=== PATIENT | male | born 1965 | race Caucasian/White ===

== ENCOUNTER 2022-12-14 10:54 | Outpatient (AMB) | payer OTHER, SELFPAY ==
--- OUTSIDE RECORDS SUMMARY | 2022-12-14 10:57 | XMS_ITS | Continuity of Care Document ---
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 Name Role Phone Casey Suarez MD Primary Care Physician Encounter [facility] Date(s): 11/25/20 - 12/25/20 [facility] [place] Adult [address] [place] [address]- Allergies, Adverse Reactions, Alerts Substance Reaction Severity Status amoxicillin heart racing Active acetaminophen-codeine ANAPHYLAXSIS Active Augmentin swelling of throat, diff breath, rash Active Bee Stings anaphylactic Active Immunizations Given and Recorded Vaccine Date Status Refusal Reason SARS-CoV-2 (COVID-19) mRNA BNT-162b2 vac 09/21/20 Recorded SARS-CoV-2 (COVID-19) mRNA BNT-162b2 vac 08/29/20 Recorded influenza virus vaccine, inactivated 04/22/20 Give n influenza virus vaccine, inactivated 1 05/26/19 Gi nini influenza virus vaccine, inactivated 03/21/18 Give n influenza virus vaccine, inactivated 03/06/17 Wong rded influenza virus vaccine, inactivated 2 03/10/16 Re corded influenza virus vaccine, inactivated 05/08/15 Wong rded pneumococcal 23-valent vaccine 3 05/06/17 Given pneumococcal 23-valent vaccine 04/21/16 Recorded pneumococcal 23-valent vaccine 04/20/16 Recorded pneumococcal 23-valent vaccine 12/18/15 Given tetanus/diphtheria/pertussis, acel(Tdap) 04/29/16 Given tetanus-diphtheria toxoids (Td) 01/03/14 Recorded Not Given Vaccine Date Status Refusal Reason Influenza Virus Vaccine (oldterm) 04/21/19 Not Giv en Parent Or Guardian Refuses 1Result Comment: Pt tolerated well. [facility] #[id number] 2Location History: [place] 3Result Comment: [05/06/2017] [facility]:[id number] Medications amiodarone 200 mg oral tablet 200 mg, 1, tablet, By Mouth, 2 times a day, # 60 tablet, Refills 0, Tot. Refills 0, Maintenance, 11/13/20 9:34:00 EDT, Route to Pharmacy Electronically, [facility], Partial fill upon patient request if the prescription is for a schedule... Start Date: 11/13/20 Status: Ordered aspirin 81 mg oral delayed release tablet 81 mg, 1, tablet, By Mouth, Daily, Future refills to come from cardiology or PCP, # 30 tablet, Refills 0, Tot. Refills 0, Maintenance, 12/13/20 9:32:00 EDT, Route to Pharmacy Electronically, [facility] #[id number], Partial fill upon patient reque... Start Date: 12/13/20 Stop Date: 01/12/21 Status: Ordered atorvastatin 80 mg oral tablet 1 tablet = 80 mg, By Mouth, Daily at bedtime, # 90 tablet, 4 Refills, Maintenance, 02/07/21 10:28:00 EDT, Tablet, [facility] #[id number], Partial fill upon patient request if the prescription isfor a schedule II opioid drug., 167.64, cm, ... Start Date: 02/07/21 Stop Date: 05/03/22 Status: Ordered atorvastatin 80 mg oral tablet 1 tablet = 80 mg, By Mouth, Daily at bedtime, for 30 days, # 30 tablet, 1 Refills, Hard Stop 02/07/21 10:28:00 EDT, 12/09/20 10:28:00 EDT, Tablet, [facility] #[id number], Partial fill upon patient request if the prescription is for a schedule II... Start Date: 12/09/20 Stop Date: 02/07/21 Status: Ordered clopidogrel 75 mg oral tablet 75 mg, 1, tablet, By Mouth, Daily, # 30 tablet, Refills 11, Tot. Refills 11, Maintenance, 12/09/20 17:12:00 EDT, Route to Pharmacy Electronically, [facility] #[id number], Partial fill upon patient request if the prescription is for a schedule II... Start Date: 12/09/20 Status: Ordered docusate sodium 100 mg oral tablet = 100 mg, By Mouth, 2 times a day, # 6 tablet, 0 Refills, Maintenance, 11/13/20 9:34:00 EDT, Tablet, [facility], Partial fill upon patient request if the prescription is for a schedule II opioid drug., 167.64, cm, 11/13/20 6:08:00 EDT, H... Start Date: 11/13/20 Stop Date: 11/16/20 Status: Ordered EpiPen 2-Sameer 0.3 mg injectable kit = 0.3 mg, Intramuscular, Once, Must go to hospital if used, # 1 box, 1 Refills, Soft Stop, 01/28/1710:33:03 Start Date: 01/28/17 Status: Ordered gabapentin 300 mg oral capsule 300 mg, 1, capsule, By Mouth, 3 times a day, # 90 capsule, Refills 6, Tot. Refills 6, Maintenance, 11/13/20 9:32:00 EDT, Route to Pharmacy Electronically, [facility], Partial fill upon patient request, 167.64, cm, 11/13/20 6:08:00 EDT, H... Start Date: 11/13/20 Stop Date: 06/11/21 Status: Ordered metoprolol 50 mg oral tablet 50 mg, 1, tablet, By Mouth, 2 times a day, Future refills to come from cardiology or PCP, # 60 capsule, Refills 0, Tot. Refills 0, Maintenance, 12/13/20 9:33:00 EDT, Route to Pharmacy Electronically,[facility] #[id number], Metoprolol tartrate ta... Start Date: 12/13/20 Stop Date: 01/12/21 Status: Ordered multivitamin Multiple Vitamins oral tablet 1 tablet, By Mouth, Daily, # 30 tablet, 0 Refills, Maintenance, 12/09/20 17:12:00 EDT, Tablet, [facility] #[id number], 1 tablet By Mouth Daily, 167.64, cm, 11/22/20 15:34:00 EDT, Height, 63.64, kg, 10/30/20 11:22:00 EDT, Dry Weight Start Date: 12/09/20 Stop Date: 06/07/21 Status: Ordered Nutritional Supplements See Instructions, # 90 each, Refills 11, Tot. Refills 11, Maintenance, High Protein Ensure Use TID DX Pancreatitis, Weight Loss ICD 10 K85.90 R63.4 3 [place] 3 Vanilla Height 5'6 Weight 130lbs, 12/20/20 7:33:00 EDT, Supply Start Date: 12/20/20 Status: Ordered omeprazole 40 mg oral enteric coated capsule 1 capsule = 40 mg, By Mouth, Daily, # 30 capsule, 10 Refills, Maintenance, 04/22/20 13:08:00 EST, EC Capsule, [facility] #[id number], 168, cm, 04/22/20 12:49:00 EST, Height, 63.5, kg, 08/07/19 9:46:00 EDT, Dry Weight Start Date: 04/22/20 Stop Date: 03/18/21 Status: Ordered pedialyte pedialyte, See Instructions, # 30 each, Refills 11, Tot. Refills 11, Maintenance, qd Dx: wt loss, 12/10/20 15:44:00 EDT, Supply Start Date: 12/10/20 Status: Ordered PEG-3350 with Electrolytes (Eqv-GoLYTELY) oral powder for reconstitution See Instructions, 1 glass every 15-30 minutes until finished, # 4,000 mL, 0 Refills, Maintenance, 08/26/20 16:28:00 EDT, [facility] #[id number], Partial fill upon patient request if the prescription is for a schedule II opioid drug., 1 glass ever... Start Date: 08/26/20 Status: Ordered ProAir HFA 90 mcg/inh inhalation aerosol with adapter 2, puffs, Inhalation, Every 6 hours, PRN, # 8.5 Gm, Refills 5, Tot. Refills 5, Maintenance, 07/04/20 8:18:00 EST, Aerosol, Route to Pharmacy Electronically, [id number], [facility] #[id number], 168, cm, 06/14/20 10:38:00... Start Date: 07/04/20 Status: Ordered tamsulosin 0.4 mg oral capsule 0.4 mg, 1, capsule, By Mouth, Daily, PER BELL HODGES, # 90 capsule, Refills 1, Tot. Refills 1, Maintenance, 10/16/20 8:15:00 EDT, Route to Pharmacy Electronically, [facility] #[id number], Partial fill upon patient request, 168, cm, 10/16/20... Start Date: 10/16/20 Status: Ordered traZODone 150 mg oral tablet 1 tablet, By Mouth, Daily at bedtime, PRN NEEDED FOR SLEEP, # 90 tablet, 1 Refills, Maintenance,10/16/20 8:15:00 EDT, [facility] #[id number], 168, cm, 10/16/20 7:49:00 EDT, Height, 60, kg, 10/16/20 7:49:00 EDT, Dry Weight Start Date: 10/16/20 Stop Date: 04/14/21 Status: Ordered Vicodin 5/500 Tablet By Mouth, Every 6 hours, 0 Refills, Maintenance, 04/20/19 14:26:28 EST, Partial fill upon patient request Start Date: 04/20/19 Status: Ordered Problem List Condition Effective Dates Status Health Status Inform ant Necrotizing pancreatitis(Confirmed) Active ETOH abuse(Confirmed) Active Atherosclerosis(Confirmed) 1 Active 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) 2 02/02/17 Active Chronic anemia(Confirmed) Active Chronic back pain(Confirmed) Active Chronic obstructive pulmonar y disease (COPD)(Confirmed) Active Brain concussion(Confirmed) Active Difficulty sleeping(Confirmed) Active Right rotator cuff tear(Confirmed) Active History of DVT (deep vein thrombosis)(Confirmed) Active Right hand pain(Confirmed) Active History of colonoscopy(Confirmed) 3 Active History of shoulder surgery( Confirmed) 4 Active Hypercholesterolemia(Confirmed) Active HTN (hypertension)(Confirmed) Active Cognitive impairment(Confirmed) Active Insomnia(Confirmed) 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 2Repeat EGD in 07/2020 for surveillance 73124; repeat 2019 4R shoulder 2017 5Dr. Jimbo (ENT surgeons) Social History Social History Type Response Smoking Status Current every day herve toney entered on: 12/17/15 Sex
--- OUTSIDE RECORDS SUMMARY | 2022-12-14 10:57 | XMS_ITS | Continuity of Care Document ---
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 Name Role Phone Casey Suarez MD Primary Care Physician Encounter [facility] [place](s): 08/13/21 - 10/23/[address] [address] Attending Physician: Evelio Santiago MD Admitting Physician: Evelio Santiago MD Allergies, Adverse Reactions, Alerts Substance Reaction Severity Status Bee Stings anaphylactic Active Augmentin swelling of throat, diff breath, rash Active amoxicillin heart racing Active acetaminophen-codeine ANAPHYLAXSIS Active Immunizations Given and Recorded Vaccine Date Status Refusal Reason SARS-CoV-2 (COVID-19) mRNA BNT-162b2 vac 05/12/21 Given SARS-CoV-2 (COVID-19) mRNA BNT-162b2 vac 09/21/20 Recorded SARS-CoV-2 (COVID-19) mRNA BNT-162b2 vac 08/29/20 Recorded influenza virus vaccine, inactivated 1 03/20/21 Gi nini influenza virus vaccine, inactivated 04/22/20 Give n influenza virus vaccine, inactivated 2 05/26/19 Gi nini influenza virus vaccine, inactivated 03/21/18 Give n influenza virus vaccine, inactivated 03/06/17 Wong rded influenza virus vaccine, inactivated 3 03/10/16 Re corded influenza virus vaccine, inactivated 05/08/15 Wong rded pneumococcal 23-valent vaccine 4 05/06/17 Given pneumococcal 23-valent vaccine 04/21/16 Recorded pneumococcal 23-valent vaccine 04/20/16 Recorded pneumococcal 23-valent vaccine 12/18/15 Given tetanus/diphtheria/pertussis, acel(Tdap) 04/29/16 Given tetanus-diphtheria toxoids (Td) 01/03/14 Recorded Not Given Vaccine Date Status Refusal Reason Influenza Virus Vaccine (oldterm) 04/21/19 Not Giv en Parent Or Guardian Refuses 1Result Comment: [facility]# [address] [id number] 2Result Comment: Pt tolerated well. [facility] #[id number] 3Location History: [facility] 4Result Comment: [05/06/2017] [facility]LY [facility]:[id number] Medications aspirin 81 mg oral delayed release tablet 1 tablet, By Mouth, Daily, # 90 tablet, 0 Refills, [facility] #[id number], 167.6, cm, :54:00 EDT, Height, 63.6, kg, 09/22/21 9:54:00 EDT, Dry Weight Start Date: 10/10/21 Status: Ordered atorvastatin 80 mg oral tablet 1 tablet = 80 mg, By Mouth, Daily at bedtime, # 90 tablet, 3 Refills, Maintenance, 08/14/21 15:28:00 EDT, Tablet, [facility] #[id number], 167.64, cm, 08/14/21 15:12:00 EDT, Height, 63.64, kg, 10/30/20 11:22:00 EDT, Dry Weight Start Date: 08/14/21 Stop Date: 08/09/22 Status: Ordered clopidogrel 75 mg oral tablet 75 mg, 1, tablet, By Mouth, Daily, # 30 tablet, Refills 11, Tot. Refills 11, Maintenance, 12/09/20 17:12:00 EDT, Route to Pharmacy Electronically, [facility] #[id number], Partial fill upon patient request if the prescription is for a schedule II... Start Date: 12/09/20 Status: Ordered EpiPen 2-Sameer 0.3 mg injectable kit = 0.3 mg, Intramuscular, Once, Must go to hospital if used, # 1 each, 1 Refills, Soft Stop, 01/09/21 14:45:00 EDT, [facility] #[id number], 167.64, cm, 01/09/21 14:27:00 EDT, Height, 63.64, kg, 10/30/20 11:22:00 EDT, Dry Weight Start Date: 01/09/21 Status: Ordered gabapentin 300 mg oral capsule 600 mg, 2, capsule, By Mouth, 3 times a day, # 540 capsule, Refills 6, Tot. Refills 6, Maintenance,01/09/21 14:43:00 EDT, Do Not Route, Partial fill upon patient request Start Date: 01/09/21 Stop Date: 08/07/21 Status: Ordered Large Blood Pressure Cuff Large Blood Pressure Cuff, See Instructions, # 1 each, Refills 0, Tot. Refills 0, Maintenance, Large BP Cuff use as directed dx hypertension ICD 10 I11.9 Length of need Lifetime Weight 130lbs height 5'6, 12/27/20 12:39:00 EDT, Supply Start Date: 12/27/20 Status: Ordered Metoprolol Succinate ER 50 mg oral tablet, extended release 1 tablet, By Mouth, Daily, # 90 tablet, 1 Refills, [facility] #[id number], 167.6, cm, :54:00 EDT, Height, 63.6, kg, 09/22/21 9:54:00 EDT, Dry Weight Start Date: 10/06/21 Status: Ordered multivitamin Multiple Vitamins oral tablet 1 tablet, By Mouth, Daily, # 90 tablet, 1 Refills, [facility] #[id number], 90, TAKE 1 TABLET BY MOUTH DAILY, 167.64, cm, 04/21/21 13:13:00 EST, Height, 63.64, kg, 10/30/20 11:22:00 EDT, Dry Weight Start Date: 07/10/21 Status: Ordered Nutritional Supplements See Instructions, # 90 each, Refills 11, Tot. Refills 11, Maintenance, High Protein Ensure Use TID DX Pancreatitis, Weight Loss ICD 10 K85.90 R63.4 3 [place] 3 Vanilla Height 5'6 Weight 130lbs, 12/20/20 7:33:00 EDT, Supply Start Date: 12/20/20 Status: Ordered omeprazole 40 mg oral enteric coated capsule 1 capsule = 40 mg, By Mouth, Daily, # 30 capsule, 2 Refills, Maintenance, 09/10/21 14:25:00 EDT, ECCapsule, [facility] #[id number], 167.64, cm, 09/01/21 8:31:00 EDT, Height, 63.64, kg, 10/30/2110:22:00 EDT, Dry Weight Start Date: 09/10/21 Stop Date: 12/09/21 Status: Ordered Paxlovid 150 mg-100 mg oral tablet See Instructions, follow package instructions, not renally impaired, # 30 tablet, 0 Refills, Maintenance, 09/23/21 15:45:00 EDT, [facility] #[id number], Partial fill upon patient request if the prescription is for a schedule II opioid drug., foll... Start Date: 09/23/21 Status: Ordered PEG-3350 with Electrolytes (Eqv-GoLYTELY) oral powder for reconstitution See Instructions, 1 glass every 15-30 minutes until finished, # 4,000 mL, 0 Refills, Maintenance, 08/26/20 16:28:00 EDT, [facility] #[id number], Partial fill upon patient request if the prescription is for a schedule II opioid drug., 1 glass ever... Start Date: 08/26/20 Status: Ordered ProAir HFA 90 mcg/inh inhalation aerosol with adapter 2, puffs, Inhalation, Every 6 hours, PRN, # 8.5 Gm, Refills 5, Tot. Refills 5, Maintenance, 07/04/20 8:18:00 EST, Aerosol, Route to Pharmacy Electronically, [id number], [facility] #[id number], 168, cm, 06/14/20 10:38:00... Start Date: 07/04/20 Status: Ordered pulse oxmeter pulse oxmeter, See Instructions, # 1 each, Refills 0, Tot. Refills 0, Maintenance, Pulse oximeter use as directed dx copd Icd 10 J44.9 Length of need Lifetime height 5'6 weight 130lbs, 12/27/20 12:44:00 EDT, Supply Start Date: 12/27/20 Status: Ordered standing scale standing scale, See Instructions, # 1 each, Refills 0, Tot. Refills 0, Maintenance, standing scale use as directed dx weight loss Icd 10 R63.4 length of use lifetime weight 130lbs ht 5'6, 12/27/20 12:47:00 EDT, Supply Start Date: 12/27/20 Status: Ordered tamsulosin 0.4 mg oral capsule 1, capsule, By Mouth, Daily, # 90 capsule, Refills 1, Route to Pharmacy Electronically, [facility] #[id number], 167.6, cm, 09/22/21 9:54:00 EDT, Height, 63.6, kg, 09/22/21 9:54:00 EDT, Dry Weight Start Date: 10/10/21 Status: Ordered teds stockings teds stockings, See Instructions, # 1 each, Refills 0, Tot. Refills 0, Maintenance, teds stockings 1 pair use as directed dx deep veing thrombosis icd 10 I 82.503 length of need lifetime 130lbs ht 5'6, 12/27/20 13:07:00 EDT, Supply Start Date: 12/27/20 Status: Ordered Teds stockings bilateral legs Teds stockings bilateral legs, See Instructions, # 2 each, Refills 0, Tot. Refills 0, Maintenance, Teds compression stockings bilateral legs use as directed Length: Above the calf 2 pairs DX: Deep vein thrombosis Icd 10 I82.503 Length of need: L... 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) 2 02/02/17 Active Chronic anemia(Confirmed) Active Chronic back pain(Confirmed) Active Chronic obstructive pulmonar y disease (COPD)(Confirmed) Active Brain concussion(Confirmed) Active Difficulty sleeping(Confirmed) Active Right rotator cuff tear(Confirmed) Active History of DVT (deep vein thrombosis)(Confirmed) Active Right hand pain(Confirmed) Active History of alcohol abuse(Confirmed) Active History of colonoscopy(Confirmed) 3 Active History of coronary artery b ypass graft(Confirmed) Active History of shoulder surgery( Confirmed) 4 Active Hypercholesterolemia(Confirmed) Active HTN (hypertension)(Confirmed) Active Cognitive impairment(Confirmed) Active Infected sebaceous cyst(Confirmed) Active Leukoplakia of oral mucosa(C onfirmed) 5 Active Nocturia(Confirmed) Active Paresthesias(Confirmed) Active Postconcussion syndrome(Confirmed) Active PTSD (post-traumatic stress disorder)(Confirmed) Active Depression, major, recurrent , in remission(Confirmed) Active Sciatica(Confirmed) Active Shoulder pain, right(Confirmed) Active Tobacco use(Confirmed) Active Tubular adenoma of colon(Confirmed) 02/02/17 Active 1Atherosclerosis by lumbar spine x-ray 2018. 2Repeat EGD in 07/2020 for surveillance 46739; repeat 2019 4R shoulder 2018 5Dr. Jimbo (ENT surgeons) Vital Signs Most recent to oldest [Reference Range]: 1 Height 167.6 cm (09/22/21 9:54 AM) Weight 63.6 kg (09/22/21 9:54 AM) Body Mass Index [18.5-24.99] 22.64 (09/22/21 9:54 AM) Dry Weight 63.6 kg (09/22/21 9:54 AM) Weight Obtained Via Patient/family state d (09/22/21 9:54 AM) Dry Weight Obtained Via Patient/family s tated (09/22/21 9:54 AM) Social History Social History Type Response Smoking Status Current every day herve toney entered on: 12/17/15 Sex
--- OUTSIDE RECORDS SUMMARY | 2022-12-14 10:57 | XMS_ITS | Continuity of Care Document ---
Author Name Unknown Organization [facility] [place] Address [address] [place] [address]- Care Team Providers Care Customer Care Voice Consultant Name Role Phone Casey Suarez MD Primary Care Physician [phone] Encounter [facility] Date(s): 02/12/20 - 03/13/20 [facility] [address] [place] [address] Allergies, Adverse Reactions, Alerts Substance Reaction Severity Status amoxicillin unknown Active acetaminophen-codeine ANAPHYLAXSIS Active Augmentin swelling of throat, diff breath, rash Active Bee Stings Bee Active Immunizations Given and Recorded Vaccine Date Status Refusal Reason influenza virus vaccine, inactivated 1 05/26/19 Gi nini influenza virus vaccine, inactivated 03/21/18 Give n influenza virus vaccine, inactivated 03/06/17 Wong rded influenza virus vaccine, inactivated 2 03/10/16 Re corded pneumococcal 23-valent vaccine 3 05/06/17 Given pneumococcal 23-valent vaccine 04/21/16 Recorded pneumococcal 23-valent vaccine 12/18/15 Given tetanus/diphtheria/pertussis, acel(Tdap) 04/29/16 Given Not Given Vaccine Date Status Refusal Reason Influenza Virus Vaccine (oldterm) 04/21/19 Not Giv en Parent Or Guardian Refuses 1Result Comment: Pt tolerated well. [facility] #[id number] 2Location History: [place] 3Result Comment: [05/06/2017] [facility]:[id number] Medications albuterol 0.083% inhalation solution 3 mL = 2.5 mg, Inhalation, Every 6 hours, # 120 each, 2 Refills, Maintenance, 07/18/18 13:46:17 EST, Solution Start Date: 07/18/18 Status: Ordered aspirin 81 mg oral tablet 1 tablet = 81 mg, By Mouth, Daily, 0 Refills, Maintenance, 07/24/19 9:23:00 EST Start Date: 07/24/19 Status: Ordered Creon 36,000 units oral delayed release capsule 1 capsule, By Mouth, 3 times a day, with each meal, # 90 capsule, 3 Refills, Maintenance, 08/07/19 11:39:00 EDT, [facility] #[id number], 1 capsule By Mouth 3 times a day,Instr:with each meal, 168, cm, 08/07/19 9:46:00 EDT, Height, 63.5, kg, 08/06... Start Date: 08/07/19 Status: Ordered Crestor 40 mg oral tablet 1 tablet = 40 mg, By Mouth, Daily, # 90 tablet, 3 Refills, Maintenance, 12/28/19 11:53:00 EDT, Tablet, [facility] #[id number], 168, cm, 10/13/19 10:19:00 EDT, Height, 63.5, kg, 08/07/19 9:46:00 EDT, Dry Weight Start Date: 12/28/19 Stop Date: 12/22/20 Status: Ordered ENSURE/VANILLA ENSURE/VANILLA, See Instructions, # 90 each, Refills 1, Tot. Refills 1, Maintenance, VANILLA ENSURETID DX PANCREATITIS AND WEIGHT LOSS, 07/24/19 9:22:00 EST, Compound Start Date: 07/24/19 Status: Ordered EpiPen 2-Sameer 0.3 mg injectable kit = 0.3 mg, Intramuscular, Once, Must go to hospital if used, # 1 box, 1 Refills, Soft Stop, 01/28/1710:33:03 Start Date: 01/28/17 Status: Ordered folic acid 1 mg oral tablet 1 mg, 1, tablet, By Mouth, Daily, for 30 days, TK 1 T PO QD, # 30 tablet, Refills 5, Tot. Refills 5, Hard Stop 05/22/20 11:21:00 EST, 11/24/19 11:21:00 EDT, Route to Pharmacy Electronically, [facility] #[id number], 168, cm, 10/13/19 10:19:00 EDT,... Start Date: 11/24/19 Stop Date: 05/22/20 Status: Ordered folic acid 1 mg oral tablet 1 mg, 1, tablet, By Mouth, Daily, TK 1 T PO QD, # 30 tablet, Refills 5, Tot. Refills 5, Maintenance, 05/22/20 11:21:00 EST, Route to Pharmacy Electronically, [facility] #[id number], 168, cm, 10/13/19 10:19:00 EDT, Height, 63.5, kg, 08/07/19 9:46:... Start Date: 05/22/20 Stop Date: 11/18/20 Status: Ordered lisinopril 10 mg oral tablet See Instructions, TAKE 1 TABLET BY MOUTH EVERY DAY, # 30 tablet, Refills 2, Tot. Refills 2, Soft Stop, 02/13/20 14:40:00 EDT, Instructions Replace Required Details, Route to Pharmacy Electronically, [facility] #[id number], 168, cm, 10/13/19 10:19... Start Date: 02/13/20 Status: Ordered multivitamin Multiple Vitamins oral tablet 1 tablet, By Mouth, Daily, # 30 tablet, 5 Refills, Maintenance, 11/27/19 12:09:00 EDT, Tablet, [facility] #81377, 1 tablet By Mouth Daily,x30 days, 168, cm, 10/13/19 10:19:00 EDT, Height, 63.5, kg, 08/07/19 9:46:00 EDT, Dry Weight Start Date: 11/27/19 Stop Date: 05/25/20 Status: Ordered omeprazole 40 mg oral enteric coated capsule 1 capsule = 40 mg, By Mouth, Daily, # 30 capsule, 10 Refills, Maintenance, 08/14/19 8:52:00 EDT, ECCapsule, [facility] #88048, 168, cm, 08/07/19 9:46:00 EDT, Height, 63.5, kg, 08/07/19 9:46:00 EDT, Dry Weight Start Date: 08/14/19 Stop Date: 07/09/20 Status: Ordered OXcarbazepine 300 mg oral tablet 300 mg, 1, tablet, By Mouth, 2 times a day, 1 tablet in am 2 tablet at hs, Refills 0, Maintenance, 07/25/19 10:18:00 EST Start Date: 07/25/19 Status: Ordered PORTABLE NEBULIZER WITH ALL SUPPLIES. TUBING, CUP,MASK,WATER FILTER PORTABLE NEBULIZER WITH ALL SUPPLIES. TUBING, CUP,MASK,WATER FILTER, See Instructions, # 1 each, Refills 0, Tot. Refills 0, Maintenance, TO BE USED DAILY DX: COPD, 03/21/18 11:40:41 EDT, Compound Start Date: 03/21/18 Status: Ordered ProAir HFA 90 mcg/inh inhalation aerosol with adapter 2, puffs, Inhalation, Every 6 hours, PRN, # 8.5 Gm, Refills 2, Tot. Refills 2, Maintenance, 07/24/19 16:26:00 EST, Aerosol, Route to Pharmacy Electronically, [id number], [facility] #[id number], 168, cm, 07/24/19 9:01:00... Start Date: 07/24/19 Status: Ordered tamsulosin 0.4 mg oral capsule 0.4 mg, 1, capsule, By Mouth, Daily, Refills 0, Maintenance, 07/25/19 10:23:00 EST Start Date: 07/25/19 Status: Ordered tiZANidine 4 mg oral capsule 2 capsule = 8 mg, By Mouth, 3 times a day, 0 Refills, Maintenance, 10/13/19 10:32:00 EDT Start Date: 10/13/19 Status: Ordered traZODone 150 mg oral tablet 1 tablet, By Mouth, Daily at bedtime, PRN NEEDED FOR SLEEP, # 30 tablet, 5 Refills, Maintenance,12/28/19 11:34:00 EDT, [facility] #[id number], 168, cm, 10/13/19 10:19:00 EDT, Height, 63.5, kg, 08/07/19 9:46:00 EDT, Dry Weight Start Date: 12/28/19 Status: Ordered Turmeric = 500 mg, By Mouth, Daily, 0 Refills, Maintenance, 07/24/19 9:24:00 EST Start Date: 07/24/19 Status: Ordered Vicodin 5/500 Tablet By Mouth, Every 6 hours, 0 Refills, Maintenance, 04/20/19 14:26:28 EST, Partial fill upon patient request Start Date: 04/20/19 Status: Ordered Vitron-C 125 mg-65 mg oral tablet 1 tablet, By Mouth, Daily, 0 Refills, Maintenance, 07/04/19 8:28:00 EST Start Date: 07/04/19 Status: Ordered Problem List Condition Effective Dates Status Health Status Inform ant Necrotizing pancreatitis(Confirmed) Active ETOH abuse(Confirmed) Active Atherosclerosis(Confirmed) 1 Active 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) 2 02/02/17 Active Chronic back pain(Confirmed) Active Chronic obstructive pulmonar y disease (COPD)(Confirmed) Active Brain concussion(Confirmed) Active Difficulty sleeping(Confirmed) Active Right rotator cuff tear(Confirmed) Active History of DVT (deep vein thrombosis)(Confirmed) Active Right hand pain(Confirmed) Active Headache(Confirmed) Active History of colonoscopy(Confirmed) 3 Active History of shoulder surgery( Confirmed) 4 Active Hypercholesterolemia(Confirmed) Active HTN (hypertension)(Confirmed) Active Cognitive impairment(Confirmed) Active Insomnia(Confirmed) Active 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 2Repeat EGD in 07/2020 for surveillance 88688; repeat 2019 4R shoulder 2018 5Dr. Jimbo (ENT surgeons) Social History Social History Type Response Smoking Status Current every day herve toney entered on: 12/17/15 Sex
--- OUTSIDE RECORDS SUMMARY | 2022-12-14 10:57 | XMS_ITS | Continuity of Care Document ---
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# [address] 74507-409-07 2Result Comment: Pt tolerated well. [facility] #[id number] 3Location History: [facility] 4Result Comment: [05/06/2017] [facility]:9924-2628-74 Medications aspirin 81 mg oral delayed release tablet 1 tablet, By Mouth, Daily, # 90 tablet, 0 Refills, [facility] #[id number], 167.64, cm, 04/21/21 13:13:00 EST, Height, 63.64, kg, 10/30/20 11:22:00 EDT, Dry Weight Start Date: 07/11/21 Status: Ordered atorvastatin 80 mg oral tablet 1 tablet = 80 mg, By Mouth, Daily at bedtime, # 90 tablet, 3 Refills, Maintenance, 02/12/21 10:54:00 EDT, Tablet, [email or web address] #[id number], 167.64, cm, 01/13/21 9:46:00 EDT, Height, 63.64, kg, 10/30/20 11:22:00 EDT, Dry Weight Start Date: 02/12/21 Stop Date: 02/07/22 Status: Ordered clopidogrel 75 mg oral tablet 75 mg, 1, tablet, By Mouth, Daily, # 30 tablet, Refills 11, Tot. Refills 11, Maintenance, 12/09/20 17:12:00 EDT, Route to Pharmacy Electronically, [email or web address] #[id number], Partial fill upon patient request if the prescription is for a schedule II... Start Date: 12/09/20 Status: Ordered EpiPen 2-Sameer 0.3 mg injectable kit = 0.3 mg, Intramuscular, Once, Must go to hospital if used, # 1 each, 1 Refills, Soft Stop, 01/09/21 14:45:00 EDT, [facility] #[id number], 167.64, cm, 01/09/21 14:27:00 EDT, Height, 63.64, [...] EDT, Supply Start Date: 12/27/20 Status: Ordered metoprolol 50 mg oral tablet, extended release 50 mg, 1, tablet, By Mouth, Daily, # 90 tablet, Refills 2, Tot. Refills 2, Maintenance, 01/13/21 9:59:00 EDT, Route to Pharmacy Electronically, [facility] #[id number], Partial fill upon patient request if the prescription is for a schedule II opi... Start Date: 01/13/21 Status: Ordered multivitamin Multiple Vitamins oral tablet 1 tablet, By Mouth, Daily, # 90 tablet, 1 Refills, [facility] #[id number], 90, TAKE 1 TABLET BY MOUTH DAILY, 167.64, cm, 04/21/21 13:13:00 EST, Height, 63.64, kg, 10/30/20 11:22:00 EDT, Dry Weight Start Date: 07/10/21 Status: Ordered Nutritional Supplements See Instructions, # 90 each, Refills 11, Tot. Refills 11, Maintenance, High Protein Ensure Use TID DX Pancreatitis, Weight Loss ICD 10 K85.90 R63.4 3 [place] 3 Vanilla Height 5'6 Weight 130lbs, 12/20/20 7:33:00 EDT, Supply Start Date: 12/20/20 Status: Ordered omeprazole 40 mg oral enteric coated capsule 1 capsule = 40 mg, By Mouth, Daily, # 30 capsule, 2 Refills, Maintenance, 01/14/21 14:05:00 EDT, ECCapsule, [facility] #[id number], 167.64, cm, 01/13/21 9:46:00 EDT, Height, 63.64, kg, 10/30/2110:22:00 EDT, Dry Weight Start Date: 01/14/21 Stop Date: 04/14/21 Status: Ordered PEG-3350 with Electrolytes (Eqv-GoLYTELY) oral powder for reconstitution See Instructions, 1 glass every 15-30 minutes until finished, # 4,000 mL, 0 Refills, Maintenance, 08/26/20 16:28:00 EDT, [facility] #[id number], Partial fill upon patient request if the prescription is for a schedule II opioid drug., 1 glass ever... Start Date: 08/26/20 Status: Ordered ProAir HFA 90 mcg/inh inhalation aerosol with adapter 2, puffs, Inhalation, Every 6 hours, PRN, # 8.5 Gm, Refills 5, Tot. Refills 5, Maintenance, 07/04/20 8:18:00 EST, Aerosol, Route to Pharmacy Electronically, [id number], [facility] #[id number], 168, cm, 06/14/20 10:38:00... Start Date: 07/04/20 [...] capsule, Refills 1, Route to Pharmacy Electronically, [facility] #[id number], 167.64, cm, 03/20/21 8:49:00 EDT, Height, 63.64, kg, 10/30/20 11:22:00 EDT, Dry Weight Start Date: 04/08/21 Status: Ordered teds stockings teds stockings, See [...] FOR SLEEP, # 90 tablet, 1 Refills, [facility] #61556, 167.64, cm, 03/20/21 8:49:00 EDT, Height, 63.64, kg, 10/30/20 11:22:00 EDT, Dry Weight Start Date: 04/13/21 Status: Ordered Vicodin 5/500 Tablet By Mouth, Every 6 hours, 0 Refills, Maintenance, 04/20/19 14:26:28 EST, Partial fill upon patient request Start Date: 04/20/19 Status: Ordered Problem List Condition Effective Dates Status Health Status Inform ant Necrotizing pancreatitis(Confirmed) Active ETOH abuse(Confirmed) Active Anxiety(Confirmed) Active Atherosclerosis(Confirmed) 1 Active Gan's [...] Cognitive impairment(Confirmed) Active Infected sebaceous cyst(Confirmed) Active Insomnia(Confirmed) Active Leukoplakia of oral mucosa(C onfirmed) 5 Active Low back pain(Confirmed) Active Nocturia(Confirmed) Active Paresthesias(Confirmed) Active Postconcussion syndrome(Confirmed) Active PTSD (post-traumatic stress disorder)(Confirmed) Active Depression, major, recurrent , in remission(Confirmed) Active Sciatica(Confirmed) Active Shoulder pain, right(Confirmed) Active Tobacco use(Confirmed) Active Tubular adenoma of colon(Confirmed) 02/02/17 Active 1Atherosclerosis by lumbar spine x-ray 2019. 2Repeat EGD in 07/2020 for surveillance 00795; repeat 2019 4R shoulder 2018 5Dr. Jimbo (ENT surgeons) Social History Social History Type Response Smoking Status Current every day herve toney entered on: 12/17/15 Sex
--- OUTSIDE RECORDS SUMMARY | 2022-12-14 10:58 | XMS_ITS | Continuity of Care Document ---
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 [facility] #[id number] 2Location History: [facility] 3Result Comment: [05/06/2017] [facility]:7585-5657-09 Medications aspirin 81 mg oral delayed release tablet 81 mg, 1, tablet, By Mouth, Daily, # 90 tablet, Refills 1, Tot. Refills 1, Maintenance, 01/09/21 14:52:00 EDT, Route to Pharmacy Electronically, [facility] #[id number], Partial fill upon patientrequest if the prescription is for a schedule II op... Start Date: 01/09/21 Status: Ordered atorvastatin 80 mg oral tablet 1 tablet = 80 mg, By Mouth, Daily at bedtime, # 90 tablet, 4 Refills, Maintenance, 01/09/21 14:44:00 EDT, Tablet, [facility] #[id number], Partial fill upon patient request if the prescription isfor a schedule II opioid drug., 167.64, cm, ... Start Date: 01/09/21 Stop Date: 04/04/22 Status: Ordered clopidogrel 75 mg oral tablet 75 mg, 1, tablet, By Mouth, Daily, # 30 tablet, Refills 11, Tot. Refills 11, Maintenance, 12/09/20 17:12:00 EDT, Route to Pharmacy Electronically, [facility] #[id number], Partial fill upon patient request if the prescription is for a schedule II... Start Date: 12/09/20 Status: Ordered EpiPen 2-Sameer 0.3 mg injectable kit = 0.3 mg, Intramuscular, Once, Must go to hospital if used, # 1 each, 1 Refills, Soft Stop, 01/09/21 14:45:00 EDT, [facility] #[id number], 167.64, cm, 01/09/21 14:27:00 EDT, Height, 63.64, [...] 01/13/21 9:59:00 EDT, Route to Pharmacy Electronically, [facility] #[id number], Partial fill upon patient request if the prescription is for a schedule II opi... Start Date: 01/13/21 Status: Ordered multivitamin Multiple Vitamins oral tablet 1 tablet, By Mouth, Daily, # 90 tablet, 1 Refills, Maintenance, 01/09/21 14:44:00 EDT, Tablet, [facility] #[id number], 1 tablet By Mouth Daily, 167.64, cm, 01/09/21 14:27:00 EDT, Height, 63.64, kg, 10/30/20 11:22:00 EDT, Dry Weight Start Date: 01/09/21 Status: Ordered Nutritional Supplements See Instructions, # 90 each, Refills 11, Tot. Refills 11, Maintenance, High Protein Ensure Use TID DX Pancreatitis, Weight Loss ICD 10 K85.90 R63.4 3 [place] 3 Vanilla Height 5'6 Weight 130lbs, 12/20/20 7:33:00 EDT, Supply Start Date: 12/20/20 Status: Ordered omeprazole 40 mg oral enteric coated capsule 1 capsule = 40 mg, By Mouth, Daily, # 30 capsule, 2 Refills, Maintenance, 01/14/21 14:05:00 EDT, ECCapsule, [facility] #[id number], 167.64, cm, 01/13/21 9:46:00 EDT, Height, 63.64, kg, 10/30/2110:22:00 EDT, Dry Weight Start Date: 01/14/21 Stop Date: 04/14/21 Status: Ordered PEG-3350 with Electrolytes (Eqv-GoLYTELY) oral powder for reconstitution See Instructions, 1 glass every 15-30 minutes until finished, # 4,000 mL, 0 Refills, Maintenance, 08/26/20 16:28:00 EDT, [facility] #[id number], Partial fill upon patient request if the prescription is for a schedule II opioid drug., 1 glass ever... Start Date: 08/26/20 Status: Ordered ProAir HFA 90 mcg/inh inhalation aerosol with adapter 2, puffs, Inhalation, Every 6 hours, PRN, # 8.5 Gm, Refills 5, Tot. Refills 5, Maintenance, 07/04/20 8:18:00 EST, Aerosol, Route to Pharmacy Electronically, [id number], [facility] #[id number], 168, cm, 06/14/20 10:38:00... Start Date: 07/04/20 [...] 10/16/20 8:15:00 EDT, Route to Pharmacy Electronically, [facility] #[id number], Partial fill upon patient request, 168, cm, 10/16/20... Start Date: 10/16/20 Status: Ordered teds stockings teds stockings, See [...] 90 tablet, 1 Refills, Maintenance,10/16/20 8:15:00 EDT, [facility] #[id number], 168, cm, 10/16/20 7:49:00 EDT, Height, 60, [...] 2019. 2Repeat EGD in 07/2020 for surveillance 02878; repeat 2019 4R shoulder 2018 5Dr. Jimbo (ENT surgeons) Social History Social History Type Response Smoking Status Current every day herve toney entered on: 12/17/15 Sex
--- OUTSIDE RECORDS SUMMARY | 2022-12-14 10:58 | XMS_ITS | Continuity of Care Document ---
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 [facility] #[id number] 2Location History: [place] 3Result Comment: [05/06/2017] [facility]:[id number] Medications Creon 36,000 units oral delayed release capsule 1 capsule, By Mouth, 3 times a day, with each meal, # 90 capsule, 3 Refills, Maintenance, 08/07/19 11:39:00 EDT, [facility] #[id number], 1 capsule By Mouth 3 times a day,Instr:with each meal, 168, cm, 08/07/19 9:46:00 EDT, Height, 63.5, kg, 08/06... Start Date: 08/07/19 Status: Ordered Crestor 40 mg oral tablet 1 tablet = 40 mg, By Mouth, Daily, # 90 tablet, 3 Refills, Maintenance, 09/12/20 12:59:00 EDT, Tablet Start Date: 09/12/20 Stop Date: 09/07/21 Status: Ordered ENSURE/VANILLA ENSURE/VANILLA, See Instructions, # 6 pack/packet, Refills 11, Tot. Refills 11, Maintenance, EnsureMax Protein Formula TID DX Pancreatitis Weight Loss 3 [place] 1 Vanilla, 08/28/20 7:45:00 EDT, Compound Start Date: 08/28/20 Status: Ordered EpiPen 2-Sameer 0.3 mg injectable kit = 0.3 mg, Intramuscular, Once, Must go to hospital if used, # 1 box, 1 Refills, Soft Stop, 01/28/1710:33:03 Start Date: 01/28/17 Status: Ordered gabapentin 300 mg oral capsule 300 mg, 1, capsule, By Mouth, 3 times a day, # 90 capsule, Refills 6, Tot. Refills 6, Maintenance, 04/22/20 13:38:00 EST, Route to Pharmacy Electronically, [facility] #[id number], Partial fill upon patient request, 168, cm, 04/22/20 12:49:00 EST,... Start Date: 04/22/20 Status: Ordered multivitamin Multiple Vitamins oral tablet 1 tablet, By Mouth, Daily, # 30 tablet, 5 Refills, Maintenance, 04/22/20 13:08:00 EST, Tablet, [facility] #[id number], 1 tablet By Mouth Daily,x30 days, 168, cm, 04/22/20 12:49:00 EST, Height, 63.5, kg, 08/07/19 9:46:00 EDT, Dry Weight Start Date: 04/22/20 Stop Date: 10/19/20 Status: Ordered omeprazole 40 mg oral enteric coated capsule 1 capsule = 40 mg, By Mouth, Daily, # 30 capsule, 10 Refills, Maintenance, 04/22/20 13:08:00 EST, EC Capsule, [facility] #[id number], 168, cm, 04/22/20 12:49:00 EST, Height, 63.5, kg, 08/07/19 9:46:00 EDT, Dry Weight Start Date: 04/22/20 Stop Date: 03/18/21 Status: Ordered OXcarbazepine 300 mg oral tablet 300 mg, 1, tablet, By Mouth, 2 times a day, 1 tablet in am 2 tablet at hs, Refills 0, Maintenance, 07/25/19 10:18:00 EST Start Date: 07/25/19 Status: Ordered PEG-3350 with Electrolytes (Eqv-GoLYTELY) oral powder for reconstitution See Instructions, 1 glass every 15-30 minutes until finished, # 4,000 mL, 0 Refills, Maintenance, 08/26/20 16:28:00 EDT, [facility] #[id number], Partial fill upon patient request if the prescription is for a schedule II opioid drug., 1 glass ever... Start Date: 08/26/20 Status: Ordered ProAir HFA 90 mcg/inh inhalation aerosol with adapter 2, puffs, Inhalation, Every 6 hours, PRN, # 8.5 Gm, Refills 5, Tot. Refills 5, Maintenance, 07/04/20 8:18:00 EST, Aerosol, Route to Pharmacy Electronically, [id number], [facility] #[id number], 168, cm, 06/14/20 10:38:00... Start Date: 07/04/20 Status: Ordered tamsulosin 0.4 mg oral capsule 0.4 mg, 1, capsule, By Mouth, Daily, PER BELL HODGES, # 90 capsule, Refills 1, Tot. Refills 1, Maintenance, 04/29/20 16:06:00 EST, Route to Pharmacy Electronically, [facility] #[id number],Partial fill upon patient request, 168, cm, ... Start Date: 04/29/20 Status: Ordered traZODone 150 mg oral tablet 1 tablet, By Mouth, Daily at bedtime, PRN NEEDED FOR SLEEP, # 30 tablet, 5 Refills, Maintenance,04/22/20 13:08:00 EST, [facility] #[id number], 168, cm, 04/22/20 12:49:00 EST, Height, 63.5, kg, 08/07/19 9:46:00 EDT, Dry Weight Start Date: 04/22/20 Status: Ordered Vicodin 5/500 Tablet By Mouth, [...] 2019. 2Repeat EGD in 07/2020 for surveillance 57842; repeat 2019 4R shoulder 2018 5DrShabnam Choi (ENT surgeons) Social History Social History Type Response Smoking Status Current every day herve toney entered on: 12/17/15 Sex
--- OUTSIDE RECORDS SUMMARY | 2022-12-14 10:58 | XMS_ITS | Continuity of Care Document ---
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 [facility] #[id number] 2Location History: [place] 3Result Comment: [05/06/2017] [facility]:[id number] Medications albuterol 0.083% inhalation solution 3 mL = 2.5 mg, Inhalation, Every 6 hours, # 120 each, 2 Refills, Maintenance, 04/30/20 11:23:00 EST, Solution, [facility] #[id number], 168, cm, 04/30/20 11:04:00 EST, Height, 63.5, kg, 08/07/19 9:46:00 EDT, Dry Weight Start Date: 04/30/20 Status: Ordered Creon 36,000 units oral delayed release capsule 1 capsule, By Mouth, 3 times a day, with each meal, # 90 capsule, 3 Refills, Maintenance, 08/07/19 11:39:00 EDT, [facility] #[id number], 1 capsule By Mouth 3 times a day,Instr:with each meal, 168, cm, 08/07/19 9:46:00 EDT, Height, 63.5, kg, 08/06... Start Date: 08/07/19 Status: Ordered ENSURE/VANILLA ENSURE/VANILLA, See Instructions, # 6 pack/packet, Refills 11, Tot. Refills 11, Maintenance, EnsureMax Protein Formula TID DX Pancreatitis Weight Loss 3 [place] 1 Vanilla, 06/25/20 9:20:00 EST, Compound Start Date: 06/25/20 Status: Ordered EpiPen 2-Sameer 0.3 mg injectable kit = 0.3 mg, Intramuscular, Once, Must go to hospital if used, # 1 box, 1 Refills, Soft Stop, 01/28/1710:33:03 Start Date: 01/28/17 Status: Ordered face shield face shield, See Instructions, # 1 pack/packet, Refills 0, Tot. Refills 0, Maintenance, DX viral syndrome ICD10 B34.9 Use as directed WT: 136lbs HT: 5ft 6 Length of need 12 months, 05/03/20 11:16:00 EST, Supply Start Date: 05/03/20 Status: Ordered gabapentin 300 mg oral capsule 300 mg, 1, capsule, By Mouth, 3 times a day, # 90 capsule, Refills 6, Tot. Refills 6, Maintenance, 04/22/20 13:38:00 EST, Route to Pharmacy Electronically, [facility] #[id number], Partial fill upon patient request, 168, cm, 04/22/20 12:49:00 EST,... Start Date: 04/22/20 Status: Ordered Heating Pad See Instructions, # 1 each, Maintenance, Large Heating Pad use as directed DX Lower Lumbar Spine Pain ICD10 M54.57 Length of need 12 months HT:5ft 6 WT 136 lbs, 05/03/20 10:15:00 EST, Supply Start Date: 05/03/20 Status: Ordered multivitamin Multiple Vitamins oral tablet 1 tablet, By Mouth, Daily, # 30 tablet, 5 Refills, Maintenance, 04/22/20 13:08:00 EST, Tablet, [facility] #[id number], 1 tablet By Mouth Daily,x30 days, 168, cm, 04/22/20 12:49:00 EST, Height, 63.5, kg, 08/07/19 9:46:00 EDT, Dry Weight Start Date: 04/22/20 Stop Date: 10/19/20 Status: Ordered Nutritional Supplements See Instructions, # 6 each, Refills 11, Tot. Refills 11, Maintenance, Max Protein Ensure 3 [place] 3 Vanilla use TID DX Pancreatitis Weight loss ICD 10 K85.9 R63.4 Weight: 137LBS Height: 5'6, 07/30/20 14:51:00 EST, Supply, 168, cm, 06/14... Start Date: 07/30/20 Status: Ordered omeprazole 40 mg oral enteric coated capsule 1 capsule = 40 mg, By Mouth, Daily, # 30 capsule, 10 Refills, Maintenance, 04/22/20 13:08:00 EST, EC Capsule, [facility] #[id number], 168, cm, 04/22/20 12:49:00 EST, Height, 63.5, kg, 08/07/19 9:46:00 EDT, Dry Weight Start Date: 04/22/20 Stop Date: 03/18/21 Status: Ordered OXcarbazepine 300 mg oral tablet 300 mg, 1, tablet, By Mouth, 2 times a day, 1 tablet in am 2 tablet at hs, Refills 0, Maintenance, 07/25/19 10:18:00 EST Start Date: 07/25/19 Status: Ordered Pedialyte oral solution drink bid, By Mouth, Daily, PRN as needed for dehydration, for 30 days, Drink 2 a day as needed dx dehydration, # 60 each, 1 Refills, Hard Stop 09/22/20 11:31:00 EDT, 07/24/20 11:31:00 EST, Partial fill upon patient request if the prescription is for... Start Date: 07/24/20 Stop Date: 09/22/20 Status: Ordered Pedialyte oral solution bid, By Mouth, Daily, PRN as needed for dehydration, Drink 2 bottles a day as needed dx dehydration, # 60 each, 0 Refills, Maintenance, 09/22/20 11:31:00 EDT, Partial fill upon patient request if theprescription is for a schedule II opioid drug. Start Date: 09/22/20 Stop Date: 10/22/20 Status: Ordered PORTABLE NEBULIZER WITH ALL SUPPLIES. [...] 8:18:00 EST, Aerosol, Route to Pharmacy Electronically, [id number], [facility] #[id number], 168, cm, 06/14/20 10:38:00... Start Date: 07/04/20 Status: Ordered tamsulosin 0.4 mg oral capsule 0.4 mg, 1, capsule, By Mouth, Daily, PER BELL HODGES, # 90 capsule, Refills 1, Tot. Refills 1, Maintenance, 04/29/20 16:06:00 EST, Route to Pharmacy Electronically, [facility] #[id number],Partial fill upon patient request, 168, cm, ... Start Date: 04/29/20 Status: Ordered tiZANidine 4 mg oral capsule 2 capsule = 8 mg, By Mouth, 3 times a day, 0 Refills, Maintenance, 10/13/19 10:32:00 EDT Start Date: 10/13/19 Status: Ordered traZODone 150 mg oral tablet 1 tablet, By Mouth, Daily at bedtime, PRN NEEDED FOR SLEEP, # 30 tablet, 5 Refills, Maintenance,04/22/20 13:08:00 EST, [id number], 168, cm, 04/22/20 12:49:00 EST, Height, 63.5, [...] 2018. 2Repeat EGD in 07/2020 for surveillance 27705; repeat 2019 4R shoulder 2018 5DrShabnam Choi (ENT surgeons) Social History Social History Type Response Smoking Status Current every day herve toney entered on: 12/17/15 Sex
--- OUTSIDE RECORDS SUMMARY | 2022-12-14 10:58 | XMS_ITS | Continuity of Care Document ---
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 [facility] #[id number] 2Location History: [place] 3Result Comment: [05/06/2017] [facility]:4949-0746-15 Medications aspirin 81 mg oral delayed release tablet 81 mg, 1, tablet, By Mouth, Daily, # 90 tablet, Refills 1, Tot. Refills 1, Maintenance, 01/09/21 14:52:00 EDT, Route to Pharmacy Electronically, [facility] #[id number], Partial fill upon patientrequest if the prescription is for a schedule II op... Start Date: 01/09/21 Status: Ordered atorvastatin 80 mg oral tablet 1 tablet = 80 mg, By Mouth, Daily at bedtime, # 90 tablet, 4 Refills, Maintenance, 01/09/21 14:44:00 EDT, Tablet, [facility] #[id number], Partial fill upon patient request if the prescription isfor a schedule II opioid drug., 167.64, cm, ... Start Date: 01/09/21 Stop Date: 04/04/22 Status: Ordered clopidogrel 75 mg oral tablet 75 mg, 1, tablet, By Mouth, Daily, # 30 tablet, Refills 11, Tot. Refills 11, Maintenance, 12/09/20 17:12:00 EDT, Route to Pharmacy Electronically, [facility] #[id number], Partial fill upon patient request if the prescription is for a schedule II... Start Date: 12/09/20 Status: Ordered EpiPen 2-Sameer 0.3 mg injectable kit = 0.3 mg, Intramuscular, Once, Must go to hospital if used, # 1 each, 1 Refills, Soft Stop, 01/09/21 14:45:00 EDT, [facility] #[id number], 167.64, cm, 01/09/21 14:27:00 EDT, Height, 63.64, [...] 01/13/21 9:59:00 EDT, Route to Pharmacy Electronically, [facility] #[id number], Partial fill upon patient request if the prescription is for a schedule II opi... Start Date: 01/13/21 Status: Ordered multivitamin Multiple Vitamins oral tablet 1 tablet, By Mouth, Daily, # 90 tablet, 1 Refills, Maintenance, 01/09/21 14:44:00 EDT, Tablet, [facility] #[id number], 1 tablet By Mouth Daily, 167.64, cm, 01/09/21 14:27:00 EDT, Height, 63.64, kg, 10/30/20 11:22:00 EDT, Dry Weight Start Date: 01/09/21 Status: Ordered Nutritional Supplements See Instructions, # 90 each, Refills 11, Tot. Refills 11, Maintenance, High Protein Ensure Use TID DX Pancreatitis, Weight Loss ICD 10 K85.90 R63.4 3 [place] 3 Vanilla Height 5'6 Weight 130lbs, 12/20/20 7:33:00 EDT, Supply Start Date: 12/20/20 Status: Ordered omeprazole 40 mg oral enteric coated capsule 1 capsule = 40 mg, By Mouth, Daily, # 30 capsule, 2 Refills, Maintenance, 01/14/21 14:05:00 EDT, ECCapsule, [facility] #[id number], 167.64, cm, 01/13/21 9:46:00 EDT, Height, 63.64, kg, 10/30/2110:22:00 EDT, Dry Weight Start Date: 01/14/21 Stop Date: 04/14/21 Status: Ordered PEG-3350 with Electrolytes (Eqv-GoLYTELY) oral powder for reconstitution See Instructions, 1 glass every 15-30 minutes until finished, # 4,000 mL, 0 Refills, Maintenance, 08/26/20 16:28:00 EDT, [facility] #[id number], Partial fill upon patient request if the prescription is for a schedule II opioid drug., 1 glass ever... Start Date: 08/26/20 Status: Ordered ProAir HFA 90 mcg/inh inhalation aerosol with adapter 2, puffs, Inhalation, Every 6 hours, PRN, # 8.5 Gm, Refills 5, Tot. Refills 5, Maintenance, 07/04/20 8:18:00 EST, Aerosol, Route to Pharmacy Electronically, [id number], [facility] #[id number], 168, cm, 06/14/20 10:38:00... Start Date: 07/04/20 [...] 10/16/20 8:15:00 EDT, Route to Pharmacy Electronically, [facility] #[id number], Partial fill upon patient request, 168, cm, [...] 90 tablet, 1 Refills, Maintenance,10/16/20 8:15:00 EDT, [facility] #[id number], 168, cm, 10/16/20 7:49:00 EDT, Height, 60, [...] 2018. 2Repeat EGD in 07/2020 for surveillance 49415; repeat 2019 4R shoulder 2018 5DrShabnam Choi (ENT surgeons) Vital Signs Most recent to oldest [Reference Range]: 1 Height 167.64 cm (01/09/21 2:27 PM) Weight 60.2 kg (01/09/21 2:27 PM) Oxygen Saturation [94-100 %] 97 % (01/09/21 2:27 PM) Pulse Rate [55-90 bpm] 58 bpm (01/09/21 2:27 PM) Body Mass Index [18.5-24.99] 21.42 (01/09/21 2:27 PM) Blood Pressure [90-138/55-84 mm Hg] 138/ 74mm Hg (01/09/21 2:27 PM) Temperature [96.8-100.4 DegF] 98.8 DegF (01/09/21 2:27 PM) Blood pressure sites Arm, left (01/09/21 2:27 PM) Temperature Route Oral (01/09/21 2:27 PM) Social History Social History Type Response Smoking Status Current every day herve toney entered on: 12/17/15 Sex
--- OUTSIDE RECORDS SUMMARY | 2022-12-14 10:58 | XMS_ITS | Continuity of Care Document ---
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 [facility] #[id number] 2Location History: [facility] 3Result Comment: [05/06/2017] [facility]:[id number] Medications aspirin 81 mg oral delayed release tablet 81 mg, 1, tablet, By Mouth, Daily, Refills 0, Maintenance, 10/07/20 14:42:00 EDT, Partial fill uponpatient request if the prescription is for a schedule II opioid drug. Start Date: 10/07/20 Status: Ordered Crestor 40 mg oral tablet 1 tablet = 40 mg, By Mouth, Daily, # 90 tablet, 3 Refills, Maintenance, 09/12/20 12:59:00 EDT, Tablet Start Date: 09/12/20 Stop Date: 09/07/21 Status: Ordered ENSURE/VANILLA ENSURE/VANILLA, See Instructions, # 6 pack/packet, Refills 11, Tot. Refills 11, Maintenance, EnsureMax Protein Formula TID DX Pancreatitis Weight Loss 3 [place] 1 Vanilla, 08/28/20 7:45:00 EDT, Compound Start [...] 04/22/20 13:38:00 EST, Route to Pharmacy Electronically, [facility] #[id number], Partial fill upon patient request, 168, cm, 04/22/20 12:49:00 EST,... Start Date: 04/22/20 Status: Ordered isosorbide mononitrate 30 mg oral tablet, extended release See Instructions, 1/2 tablet By Mouth Daily in AM 30 days, # 15 tablet, Refills 3, Tot. Refills 3, Maintenance, 10/07/20 15:26:00 EDT, Instructions Replace Required Details, Route to Pharmacy Electronically, [facility] #[id number], Partial fill u... Start Date: 10/07/20 Status: Ordered metoprolol 50 mg oral tablet, extended release 50 mg, 1, tablet, By Mouth, Daily, # 30 tablet, Refills 3, Tot. Refills 3, Maintenance, 10/16/20 13:19:00 EDT, Route to Pharmacy Electronically, [facility] #[id number], Partial fill upon patientrequest if the prescription is for a schedule II op... Start Date: 10/16/20 Stop Date: 02/13/21 Status: Ordered multivitamin Multiple Vitamins oral tablet 1 tablet, By Mouth, Daily, # 30 tablet, 5 Refills, Maintenance, 04/22/20 13:08:00 EST, Tablet, [facility] #[id number], 1 tablet By Mouth Daily,x30 days, 168, cm, 04/22/20 12:49:00 EST, Height, 63.5, kg, 08/07/19 9:46:00 EDT, Dry Weight Start Date: 04/22/20 Stop Date: 10/19/20 Status: Ordered omeprazole 40 mg oral enteric coated capsule 1 capsule = 40 mg, By Mouth, Daily, # 30 capsule, 10 Refills, Maintenance, 04/22/20 13:08:00 EST, EC Capsule, [facility] #[id number], 168, cm, 04/22/20 12:49:00 EST, Height, 63.5, [...] mL, 0 Refills, Maintenance, 08/26/20 16:28:00 EDT, [facility] #[id number], Partial fill upon patient request if the prescription is for a schedule II opioid drug., 1 glass ever... Start Date: 08/26/20 Status: Ordered ProAir HFA 90 mcg/inh inhalation aerosol with adapter 2, puffs, Inhalation, Every 6 hours, PRN, # 8.5 Gm, Refills 5, Tot. Refills 5, Maintenance, 07/04/20 8:18:00 EST, Aerosol, Route to Pharmacy Electronically, [id number], [facility] #[id number], 168, cm, 06/14/20 10:38:00... Start Date: 07/04/20 Status: Ordered tamsulosin 0.4 mg oral capsule 0.4 mg, 1, capsule, By Mouth, Daily, PER BELL HODGES, # 90 capsule, Refills 1, Tot. Refills 1, Maintenance, 10/16/20 8:15:00 EDT, Route to Pharmacy Electronically, [facility] #[id number], Partial fill upon patient request, 168, cm, 10/16/20... Start Date: 10/16/20 Status: Ordered Toprol XL 25 mg oral tablet, extended release 25 mg, XL Tablet, By Mouth, 10/16/20 13:17:00 EDT Start Date: 10/16/20 Stop Date: 10/16/20 Status: Completed traZODone 150 mg oral tablet 1 tablet, By Mouth, Daily at bedtime, PRN NEEDED FOR SLEEP, # 90 tablet, 1 Refills, Maintenance,10/16/20 8:15:00 EDT, [facility] #[id number], 168, cm, 10/16/20 7:49:00 EDT, Height, 60, kg, 10/16/20 7:49:00 EDT, Dry Weight Start Date: 10/16/20 Stop Date: 04/14/21 Status: Ordered Vicodin 5/500 Tablet By Mouth, Every 6 hours, 0 Refills, Maintenance, 04/20/19 14:26:28 EST, Partial fill upon patient request Start Date: 04/20/19 Status: Ordered Vitamin C By Mouth, Daily, 0 Refills, Maintenance, 10/07/20 14:41:00 EDT, Partial fill upon patient request if the prescription is for a schedule II opioid drug. Start Date: 10/07/20 Status: Ordered Problem List Condition Effective Dates [...] 2019. 2Repeat EGD in 07/2020 for surveillance 39692; repeat 2019 4R shoulder 2018 5Dr. Jimbo (ENT surgeons) Vital Signs Most recent to oldest [Reference Range]: 1 2 3 Height 168 cm (10/16/20 10:34 AM) 168 cm (10/16/20 7:55 AM) 168 cm (10/16/20 7:49 AM) Weight 60 kg (10/16/20 7:49 AM) 60 kg (10/16/20 7:38 AM) Oxygen Saturation [94-100 %] 99 % (10/16/20 10:34 AM) 100 % (10/16/20 7:49 AM) Pulse Rate [55-90 bpm] 60 bpm (10/16/20 1:51 PM) 64 bpm (10/16/20 10:34 AM) 60 bpm (10/16/20 7:49 AM) Body Mass Index [18.5-24.99] 21.26 (10/16/20 7:49 AM) Blood Pressure [90-138/55-84 mm Hg] 114/54mm Hg (10/16/20 1:51 PM) 141/77mm Hg *H* (10/16/20 10:34 AM) 134/65mm Hg (10/16/20 7:55 AM) Respiratory Rate [16-30 br/min] 18 br/min (10/16/20 10:34 AM) 11 br/min *L* (10/16/20 7:49 AM) 18 br/min (10/16/20 7:38 AM) Temperature [96.8-100.4 DegF] 97.9 DegF (10/16/20 10:34 AM) 98.2 DegF (10/16/20 7:49 AM) Mode of Delivery (Oxygen) Room air (10/16/20 10:34 AM) Room air (10/16/20 7:49 AM) Blood pressure sites Arm, left (10/16/20 10:34 AM) Arm, left (10/16/20 7:55 AM) Arm, right (10/16/20 7:49 AM) Temperature Route Oral (10/16/20 10:34 AM) Temporal (10/16/20 7:49 AM) Dry Weight 60 kg (10/16/20 7:49 AM) Social History Social History Type Response Smoking Status Current every day herve toney entered on: 12/17/15 Sex
--- OUTSIDE RECORDS SUMMARY | 2022-12-14 10:58 | XMS_ITS | Continuity of Care Document ---
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 Name Role Phone Casey Suarez MD Primary Care Physician Encounter [facility] Date(s): 12/10/20 - 01/09/21 [facility] Adult [address] [place] [address]- Allergies, Adverse Reactions, Alerts Substance Reaction Severity [...] Re corded influenza virus vaccine, inactivated 05/08/15 Wogn rded pneumococcal 23-valent vaccine 3 05/06/17 Given pneumococcal 23-valent vaccine 04/21/16 Recorded pneumococcal 23-valent vaccine 04/20/16 Recorded pneumococcal 23-valent vaccine 12/18/15 Given tetanus/diphtheria/pertussis, acel(Tdap) 04/29/16 Given tetanus-diphtheria toxoids (Td) 01/03/14 Recorded Not Given Vaccine Date Status Refusal Reason Influenza Virus Vaccine (oldterm) 04/21/19 Not Giv en Parent Or Guardian Refuses 1Result Comment: Pt tolerated well. [facility] #[id number] 2Location History: [facility] 3Result Comment: [05/06/2017] [facility]:7747-9778-55 Medications amiodarone 200 mg oral tablet 200 mg, 1, tablet, By Mouth, 2 times a day, # 60 tablet, Refills 0, Tot. Refills 0, Maintenance, 11/13/20 9:34:00 EDT, Route to Pharmacy Electronically, [facility], Partial fill upon patient request if the prescription is for a schedule... Start Date: 11/13/20 Status: Ordered aspirin 81 mg oral delayed release tablet 81 mg, 1, tablet, By Mouth, Daily, # 90 tablet, Refills 1, Tot. Refills 1, Maintenance, 01/09/21 14:52:00 EDT, Route to Pharmacy Electronically, [facility] #[id number], Partial fill upon patientrequest if the prescription is for a schedule II op... Start Date: 01/09/21 Status: Ordered atorvastatin 80 mg oral tablet 1 tablet = 80 mg, By Mouth, Daily at bedtime, # 90 tablet, 4 Refills, Maintenance, 01/09/21 14:44:00 EDT, Tablet, [facility] #[id number], Partial fill upon patient request if the prescription isfor a schedule II opioid drug., 167.64, cm, ... Start Date: 01/09/21 Stop Date: 04/04/22 Status: Ordered clopidogrel 75 mg oral tablet 75 mg, 1, tablet, By Mouth, Daily, # 30 tablet, Refills 11, Tot. Refills 11, Maintenance, 12/09/20 17:12:00 EDT, Route to Pharmacy Electronically, [facility] #[id number], Partial fill upon patient request if the prescription is for a schedule II... Start Date: 12/09/20 Status: Ordered EpiPen 2-Sameer 0.3 mg injectable kit = 0.3 mg, Intramuscular, Once, Must go to hospital if used, # 1 each, 1 Refills, Soft Stop, 01/09/21 14:45:00 EDT, [facility] #02225, 167.64, cm, 01/09/21 14:27:00 EDT, Height, 63.64, [...] 12/27/20 Status: Ordered metoprolol 50 mg oral tablet 25 mg, 0.5, tablet, By Mouth, 2 times a day, # 90 tablet, Refills 1, Tot. Refills 1, Maintenance, 01/09/21 14:42:00 EDT, Do Not Route, Metoprolol tartrate tablet Start Date: 01/09/21 Status: Ordered multivitamin Multiple Vitamins oral tablet 1 tablet, By Mouth, Daily, # 90 tablet, 1 Refills, Maintenance, 01/09/21 14:44:00 EDT, Tablet, [facility] #[id number], 1 tablet By Mouth Daily, 167.64, cm, 01/09/21 14:27:00 EDT, Height, 63.64, kg, 10/30/20 11:22:00 EDT, Dry Weight Start Date: 01/09/21 Status: Ordered Nutritional Supplements See Instructions, # 90 each, Refills 11, Tot. Refills 11, Maintenance, High Protein Ensure Use TID DX Pancreatitis, Weight Loss ICD 10 K85.90 R63.4 3 [place] 3 Vanilla Height 5'6 Weight 130lbs, 12/20/20 7:33:00 EDT, Supply Start Date: 12/20/20 Status: Ordered omeprazole 40 mg oral enteric coated capsule 1 capsule = 40 mg, By Mouth, Daily, # 30 capsule, 10 Refills, Maintenance, 04/22/20 13:08:00 EST, EC Capsule, [facility] #[id number], 168, cm, 04/22/20 12:49:00 EST, Height, 63.5, [...] mL, 0 Refills, Maintenance, 08/26/20 16:28:00 EDT, [facility] #[id number], Partial fill upon patient request if the prescription is for a schedule II opioid drug., 1 glass ever... Start Date: 08/26/20 Status: Ordered ProAir HFA 90 mcg/inh inhalation aerosol with adapter 2, puffs, Inhalation, Every 6 hours, PRN, # 8.5 Gm, Refills 5, Tot. Refills 5, Maintenance, 07/04/20 8:18:00 EST, Aerosol, Route to Pharmacy Electronically, [id number], [facility] #[id number], 168, cm, 06/14/20 10:38:00... Start Date: 07/04/20 [...] 10/16/20 8:15:00 EDT, Route to Pharmacy Electronically, [facility] #[id number], Partial fill upon patient request, 168, cm, [...] 90 tablet, 1 Refills, Maintenance,10/16/20 8:15:00 EDT, [facility] #35735, 168, cm, 10/16/20 7:49:00 EDT, Height, 60, [...] 2019. 2Repeat EGD in 07/2020 for surveillance 42949; repeat 2019 4R shoulder 2018 5DrShabnam Choi (ENT surgeons) Social History Social History Type Response Smoking Status Current every day herve toney entered on: 12/17/15 Sex
--- OUTSIDE RECORDS SUMMARY | 2022-12-14 10:58 | XMS_ITS | Continuity of Care Document ---
Author Name Unknown Organization [facility] [place] Address [address] [place] [address]- Care Team Providers Care Financial Services Professional Name Role Phone Casey Suarez MD Primary Care Physician Encounter [facility] [place] Date(s): 10/13/19 - 11/12/19 [facility] Adult [address] [place] [address]- [facility] Attending Physician: Admtr, Ar8 Admitting Physician: Admtr, [...] Guardian Refuses 1Result Comment: Pt tolerated well. [facility] #[id number] 2Location History: [place] 3Result Comment: [05/06/2017] [facility]:3170-5703-55 Medications albuterol 0.083% inhalation solution 3 mL [...] capsule, 3 Refills, Maintenance, 08/07/19 11:39:00 EDT, [facility] #[id number], 1 capsule By Mouth 3 times a [...] T PO QD, # 30 tablet, Refills 3, Tot. Refills 3, Maintenance, 05/04/19 14:51:08 EST, Route to Pharmacy Electronically, [id number], [facility] #[id number], 168, cm, 05/02/19 8:32:30... Start Date: 05/04/19 Stop Date: 09/01/19 Status: Ordered lisinopril 10 mg oral tablet See Instructions, TAKE 1 TABLET BY MOUTH EVERY DAY, # 30 tablet, Refills 5, Tot. Refills 5, Soft Stop, 08/28/19 10:33:00 EDT, Instructions Replace Required Details, Route to Pharmacy Electronically, [facility] #[id number], 168, cm, 08/07/19 9:46:... Start Date: 08/28/19 Status: Ordered multivitamin Multiple Vitamins oral tablet 1 tablet, By Mouth, Daily, # 30 tablet, 3 Refills, Maintenance, 05/04/19 14:55:25 EST, Tablet, 1 tablet By Mouth Daily,x30 days, 168, cm, 05/02/19 8:32:30 EST, Height, 57.4, kg, 04/04/19 7:51:38 EST,Dry Weight Start Date: 05/04/19 Stop Date: 09/01/19 Status: Ordered omeprazole 40 mg oral enteric coated capsule 1 capsule = 40 mg, By Mouth, Daily, # 30 capsule, 10 Refills, Maintenance, 08/14/19 8:52:00 EDT, ECCapsule, [facility] #46109, 168, cm, 08/07/19 9:46:00 EDT, Height, 63.5, [...] 16:26:00 EST, Aerosol, Route to Pharmacy Electronically, [id number], [facility] #[id number], 168, cm, 07/24/19 9:01:00... Start Date: 07/24/19 [...] FOR SLEEP, # 30 tablet, 5 Refills, Maintenance,06/27/19 16:32:00 EST, [facility] #[id number], 168, cm, 05/19/19 8:56:00 EST, Height, 57.4, kg, 04/04/19 7:51:00 EST, Dry Weight Start Date: 06/27/19 Status: Ordered Turmeric = 500 mg, By [...] 2019. 2Repeat EGD in 07/2020 for surveillance 59314; repeat 2019 4R shoulder [address] 5Dr. Jimbo (ENT surgeons) Social History Social History Type Response Smoking Status Current every day herve toney entered on: 12/17/15 Sex
--- OUTSIDE RECORDS SUMMARY | 2022-12-14 10:58 | XMS_ITS | Continuity of Care Document ---
Author Name Unknown Organization [facility] [place] Address [address] [place] [address]- Care Team Providers Care Reflow Operator Name Role Phone Casey Suarez MD Primary Care Physician [facility] Date[facility]): 05/03[facility]20 - 06/02/20 [facility] Adult [address] [place] [address]- Allergies, Adverse Reactions, Alerts Substance Reaction Severity [...] Guardian Refuses 1Result Comment: Pt tolerated well. [facility] #[id number] 2Location History: [place] 3Result Comment: [05/06/2017] [facility]:[id number] Medications albuterol 0.083% inhalation solution 3 mL = 2.5 mg, Inhalation, Every 6 hours, # 120 each, 2 Refills, Maintenance, 04/30/20 11:23:00 EST, Solution, [facility] #[id number], 168, cm, 04/30/20 11:04:00 EST, Height, 63.5, kg, 08/07/19 9:46:00 EDT, Dry Weight Start Date: 04/30/20 Status: Ordered albuterol 0.083% inhalation solution 3 mL = 2.5 mg, Inhalation, Every 6 hours, # 120 each, 2 Refills, Maintenance, 07/18/18 13:46:17 EST, Solution Start Date: 07/18/18 Status: Ordered aspirin 81 mg oral tablet 1 tablet = 81 mg, By Mouth, Daily, 0 Refills, Maintenance, 07/24/19 9:23:00 EST Start Date: 07/24/19 Status: Ordered Azithromycin 5 Day Dose Pack 250 mg oral tablet 1 pack/packet, By Mouth, Once, # 6 tablet, 0 Refills, Soft Stop, 05/03/20 16:00:00 EST, Tablet, [facility] #[id number], Partial fill upon patient request if the prescription is for a schedule IIopioid drug., 168, cm, 04/30/20 11:04:00 EST, Heigh... Start Date: 05/03/20 Status: Ordered Creon 36,000 units oral delayed release capsule 1 capsule, By Mouth, 3 times a day, with each meal, # 90 capsule, 3 Refills, Maintenance, 08/07/19 11:39:00 EDT, [facility] #[id number], 1 capsule By Mouth 3 times a day,Instr:with each meal, 168, cm, 08/07/19 9:46:00 EDT, Height, 63.5, kg, 08/06... Start Date: 08/07/19 Status: Ordered Crestor 40 mg oral tablet 1 tablet = 40 mg, By Mouth, Daily, # 90 tablet, 3 Refills, Maintenance, 04/22/20 13:08:00 EST, Tablet, [facility] #[id number], 168, cm, 04/22/20 12:49:00 EST, Height, 63.5, kg, 08/07/19 9:46:00 EDT, Dry Weight Start Date: 04/22/20 Stop Date: 04/17/21 Status: Ordered ENSURE/VANILLA ENSURE/VANILLA, See Instructions, # 270 each, Refills 11, Tot. Refills 11, Maintenance, VANILLA ENSURE TID DX PANCREATITIS AND WEIGHT LOSS, 04/22/20 13:12:00 EST, Compound Start Date: 04/22/20 Status: Ordered EpiPen 2-Sameer 0.3 mg injectable [...] 04/22/20 13:38:00 EST, Route to Pharmacy Electronically, [facility] #[id number], Partial fill upon patient request, 168, cm, [...] 5 Refills, Maintenance, 04/22/20 13:08:00 EST, Tablet, [facility] #[id number], 1 tablet By Mouth Daily,x30 days, 168, cm, 04/22/20 12:49:00 EST, Height, 63.5, kg, 08/07/19 9:46:00 EDT, Dry Weight Start Date: 04/22/20 Stop Date: 10/19/20 Status: Ordered omeprazole 40 mg oral enteric coated capsule 1 capsule = 40 mg, By Mouth, Daily, # 30 capsule, 10 Refills, Maintenance, 04/22/20 13:08:00 EST, EC Capsule, [facility] #[id number], 168, cm, 04/22/20 12:49:00 EST, Height, 63.5, [...] EDT, Compound Start Date: 03/21/18 Status: Ordered predniSONE 20 mg oral tablet See Instructions, 2 tablets daily for 5 days and then 1 tablet daily for 5 days, # 15 tablet, 0 Refills, Maintenance, 05/03/20 16:00:00 EST, [facility] #[id number], Partial fill upon patient request if the prescription is for a schedule II opioid... Start Date: 05/03/20 Status: Ordered ProAir HFA 90 mcg/inh inhalation aerosol with adapter 2, puffs, Inhalation, Every 6 hours, PRN, # 8.5 Gm, Refills 2, Tot. Refills 2, Maintenance, 04/22/20 13:08:00 EST, Aerosol, Route to Pharmacy Electronically, [id number], [facility] #[id number], 168, cm, 04/22/20 12:49:00... Start Date: 04/22/20 Status: Ordered tamsulosin 0.4 mg oral capsule 0.4 mg, 1, capsule, By Mouth, Daily, PER BELL HODGES, # 90 capsule, Refills 1, Tot. Refills 1, Maintenance, 04/29/20 16:06:00 EST, Route to Pharmacy Electronically, [facility] #[id number],Partial fill upon patient request, 168, cm, ... Start Date: 04/29/20 Status: Ordered tiZANidine 4 mg oral capsule 2 capsule = 8 mg, By Mouth, 3 times a day, 0 Refills, Maintenance, 10/13/19 10:32:00 EDT Start Date: 10/13/19 Status: Ordered traZODone 150 mg oral tablet 1 tablet, By Mouth, Daily at bedtime, PRN NEEDED FOR SLEEP, # 30 tablet, 5 Refills, Maintenance,04/22/20 13:08:00 EST, [facility] #[id number], 168, cm, 04/22/20 12:49:00 EST, Height, 63.5, kg, 08/07/19 9:46:00 EDT, Dry Weight Start Date: 04/22/20 Status: Ordered Turmeric = 500 mg, By [...] 2019. 2Repeat EGD in 07/2020 for surveillance 48701; repeat 2019 4R shoulder 2017 5Dr. Jimbo (ENT surgeons) Social History Social History Type Response Smoking Status Current every day herve toney entered on: 12/17/15 Sex
--- OUTSIDE RECORDS SUMMARY | 2022-12-14 10:58 | XMS_ITS | Continuity of Care Document ---
Author Name Unknown Organization [facility] [place] Address [address] [place] [address]- Care Team Providers Care Health And Wellness Director Name Role Phone Casey Suarez MD Primary Care Physician [facility]): 06/26/20 - 07/26/20 [facility] Adult [address] [place] [address]- Allergies, Adverse Reactions, Alerts Substance Reaction Severity [...] Guardian Refuses 1Result Comment: Pt tolerated well. [facility] #[id number] 2Location History: [place] 3Result Comment: [05/06/2017] [facility]:[id number] Medications albuterol 0.083% inhalation solution 3 mL = 2.5 mg, Inhalation, Every 6 hours, # 120 each, 2 Refills, Maintenance, 04/30/20 11:23:00 EST, Solution, [email or web address] #[id number], 168, cm, 04/30/20 11:04:00 EST, Height, 63.5, kg, 08/07/19 9:46:00 EDT, Dry Weight Start Date: 04/30/20 Status: Ordered Creon 36,000 units oral delayed release capsule 1 capsule, By Mouth, 3 times a day, with each meal, # 90 capsule, 3 Refills, Maintenance, 08/07/19 11:39:00 EDT, [facility] #[id number], 1 capsule By Mouth 3 times a day,Instr:with each meal, 168, cm, 08/07/19 9:46:00 EDT, Height, 63.5, kg, 08/06... Start Date: 08/07/19 Status: Ordered ENSURE/VANILLA ENSURE/VANILLA, See Instructions, # 6 pack/packet, Refills 11, Tot. Refills 11, Maintenance, EnsureMax Protein Formula TID DX Pancreatitis Weight Loss 3 [place] 1 Vanilla, 06/25/20 9:20:00 EST, Compound Start [...] 04/22/20 13:38:00 EST, Route to Pharmacy Electronically, [facility] #[id number], Partial fill upon patient request, 168, cm, [...] 5 Refills, Maintenance, 04/22/20 13:08:00 EST, Tablet, [facility] #[id number], 1 tablet By Mouth Daily,x30 days, 168, cm, 04/22/20 12:49:00 EST, Height, 63.5, kg, 08/07/19 9:46:00 EDT, Dry Weight Start Date: 04/22/20 Stop Date: 10/19/20 Status: Ordered omeprazole 40 mg oral enteric coated capsule 1 capsule = 40 mg, By Mouth, Daily, # 30 capsule, 10 Refills, Maintenance, 04/22/20 13:08:00 EST, EC Capsule, [facility] #[id number], 168, cm, 04/22/20 12:49:00 EST, Height, 63.5, [...] 8:18:00 EST, Aerosol, Route to Pharmacy Electronically, [id number], [facility] #[id number], 168, cm, 06/14/20 10:38:00... Start Date: 07/04/20 Status: Ordered tamsulosin 0.4 mg oral capsule 0.4 mg, 1, capsule, By Mouth, Daily, PER BELL HODGES, # 90 capsule, Refills 1, Tot. Refills 1, Maintenance, 04/29/20 16:06:00 EST, Route to Pharmacy Electronically, [facility] #[id number],Partial fill upon patient request, 168, cm, ... Start Date: 04/29/20 Status: Ordered tiZANidine 4 mg oral capsule 2 capsule = 8 mg, By Mouth, 3 times a day, 0 Refills, Maintenance, 10/13/19 10:32:00 EDT Start Date: 10/13/19 Status: Ordered traZODone 150 mg oral tablet 1 tablet, By Mouth, Daily at bedtime, PRN NEEDED FOR SLEEP, # 30 tablet, 5 Refills, Maintenance,04/22/20 13:08:00 EST, [facility] #[id number], 168, cm, 04/22/20 12:49:00 EST, Height, 63.5, [...] 2019. 2Repeat EGD in 07/2020 for surveillance 87254; repeat 2019 4R shoulder 2018 5DrShabnam Choi (ENT surgeons) Social History Social History Type Response Smoking Status Current every day herve toney entered on: 12/17/15 Sex
--- OUTSIDE RECORDS SUMMARY | 2022-12-14 10:58 | XMS_ITS | Continuity of Care Document ---
Author Name Unknown Organization [facility] Address [address] [place] [address]- Care Team Providers Care Recovery Agent Name Role Phone Casey Suarez MD Primary Care Physician [facility] Date[facility]): 03/18/22 - 04/17/22 [facility] [address] [place] [id number]- [place] Allergies, Adverse Reactions, Alerts Substance Reaction Severity Status Bee Stings anaphylactic Active amoxicillin heart racing Active acetaminophen-codeine ANAPHYLAXSIS Active Augmentin swelling of throat, diff breath, rash Active Immunizations Given and Recorded Vaccine Date Status Refusal Reason influenza virus vaccine, inactivated 1 03/13/22 Gi nini influenza virus vaccine, inactivated 2 03/20/21 Gi nini influenza virus vaccine, inactivated 04/22/20 Give n influenza virus vaccine, inactivated 3 05/26/19 Gi nini influenza virus vaccine, inactivated 03/21/18 Give n influenza virus vaccine, inactivated 03/06/17 Wong rded influenza virus vaccine, inactivated 4 03/10/16 Re corded influenza virus vaccine, inactivated 05/08/15 Wong rded SARS-CoV-2 (COVID-19) mRNA BNT-162b2 vac 05/12/21 Given SARS-CoV-2 (COVID-19) mRNA BNT-162b2 vac 09/21/20 Recorded SARS-CoV-2 (COVID-19) mRNA BNT-162b2 vac 08/29/20 Recorded pneumococcal 23-valent vaccine 5 05/06/17 Given pneumococcal 23-valent vaccine 04/21/16 Recorded pneumococcal 23-valent vaccine 04/20/16 Recorded pneumococcal 23-valent vaccine 12/18/15 Given tetanus/diphtheria/pertussis, acel(Tdap) 04/29/16 Given tetanus-diphtheria toxoids (Td) 01/03/14 Recorded Not Given Vaccine Date Status Refusal Reason Influenza Virus Vaccine (oldterm) 04/21/19 Not Giv en Parent Or Guardian Refuses 1Result Comment: [facility]# [id number] 2Result Comment: [facility]# [address] [id number] 3Result Comment: Pt tolerated well. [facility] #[id number] 4Location History: [facility] 5Result Comment: [05/06/2017] [facility]:[id number] Medications aspirin 81 mg oral delayed release tablet 1 tablet, By Mouth, Daily, # 90 tablet, 0 Refills, Maintenance, 04/07/22 15:36:00 EST, [facility] #[id number], 167.6, cm, 03/19/22 9:24:00 EDT, Height, 63.6, kg, 09/22/21 9:54:00 EDT, Dry Weight Start Date: 04/07/22 Status: Ordered atorvastatin 80 mg oral tablet 1 tablet, By Mouth, Daily at bedtime, # 90 tablet, 1 Refills, Maintenance, 03/06/22 12:15:00 EDT, [facility] #[id number], 167.6, cm, 01/08/22 8:27:00 EDT, Height, 63.6, kg, 09/22/21 9:54:00 EDT,Dry Weight Start Date: 03/06/22 Status: Ordered EpiPen 2-Sameer 0.3 mg injectable kit = 0.3 mg, Intramuscular, Once, Must go to hospital if used, # 1 each, 1 Refills, Soft Stop, 01/09/21 14:45:00 EDT, [facility] #[id number], 167.64, cm, 01/09/21 14:27:00 EDT, Height, 63.64, kg, 10/30/20 11:22:00 EDT, Dry Weight Start Date: 01/09/21 Status: Ordered gabapentin 300 mg oral capsule 2, capsule, By Mouth, 2 times a day, # 120 capsule, Refills 0, Maintenance, 04/01/22 14:31:00 EDT, Route to Pharmacy Electronically, [facility] #[id number], 167.6, cm, 03/19/22 9:24:00 EDT, Height, 63.6, kg, 09/22/21 9:54:00 EDT, Dry Weight Start Date: 04/01/22 Status: Ordered Large Blood Pressure Cuff Large Blood Pressure Cuff, See Instructions, # 1 each, Refills 0, Tot. Refills 0, Maintenance, Large BP Cuff use as directed dx hypertension ICD 10 I11.9 Length of need Lifetime Weight 130lbs height 5'6, 12/27/20 12:39:00 EDT, Supply Start Date: 12/27/20 Status: Ordered metoprolol 25 mg oral tablet 12.5 mg, 0.5, tablet, By Mouth, 2 times a day, # 60 tablet, Refills 0, Tot. Refills 0, Maintenance,03/19/22 10:20:00 EDT, Do Not Route, Partial fill upon patient request if the prescription is for aschedule II opioid drug. Start Date: 03/19/22 Status: Ordered Nutritional Supplements See Instructions, # 90 each, Refills 11, Tot. Refills 11, Maintenance, High Protein Ensure Use TID DX Pancreatitis, Weight Loss ICD 10 K85.90 R63.4 3 [place] 3 Vanilla Height 5'6 Weight 130lbs, 12/20/20 7:33:00 EDT, Supply Start Date: 12/20/20 Status: Ordered omeprazole 40 mg oral enteric coated capsule 1 capsule, By Mouth, Daily, # 30 capsule, 2 Refills, 03/05/22 12:01:00 EDT, [facility] #[id number], 167.6, cm, 01/08/22 8:27:00 EDT, Height, 63.6, kg, 09/22/21 9:54:00 EDT, Dry Weight Start Date: 03/05/22 Status: Ordered PEG-3350 with Electrolytes (Eqv-GoLYTELY) oral powder for reconstitution See Instructions, 1 glass every 15-30 minutes until finished, # 4,000 mL, 0 Refills, Maintenance, 08/26/20 16:28:00 EDT, [facility] #[id number], Partial fill upon patient request if the prescription is for a schedule II opioid drug., 1 glass ever... Start Date: 08/26/20 Status: Ordered ProAir HFA 90 mcg/inh inhalation aerosol with adapter 2, puffs, Inhalation, Every 6 hours, PRN, # 8.5 Gm, Refills 5, Tot. Refills 5, Maintenance, 07/04/20 8:18:00 EST, Aerosol, Route to Pharmacy Electronically, [id number], [facility] #[id number], 168, cm, 06/14/20 10:38:00... Start Date: 07/04/20 [...] Mouth, Daily, # 90 capsule, Refills 1, Maintenance, 04/07/22 13:27:00 EST, Route to Pharmacy Electronically, [facility] #[id number], 167.6, cm, 03/19/22 9:24:00 EDT, Height, 63.6,kg, 09/22/21 9:54:00 EDT, Dry Weight Start Date: 04/07/22 Status: Ordered teds stockings teds stockings, See [...] PRN NEEDED FOR SLEEP, # 90 tablet, 0 Refills, Maintenance,04/07/22 15:37:00 EST, [facility] #[id number], 167.6, cm, 03/19/22 9:24:00 EDT, Height, 63.6, kg, 09/22/21 9:54:00 EDT, Dry Weight Start Date: 04/07/22 Status: Ordered Problem List Condition Confirmation Course Effective Dates Status Health Status Informant Abscess of buttock Confirmed Active Necrotizing pancreatitis Confirmed Active Anxiety Confirmed Active Atherosclerosis 1 Confirmed Active 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 2 Confirmed 02/02/17 Active Chronic anemia Confirmed Active Chronic back pain Confirmed Active Chronic obstructive pulmonary disease (COPD) Confirmed Active Brain concussion Confirmed Active Difficulty sleeping Confirmed Active Right rotator cuff tear Confirmed Active History of DVT (deep vein thrombosis) Confirmed Active Right hand pain Confirmed Active History of alcohol abuse Confirmed Active History of colonoscopy 3 Confirmed Active History of coronary artery bypass graft Confirmed Active History of shoulder surgery 4 Confirmed Active Hypercholesterolemia Confirmed Active HTN (hypertension) Confirmed Active Cognitive impairment Confirmed Active Infected sebaceous cyst Confirmed Active 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 2Repeat EGD in 07/2020 for surveillance 40527; repeat 2019 4R shoulder 2018 5Dr. Jimbo (ENT surgeons) Social History Social History Type Response Smoking Status 10 or more cigarette s (1/2 pack or more)/day in last 30 days entered on: 03/13/22 Sex Patient Care team information Care Team Personnel Name: April Landrum RN Position: [facility] RN Member Role: Primary Care Nurse Name: Talib Jensen RN Position: [facility] RN Member Role: Primary Care Nurse Name: Casey Suarez MD Position: [facility] Primary Care Physician Member Role: PCP Address: Address: [address] [place] [address]- [place] Name: Frida Urban RN Position: [facility] RN Member Role: Primary Care Nurse Name: Betty Rodriguez RN Position: [facility] RN Member Role: Primary Care Nurse Name: Damon Elaine RN Position: [facility] SN RN Member Role: Primary Care Nurse Name: Neelima Manrique RN Position: [facility] RN Member Role: Primary Care Nurse Name: Maddison Lindquist RN Position: [facility] SN RN Member Role: Primary Care Nurse Name: Mahesh Castillo RN Position: [facility] RN Member Role: Primary Care Nurse Name: Desiree Caballero RN Position: [facility] [employer] Member Role: Primary Care Nurse Name: Melvina Palacios RN Position: [facility] RN Member Role: Primary Care Nurse Name: Diandra Méndez RN Position: [facility] RN Member Role: Primary Care Nurse Care Team Related Persons Name: ORACIO LAYLA Address: [address] [address]
--- OUTSIDE RECORDS SUMMARY | 2022-12-14 10:58 | XMS_ITS | Continuity of Care Document ---
Author Name Unknown Organization [facility] Address [address] [place] [address]- Care Team Providers Care Wash Worker Name Role Phone Casey Suarez MD Primary Care Physician [facility]): 01/07[facility]21 - 02/06/21 [facility] [address] [place] [address]- Allergies, Adverse Reactions, Alerts Substance Reaction Severity [...] Guardian Refuses 1Result Comment: Pt tolerated well. [facility] #[id number] 2Location History: [place] 3Result Comment: [05/06/2017] [facility]:4944-2447-55 Medications aspirin 81 mg oral delayed release tablet 81 mg, 1, tablet, By Mouth, Daily, # 90 tablet, Refills 1, Tot. Refills 1, Maintenance, 01/09/21 14:52:00 EDT, Route to Pharmacy Electronically, [facility] #[id number], Partial fill upon patientrequest if the prescription is for a schedule II op... Start Date: 01/09/21 Status: Ordered atorvastatin 80 mg oral tablet 1 tablet = 80 mg, By Mouth, Daily at bedtime, # 90 tablet, 4 Refills, Maintenance, 01/09/21 14:44:00 EDT, Tablet, [facility] #[id number], Partial fill upon patient request if the prescription isfor a schedule II opioid drug., 167.64, cm, ... Start Date: 01/09/21 Stop Date: 04/04/22 Status: Ordered clopidogrel 75 mg oral tablet 75 mg, 1, tablet, By Mouth, Daily, # 30 tablet, Refills 11, Tot. Refills 11, Maintenance, 12/09/20 17:12:00 EDT, Route to Pharmacy Electronically, [facility] #[id number], Partial fill upon patient request if the prescription is for a schedule II... Start Date: 12/09/20 Status: Ordered EpiPen 2-Sameer 0.3 mg injectable kit = 0.3 mg, Intramuscular, Once, Must go to hospital if used, # 1 each, 1 Refills, Soft Stop, 01/09/21 14:45:00 EDT, [facility] #[id number], 167.64, cm, 01/09/21 14:27:00 EDT, Height, 63.64, [...] 01/13/21 9:59:00 EDT, Route to Pharmacy Electronically, [facility] #[id number], Partial fill upon patient request if the prescription is for a schedule II opi... Start Date: 01/13/21 Status: Ordered multivitamin Multiple Vitamins oral tablet 1 tablet, By Mouth, Daily, # 90 tablet, 1 Refills, Maintenance, 01/09/21 14:44:00 EDT, Tablet, [facility] #[id number], 1 tablet By Mouth Daily, 167.64, cm, 01/09/21 14:27:00 EDT, Height, 63.64, kg, 10/30/20 11:22:00 EDT, Dry Weight Start Date: 01/09/21 Status: Ordered Nutritional Supplements See Instructions, # 90 each, Refills 11, Tot. Refills 11, Maintenance, High Protein Ensure Use TID DX Pancreatitis, Weight Loss ICD 10 K85.90 R63.4 3 [place] 3 Vanilla Height 5'6 Weight 130lbs, 12/20/20 7:33:00 EDT, Supply Start Date: 12/20/20 Status: Ordered omeprazole 40 mg oral enteric coated capsule 1 capsule = 40 mg, By Mouth, Daily, # 30 capsule, 2 Refills, Maintenance, 01/14/21 14:05:00 EDT, ECCapsule, [facility] #[id number], 167.64, cm, 01/13/21 9:46:00 EDT, Height, 63.64, kg, 10/30/2110:22:00 EDT, Dry Weight Start Date: 01/14/21 Stop Date: 04/14/21 Status: Ordered PEG-3350 with Electrolytes (Eqv-GoLYTELY) oral powder for reconstitution See Instructions, 1 glass every 15-30 minutes until finished, # 4,000 mL, 0 Refills, Maintenance, 08/26/20 16:28:00 EDT, [facility] #[id number], Partial fill upon patient request if the prescription is for a schedule II opioid drug., 1 glass ever... Start Date: 08/26/20 Status: Ordered ProAir HFA 90 mcg/inh inhalation aerosol with adapter 2, puffs, Inhalation, Every 6 hours, PRN, # 8.5 Gm, Refills 5, Tot. Refills 5, Maintenance, 07/04/20 8:18:00 EST, Aerosol, Route to Pharmacy Electronically, [id number], [facility] #[id number], 168, cm, 06/14/20 10:38:00... Start Date: 07/04/20 [...] 10/16/20 8:15:00 EDT, Route to Pharmacy Electronically, [facility] #[id number], Partial fill upon patient request, 168, cm, [...] 90 tablet, 1 Refills, Maintenance,10/16/20 8:15:00 EDT, [facility] #[id number], 168, cm, 10/16/20 7:49:00 EDT, Height, 60, [...] 2019. 2Repeat EGD in 07/2020 for surveillance 44886; repeat 2019 4R shoulder 2018 5DrShabnam Choi (ENT surgeons) Social History Social History Type Response Smoking Status Current every day herve toney entered on: 12/17/15 Sex
--- OUTSIDE RECORDS SUMMARY | 2022-12-14 10:58 | XMS_ITS | Continuity of Care Document ---
Author Name Unknown Organization [facility], [place], [facility] [place] Address [address] [place] [address]- Care Team Providers Care Logging Specialist Name Role Phone Casey Suarez MD Primary Care Physician [facility] - 01/26/21 [facility], [place] Adult [address] [place] [address]- Allergies, Adverse Reactions, Alerts Substance Reaction Severity [...] Guardian Refuses 1Result Comment: Pt tolerated well. [facility] #[id number] 2Location History: [place] 3Result Comment: [05/06/2017] [facility]:[id number] Medications aspirin 81 mg oral delayed release tablet 81 mg, 1, tablet, By Mouth, Daily, # 90 tablet, Refills 1, Tot. Refills 1, Maintenance, 01/09/21 14:52:00 EDT, Route to Pharmacy Electronically, [facility] #[id number], Partial fill upon patientrequest if the prescription is for a schedule II op... Start Date: 01/09/21 Status: Ordered atorvastatin 80 mg oral tablet 1 tablet = 80 mg, By Mouth, Daily at bedtime, # 90 tablet, 4 Refills, Maintenance, 01/09/21 14:44:00 EDT, Tablet, [facility] #[id number], Partial fill upon patient request if the prescription isfor a schedule II opioid drug., 167.64, cm, ... Start Date: 01/09/21 Stop Date: 04/04/22 Status: Ordered clopidogrel 75 mg oral tablet 75 mg, 1, tablet, By Mouth, Daily, # 30 tablet, Refills 11, Tot. Refills 11, Maintenance, 12/09/20 17:12:00 EDT, Route to Pharmacy Electronically, [facility] #[id number], Partial fill upon patient request if the prescription is for a schedule II... Start Date: 12/09/20 Status: Ordered EpiPen 2-Sameer 0.3 mg injectable kit = 0.3 mg, Intramuscular, Once, Must go to hospital if used, # 1 each, 1 Refills, Soft Stop, 01/09/21 14:45:00 EDT, [facility] #[id number], 167.64, cm, 01/09/21 14:27:00 EDT, Height, 63.64, [...] 01/13/21 9:59:00 EDT, Route to Pharmacy Electronically, [facility] #[id number], Partial fill upon patient request if the prescription is for a schedule II opi... Start Date: 01/13/21 Status: Ordered multivitamin Multiple Vitamins oral tablet 1 tablet, By Mouth, Daily, # 90 tablet, 1 Refills, Maintenance, 01/09/21 14:44:00 EDT, Tablet, [facility] #[id number], 1 tablet By Mouth Daily, 167.64, cm, 01/09/21 14:27:00 EDT, Height, 63.64, kg, 10/30/20 11:22:00 EDT, Dry Weight Start Date: 01/09/21 Status: Ordered Nutritional Supplements See Instructions, # 90 each, Refills 11, Tot. Refills 11, Maintenance, High Protein Ensure Use TID DX Pancreatitis, Weight Loss ICD 10 K85.90 R63.4 3 [place] 3 Vanilla Height 5'6 Weight 130lbs, 12/20/20 7:33:00 EDT, Supply Start Date: 12/20/20 Status: Ordered omeprazole 40 mg oral enteric coated capsule 1 capsule = 40 mg, By Mouth, Daily, # 30 capsule, 2 Refills, Maintenance, 01/14/21 14:05:00 EDT, ECCapsule, [facility] #[id number], 167.64, cm, 01/13/21 9:46:00 EDT, Height, 63.64, kg, 10/30/2110:22:00 EDT, Dry Weight Start Date: 01/14/21 Stop Date: 04/14/21 Status: Ordered PEG-3350 with Electrolytes (Eqv-GoLYTELY) oral powder for reconstitution See Instructions, 1 glass every 15-30 minutes until finished, # 4,000 mL, 0 Refills, Maintenance, 08/26/20 16:28:00 EDT, [facility] #[id number], Partial fill upon patient request if the prescription is for a schedule II opioid drug., 1 glass ever... Start Date: 08/26/20 Status: Ordered ProAir HFA 90 mcg/inh inhalation aerosol with adapter 2, puffs, Inhalation, Every 6 hours, PRN, # 8.5 Gm, Refills 5, Tot. Refills 5, Maintenance, 07/04/20 8:18:00 EST, Aerosol, Route to Pharmacy Electronically, [id number], [facility] #[id number], 168, cm, 06/14/20 10:38:00... Start Date: 07/04/20 [...] 10/16/20 8:15:00 EDT, Route to Pharmacy Electronically, [facility] #[id number], Partial fill upon patient request, 168, cm, [...] 90 tablet, 1 Refills, Maintenance,10/16/20 8:15:00 EDT, [facility] #[id number], 168, cm, 10/16/20 7:49:00 EDT, Height, 60, [...] 2019. 2Repeat EGD in 07/2020 for surveillance 53709; repeat 2019 4R shoulder 2017 5Dr. Jimbo (ENT surgeons) Social History Social History Type Response Smoking Status Current every day herve toney entered on: 12/17/15 Sex
--- OUTSIDE RECORDS SUMMARY | 2022-12-14 10:58 | XMS_ITS | Continuity of Care Document ---
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 [facility] #[id number] 3Location History: [place] 4Result Comment: [05/06/2017] [facility]:[id number] Medications aspirin 81 mg oral delayed release tablet 1 tablet, By Mouth, Daily, # 90 tablet, 0 Refills, [facility] #[id number], 167.6, cm, :54:00 EDT, Height, 63.6, kg, 09/22/21 9:54:00 EDT, Dry Weight Start Date: 10/10/21 Status: Ordered atorvastatin 80 mg oral tablet 1 tablet = 80 mg, By Mouth, Daily at bedtime, # 90 tablet, 3 Refills, Maintenance, 08/14/21 15:28:00 EDT, Tablet, [facility] #[id number], 167.64, cm, 08/14/21 15:12:00 EDT, Height, 63.64, kg, 10/30/20 11:22:00 EDT, Dry Weight Start Date: 08/14/21 Stop Date: 08/09/22 Status: Ordered clopidogrel 75 mg oral tablet 75 mg, 1, tablet, By Mouth, Daily, # 30 tablet, Refills 11, Tot. Refills 11, Maintenance, 12/09/20 17:12:00 EDT, Route to Pharmacy Electronically, [facility] #[id number], Partial fill upon patient request if the prescription is for a schedule II... Start Date: 12/09/20 Status: Ordered EpiPen 2-Sameer 0.3 mg injectable kit = 0.3 mg, Intramuscular, Once, Must go to hospital if used, # 1 each, 1 Refills, Soft Stop, 01/09/21 14:45:00 EDT, [facility] #[id number], 167.64, cm, 01/09/21 14:27:00 EDT, Height, 63.64, [...] Mouth, Daily, # 90 tablet, 1 Refills, [facility] #[id number], 167.6, cm, 229:54:00 EDT, Height, 63.6, kg, 09/22/21 9:54:00 EDT, Dry Weight Start Date: 10/06/21 Status: Ordered multivitamin Multiple Vitamins oral tablet 1 tablet, By Mouth, Daily, # 90 tablet, 1 Refills, [facility] #04912, 90, TAKE 1 TABLET BY MOUTH DAILY, 167.64, cm, 04/21/21 13:13:00 EST, Height, 63.64, kg, 10/30/20 11:22:00 EDT, Dry Weight Start Date: 07/10/21 Status: Ordered Nutritional Supplements See Instructions, # 90 each, Refills 11, Tot. Refills 11, Maintenance, High Protein Ensure Use TID DX Pancreatitis, Weight Loss ICD 10 K85.90 R63.4 3 [place] 3 Vanilla Height 5'6 Weight 130lbs, 12/20/20 7:33:00 EDT, Supply Start Date: 12/20/20 Status: Ordered omeprazole 40 mg oral enteric coated capsule 1 capsule = 40 mg, By Mouth, Daily, # 30 capsule, 2 Refills, Maintenance, 09/10/21 14:25:00 EDT, [facility] #97612, 167.64, cm, 09/01/21 8:31:00 EDT, Height, 63.64, kg, 10/30/2110:22:00 EDT, Dry Weight Start Date: 09/10/21 Stop Date: 12/09/21 Status: Ordered Paxlovid 150 mg-100 mg oral tablet See Instructions, follow package instructions, not renally impaired, # 30 tablet, 0 Refills, Maintenance, 09/23/21 15:45:00 EDT, [facility] #[id number], Partial fill upon patient request if the prescription is for a schedule II opioid drug., foll... Start Date: 09/23/21 Status: Ordered PEG-3350 with Electrolytes (Eqv-GoLYTELY) oral powder for reconstitution See Instructions, 1 glass every 15-30 minutes until finished, # 4,000 mL, 0 Refills, Maintenance, 08/26/20 16:28:00 EDT, [facility] #[id number], Partial fill upon patient request if the prescription is for a schedule II opioid drug., 1 glass ever... Start Date: 08/26/20 Status: Ordered ProAir HFA 90 mcg/inh inhalation aerosol with adapter 2, puffs, Inhalation, Every 6 hours, PRN, # 8.5 Gm, Refills 5, Tot. Refills 5, Maintenance, 07/04/20 8:18:00 EST, Aerosol, Route to Pharmacy Electronically, [id number], [facility] #[id number], 168, cm, 06/14/20 10:38:00... Start Date: 07/04/20 [...] capsule, Refills 1, Route to Pharmacy Electronically, [facility] #[id number], 167.6, cm, 09/22/21 9:54:00 EDT, Height, 63.6, [...] FOR SLEEP, # 90 tablet, 1 Refills, [facility] #25571, 167.6, cm, 09/22/21 9:54:00 EDT, Height, 63.6, [...] 2018. 2Repeat EGD in 07/2020 for surveillance 09867; repeat 2019 4R shoulder 2018 5Dr. Jimbo (ENT surgeons) Social History Social History Type Response Smoking Status Current every day herve tonye entered on: 12/17/15 Sex
--- OUTSIDE RECORDS SUMMARY | 2022-12-14 10:58 | XMS_ITS | Continuity of Care Document ---
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 [facility] #[id number] 2Location History: [place] 3Result Comment: [05/06/2017] [facility]:[id number] Medications albuterol 0.083% inhalation solution 3 mL = 2.5 mg, Inhalation, Every 6 hours, # 120 each, 2 Refills, Maintenance, 07/18/18 13:46:17 EST, Solution Start Date: 07/18/18 Status: Ordered aspirin 81 mg oral tablet 1 tablet = 81 mg, By Mouth, Daily, 0 Refills, Maintenance, 07/24/19 9:23:00 EST Start Date: 07/24/19 Status: Ordered ENSURE/VANILLA ENSURE/VANILLA, See Instructions, # [...] 05/04/19 14:51:08 EST, Route to Pharmacy Electronically, [id number], [facility] #[id number], 168, cm, 05/02/19 8:32:30... Start Date: 05/04/19 Stop Date: 09/01/19 Status: Ordered lisinopril 10 mg oral tablet See Instructions, TAKE 1 TABLET BY MOUTH EVERY DAY, # 30 tablet, Refills 2, Tot. Refills 2, Soft Stop, 05/22/19 16:32:00 EST, Instructions Replace Required Details, Route to Pharmacy Electronically, [facility] #[id number], 168, cm, 05/19/19 8:56:... Start Date: 05/22/19 Status: Ordered multivitamin Multiple Vitamins oral tablet 1 tablet, By Mouth, Daily, # 30 tablet, 3 Refills, Maintenance, 05/04/19 14:55:25 EST, Tablet, 1 tablet By Mouth Daily,x30 days, 168, cm, 05/02/19 8:32:30 EST, Height, 57.4, kg, 04/04/19 7:51:38 EST,Dry Weight Start Date: 05/04/19 Stop Date: 09/01/19 Status: Ordered OXcarbazepine 300 mg oral tablet [...] 16:26:00 EST, Aerosol, Route to Pharmacy Electronically, [id number], [facility] #[id number], 168, cm, 07/24/19 9:01:00... Start Date: 07/24/19 Status: Ordered tamsulosin 0.4 mg oral capsule 0.4 mg, 1, capsule, By Mouth, Daily, Refills 0, Maintenance, 07/25/19 10:23:00 EST Start Date: 07/25/19 Status: Ordered traZODone 150 mg oral tablet 1 tablet, By Mouth, Daily at bedtime, PRN NEEDED FOR SLEEP, # 30 tablet, 5 Refills, Maintenance,06/27/19 16:32:00 EST, [facility] #[id number], 168, cm, 05/19/19 8:56:00 EST, Height, 57.4, [...] 2019. 2Repeat EGD in 07/2020 for surveillance 89770; repeat 2019 4R shoulder 2018 5DrShabnam Choi (ENT surgeons) Social History Social History Type Response Smoking Status Current every day herve toney entered on: 12/17/15 Sex
--- OUTSIDE RECORDS SUMMARY | 2022-12-14 10:58 | XMS_ITS | Continuity of Care Document ---
Author Name Unknown Organization [facility] [place] Address [address] [place] [address]- Care Team Providers Care Family Specialist Name Role Phone Casey Suarez MD Primary Care Physician [facility] 08[facility]20 - 09/08/20 [facility] Adult [address] [place] [address]- Allergies, Adverse Reactions, Alerts Substance Reaction Severity [...] Refuses 1Result Comment: Pt tolerated well. [facility] #[id number] 2Location History: [place] 3Result Comment: [05/06/2017] [facility]:[id number] Medications Creon 36,000 units oral delayed release capsule 1 capsule, By Mouth, 3 times a day, with each meal, # 90 capsule, 3 Refills, Maintenance, 08/07/19 11:39:00 EDT, [facility] #[id number], 1 capsule By Mouth 3 times a day,Instr:with each meal, 168, cm, 08/07/19 9:46:00 EDT, Height, 63.5, kg, 08/06... Start Date: 08/07/19 Status: Ordered ENSURE/VANILLA ENSURE/VANILLA, See Instructions, # 6 pack/packet, Refills 11, Tot. Refills 11, Maintenance, EnsureMax Protein Formula TID DX Pancreatitis Weight Loss 3 [place] 1 Vanilla, 08/28/20 7:45:00 EDT, Compound Start [...] 04/22/20 13:38:00 EST, Route to Pharmacy Electronically, [facility] #[id number], Partial fill upon patient request, 168, cm, 04/22/20 12:49:00 EST,... Start Date: 04/22/20 Status: Ordered multivitamin Multiple Vitamins oral tablet 1 tablet, By Mouth, Daily, # 30 tablet, 5 Refills, Maintenance, 04/22/20 13:08:00 EST, Tablet, [facility] #25127, 1 tablet By Mouth Daily,x30 days, 168, cm, 04/22/20 12:49:00 EST, Height, 63.5, kg, 08/07/19 9:46:00 EDT, Dry Weight Start Date: 04/22/20 Stop Date: 10/19/20 Status: Ordered omeprazole 40 mg oral enteric coated capsule 1 capsule = 40 mg, By Mouth, Daily, # 30 capsule, 10 Refills, Maintenance, 04/22/20 13:08:00 EST, EC Capsule, [facility] #16287, 168, cm, 04/22/20 12:49:00 EST, Height, 63.5, [...] mL, 0 Refills, Maintenance, 08/26/20 16:28:00 EDT, [facility] #84319, Partial fill upon patient request if the prescription is for a schedule II opioid drug., 1 glass ever... Start Date: 08/26/20 Status: Ordered ProAir HFA 90 mcg/inh inhalation aerosol with adapter 2, puffs, Inhalation, Every 6 hours, PRN, # 8.5 Gm, Refills 5, Tot. Refills 5, Maintenance, 07/04/20 8:18:00 EST, Aerosol, Route to Pharmacy Electronically, [id number], [facility] #[id number], 168, cm, 06/14/20 10:38:00... Start Date: 07/04/20 Status: Ordered tamsulosin 0.4 mg oral capsule 0.4 mg, 1, capsule, By Mouth, Daily, PER BELL HODGES, # 90 capsule, Refills 1, Tot. Refills 1, Maintenance, 04/29/20 16:06:00 EST, Route to Pharmacy Electronically, [facility] #[id number],Partial fill upon patient request, 168, cm, ... Start Date: 04/29/20 Status: Ordered traZODone 150 mg oral tablet 1 tablet, By Mouth, Daily at bedtime, PRN NEEDED FOR SLEEP, # 30 tablet, 5 Refills, Maintenance,04/22/20 13:08:00 EST, [facility] #[id number], 168, cm, 04/22/20 12:49:00 EST, Height, 63.5, [...] 2019. 2Repeat EGD in 07/2020 for surveillance 71268; repeat 2019 4R shoulder 2018 5DrShabnam Choi (ENT surgeons) Social History Social History Type Response Smoking Status Current every day herve toney entered on: 12/17/15 Sex
--- OUTSIDE RECORDS SUMMARY | 2022-12-14 10:58 | XMS_ITS | Continuity of Care Document ---
Author Name Unknown Organization [facility] [place] Address [address] [place] [address]- Care Team Providers Care Public Welfare Director Name Role Phone Casey Suarez MD Primary Care Physician [phone] Encounter [facility] Date(s): 09/22/21 - 10/22/21 [facility] [address] [address] Attending Physician: Ana Del Angel Admitting Physician: AdmtrAna Referring Physician: Admtr, Ar8 Allergies, Adverse Reactions, [...] en Parent Or Guardian Refuses 1Result Comment: [facility]# [address] [id number] 2Result Comment: Pt tolerated well. [facility] #[id number] 3Location History: [place] 4Result Comment: [05/06/2017] [facility]:[id number] Medications aspirin 81 mg oral delayed release tablet 1 tablet, By Mouth, Daily, # 90 tablet, 0 Refills, [facility] #50598, 167.6, cm, :54:00 EDT, Height, 63.6, kg, 09/22/21 9:54:00 EDT, Dry Weight Start Date: 10/10/21 Status: Ordered atorvastatin 80 mg oral tablet 1 tablet = 80 mg, By Mouth, Daily at bedtime, # 90 tablet, 3 Refills, Maintenance, 08/14/21 15:28:00 EDT, Tablet, [facility] #12268, 167.64, cm, 08/14/21 15:12:00 EDT, Height, 63.64, kg, 10/30/20 11:22:00 EDT, Dry Weight Start Date: 08/14/21 Stop Date: 08/09/22 Status: Ordered clopidogrel 75 mg oral tablet 75 mg, 1, tablet, By Mouth, Daily, # 30 tablet, Refills 11, Tot. Refills 11, Maintenance, 12/09/20 17:12:00 EDT, Route to Pharmacy Electronically, [facility] #[id number], Partial fill upon patient request if the prescription is for a schedule II... Start Date: 12/09/20 Status: Ordered EpiPen 2-Sameer 0.3 mg injectable kit = 0.3 mg, Intramuscular, Once, Must go to hospital if used, # 1 each, 1 Refills, Soft Stop, 01/09/21 14:45:00 EDT, [facility] #01453, 167.64, cm, 01/09/21 14:27:00 EDT, Height, 63.64, [...] Mouth, Daily, # 90 tablet, 1 Refills, [facility] #67631, 167.6, cm, :54:00 EDT, Height, 63.6, kg, 09/22/21 9:54:00 EDT, Dry Weight Start Date: 10/06/21 Status: Ordered multivitamin Multiple Vitamins oral tablet 1 tablet, By Mouth, Daily, # 90 tablet, 1 Refills, [facility] #59613, 90, TAKE 1 TABLET BY MOUTH DAILY, 167.64, cm, 04/21/21 13:13:00 EST, Height, 63.64, kg, 10/30/20 11:22:00 EDT, Dry Weight Start Date: 07/10/21 Status: Ordered Nutritional Supplements See Instructions, # 90 each, Refills 11, Tot. Refills 11, Maintenance, High Protein Ensure Use TID DX Pancreatitis, Weight Loss ICD 10 K85.90 R63.4 3 [place] 3 Vanilla Height 5'6 Weight 130lbs, 12/20/20 7:33:00 EDT, Supply Start Date: 12/20/20 Status: Ordered omeprazole 40 mg oral enteric coated capsule 1 capsule = 40 mg, By Mouth, Daily, # 30 capsule, 2 Refills, Maintenance, 09/10/21 14:25:00 EDT, ECCapsule, [facility] #61630, 167.64, cm, 09/01/21 8:31:00 EDT, Height, 63.64, kg, 10/30/2110:22:00 EDT, Dry Weight Start Date: 09/10/21 Stop Date: 12/09/21 Status: Ordered Paxlovid 150 mg-100 mg oral tablet See Instructions, follow package instructions, not renally impaired, # 30 tablet, 0 Refills, Maintenance, 09/23/21 15:45:00 EDT, [facility] #59450, Partial fill upon patient request if the prescription is for a schedule II opioid drug., foll... Start Date: 09/23/21 Status: Ordered PEG-3350 with Electrolytes (Eqv-GoLYTELY) oral powder for reconstitution See Instructions, 1 glass every 15-30 minutes until finished, # 4,000 mL, 0 Refills, Maintenance, 08/26/20 16:28:00 EDT, [facility] #18886, Partial fill upon patient request if the prescription is for a schedule II opioid drug., 1 glass ever... Start Date: 08/26/20 Status: Ordered ProAir HFA 90 mcg/inh inhalation aerosol with adapter 2, puffs, Inhalation, Every 6 hours, PRN, # 8.5 Gm, Refills 5, Tot. Refills 5, Maintenance, 07/04/20 8:18:00 EST, Aerosol, Route to Pharmacy Electronically, [id number], [facility] #[id number], 168, cm, 06/14/20 10:38:00... Start Date: 07/04/20 [...] capsule, Refills 1, Route to Pharmacy Electronically, [facility] #34920, 167.6, cm, 09/22/21 9:54:00 EDT, Height, 63.6, [...] FOR SLEEP, # 90 tablet, 1 Refills, [facility] #60772, 167.6, cm, 09/22/21 9:54:00 EDT, Height, 63.6, [...] 2018. 2Repeat EGD in 07/2020 for surveillance 16123; repeat 2019 4R shoulder [address] 5Dr. Jimbo (ENT surgeons) Social History Social History Type Response Smoking Status Current every day herve toney entered on: 12/17/15 Sex
--- OUTSIDE RECORDS SUMMARY | 2022-12-14 10:58 | XMS_ITS | Continuity of Care Document ---
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 [facility] #[id number] 2Location History: [facility] 3Result Comment: [05/06/2017] [facility]:[id number] Medications albuterol 0.083% inhalation solution 3 mL = 2.5 mg, Inhalation, Every 6 hours, # 120 each, 2 Refills, Maintenance, 07/18/18 13:46:17 EST, Solution Start Date: 07/18/18 Status: Ordered aspirin 325 mg oral tablet 325 mg, 1, tablet, By Mouth, Daily, # 90 tablet, Refills 1, Tot. Refills 1, Maintenance, 05/19/19 9:23:00 EST, Route to Pharmacy Electronically, [facility] #[id number], 168, cm, 05/19/19 8:56:00EST, Height, 57.4, kg, 04/04/19 7:51:00 EST, Dry We... Start Date: 05/19/19 Status: Ordered DX: Pancreatitis and Weight Loss DX: Pancreatitis and Weight Loss, See Instructions, # 90 each, Refills 1, Tot. Refills 1, Maintenance, Pedialyte po TID, 05/02/19 8:53:52 EST, Compound Start Date: 05/02/19 Status: Ordered ENSURE/VANILLA ENSURE/VANILLA, See Instructions, # 90 each, Refills 1, Tot. Refills 1, Maintenance, VANILLA ENSURETID DX PANCREATITIS AND WEIGHT LOSS, 05/02/19 8:52:38 EST, Compound Start Date: 05/02/19 Status: Ordered EpiPen 2-Sameer 0.3 mg injectable [...] 05/04/19 14:51:08 EST, Route to Pharmacy Electronically, [id number], [facility] #[id number], 168, cm, 05/02/19 8:32:30... Start Date: 05/04/19 Stop Date: 09/01/19 Status: Ordered gabapentin 300 mg oral capsule See Instructions, TAKE 1 CAPSULE BY MOUTH THREE TIMES DAILY, # 90 capsule, Refills 1, Tot. Refills 1, Soft Stop, 04/06/19 11:37:38 EST, Instructions Replace Required Details, Route to Pharmacy Electronically, [id number], [facility]... Start Date: 04/06/19 Status: Ordered lisinopril 10 mg oral tablet See Instructions, TAKE 1 TABLET BY MOUTH EVERY DAY, # 30 tablet, Refills 2, Tot. Refills 2, Soft Stop, 05/22/19 16:32:00 EST, Instructions Replace Required Details, Route to Pharmacy Electronically, [facility] #[id number], 168, cm, 05/19/19 8:56:... Start Date: 05/22/19 Status: Ordered meloxicam 7.5 mg oral tablet 1 tablet = 7.5 mg, By Mouth, Daily, # 90 tablet, 1 Refills, Maintenance, 04/21/19 15:04:00 EST, Tablet Start Date: 04/21/19 Status: Ordered multivitamin Multiple Vitamins oral tablet 1 tablet, By Mouth, Daily, # 30 tablet, 3 Refills, Maintenance, 05/04/19 14:55:25 EST, Tablet, 1 tablet By Mouth Daily,x30 days, 168, cm, 05/02/19 8:32:30 EST, Height, 57.4, kg, 04/04/19 7:51:38 EST,Dry Weight Start Date: 05/04/19 Stop Date: 09/01/19 Status: Ordered omeprazole 40 mg oral enteric coated capsule 1 capsule = 40 mg, By Mouth, Daily, for 30 days, # 30 capsule, 6 Refills, Hard Stop 07/31/19 15:10:09 EST, 01/02/19 15:10:09 EDT Start Date: 01/02/19 Stop Date: 07/31/19 Status: Ordered OXcarbazepine 600 mg oral tablet See Instructions, # 60 tablet, TAKE 1 TABLET BY MOUTH TWICE DAILY, [facility] #[id number] Start Date: 02/27/19 Status: Ordered oxyCODONE 5 mg oral capsule 1 capsule = 5 mg, By Mouth, Every 6 hours, 0 Refills, Maintenance, 04/17/19 10:03:29 EST, Partial fill upon patient request Start Date: 04/17/19 Status: Ordered PORTABLE NEBULIZER WITH ALL SUPPLIES. [...] Gm, Refills 2, Tot. Refills 2, Maintenance, 07/22/18 11:41:14 EST, Aerosol, Route to Pharmacy Electronically, [id number], [facility]/pharmacy #[id number] Start Date: 07/22/18 Status: Ordered rosuvastatin 40 mg oral tablet TK 1 T PO D Start Date: 04/21/19 Status: Ordered tamsulosin 0.4 mg oral capsule 0.4 mg, 1, capsule, By Mouth, Daily, # 30 capsule, Refills 0, Maintenance, 04/04/19 7:59:22 EST Start Date: 04/04/19 Status: Ordered traZODone 150 mg oral tablet See Instructions, # 30 tablet, Refills 5 Tot. Refills 5, TAKE 1 TABLET BY MOUTH EVERY NIGHT AT BEDTIME NEEDED FOR SLEEP, 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 2Repeat EGD in 07/2020 for surveillance 72475; repeat 2019 4R shoulder 2018 5DrShabnam Choi (ENT surgeons) Social History Social History Type Response Smoking Status Current every day herve toney entered on: 12/17/15 Sex
--- OUTSIDE RECORDS SUMMARY | 2022-12-14 10:58 | XMS_ITS | Continuity of Care Document ---
Author Name Unknown Organization [facility] Address [address] [place] [address]- Care Team Providers Care Internet Webmaster Name Role Phone Casey Suarez MD Primary Care Physician En[facility] Date(s): 12/25/20 - 01/24/21 [facility] [address] [place] [address]- Attending Physician: Ana Del Angel Admitting Physician: AdmtrAna Referring Physician: Admtr, Ar8 Allergies, Adverse Reactions, Alerts Substance Reaction Severity Status Augmentin swelling of throat, diff breath, rash Active Bee Stings anaphylactic Active amoxicillin heart racing [...] Status Refusal Reason Influenza Virus Vaccine (oldterm) 11/22/19 Not Giv en Parent Or Guardian Refuses 1Result Comment: Pt tolerated well. [facility] #[id number] 2Location History: [place] 3Result Comment: [05/06/2017] [facility]:[id number] Medications aspirin 81 mg oral delayed release tablet 81 mg, 1, tablet, By Mouth, Daily, # 90 tablet, Refills 1, Tot. Refills 1, Maintenance, 01/09/21 14:52:00 EDT, Route to Pharmacy Electronically, [facility] #[id number], Partial fill upon patientrequest if the prescription is for a schedule II op... Start Date: 01/09/21 Status: Ordered atorvastatin 80 mg oral tablet 1 tablet = 80 mg, By Mouth, Daily at bedtime, # 90 tablet, 4 Refills, Maintenance, 01/09/21 14:44:00 EDT, Tablet, [facility] #[id number], Partial fill upon patient request if the prescription isfor a schedule II opioid drug., 167.64, cm, ... Start Date: 01/09/21 Stop Date: 04/04/22 Status: Ordered clopidogrel 75 mg oral tablet 75 mg, 1, tablet, By Mouth, Daily, # 30 tablet, Refills 11, Tot. Refills 11, Maintenance, 12/09/20 17:12:00 EDT, Route to Pharmacy Electronically, [facility] #[id number], Partial fill upon patient request if the prescription is for a schedule II... Start Date: 12/09/20 Status: Ordered EpiPen 2-Sameer 0.3 mg injectable kit = 0.3 mg, Intramuscular, Once, Must go to hospital if used, # 1 each, 1 Refills, Soft Stop, 01/09/21 14:45:00 EDT, [facility] #[id number], 167.64, cm, 01/09/21 14:27:00 EDT, Height, 63.64, [...] 01/13/21 9:59:00 EDT, Route to Pharmacy Electronically, [facility] #[id number], Partial fill upon patient request if the prescription is for a schedule II opi... Start Date: 01/13/21 Status: Ordered multivitamin Multiple Vitamins oral tablet 1 tablet, By Mouth, Daily, # 90 tablet, 1 Refills, Maintenance, 01/09/21 14:44:00 EDT, Tablet, [facility] #[id number], 1 tablet By Mouth Daily, 167.64, cm, 01/09/21 14:27:00 EDT, Height, 63.64, kg, 10/30/20 11:22:00 EDT, Dry Weight Start Date: 01/09/21 Status: Ordered Nutritional Supplements See Instructions, # 90 each, Refills 11, Tot. Refills 11, Maintenance, High Protein Ensure Use TID DX Pancreatitis, Weight Loss ICD 10 K85.90 R63.4 3 [place] 3 Vanilla Height 5'6 Weight 130lbs, 12/20/20 7:33:00 EDT, Supply Start Date: 12/20/20 Status: Ordered omeprazole 40 mg oral enteric coated capsule 1 capsule = 40 mg, By Mouth, Daily, # 30 capsule, 2 Refills, Maintenance, 01/14/21 14:05:00 EDT, ECCapsule, [facility] #[id number], 167.64, cm, 01/13/21 9:46:00 EDT, Height, 63.64, kg, 10/30/2110:22:00 EDT, Dry Weight Start Date: 01/14/21 Stop Date: 04/14/21 Status: Ordered PEG-3350 with Electrolytes (Eqv-GoLYTELY) oral powder for reconstitution See Instructions, 1 glass every 15-30 minutes until finished, # 4,000 mL, 0 Refills, Maintenance, 08/26/20 16:28:00 EDT, [facility] #[id number], Partial fill upon patient request if the prescription is for a schedule II opioid drug., 1 glass ever... Start Date: 08/26/20 Status: Ordered ProAir HFA 90 mcg/inh inhalation aerosol with adapter 2, puffs, Inhalation, Every 6 hours, PRN, # 8.5 Gm, Refills 5, Tot. Refills 5, Maintenance, 07/04/20 8:18:00 EST, Aerosol, Route to Pharmacy Electronically, [id number], [facility] #[id number], 168, cm, 06/14/20 10:38:00... Start Date: 07/04/20 [...] 10/16/20 8:15:00 EDT, Route to Pharmacy Electronically, [facility] #[id number], Partial fill upon patient request, 168, cm, [...] 90 tablet, 1 Refills, Maintenance,10/16/20 8:15:00 EDT, [facility] #[id number], 168, cm, 10/16/20 7:49:00 EDT, Height, 60, [...] 2018. 2Repeat EGD in 07/2020 for surveillance 17103; repeat 2019 4R shoulder 2017 5Dr. Jimbo (ENT surgeons) Social History Social History Type Response Smoking Status Current every day herve toney entered on: 12/17/15 Sex
--- OUTSIDE RECORDS SUMMARY | 2022-12-14 10:58 | XMS_ITS | Continuity of Care Document ---
Author Name Unknown Organization [facility] ter Address [address] [place] [address]- Care Team Providers Care Grounds And Nursery Specialist Name Role Phone Casey Suarez MD Primary Care Physician [facility]counter [facility] Date(s): 05/19/19 - 05/19/[address] [address]- [facility] Attending Physician: Not on Staff, Attending MD Allergies, Adverse Reactions, Alerts Substance Reaction Severity Status amoxicillin unknown Active acetaminophen-codeine ANAPHYLAXSIS Active Augmentin swelling of throat, diff breath, rash Active Bee Stings Bee Active Immunizations Given and Recorded Vaccine Date Status Refusal Reason influenza virus vaccine, inactivated 03/21/18 Give n influenza virus vaccine, inactivated 03/06/17 Wong rded influenza virus vaccine, inactivated 1 03/10/16 Re corded pneumococcal 23-valent vaccine 2 05/06/17 Given pneumococcal 23-valent vaccine 04/21/16 Recorded pneumococcal 23-valent vaccine 12/18/15 Given tetanus/diphtheria/pertussis, acel(Tdap) 04/29/16 Given Not Given Vaccine Date Status Refusal Reason Influenza Virus Vaccine (oldterm) 04/21/19 Not Giv en Parent Or Guardian Refuses 1Location History: [place] 2Result Comment: [05/06/2017] [facility]:7394-1634-00 Medications albuterol 0.083% inhalation solution 3 mL = 2.5 mg, Inhalation, Every 6 hours, # 120 each, 2 Refills, Maintenance, 07/18/18 13:46:17 EST, Solution Start Date: 07/18/18 Status: Ordered aspirin 325 mg oral tablet 325 mg, 1, tablet, By Mouth, Daily, # 90 tablet, Refills 1, Tot. Refills 1, Maintenance, 05/19/19 9:23:00 EST, Route to Pharmacy Electronically, [facility] #[id number], 168, cm, 05/19/19 8:56:00EST, Height, 57.4, kg, [...] 05/04/19 14:51:08 EST, Route to Pharmacy Electronically, [id number], [facility] #[id number], 168, cm, 05/02/19 8:32:30... Start Date: 05/04/19 Stop Date: 09/01/19 Status: Ordered gabapentin 300 mg oral capsule See Instructions, TAKE 1 CAPSULE BY MOUTH THREE TIMES DAILY, # 90 capsule, Refills 1, Tot. Refills 1, Soft Stop, 04/06/19 11:37:38 EST, Instructions Replace Required Details, Route to Pharmacy Electronically, [id number], [facility]... Start Date: 04/06/19 Status: Ordered lisinopril 10 mg oral tablet See Instructions, # 30 tablet, Refills 2 Tot. Refills 2, TAKE 1 TABLET BY MOUTH EVERY DAY, [facility] #[id number] Start Date: 02/14/19 Status: Ordered meloxicam 7.5 mg oral tablet [...] TAKE 1 TABLET BY MOUTH TWICE DAILY, [facility] #[id number] Start Date: 02/27/19 Status: Ordered oxyCODONE 5 [...] 11:41:14 EST, Aerosol, Route to Pharmacy Electronically, [id number], [facility]/pharmacy #[id number] Start Date: 07/22/18 Status: Ordered rosuvastatin [...] EVERY NIGHT AT BEDTIME NEEDED FOR SLEEP, [facility] #[id number] Start Date: 12/23/18 Status: Ordered Vicodin 5/500 [...] 2018. 2Repeat EGD in 07/2020 for surveillance 46409; repeat 2019 4R shoulder 2017 5Dr. Jimbo (ENT surgeons) Social History Social History Type Response Smoking Status Current every day herve toney entered on: 12/17/15 Sex
--- OUTSIDE RECORDS SUMMARY | 2022-12-14 10:58 | XMS_ITS | Continuity of Care Document ---
Author Name Unknown Organization [facility] Address Unknown Care Team Providers Care Hand Bander Name Role Phone Casey Suarez MD Primary Care Physician Encounter [facility] Date(s): 12/19/21 - 01/18/22 [facility] Allergies, Adverse Reactions, Alerts Substance Reaction Severity [...] en Parent Or Guardian Refuses 1Result Comment: [facility]# [address] [id number] 2Result Comment: Pt tolerated well. [facility] #[id number] 3Location History: [facility] 4Result Comment: [05/06/2017] [facility]:2177-6422-36 Medications aspirin 81 mg oral delayed release tablet 1 tablet, By Mouth, Daily, # 90 tablet, 0 Refills, [facility] #[id number], 167.6, cm, 228:27:00 EDT, Height, 63.6, kg, 09/22/21 9:54:00 EDT, Dry Weight Start Date: 01/08/22 Status: Ordered atorvastatin 80 mg oral tablet 1 tablet = 80 mg, By Mouth, Daily at bedtime, # 90 tablet, 3 Refills, Maintenance, 08/14/21 15:28:00 EDT, Tablet, [facility] #49299, 167.64, cm, 08/14/21 15:12:00 EDT, Height, 63.64, kg, 10/30/20 11:22:00 EDT, Dry Weight Start Date: 08/14/21 Stop Date: 08/09/22 Status: Ordered clopidogrel 75 mg oral tablet 75 mg, 1, tablet, By Mouth, Daily, # 30 tablet, Refills 11, Tot. Refills 11, Maintenance, 12/09/20 17:12:00 EDT, Route to Pharmacy Electronically, [facility] #[id number], Partial fill upon patient request if the prescription is for a schedule II... Start Date: 12/09/20 Status: Ordered EpiPen 2-Sameer 0.3 mg injectable kit = 0.3 mg, Intramuscular, Once, Must go to hospital if used, # 1 each, 1 Refills, Soft Stop, 01/09/21 14:45:00 EDT, [facility] #[id number], 167.64, cm, 01/09/21 14:27:00 EDT, Height, 63.64, kg, 10/30/20 11:22:00 EDT, Dry Weight Start Date: 01/09/21 Status: Ordered gabapentin 300 mg oral capsule 600 mg, 2, capsule, By Mouth, 2 times a day, # 120 capsule, Refills 0, Tot. Refills 0, Maintenance,01/08/22 8:39:00 EDT, Route to Pharmacy Electronically, [facility] #[id number], Partial fill upon patient request, 167.6, cm, 01/08/22 8:27:00 EDT... Start Date: 01/08/22 Status: Ordered Large Blood Pressure Cuff Large [...] Mouth, Daily, # 90 tablet, 1 Refills, [facility] #[id number], 167.6, cm, :54:00 EDT, Height, 63.6, kg, 09/22/21 9:54:00 EDT, Dry Weight Start Date: 10/06/21 Status: Ordered multivitamin Multiple Vitamins oral tablet 1 tablet, By Mouth, Daily, # 90 tablet, 1 Refills, [facility] #05195, 90, TAKE 1 TABLET BY MOUTH DAILY, 167.64, cm, 04/21/21 13:13:00 EST, Height, 63.64, kg, 10/30/20 11:22:00 EDT, Dry Weight Start Date: 07/10/21 Status: Ordered Nutritional Supplements See Instructions, # 90 each, Refills 11, Tot. Refills 11, Maintenance, High Protein Ensure Use TID DX Pancreatitis, Weight Loss ICD 10 K85.90 R63.4 3 [place] 3 Vanilla Height 5'6 Weight 130lbs, 12/20/20 7:33:00 EDT, Supply Start Date: 12/20/20 Status: Ordered omeprazole 40 mg oral enteric coated capsule 1 capsule, By Mouth, Daily, # 30 capsule, 2 Refills, [facility] #11343, 167.6, cm, 11/06/21 15:13:00 EDT, Height, 63.6, kg, 09/22/21 9:54:00 EDT, Dry Weight Start Date: 12/10/21 Status: Ordered PEG-3350 with Electrolytes (Eqv-GoLYTELY) oral powder for reconstitution See Instructions, 1 glass every 15-30 minutes until finished, # 4,000 mL, 0 Refills, Maintenance, 08/26/20 16:28:00 EDT, [facility] #03889, Partial fill upon patient request if the prescription is for a schedule II opioid drug., 1 glass ever... Start Date: 08/26/20 Status: Ordered ProAir HFA 90 mcg/inh inhalation aerosol with adapter 2, puffs, Inhalation, Every 6 hours, PRN, # 8.5 Gm, Refills 5, Tot. Refills 5, Maintenance, 07/04/20 8:18:00 EST, Aerosol, Route to Pharmacy Electronically, [id number], [facility] #21824, 168, cm, 06/14/20 10:38:00... Start Date: 07/04/20 [...] capsule, Refills 1, Route to Pharmacy Electronically, [facility] #55215, 167.6, cm, 09/22/21 9:54:00 EDT, Height, 63.6, [...] FOR SLEEP, # 90 tablet, 1 Refills, [facility] #[id number], 167.6, cm, 09/22/21 9:54:00 EDT, Height, 63.6, kg, 09/22/21 9:54:00 EDT, Dry Weight Start Date: 10/10/21 Status: Ordered Problem List Condition Effective Dates Status Health Status Inform ant Abscess of buttock(Confirmed) Active Necrotizing pancreatitis(Confirmed) Active Anxiety(Confirmed) Active Atherosclerosis(Confirmed) 1 [...] Active Tubular adenoma of colon(Confirmed) 02/02/17 Active URI (upper respiratory infection)(Confirmed) Active 1Atherosclerosis by lumbar spine x-ray 2018. 2Repeat EGD in 07/2020 for surveillance 31122; repeat 2019 4R shoulder [address] 5Dr. Jimbo (ENT surgeons) Social History Social History Type Response Smoking Status Current every day herve toney entered on: 12/17/15 Sex
--- OUTSIDE RECORDS SUMMARY | 2022-12-14 10:58 | XMS_ITS | Continuity of Care Document ---
Author Name Unknown Organization [facility] Address [address] [place] [address]- Care Team Providers Care Director Of Archives Name Role Phone Casey Suarez MD Primary Care Physician [facility] Date(s): 02/12/21 - 03/14/21 [facility] [address] [place] [address]- [place] Allergies, Adverse Reactions, Alerts Substance Reaction [...] Refuses 1Result Comment: Pt tolerated well. [facility] #[id number] 2Location History: [place] 3Result Comment: [05/06/2017] [facility]:9351-2361-59 Medications aspirin 81 mg oral delayed release tablet 81 mg, 1, tablet, By Mouth, Daily, # 90 tablet, Refills 1, Tot. Refills 1, Maintenance, 01/09/21 14:52:00 EDT, Route to Pharmacy Electronically, [facility] #[id number], Partial fill upon patientrequest if the prescription is for a schedule II op... Start Date: 01/09/21 Status: Ordered atorvastatin 80 mg oral tablet 1 tablet = 80 mg, By Mouth, Daily at bedtime, # 90 tablet, 3 Refills, Maintenance, 02/12/21 10:54:00 EDT, Tablet, [facility] #[id number], 167.64, cm, 01/13/21 9:46:00 EDT, Height, 63.64, kg, 10/30/20 11:22:00 EDT, Dry Weight Start Date: 02/12/21 Stop Date: 02/07/22 Status: Ordered clopidogrel 75 mg oral tablet 75 mg, 1, tablet, By Mouth, Daily, # 30 tablet, Refills 11, Tot. Refills 11, Maintenance, 12/09/20 17:12:00 EDT, Route to Pharmacy Electronically, [facility] #[id number], Partial fill upon patient request if the prescription is for a schedule II... Start Date: 12/09/20 Status: Ordered EpiPen 2-Sameer 0.3 mg injectable kit = 0.3 mg, Intramuscular, Once, Must go to hospital if used, # 1 each, 1 Refills, Soft Stop, 01/09/21 14:45:00 EDT, [facility] #[id number], 167.64, cm, 01/09/21 14:27:00 EDT, Height, 63.64, [...] 01/13/21 9:59:00 EDT, Route to Pharmacy Electronically, [facility] #[id number], Partial fill upon patient request if the prescription is for a schedule II opi... Start Date: 01/13/21 Status: Ordered multivitamin Multiple Vitamins oral tablet 1 tablet, By Mouth, Daily, # 90 tablet, 1 Refills, Maintenance, 01/09/21 14:44:00 EDT, Tablet, [facility] #57875, 1 tablet By Mouth Daily, 167.64, cm, 01/09/21 14:27:00 EDT, Height, 63.64, kg, 10/30/20 11:22:00 EDT, Dry Weight Start Date: 01/09/21 Status: Ordered Nutritional Supplements See Instructions, # 90 each, Refills 11, Tot. Refills 11, Maintenance, High Protein Ensure Use TID DX Pancreatitis, Weight Loss ICD 10 K85.90 R63.4 3 [place] 3 Vanilla Height 5'6 Weight 130lbs, 12/20/20 7:33:00 EDT, Supply Start Date: 12/20/20 Status: Ordered omeprazole 40 mg oral enteric coated capsule 1 capsule = 40 mg, By Mouth, Daily, # 30 capsule, 2 Refills, Maintenance, 01/14/21 14:05:00 EDT, ECCapsule, [facility] #57797, 167.64, cm, 01/13/21 9:46:00 EDT, Height, 63.64, kg, 10/30/2110:22:00 EDT, Dry Weight Start Date: 01/14/21 Stop Date: 04/14/21 Status: Ordered PEG-3350 with Electrolytes (Eqv-GoLYTELY) oral powder for reconstitution See Instructions, 1 glass every 15-30 minutes until finished, # 4,000 mL, 0 Refills, Maintenance, 08/26/20 16:28:00 EDT, [facility] #[id number], Partial fill upon patient request if the prescription is for a schedule II opioid drug., 1 glass ever... Start Date: 08/26/20 Status: Ordered ProAir HFA 90 mcg/inh inhalation aerosol with adapter 2, puffs, Inhalation, Every 6 hours, PRN, # 8.5 Gm, Refills 5, Tot. Refills 5, Maintenance, 07/04/20 8:18:00 EST, Aerosol, Route to Pharmacy Electronically, [id number], [facility] #[id number], 168, cm, 06/14/20 10:38:00... Start Date: 07/04/20 [...] 10/16/20 8:15:00 EDT, Route to Pharmacy Electronically, [facility] #[id number], Partial fill upon patient request, 168, cm, [...] 90 tablet, 1 Refills, Maintenance,10/16/20 8:15:00 EDT, [facility] #92533, 168, cm, 10/16/20 7:49:00 EDT, Height, 60, [...] 2019. 2Repeat EGD in 07/2020 for surveillance 08856; repeat 2019 4R shoulder 2018 5DrShabnam Choi (ENT surgeons) Social History Social History Type Response Smoking Status Current every day herve toney entered on: 12/17/15 Sex
--- OUTSIDE RECORDS SUMMARY | 2022-12-14 10:58 | XMS_ITS | Continuity of Care Document ---
Author Name Unknown Organization [facility] ter Address [address] [place] [address]- Care Team Providers Care Greens Keeper Name Role Phone Daniela BROWN, Casey Jiménez Primary Care Physician [phone] Encounter [facility] Date(s): 05/26/19 - 05/26/[address] [address]- [facility] Attending Physician: Josey OSORIO, Tyra Willis Allergies, Adverse Reactions, Alerts Substance Reaction Severity [...] 1Result Comment: Pt tolerated well. [facility] #[id number] 2Location History: [place] 3Result Comment: [05/06/2017] [facility]:[id number] Medications albuterol 0.083% inhalation solution 3 mL = 2.5 mg, Inhalation, Every 6 hours, # 120 each, 2 Refills, Maintenance, 07/18/18 13:46:17 EST, Solution Start Date: 07/18/18 Status: Ordered aspirin 325 mg oral tablet 325 mg, 1, tablet, By Mouth, Daily, # 90 tablet, Refills 1, Tot. Refills 1, Maintenance, 05/19/19 9:23:00 EST, Route to Pharmacy Electronically, [facility] #[id number], 168, cm, 05/19/19 8:56:00EST, Height, 57.4, kg, [...] 05/04/19 14:51:08 EST, Route to Pharmacy Electronically, [id number], [facility] #[id number], 168, cm, 05/02/19 8:32:30... Start Date: 05/04/19 Stop Date: 09/01/19 Status: Ordered gabapentin 300 mg oral capsule See Instructions, TAKE 1 CAPSULE BY MOUTH THREE TIMES DAILY, # 90 capsule, Refills 1, Tot. Refills 1, Soft Stop, 04/06/19 11:37:38 EST, Instructions Replace Required Details, Route to Pharmacy Electronically, [id number], [facility]... Start Date: 04/06/19 Status: Ordered lisinopril 10 mg oral tablet See Instructions, TAKE 1 TABLET BY MOUTH EVERY DAY, # 30 tablet, Refills 2, Tot. Refills 2, Soft Stop, 05/22/19 16:32:00 EST, Instructions Replace Required Details, Route to Pharmacy Electronically, [facility] #[id number], 168, cm, 05/19/19 8:56:... Start Date: 05/22/19 [...] TAKE 1 TABLET BY MOUTH TWICE DAILY, [facility] #[id number] Start Date: 02/27/19 Status: Ordered oxyCODONE 5 [...] 11:41:14 EST, Aerosol, Route to Pharmacy Electronically, [id number], [facility]/pharmacy #[id number] Start Date: 07/22/18 Status: Ordered rosuvastatin [...] EVERY NIGHT AT BEDTIME NEEDED FOR SLEEP, [facility] #[id number] Start Date: 12/23/18 Status: Ordered Vicodin 5/500 [...] 2019. 2Repeat EGD in 07/2020 for surveillance 21345; repeat 2019 4R shoulder 2018 5Dr. Jimbo (ENT surgeons) Social History Social History Type Response Smoking Status Current every day herve toney entered on: 12/17/15 Sex
--- OUTSIDE RECORDS SUMMARY | 2022-12-14 10:59 | XMS_ITS | Continuity of Care Document ---
Author Name Unknown Organization [facility] [place] Address [address] [place] [address]- Care Team Providers Care Gaggerman Name Role Phone Casey Suarez MD Primary Care Physician [phone] Encounter [facility] Date(s): 03/20/21 - 04/19/21 [facility] Adult [address] [place] [address]- Attending Physician: Admtr, Ar8 Admitting Physician: Admtr, Ar8 Referring Physician: Admtr, Ar8 Allergies, Adverse Reactions, Alerts Substance Reaction Severity Status amoxicillin heart racing Active acetaminophen-codeine ANAPHYLAXSIS Active Augmentin swelling of throat, diff breath, rash Active Bee Stings anaphylactic Active Immunizations Given and Recorded Vaccine Date Status Refusal Reason influenza virus vaccine, inactivated 1 03/20/21 Gi nini influenza virus vaccine, inactivated 04/22/20 Give n influenza virus vaccine, inactivated 2 05/26/19 Gi nini influenza virus vaccine, inactivated 03/21/18 Give n influenza virus vaccine, inactivated 03/06/17 Wong rded influenza virus vaccine, inactivated 3 03/10/16 Re corded influenza virus vaccine, inactivated 05/08/15 Wong rded SARS-CoV-2 (COVID-19) mRNA BNT-162b2 vac 09/21/20 Recorded SARS-CoV-2 (COVID-19) mRNA BNT-162b2 vac 08/29/20 Recorded pneumococcal 23-valent vaccine 4 05/06/17 Given pneumococcal 23-valent vaccine 04/21/16 Recorded pneumococcal 23-valent vaccine 04/20/16 Recorded pneumococcal 23-valent vaccine 12/18/15 Given tetanus/diphtheria/pertussis, acel(Tdap) 04/29/16 Given tetanus-diphtheria toxoids (Td) 01/03/14 Recorded Not Given Vaccine Date Status Refusal Reason Influenza Virus Vaccine (oldterm) 04/21/19 Not Giv en Parent Or Guardian Refuses 1Result Comment: [facility]# [address] [id number] 2Result Comment: Pt tolerated well. [facility] #[id number] 3Location History: [facility] 4Result Comment: [05/06/2017] [facility]:4429-6445-69 Medications aspirin 81 mg oral delayed release tablet 81 mg, 1, tablet, By Mouth, Daily, # 90 tablet, Refills 1, Tot. Refills 1, Maintenance, 01/09/21 14:52:00 EDT, Route to Pharmacy Electronically, [facility] #[id number], Partial fill upon patientrequest if the prescription is for a schedule II op... Start Date: 01/09/21 Status: Ordered atorvastatin 80 mg oral tablet 1 tablet = 80 mg, By Mouth, Daily at bedtime, # 90 tablet, 3 Refills, Maintenance, 02/12/21 10:54:00 EDT, Tablet, [facility] #00567, 167.64, cm, 01/13/21 9:46:00 EDT, Height, 63.64, kg, 10/30/20 11:22:00 EDT, Dry Weight Start Date: 02/12/21 Stop Date: 02/07/22 Status: Ordered clopidogrel 75 mg oral tablet 75 mg, 1, tablet, By Mouth, Daily, # 30 tablet, Refills 11, Tot. Refills 11, Maintenance, 12/09/20 17:12:00 EDT, Route to Pharmacy Electronically, [facility] #36654, Partial fill upon patient request if the prescription is for a schedule II... Start Date: 12/09/20 Status: Ordered EpiPen 2-Sameer 0.3 mg injectable kit = 0.3 mg, Intramuscular, Once, Must go to hospital if used, # 1 each, 1 Refills, Soft Stop, 01/09/21 14:45:00 EDT, [facility] #[id number], 167.64, cm, 01/09/21 14:27:00 EDT, Height, 63.64, [...] 01/13/21 9:59:00 EDT, Route to Pharmacy Electronically, [facility] #[id number], Partial fill upon patient request if the prescription is for a schedule II opi... Start Date: 01/13/21 Status: Ordered multivitamin Multiple Vitamins oral tablet 1 tablet, By Mouth, Daily, # 90 tablet, 1 Refills, Maintenance, 01/09/21 14:44:00 EDT, Tablet, [facility] #58911, 1 tablet By Mouth Daily, 167.64, cm, 01/09/21 14:27:00 EDT, Height, 63.64, kg, 10/30/20 11:22:00 EDT, Dry Weight Start Date: 01/09/21 Status: Ordered Nutritional Supplements See Instructions, # 90 each, Refills 11, Tot. Refills 11, Maintenance, High Protein Ensure Use TID DX Pancreatitis, Weight Loss ICD 10 K85.90 R63.4 3 [place] 3 Vanilla Height 5'6 Weight 130lbs, 12/20/20 7:33:00 EDT, Supply Start Date: 12/20/20 Status: Ordered omeprazole 40 mg oral enteric coated capsule 1 capsule = 40 mg, By Mouth, Daily, # 30 capsule, 2 Refills, Maintenance, 01/14/21 14:05:00 EDT, ECCapsule, [facility] #[id number], 167.64, cm, 01/13/21 9:46:00 EDT, Height, 63.64, kg, 10/30/2110:22:00 EDT, Dry Weight Start Date: 01/14/21 Stop Date: 04/14/21 Status: Ordered PEG-3350 with Electrolytes (Eqv-GoLYTELY) oral powder for reconstitution See Instructions, 1 glass every 15-30 minutes until finished, # 4,000 mL, 0 Refills, Maintenance, 08/26/20 16:28:00 EDT, [facility] #[id number], Partial fill upon patient request if the prescription is for a schedule II opioid drug., 1 glass ever... Start Date: 08/26/20 Status: Ordered ProAir HFA 90 mcg/inh inhalation aerosol with adapter 2, puffs, Inhalation, Every 6 hours, PRN, # 8.5 Gm, Refills 5, Tot. Refills 5, Maintenance, 07/04/20 8:18:00 EST, Aerosol, Route to Pharmacy Electronically, [id number], [facility] #[id number], 168, cm, 06/14/20 10:38:00... Start Date: 07/04/20 [...] capsule, Refills 1, Route to Pharmacy Electronically, [facility] #[id number], 167.64, cm, 03/20/21 8:49:00 EDT, Height, 63.64, [...] FOR SLEEP, # 90 tablet, 1 Refills, [facility] #[id number], 167.64, cm, 03/20/21 8:49:00 EDT, Height, 63.64, [...] 2019. 2Repeat EGD in 07/2020 for surveillance 14502; repeat 2019 4R shoulder [address] 5Dr. Jimbo (ENT surgeons) Social History Social History Type Response Smoking Status Current every day herve toney entered on: 12/17/15 Sex
--- OUTSIDE RECORDS SUMMARY | 2022-12-14 10:59 | XMS_ITS | Continuity of Care Document ---
Author Name Unknown Organization [facility] [place] Address [address] [place] [address]- Care Team Providers Care Regulatory Technician Name Role Phone Casey Suarez MD Primary Care Physician [place] [facility] [place] 10/15/20 [facility] Adult [address] [place] [address]- Allergies, Adverse Reactions, Alerts Substance Reaction Severity [...] Guardian Refuses 1Result Comment: Pt tolerated well. [facility] #[id number] 2Location History: [place] 3Result Comment: [05/06/2017] [facility]:1441-8437-33 Medications aspirin 81 mg oral delayed release tablet 81 mg, 1, tablet, By Mouth, Daily, Refills 0, Maintenance, 10/07/20 14:42:00 EDT, Partial fill uponpatient request if the prescription is for a schedule II opioid drug. Start Date: 10/07/20 Status: Ordered Creon 36,000 units oral delayed release capsule 1 capsule, By Mouth, 3 times a day, with each meal, # 90 capsule, 3 Refills, Maintenance, 08/07/19 11:39:00 EDT, [facility] #[id number], 1 capsule By Mouth 3 times a [...] Formula TID DX Pancreatitis Weight Loss 3 [place] 1 Vanilla, 08/28/20 7:45:00 EDT, Compound Start [...] 04/22/20 13:38:00 EST, Route to Pharmacy Electronically, [facility] #[id number], Partial fill upon patient request, 168, cm, 04/22/20 12:49:00 EST,... Start Date: 04/22/20 Status: Ordered isosorbide mononitrate 30 mg oral tablet, extended release See Instructions, 1/2 tablet By Mouth Daily in AM 30 days, # 15 tablet, Refills 3, Tot. Refills 3, Maintenance, 10/07/20 15:26:00 EDT, Instructions Replace Required Details, Route to Pharmacy Electronically, [facility] #[id number], Partial fill u... Start Date: 10/07/20 Status: Ordered multivitamin Multiple Vitamins oral tablet 1 tablet, By Mouth, Daily, # 30 tablet, 5 Refills, Maintenance, 04/22/20 13:08:00 EST, Tablet, [facility] #[id number], 1 tablet By Mouth Daily,x30 days, 168, cm, 04/22/20 12:49:00 EST, Height, 63.5, kg, 08/07/19 9:46:00 EDT, Dry Weight Start Date: 04/22/20 Stop Date: 10/19/20 Status: Ordered omeprazole 40 mg oral enteric coated capsule 1 capsule = 40 mg, By Mouth, Daily, # 30 capsule, 10 Refills, Maintenance, 04/22/20 13:08:00 EST, EC Capsule, [facility] #[id number], 168, cm, 04/22/20 12:49:00 EST, Height, 63.5, [...] mL, 0 Refills, Maintenance, 08/26/20 16:28:00 EDT, [facility] #[id number], Partial fill upon patient request if the prescription is for a schedule II opioid drug., 1 glass ever... Start Date: 08/26/20 Status: Ordered ProAir HFA 90 mcg/inh inhalation aerosol with adapter 2, puffs, Inhalation, Every 6 hours, PRN, # 8.5 Gm, Refills 5, Tot. Refills 5, Maintenance, 07/04/20 8:18:00 EST, Aerosol, Route to Pharmacy Electronically, [id number], [facility] #[id number], 168, cm, 06/14/20 10:38:00... Start Date: 07/04/20 Status: Ordered tamsulosin 0.4 mg oral capsule 0.4 mg, 1, capsule, By Mouth, Daily, PER BELL HODGES, # 90 capsule, Refills 1, Tot. Refills 1, Maintenance, 04/29/20 16:06:00 EST, Route to Pharmacy Electronically, [facility] #[id number],Partial fill upon patient request, 168, cm, ... Start Date: 04/29/20 Status: Ordered traZODone 150 mg oral tablet 1 tablet, By Mouth, Daily at bedtime, PRN NEEDED FOR SLEEP, # 30 tablet, 5 Refills, Maintenance,04/22/20 13:08:00 EST, [facility] #[id number], 168, cm, 04/22/20 12:49:00 EST, Height, 63.5, [...] 2019. 2Repeat EGD in 07/2020 for surveillance 80186; repeat 2019 4R shoulder [address] 5Dr. Jimbo (ENT surgeons) Social History Social History Type Response Smoking Status Current every day herve toney entered on: 12/17/15 Sex
--- OUTSIDE RECORDS SUMMARY | 2022-12-14 10:59 | XMS_ITS | Continuity of Care Document ---
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 [facility] #[id number] 3Location History: [facility] 4Result Comment: [05/06/2017] [facility]:1066-9550-84 Medications aspirin 81 mg oral delayed release tablet 1 tablet, By Mouth, Daily, # 90 tablet, 0 Refills, [facility] #[id number], 167.64, cm, 04/21/21 13:13:00 EST, Height, 63.64, kg, 10/30/20 11:22:00 EDT, Dry Weight Start Date: 07/11/21 Status: Ordered atorvastatin 80 mg oral tablet 1 tablet = 80 mg, By Mouth, Daily at bedtime, # 90 tablet, 3 Refills, Maintenance, 08/14/21 15:28:00 EDT, Tablet, [facility] #[id number], 167.64, cm, 08/14/21 15:12:00 EDT, Height, 63.64, kg, 10/30/20 11:22:00 EDT, Dry Weight Start Date: 08/14/21 Stop Date: 08/09/22 Status: Ordered clopidogrel 75 mg oral tablet 75 mg, 1, tablet, By Mouth, Daily, # 30 tablet, Refills 11, Tot. Refills 11, Maintenance, 12/09/20 17:12:00 EDT, Route to Pharmacy Electronically, [facility] #[id number], Partial fill upon patient request if the prescription is for a schedule II... Start Date: 12/09/20 Status: Ordered EpiPen 2-Sameer 0.3 mg injectable kit = 0.3 mg, Intramuscular, Once, Must go to hospital if used, # 1 each, 1 Refills, Soft Stop, 01/09/21 14:45:00 EDT, [facility] #[id number], 167.64, cm, 01/09/21 14:27:00 EDT, Height, 63.64, [...] 12/27/20 Status: Ordered metoprolol 25 mg oral tablet, extended release 25 mg, 1, tablet, By Mouth, Daily, # 90 tablet, Refills 0, Tot. Refills 0, Maintenance, 08/14/21 15:27:00 EDT, Do Not Route, Partial fill upon patient request if the prescription is for a schedule IIopioid drug. Start Date: 08/14/21 Status: Ordered multivitamin Multiple Vitamins oral tablet 1 tablet, By Mouth, Daily, # 90 tablet, 1 Refills, [facility] #[id number], 90, TAKE 1 TABLET BY MOUTH DAILY, 167.64, cm, 04/21/21 13:13:00 EST, Height, 63.64, kg, 10/30/20 11:22:00 EDT, Dry Weight Start Date: 07/10/21 Status: Ordered Nutritional Supplements See Instructions, # 90 each, Refills 11, Tot. Refills 11, Maintenance, High Protein Ensure Use TID DX Pancreatitis, Weight Loss ICD 10 K85.90 R63.4 3 [place] 3 Vanilla Height 5'6 Weight 130lbs, 12/20/20 7:33:00 EDT, Supply Start Date: 12/20/20 Status: Ordered omeprazole 40 mg oral enteric coated capsule 1 capsule = 40 mg, By Mouth, Daily, # 30 capsule, 2 Refills, Maintenance, 01/14/21 14:05:00 EDT, [facility] #78435, 167.64, cm, 01/13/21 9:46:00 EDT, Height, 63.64, kg, 10/30/2110:22:00 EDT, Dry Weight Start Date: 01/14/21 Stop Date: 04/14/21 Status: Ordered PEG-3350 with Electrolytes (Eqv-GoLYTELY) oral powder for reconstitution See Instructions, 1 glass every 15-30 minutes until finished, # 4,000 mL, 0 Refills, Maintenance, 08/26/20 16:28:00 EDT, [facility] #[id number], Partial fill upon patient request if the prescription is for a schedule II opioid drug., 1 glass ever... Start Date: 08/26/20 Status: Ordered ProAir HFA 90 mcg/inh inhalation aerosol with adapter 2, puffs, Inhalation, Every 6 hours, PRN, # 8.5 Gm, Refills 5, Tot. Refills 5, Maintenance, 07/04/20 8:18:00 EST, Aerosol, Route to Pharmacy Electronically, [id number], [facility] #47572, 168, cm, 06/14/20 10:38:00... Start Date: 07/04/20 [...] capsule, Refills 1, Route to Pharmacy Electronically, [facility] #[id number], 167.64, cm, 03/20/21 8:49:00 EDT, Height, 63.64, [...] FOR SLEEP, # 90 tablet, 1 Refills, [facility] #[id number], 167.64, cm, 03/20/21 8:49:00 EDT, Height, 63.64, kg, 10/30/20 11:22:00 EDT, Dry Weight Start Date: 04/13/21 Status: Ordered Problem List Condition Effective Dates [...] 2019. 2Repeat EGD in 07/2020 for surveillance 63552; repeat 2019 4R shoulder 2018 5DrShabnam Choi (ENT surgeons) Social History Social History Type Response Smoking Status Current every day herve toney entered on: 12/17/15 Sex
--- OUTSIDE RECORDS SUMMARY | 2022-12-14 10:59 | XMS_ITS | Continuity of Care Document ---
Author Name Unknown Organization [facility] kiel Address [address] [place] [address]- Care Team Providers Care Development Expert Name Role Phone Daniela BROWN, Casey Jiménez Primary Care Physician [phone] Encounter [facility] Date(s): 11/15/20 - 12/15/20 [facility] [address] [place] [address]- Allergies, Adverse Reactions, Alerts Substance Reaction Severity [...] Guardian Refuses 1Result Comment: Pt tolerated well. [facility] #[id number] 2Location History: [facility] 3Result Comment: [05/06/2017] [facility]:6828-7718-95 Medications amiodarone 200 mg oral tablet 200 mg, 1, tablet, By Mouth, 2 times a day, # 60 tablet, Refills 0, Tot. Refills 0, Maintenance, 11/13/20 9:34:00 EDT, Route to Pharmacy Electronically, [facility], Partial fill upon patient request if the prescription is for a schedule... Start Date: 11/13/20 Status: Ordered aspirin 81 mg oral delayed release tablet 81 mg, 1, tablet, By Mouth, Daily, Future refills to come from cardiology or PCP, # 30 tablet, Refills 0, Tot. Refills 0, Maintenance, 12/13/20 9:32:00 EDT, Route to Pharmacy Electronically, [facility] #73126, Partial fill upon patient reque... Start Date: 12/13/20 Stop Date: 01/12/21 Status: Ordered atorvastatin 80 mg oral tablet 1 tablet = 80 mg, By Mouth, Daily at bedtime, # 90 tablet, 4 Refills, Maintenance, 02/07/21 10:28:00 EDT, Tablet, [facility] #02834, Partial fill upon patient request if the prescription isfor a schedule II opioid drug., 167.64, cm, ... Start Date: 02/07/21 Stop Date: 05/03/22 Status: Ordered atorvastatin 80 mg oral tablet 1 tablet = 80 mg, By Mouth, Daily at bedtime, for 30 days, # 30 tablet, 1 Refills, Hard Stop 02/07/21 10:28:00 EDT, 12/09/20 10:28:00 EDT, Tablet, [facility] #[id number], Partial fill upon patient request if the prescription is for a schedule II... Start Date: 12/09/20 Stop Date: 02/07/21 Status: Ordered clopidogrel 75 mg oral tablet 75 mg, 1, tablet, By Mouth, Daily, # 30 tablet, Refills 11, Tot. Refills 11, Maintenance, 12/09/20 17:12:00 EDT, Route to Pharmacy Electronically, [facility] #34905, Partial fill upon patient request if the prescription is for a schedule II... Start Date: 12/09/20 Status: Ordered docusate sodium 100 mg oral tablet = 100 mg, By Mouth, 2 times a day, # 6 tablet, 0 Refills, Maintenance, 11/13/20 9:34:00 EDT, Tablet, [facility], Partial fill upon patient request if [...] 11/13/20 9:32:00 EDT, Route to Pharmacy Electronically, [facility], Partial fill upon patient request, 167.64, cm, 11/13/20 6:08:00 EDT, H... Start Date: 11/13/20 Stop Date: 06/11/21 Status: Ordered metoprolol 50 mg oral tablet 50 mg, 1, tablet, By Mouth, 2 times a day, Future refills to come from cardiology or PCP, # 60 capsule, Refills 0, Tot. Refills 0, Maintenance, 12/13/20 9:33:00 EDT, Route to Pharmacy Electronically,[facility] #[id number], Metoprolol tartrate ta... Start Date: 12/13/20 Stop Date: 01/12/21 Status: Ordered multivitamin Multiple Vitamins oral tablet 1 tablet, By Mouth, Daily, # 30 tablet, 0 Refills, Maintenance, 12/09/20 17:12:00 EDT, Tablet, [facility] #45689, 1 tablet By Mouth Daily, 167.64, cm, 11/22/20 15:34:00 EDT, Height, 63.64, kg, 10/30/20 11:22:00 EDT, Dry Weight Start Date: 12/09/20 Stop Date: 06/07/21 Status: Ordered Nutritional Supplements See Instructions, # 90 each, Refills 11, Tot. Refills 11, Maintenance, High Protein Ensure Use TID DX Pancreatitis, Weight Loss ICD 10 K85.90 R63.4 3 [place] 3 Vanilla Height 5'6 Weight 130lbs, 12/10/20 13:52:00 EDT, Supply Start Date: 12/10/20 Status: Ordered omeprazole 40 mg oral enteric coated capsule 1 capsule = 40 mg, By Mouth, Daily, # 30 capsule, 10 Refills, Maintenance, 04/22/20 13:08:00 EST, EC Capsule, [facility] #06504, 168, cm, 04/22/20 12:49:00 EST, Height, 63.5, [...] mL, 0 Refills, Maintenance, 08/26/20 16:28:00 EDT, [facility] #[id number], Partial fill upon patient request if the prescription is for a schedule II opioid drug., 1 glass ever... Start Date: 08/26/20 Status: Ordered ProAir HFA 90 mcg/inh inhalation aerosol with adapter 2, puffs, Inhalation, Every 6 hours, PRN, # 8.5 Gm, Refills 5, Tot. Refills 5, Maintenance, 07/04/20 8:18:00 EST, Aerosol, Route to Pharmacy Electronically, [id number], [facility] #[id number], 168, cm, 06/14/20 10:38:00... Start Date: 07/04/20 Status: Ordered tamsulosin 0.4 mg oral capsule 0.4 mg, 1, capsule, By Mouth, Daily, PER BELL HODGES, # 90 capsule, Refills 1, Tot. Refills 1, Maintenance, 10/16/20 8:15:00 EDT, Route to Pharmacy Electronically, [facility] #[id number], Partial fill upon patient request, 168, cm, 10/16/20... Start Date: 10/16/20 Status: Ordered traZODone 150 mg oral tablet 1 tablet, By Mouth, Daily at bedtime, PRN NEEDED FOR SLEEP, # 90 tablet, 1 Refills, Maintenance,10/16/20 8:15:00 EDT, [facility] #49123, 168, cm, 10/16/20 7:49:00 EDT, Height, 60, [...] 2018. 2Repeat EGD in 07/2020 for surveillance 06759; repeat 2019 4R shoulder [address] 5Dr[address] Jimbo (ENT surgeons) Social History Social History Type Response Smoking Status Current every day herve toney entered on: 12/17/15 Sex
--- OUTSIDE RECORDS SUMMARY | 2022-12-14 10:59 | XMS_ITS | Continuity of Care Document ---
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 [facility] #[id number] 2Location History: [place] 3Result Comment: [05/06/2017] [facility]:1599-3639-25 Medications amiodarone 200 mg oral tablet 200 mg, 1, tablet, By Mouth, 2 times a day, # 60 tablet, Refills 0, Tot. Refills 0, Maintenance, 11/13/20 9:34:00 EDT, Route to Pharmacy Electronically, [facility], Partial fill upon patient request if the prescription is for a schedule... Start Date: 11/13/20 Status: Ordered aspirin 81 mg oral delayed release tablet 81 mg, 1, tablet, By Mouth, Daily, Future refills to come from cardiology or PCP, # 30 tablet, Refills 0, Tot. Refills 0, Maintenance, 12/13/20 9:32:00 EDT, Route to Pharmacy Electronically, [facility] #[id number], Partial fill upon patient reque... Start Date: 12/13/20 Stop Date: 01/12/21 Status: Ordered atorvastatin 80 mg oral tablet 1 tablet = 80 mg, By Mouth, Daily at bedtime, # 90 tablet, 4 Refills, Maintenance, 02/07/21 10:28:00 EDT, Tablet, [facility] #[id number], Partial fill upon patient request if the prescription isfor a schedule II opioid drug., 167.64, cm, ... Start Date: 02/07/21 Stop Date: 05/03/22 Status: Ordered atorvastatin 80 mg oral tablet 1 tablet = 80 mg, By Mouth, Daily at bedtime, for 30 days, # 30 tablet, 1 Refills, Hard Stop 02/07/21 10:28:00 EDT, 12/09/20 10:28:00 EDT, Tablet, [facility] #[id number], Partial fill upon patient request if the prescription is for a schedule II... Start Date: 12/09/20 Stop Date: 02/07/21 Status: Ordered clopidogrel 75 mg oral tablet 75 mg, 1, tablet, By Mouth, Daily, # 30 tablet, Refills 11, Tot. Refills 11, Maintenance, 12/09/20 17:12:00 EDT, Route to Pharmacy Electronically, [facility] #[id number], Partial fill upon patient request if the prescription is for a schedule II... Start Date: 12/09/20 Status: Ordered docusate sodium 100 mg oral tablet = 100 mg, By Mouth, 2 times a day, # 6 tablet, 0 Refills, Maintenance, 11/13/20 9:34:00 EDT, Tablet, [facility], Partial fill upon patient request if [...] 11/13/20 9:32:00 EDT, Route to Pharmacy Electronically, [facility], Partial fill upon patient request, 167.64, cm, 11/13/20 6:08:00 EDT, H... Start Date: 11/13/20 Stop Date: 06/11/21 Status: Ordered Large Blood Pressure Cuff Large [...] Maintenance, 12/13/20 9:33:00 EDT, Route to Pharmacy Electronically,[facility] #[id number], Metoprolol tartrate ta... Start Date: 12/13/20 Stop Date: 01/12/21 Status: Ordered multivitamin Multiple Vitamins oral tablet 1 tablet, By Mouth, Daily, # 30 tablet, 0 Refills, Maintenance, 12/09/20 17:12:00 EDT, Tablet, [facility] #53920, 1 tablet By Mouth Daily, 167.64, cm, 11/22/20 15:34:00 EDT, Height, 63.64, kg, 10/30/20 11:22:00 EDT, Dry Weight Start Date: 12/09/20 Stop Date: 06/07/21 Status: Ordered Nutritional Supplements See Instructions, # 90 each, Refills 11, Tot. Refills 11, Maintenance, High Protein Ensure Use TID DX Pancreatitis, Weight Loss ICD 10 K85.90 R63.4 3 [place] 3 Vanilla Height 5'6 Weight 130lbs, 12/20/20 7:33:00 EDT, Supply Start Date: 12/20/20 Status: Ordered omeprazole 40 mg oral enteric coated capsule 1 capsule = 40 mg, By Mouth, Daily, # 30 capsule, 10 Refills, Maintenance, 04/22/20 13:08:00 EST, EC Capsule, [facility] #[id number], 168, cm, 04/22/20 12:49:00 EST, Height, 63.5, [...] mL, 0 Refills, Maintenance, 08/26/20 16:28:00 EDT, [facility] #[id number], Partial fill upon patient request if the prescription is for a schedule II opioid drug., 1 glass ever... Start Date: 08/26/20 Status: Ordered ProAir HFA 90 mcg/inh inhalation aerosol with adapter 2, puffs, Inhalation, Every 6 hours, PRN, # 8.5 Gm, Refills 5, Tot. Refills 5, Maintenance, 07/04/20 8:18:00 EST, Aerosol, Route to Pharmacy Electronically, [id number], [facility] #85872, 168, cm, 06/14/20 10:38:00... Start Date: 07/04/20 [...] 10/16/20 8:15:00 EDT, Route to Pharmacy Electronically, [facility] #[id number], Partial fill upon patient request, 168, cm, [...] Teds stockings bilateral legs, See Instructions, # 1 each, Refills 0, Tot. Refills 0, Maintenance, Teds stockings bilateral legs use as directed Length: Above knees Size F 1 pair black or h[place]go DX: Deep vein thrombosis Icd 10 I82.503 Length of ne... Start Date: 01/06/21 Status: Ordered traZODone 150 mg oral tablet 1 tablet, By Mouth, Daily at bedtime, PRN NEEDED FOR SLEEP, # 90 tablet, 1 Refills, Maintenance,10/16/20 8:15:00 EDT, [facility] #42885, 168, cm, 10/16/20 7:49:00 EDT, Height, 60, [...] 2019. 2Repeat EGD in 07/2020 for surveillance 71013; repeat 2019 4R shoulder 2017 5DrShabnam Choi (ENT surgeons) Social History Social History Type Response Smoking Status Current every day herve toney entered on: 12/17/15 Sex
--- OUTSIDE RECORDS SUMMARY | 2022-12-14 10:59 | XMS_ITS | Continuity of Care Document ---
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 Role Phone Casey Suarez MD Primary Care Physician [phone] [place] [facility] Date[place]s): 12/18/21 - 12/18/[address] [address]- Discharge Disposition: A-D/C Home Attending Physician: Evelio Santiago MD Admitting Physician: Evelio Santiago MD Referring Physician: Evelio Santiago MD Allergies, Adverse Reactions, Alerts Substance Reaction Severity Status amoxicillin heart racing Active Bee Stings anaphylactic Active acetaminophen-codeine ANAPHYLAXSIS Active Augmentin swelling of [...] [facility]# [address] [id number] 2Result Comment: Pt tolerated well. [facility] #[id number] 3Location History: [facility] 4Result Comment: [05/06/2017] [facility]:5890-8446-89 Medications aspirin 81 mg oral delayed release tablet 1 tablet, By Mouth, Daily, # 90 tablet, 0 Refills, [facility] #[id number], 167.6, cm, :54:00 EDT, Height, 63.6, kg, 09/22/21 9:54:00 EDT, Dry Weight Start Date: 10/10/21 Status: Ordered atorvastatin 80 mg oral tablet 1 tablet = 80 mg, By Mouth, Daily at bedtime, # 90 tablet, 3 Refills, Maintenance, 08/14/21 15:28:00 EDT, Tablet, [facility] #29027, 167.64, cm, 08/14/21 15:12:00 EDT, Height, 63.64, kg, 10/30/20 11:22:00 EDT, Dry Weight Start Date: 08/14/21 Stop Date: 08/09/22 Status: Ordered clopidogrel 75 mg oral tablet 75 mg, 1, tablet, By Mouth, Daily, # 30 tablet, Refills 11, Tot. Refills 11, Maintenance, 12/09/20 17:12:00 EDT, Route to Pharmacy Electronically, [facility] #26025, Partial fill upon patient request if the prescription is for a schedule II... Start Date: 12/09/20 Status: Ordered EpiPen 2-Sameer 0.3 mg injectable kit = 0.3 mg, Intramuscular, Once, Must go to hospital if used, # 1 each, 1 Refills, Soft Stop, 01/09/21 14:45:00 EDT, [facility] #[id number], 167.64, cm, 01/09/21 14:27:00 EDT, Height, 63.64, [...] Mouth, Daily, # 90 tablet, 1 Refills, [facility] #18324, 167.6, cm, :54:00 EDT, Height, 63.6, kg, 09/22/21 9:54:00 EDT, Dry Weight Start Date: 10/06/21 Status: Ordered multivitamin Multiple Vitamins oral tablet 1 tablet, By Mouth, Daily, # 90 tablet, 1 Refills, [facility] #64289, 90, TAKE 1 TABLET BY MOUTH DAILY, 167.64, cm, 04/21/21 13:13:00 EST, Height, 63.64, kg, 10/30/20 11:22:00 EDT, Dry Weight Start Date: 07/10/21 Status: Ordered Nutritional Supplements See Instructions, # 90 each, Refills 11, Tot. Refills 11, Maintenance, High Protein Ensure Use TID DX Pancreatitis, Weight Loss ICD 10 K85.90 R63.4 3 [place] 3 Vanilla Height 5'6 Weight 130lbs, 12/20/20 7:33:00 EDT, Supply Start Date: 12/20/20 Status: Ordered omeprazole 40 mg oral enteric coated capsule 1 capsule, By Mouth, Daily, # 30 capsule, 2 Refills, [facility] #62450, 167.6, cm, 11/06/21 15:13:00 EDT, Height, 63.6, kg, 09/22/21 9:54:00 EDT, Dry Weight Start Date: 12/10/21 Status: Ordered Paxlovid 150 mg-100 mg oral tablet See Instructions, follow package instructions, not renally impaired, # 30 tablet, 0 Refills, Maintenance, 09/23/21 15:45:00 EDT, [facility] #[id number], Partial fill upon patient request if the prescription is for a schedule II opioid drug., foll... Start Date: 09/23/21 Status: Ordered PEG-3350 with Electrolytes (Eqv-GoLYTELY) oral powder for reconstitution See Instructions, 1 glass every 15-30 minutes until finished, # 4,000 mL, 0 Refills, Maintenance, 08/26/20 16:28:00 EDT, [facility] #[id number], Partial fill upon patient request if the prescription is for a schedule II opioid drug., 1 glass ever... Start Date: 08/26/20 Status: Ordered ProAir HFA 90 mcg/inh inhalation aerosol with adapter 2, puffs, Inhalation, Every 6 hours, PRN, # 8.5 Gm, Refills 5, Tot. Refills 5, Maintenance, 07/04/20 8:18:00 EST, Aerosol, Route to Pharmacy Electronically, [id number], [facility] #48993, 168, cm, 06/14/20 10:38:00... Start Date: 07/04/20 [...] capsule, Refills 1, Route to Pharmacy Electronically, [facility] #21634, 167.6, cm, 09/22/21 9:54:00 EDT, Height, 63.6, [...] FOR SLEEP, # 90 tablet, 1 Refills, [facility] #16412, 167.6, cm, 09/22/21 9:54:00 EDT, Height, 63.6, [...] 2018. 2Repeat EGD in 07/2020 for surveillance 78591; repeat 2019 4R shoulder 2018 5DrShabnam Choi (ENT surgeons) Vital Signs Most recent to oldest [Reference Range]: 1 2 3 Weight 54.4 kg (12/18/21 10:58 AM) Oxygen Saturation [94-100 %] 95 % (12/18/21 1:45 PM) 95 % (12/18/21 1:30 PM) 96 % (12/18/21 1:15 PM) Pulse Rate [55-90 bpm] 54 bpm *L* (12/18/21 10:58 AM) Blood Pressure [90-138/55-84 mm Hg] 119/65mm Hg (12/18/21 1:45 PM) 98/46mm Hg (12/18/21 1:30 PM) 101/45mm Hg (12/18/21 1:15 PM) Respiratory Rate [16-30 br/min] 22 br/min (12/18/21 1:45 PM) 20 br/min (12/18/21 1:30 PM) 24 br/min (12/18/21 1:15 PM) Temperature [96.8-100.4 DegF] 97.7 DegF (12/18/21 1:45 PM) 98.4 DegF (12/18/21 1:15 PM) 98.2 DegF (12/18/21 10:58 AM) Mode of Delivery (Oxygen) Room air (12/18/21 2:24 PM) Room air (12/18/21 1:45 PM) Room air (12/18/21 1:30 PM) Blood pressure sites Arm, left (12/18/21 1:45 PM) Arm, left (12/18/21 1:30 PM) Arm, left (12/18/21 1:15 PM) Temperature Route Temporal (12/18/21 1:15 PM) Temporal (12/18/21 10:58 AM) Social History Social History Type Response Smoking Status Current every day herve toney entered on: 12/17/15 Sex
--- OUTSIDE RECORDS SUMMARY | 2022-12-14 10:59 | XMS_ITS | Continuity of Care Document ---
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 [facility] #[id number] 3Location History: [facility] 4Result Comment: [05/06/2017] [facility]:[id number] Medications aspirin 81 mg oral delayed release tablet 1 tablet, By Mouth, Daily, # 90 tablet, 0 Refills, [email or web address] #51208, 167.64, cm, 04/21/21 13:13:00 EST, Height, 63.64, kg, 10/30/20 11:22:00 EDT, Dry Weight Start Date: 07/11/21 Status: Ordered atorvastatin 80 mg oral tablet 1 tablet = 80 mg, By Mouth, Daily at bedtime, # 90 tablet, 3 Refills, Maintenance, 02/12/21 10:54:00 EDT, Tablet, [facility] #71240, 167.64, cm, 01/13/21 9:46:00 EDT, Height, 63.64, kg, 10/30/20 11:22:00 EDT, Dry Weight Start Date: 02/12/21 Stop Date: 02/07/22 Status: Ordered clopidogrel 75 mg oral tablet 75 mg, 1, tablet, By Mouth, Daily, # 30 tablet, Refills 11, Tot. Refills 11, Maintenance, 12/09/20 17:12:00 EDT, Route to Pharmacy Electronically, [facility] #32373, Partial fill upon patient request if the prescription is for a schedule II... Start Date: 12/09/20 Status: Ordered EpiPen 2-Samere 0.3 mg injectable kit = 0.3 mg, Intramuscular, Once, Must go to hospital if used, # 1 each, 1 Refills, Soft Stop, 01/09/21 14:45:00 EDT, [email or web address] #[id number], 167.64, cm, 01/09/21 14:27:00 EDT, Height, 63.64, [...] 01/13/21 9:59:00 EDT, Route to Pharmacy Electronically, [email or web address] #42038, Partial fill upon patient request if the prescription is for a schedule II opi... Start Date: 01/13/21 Status: Ordered multivitamin Multiple Vitamins oral tablet 1 tablet, By Mouth, Daily, # 90 tablet, 1 Refills, [email or web address] #60015, 90, TAKE 1 TABLET BY MOUTH DAILY, 167.64, cm, 04/21/21 13:13:00 EST, Height, 63.64, kg, 10/30/20 11:22:00 EDT, Dry Weight Start Date: 07/10/21 Status: Ordered Nutritional Supplements See Instructions, # 90 each, Refills 11, Tot. Refills 11, Maintenance, High Protein Ensure Use TID DX Pancreatitis, Weight Loss ICD 10 K85.90 R63.4 3 [place] 3 Vanilla Height 5'6 Weight 130lbs, 12/20/20 7:33:00 EDT, Supply Start Date: 12/20/20 Status: Ordered omeprazole 40 mg oral enteric coated capsule 1 capsule = 40 mg, By Mouth, Daily, # 30 capsule, 2 Refills, Maintenance, 01/14/21 14:05:00 EDT, ECCapsule, [email or web address] #62630, 167.64, cm, 01/13/21 9:46:00 EDT, Height, 63.64, kg, 10/30/2110:22:00 EDT, Dry Weight Start Date: 01/14/21 Stop Date: 04/14/21 Status: Ordered PEG-3350 with Electrolytes (Eqv-GoLYTELY) oral powder for reconstitution See Instructions, 1 glass every 15-30 minutes until finished, # 4,000 mL, 0 Refills, Maintenance, 08/26/20 16:28:00 EDT, [email or web address] #74006, Partial fill upon patient request if the prescription is for a schedule II opioid drug., 1 glass ever... Start Date: 08/26/20 Status: Ordered ProAir HFA 90 mcg/inh inhalation aerosol with adapter 2, puffs, Inhalation, Every 6 hours, PRN, # 8.5 Gm, Refills 5, Tot. Refills 5, Maintenance, 07/04/20 8:18:00 EST, Aerosol, Route to Pharmacy Electronically, [id number], [email or web address] #93968, 168, cm, 06/14/20 10:38:00... Start Date: 07/04/20 [...] capsule, Refills 1, Route to Pharmacy Electronically, [email or web address] #41367, 167.64, cm, 03/20/21 8:49:00 EDT, Height, 63.64, [...] FOR SLEEP, # 90 tablet, 1 Refills, [email or web address] #58675, 167.64, cm, 03/20/21 8:49:00 EDT, Height, 63.64, [...] 2019. 2Repeat EGD in 07/2020 for surveillance 06645; repeat 2019 4R shoulder 2018 5Dr. Jimbo (ENT surgeons) Social History Social History Type Response Smoking Status Current every day herve toney entered on: 12/17/15 Sex
--- OUTSIDE RECORDS SUMMARY | 2022-12-14 10:59 | XMS_ITS | Continuity of Care Document ---
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# [address] [id number] 2Result Comment: Pt tolerated well. [facility] #[id number] 3Location History: [facility] 4Result Comment: [05/06/2017] [facility]:4452-1310-89 Medications aspirin 81 mg oral delayed release tablet 1 tablet, By Mouth, Daily, # 90 tablet, 0 Refills, [facility] #15751, 167.6, cm, :54:00 EDT, Height, 63.6, kg, 09/22/21 9:54:00 EDT, Dry Weight Start Date: 10/10/21 Status: Ordered atorvastatin 80 mg oral tablet 1 tablet = 80 mg, By Mouth, Daily at bedtime, # 90 tablet, 3 Refills, Maintenance, 08/14/21 15:28:00 EDT, Tablet, [facility] #[id number], 167.64, cm, 08/14/21 15:12:00 EDT, Height, 63.64, kg, 10/30/20 11:22:00 EDT, Dry Weight Start Date: 08/14/21 Stop Date: 08/09/22 Status: Ordered clopidogrel 75 mg oral tablet 75 mg, 1, tablet, By Mouth, Daily, # 30 tablet, Refills 11, Tot. Refills 11, Maintenance, 12/09/20 17:12:00 EDT, Route to Pharmacy Electronically, [facility] #[id number], Partial fill upon patient request if the prescription is for a schedule II... Start Date: 12/09/20 Status: Ordered EpiPen 2-Sameer 0.3 mg injectable kit = 0.3 mg, Intramuscular, Once, Must go to hospital if used, # 1 each, 1 Refills, Soft Stop, 01/09/21 14:45:00 EDT, [facility] #[id number], 167.64, cm, 01/09/21 14:27:00 EDT, Height, 63.64, [...] Mouth, Daily, # 90 tablet, 1 Refills, [facility] #72953, 167.6, cm, :54:00 EDT, Height, 63.6, kg, 09/22/21 9:54:00 EDT, Dry Weight Start Date: 10/06/21 Status: Ordered multivitamin Multiple Vitamins oral tablet 1 tablet, By Mouth, Daily, # 90 tablet, 1 Refills, [facility] #44055, 90, TAKE 1 TABLET BY MOUTH DAILY, 167.64, cm, 04/21/21 13:13:00 EST, Height, 63.64, kg, 10/30/20 11:22:00 EDT, Dry Weight Start Date: 07/10/21 Status: Ordered Nutritional Supplements See Instructions, # 90 each, Refills 11, Tot. Refills 11, Maintenance, High Protein Ensure Use TID DX Pancreatitis, Weight Loss ICD 10 K85.90 R63.4 3 [place] 3 Vanilla Height 5'6 Weight 130lbs, 12/20/20 7:33:00 EDT, Supply Start Date: 12/20/20 Status: Ordered omeprazole 40 mg oral enteric coated capsule 1 capsule = 40 mg, By Mouth, Daily, # 30 capsule, 2 Refills, Maintenance, 09/10/21 14:25:00 EDT, ECCapsule, [facility] #77898, 167.64, cm, 09/01/21 8:31:00 EDT, Height, 63.64, kg, 10/30/2110:22:00 EDT, Dry Weight Start Date: 09/10/21 Stop Date: 12/09/21 Status: Ordered Paxlovid 150 mg-100 mg oral tablet See Instructions, follow package instructions, not renally impaired, # 30 tablet, 0 Refills, Maintenance, 09/23/21 15:45:00 EDT, [facility] #56687, Partial fill upon patient request if the prescription is for a schedule II opioid drug., foll... Start Date: 09/23/21 Status: Ordered PEG-3350 with Electrolytes (Eqv-GoLYTELY) oral powder for reconstitution See Instructions, 1 glass every 15-30 minutes until finished, # 4,000 mL, 0 Refills, Maintenance, 08/26/20 16:28:00 EDT, [facility] #95044, Partial fill upon patient request if the prescription is for a schedule II opioid drug., 1 glass ever... Start Date: 08/26/20 Status: Ordered ProAir HFA 90 mcg/inh inhalation aerosol with adapter 2, puffs, Inhalation, Every 6 hours, PRN, # 8.5 Gm, Refills 5, Tot. Refills 5, Maintenance, 07/04/20 8:18:00 EST, Aerosol, Route to Pharmacy Electronically, [id number], [facility] #75851, 168, cm, 06/14/20 10:38:00... Start Date: 07/04/20 [...] capsule, Refills 1, Route to Pharmacy Electronically, [facility] #37772, 167.6, cm, 09/22/21 9:54:00 EDT, Height, 63.6, [...] FOR SLEEP, # 90 tablet, 1 Refills, [facility] #51126, 167.6, cm, 09/22/21 9:54:00 EDT, Height, 63.6, [...] 2018. 2Repeat EGD in 07/2020 for surveillance 06073; repeat 2019 4R shoulder 2018 5Dr. Jimbo (ENT surgeons) Social History Social History Type Response Smoking Status Current every day herve toney entered on: 12/17/15 Sex
--- OUTSIDE RECORDS SUMMARY | 2022-12-14 10:59 | XMS_ITS | Continuity of Care Document ---
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 [facility] #[id number] 2Location History: [place] 3Result Comment: [05/06/2017] [facility]:8807-9626-18 Medications albuterol 0.083% inhalation solution 3 mL = 2.5 mg, Inhalation, Every 6 hours, # 120 each, 2 Refills, Maintenance, 04/30/20 11:23:00 EST, Solution, [facility] #[id number], 168, cm, 04/30/20 11:04:00 EST, Height, 63.5, kg, 08/07/19 9:46:00 EDT, Dry Weight Start Date: 04/30/20 Status: Ordered Creon 36,000 units oral delayed release capsule 1 capsule, By Mouth, 3 times a day, with each meal, # 90 capsule, 3 Refills, Maintenance, 08/07/19 11:39:00 EDT, [facility] #57737, 1 capsule By Mouth 3 times a day,Instr:with each meal, 168, cm, 08/07/19 9:46:00 EDT, Height, 63.5, kg, 08/06... Start Date: 08/07/19 Status: Ordered ENSURE/VANILLA ENSURE/VANILLA, See Instructions, # 6 pack/packet, Refills 11, Tot. Refills 11, Maintenance, EnsureMax Protein Formula TID DX Pancreatitis Weight Loss 3 [place] 1 Vanilla, 06/25/20 9:20:00 EST, Compound Start [...] 04/22/20 13:38:00 EST, Route to Pharmacy Electronically, [facility] #[id number], Partial fill upon patient request, 168, cm, [...] 5 Refills, Maintenance, 04/22/20 13:08:00 EST, Tablet, [facility] #98062, 1 tablet By Mouth Daily,x30 days, 168, cm, 04/22/20 12:49:00 EST, Height, 63.5, kg, 08/07/19 9:46:00 EDT, Dry Weight Start Date: 04/22/20 Stop Date: 10/19/20 Status: Ordered omeprazole 40 mg oral enteric coated capsule 1 capsule = 40 mg, By Mouth, Daily, # 30 capsule, 10 Refills, Maintenance, 04/22/20 13:08:00 EST, EC Capsule, [facility] #30903, 168, cm, 04/22/20 12:49:00 EST, Height, 63.5, [...] 8:18:00 EST, Aerosol, Route to Pharmacy Electronically, [id number], [facility] #94004, 168, cm, 06/14/20 10:38:00... Start Date: 07/04/20 Status: Ordered tamsulosin 0.4 mg oral capsule 0.4 mg, 1, capsule, By Mouth, Daily, PER BELL HODGES, # 90 capsule, Refills 1, Tot. Refills 1, Maintenance, 04/29/20 16:06:00 EST, Route to Pharmacy Electronically, [facility] #[id number],Partial fill upon patient request, 168, cm, ... Start Date: 04/29/20 Status: Ordered tiZANidine 4 mg oral capsule 2 capsule = 8 mg, By Mouth, 3 times a day, 0 Refills, Maintenance, 10/13/19 10:32:00 EDT Start Date: 10/13/19 Status: Ordered traZODone 150 mg oral tablet 1 tablet, By Mouth, Daily at bedtime, PRN NEEDED FOR SLEEP, # 30 tablet, 5 Refills, Maintenance,04/22/20 13:08:00 EST, [facility] #79778, 168, cm, 04/22/20 12:49:00 EST, Height, 63.5, [...] 2019. 2Repeat EGD in 07/2020 for surveillance 67879; repeat 2019 4R shoulder 2018 5DrShabnam Choi (ENT surgeons) Social History Social History Type Response Smoking Status Current every day herve toney entered on: 12/17/15 Sex
--- OUTSIDE RECORDS SUMMARY | 2022-12-14 10:59 | XMS_ITS | Continuity of Care Document ---
Author Name Unknown Organization [facility] [place] [facility] Address [address] [place] [address]- Care Team Providers Care Assisted Living Director Name Role Phone Casey Suarez MD Primary Care Physician [facility]counter [facility] Date(s): 06/13/20 - 07/13/20 [facility] [place] Adult [address] [place] [address]- Allergies, Adverse Reactions, Alerts Substance Reaction Severity [...] Guardian Refuses 1Result Comment: Pt tolerated well. [facility] #[id number] 2Location History: [facility] 3Result Comment: [05/06/2017] [facility]:[id number] Medications albuterol 0.083% inhalation solution 3 mL = 2.5 mg, Inhalation, Every 6 hours, # 120 each, 2 Refills, Maintenance, 04/30/20 11:23:00 EST, Solution, [facility] #[id number], 168, cm, 04/30/20 11:04:00 EST, Height, 63.5, kg, 08/07/19 9:46:00 EDT, Dry Weight Start Date: 04/30/20 Status: Ordered Creon 36,000 units oral delayed release capsule 1 capsule, By Mouth, 3 times a day, with each meal, # 90 capsule, 3 Refills, Maintenance, 08/07/19 11:39:00 EDT, [facility] #[id number], 1 capsule By Mouth 3 times a day,Instr:with each meal, 168, cm, 08/07/19 9:46:00 EDT, Height, 63.5, kg, 08/06... Start Date: 08/07/19 Status: Ordered ENSURE/VANILLA ENSURE/VANILLA, See Instructions, # 6 pack/packet, Refills 11, Tot. Refills 11, Maintenance, EnsureMax Protein Formula TID DX Pancreatitis Weight Loss 3 [place] 1 Vanilla, 06/25/20 9:20:00 EST, Compound Start [...] 04/22/20 13:38:00 EST, Route to Pharmacy Electronically, [facility] #[id number], Partial fill upon patient request, 168, cm, [...] 5 Refills, Maintenance, 04/22/20 13:08:00 EST, Tablet, [facility] #[id number], 1 tablet By Mouth Daily,x30 days, 168, cm, 04/22/20 12:49:00 EST, Height, 63.5, kg, 08/07/19 9:46:00 EDT, Dry Weight Start Date: 04/22/20 Stop Date: 10/19/20 Status: Ordered omeprazole 40 mg oral enteric coated capsule 1 capsule = 40 mg, By Mouth, Daily, # 30 capsule, 10 Refills, Maintenance, 04/22/20 13:08:00 EST, EC Capsule, [facility] #[id number], 168, cm, 04/22/20 12:49:00 EST, Height, 63.5, [...] Date: 09/22/20 Stop Date: 10/22/20 Status: Ordered Pedialyte oral solution Drink ad antonio, By Mouth, Daily, PRN as needed for dehydration, for 30 days, 1 TID dx dehydration, # 1,000 mL, 0 Refills, Hard Stop 07/24/20 11:31:00 EST, 06/24/20 11:31:00 EST, [facility] #[id number], Partial fill upon patient request if the pres... Start Date: 06/24/20 Stop Date: 07/24/20 Status: Ordered PORTABLE NEBULIZER WITH ALL SUPPLIES. [...] 8:18:00 EST, Aerosol, Route to Pharmacy Electronically, [id number], [facility] #[id number], 168, cm, 06/14/20 10:38:00... Start Date: 07/04/20 Status: Ordered tamsulosin 0.4 mg oral capsule 0.4 mg, 1, capsule, By Mouth, Daily, PER BELL HODGES, # 90 capsule, Refills 1, Tot. Refills 1, Maintenance, 04/29/20 16:06:00 EST, Route to Pharmacy Electronically, [facility] #[id number],Partial fill upon patient request, 168, cm, ... Start Date: 04/29/20 Status: Ordered tiZANidine 4 mg oral capsule 2 capsule = 8 mg, By Mouth, 3 times a day, 0 Refills, Maintenance, 10/13/19 10:32:00 EDT Start Date: 10/13/19 Status: Ordered traZODone 150 mg oral tablet 1 tablet, By Mouth, Daily at bedtime, PRN NEEDED FOR SLEEP, # 30 tablet, 5 Refills, Maintenance,04/22/20 13:08:00 EST, [facility] #[id number], 168, cm, 04/22/20 12:49:00 EST, Height, 63.5, [...] 2018. 2Repeat EGD in 07/2020 for surveillance 51180; repeat 2019 4R shoulder 2018 5DrShabnam Choi (ENT surgeons) Social History Social History Type Response Smoking Status Current every day herve toney entered on: 12/17/15 Sex
--- OUTSIDE RECORDS SUMMARY | 2022-12-14 10:59 | XMS_ITS | Continuity of Care Document ---
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 [facility] #[id number] 2Location History: [facility] 3Result Comment: [05/06/2017] [facility]:[id number] Medications amiodarone 200 mg oral tablet 200 mg, 1, tablet, By Mouth, 2 times a day, # 60 tablet, Refills 0, Tot. Refills 0, Maintenance, 11/13/20 9:34:00 EDT, Route to Pharmacy Electronically, [facility], Partial fill upon patient request if the prescription is for a schedule... Start Date: 11/13/20 Status: Ordered aspirin 81 mg oral delayed release tablet 81 mg, 1, tablet, By Mouth, Daily, # 90 tablet, Refills 1, Tot. Refills 1, Maintenance, 01/09/21 14:52:00 EDT, Route to Pharmacy Electronically, [facility] #[id number], Partial fill upon patientrequest if the prescription is for a schedule II op... Start Date: 01/09/21 Status: Ordered atorvastatin 80 mg oral tablet 1 tablet = 80 mg, By Mouth, Daily at bedtime, # 90 tablet, 4 Refills, Maintenance, 01/09/21 14:44:00 EDT, Tablet, [facility] #[id number], Partial fill upon patient request if the prescription isfor a schedule II opioid drug., 167.64, cm, ... Start Date: 01/09/21 Stop Date: 04/04/22 Status: Ordered clopidogrel 75 mg oral tablet 75 mg, 1, tablet, By Mouth, Daily, # 30 tablet, Refills 11, Tot. Refills 11, Maintenance, 12/09/20 17:12:00 EDT, Route to Pharmacy Electronically, [facility] #[id number], Partial fill upon patient request if the prescription is for a schedule II... Start Date: 12/09/20 Status: Ordered EpiPen 2-Sameer 0.3 mg injectable kit = 0.3 mg, Intramuscular, Once, Must go to hospital if used, # 1 each, 1 Refills, Soft Stop, 01/09/21 14:45:00 EDT, [facility] #[id number], 167.64, cm, 01/09/21 14:27:00 EDT, Height, 63.64, [...] 1 Refills, Maintenance, 01/09/21 14:44:00 EDT, Tablet, [facility] #[id number], 1 tablet By Mouth Daily, 167.64, cm, 01/09/21 14:27:00 EDT, Height, 63.64, kg, 10/30/20 11:22:00 EDT, Dry Weight Start Date: 01/09/21 Status: Ordered Nutritional Supplements See Instructions, # 90 each, Refills 11, Tot. Refills 11, Maintenance, High Protein Ensure Use TID DX Pancreatitis, Weight Loss ICD 10 K85.90 R63.4 3 [place] 3 Vanilla Height 5'6 Weight 130lbs, 12/20/20 7:33:00 EDT, Supply Start Date: 12/20/20 Status: Ordered omeprazole 40 mg oral enteric coated capsule 1 capsule = 40 mg, By Mouth, Daily, # 30 capsule, 10 Refills, Maintenance, 04/22/20 13:08:00 EST, EC Capsule, [facility] #[id number], 168, cm, 04/22/20 12:49:00 EST, Height, 63.5, [...] mL, 0 Refills, Maintenance, 08/26/20 16:28:00 EDT, [facility] #[id number], Partial fill upon patient request if the prescription is for a schedule II opioid drug., 1 glass ever... Start Date: 08/26/20 Status: Ordered ProAir HFA 90 mcg/inh inhalation aerosol with adapter 2, puffs, Inhalation, Every 6 hours, PRN, # 8.5 Gm, Refills 5, Tot. Refills 5, Maintenance, 07/04/20 8:18:00 EST, Aerosol, Route to Pharmacy Electronically, [id number], [facility] #[id number], 168, cm, 06/14/20 10:38:00... Start Date: 07/04/20 [...] 10/16/20 8:15:00 EDT, Route to Pharmacy Electronically, [facility] #[id number], Partial fill upon patient request, 168, cm, [...] 90 tablet, 1 Refills, Maintenance,10/16/20 8:15:00 EDT, [facility] #[id number], 168, cm, 10/16/20 7:49:00 EDT, Height, 60, [...] 2019. 2Repeat EGD in 07/2020 for surveillance 39006; repeat 2019 4R shoulder 2018 5DrShabnam Choi (ENT surgeons) Social History Social History Type Response Smoking Status Current every day herve toney entered on: 12/17/15 Sex"
--- OUTSIDE RECORDS SUMMARY | 2022-12-14 10:59 | XMS_ITS | Continuity of Care Document ---
Author Name Unknown Organization [facility] [place] [facility] Address [address] [place] [address]- Care Team Providers Care Environment Artist Name Role Phone Casey Suarez MD Primary Care Physician [facility]counter [facility] Date(s): 05/13/20 - 06/12/20 [facility] Adult [address] [place] [address]- Allergies, Adverse Reactions, Alerts Substance Reaction Severity [...] Refuses 1Result Comment: Pt tolerated well. [facility] #[id number] 2Location History: [place] 3Result Comment: [05/06/2017] [facility]:[id number] Medications albuterol 0.083% inhalation solution 3 mL = 2.5 mg, Inhalation, Every 6 hours, # 120 each, 2 Refills, Maintenance, 04/30/20 11:23:00 EST, Solution, [facility] #[id number], 168, cm, 04/30/20 11:04:00 EST, Height, 63.5, [...] Refills, Soft Stop, 05/03/20 16:00:00 EST, Tablet, [facility] #[id number], Partial fill upon patient request if the prescription is for a schedule IIopioid drug., 168, cm, 04/30/20 11:04:00 EST, Heigh... Start Date: 05/03/20 Status: Ordered Creon 36,000 units oral delayed release capsule 1 capsule, By Mouth, 3 times a day, with each meal, # 90 capsule, 3 Refills, Maintenance, 08/07/19 11:39:00 EDT, [facility] #[id number], 1 capsule By Mouth 3 times a day,Instr:with each meal, 168, cm, 08/07/19 9:46:00 EDT, Height, 63.5, kg, 08/06... Start Date: 08/07/19 Status: Ordered Crestor 40 mg oral tablet 1 tablet = 40 mg, By Mouth, Daily, # 90 tablet, 3 Refills, Maintenance, 04/22/20 13:08:00 EST, Tablet, [facility] #[id number], 168, cm, 04/22/20 12:49:00 EST, Height, 63.5, [...] 04/22/20 13:38:00 EST, Route to Pharmacy Electronically, [facility] #[id number], Partial fill upon patient request, 168, cm, [...] 5 Refills, Maintenance, 04/22/20 13:08:00 EST, Tablet, [facility] #[id number], 1 tablet By Mouth Daily,x30 days, 168, cm, 04/22/20 12:49:00 EST, Height, 63.5, kg, 08/07/19 9:46:00 EDT, Dry Weight Start Date: 04/22/20 Stop Date: 10/19/20 Status: Ordered omeprazole 40 mg oral enteric coated capsule 1 capsule = 40 mg, By Mouth, Daily, # 30 capsule, 10 Refills, Maintenance, 04/22/20 13:08:00 EST, EC Capsule, [facility] #[id number], 168, cm, 04/22/20 12:49:00 EST, Height, 63.5, [...] tablet, 0 Refills, Maintenance, 05/03/20 16:00:00 EST, [facility] #[id number], Partial fill upon patient request if the prescription is for a schedule II opioid... Start Date: 05/03/20 Status: Ordered ProAir HFA 90 mcg/inh inhalation aerosol with adapter 2, puffs, Inhalation, Every 6 hours, PRN, # 8.5 Gm, Refills 2, Tot. Refills 2, Maintenance, 04/22/20 13:08:00 EST, Aerosol, Route to Pharmacy Electronically, [id number], [facility] #[id number], 168, cm, 04/22/20 12:49:00... Start Date: 04/22/20 Status: Ordered tamsulosin 0.4 mg oral capsule 0.4 mg, 1, capsule, By Mouth, Daily, PER BELL HODGES, # 90 capsule, Refills 1, Tot. Refills 1, Maintenance, 04/29/20 16:06:00 EST, Route to Pharmacy Electronically, [facility] #[id number],Partial fill upon patient request, 168, cm, ... Start Date: 04/29/20 Status: Ordered tiZANidine 4 mg oral capsule 2 capsule = 8 mg, By Mouth, 3 times a day, 0 Refills, Maintenance, 10/13/19 10:32:00 EDT Start Date: 10/13/19 Status: Ordered traZODone 150 mg oral tablet 1 tablet, By Mouth, Daily at bedtime, PRN NEEDED FOR SLEEP, # 30 tablet, 5 Refills, Maintenance,04/22/20 13:08:00 EST, [facility] #[id number], 168, cm, 04/22/20 12:49:00 EST, Height, 63.5, [...] 2018. 2Repeat EGD in 07/2020 for surveillance 91117; repeat 2019 4R shoulder 2017 5Dr. Jimbo (ENT surgeons) Social History Social History Type Response Smoking Status Current every day herve toney entered on: 12/17/15 Sex
--- OUTSIDE RECORDS SUMMARY | 2022-12-14 10:59 | XMS_ITS | Continuity of Care Document ---
Author Name Unknown Organization [facility] ter Address [address] [place] [id number] Care Team Providers Care Spouting Installer Name Role Phone Casey Suarez MD Primary Care Physician Encounter [facility] Date(s): 11/08/20 - 11/13/[address] [address] Discharge Disposition: A-D/C Home Attending Physician: Edis Joy MD Admitting Physician: Edis Joy MD Referring Physician: Edis Joy MD Allergies, Adverse Reactions, Alerts Substance Reaction [...] Refuses 1Result Comment: Pt tolerated well. [facility] #[id number] 2Location History: [facility] 3Result Comment: [05/06/2017] [facility]:[id number] Medications amiodarone 200 mg oral tablet 200 mg, 1, tablet, By Mouth, 2 times a day, # 60 tablet, Refills 0, Tot. Refills 0, Maintenance, 11/13/20 9:34:00 EDT, Route to Pharmacy Electronically, [facility], Partial fill upon patient request if the prescription is for a schedule... Start Date: 11/13/20 Status: Ordered aspirin 81 mg oral delayed release tablet 81 mg, By Mouth, Daily, # 30 tablet, Refills 0, Tot. Refills 0, Maintenance, 11/13/20 9:32:00 EDT, Route to Pharmacy Electronically, [facility], Partial fill upon patient request if theprescription is for a schedule II opioid drug., 167... Start Date: 11/13/20 Stop Date: 12/13/20 Status: Ordered atorvastatin 80 mg oral tablet 1 tablet = 80 mg, By Mouth, Daily at bedtime, # 30 tablet, 0 Refills, Maintenance, 11/13/20 9:34:00EDT, Tablet, [facility], Partial fill upon patient request if the prescription is fora schedule II opioid drug., 167.64, cm, 11/13/20 6:... Start Date: 11/13/20 Status: Ordered clopidogrel 75 mg oral tablet 75 mg, 1, tablet, By Mouth, Daily, # 30 tablet, Refills 0, Tot. Refills 0, Maintenance, 11/13/20 9:34:00 EDT, Route to Pharmacy Electronically, [facility], Partial fill upon patient request if the prescription is for a schedule II opioid... Start Date: 11/13/20 Status: Ordered docusate sodium 100 mg oral tablet = 100 mg, By Mouth, 2 times a day, # 6 tablet, 0 Refills, Maintenance, 11/13/20 9:34:00 EDT, Tablet, [facility], Partial fill upon patient request if [...] gabapentin 300 mg oral capsule 300 mg, Capsule, By Mouth, 11/13/20 9:00:00 EDT Start Date: 11/13/20 Stop Date: 11/13/20 Status: Completed gabapentin 300 mg oral capsule 300 mg, 1, capsule, By Mouth, 3 times a day, # 90 capsule, Refills 6, Tot. Refills 6, Maintenance, 11/13/20 9:32:00 EDT, Route to Pharmacy Electronically, [facility], Partial fill upon patient request, 167.64, cm, 11/13/20 6:08:00 EDT, H... Start Date: 11/13/20 Stop Date: 06/11/21 Status: Ordered metoprolol 50 mg oral tablet 50 mg, 1, tablet, By Mouth, 2 times a day, # 60 tablet, Refills 0, Tot. Refills 0, Maintenance, 11/13/20 9:33:00 EDT, Route to Pharmacy Electronically, [facility], Partial fill upon patient request if the prescription is for a schedule I... Start Date: 11/13/20 Stop Date: 12/13/20 Status: Ordered Metoprolol IR Tablet 50 mg, Tablet, By Mouth, HOLD for HR less than 70 or SBP less than 100 or if on Vasopressors, 11/13/20 9:00:00 EDT Start Date: 11/13/20 Stop Date: 11/13/20 Status: Completed multivitamin Multiple Vitamins oral tablet 1 tablet, By Mouth, Daily, # 30 tablet, 5 Refills, Maintenance, 04/22/20 13:08:00 EST, Tablet, [facility] #[id number], 1 tablet By Mouth Daily,x30 days, 168, cm, 04/22/20 12:49:00 EST, Height, 63.5, kg, 08/07/19 9:46:00 EDT, Dry Weight Start Date: 04/22/20 Stop Date: 10/19/20 Status: Ordered Nicoderm C-Q Clear 14 mg/24 hr transdermal film, extended release 1 patch, Topically, Daily, for 14 days, # 14 patch, 0 Refills, Acute 11/27/20 9:35:00 EDT, :35:00 EDT, Patch, [facility], Partial fill upon patient request if the prescriptionis for a schedule II opioid drug., 167.64, cm, 10/29... Start Date: 11/13/20 Stop Date: 11/27/20 Status: Ordered omeprazole 40 mg oral enteric coated capsule 1 capsule = 40 mg, By Mouth, Daily, # 30 capsule, 10 Refills, Maintenance, 04/22/20 13:08:00 EST, EC Capsule, [facility] #[id number], 168, cm, 04/22/20 12:49:00 EST, Height, 63.5, kg, 08/07/19 9:46:00 EDT, Dry Weight Start Date: 04/22/20 Stop Date: 03/18/21 Status: Ordered oxyCODONE 5 mg oral tablet 5 mg, 1, tablet, By Mouth, Every 6 hours, PRN, for 3 days, Do NOT take in conjucture with vicodin.,# 18 tablet, Refills 0, Tot. Refills 0, Acute 11/16/20 9:35:00 EDT, Pain , Moderate, 11/13/20 9:35:00 EDT, Route to Pharmacy Electronically, [facility]... Start Date: 11/13/20 Stop Date: 11/16/20 Status: Ordered OxyCODONE IR Tablet 15 mg, Tablet, By Mouth, Every 4 hours, (for use after extubation), PRN for Pain , Severe, Routine,11/08/20 16:49:00 EDT Start Date: 11/08/20 Stop Date: 11/13/20 Status: Discontinued PEG-3350 with Electrolytes (Eqv-GoLYTELY) oral powder for reconstitution See Instructions, 1 glass every 15-30 minutes until finished, # 4,000 mL, 0 Refills, Maintenance, 08/26/20 16:28:00 EDT, [facility] #[id number], Partial fill upon patient request if the prescription is for a schedule II opioid drug., 1 glass ever... Start Date: 08/26/20 Status: Ordered ProAir HFA 90 mcg/inh inhalation aerosol with adapter 2, puffs, Inhalation, Every 6 hours, PRN, # 8.5 Gm, Refills 5, Tot. Refills 5, Maintenance, 07/04/20 8:18:00 EST, Aerosol, Route to Pharmacy Electronically, [id number], [facility] #[id number], 168, cm, 06/14/20 10:38:00... Start Date: 07/04/20 Status: Ordered Senna 8.6 mg oral tablet 8.6 mg, 1, tablet, By Mouth, Daily, for 7 days, # 7 tablet, Refills 0, Tot. Refills 0, Acute, 11/20/20 9:36:00 EDT, 11/13/20 9:36:00 EDT, Route to Pharmacy Electronically, [facility] Tablet, Partial fill upon patient request if the presc... Start Date: 11/13/20 Stop Date: 11/20/20 Status: Ordered tamsulosin 0.4 mg oral capsule 0.4 mg, 1, capsule, By Mouth, Daily, PER BELL HODGES, # 90 capsule, Refills 1, Tot. Refills 1, Maintenance, 10/16/20 8:15:00 EDT, Route to Pharmacy Electronically, [facility] #[id number], Partial fill upon patient request, 168, cm, 10/16/20... Start Date: 10/16/20 Status: Ordered traZODone 150 mg oral tablet 1 tablet, By Mouth, Daily at bedtime, PRN NEEDED FOR SLEEP, # 90 tablet, 1 Refills, Maintenance,10/16/20 8:15:00 EDT, [facility] #[id number], 168, cm, 10/16/20 7:49:00 EDT, Height, 60, kg, 10/16/20 7:49:00 EDT, Dry Weight Start Date: 10/16/20 Stop Date: 04/14/21 Status: Ordered Tylenol 325 mg oral tablet 975 mg, 3, tablet, By Mouth, 2 times a day, for 14 days, # 84 tablet, Refills 0, Tot. Refills 0, Acute 11/27/20 9:33:00 EDT, 11/13/20 9:33:00 EDT, Route to Pharmacy Electronically, [facility], Partial fill upon patient request if the pre... Start Date: 11/13/20 Stop Date: 11/27/20 Status: Ordered Vicodin 5/500 Tablet By Mouth, [...] 2019. 2Repeat EGD in 07/2020 for surveillance 03208; repeat 2019 4R shoulder 2018 5Dr. Jimbo (ENT surgeons) Results Radiology Reports * Exam Date Time Procedure Performing Provider Status 11/12/20 4:58 PM Chest Portable Eliazar Tsai; Anali (Verified) Notes: (Chest Portable) Reason For Exam: tube removal;Other: RESULT: Chest Portable AP upright portable chest dated November 12, 2020 at 1643 hours. Comparison films are from November 10 and November 09, 2020. HISTORY: Tube removal. FINDINGS: The cardiac silhouette is within normal limits for size. The patient is status post median sternotomy. Since the previous study, a central venous line introducer sheath in the right has been removed. There is no evidence of pneumothorax. The right lung is clear. The left lung shows improved atelectasis at the left lung base. Degenerative changes are noted in the spine and shoulders. IMPRESSION: Status post removal of a right-sided central venous line. No evidence of pneumothorax. Improving aeration at the left lung base. Examination 22612. Thank you for allowing me to participate in the care of this patient. WSN: [id number] Ordering Physician: Sharlene Makrs Dictated By: Lan Amos MD Dictated Date/Time: 11/12/20 5:12 pm Reviewed By: Lan Amos MD Signed By: Lan Amos MD Signed Date/Time: 11/12/20 5:12 pm Transcribed By: CLAU Transcribed Date/Time: 11/12/20 5:11 pm * Exam Date Time Procedure Performing Provider Status 11/10/20 7:04 AM Chest Portable Charlotte Victor; Auth (V erified) Notes: (Chest Portable) Reason For Exam: S/P Cardiac Surgery RESULT: Chest Portable Chest Portable Reason: S /P Cardiac Surgery; Clinical Question(s): Pleural Effusion COMPARISON: November 09, 2020 at 5:10 AM FINDINGS: LINES AND TUBES: 2 mediastinal chest tubes are stable. The Stephen[place]-Dane catheter has been removed. Large bore right internal jugular central venous line has its tip overlying the proximal SVC. LUNGS AND PLEURA: Patchy left basilar and perihilar opacity, probably atelectasis. No pleural effusion. No pneumothorax. HEART, MEDIASTINUM AND MANDA: Heart is normal in size. Normal upper mediastinal and hilar contour. BONES AND SOFT TISSUES: No acute abnormality. IMPRESSION: Left perihilar and basilar atelectasis. WSN: [id number] Ordering Physician: Sofía Todd Dictated By: Emmanuel Howe MD Dictated Date/Time: 11/10/20 11:01 a Reviewed By: Emmanuel Howe MD Signed By: Emmanuel Howe MD Signed Date/Time: 11/10/20 11:01 am Transcribed By: CLAU Transcribed Date/Time: 11/10/20 10:59 am * Exam Date Time Procedure Performing Provider Status 11/09/20 5:44 AM Chest Portable Lewis Luiz (V erified) Notes: (Chest Portable) Reason For Exam: S/P Cardiac Surgery RESULT: Chest Portable Chest Portable Reason: S P Cardiac Surgery; Clinical Question(s): Postop COMPARISON: 11/08/2020 FINDINGS: LINES AND TUBES: Right IJ Stephen[place]-Dane catheter terminates in the main pulmonary artery. 2 mediastinal chest tubes are visualized. LUNGS AND PLEURA: Hazy left perihilar opacity, probably atelectasis. No pleural effusion. No pneumothorax. HEART, MEDIASTINUM AND MANDA: Heart is normal in size. Normal upper mediastinal and hilar contour. BONES AND SOFT TISSUES: No acute abnormality. IMPRESSION: Left perihilar opacity probably reflects atelectasis. WSN: [id number] Ordering Physician: Tammy Perez Dictated By: Amy Taylor MD Dictated Date/Time: 11/09/20 12:04 p Reviewed By: Amy Taylor MD Signed By: Amy Taylor MD Signed Date/Time: 11/09/20 12:04 pm Transcribed By: CLAU Transcribed Date/Time: 11/09/20 12:03 pm * Exam Date Time Procedure Performing Provider Status 11/08/20 6:29 PM Chest Portable Mary Lou Browning (Verified) Notes: (Chest Portable) Reason For Exam: S/P Cardiac Surgery RESULT: Chest Portable AP supine portable chest dated November 08, 2020 1820 hours. Comparison films are from August 17, 2020. HISTORY: Status post cardiac surgery. FINDINGS: The cardiac silhouette is within normal limits for size. An endotracheal tube is present 6.2 cm proximal to the cate. A nasogastric tube extends into the left upper quadrant. The tip is distal to the EG junction region. The sidehole is at the level of the EG junction. This could be advanced 3 to 4 cm for more optimal positioning. A Stephenville-Dane catheter is present from the right. Using ajugular approach, the tip of the catheter overlies the distal aspect of the pulmonary outflow tract. A mediastinal drain and left-sided chest tube are present. The chest tube courses superiorly and then turns downward laterally terminating at the level of the left main pulmonary artery. No pneumothorax is identified. No airspace infiltrate is seen. The patient is status post median sternotomy. IMPRESSION: Endotracheal tube, nasogastric tube, Stephenville-Dane catheter, mediastinal drain, and chest tube in placeas described above. No evidence of acute pulmonary disease. Examination 86735. Thank you for allowing me to participate in the care of this patient. WSN: [id number] Ordering Physician: Eliecer Jackson Dictated By: Lan Amos MD Dictated Date/Time: 11/08/20 6:33 pm Reviewed By: Lan Amos MD Signed By: Lan Amos MD Signed Date/Time: 11/08/20 6:33 pm Transcribed By: CLAU Transcribed Date/Time: 11/08/20 6:31 pm Vital Signs Most recent to oldest [Reference Range]: 1 2 3 Height 167.64 cm (11/13/20 6:08 AM) 167.64 cm (11/13/20 5:45 AM) 167.64 cm (11/12/20 10:51 PM) Weight 62.7 kg (11/13/20 5:45 AM) 62 kg (11/12/20 4:55 AM) 62.2 kg (11/11/20 7:04 AM) Oxygen Saturation [94-100 %] 95 % (11/13/20 8:00 AM) 93 % *L* (11/13/20 5:45 AM) 96 % (11/12/20 10:51 PM) Pulse Rate [55-90 bpm] 79 bpm (11/13/20 10:02 AM) 79 bpm (11/13/20 8:00 AM) 68 bpm (11/13/20 5:45 AM) Body Mass Index [18.5-24.99] 22.31 (11/13/20 5:45 AM) 21.88 (11/08/20 6:04 AM) 22.65 (10/30/20 11:22 AM) Blood Pressure [90-138/55-84 mm Hg] 114/61mm Hg (11/13/20 10:02 AM) 114/61mm Hg (11/13/20 8:00 AM) 107/50mm Hg (11/13/20 6:08 AM) Respiratory Rate [16-30 br/min] 17 br/min (11/13/20 10:02 AM) 17 br/min (11/13/20 10:02 AM) 20 br/min (11/13/20 8:00 AM) Temperature [96.8-100.4 DegF] 98.6 DegF (11/13/20 8:00 AM) 99.2 DegF (11/13/20 5:45 AM) 98.2 DegF (11/12/20 10:51 PM) Liters per Minute 2 L/min (11/12/20 4:54 AM) 2 L/min (11/11/20 11:01 PM) 2 L/min (11/11/20 4:28 PM) Mode of Delivery (Oxygen) Room air (11/13/20 8:00 AM) Room air (11/13/20 5:45 AM) Room air (11/12/20 10:51 PM) Blood pressure sites Arm, right (11/13/20 8:00 AM) Arm, right (11/13/20 6:08 AM) Arm, right (11/13/20 5:45 AM) Temperature Route Oral (11/13/20 8:00 AM) Oral (11/13/20 5:45 AM) Oral (11/12/20 10:51 PM) Dry Weight 63.64 kg (10/30/20 11:22 AM) Weight Obtained Via Bed scale (11/13/20 5:45 AM) Bed scale (11/12/20 4:55 AM) Bed scale (11/11/20 7:04 AM) Dry Weight Obtained Via Patient/family s tated (10/30/20 11:22 AM) Social History Social History Type Response Smoking Status Current every day herve toney entered on: 12/17/15 Sex
--- OUTSIDE RECORDS SUMMARY | 2022-12-14 10:59 | XMS_ITS | Continuity of Care Document ---
Author Name Unknown Organization [facility] [place] Address [address] [place] [address]- Care Team Providers Care Cardiac Rehabilitation Specialist Name Role Phone Casey Suarez MD Primary Care Physician Encounter [facility] Date(s): 08/23/20 - 08/30/20 [facility] [address] [place] [address]- Attending Physician: Casey Suarez MD Allergies, Adverse Reactions, Alerts Substance Reaction [...] Comment: Pt tolerated well. [facility] #[id number] 2Location History: [place] 3Result Comment: [05/06/2017] [facility]:[id number] Medications Creon 36,000 units oral delayed release capsule 1 capsule, By Mouth, 3 times a day, with each meal, # 90 capsule, 3 Refills, Maintenance, 08/07/19 11:39:00 EDT, [facility][id number], 1 capsule By Mouth 3 times a day,Instr:with each meal, 168, cm, 08/07/19 9:46:00 EDT, Height, 63.5, kg, 08/06... Start Date: 08/07/19 Status: Ordered ENSURE/VANILLA ENSURE/VANILLA, See Instructions, # 6 pack/packet, Refills 11, Tot. Refills 11, Maintenance, EnsureMax Protein Formula TID DX Pancreatitis Weight Loss 3 [place] 1 Vanilla, 08/28/20 7:45:00 EDT, Compound Start [...] 04/22/20 13:38:00 EST, Route to Pharmacy Electronically, [facility] #[id number], Partial fill upon patient request, 168, cm, 04/22/20 12:49:00 EST,... Start Date: 04/22/20 Status: Ordered multivitamin Multiple Vitamins oral tablet 1 tablet, By Mouth, Daily, # 30 tablet, 5 Refills, Maintenance, 04/22/20 13:08:00 EST, Tablet, [facility] #[id number], 1 tablet By Mouth Daily,x30 days, 168, cm, 04/22/20 12:49:00 EST, Height, 63.5, kg, 08/07/19 9:46:00 EDT, Dry Weight Start Date: 04/22/20 Stop Date: 10/19/20 Status: Ordered omeprazole 40 mg oral enteric coated capsule 1 capsule = 40 mg, By Mouth, Daily, # 30 capsule, 10 Refills, Maintenance, 04/22/20 13:08:00 EST, EC Capsule, [facility] #[id number], 168, cm, 04/22/20 12:49:00 EST, Height, 63.5, [...] mL, 0 Refills, Maintenance, 08/26/20 16:28:00 EDT, [facility][id number], Partial fill upon patient request if the prescription is for a schedule II opioid drug., 1 glass ever... Start Date: 08/26/20 Status: Ordered ProAir HFA 90 mcg/inh inhalation aerosol with adapter 2, puffs, Inhalation, Every 6 hours, PRN, # 8.5 Gm, Refills 5, Tot. Refills 5, Maintenance, 07/04/20 8:18:00 EST, Aerosol, Route to Pharmacy Electronically, [id number], [facility] #[id number], 168, cm, 06/14/20 10:38:00... Start Date: 07/04/20 Status: Ordered tamsulosin 0.4 mg oral capsule 0.4 mg, 1, capsule, By Mouth, Daily, PER BELL HODGES, # 90 capsule, Refills 1, Tot. Refills 1, Maintenance, 04/29/20 16:06:00 EST, Route to Pharmacy Electronically, [facility] #[id number],Partial fill upon patient request, 168, cm, ... Start Date: 04/29/20 Status: Ordered traZODone 150 mg oral tablet 1 tablet, By Mouth, Daily at bedtime, PRN NEEDED FOR SLEEP, # 30 tablet, 5 Refills, Maintenance,04/22/20 13:08:00 EST, [facility] #[id number], 168, cm, 04/22/20 12:49:00 EST, Height, 63.5, [...] 2019. 2Repeat EGD in 07/2020 for surveillance 61159; repeat 2019 4R shoulder 2018 5Dr. Jimbo (ENT surgeons) Vital Signs Most recent to oldest [Reference Range]: 1 Height 168 cm (08/23/20 2:20 PM) Weight 63.1 kg (08/23/20 2:20 PM) Oxygen Saturation [94-100 %] 97 % (08/23/20 2:20 PM) Pulse Rate [55-90 bpm] 66 bpm (08/23/20 2:20 PM) Body Mass Index [18.5-24.99] 22.36 (08/23/20 2:20 PM) Blood Pressure [90-138/55-84 mm Hg] 136/ 60mm Hg (08/23/20 2:20 PM) Mode of Delivery (Oxygen) Room air (08/23/20 2:20 PM) Blood pressure sites Arm, left (08/23/20 2:20 PM) Weight Obtained Via Standing scale (08/23/20 2:20 PM) Social History Social History Type Response Smoking Status Current every day herve toney entered on: 12/17/15 Sex
--- OUTSIDE RECORDS SUMMARY | 2022-12-14 10:59 | XMS_ITS | Continuity of Care Document ---
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 [facility] #[id number] 2Location History: [place] 3Result Comment: [05/06/2017] [facility]:2102-4277-11 Medications amiodarone 200 mg oral tablet 200 mg, 1, tablet, By Mouth, 2 times a day, # 60 tablet, Refills 0, Tot. Refills 0, Maintenance, 11/13/20 9:34:00 EDT, Route to Pharmacy Electronically, [facility], Partial fill upon patient request if the prescription is for a schedule... Start Date: 11/13/20 Status: Ordered aspirin 81 mg oral delayed release tablet 81 mg, By Mouth, Daily, # 30 tablet, Refills 0, Tot. Refills 0, Maintenance, 11/13/20 9:32:00 EDT, Route to Pharmacy Electronically, [facility], Partial fill upon patient request if theprescription is for a schedule II opioid drug., 167... Start Date: 11/13/20 Stop Date: 12/13/20 Status: Ordered atorvastatin 80 mg oral tablet 1 tablet = 80 mg, By Mouth, Daily at bedtime, # 30 tablet, 0 Refills, Maintenance, 11/13/20 9:34:00EDT, Tablet, [facility], Partial fill upon patient request if the prescription is fora schedule II opioid drug., 167.64, cm, 11/13/20 6:... Start Date: 11/13/20 Status: Ordered Bactrim DS 800 mg-160 mg oral tablet 1 tablet, By Mouth, 2 times a day, for 7 days, # 14 tablet, 0 Refills, Acute 12/02/20 18:20:00 EDT,11/25/20 18:20:00 EDT, Tablet, [facility] #[id number], Partial fill upon patient request if the prescription is for a schedule II opioid drug., 1... Start Date: 11/25/20 Stop Date: 12/02/20 Status: Ordered clopidogrel 75 mg oral tablet 75 mg, 1, tablet, By Mouth, Daily, # 30 tablet, Refills 0, Tot. Refills 0, Maintenance, 11/13/20 9:34:00 EDT, Route to Pharmacy Electronically, [facility], Partial fill upon patient request if the prescription is for a schedule II opioid... Start Date: 11/13/20 Status: Ordered docusate sodium 100 mg oral tablet = 100 mg, By Mouth, 2 times a day, # 6 tablet, 0 Refills, Maintenance, 11/13/20 9:34:00 EDT, Tablet, [facility], Partial fill upon patient request if the prescription is for a schedule II opioid drug., 167.64, cm, 11/13/20 6:08:00 EDT, H... Start Date: 11/13/20 Stop Date: 11/16/20 Status: Ordered doxycycline hyclate 100 mg oral tablet 1 tablet = 100 mg, By Mouth, 2 times a day, for 10 days, with fluids, # 20 tablet, 0 Refills, Acute12/02/20 15:58:00 EDT, 11/22/20 15:58:00 EDT, Tablet, [facility] #[id number], Partial fill upon patient request if the prescription is for a sched... Start Date: 11/22/20 Stop Date: 12/02/20 Status: Ordered EpiPen 2-Sameer 0.3 mg injectable kit = 0.3 mg, Intramuscular, Once, Must go to hospital if used, # 1 box, 1 Refills, Soft Stop, 01/28/1710:33:03 Start Date: 01/28/17 Status: Ordered gabapentin 300 mg oral capsule 300 mg, 1, capsule, By Mouth, 3 times a day, # 90 capsule, Refills 6, Tot. Refills 6, Maintenance, 11/13/20 9:32:00 EDT, Route to Pharmacy Electronically, [facility], Partial fill upon patient request, 167.64, cm, 11/13/20 6:08:00 EDT, H... Start Date: 11/13/20 Stop Date: 06/11/21 Status: Ordered metoprolol 50 mg oral tablet 50 mg, 1, tablet, By Mouth, 2 times a day, # 60 tablet, Refills 0, Tot. Refills 0, Maintenance, 11/13/20 9:33:00 EDT, Route to Pharmacy Electronically, [facility], Partial fill upon patient request if the prescription is for a schedule I... Start Date: 11/13/20 Stop Date: 12/13/20 Status: Ordered multivitamin Multiple Vitamins oral tablet 1 tablet, By Mouth, Daily, # 30 tablet, 5 Refills, Maintenance, 04/22/20 13:08:00 EST, Tablet, [facility] #[id number], 1 tablet By Mouth Daily,x30 days, 168, cm, 04/22/20 12:49:00 EST, Height, 63.5, kg, 08/07/19 9:46:00 EDT, Dry Weight Start Date: 04/22/20 Stop Date: 10/19/20 Status: Ordered Nutritional Supplements See Instructions, # 6 each, Refills 11, Tot. Refills 11, Maintenance, High Protein Ensure Use TID DX Pancreatitis, Weight Loss ICD 10 K85.90 R63.4 3 [place] 3 Vanilla Height 5'6 Weight 130lbs, 11/25/20 10:55:00 EDT, Supply Start Date: 11/25/20 Status: Ordered omeprazole 40 mg oral enteric coated capsule 1 capsule = 40 mg, By Mouth, Daily, # 30 capsule, 10 Refills, Maintenance, 04/22/20 13:08:00 EST, EC Capsule, [facility] #[id number], 168, cm, 04/22/20 12:49:00 EST, Height, 63.5, kg, 08/07/19 9:46:00 EDT, Dry Weight Start Date: 04/22/20 Stop Date: 03/18/21 Status: Ordered PEG-3350 with Electrolytes (Eqv-GoLYTELY) oral powder for reconstitution See Instructions, 1 glass every 15-30 minutes until finished, # 4,000 mL, 0 Refills, Maintenance, 08/26/20 16:28:00 EDT, [facility] #[id number], Partial fill upon patient request if the prescription is for a schedule II opioid drug., 1 glass ever... Start Date: 08/26/20 Status: Ordered ProAir HFA 90 mcg/inh inhalation aerosol with adapter 2, puffs, Inhalation, Every 6 hours, PRN, # 8.5 Gm, Refills 5, Tot. Refills 5, Maintenance, 07/04/20 8:18:00 EST, Aerosol, Route to Pharmacy Electronically, [id number], [facility] #[id number], 168, cm, 06/14/20 10:38:00... Start Date: 07/04/20 Status: Ordered tamsulosin 0.4 mg oral capsule 0.4 mg, 1, capsule, By Mouth, Daily, PER BELL HODGES, # 90 capsule, Refills 1, Tot. Refills 1, Maintenance, 10/16/20 8:15:00 EDT, Route to Pharmacy Electronically, [facility] #[id number], Partial fill upon patient request, 168, cm, 10/16/20... Start Date: 10/16/20 Status: Ordered traZODone 150 mg oral tablet 1 tablet, By Mouth, Daily at bedtime, PRN NEEDED FOR SLEEP, # 90 tablet, 1 Refills, Maintenance,10/16/20 8:15:00 EDT, [facility] #[id number], 168, cm, 10/16/20 7:49:00 EDT, Height, 60, [...] 2018. 2Repeat EGD in 07/2020 for surveillance 37358; repeat 2019 4R shoulder 2018 5DrShabnam Choi (ENT surgeons) Vital Signs Most recent to oldest [Reference Range]: 1 Height 167.64 cm (11/21/20 2:17 PM) Weight 62.60 kg (11/21/20 2:17 PM) Oxygen Saturation [94-100 %] 99 % (11/21/20 2:17 PM) Pulse Rate [55-90 bpm] 68 bpm (11/21/20 2:17 PM) Body Mass Index [18.5-24.99] 22.28 (11/21/20 2:17 PM) Blood Pressure [90-138/55-84 mm Hg] 98/5 6mm Hg (11/21/20 2:17 PM) Respiratory Rate [16-30 br/min] 18 br/mi n (11/21/20 2:17 PM) Mode of Delivery (Oxygen) Room air (11/21/20 2:17 PM) Blood pressure sites Arm, left (11/21/20 2:17 PM) Weight Obtained Via Patient/family state d (11/21/20 2:17 PM) Social History Social History Type Response Smoking Status Current every day herve toney entered on: 12/17/15 Sex
--- OUTSIDE RECORDS SUMMARY | 2022-12-14 10:59 | XMS_ITS | Continuity of Care Document ---
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 [facility] #43675-222-86 2Location History: [place] 3Result Comment: [05/06/2017] [facility]:7419-1248-67 Medications aspirin 81 mg oral delayed release tablet 81 mg, 1, tablet, By Mouth, Daily, # 90 tablet, Refills 1, Tot. Refills 1, Maintenance, 01/09/21 14:52:00 EDT, Route to Pharmacy Electronically, [facility] #[id number], Partial fill upon patientrequest if the prescription is for a schedule II op... Start Date: 01/09/21 Status: Ordered atorvastatin 80 mg oral tablet 1 tablet = 80 mg, By Mouth, Daily at bedtime, # 90 tablet, 3 Refills, Maintenance, 02/12/21 10:54:00 EDT, Tablet, [facility] #[id number], 167.64, cm, 01/13/21 9:46:00 EDT, Height, 63.64, kg, 10/30/20 11:22:00 EDT, Dry Weight Start Date: 02/12/21 Stop Date: 02/07/22 Status: Ordered clopidogrel 75 mg oral tablet 75 mg, 1, tablet, By Mouth, Daily, # 30 tablet, Refills 11, Tot. Refills 11, Maintenance, 12/09/20 17:12:00 EDT, Route to Pharmacy Electronically, [facility] #[id number], Partial fill upon patient request if the prescription is for a schedule II... Start Date: 12/09/20 Status: Ordered EpiPen 2-Sameer 0.3 mg injectable kit = 0.3 mg, Intramuscular, Once, Must go to hospital if used, # 1 each, 1 Refills, Soft Stop, 01/09/21 14:45:00 EDT, [facility] #[id number], 167.64, cm, 01/09/21 14:27:00 EDT, Height, 63.64, [...] 01/13/21 9:59:00 EDT, Route to Pharmacy Electronically, [facility] #[id number], Partial fill upon patient request if the prescription is for a schedule II opi... Start Date: 01/13/21 Status: Ordered multivitamin Multiple Vitamins oral tablet 1 tablet, By Mouth, Daily, # 90 tablet, 1 Refills, Maintenance, 01/09/21 14:44:00 EDT, Tablet, [facility] #[id number], 1 tablet By Mouth Daily, 167.64, cm, 01/09/21 14:27:00 EDT, Height, 63.64, kg, 10/30/20 11:22:00 EDT, Dry Weight Start Date: 01/09/21 Status: Ordered Nutritional Supplements See Instructions, # 90 each, Refills 11, Tot. Refills 11, Maintenance, High Protein Ensure Use TID DX Pancreatitis, Weight Loss ICD 10 K85.90 R63.4 3 [place] 3 Vanilla Height 5'6 Weight 130lbs, 12/20/20 7:33:00 EDT, Supply Start Date: 12/20/20 Status: Ordered omeprazole 40 mg oral enteric coated capsule 1 capsule = 40 mg, By Mouth, Daily, # 30 capsule, 2 Refills, Maintenance, 01/14/21 14:05:00 EDT, ECCapsule, [facility] #[id number], 167.64, cm, 01/13/21 9:46:00 EDT, Height, 63.64, kg, 10/30/2110:22:00 EDT, Dry Weight Start Date: 01/14/21 Stop Date: 04/14/21 Status: Ordered PEG-3350 with Electrolytes (Eqv-GoLYTELY) oral powder for reconstitution See Instructions, 1 glass every 15-30 minutes until finished, # 4,000 mL, 0 Refills, Maintenance, 08/26/20 16:28:00 EDT, [facility] #[id number], Partial fill upon patient request if the prescription is for a schedule II opioid drug., 1 glass ever... Start Date: 08/26/20 Status: Ordered ProAir HFA 90 mcg/inh inhalation aerosol with adapter 2, puffs, Inhalation, Every 6 hours, PRN, # 8.5 Gm, Refills 5, Tot. Refills 5, Maintenance, 07/04/20 8:18:00 EST, Aerosol, Route to Pharmacy Electronically, [id number], [facility] #[id number], 168, cm, 06/14/20 10:38:00... Start Date: 07/04/20 [...] 10/16/20 8:15:00 EDT, Route to Pharmacy Electronically, [facility] #[id number], Partial fill upon patient request, 168, cm, [...] 90 tablet, 1 Refills, Maintenance,10/16/20 8:15:00 EDT, [facility] #[id number], 168, cm, 10/16/20 7:49:00 EDT, Height, 60, [...] 2019. 2Repeat EGD in 07/2020 for surveillance 37018; repeat 2019 4R shoulder 2018 5DrShabnam Choi (ENT surgeons) Social History Social History Type Response Smoking Status Current every day herve toney entered on: 12/17/15 Sex
--- OUTSIDE RECORDS SUMMARY | 2022-12-14 10:59 | XMS_ITS | Continuity of Care Document ---
Author Name Unknown Organization [facility] Address [address] [place] [address] [place] [address]- Care Team Providers Care Scientific Writer Name Role Phone Casey Suarez MD Primary Care Physician [facility] Date(s): 07/11/21 - 08/10/21 [facility] [address] [place] [address] [place] [address]- Attending Physician: Admtr, Ar8 Admitting Physician: Admtr, [...] en Parent Or Guardian Refuses 1Result Comment: [facility]# [address] [id number] 2Result Comment: Pt tolerated well. [facility] #[id number] 3Location History: [place] 4Result Comment: [05/06/2017] [facility]:2058-4050-95 Medications aspirin 81 mg oral delayed release tablet 1 tablet, By Mouth, Daily, # 90 tablet, 0 Refills, [facility] #[id number], 167.64, cm, 04/21/21 13:13:00 EST, Height, 63.64, kg, 10/30/20 11:22:00 EDT, Dry Weight Start Date: 07/11/21 Status: Ordered atorvastatin 80 mg oral tablet 1 tablet = 80 mg, By Mouth, Daily at bedtime, # 90 tablet, 3 Refills, Maintenance, 02/12/21 10:54:00 EDT, Tablet, [facility] #[id number], 167.64, cm, 01/13/21 9:46:00 EDT, Height, 63.64, kg, 10/30/20 11:22:00 EDT, Dry Weight Start Date: 02/12/21 Stop Date: 02/07/22 Status: Ordered clopidogrel 75 mg oral tablet 75 mg, 1, tablet, By Mouth, Daily, # 30 tablet, Refills 11, Tot. Refills 11, Maintenance, 12/09/20 17:12:00 EDT, Route to Pharmacy Electronically, [facility] #[id number], Partial fill upon patient request if the prescription is for a schedule II... Start Date: 12/09/20 Status: Ordered EpiPen 2-Sameer 0.3 mg injectable kit = 0.3 mg, Intramuscular, Once, Must go to hospital if used, # 1 each, 1 Refills, Soft Stop, 01/09/21 14:45:00 EDT, [facility] #[id number], 167.64, cm, 01/09/21 14:27:00 EDT, Height, 63.64, [...] 01/13/21 9:59:00 EDT, Route to Pharmacy Electronically, [facility] #[id number], Partial fill upon patient request if the prescription is for a schedule II opi... Start Date: 01/13/21 Status: Ordered multivitamin Multiple Vitamins oral tablet 1 tablet, By Mouth, Daily, # 90 tablet, 1 Refills, [facility] #[id number], 90, TAKE 1 TABLET BY MOUTH DAILY, 167.64, cm, 04/21/21 13:13:00 EST, Height, 63.64, kg, 10/30/20 11:22:00 EDT, Dry Weight Start Date: 07/10/21 Status: Ordered Nutritional Supplements See Instructions, # 90 each, Refills 11, Tot. Refills 11, Maintenance, High Protein Ensure Use TID DX Pancreatitis, Weight Loss ICD 10 K85.90 R63.4 3 [place] 3 Vanilla Height 5'6 Weight 130lbs, 12/20/20 7:33:00 EDT, Supply Start Date: 12/20/20 Status: Ordered omeprazole 40 mg oral enteric coated capsule 1 capsule = 40 mg, By Mouth, Daily, # 30 capsule, 2 Refills, Maintenance, 01/14/21 14:05:00 EDT, ECCapsule, [facility] #[id number], 167.64, cm, 01/13/21 9:46:00 EDT, Height, 63.64, kg, 10/30/2110:22:00 EDT, Dry Weight Start Date: 01/14/21 Stop Date: 04/14/21 Status: Ordered PEG-3350 with Electrolytes (Eqv-GoLYTELY) oral powder for reconstitution See Instructions, 1 glass every 15-30 minutes until finished, # 4,000 mL, 0 Refills, Maintenance, 08/26/20 16:28:00 EDT, [facility] #[id number], Partial fill upon patient request if the prescription is for a schedule II opioid drug., 1 glass ever... Start Date: 08/26/20 Status: Ordered ProAir HFA 90 mcg/inh inhalation aerosol with adapter 2, puffs, Inhalation, Every 6 hours, PRN, # 8.5 Gm, Refills 5, Tot. Refills 5, Maintenance, 07/04/20 8:18:00 EST, Aerosol, Route to Pharmacy Electronically, [id number], [facility] #[id number], 168, cm, 06/14/20 10:38:00... Start Date: 07/04/20 [...] capsule, Refills 1, Route to Pharmacy Electronically, [facility] #[id number], 167.64, cm, 03/20/21 8:49:00 EDT, Height, 63.64, [...] FOR SLEEP, # 90 tablet, 1 Refills, [facility] #[id number], 167.64, cm, 03/20/21 8:49:00 EDT, Height, 63.64, [...] 2019. 2Repeat EGD in 07/2020 for surveillance 06752; repeat 2019 4R shoulder 2018 5DrShabnam Choi (ENT surgeons) Social History Social History Type Response Smoking Status Current every day herve toney entered on: 12/17/15 Sex
--- OUTSIDE RECORDS SUMMARY | 2022-12-14 10:59 | XMS_ITS | Continuity of Care Document ---
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 [facility] #[id number] 2Location History: [facility] 3Result Comment: [05/06/2017] [facility]:6775-2833-85 Medications amiodarone 200 mg oral tablet 200 mg, 1, tablet, By Mouth, 2 times a day, # 60 tablet, Refills 0, Tot. Refills 0, Maintenance, 11/13/20 9:34:00 EDT, Route to Pharmacy Electronically, [facility], Partial fill upon patient request if the prescription is for a schedule... Start Date: 11/13/20 Status: Ordered aspirin 81 mg oral delayed release tablet 81 mg, 1, tablet, By Mouth, Daily, Future refills to come from cardiology or PCP, # 30 tablet, Refills 0, Tot. Refills 0, Maintenance, 12/13/20 9:32:00 EDT, Route to Pharmacy Electronically, [facility] #[id number], Partial fill upon patient reque... Start Date: 12/13/20 Stop Date: 01/12/21 Status: Ordered atorvastatin 80 mg oral tablet 1 tablet = 80 mg, By Mouth, Daily at bedtime, # 90 tablet, 4 Refills, Maintenance, 02/07/21 10:28:00 EDT, Tablet, [facility] #[id number], Partial fill upon patient request if the prescription isfor a schedule II opioid drug., 167.64, cm, ... Start Date: 02/07/21 Stop Date: 05/03/22 Status: Ordered atorvastatin 80 mg oral tablet 1 tablet = 80 mg, By Mouth, Daily at bedtime, for 30 days, # 30 tablet, 1 Refills, Hard Stop 02/07/21 10:28:00 EDT, 12/09/20 10:28:00 EDT, Tablet, [facility] #[id number], Partial fill upon patient request if the prescription is for a schedule II... Start Date: 12/09/20 Stop Date: 02/07/21 Status: Ordered clopidogrel 75 mg oral tablet 75 mg, 1, tablet, By Mouth, Daily, # 30 tablet, Refills 11, Tot. Refills 11, Maintenance, 12/09/20 17:12:00 EDT, Route to Pharmacy Electronically, [facility] #[id number], Partial fill upon patient request if the prescription is for a schedule II... Start Date: 12/09/20 Status: Ordered docusate sodium 100 mg oral tablet = 100 mg, By Mouth, 2 times a day, # 6 tablet, 0 Refills, Maintenance, 11/13/20 9:34:00 EDT, Tablet, [facility], Partial fill upon patient [...] 11/13/20 9:32:00 EDT, Route to Pharmacy Electronically, [facility], Partial fill upon patient request, 167.64, cm, 11/13/20 6:08:00 EDT, H... Start Date: 11/13/20 Stop Date: 06/11/21 Status: Ordered metoprolol 50 mg oral tablet 50 mg, 1, tablet, By Mouth, 2 times a day, Future refills to come from cardiology or PCP, # 60 capsule, Refills 0, Tot. Refills 0, Maintenance, 12/13/20 9:33:00 EDT, Route to Pharmacy Electronically,[facility] #[id number], Metoprolol tartrate ta... Start Date: 12/13/20 Stop Date: 01/12/21 Status: Ordered multivitamin Multiple Vitamins oral tablet 1 tablet, By Mouth, Daily, # 30 tablet, 0 Refills, Maintenance, 12/09/20 17:12:00 EDT, Tablet, [facility] #[id number], 1 tablet By Mouth Daily, 167.64, cm, 11/22/20 15:34:00 EDT, Height, 63.64, kg, 10/30/20 11:22:00 EDT, Dry Weight Start Date: 12/09/20 Stop Date: 06/07/21 Status: Ordered Nutritional Supplements See Instructions, # 90 each, Refills 11, Tot. Refills 11, Maintenance, High Protein Ensure Use TID DX Pancreatitis, Weight Loss ICD 10 K85.90 R63.4 3 [place] 3 Vanilla Height 5'6 Weight 130lbs, 12/20/20 7:33:00 EDT, Supply Start Date: 12/20/20 Status: Ordered omeprazole 40 mg oral enteric coated capsule 1 capsule = 40 mg, By Mouth, Daily, # 30 capsule, 10 Refills, Maintenance, 04/22/20 13:08:00 EST, EC Capsule, [facility] #[id number], 168, cm, 04/22/20 12:49:00 EST, Height, 63.5, [...] mL, 0 Refills, Maintenance, 08/26/20 16:28:00 EDT, [facility] #[id number], Partial fill upon patient request if the prescription is for a schedule II opioid drug., 1 glass ever... Start Date: 08/26/20 Status: Ordered ProAir HFA 90 mcg/inh inhalation aerosol with adapter 2, puffs, Inhalation, Every 6 hours, PRN, # 8.5 Gm, Refills 5, Tot. Refills 5, Maintenance, 07/04/20 8:18:00 EST, Aerosol, Route to Pharmacy Electronically, [id number], [facility] #[id number], 168, cm, 06/14/20 10:38:00... Start Date: 07/04/20 Status: Ordered tamsulosin 0.4 mg oral capsule 0.4 mg, 1, capsule, By Mouth, Daily, PER BELL HODGES, # 90 capsule, Refills 1, Tot. Refills 1, Maintenance, 10/16/20 8:15:00 EDT, Route to Pharmacy Electronically, [email or web address] #[id number], Partial fill upon patient request, 168, cm, 10/16/20... Start Date: 10/16/20 Status: Ordered traZODone 150 mg oral tablet 1 tablet, By Mouth, Daily at bedtime, PRN NEEDED FOR SLEEP, # 90 tablet, 1 Refills, Maintenance,10/16/20 8:15:00 EDT, [facility] #[id number], 168, cm, 10/16/20 7:49:00 EDT, Height, 60, [...] 2018. 2Repeat EGD in 07/2020 for surveillance 97255; repeat 2019 4R shoulder 2018 5Dr. Jimbo (ENT surgeons) Social History Social History Type Response Smoking Status Current every day herve toney entered on: 12/17/15 Sex
--- OUTSIDE RECORDS SUMMARY | 2022-12-14 10:59 | XMS_ITS | Continuity of Care Document ---
Author Name Unknown Organization [facility] [place] Address [address] [place] [address]- Care Team Providers Care Nutrition Therapist Name Role Phone Casey Suarez MD Primary Care Physician [phone] [facility]): 10[facility]22 - 10/22/22 [facility] [place] [address] [place] [address]- Attending Physician: Casey Suarez MD Allergies, Adverse Reactions, Alerts Substance Reaction Severity Status amoxicillin heart racing Active acetaminophen-codeine ANAPHYLAXSIS Active Augmentin swelling of throat, diff breath, rash Active Bee Stings anaphylactic Active Immunizations Given and Recorded Vaccine Date Status Refusal Reason pneumococcal 20-valent conjugate vaccine 1 10/15/22 Given influenza virus vaccine, inactivated 2 03/13/22 Gi nini influenza virus vaccine, inactivated 3 03/20/21 Gi nini influenza virus vaccine, inactivated 04/22/20 Give n influenza virus vaccine, inactivated 4 05/26/19 Gi nini influenza virus vaccine, inactivated 03/21/18 Give n influenza virus vaccine, inactivated 03/06/17 Wong rded influenza virus vaccine, inactivated 5 03/10/16 Re corded influenza virus vaccine, inactivated 05/08/15 Wong rded SARS-CoV-2 (COVID-19) mRNA BNT-162b2 vac 05/12/21 Given SARS-CoV-2 (COVID-19) mRNA BNT-162b2 vac 09/21/20 Recorded SARS-CoV-2 (COVID-19) mRNA BNT-162b2 vac 08/29/20 Recorded pneumococcal 23-valent vaccine 6 05/06/17 Given pneumococcal 23-valent vaccine 04/21/16 Recorded pneumococcal 23-valent vaccine 04/20/16 Recorded pneumococcal 23-valent vaccine 12/18/15 Given tetanus/diphtheria/pertussis, acel(Tdap) 04/29/16 Given tetanus-diphtheria toxoids (Td) 01/03/14 Recorded Not Given Vaccine Date Status Refusal Reason Influenza Virus Vaccine (oldterm) 04/21/19 Not Giv en Parent Or Guardian Refuses 1Result Comment: [facility]:[id number] 2Result Comment: [facility]# [id number] 3Result Comment: [facility]# [address] [phone] 4Result Comment: Pt tolerated well. [facility] #[id number] 5Location History: [facility] 6Result Comment: [05/06/2017] [facility]:[id number] Medications aspirin 81 mg oral delayed release tablet 1 tablet, By Mouth, Daily, # 90 tablet, 3 Refills, Maintenance, 06/09/22 10:43:00 EST, [facility] #[id number], 167.6, cm, 06/09/22 10:24:00 EST, Height, 63.6, kg, 09/22/21 9:54:00 EDT, Dry Weight Start Date: 06/09/22 Status: Ordered atorvastatin 80 mg oral tablet 1 tablet, By Mouth, Daily at bedtime, # 90 tablet, 0 Refills, Maintenance, 09/02/22 8:23:00 EDT, [facility] #[id number], 167.6, cm, 06/16/22 7:22:00 EST, Height, 63.6, kg, 09/22/21 9:54:00 EDT, Dry Weight Start Date: 09/02/22 Status: Ordered EpiPen 2-Sameer 0.3 mg injectable kit = 0.3 mg, Intramuscular, Once, Must go to hospital if used, # 1 each, 1 Refills, Soft Stop, 01/09/21 14:45:00 EDT, [facility] #[id number], 167.64, cm, 01/09/21 14:27:00 EDT, Height, 63.64, kg, 10/30/20 11:22:00 EDT, Dry Weight Start Date: 01/09/21 Status: Ordered gabapentin 300 mg oral capsule 2, capsule, By Mouth, 2 times a day, # 120 capsule, Refills 1, Maintenance, 09/09/22 15:15:00 EDT, Route to Pharmacy Electronically, [facility] #[id number], 167.6, cm, 06/16/22 7:22:00 EST, Height, 63.6, kg, 09/22/21 9:54:00 EDT, Dry Weight Start Date: 09/09/22 Status: Ordered Large Blood Pressure Cuff Large Blood Pressure Cuff, See Instructions, # 1 each, Refills 0, Tot. Refills 0, Maintenance, Large BP Cuff use as directed dx hypertension ICD 10 I11.9 Length of need Lifetime Weight 130lbs height 5'6, 12/27/20 12:39:00 EDT, Supply Start Date: 12/27/20 Status: Ordered multivitamin Multiple Vitamins oral tablet 1 tablet, By Mouth, Daily, # 90 tablet, 3 Refills, Maintenance, 06/09/22 10:44:00 EST, [facility] #[id number], 90, 1 tablet By Mouth Daily, 167.6, cm, 06/09/22 10:24:00 EST, Height, 63.6, kg, 09/22/21 9:54:00 EDT, Dry Weight Start Date: 06/09/22 Status: Ordered Nutritional Supplements See Instructions, # 90 each, Refills 11, Tot. Refills 11, Maintenance, High Protein Ensure Use TID DX Pancreatitis, Weight Loss ICD 10 K85.90 R63.4 3 [place] 3 Vanilla Height 5'6 Weight 130lbs, 12/20/20 7:33:00 EDT, Supply Start Date: 12/20/20 Status: Ordered omeprazole 40 mg oral enteric coated capsule 1 capsule, By Mouth, Daily, # 30 capsule, 2 Refills, Maintenance, 09/01/22 10:42:00 EDT, [facility] #[id number], 167.6, cm, 06/16/22 7:22:00 EST, Height, 63.6, kg, 09/22/21 9:54:00 EDT, Dry Weight Start Date: 09/01/22 Status: Ordered PEG-3350 with Electrolytes (Eqv-GoLYTELY) oral powder for reconstitution See Instructions, 1 glass every 15-30 minutes until finished, # 4,000 mL, 0 Refills, Maintenance, 08/26/20 16:28:00 EDT, [facility] #[id number], Partial fill upon patient request if the prescription is for a schedule II opioid drug., 1 glass ever... Start Date: 08/26/20 Status: Ordered ProAir HFA 90 mcg/inh inhalation aerosol with adapter 2, puffs, Inhalation, Every 6 hours, PRN, # 8.5 Gm, Refills 5, Tot. Refills 5, Maintenance, 07/04/20 8:18:00 EST, Aerosol, Route to Pharmacy Electronically, [id number], [facility] #[id number], 168, cm, 06/14/20 10:38:00... Start Date: 07/04/20 [...] Status: Ordered tamsulosin 0.4 mg oral capsule 0.8 mg, 2, capsule, By Mouth, Daily, # 180 capsule, Refills 3, Tot. Refills 3, Maintenance, 10/15/22 9:26:00 EDT, Route to Pharmacy Electronically, [facility] #[id number], 167.6, cm, 10/15/22 9:15:00 EDT, Height, 63.6, kg, 09/22/21 9:54:00 EDT, D... 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 2 Confirmed 02/02/17 Active Change in multiple pigmented skin lesions Confirmed Active Chronic anemia Confirmed Active Chronic back [...] surgery 4 Confirmed Active Hypercholesterolemia Confirmed Active Cognitive impairment Confirmed Active Infected sebaceous cyst Confirmed Active Insomnia Confirmed Active 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 2Repeat EGD in 07/2020 for surveillance 13942; repeat 2019 4R shoulder 2018 5DrShabnam Choi (ENT surgeons) Vital Signs Most recent to oldest [Reference Range]: 1 Height 167.6 cm (10/15/22 9:15 AM) Weight 59.4 kg (10/15/22 9:15 AM) Oxygen Saturation [94-100 %] 97 % (10/15/22 9:15 AM) Pulse Rate [55-90 bpm] 71 bpm (10/15/22 9:15 AM) Body Mass Index [18.5-24.99 kg/m2] 21.15 kg/m2 (10/15/22 9:15 AM) Blood Pressure [90-138/55-84 mm Hg] 100/ 70mm Hg (10/15/22 9:15 AM) Mode of Delivery (Oxygen) Room air (10/15/22 9:15 AM) Blood pressure sites Arm, left (10/15/22 9:15 AM) Weight Obtained Via Standing scale (10/15/22 9:15 AM) Social History Social History Type Response Smoking Status 10 or more cigarette s (1/2 pack or more)/day in last 30 days entered on: 03/13/22 Sex Note * Heather Low: PERFORM, SIGN, VERIFY Event Display: Patient Education/Instruction Authored Date: [id number] [facility] *DARNELL Lyons Clinical Summary Name CATHLEEN NARAYANAN Age 56 Years 1965 [facility]CP [id number] Visit Date 10/15/2022 09:04:00 Additional Instructions: Scheduled Appointments?? Future Appointments ?No Future Appointments Scheduled Follow-Up Instructions ?? With: Address: When: Casey Suarez MD In 6 months Comments: Physical examination Diagnosis Insomnia, unspecified; Low back pain, unspecified Medications: Please continue your medications until treatment is completed or stopped by your provider. Discuss any questions related to medications with your provider. Medications to Continue Taking That Have Changed [facility] #[id number], [address], [place] [id number], [phone] - Tamsulosin (tamsulosin 0.4 mg oral capsule) 2 capsule Oral Daily for 90 Days. Refills: 3. Next Dose: Medications to Continue with No Changes These medications were not printed or sent to your pharmacy Albuterol (ProAir HFA 90 mcg/inh inhalation aerosol with adapter) 2 puff(s) Inhalation every 6 hours as needed for wheezing. Refills: 5. Next Dose: Aspirin (aspirin 81 mg oral delayed release tablet) 1 tab(s) Oral Daily. Refills: 3. Next Dose: Atorvastatin (atorvastatin 80 mg oral tablet) 1 tab(s) Oral Daily at Bedtime. Refills: 0. Next Dose: Durable Medical Equipment (Nutritional Supplements) High Protein Ensure Use TID DX Pancreatitis, Weight Loss ICD 10 K85.90 R63.4 3 [place] 3 Vanilla Height 5'6 Weight 130lbs. Refills: 11. Next Dose: Durable Medical Equipment (pulse oxmeter) Pulse oximeter use as directed dx copd Icd 10 J44.9 Length of need Lifetime height 5'6 weight 130lbs. Refills: 0. Next Dose: Durable Medical Equipment (standing scale) standing scale use as directed dx weight loss Icd 10 R63.4 length of use lifetime weight 130lbs ht 5'6. Refills: 0. Next Dose: Durable Medical Equipment (Teds stockings bilateral legs) Teds compression stockings bilateral legs use as directed Length: Above the calf 2 pairs DX: Deep vein thrombosis Icd 10 I82.503 Length of need: Lifetime Weight: 130lbs Height: 5'6. Refills: 0. Next Dose: Durable Medical Equipment (teds stockings) teds stockings 1 pair use as directed dx deep veing thrombosis icd 10 I 82.503 length of need lifetime 130lbs ht 5'6. Refills: 0. Next Dose: EPINEPHrine (EpiPen 2-Sameer 0.3 mg injectable kit) 0.3 Milligram Intramuscular once. Must go to hospital if used. Refills: 1. Next Dose: Gabapentin (gabapentin 300 mg oral capsule) 2 capsule Oral twice a day. Refills: 1. Next Dose: Miscellaneous Rx (Large Blood Pressure Cuff) Large BP Cuff use as directed dx hypertension ICD 10 I11.9 Length of need Lifetime Weight 130lbs height 5'6. Refills: 0. Next Dose: Multivitamin (multivitamin Multiple Vitamins oral tablet) 1 tab(s) Oral Daily. Refills: 3. Next Dose: Omeprazole (omeprazole 40 mg oral enteric coated capsule) 1 capsule Oral Daily. Refills: 2. Next Dose: PEG Electrolyte Solution (PEG-3350 with Electrolytes (Eqv-GoLYTELY) oral powder for reconstitution)1 glass every 15-30 minutes until finished. Refills: 0. Next Dose: Trazodone (traZODone 150 mg oral tablet) 1 tab(s) Oral Daily at Bedtime as needed NEEDED FOR SLEEP. Refills: 1. Next Dose: No Longer Take the Following Medications Metoprolol (metoprolol 25 mg oral tablet) 0.5 tab(s) Oral twice a day. Refills: 0. Allergy Info:?? Bee Stings; Augmentin; acetaminophen-codeine; amoxicillin Medications Given This Visit Medication Dose Route pneumococcal 20-valent conjugate vaccine (pneumococcal 20-valent vacc) 0.5 mL Intramuscular Future Orders ?Hand Min 3 Views Left? Order Date:10/15/22?- Complete on or after?10/15/22 Vital Signs Height 167.6 cm Weight 59.4 kg BMI 21.15 kg/m2 Blood Pressure 100 mm Hg/70 mm Hg Temperature Pulse Rate 71 bpm Respiratory Rate 02 Sat Mode of Delivery 97 %/Room air You can now view a summary of your hospital visit from the comfort of your home through a free online portal called [employer]. [employer] is a website that allows you to securely view your medical information including discharge summary, medications and follow-up visits. ??You can alsosend a secure electronic message to your doctor???s office to request appointments, renew medications or just ask a question. You can enroll at [email or web address] or register during your next office visit. Disclaimer:?? The information provided is of a general nature and is intended to be used in conjunction with the recommendations and advice of your health care practitioner. ??Every effort has been made to ensure that the information provided is accurate and complete at the time it is provided to you however, as your needs change, or, as new ??information becomes available, different or additional instructions may be required. If you have questions, please consult with your primary care provider or pharmacist, as appropriate. ??This information is not intended to serve as substitution for assessment and evaluation by a qualified health care provider. If you do not have a primary care provider, you may find a [facility] provider by calling [facility] at [phone]. For information about the plan of care including goals and instructions for your diagnosis, please see the patient education orders section of this document. Patient Education Materials?? The content of this educational material or handout may have been modified, supplemented, or adapted from its original content and format to support your individualized medical care. Patient Care team information Care Team Personnel Name: April Landrum RN Position: [facility] RN Member Role: Primary Care Nurse Name: Talib Jensen RN Position: [facility] RN Member Role: Primary Care Nurse Name: Casey Suarez MD Position: [facility] Physician - Primary Care Member Role: PCP Address: Address: [address] [place] [id number] Name: Frida Urban RN [facility] Care Nurse Name: Desiree Caballero RN Position: [facility] Member Role: Primary Care Nurse Name: Melvina Palacios RN Position: [facility] RN Member Role: Primary Care Nurse Name: Diandra Méndez RN Position: [facility] RN Member Role: Primary Care Nurse Care Team Related Persons Name: LAYLA NARAYANAN Address: [address] [address]
--- OUTSIDE RECORDS SUMMARY | 2022-12-14 10:59 | XMS_ITS | Continuity of Care Document ---
Author Name Unknown Organization [facility] Address [address] [place] [address]- Care Team Providers Care Remediation Project Engineer Name Role Phone Casey Suarez MD Primary Care Physician [phone] [facility]): 04[facility]14[facility]21 - 05/14/21 [facility] [address] [place] [id number]- [place] Allergies, Adverse Reactions, Alerts Substance Reaction [...] en Parent Or Guardian Refuses 1Result Comment: [facility]# [address] [phone] 2Result Comment: Pt tolerated well. [facility] #[id number] 3Location History: [facility] 4Result Comment: [05/06/2017] [facility]:[id number] Medications aspirin 81 mg oral delayed release tablet 81 mg, 1, tablet, By Mouth, Daily, # 90 tablet, Refills 1, Tot. Refills 1, Maintenance, 01/09/21 14:52:00 EDT, Route to Pharmacy Electronically, [facility] #[id number], Partial fill upon patientrequest if the prescription is for a schedule II op... Start Date: 01/09/21 Status: Ordered atorvastatin 80 mg oral tablet 1 tablet = 80 mg, By Mouth, Daily at bedtime, # 90 tablet, 3 Refills, Maintenance, 02/12/21 10:54:00 EDT, Tablet, [facility] #[id number], 167.64, cm, 01/13/21 9:46:00 EDT, Height, 63.64, kg, 10/30/20 11:22:00 EDT, Dry Weight Start Date: 02/12/21 Stop Date: 02/07/22 Status: Ordered clopidogrel 75 mg oral tablet 75 mg, 1, tablet, By Mouth, Daily, # 30 tablet, Refills 11, Tot. Refills 11, Maintenance, 12/09/20 17:12:00 EDT, Route to Pharmacy Electronically, [facility] #71076, Partial fill upon patient request if the prescription is for a schedule II... Start Date: 12/09/20 Status: Ordered EpiPen 2-Sameer 0.3 mg injectable kit = 0.3 mg, Intramuscular, Once, Must go to hospital if used, # 1 each, 1 Refills, Soft Stop, 01/09/21 14:45:00 EDT, [facility] #29513, 167.64, cm, 01/09/21 14:27:00 EDT, Height, 63.64, [...] 01/13/21 9:59:00 EDT, Route to Pharmacy Electronically, [facility] #06654, Partial fill upon patient request if the prescription is for a schedule II opi... Start Date: 01/13/21 Status: Ordered multivitamin Multiple Vitamins oral tablet 1 tablet, By Mouth, Daily, # 90 tablet, 1 Refills, Maintenance, 01/09/21 14:44:00 EDT, Tablet, [facility] #[id number], 1 tablet By Mouth Daily, 167.64, cm, 01/09/21 14:27:00 EDT, Height, 63.64, kg, 10/30/20 11:22:00 EDT, Dry Weight Start Date: 01/09/21 Status: Ordered Nutritional Supplements See Instructions, # 90 each, Refills 11, Tot. Refills 11, Maintenance, High Protein Ensure Use TID DX Pancreatitis, Weight Loss ICD 10 K85.90 R63.4 3 [place] 3 Vanilla Height 5'6 Weight 130lbs, 12/20/20 7:33:00 EDT, Supply Start Date: 12/20/20 Status: Ordered omeprazole 40 mg oral enteric coated capsule 1 capsule = 40 mg, By Mouth, Daily, # 30 capsule, 2 Refills, Maintenance, 01/14/21 14:05:00 EDT, ECCapsule, [facility] #43518, 167.64, cm, 01/13/21 9:46:00 EDT, Height, 63.64, kg, 10/30/2110:22:00 EDT, Dry Weight Start Date: 01/14/21 Stop Date: 04/14/21 Status: Ordered PEG-3350 with Electrolytes (Eqv-GoLYTELY) oral powder for reconstitution See Instructions, 1 glass every 15-30 minutes until finished, # 4,000 mL, 0 Refills, Maintenance, 08/26/20 16:28:00 EDT, [facility] #11293, Partial fill upon patient request if the prescription is for a schedule II opioid drug., 1 glass ever... Start Date: 08/26/20 Status: Ordered ProAir HFA 90 mcg/inh inhalation aerosol with adapter 2, puffs, Inhalation, Every 6 hours, PRN, # 8.5 Gm, Refills 5, Tot. Refills 5, Maintenance, 07/04/20 8:18:00 EST, Aerosol, Route to Pharmacy Electronically, [id number], [facility] #[id number], 168, cm, 06/14/20 10:38:00... Start Date: 07/04/20 [...] capsule, Refills 1, Route to Pharmacy Electronically, [facility] #[id number], 167.64, cm, 03/20/21 8:49:00 EDT, Height, 63.64, [...] FOR SLEEP, # 90 tablet, 1 Refills, [facility] #67577, 167.64, cm, 03/20/21 8:49:00 EDT, Height, 63.64, [...] 2018. 2Repeat EGD in 07/2020 for surveillance 74439; repeat 2019 4R shoulder 2017 5Dr. Jimbo (ENT surgeons) Social History Social History Type Response Smoking Status Current every day herve toney entered on: 12/17/15 Sex
--- OUTSIDE RECORDS SUMMARY | 2022-12-14 11:00 | XMS_ITS | Continuity of Care Document ---
Author Name Unknown Organization [facility] Address [address] [place] [address]- Care Team Providers Care Dean Name Role Phone Casey Suarez MD Primary Care Physician [facility] 06[facility]21 - 07/17/21 [facility] [address] [place] [address]- Allergies, Adverse Reactions, Alerts Substance Reaction Severity [...] tetanus/diphtheria/pertussis, acel(Tdap) 04/29/16 Given tetanus-diphtheria toxoids (Td) 8/6/14 Recorded Not Given Vaccine Date Status Refusal Reason Influenza Virus Vaccine (oldterm) 04/21/19 Not Giv en Parent Or Guardian Refuses 1Result Comment: [facility]# [address] [id number] 2Result Comment: Pt tolerated well. [facility] #[id number] 3Location History: [facility] 4Result Comment: [05/06/2017] [facility]:[id number] Medications aspirin 81 mg oral delayed release tablet 1 tablet, By Mouth, Daily, # 90 tablet, 0 Refills, [facility] #19574, 167.64, cm, 04/21/21 13:13:00 EST, Height, 63.64, kg, 10/30/20 11:22:00 EDT, Dry Weight Start Date: 07/11/21 Status: Ordered atorvastatin 80 mg oral tablet 1 tablet = 80 mg, By Mouth, Daily at bedtime, # 90 tablet, 3 Refills, Maintenance, 02/12/21 10:54:00 EDT, Tablet, [facility] #[id number], 167.64, cm, 01/13/21 9:46:00 EDT, Height, 63.64, kg, 10/30/20 11:22:00 EDT, Dry Weight Start Date: 02/12/21 Stop Date: 02/07/22 Status: Ordered clopidogrel 75 mg oral tablet 75 mg, 1, tablet, By Mouth, Daily, # 30 tablet, Refills 11, Tot. Refills 11, Maintenance, 12/09/20 17:12:00 EDT, Route to Pharmacy Electronically, [facility] #[id number], Partial fill upon patient request if the prescription is for a schedule II... Start Date: 12/09/20 Status: Ordered EpiPen 2-Sameer 0.3 mg injectable kit = 0.3 mg, Intramuscular, Once, Must go to hospital if used, # 1 each, 1 Refills, Soft Stop, 01/09/21 14:45:00 EDT, [facility] #57707, 167.64, cm, 01/09/21 14:27:00 EDT, Height, 63.64, [...] 01/13/21 9:59:00 EDT, Route to Pharmacy Electronically, [facility] #[id number], Partial fill upon patient request if the prescription is for a schedule II opi... Start Date: 01/13/21 Status: Ordered multivitamin Multiple Vitamins oral tablet 1 tablet, By Mouth, Daily, # 90 tablet, 1 Refills, [facility] #[id number], 90, TAKE 1 TABLET BY MOUTH DAILY, 167.64, cm, 04/21/21 13:13:00 EST, Height, 63.64, kg, 10/30/20 11:22:00 EDT, Dry Weight Start Date: 07/10/21 Status: Ordered Nutritional Supplements See Instructions, # 90 each, Refills 11, Tot. Refills 11, Maintenance, High Protein Ensure Use TID DX Pancreatitis, Weight Loss ICD 10 K85.90 R63.4 3 [place] 3 Vanilla Height 5'6 Weight 130lbs, 12/20/20 7:33:00 EDT, Supply Start Date: 12/20/20 Status: Ordered omeprazole 40 mg oral enteric coated capsule 1 capsule = 40 mg, By Mouth, Daily, # 30 capsule, 2 Refills, Maintenance, 01/14/21 14:05:00 EDT, ECCapsule, [facility] #79671, 167.64, cm, 01/13/21 9:46:00 EDT, Height, 63.64, kg, 10/30/2110:22:00 EDT, Dry Weight Start Date: 01/14/21 Stop Date: 04/14/21 Status: Ordered PEG-3350 with Electrolytes (Eqv-GoLYTELY) oral powder for reconstitution See Instructions, 1 glass every 15-30 minutes until finished, # 4,000 mL, 0 Refills, Maintenance, 08/26/20 16:28:00 EDT, [facility] #89848, Partial fill upon patient request if the prescription is for a schedule II opioid drug., 1 glass ever... Start Date: 08/26/20 Status: Ordered ProAir HFA 90 mcg/inh inhalation aerosol with adapter 2, puffs, Inhalation, Every 6 hours, PRN, # 8.5 Gm, Refills 5, Tot. Refills 5, Maintenance, 07/04/20 8:18:00 EST, Aerosol, Route to Pharmacy Electronically, [id number], [facility] #[id number], 168, cm, 06/14/20 10:38:00... Start Date: 07/04/20 [...] capsule, Refills 1, Route to Pharmacy Electronically, [facility] #18722, 167.64, cm, 03/20/21 8:49:00 EDT, Height, 63.64, [...] FOR SLEEP, # 90 tablet, 1 Refills, [facility] #[id number], 167.64, cm, 03/20/21 8:49:00 EDT, Height, 63.64, [...] 2019. 2Repeat EGD in 07/2020 for surveillance 97178; repeat 2019 4R shoulder 2018 5Dr. Jimbo (ENT surgeons) Social History Social History Type Response Smoking Status Current every day herve toney entered on: 12/17/15 Sex
--- OUTSIDE RECORDS SUMMARY | 2022-12-14 11:00 | XMS_ITS | Continuity of Care Document ---
Author Name Unknown Organization [facility] Address [address] [place] [address]- Care Team Providers Care Shearer Screen Measurer And Trimmer Name Role Phone Casey Suarez MD Primary Care Physician [facility] Date(s): 05/12/21 - 06/11/21 [facility] [address] [place] [address]- Attending Physician: Admtr, Ar8 Admitting Physician: Admtr, [...] [facility] [address] 96996-610-04 2Result Comment: Pt tolerated well. [facility] #[id number] 3Location History: [facility] 4Result Comment: [05/06/2017] [facility]:4830-1751-89 Medications aspirin 81 mg oral delayed release tablet 81 mg, 1, tablet, By Mouth, Daily, # 90 tablet, Refills 1, Tot. Refills 1, Maintenance, 01/09/21 14:52:00 EDT, Route to Pharmacy Electronically, [facility] #[id number], Partial fill upon patientrequest if the prescription is for a schedule II op... Start Date: 01/09/21 Status: Ordered atorvastatin 80 mg oral tablet 1 tablet = 80 mg, By Mouth, Daily at bedtime, # 90 tablet, 3 Refills, Maintenance, 02/12/21 10:54:00 EDT, Tablet, [facility] #87766, 167.64, cm, 01/13/21 9:46:00 EDT, Height, 63.64, kg, 10/30/20 11:22:00 EDT, Dry Weight Start Date: 02/12/21 Stop Date: 02/07/22 Status: Ordered clopidogrel 75 mg oral tablet 75 mg, 1, tablet, By Mouth, Daily, # 30 tablet, Refills 11, Tot. Refills 11, Maintenance, 12/09/20 17:12:00 EDT, Route to Pharmacy Electronically, [facility] #[id number], Partial fill upon patient request if the prescription is for a schedule II... Start Date: 12/09/20 Status: Ordered EpiPen 2-Sameer 0.3 mg injectable kit = 0.3 mg, Intramuscular, Once, Must go to hospital if used, # 1 each, 1 Refills, Soft Stop, 01/09/21 14:45:00 EDT, [facility] #68930, 167.64, cm, 01/09/21 14:27:00 EDT, Height, 63.64, [...] 01/13/21 9:59:00 EDT, Route to Pharmacy Electronically, [facility] #[id number], Partial fill upon patient request if the prescription is for a schedule II opi... Start Date: 01/13/21 Status: Ordered multivitamin Multiple Vitamins oral tablet 1 tablet, By Mouth, Daily, # 90 tablet, 1 Refills, Maintenance, 01/09/21 14:44:00 EDT, Tablet, [facility] #11831, 1 tablet By Mouth Daily, 167.64, cm, 01/09/21 14:27:00 EDT, Height, 63.64, kg, 10/30/20 11:22:00 EDT, Dry Weight Start Date: 01/09/21 Status: Ordered Nutritional Supplements See Instructions, # 90 each, Refills 11, Tot. Refills 11, Maintenance, High Protein Ensure Use TID DX Pancreatitis, Weight Loss ICD 10 K85.90 R63.4 3 [place] 3 Vanilla Height 5'6 Weight 130lbs, 12/20/20 7:33:00 EDT, Supply Start Date: 12/20/20 Status: Ordered omeprazole 40 mg oral enteric coated capsule 1 capsule = 40 mg, By Mouth, Daily, # 30 capsule, 2 Refills, Maintenance, 01/14/21 14:05:00 EDT, ECCapsule, [facility] #27783, 167.64, cm, 01/13/21 9:46:00 EDT, Height, 63.64, kg, 10/30/2110:22:00 EDT, Dry Weight Start Date: 01/14/21 Stop Date: 04/14/21 Status: Ordered PEG-3350 with Electrolytes (Eqv-GoLYTELY) oral powder for reconstitution See Instructions, 1 glass every 15-30 minutes until finished, # 4,000 mL, 0 Refills, Maintenance, 08/26/20 16:28:00 EDT, [facility] #30070, Partial fill upon patient request if the prescription is for a schedule II opioid drug., 1 glass ever... Start Date: 08/26/20 Status: Ordered ProAir HFA 90 mcg/inh inhalation aerosol with adapter 2, puffs, Inhalation, Every 6 hours, PRN, # 8.5 Gm, Refills 5, Tot. Refills 5, Maintenance, 07/04/20 8:18:00 EST, Aerosol, Route to Pharmacy Electronically, [id number], [facility] #[id number], 168, cm, 06/14/20 10:38:00... Start Date: 07/04/20 [...] capsule, Refills 1, Route to Pharmacy Electronically, [facility] #[id number], 167.64, cm, 03/20/21 8:49:00 EDT, Height, 63.64, [...] FOR SLEEP, # 90 tablet, 1 Refills, [facility] #55196, 167.64, cm, 03/20/21 8:49:00 EDT, Height, 63.64, [...] 2018. 2Repeat EGD in 07/2020 for surveillance 89463; repeat 2019 4R shoulder 2018 5DrShabnam Choi (ENT surgeons) Social History Social History Type Response Smoking Status Current every day herve toney entered on: 12/17/15 Sex
--- OUTSIDE RECORDS SUMMARY | 2022-12-14 11:00 | XMS_ITS | Continuity of Care Document ---
Author Name Unknown Organization [facility] [place] Address [address] [place] [address]- Care Team Providers Care Mold Car Pusher Name Role Phone Casey Suarez MD Primary Care Physician [facility] Date[facility]s): 03/07/21 - 04/06/21 [facility] Adult [address] [place] [address]- Allergies, Adverse Reactions, Alerts Substance Reaction Severity [...] en Parent Or Guardian Refuses 1Result Comment: [facility]# [address] [phone] 2Result Comment: Pt tolerated well. [facility] #[id number] 3Location History: [facility] 4Result Comment: [05/06/2017] [facility]:1785-3973-29 Medications aspirin 81 mg oral delayed release tablet 81 mg, 1, tablet, By Mouth, Daily, # 90 tablet, Refills 1, Tot. Refills 1, Maintenance, 01/09/21 14:52:00 EDT, Route to Pharmacy Electronically, [facility] #81120, Partial fill upon patientrequest if the prescription is for a schedule II op... Start Date: 01/09/21 Status: Ordered atorvastatin 80 mg oral tablet 1 tablet = 80 mg, By Mouth, Daily at bedtime, # 90 tablet, 3 Refills, Maintenance, 02/12/21 10:54:00 EDT, Tablet, [facility] #80911, 167.64, cm, 01/13/21 9:46:00 EDT, Height, 63.64, kg, 10/30/20 11:22:00 EDT, Dry Weight Start Date: 02/12/21 Stop Date: 02/07/22 Status: Ordered clopidogrel 75 mg oral tablet 75 mg, 1, tablet, By Mouth, Daily, # 30 tablet, Refills 11, Tot. Refills 11, Maintenance, 12/09/20 17:12:00 EDT, Route to Pharmacy Electronically, [facility] #32817, Partial fill upon patient request if the prescription is for a schedule II... Start Date: 12/09/20 Status: Ordered EpiPen 2-Sameer 0.3 mg injectable kit = 0.3 mg, Intramuscular, Once, Must go to hospital if used, # 1 each, 1 Refills, Soft Stop, 01/09/21 14:45:00 EDT, [facility] #15921, 167.64, cm, 01/09/21 14:27:00 EDT, Height, 63.64, [...] 01/13/21 9:59:00 EDT, Route to Pharmacy Electronically, [facility] #70141, Partial fill upon patient request if the prescription is for a schedule II opi... Start Date: 01/13/21 Status: Ordered multivitamin Multiple Vitamins oral tablet 1 tablet, By Mouth, Daily, # 90 tablet, 1 Refills, Maintenance, 01/09/21 14:44:00 EDT, Tablet, [facility] #64231, 1 tablet By Mouth Daily, 167.64, cm, 01/09/21 14:27:00 EDT, Height, 63.64, kg, 10/30/20 11:22:00 EDT, Dry Weight Start Date: 01/09/21 Status: Ordered Nutritional Supplements See Instructions, # 90 each, Refills 11, Tot. Refills 11, Maintenance, High Protein Ensure Use TID DX Pancreatitis, Weight Loss ICD 10 K85.90 R63.4 3 [place] 3 Vanilla Height 5'6 Weight 130lbs, 12/20/20 7:33:00 EDT, Supply Start Date: 12/20/20 Status: Ordered omeprazole 40 mg oral enteric coated capsule 1 capsule = 40 mg, By Mouth, Daily, # 30 capsule, 2 Refills, Maintenance, 01/14/21 14:05:00 EDT, ECCapsule, [facility] #08056, 167.64, cm, 01/13/21 9:46:00 EDT, Height, 63.64, kg, 10/30/2110:22:00 EDT, Dry Weight Start Date: 01/14/21 Stop Date: 04/14/21 Status: Ordered PEG-3350 with Electrolytes (Eqv-GoLYTELY) oral powder for reconstitution See Instructions, 1 glass every 15-30 minutes until finished, # 4,000 mL, 0 Refills, Maintenance, 08/26/20 16:28:00 EDT, [facility] #02859, Partial fill upon patient request if the prescription is for a schedule II opioid drug., 1 glass ever... Start Date: 08/26/20 Status: Ordered ProAir HFA 90 mcg/inh inhalation aerosol with adapter 2, puffs, Inhalation, Every 6 hours, PRN, # 8.5 Gm, Refills 5, Tot. Refills 5, Maintenance, 07/04/20 8:18:00 EST, Aerosol, Route to Pharmacy Electronically, [id number], [facility] #80901, 168, cm, 06/14/20 10:38:00... Start Date: 07/04/20 [...] 10/16/20 8:15:00 EDT, Route to Pharmacy Electronically, [facility] #[id number], Partial fill upon patient request, 168, cm, [...] 90 tablet, 1 Refills, Maintenance,10/16/20 8:15:00 EDT, [facility] #88242, 168, cm, 10/16/20 7:49:00 EDT, Height, 60, [...] 2019. 2Repeat EGD in 07/2020 for surveillance 88154; repeat 2019 4R shoulder 2018 5Dr. Jimbo (ENT surgeons) Social History Social History Type Response Smoking Status Current every day herve toney entered on: 12/17/15 Sex
--- OUTSIDE RECORDS SUMMARY | 2022-12-14 11:00 | XMS_ITS | Continuity of Care Document ---
Author Name Unknown Organization [facility] Address [address] [place] [id number]- Care Team Providers Care Program Coordinator For Residence Life Name Role Phone Casey Suarez MD Primary Care Physician [place] [facility] [place]07[place] 11/11/19 [facility] [address] [place] [address]- [facility] Attending Physician: Zev Marquis MD Admitting Physician: Zev Marquis MD Referring Physician: Casey Suarez MD Allergies, Adverse Reactions, [...] Refuses 1Result Comment: Pt tolerated well. [facility] #[id number] 2Location History: [facility] 3Result Comment: [05/06/2017] [facility]:7074-0673-84 Medications albuterol 0.083% inhalation solution 3 mL [...] capsule, 3 Refills, Maintenance, 08/07/19 11:39:00 EDT, [facility] #77633, 1 capsule By Mouth 3 times a [...] 05/04/19 14:51:08 EST, Route to Pharmacy Electronically, [id number], [facility] #[id number], 168, cm, 05/02/19 8:32:30... Start Date: 05/04/19 Stop Date: 09/01/19 Status: Ordered lisinopril 10 mg oral tablet See Instructions, TAKE 1 TABLET BY MOUTH EVERY DAY, # 30 tablet, Refills 5, Tot. Refills 5, Soft Stop, 08/28/19 10:33:00 EDT, Instructions Replace Required Details, Route to Pharmacy Electronically, [facility] #[id number], 168, cm, 08/07/19 9:46:... Start Date: 08/28/19 [...] 10 Refills, Maintenance, 08/14/19 8:52:00 EDT, ECCapsule, [facility] #01156, 168, cm, 08/07/19 9:46:00 EDT, Height, 63.5, [...] 16:26:00 EST, Aerosol, Route to Pharmacy Electronically, [id number], [facility] #95055, 168, cm, 07/24/19 9:01:00... Start Date: 07/24/19 [...] 30 tablet, 5 Refills, Maintenance,06/27/19 16:32:00 EST, [facility] #05917, 168, cm, 05/19/19 8:56:00 EST, Height, 57.4, [...] 2019. 2Repeat EGD in 07/2020 for surveillance 13781; repeat 2019 4R shoulder 2018 5Dr. Jimbo (ENT surgeons) Social History Social History Type Response Smoking Status Current every day herve toney entered on: 12/17/15 Sex
--- OUTSIDE RECORDS SUMMARY | 2022-12-14 11:00 | XMS_ITS | Continuity of Care Document ---
Author Name Unknown Organization [facility] Address Unknown Care Team Providers Care Quirk Sander Name Role Phone Casey Suarez MD Primary Care Physician [place] [facility] [place] 01/18/22 [facility] Allergies, Adverse Reactions, Alerts [...] Comment: [facility]# [address] [phone] 2Result Comment: Pt tolerated well. [facility] #[id number] 3Location History: [facility] 4Result Comment: [05/06/2017] [facility]:8099-9075-19 Medications aspirin 81 mg oral delayed release tablet 1 tablet, By Mouth, Daily, # 90 tablet, 0 Refills, [facility] #40043, 167.6, cm, 228:27:00 EDT, Height, 63.6, kg, 09/22/21 9:54:00 EDT, Dry Weight Start Date: 01/08/22 Status: Ordered atorvastatin 80 mg oral tablet 1 tablet = 80 mg, By Mouth, Daily at bedtime, # 90 tablet, 3 Refills, Maintenance, 08/14/21 15:28:00 EDT, Tablet, [facility] #09848, 167.64, cm, 08/14/21 15:12:00 EDT, Height, 63.64, kg, 10/30/20 11:22:00 EDT, Dry Weight Start Date: 08/14/21 Stop Date: 08/09/22 Status: Ordered clopidogrel 75 mg oral tablet 75 mg, 1, tablet, By Mouth, Daily, # 30 tablet, Refills 11, Tot. Refills 11, Maintenance, 12/09/20 17:12:00 EDT, Route to Pharmacy Electronically, [facility] #13195, Partial fill upon patient request if the prescription is for a schedule II... Start Date: 12/09/20 Status: Ordered EpiPen 2-Sameer 0.3 mg injectable kit = 0.3 mg, Intramuscular, Once, Must go to hospital if used, # 1 each, 1 Refills, Soft Stop, 01/09/21 14:45:00 EDT, [facility] #76243, 167.64, cm, 01/09/21 14:27:00 EDT, Height, 63.64, kg, 10/30/20 11:22:00 EDT, Dry Weight Start Date: 01/09/21 Status: Ordered gabapentin 300 mg oral capsule 600 mg, 2, capsule, By Mouth, 2 times a day, # 120 capsule, Refills 0, Tot. Refills 0, Maintenance,01/08/22 8:39:00 EDT, Route to Pharmacy Electronically, [facility] #08008, Partial fill upon patient request, 167.6, cm, [...] Mouth, Daily, # 90 tablet, 1 Refills, [facility] #17855, 167.6, cm, :54:00 EDT, Height, 63.6, kg, 09/22/21 9:54:00 EDT, Dry Weight Start Date: 10/06/21 Status: Ordered multivitamin Multiple Vitamins oral tablet 1 tablet, By Mouth, Daily, # 90 tablet, 1 Refills, [facility] #02503, 90, TAKE 1 TABLET BY MOUTH DAILY, 167.64, cm, 04/21/21 13:13:00 EST, Height, 63.64, kg, 10/30/20 11:22:00 EDT, Dry Weight Start Date: 07/10/21 Status: Ordered Nutritional Supplements See Instructions, # 90 each, Refills 11, Tot. Refills 11, Maintenance, High Protein Ensure Use TID DX Pancreatitis, Weight Loss ICD 10 K85.90 R63.4 3 [place] 3 Vanilla Height 5'6 Weight 130lbs, 12/20/20 7:33:00 EDT, Supply Start Date: 12/20/20 Status: Ordered omeprazole 40 mg oral enteric coated capsule 1 capsule, By Mouth, Daily, # 30 capsule, 2 Refills, [facility] #81422, 167.6, cm, 11/06/21 15:13:00 EDT, Height, 63.6, kg, 09/22/21 9:54:00 EDT, Dry Weight Start Date: 12/10/21 Status: Ordered PEG-3350 with Electrolytes (Eqv-GoLYTELY) oral powder for reconstitution See Instructions, 1 glass every 15-30 minutes until finished, # 4,000 mL, 0 Refills, Maintenance, 08/26/20 16:28:00 EDT, [facility] #58686, Partial fill upon patient request if the prescription is for a schedule II opioid drug., 1 glass ever... Start Date: 08/26/20 Status: Ordered ProAir HFA 90 mcg/inh inhalation aerosol with adapter 2, puffs, Inhalation, Every 6 hours, PRN, # 8.5 Gm, Refills 5, Tot. Refills 5, Maintenance, 07/04/20 8:18:00 EST, Aerosol, Route to Pharmacy Electronically, [id number], [facility] #48784, 168, cm, 06/14/20 10:38:00... Start Date: 07/04/20 [...] capsule, Refills 1, Route to Pharmacy Electronically, [facility] #60654, 167.6, cm, 09/22/21 9:54:00 EDT, Height, 63.6, [...] FOR SLEEP, # 90 tablet, 1 Refills, [facility] #95499, 167.6, cm, 09/22/21 9:54:00 EDT, Height, 63.6, [...] 2018. 2Repeat EGD in 07/2020 for surveillance 92855; repeat 2019 4R shoulder [address] 5Dr[address] Jimbo (ENT surgeons) Social History Social History Type Response Smoking Status Current every day herve toney entered on: 12/17/15 Sex
--- OUTSIDE RECORDS SUMMARY | 2022-12-14 11:00 | XMS_ITS | Continuity of Care Document ---
Author Name Unknown Organization [facility] [place] [place] Address [address] [place] [address]- Care Team Providers Care Residential Appraiser Name Role Phone Casey Suarez MD Primary Care Physician [phone] Encounter [facility] Date(s): 06/09/22 - 07/09/22 [facility] Adult [address] [place] [address]- Attending Physician: Admtr, Ar8 Admitting Physician: Admtr, [...] Refuses 1Result Comment: [facility]# [id number] 2Result Comment: [facility]# [address] [phone] 3Result Comment: Pt tolerated well. [facility] #72796-984-71 4Location History: [facility] 5Result Comment: [05/06/2017] [facility]:8330-5674-69 Medications aspirin 81 mg oral delayed release tablet 1 tablet, By Mouth, Daily, # 90 tablet, 3 Refills, Maintenance, 06/09/22 10:43:00 EST, [facility] #06358, 167.6, cm, 06/09/22 10:24:00 EST, Height, 63.6, kg, 09/22/21 9:54:00 EDT, Dry Weight Start Date: 06/09/22 Status: Ordered atorvastatin 80 mg oral tablet 1 tablet, By Mouth, Daily at bedtime, # 90 tablet, 1 Refills, Maintenance, 03/06/22 12:15:00 EDT, [facility] #31273, 167.6, cm, 01/08/22 8:27:00 EDT, Height, 63.6, kg, 09/22/21 9:54:00 EDT,Dry Weight Start Date: 03/06/22 Status: Ordered EpiPen 2-Sameer 0.3 mg injectable kit = 0.3 mg, Intramuscular, Once, Must go to hospital if used, # 1 each, 1 Refills, Soft Stop, 01/09/21 14:45:00 EDT, [facility] #65933, 167.64, cm, 01/09/21 14:27:00 EDT, Height, 63.64, kg, 10/30/20 11:22:00 EDT, Dry Weight Start Date: 01/09/21 Status: Ordered gabapentin 300 mg oral capsule 2, capsule, By Mouth, 2 times a day, # 120 capsule, Refills 1, Tot. Refills 1, Maintenance, 07/06/22 9:45:00 EST, Route to Pharmacy Electronically, [facility] #47296, 167.6, cm, 06/16/22 7:22:00 EST, Height, 63.6, kg, 09/22/21 9:54:00 EDT, D... Start Date: 07/06/22 Status: Ordered Large Blood Pressure Cuff Large [...] opioid drug. Start Date: 03/19/22 Status: Ordered multivitamin Multiple Vitamins oral tablet 1 tablet, By Mouth, Daily, # 90 tablet, 3 Refills, Maintenance, 06/09/22 10:44:00 EST, [facility] #21653, 90, 1 tablet By Mouth Daily, 167.6, cm, 06/09/22 10:24:00 EST, Height, 63.6, kg, 09/22/21 9:54:00 EDT, Dry Weight Start Date: 06/09/22 Status: Ordered Nutritional Supplements See Instructions, # 90 each, Refills 11, Tot. Refills 11, Maintenance, High Protein Ensure Use TID DX Pancreatitis, Weight Loss ICD 10 K85.90 R63.4 3 [place] 3 Vanilla Height 5'6 Weight 130lbs, 12/20/20 7:33:00 EDT, Supply Start Date: 12/20/20 Status: Ordered omeprazole 40 mg oral enteric coated capsule 1 capsule, By Mouth, Daily, # 30 capsule, 2 Refills, Maintenance, 05/29/22 17:58:00 EST, [facility] #76604, 167.6, cm, 03/19/22 9:24:00 EDT, Height, 63.6, kg, 09/22/21 9:54:00 EDT, Dry Weight Start Date: 05/29/22 Status: Ordered PEG-3350 with Electrolytes (Eqv-GoLYTELY) oral powder for reconstitution See Instructions, 1 glass every 15-30 minutes until finished, # 4,000 mL, 0 Refills, Maintenance, 08/26/20 16:28:00 EDT, [facility] #86045, Partial fill upon patient request if the prescription is for a schedule II opioid drug., 1 glass ever... Start Date: 08/26/20 Status: Ordered ProAir HFA 90 mcg/inh inhalation aerosol with adapter 2, puffs, Inhalation, Every 6 hours, PRN, # 8.5 Gm, Refills 5, Tot. Refills 5, Maintenance, 07/04/20 8:18:00 EST, Aerosol, Route to Pharmacy Electronically, [id number], [facility] #[id number], 168, cm, 06/14/20 10:38:00... 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 2Repeat EGD in 07/2020 for surveillance 87769; repeat 2019 4R shoulder 2018 5DrShabnam Choi (ENT surgeons) Social History Social History Type Response Smoking Status 10 or more cigarette s (1/2 pack or more)/day in last 30 days entered on: 03/13/22 Sex Note * Event Display: MRI Spine, Non- BH Authored Date: * Event Display: Non BH Lab Results Authored Date: * Event Display: X-Ray Hand/Wrist Authored Date: * Event Display: CT Scan Head, Non- BH Authored Date: XR Skull Views * Event Display: X-Ray Head Authored Date: CT Head * Event Display: CT Scan Head Authored Date: Deprecated MR Spine study * Event Display: MRI Spine Authored Date: Patient Care team information Care Team Personnel Name: April Landrum RN Position: [facility] RN Member Role: Primary Care Nurse Name: Talib Jensen RN Position: [facility] RN Member Role: Primary Care Nurse Name: Casey Suarez MD Position: [facility] Primary Care Physician Member Role: PCP Address: Address: [address] [place] [address]- Name: Frida Urban RN Position: [facility] RN Member Role: Primary Care Nurse Name: Betty Rodriguez RN Position: [facility] RN Member Role: Primary Care Nurse Name: Damon Elaine RN Position: [facility] RN Member Role: Primary Care Nurse Name: Neelima Manrique RN Position: [facility] RN Member Role: Primary Care Nurse Name: Maddison Lindquist RN Position: [facility] RN Member Role: Primary Care Nurse Name: Mahesh Castillo RN Position: [facility] RN Member Role: Primary Care Nurse Name: Desiree Caballero RN Position: [facility] Call Center Operator Member Role: Primary Care Nurse Name: Melvina Palacios RN Position: S RN Member Role: Primary Care Nurse Name: Diandra Méndez RN Position: S RN Member Role: Primary Care Nurse Care Team Related Persons Name: LAYLA NARAYANAN Address: [address] [address]
--- OUTSIDE RECORDS SUMMARY | 2022-12-14 11:00 | XMS_ITS | Continuity of Care Document ---
Author Name Unknown Organization [facility] [place] Address [address] [place] [address]- Care Team Providers Care Biometrics Technician Name Role Phone Daniela BROWN, Casey Jiménez Primary Care Physician [phone] Encounter [facility] Date(s): 06/14/20 - 06/21/20 [facility] Adult [address] [place] [address]- Encounter Diagnosis Chills(Discharge Diagnosis) - 06/14/20 Diarrhea(Discharge Diagnosis) - 06/14/20 Attending Physician: Not on Staff, Attending MD Referring Physician: Josey OSORIO, Tyra Willis Allergies, Adverse [...] Refuses 1Result Comment: Pt tolerated well. [facility] #[id number] 2Location History: [facility] 3Result Comment: [05/06/2017] [facility]:0117-4841-43 Medications albuterol 0.083% inhalation solution 3 mL = 2.5 mg, Inhalation, Every 6 hours, # 120 each, 2 Refills, Maintenance, 04/30/20 11:23:00 EST, Solution, [facility] #[id number], 168, cm, 04/30/20 11:04:00 EST, Height, 63.5, kg, 08/07/19 9:46:00 EDT, Dry Weight Start Date: 04/30/20 Status: Ordered Creon 36,000 units oral delayed release capsule 1 capsule, By Mouth, 3 times a day, with each meal, # 90 capsule, 3 Refills, Maintenance, 08/07/19 11:39:00 EDT, [facility] #[id number], 1 capsule By Mouth 3 times a [...] 04/22/20 13:38:00 EST, Route to Pharmacy Electronically, [facility] #[id number], Partial fill upon patient request, 168, cm, [...] 5 Refills, Maintenance, 04/22/20 13:08:00 EST, Tablet, [facility] #[id number], 1 tablet By Mouth Daily,x30 days, 168, cm, 04/22/20 12:49:00 EST, Height, 63.5, kg, 08/07/19 9:46:00 EDT, Dry Weight Start Date: 04/22/20 Stop Date: 10/19/20 Status: Ordered omeprazole 40 mg oral enteric coated capsule 1 capsule = 40 mg, By Mouth, Daily, # 30 capsule, 10 Refills, Maintenance, 04/22/20 13:08:00 EST, EC Capsule, [facility] #[id number], 168, cm, 04/22/20 12:49:00 EST, Height, 63.5, [...] 13:08:00 EST, Aerosol, Route to Pharmacy Electronically, [id number], [facility] #[id number], 168, cm, 04/22/20 12:49:00... Start Date: 04/22/20 Status: Ordered tamsulosin 0.4 mg oral capsule 0.4 mg, 1, capsule, By Mouth, Daily, PER TYRA HODGES, # 90 capsule, Refills 1, Tot. Refills 1, Maintenance, 04/29/20 16:06:00 EST, Route to Pharmacy Electronically, [facility] #[id number],Partial fill upon patient request, 168, cm, ... Start Date: 04/29/20 Status: Ordered tiZANidine 4 mg oral capsule 2 capsule = 8 mg, By Mouth, 3 times a day, 0 Refills, Maintenance, 10/13/19 10:32:00 EDT Start Date: 10/13/19 Status: Ordered traZODone 150 mg oral tablet 1 tablet, By Mouth, Daily at bedtime, PRN NEEDED FOR SLEEP, # 30 tablet, 5 Refills, Maintenance,04/22/20 13:08:00 EST, [facility] #[id number], 168, cm, 04/22/20 12:49:00 EST, Height, 63.5, [...] 2018. 2Repeat EGD in 07/2020 for surveillance 13775; repeat 2019 4R shoulder 2018 5DrShabnam Choi (ENT surgeons) Diagnosis Diagnosis Type Effective Dates Health Status Clini [facility] Service Informant Chills Discharge Diagnosis 06/14/20 Diarrhea Discharge Diagnosis 06/14/20 Vital Signs Most recent to oldest [Reference Range]: 1 Height 168 cm (06/14/20 10:38 AM) Weight 62.4 kg (06/14/20 10:38 AM) Oxygen Saturation [94-100 %] 98 % (06/14/20 10:38 AM) Pulse Rate [55-90 bpm] 67 bpm (06/14/20 10:38 AM) Body Mass Index [18.5-24.99] 22.11 (06/14/20 10:38 AM) Blood Pressure [90-138/55-84 mm Hg] 118/ 70mm Hg (06/14/20 10:38 AM) Blood pressure sites Arm, left (06/14/20 10:38 AM) Social History Social History Type Response Smoking Status Current every day herve toney entered on: 12/17/15 Sex
--- OUTSIDE RECORDS SUMMARY | 2022-12-14 11:00 | XMS_ITS | Continuity of Care Document ---
Author Name Unknown Organization [facility] [place] Address [address] [place] [address]- Care Team Providers Care Website Designer Name Role Phone Casey Suarez MD Primary Care Physician [phone] Encounter [facility] [place] Date(s): 10/30/21 - 11/29/21 [facility] Adult [address] [place] [address]- Allergies, Adverse Reactions, Alerts Substance Reaction Severity [...] Parent Or Guardian Refuses 1Result Comment: [facility]# [address] [id number] 2Result Comment: Pt tolerated well. [facility] #[id number] 3Location History: [facility] 4Result Comment: [05/06/2017] [facility]:[id number] Medications aspirin 81 mg oral delayed release tablet 1 tablet, By Mouth, Daily, # 90 tablet, 0 Refills, [facility] #[id number], 167.6, cm, :54:00 EDT, Height, 63.6, kg, 09/22/21 9:54:00 EDT, Dry Weight Start Date: 10/10/21 Status: Ordered atorvastatin 80 mg oral tablet 1 tablet = 80 mg, By Mouth, Daily at bedtime, # 90 tablet, 3 Refills, Maintenance, 08/14/21 15:28:00 EDT, Tablet, [facility] #[id number], 167.64, cm, 08/14/21 15:12:00 EDT, Height, 63.64, kg, 10/30/20 11:22:00 EDT, Dry Weight Start Date: 08/14/21 Stop Date: 08/09/22 Status: Ordered clopidogrel 75 mg oral tablet 75 mg, 1, tablet, By Mouth, Daily, # 30 tablet, Refills 11, Tot. Refills 11, Maintenance, 12/09/20 17:12:00 EDT, Route to Pharmacy Electronically, [facility] #[id number], Partial fill upon patient request if the prescription is for a schedule II... Start Date: 12/09/20 Status: Ordered EpiPen 2-Sameer 0.3 mg injectable kit = 0.3 mg, Intramuscular, Once, Must go to hospital if used, # 1 each, 1 Refills, Soft Stop, 01/09/21 14:45:00 EDT, [facility] #[id number], 167.64, cm, 01/09/21 14:27:00 EDT, Height, 63.64, [...] Mouth, Daily, # 90 tablet, 1 Refills, [facility] #48824, 167.6, cm, :54:00 EDT, Height, 63.6, kg, 09/22/21 9:54:00 EDT, Dry Weight Start Date: 10/06/21 Status: Ordered multivitamin Multiple Vitamins oral tablet 1 tablet, By Mouth, Daily, # 90 tablet, 1 Refills, [facility] #[id number], 90, TAKE 1 TABLET BY MOUTH DAILY, 167.64, cm, 04/21/21 13:13:00 EST, Height, 63.64, kg, 10/30/20 11:22:00 EDT, Dry Weight Start Date: 07/10/21 Status: Ordered Nutritional Supplements See Instructions, # 90 each, Refills 11, Tot. Refills 11, Maintenance, High Protein Ensure Use TID DX Pancreatitis, Weight Loss ICD 10 K85.90 R63.4 3 [place] 3 Vanilla Height 5'6 Weight 130lbs, 12/20/20 7:33:00 EDT, Supply Start Date: 12/20/20 Status: Ordered omeprazole 40 mg oral enteric coated capsule 1 capsule = 40 mg, By Mouth, Daily, # 30 capsule, 2 Refills, Maintenance, 09/10/21 14:25:00 EDT, ECCapsule, [facility] #38892, 167.64, cm, 09/01/21 8:31:00 EDT, Height, 63.64, kg, 10/30/2110:22:00 EDT, Dry Weight Start Date: 09/10/21 Stop Date: 12/09/21 Status: Ordered Paxlovid 150 mg-100 mg oral tablet See Instructions, follow package instructions, not renally impaired, # 30 tablet, 0 Refills, Maintenance, 09/23/21 15:45:00 EDT, [facility] #[id number], Partial fill upon patient request if the prescription is for a schedule II opioid drug., foll... Start Date: 09/23/21 Status: Ordered PEG-3350 with Electrolytes (Eqv-GoLYTELY) oral powder for reconstitution See Instructions, 1 glass every 15-30 minutes until finished, # 4,000 mL, 0 Refills, Maintenance, 08/26/20 16:28:00 EDT, [facility] #50279, Partial fill upon patient request if the prescription is for a schedule II opioid drug., 1 glass ever... Start Date: 08/26/20 Status: Ordered ProAir HFA 90 mcg/inh inhalation aerosol with adapter 2, puffs, Inhalation, Every 6 hours, PRN, # 8.5 Gm, Refills 5, Tot. Refills 5, Maintenance, 07/04/20 8:18:00 EST, Aerosol, Route to Pharmacy Electronically, [id number], [facility] #05519, 168, cm, 06/14/20 10:38:00... Start Date: 07/04/20 [...] capsule, Refills 1, Route to Pharmacy Electronically, [facility] #00734, 167.6, cm, 09/22/21 9:54:00 EDT, Height, 63.6, [...] FOR SLEEP, # 90 tablet, 1 Refills, [facility] #28955, 167.6, cm, 09/22/21 9:54:00 EDT, Height, 63.6, [...] 2018. 2Repeat EGD in 07/2020 for surveillance 08690; repeat 2019 4R shoulder 2018 5DrShabnam Choi (ENT surgeons) Social History Social History Type Response Smoking Status Current every day herve toney entered on: 12/17/15 Sex
--- OUTSIDE RECORDS SUMMARY | 2022-12-14 11:00 | XMS_ITS | Continuity of Care Document ---
Author Name Unknown Organization [facility] [place] Address [address] [place] [address]- Care Team Providers Care Joint Terminal Attack Controller Name Role Phone Casey Suarez MD Primary Care Physician Encounter [facility] Date(s): 06/04/22 - 07/04/22 [facility] Adult [address] [place] [address]- Allergies, Adverse Reactions, Alerts Substance Reaction Severity [...] Guardian Refuses 1Result Comment: [facility]# [id number] 2Result Comment: [facility]# [address] [phone] 3Result Comment: Pt tolerated well. [facility] #[id number] 4Location History: [facility] 5Result Comment: [05/06/2017] [facility]:[id number] Medications aspirin 81 mg oral delayed release tablet 1 tablet, By Mouth, Daily, # 90 tablet, 3 Refills, Maintenance, 06/09/22 10:43:00 EST, [email or web address] #07961, 167.6, cm, 06/09/22 10:24:00 EST, Height, 63.6, kg, 09/22/21 9:54:00 EDT, Dry Weight Start Date: 06/09/22 Status: Ordered atorvastatin 80 mg oral tablet 1 tablet, By Mouth, Daily at bedtime, # 90 tablet, 1 Refills, Maintenance, 03/06/22 12:15:00 EDT, [email or web address] #13646, 167.6, cm, 01/08/22 8:27:00 EDT, Height, 63.6, kg, 09/22/21 9:54:00 EDT,Dry Weight Start Date: 03/06/22 Status: Ordered EpiPen 2-Sameer 0.3 mg injectable kit = 0.3 mg, Intramuscular, Once, Must go to hospital if used, # 1 each, 1 Refills, Soft Stop, 01/09/21 14:45:00 EDT, [email or web address] #13350, 167.64, cm, 01/09/21 14:27:00 EDT, Height, 63.64, kg, 10/30/20 11:22:00 EDT, Dry Weight Start Date: 01/09/21 Status: Ordered gabapentin 300 mg oral capsule 2, capsule, By Mouth, 2 times a day, # 120 capsule, Refills 1, Maintenance, 04/29/22 15:21:00 EST, Route to Pharmacy Electronically, [email or web address] #[id number], 167.6, cm, 03/19/22 9:24:00 EDT, Height, 63.6, kg, 09/22/21 9:54:00 EDT, Dry Weight Start Date: 04/29/22 Status: Ordered Large Blood Pressure Cuff Large [...] 90 tablet, 3 Refills, Maintenance, 06/09/22 10:44:[facility], 90, 1 tablet By Mouth Daily, 167.6, cm, 06/09/22 10:24:00 EST, Height, 63.6, kg, 09/22/21 9:54:00 EDT, Dry Weight Start Date: 06/09/22 Status: Ordered Nutritional Supplements See Instructions, # 90 each, Refills 11, Tot. Refills 11, Maintenance, High Protein Ensure Use TID DX Pancreatitis, Weight Loss ICD 10 K85.90 R63.4 3 [place] 3 Vanilla Height 5'6 Weight 130lbs, 12/20/20 7:33:00 EDT, Supply Start Date: 12/20/20 Status: Ordered omeprazole 40 mg oral enteric coated capsule 1 capsule, By Mouth, Daily, # 30 capsule, 2 Refills, Maintenance, 05/29/22 17:58:00 EST, [email or web address] #59383, 167.6, cm, 03/19/22 9:24:00 EDT, Height, 63.6, kg, 09/22/21 9:54:00 EDT, Dry Weight Start Date: 05/29/22 Status: Ordered PEG-3350 with Electrolytes (Eqv-GoLYTELY) oral powder for reconstitution See Instructions, 1 glass every 15-30 minutes until finished, # 4,000 mL, 0 Refills, Maintenance, 08/26/20 16:28:00 EDT, [facility] #26952, Partial fill upon patient request if the prescription is for a schedule II opioid drug., 1 glass ever... Start Date: 08/26/20 Status: Ordered ProAir HFA 90 mcg/inh inhalation aerosol with adapter 2, puffs, Inhalation, Every 6 hours, PRN, # 8.5 Gm, Refills 5, Tot. Refills 5, Maintenance, 07/04/20 8:18:00 EST, Aerosol, Route to Pharmacy Electronically, [id number], [facility] #27351, 168, cm, 06/14/20 10:38:00... Start Date: 07/04/20 [...] 04/07/22 13:27:00 EST, Route to Pharmacy Electronically, [facility] #24535, 167.6, cm, 03/19/22 9:24:00 EDT, Height, 63.6,kg, [...] 90 tablet, 0 Refills, Maintenance,04/07/22 15:37:00 EST, [facility] #66214, 167.6, cm, 03/19/22 9:24:00 EDT, Height, 63.6, [...] Confirmed Active 1Atherosclerosis by lumbar spine x-ray 2019. 2Repeat EGD in 07/2020 for surveillance 16637; repeat 2019 4R shoulder [address] 5Dr. Kelviner (ENT surgeons) Social History Social History Type Response Smoking Status 10 or more cigarette s (1/2 pack or more)/day in last 30 days entered on: 03/13/22 Sex Patient Care team information Care Team Personnel Name: April Landrum RN Position: [facility] RN Member Role: Primary Care Nurse Name: Talib Jensen RN Position: [facility] RN Member Role: Primary Care Nurse Name: Casey Suarez MD Position: [facility] Primary Care Physician Member Role: PCP Address: Address: [address] [place] [id number] Name: Frida Urban RN Position: [facility] RN Member Role: Primary Care Nurse Name: Betty Rodriguez RN Position: [facility] RN Member Role: Primary Care Nurse Name: Damon Elaine RN Position: [facility] SN RN Member Role: Primary Care Nurse Name: Neelima Manrique RN Position: [facility] RN Member Role: Primary Care Nurse Name: Maddison Lindquist RN Position: [facility] SN RN Member Role: Primary Care Nurse Name: Mahesh Castillo RN Position: [facility] RN Member Role: Primary Care Nurse Name: Desiree Caballero RN Position: [facility] Supervisor Frame Sample And Pattern Member Role: Primary Care Nurse Name: Melvina Palacios RN Position: [facility] RN Member Role: Primary Care Nurse Name: Diandra Méndez RN Position: [facility] RN Member Role: Primary Care Nurse Care Team Related Persons Name: LAYLA NARAYANAN Address: [address] [address]
--- OUTSIDE RECORDS SUMMARY | 2022-12-14 11:00 | XMS_ITS | Continuity of Care Document ---
Author Name Unknown Organization [facility] [place] Address [address] [place] [address]- Care Team Providers Care Night Guard Name Role Phone Daniela BROWN, Casey Jiménez Primary Care Physician Encounter [facility] Date(s): 05/08/21 - 06/07/21 [facility] Adult [address] [place] [address]- Allergies, Adverse Reactions, Alerts Substance Reaction Severity [...] en Parent Or Guardian Refuses 1Result Comment: [facility]# [address] [id number] 2Result Comment: Pt tolerated well. [facility] #[id number] 3Location History: [facility] 4Result Comment: [05/06/2017] [facility]:[id number] Medications aspirin 81 mg oral delayed release tablet 81 mg, 1, tablet, By Mouth, Daily, # 90 tablet, Refills 1, Tot. Refills 1, Maintenance, 01/09/21 14:52:00 EDT, Route to Pharmacy Electronically, [facility] #[id number], Partial fill upon patientrequest if the prescription is for a schedule II op... Start Date: 01/09/21 Status: Ordered atorvastatin 80 mg oral tablet 1 tablet = 80 mg, By Mouth, Daily at bedtime, # 90 tablet, 3 Refills, Maintenance, 02/12/21 10:54:00 EDT, Tablet, [facility] #73221, 167.64, cm, 01/13/21 9:46:00 EDT, Height, 63.64, kg, 10/30/20 11:22:00 EDT, Dry Weight Start Date: 02/12/21 Stop Date: 02/07/22 Status: Ordered clopidogrel 75 mg oral tablet 75 mg, 1, tablet, By Mouth, Daily, # 30 tablet, Refills 11, Tot. Refills 11, Maintenance, 12/09/20 17:12:00 EDT, Route to Pharmacy Electronically, [facility] #10229, Partial fill upon patient request if the prescription is for a schedule II... Start Date: 12/09/20 Status: Ordered EpiPen 2-Sameer 0.3 mg injectable kit = 0.3 mg, Intramuscular, Once, Must go to hospital if used, # 1 each, 1 Refills, Soft Stop, 01/09/21 14:45:00 EDT, [facility] #46636, 167.64, cm, 01/09/21 14:27:00 EDT, Height, 63.64, [...] 01/13/21 9:59:00 EDT, Route to Pharmacy Electronically, [facility] #45576, Partial fill upon patient request if the prescription is for a schedule II opi... Start Date: 01/13/21 Status: Ordered multivitamin Multiple Vitamins oral tablet 1 tablet, By Mouth, Daily, # 90 tablet, 1 Refills, Maintenance, 01/09/21 14:44:00 EDT, Tablet, [facility] #48439, 1 tablet By Mouth Daily, 167.64, cm, 01/09/21 14:27:00 EDT, Height, 63.64, kg, 10/30/20 11:22:00 EDT, Dry Weight Start Date: 01/09/21 Status: Ordered Nutritional Supplements See Instructions, # 90 each, Refills 11, Tot. Refills 11, Maintenance, High Protein Ensure Use TID DX Pancreatitis, Weight Loss ICD 10 K85.90 R63.4 3 [place] 3 Vanilla Height 5'6 Weight 130lbs, 12/20/20 7:33:00 EDT, Supply Start Date: 12/20/20 Status: Ordered omeprazole 40 mg oral enteric coated capsule 1 capsule = 40 mg, By Mouth, Daily, # 30 capsule, 2 Refills, Maintenance, 01/14/21 14:05:00 EDT, ECCapsule, [facility] #05770, 167.64, cm, 01/13/21 9:46:00 EDT, Height, 63.64, kg, 10/30/2110:22:00 EDT, Dry Weight Start Date: 01/14/21 Stop Date: 04/14/21 Status: Ordered PEG-3350 with Electrolytes (Eqv-GoLYTELY) oral powder for reconstitution See Instructions, 1 glass every 15-30 minutes until finished, # 4,000 mL, 0 Refills, Maintenance, 08/26/20 16:28:00 EDT, [facility] #79559, Partial fill upon patient request if the prescription is for a schedule II opioid drug., 1 glass ever... Start Date: 08/26/20 Status: Ordered ProAir HFA 90 mcg/inh inhalation aerosol with adapter 2, puffs, Inhalation, Every 6 hours, PRN, # 8.5 Gm, Refills 5, Tot. Refills 5, Maintenance, 07/04/20 8:18:00 EST, Aerosol, Route to Pharmacy Electronically, [id number], [facility] #63243, 168, cm, 06/14/20 10:38:00... Start Date: 07/04/20 [...] capsule, Refills 1, Route to Pharmacy Electronically, [facility] #21264, 167.64, cm, 03/20/21 8:49:00 EDT, Height, 63.64, [...] FOR SLEEP, # 90 tablet, 1 Refills, [facility] #35123, 167.64, cm, 03/20/21 8:49:00 EDT, Height, 63.64, [...] 2019. 2Repeat EGD in 07/2020 for surveillance 62166; repeat 2019 4R shoulder 2018 5Dr. Jimbo (ENT surgeons) Social History Social History Type Response Smoking Status Current every day herve toney entered on: 12/17/15 Sex
--- OUTSIDE RECORDS SUMMARY | 2022-12-14 11:00 | XMS_ITS | Continuity of Care Document ---
Author Name Unknown Organization [facility] ter Address [address] [place] [address]- Care Team Providers Care Kosher Butcher Name Role Phone Daniela BROWN, Casey Jiménez Primary Care Physician [phone] Encounter [facility] Date(s): 08/07/19 - 08/07/[address] [address] Discharge Disposition: A-D/C Home Attending Physician: Zev Marquis MD Admitting Physician: Zev Marquis MD Referring Physician: Zev Marquis MD Allergies, Adverse Reactions, Alerts Substance Reaction [...] Pt tolerated well. [facility] #[id number] 2Location History: [facility] 3Result Comment: [05/06/2017] [facility]:8780-7264-13 Medications albuterol 0.083% inhalation solution 3 mL [...] capsule, 3 Refills, Maintenance, 08/07/19 11:39:00 EDT, [facility] #58625, 1 capsule By Mouth 3 times a [...] 05/04/19 14:51:08 EST, Route to Pharmacy Electronically, [id number], [facility] #[id number], 168, cm, 05/02/19 8:32:30... Start Date: 05/04/19 Stop Date: 09/01/19 Status: Ordered lisinopril 10 mg oral tablet See Instructions, TAKE 1 TABLET BY MOUTH EVERY DAY, # 30 tablet, Refills 2, Tot. Refills 2, Soft Stop, 05/22/19 16:32:00 EST, Instructions Replace Required Details, Route to Pharmacy Electronically, [facility] #09787, 168, cm, 05/19/19 8:56:... Start Date: 05/22/19 [...] 16:26:00 EST, Aerosol, Route to Pharmacy Electronically, [id number], [facility]49639, 168, cm, 07/24/19 9:01:00... Start Date: 07/24/19 Status: Ordered tamsulosin 0.4 mg oral capsule 0.4 mg, 1, capsule, By Mouth, Daily, Refills 0, Maintenance, 07/25/19 10:23:00 EST Start Date: 07/25/19 Status: Ordered traZODone 150 mg oral tablet 1 tablet, By Mouth, Daily at bedtime, PRN NEEDED FOR SLEEP, # 30 tablet, 5 Refills, Maintenance,06/27/19 16:32:00 EST, [facility] #51217, 168, cm, 05/19/19 8:56:00 EST, Height, 57.4, [...] 2018. 2Repeat EGD in 07/2020 for surveillance 89126; repeat 2019 4R shoulder 2017 5DrShabnam Choi (ENT surgeons) Vital Signs Most recent to oldest [Reference Range]: 1 2 3 Height 168 cm (08/07/19 9:46 AM) Oxygen Saturation [94-100 %] 96 % (08/07/19 11:21 AM) 96 % (08/07/19 11:13 AM) 100 % (08/07/19 9:46 AM) Pulse Rate [55-90 bpm] 51 bpm *L* (08/07/19 9:46 AM) Blood Pressure [90-138/55-84 mm Hg] 109/74mm Hg (08/07/19 11:21 AM) 108/62mm Hg (08/07/19 11:13 AM) 107/65mm Hg (08/07/19 9:46 AM) Respiratory Rate [16-30 br/min] 18 br/min (08/07/19 11:21 AM) 18 br/min (08/07/19 11:13 AM) 18 br/min (08/07/19 9:46 AM) Temperature [96.8-100.4 DegF] 98.4 DegF (08/07/19 9:46 AM) Mode of Delivery (Oxygen) Room air (08/07/19 11:21 AM) Room air (08/07/19 11:13 AM) Room air (08/07/19 9:46 AM) Blood pressure sites Arm, left (08/07/19 11:21 AM) Arm, left (08/07/19 9:46 AM) Temperature Route Temporal (08/07/19 9:46 AM) Dry Weight 63.5 kg (08/07/19 9:46 AM) Dry Weight Obtained Via Patient/family s tated (08/07/19 9:46 AM) Social History Social History Type Response Smoking Status Current every day herve toney entered on: 12/17/15 Sex
--- OUTSIDE RECORDS SUMMARY | 2022-12-14 11:00 | XMS_ITS | Continuity of Care Document ---
Author Name Unknown Organization [facility] Address [address] [place] [address]- Care Team Providers Care Finisher Hot Strip Name Role Phone Daniela BROWN, Casey Jiménez Primary Care Physician [place] [facility] [place]s): 07/25/19 - 08/01/19 [facility] [address] [place] [address]- [facility] Attending Physician: Chava Bauer MD Admitting Physician: Chava Bauer MD Referring Physician: Josey OSORIO, Tyra Willis [...] Guardian Refuses 1Result Comment: Pt tolerated well. [facility] #[id number] 2Location History: [facility] 3Result Comment: [05/06/2017] [facility]:[id number] Medications albuterol 0.083% inhalation solution 3 mL [...] 05/04/19 14:51:08 EST, Route to Pharmacy Electronically, [id number], [facility] #15942, 168, cm, 05/02/19 8:32:30... Start Date: 05/04/19 Stop Date: 09/01/19 Status: Ordered lisinopril 10 mg oral tablet See Instructions, TAKE 1 TABLET BY MOUTH EVERY DAY, # 30 tablet, Refills 2, Tot. Refills 2, Soft Stop, 05/22/19 16:32:00 EST, Instructions Replace Required Details, Route to Pharmacy Electronically, [facility] #32779, 168, cm, 05/19/19 8:56:... Start Date: 05/22/19 [...] 16:26:00 EST, Aerosol, Route to Pharmacy Electronically, [id number], [facility] #77354, 168, cm, 07/24/19 9:01:00... Start Date: 07/24/19 Status: Ordered tamsulosin 0.4 mg oral capsule 0.4 mg, 1, capsule, By Mouth, Daily, Refills 0, Maintenance, 07/25/19 10:23:00 EST Start Date: 07/25/19 Status: Ordered traZODone 150 mg oral tablet 1 tablet, By Mouth, Daily at bedtime, PRN NEEDED FOR SLEEP, # 30 tablet, 5 Refills, Maintenance,06/27/19 16:32:00 EST, [facility] #06412, 168, cm, 05/19/19 8:56:00 EST, Height, 57.4, [...] 2019. 2Repeat EGD in 07/2020 for surveillance 34318; repeat 2019 4R shoulder [address] 5Dr. Jimbo (ENT surgeons) Vital Signs Most recent to oldest [Reference Range]: 1 Height 168 cm (07/25/19 10:15 AM) Weight 63.96 kg (07/25/19 10:15 AM) Pulse Rate [55-90 bpm] 68 bpm (07/25/19 10:15 AM) Body Mass Index [18.5-24.99] 22.66 (07/25/19 10:15 AM) Blood Pressure [90-138/55-84 mm Hg] 132/ 60mm Hg (07/25/19 10:15 AM) Blood pressure sites Arm, left (07/25/19 10:15 AM) Weight Obtained Via Patient/family state d (07/25/19 10:15 AM) Social History Social History Type Response Smoking Status Current every day herve toney entered on: 12/17/15 Sex
--- OUTSIDE RECORDS SUMMARY | 2022-12-14 11:00 | XMS_ITS | Continuity of Care Document ---
Author Name Unknown Organization [facility] kiel Address [address] [place] [address] [address] [place] [address]- Care Team Providers Care Criminology Teacher Name Role Phone Casey Suarez MD Primary Care Physician Encounter [facility] Date(s): 10/22/22 - 10/29/22 [facility] [address] [place] [address]- Attending Physician: Barrett Larsen MD Referring Physician: Casey Suarez MD Allergies, [...] Refuses 1Result Comment: [facility]:[id number] 2Result Comment: [facility]# [id number] 3Result Comment: [facility]# [address] [id number] 4Result Comment: Pt tolerated well. [facility] #[id number] 5Location History: [facility] 6Result Comment: [05/06/2017] [facility]:8368-2757-52 Medications aspirin 81 mg oral delayed release tablet 1 tablet, By Mouth, Daily, # 90 tablet, 3 Refills, Maintenance, 06/09/22 10:43:00 EST, [facility] #[id number], 167.6, cm, 06/09/22 10:24:00 EST, Height, 63.6, kg, 09/22/21 9:54:00 EDT, Dry Weight Start Date: 06/09/22 Status: Ordered atorvastatin 80 mg oral tablet 1 tablet, By Mouth, Daily at bedtime, # 90 tablet, 0 Refills, Maintenance, 09/02/22 8:23:00 EDT, [facility] #[id number], 167.6, cm, 06/16/22 7:22:00 EST, Height, 63.6, kg, 09/22/21 9:54:00 EDT, Dry Weight Start Date: 09/02/22 Status: Ordered EpiPen 2-Sameer 0.3 mg injectable kit = 0.3 mg, Intramuscular, Once, Must go to hospital if used, # 1 each, 1 Refills, Soft Stop, 01/09/21 14:45:00 EDT, [facility] #[id number], 167.64, cm, 01/09/21 14:27:00 EDT, Height, 63.64, kg, 10/30/20 11:22:00 EDT, Dry Weight Start Date: 01/09/21 Status: Ordered gabapentin 300 mg oral capsule 2, capsule, By Mouth, 2 times a day, # 120 capsule, Refills 1, Maintenance, 09/09/22 15:15:00 EDT, Route to Pharmacy Electronically, [facility] #[id number], 167.6, cm, 06/16/22 7:22:00 EST, Height, 63.6, [...] tablet, 3 Refills, Maintenance, 06/09/22 10:44:00 EST, [facility] #[id number], 90, 1 tablet By Mouth Daily, 167.6, cm, 06/09/22 10:24:00 EST, Height, 63.6, kg, 09/22/21 9:54:00 EDT, Dry Weight Start Date: 06/09/22 Status: Ordered Nutritional Supplements See Instructions, # 90 each, Refills 11, Tot. Refills 11, Maintenance, High Protein Ensure Use TID DX Pancreatitis, Weight Loss ICD 10 K85.90 R63.4 3 [place] 3 Vanilla Height 5'6 Weight 130lbs, 12/20/20 7:33:00 EDT, Supply Start Date: 12/20/20 Status: Ordered omeprazole 40 mg oral enteric coated capsule 1 capsule, By Mouth, Daily, # 30 capsule, 2 Refills, Maintenance, 09/01/22 10:42:00 EDT, [facility] #[id number], 167.6, cm, 06/16/22 7:22:00 EST, Height, 63.6, kg, 09/22/21 9:54:00 EDT, Dry Weight Start Date: 09/01/22 Status: Ordered PEG-3350 with Electrolytes (Eqv-GoLYTELY) oral powder for reconstitution See Instructions, 1 glass every 15-30 minutes until finished, # 4,000 mL, 0 Refills, Maintenance, 08/26/20 16:28:00 EDT, [facility] #[id number], Partial fill upon patient request if the prescription is for a schedule II opioid drug., 1 glass ever... Start Date: 08/26/20 Status: Ordered ProAir HFA 90 mcg/inh inhalation aerosol with adapter 2, puffs, Inhalation, Every 6 hours, PRN, # 8.5 Gm, Refills 5, Tot. Refills 5, Maintenance, 07/04/20 8:18:00 EST, Aerosol, Route to Pharmacy Electronically, [id number], [facility] #[id number], 168, cm, 06/14/20 10:38:00... Start Date: 07/04/20 [...] 10/15/22 9:26:00 EDT, Route to Pharmacy Electronically, [facility] #[id number], 167.6, cm, 10/15/22 9:15:00 EDT, Height, 63.6, [...] 90 tablet, 1 Refills, Maintenance,09/02/22 10:55:00 EDT, [facility] #[id number], 167.6, cm, 06/16/22 7:22:00 EST, Height, 63.6, [...] 2019. 2Repeat EGD in 07/2020 for surveillance 57786; repeat 2019 4R shoulder 2018 5Dr. Jimbo (ENT surgeons) Vital Signs Most recent to oldest [Reference Range]: 1 Height 167.6 cm (10/22/22 8:47 AM) Weight 63 kg (10/22/22 8:47 AM) Body Mass Index [18.5-24.99 kg/m2] 22.43 kg/m2 (10/22/22 8:47 AM) Social History Social History Type Response Smoking Status 10 or more cigarette s (1/2 pack or more)/day in last 30 days entered on: 03/13/22 Sex Patient Care team information Care Team Personnel Name: April Landrum RN Position: [facility] RN Member Role: Primary Care Nurse Name: Talib Jensen RN Position: [facility] RN Member Role: Primary Care Nurse Name: Casey Suarez MD Position: [facility] Physician - Primary Care Member Role: PCP Address: Address: [address] [place] [id number] Name: Betty Rodriguez RN Position: [facility] RN Member Role: Primary Care Nurse Name: Damon Elaine RN Position: [facility] SN RN Member Role: Primary Care Nurse Name: Neelima Manrique RN Position: [facility] RN Member Role: Primary Care Nurse Name: Maddison Lindquist RN Position: [facility] SN RN Member Role: Primary Care Nurse Name: Mahesh Castillo RN Position: [facility] RN Member Role: Primary Care Nurse Name: Desiree Caballero RN Position: [facility] Laborer Cutting Tool Member Role: Primary Care Nurse Name: Melvina Palacios RN Position: [facility] RN Member Role: Primary Care Nurse Name: Diandra Méndez RN Position: [facility] RN Member Role: Primary Care Nurse Care Team Related Persons Name: LAYLA NARAYANAN Address: [address] [address]
--- OUTSIDE RECORDS SUMMARY | 2022-12-14 11:00 | XMS_ITS | Continuity of Care Document ---
Author Name Unknown Organization [facility] kiel Address [address] [place] [address]- Care Team Providers Care Supervisor Blueprinting And Photocopy Name Role Phone Casey Suarez MD Primary Care Physician Encounter [facility] Date(s): 10/17/20 - 11/16/20 [facility] [address] [place] [id number]- Allergies, Adverse Reactions, Alerts Substance Reaction Severity [...] Refuses 1Result Comment: Pt tolerated well. [facility] #86712-692-07 2Location History: [place] 3Result Comment: [05/06/2017] [facility]:7623-7054-44 Medications amiodarone 200 mg oral tablet 200 mg, 1, tablet, By Mouth, 2 times a day, # 60 tablet, Refills 0, Tot. Refills 0, Maintenance, 11/13/20 9:34:00 EDT, Route to Pharmacy Electronically, [facility], Partial fill upon patient request if the prescription is for a schedule... Start Date: 11/13/20 Status: Ordered aspirin 81 mg oral delayed release tablet 81 mg, By Mouth, Daily, # 30 tablet, Refills 0, Tot. Refills 0, Maintenance, 11/13/20 9:32:00 EDT, Route to Pharmacy Electronically, [facility], Partial fill upon patient request if theprescription is for a schedule II opioid drug., 167... Start Date: 11/13/20 Stop Date: 12/13/20 Status: Ordered atorvastatin 80 mg oral tablet 1 tablet = 80 mg, By Mouth, Daily at bedtime, # 30 tablet, 0 Refills, Maintenance, 11/13/20 9:34:00EDT, Tablet, [facility], Partial fill upon patient request if the prescription is fora schedule II opioid drug., 167.64, cm, 11/13/20 6:... Start Date: 11/13/20 Status: Ordered clopidogrel 75 mg oral tablet 75 mg, 1, tablet, By Mouth, Daily, # 30 tablet, Refills 0, Tot. Refills 0, Maintenance, 11/13/20 9:34:00 EDT, Route to Pharmacy Electronically, [facility], Partial fill upon patient request if the prescription is for a schedule II opioid... Start Date: 11/13/20 Status: Ordered docusate sodium 100 mg oral tablet = 100 mg, By Mouth, 2 times a day, # 6 tablet, 0 Refills, Maintenance, 11/13/20 9:34:00 EDT, Tablet, [facility], Partial fill upon patient request [...] 11/13/20 9:32:00 EDT, Route to Pharmacy Electronically, [facility], Partial fill upon patient request, 167.64, cm, 11/13/20 6:08:00 EDT, H... Start Date: 11/13/20 Stop Date: 06/11/21 Status: Ordered metoprolol 50 mg oral tablet 50 mg, 1, tablet, By Mouth, 2 times a day, # 60 tablet, Refills 0, Tot. Refills 0, Maintenance, 11/13/20 9:33:00 EDT, Route to Pharmacy Electronically, [facility], Partial fill upon patient request if the prescription is for a schedule I... Start Date: 11/13/20 Stop Date: 12/13/20 Status: Ordered multivitamin Multiple Vitamins oral tablet 1 tablet, By Mouth, Daily, # 30 tablet, 5 Refills, Maintenance, 04/22/20 13:08:00 EST, Tablet, [facility] #[id number], 1 tablet By Mouth Daily,x30 days, 168, cm, 04/22/20 12:49:00 EST, Height, 63.5, kg, 08/07/19 9:46:00 EDT, Dry Weight Start Date: 04/22/20 Stop Date: 10/19/20 Status: Ordered Nicoderm C-Q Clear 14 mg/24 hr transdermal film, extended release 1 patch, Topically, Daily, for 14 days, # 14 patch, 0 Refills, Acute 11/27/20 9:35:00 EDT, :35:00 EDT, Patch, [facility], Partial fill upon patient request if the prescriptionis for a schedule II opioid drug., 167.64, cm, 10/29... Start Date: 11/13/20 Stop Date: 11/27/20 Status: Ordered omeprazole 40 mg oral enteric coated capsule 1 capsule = 40 mg, By Mouth, Daily, # 30 capsule, 10 Refills, Maintenance, 04/22/20 13:08:00 EST, EC Capsule, [facility] #[id number], 168, cm, 04/22/20 12:49:00 EST, Height, 63.5, kg, 08/07/19 9:46:00 EDT, Dry Weight Start Date: 04/22/20 Stop Date: 03/18/21 Status: Ordered PEG-3350 with Electrolytes (Eqv-GoLYTELY) oral powder for reconstitution See Instructions, 1 glass every 15-30 minutes until finished, # 4,000 mL, 0 Refills, Maintenance, 08/26/20 16:28:00 EDT, [facility] #[id number], Partial fill upon patient request if the prescription is for a schedule II opioid drug., 1 glass ever... Start Date: 08/26/20 Status: Ordered ProAir HFA 90 mcg/inh inhalation aerosol with adapter 2, puffs, Inhalation, Every 6 hours, PRN, # 8.5 Gm, Refills 5, Tot. Refills 5, Maintenance, 07/04/20 8:18:00 EST, Aerosol, Route to Pharmacy Electronically, [id number], [facility] #[id number], 168, cm, 06/14/20 10:38:00... Start Date: 07/04/20 Status: Ordered Senna 8.6 mg oral tablet 8.6 mg, 1, tablet, By Mouth, Daily, for 7 days, # 7 tablet, Refills 0, Tot. Refills 0, Acute, 11/20/20 9:36:00 EDT, 11/13/20 9:36:00 EDT, Route to Pharmacy Electronically, [facility] 3 Tablet, Partial fill upon patient request if the presc... Start Date: 11/13/20 Stop Date: 11/20/20 Status: Ordered tamsulosin 0.4 mg oral capsule 0.4 mg, 1, capsule, By Mouth, Daily, PER BELL HODGES, # 90 capsule, Refills 1, Tot. Refills 1, Maintenance, 10/16/20 8:15:00 EDT, Route to Pharmacy Electronically, [facility] #[id number], Partial fill upon patient request, 168, cm, 10/16/20... Start Date: 10/16/20 Status: Ordered traZODone 150 mg oral tablet 1 tablet, By Mouth, Daily at bedtime, PRN NEEDED FOR SLEEP, # 90 tablet, 1 Refills, Maintenance,10/16/20 8:15:00 EDT, [facility] #[id number], 168, cm, 10/16/20 7:49:00 EDT, Height, 60, kg, 10/16/20 7:49:00 EDT, Dry Weight Start Date: 10/16/20 Stop Date: 04/14/21 Status: Ordered Tylenol 325 mg oral tablet 975 mg, 3, tablet, By Mouth, 2 times a day, for 14 days, # 84 tablet, Refills 0, Tot. Refills 0, Acute 11/27/20 9:33:00 EDT, 11/13/20 9:33:00 EDT, Route to Pharmacy Electronically, [facility], Partial fill upon patient [...] 2018. 2Repeat EGD in 07/2020 for surveillance 87282; repeat 2019 4R shoulder 2018 5Dr. Jimbo (ENT surgeons) Social History Social History Type Response Smoking Status Current every day herve toney entered on: 12/17/15 Sex
--- OUTSIDE RECORDS SUMMARY | 2022-12-14 11:00 | XMS_ITS | Continuity of Care Document ---
Author Name Unknown Organization [facility] [place] [facility] Address [address] [place] [address]- Care Team Providers Care Balance Wheel Motion Inspector Name Role Phone Casey Suarez MD Primary Care Physician Encounter [facility] Date(s): 04/29/20 - 05/29/20 [facility] [address] [place] [address]- Allergies, Adverse Reactions, Alerts Substance Reaction Severity [...] Guardian Refuses 1Result Comment: Pt tolerated well. [facility] #[id number] 2Location History: [place] 3Result Comment: [05/06/2017] [facility]:6038-9160-50 Medications albuterol 0.083% inhalation solution 3 mL = 2.5 mg, Inhalation, Every 6 hours, # 120 each, 2 Refills, Maintenance, 04/30/20 11:23:00 EST, Solution, [facility] #[id number], 168, cm, 04/30/20 11:04:00 EST, Height, 63.5, [...] Refills, Soft Stop, 05/03/20 16:00:00 EST, Tablet, [facility] #[id number], Partial fill upon patient request if the prescription is for a schedule IIopioid drug., 168, cm, 04/30/20 11:04:00 EST, Heigh... Start Date: 05/03/20 Status: Ordered Creon 36,000 units oral delayed release capsule 1 capsule, By Mouth, 3 times a day, with each meal, # 90 capsule, 3 Refills, Maintenance, 08/07/19 11:39:00 EDT, [facility] #54611, 1 capsule By Mouth 3 times a day,Instr:with each meal, 168, cm, 08/07/19 9:46:00 EDT, Height, 63.5, kg, 08/06... Start Date: 08/07/19 Status: Ordered Crestor 40 mg oral tablet 1 tablet = 40 mg, By Mouth, Daily, # 90 tablet, 3 Refills, Maintenance, 04/22/20 13:08:00 EST, Tablet, [facility] #44209, 168, cm, 04/22/20 12:49:00 EST, Height, 63.5, [...] 04/22/20 13:38:00 EST, Route to Pharmacy Electronically, [facility] #[id number], Partial fill upon patient request, 168, cm, [...] 5 Refills, Maintenance, 04/22/20 13:08:00 EST, Tablet, [facility] #93008, 1 tablet By Mouth Daily,x30 days, 168, cm, 04/22/20 12:49:00 EST, Height, 63.5, kg, 08/07/19 9:46:00 EDT, Dry Weight Start Date: 04/22/20 Stop Date: 10/19/20 Status: Ordered omeprazole 40 mg oral enteric coated capsule 1 capsule = 40 mg, By Mouth, Daily, # 30 capsule, 10 Refills, Maintenance, 04/22/20 13:08:00 EST, EC Capsule, [facility] #[id number], 168, cm, 04/22/20 12:49:00 EST, Height, 63.5, [...] tablet, 0 Refills, Maintenance, 05/03/20 16:00:00 EST, [facility] #79442, Partial fill upon patient request if the prescription is for a schedule II opioid... Start Date: 05/03/20 Status: Ordered ProAir HFA 90 mcg/inh inhalation aerosol with adapter 2, puffs, Inhalation, Every 6 hours, PRN, # 8.5 Gm, Refills 2, Tot. Refills 2, Maintenance, 04/22/20 13:08:00 EST, Aerosol, Route to Pharmacy Electronically, [id number], [facility] #[id number], 168, cm, 04/22/20 12:49:00... Start Date: 04/22/20 Status: Ordered tamsulosin 0.4 mg oral capsule 0.4 mg, 1, capsule, By Mouth, Daily, PER BELL HODGES, # 90 capsule, Refills 1, Tot. Refills 1, Maintenance, 04/29/20 16:06:00 EST, Route to Pharmacy Electronically, [facility] #[id number],Partial fill upon patient request, 168, cm, ... Start Date: 04/29/20 Status: Ordered tiZANidine 4 mg oral capsule 2 capsule = 8 mg, By Mouth, 3 times a day, 0 Refills, Maintenance, 10/13/19 10:32:00 EDT Start Date: 10/13/19 Status: Ordered traZODone 150 mg oral tablet 1 tablet, By Mouth, Daily at bedtime, PRN NEEDED FOR SLEEP, # 30 tablet, 5 Refills, Maintenance,04/22/20 13:08:00 EST, [facility]54395, 168, cm, 04/22/20 12:49:00 EST, Height, 63.5, [...] 2018. 2Repeat EGD in 07/2020 for surveillance 66208; repeat 2019 4R shoulder 2017 5Dr. Jimbo (ENT surgeons) Social History Social History Type Response Smoking Status Current every day herve toney entered on: 12/17/15 Sex
--- OUTSIDE RECORDS SUMMARY | 2022-12-14 11:00 | XMS_ITS | Continuity of Care Document ---
Author Name Unknown Organization [facility] Address [address] [place] [id number]- Care Team Providers Care Pastor Name Role Phone Casey Suarez MD Primary Care Physician Encounter [facility] [place] Date(s): 08/17/20 - 08/17/[address] [address]- Encounter Diagnosis Chest pain(Final) - 08/17/20 Discharge Disposition: A-D/C Home Attending Physician: Joyce Connolly DO Admitting Physician: Joyce Connolly DO Referring Physician: Not on Staff, Referring MD Allergies, Adverse Reactions, Alerts Substance Reaction [...] Guardian Refuses 1Result Comment: Pt tolerated well. [facility] #[id number] 2Location History: [facility] 3Result Comment: [05/06/2017] [facility]:7490-2541-48 Medications albuterol 0.083% inhalation solution 3 mL = 2.5 mg, Inhalation, Every 6 hours, # 120 each, 2 Refills, Maintenance, 04/30/20 11:23:00 EST, Solution, [facility] #[id number], 168, cm, 04/30/20 11:04:00 EST, Height, 63.5, kg, 08/07/19 9:46:00 EDT, Dry Weight Start Date: 04/30/20 Status: Ordered Creon 36,000 units oral delayed release capsule 1 capsule, By Mouth, 3 times a day, with each meal, # 90 capsule, 3 Refills, Maintenance, 08/07/19 11:39:00 EDT, [facility] #90057, 1 capsule By Mouth 3 times a day,Instr:with each meal, 168, cm, 08/07/19 9:46:00 EDT, Height, 63.5, kg, 08/06... Start Date: 08/07/19 Status: Ordered ENSURE/VANILLA ENSURE/VANILLA, See Instructions, # 6 pack/packet, Refills 11, Tot. Refills 11, Maintenance, [employer]ureMax Protein Formula TID DX Pancreatitis Weight Loss 3 Moody 1 Vanilla, 06/25/20 9:20:00 EST, Compound Start [...] 04/22/20 13:38:00 EST, Route to Pharmacy Electronically, [facility] #[id number], Partial fill upon patient request, 168, cm, [...] 5 Refills, Maintenance, 04/22/20 13:08:00 EST, Tablet, [facility] #[id number], 1 tablet By Mouth Daily,x30 days, 168, cm, 04/22/20 12:49:00 EST, Height, 63.5, kg, 08/07/19 9:46:00 EDT, Dry Weight Start Date: 04/22/20 Stop Date: 10/19/20 Status: Ordered Nutritional Supplements See Instructions, # 6 each, Refills 11, Tot. Refills 11, Maintenance, Max Protein Ensure 3 Moody 3 Vanilla use TID DX Pancreatitis Weight loss ICD 10 K85.9 R63.4 Weight: 137LBS Height: 5'6, 07/30/20 14:51:00 EST, Supply, 168, cm, 06/14... Start Date: 07/30/20 Status: Ordered omeprazole 40 mg oral enteric coated capsule 1 capsule = 40 mg, By Mouth, Daily, # 30 capsule, 10 Refills, Maintenance, 04/22/20 13:08:00 EST, EC Capsule, [facility] #[id number], 168, cm, 04/22/20 12:49:00 EST, Height, 63.5, [...] 8:18:00 EST, Aerosol, Route to Pharmacy Electronically, [id number], [facility] #[id number], 168, cm, 06/14/20 10:38:00... Start Date: 07/04/20 Status: Ordered tamsulosin 0.4 mg oral capsule 0.4 mg, 1, capsule, By Mouth, Daily, PER BELL HODGES, # 90 capsule, Refills 1, Tot. Refills 1, Maintenance, 04/29/20 16:06:00 EST, Route to Pharmacy Electronically, [facility] #[id number],Partial fill upon patient request, 168, cm, ... Start Date: 04/29/20 Status: Ordered tiZANidine 4 mg oral capsule 2 capsule = 8 mg, By Mouth, 3 times a day, 0 Refills, Maintenance, 10/13/19 10:32:00 EDT Start Date: 10/13/19 Status: Ordered traZODone 150 mg oral tablet 1 tablet, By Mouth, Daily at bedtime, PRN NEEDED FOR SLEEP, # 30 tablet, 5 Refills, Maintenance,04/22/20 13:08:00 EST, [facility] #[id number], 168, cm, 04/22/20 12:49:00 EST, Height, 63.5, [...] 2019. 2Repeat EGD in 07/2020 for surveillance 25542; repeat 2019 4R shoulder 2017 5Dr. Jimbo (ENT surgeons) Results Radiology Reports * Exam Date Time Procedure Performing Provider Status 08/17/20 7:07 PM Chest 2 Views Frontal and Lat Eoly Zelaya; Auth (Verified) Notes: (Chest 2 Views Frontal and Lat) Reason For Exam: Chest Pain;Other: RESULT: Chest 2 Views Frontal and Lat Chest 2 Views Frontal and Lat Hx of Present Illness: I think I had a heart attack this morning reports sudden onset of severe head pressure, dizziness, lightheaded, in a fog . diffuse upper chest pain and R arm pain like a pressure. states symptoms resolved while actively working today. now feels...; Reason: Other:; Chest Pain; Clinical Question(s): Other: COMPARISON: X-ray 12/10/2017 FINDINGS: LINES AND TUBES: None. LUNGS AND PLEURA: Clear lungs. Normal pulmonary vascularity. No pleural effusion. No pneumothorax. HEART, MEDIASTINUM AND MANDA: Heart is normal in size. Normal upper mediastinal and hilar contour. BONES AND SOFT TISSUES: No acute abnormality. IMPRESSION: No acute abnormality. WSN: [id number] Ordering Physician: Gary Cash Dictated By: Damon Yates MD Dictated Date/Time: 08/17/20 7:19 pm Reviewed By: Damon Yates MD Signed By: Damon Yates MD Signed Date/Time: 08/17/20 7:19 pm Transcribed By: CLAU Transcribed Date/Time: 08/17/20 7:19 pm Vital Signs Most recent to oldest [Reference Range]: 1 2 3 Oxygen Saturation [94-100 %] 97 % (08/17/20 7:27 PM) 100 % (08/17/20 5:20 PM) 100 % (08/17/20 5:13 PM) Pulse Rate [55-90 bpm] 51 bpm *L* (08/17/20 7:27 PM) 66 bpm (08/17/20 5:20 PM) 77 bpm (08/17/20 5:13 PM) Blood Pressure [90-138/55-84 mm Hg] 126/54mm Hg (08/17/20 7:27 PM) 129/55mm Hg (08/17/20 5:20 PM) Respiratory Rate [16-30 br/min] 18 br/min (08/17/20:27 PM) 20 br/min (3/20/21 5:20 PM) Temperature [96.8-100.4 DegF] 97.8 DegF (08/17/20 7:27 PM) 97.8 DegF (08/17/20 5:20 PM) Mode of Delivery (Oxygen) Room air (08/17/20 7:27 PM) Room air (08/17/20 5:20 PM) Room air (08/17/20 5:13 PM) Blood pressure sites Arm, left (08/17/20 7:27 PM) Arm, left (08/17/20 5:20 PM) Temperature Route Oral (08/17/20 7:27 PM) Oral (08/17/20 5:20 PM) Social History Social History Type Response Smoking Status Current every day herve toney entered on: 12/17/15 Sex
--- OUTSIDE RECORDS SUMMARY | 2022-12-14 11:00 | XMS_ITS | Continuity of Care Document ---
Author Name Unknown Organization [facility] [place] Address [address] [place] [address]- Care Team Providers Care Barkeep Name Role Phone Casey Suarez MD Primary Care Physician Encounter [facility] Date(s): 06/09/22 - 06/16/22 [facility] Adult [address] [place] [address]- Encounter Diagnosis Chronic obstructive pulmonary disease (COPD)(Discharge Diagnosis) - 06/09/22 Depression, major, recurrent, in remission(Discharge Diagnosis) - 06/09/22 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(Discharge Diagnosis) - 06/09/22 Attending Physician: Casey Suarez MD Allergies, Adverse [...] en Parent Or Guardian Refuses 1Result Comment: [facility]# [id number] 2Result Comment: [facility]# [address] 53640-985-01 3Result Comment: Pt tolerated well. [facility] #[id number] 4Location History: [facility] 5Result Comment: [05/06/2017] [facility]:5221-2977-47 Medications aspirin 81 mg oral delayed release tablet 1 tablet, By Mouth, Daily, # 90 tablet, 3 Refills, Maintenance, 06/09/22 10:43:00 EST, [facility] #[id number], 167.6, cm, 06/09/22 10:24:00 EST, Height, 63.6, kg, 09/22/21 9:54:00 EDT, Dry Weight Start Date: 06/09/22 Status: Ordered atorvastatin 80 mg oral tablet 1 tablet, By Mouth, Daily at bedtime, # 90 tablet, 1 Refills, Maintenance, 03/06/22 12:15:00 EDT, [facility] #[id number], 167.6, cm, 01/08/22 8:27:00 EDT, Height, 63.6, kg, 09/22/21 9:54:00 EDT,Dry Weight Start Date: 03/06/22 Status: Ordered EpiPen 2-Sameer 0.3 mg injectable kit = 0.3 mg, Intramuscular, Once, Must go to hospital if used, # 1 each, 1 Refills, Soft Stop, 01/09/21 14:45:00 EDT, [facility] #[id number], 167.64, cm, 01/09/21 14:27:00 EDT, Height, 63.64, kg, 10/30/20 11:22:00 EDT, Dry Weight Start Date: 01/09/21 Status: Ordered gabapentin 300 mg oral capsule 2, capsule, By Mouth, 2 times a day, # 120 capsule, Refills 1, Maintenance, 04/29/22 15:21:00 EST, Route to Pharmacy Electronically, [facility] #[id number], 167.6, cm, 03/19/22 9:24:00 EDT, Height, 63.6, [...] tablet, 3 Refills, Maintenance, 06/09/22 10:44:00 EST, [facility] #53239, 90, 1 tablet By Mouth Daily, 167.6, cm, 06/09/22 10:24:00 EST, Height, 63.6, kg, 09/22/21 9:54:00 EDT, Dry Weight Start Date: 06/09/22 Status: Ordered Nutritional Supplements See Instructions, # 90 each, Refills 11, Tot. Refills 11, Maintenance, High Protein Ensure Use TID DX Pancreatitis, Weight Loss ICD 10 K85.90 R63.4 3 [place] 3 Vanilla Height 5'6 Weight 130lbs, 12/20/20 7:33:00 EDT, Supply Start Date: 12/20/20 Status: Ordered omeprazole 40 mg oral enteric coated capsule 1 capsule, By Mouth, Daily, # 30 capsule, 2 Refills, Maintenance, 05/29/22 17:58:00 EST, [facility] #38443, 167.6, cm, 03/19/22 9:24:00 EDT, Height, 63.6, kg, 09/22/21 9:54:00 EDT, Dry Weight Start Date: 05/29/22 Status: Ordered PEG-3350 with Electrolytes (Eqv-GoLYTELY) oral powder for reconstitution See Instructions, 1 glass every 15-30 minutes until finished, # 4,000 mL, 0 Refills, Maintenance, 08/26/20 16:28:00 EDT, [facility] #[id number], Partial fill upon patient request if the prescription is for a schedule II opioid drug., 1 glass ever... Start Date: 08/26/20 Status: Ordered ProAir HFA 90 mcg/inh inhalation aerosol with adapter 2, puffs, Inhalation, Every 6 hours, PRN, # 8.5 Gm, Refills 5, Tot. Refills 5, Maintenance, 07/04/20 8:18:00 EST, Aerosol, Route to Pharmacy Electronically, [id number], [facility] #[id number], 168, cm, 06/14/20 10:38:00... Start Date: 07/04/20 [...] 04/07/22 13:27:00 EST, Route to Pharmacy Electronically, [facility] #[id number], 167.6, cm, 03/19/22 9:24:00 EDT, Height, 63.6,kg, [...] 90 tablet, 0 Refills, Maintenance,04/07/22 15:37:00 EST, [facility] #[id number], 167.6, cm, 03/19/22 9:24:00 EDT, Height, 63.6, [...] 2019. 2Repeat EGD in 07/2020 for surveillance 89433; repeat 2019 4R shoulder 2018 5Dr. Jimbo (ENT surgeons) Diagnosis Diagnosis Type Effective Dates Health Status Clinical Service Informant Chronic obstructive pulmonary disease (COPD) Discharge Diagnosis 06/09/22 Depression, major, recurrent, in remission Discharge Diagnosis 06/09/22 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 Discharge Diagnosis 06/09/22 Vital Signs Most recent to oldest [Reference Range]: 1 Height 167.6 cm (06/09/22 10:24 AM) Weight 61.3 kg (06/09/22 10:24 AM) Oxygen Saturation [94-100 %] 96 % (06/09/22 10:24 AM) Pulse Rate [55-90 bpm] 69 bpm (06/09/22 10:24 AM) Body Mass Index [18.5-24.99 kg/m2] 21.82 kg/m2 (06/09/22 10:24 AM) Blood Pressure [90-138/55-84 mm Hg] 92/6 2mm Hg (06/09/22 10:24 AM) Mode of Delivery (Oxygen) Room air (06/09/22 10:24 AM) Blood pressure sites Arm, left (06/09/22 10:24 AM) Weight Obtained Via Standing scale (06/09/22 10:24 AM) Social History Social History Type Response Smoking Status 10 or more cigarette s (1/2 pack or more)/day in last 30 days entered on: 03/13/22 Sex Patient Care team information Care Team Personnel Name: April Landrum RN Position: [facility] RN Member Role: Primary Care Nurse Name: Talib Jensen RN Position: [facility] RN Member Role: Primary Care Nurse Name: Casey Suarez MD Position: [facility] Primary Care Physician Member Role: PCP Address: Address: [address] [place] [email or web address]] Name: Frida Urban RN Position: [facility] RN Member Role: Primary Care Nurse Name: Betty Rodriguez RN Position: [facility] RN Member Role: Primary Care Nurse Name: Damon Elaine RN Position: [facility] RN Member Role: Primary Care Nurse Name: Neelima Manrique RN Position: [facility] RN Member Role: Primary Care Nurse Name: Maddison Lindquist RN Position: [facility] SN RN Member Role: Primary Care Nurse Name: Mahesh Castillo RN Position: [facility] RN Member Role: Primary Care Nurse Name: Desiree Caballero RN Position: [facility] Cricket Coach Member Role: Primary Care Nurse Name: Melvina Palacios RN Position: [facility] RN Member Role: Primary Care Nurse Name: Diandra Méndez RN Position: [facility] RN Member Role: Primary Care Nurse Care Team Related Persons Name: LAYLA NARAYANAN Address: [address] [address]
--- OUTSIDE RECORDS SUMMARY | 2022-12-14 11:01 | XMS_ITS | Continuity of Care Document ---
Author Name Unknown Organization [facility] Address [address] [place] [address]- Care Team Providers Care Lock Assembler Name Role Phone Casey Suarez MD Primary Care Physician Encounter [facility] Date(s): 06/20/21 - 07/20/21 [facility] [address] [place] [address]- Attending Physician: Admtr, Mark8 Admitting Physician: Admtr, Ar8 Referring Physician: Admtr, [...] en Parent Or Guardian Refuses 1Result Comment: [facility]# [address] 55519-329-40 2Result Comment: Pt tolerated well. [facility] #06566-228-40 3Location History: [facility] 4Result Comment: [05/06/2017] [facility]:0294-9027-72 Medications aspirin 81 mg oral delayed release tablet 1 tablet, By Mouth, Daily, # 90 tablet, 0 Refills, [facility] #[id number], 167.64, cm, 04/21/21 13:13:00 EST, Height, 63.64, kg, 10/30/20 11:22:00 EDT, Dry Weight Start Date: 07/11/21 Status: Ordered atorvastatin 80 mg oral tablet 1 tablet = 80 mg, By Mouth, Daily at bedtime, # 90 tablet, 3 Refills, Maintenance, 02/12/21 10:54:00 EDT, Tablet, [facility] #[id number], 167.64, cm, 01/13/21 9:46:00 EDT, Height, 63.64, kg, 10/30/20 11:22:00 EDT, Dry Weight Start Date: 02/12/21 Stop Date: 02/07/22 Status: Ordered clopidogrel 75 mg oral tablet 75 mg, 1, tablet, By Mouth, Daily, # 30 tablet, Refills 11, Tot. Refills 11, Maintenance, 12/09/20 17:12:00 EDT, Route to Pharmacy Electronically, [facility] #[id number], Partial fill upon patient request if the prescription is for a schedule II... Start Date: 12/09/20 Status: Ordered EpiPen 2-Sameer 0.3 mg injectable kit = 0.3 mg, Intramuscular, Once, Must go to hospital if used, # 1 each, 1 Refills, Soft Stop, 01/09/21 14:45:00 EDT, [facility] #[id number], 167.64, cm, 01/09/21 14:27:00 EDT, Height, 63.64, [...] 01/13/21 9:59:00 EDT, Route to Pharmacy Electronically, [facility] #[id number], Partial fill upon patient request if the prescription is for a schedule II opi... Start Date: 01/13/21 Status: Ordered multivitamin Multiple Vitamins oral tablet 1 tablet, By Mouth, Daily, # 90 tablet, 1 Refills, [facility] #61214, 90, TAKE 1 TABLET BY MOUTH DAILY, 167.64, cm, 04/21/21 13:13:00 EST, Height, 63.64, kg, 10/30/20 11:22:00 EDT, Dry Weight Start Date: 07/10/21 Status: Ordered Nutritional Supplements See Instructions, # 90 each, Refills 11, Tot. Refills 11, Maintenance, High Protein Ensure Use TID DX Pancreatitis, Weight Loss ICD 10 K85.90 R63.4 3 [place] 3 Vanilla Height 5'6 Weight 130lbs, 12/20/20 7:33:00 EDT, Supply Start Date: 12/20/20 Status: Ordered omeprazole 40 mg oral enteric coated capsule 1 capsule = 40 mg, By Mouth, Daily, # 30 capsule, 2 Refills, Maintenance, 01/14/21 14:05:00 EDT, ECCapsule, [facility] #[id number], 167.64, cm, 01/13/21 9:46:00 EDT, Height, 63.64, kg, 10/30/2110:22:00 EDT, Dry Weight Start Date: 01/14/21 Stop Date: 04/14/21 Status: Ordered PEG-3350 with Electrolytes (Eqv-GoLYTELY) oral powder for reconstitution See Instructions, 1 glass every 15-30 minutes until finished, # 4,000 mL, 0 Refills, Maintenance, 08/26/20 16:28:00 EDT, [facility] #21265, Partial fill upon patient request if the prescription is for a schedule II opioid drug., 1 glass ever... Start Date: 08/26/20 Status: Ordered ProAir HFA 90 mcg/inh inhalation aerosol with adapter 2, puffs, Inhalation, Every 6 hours, PRN, # 8.5 Gm, Refills 5, Tot. Refills 5, Maintenance, 07/04/20 8:18:00 EST, Aerosol, Route to Pharmacy Electronically, [id number], [facility] #[id number], 168, cm, 06/14/20 10:38:00... Start Date: 07/04/20 [...] capsule, Refills 1, Route to Pharmacy Electronically, [facility] #[id number], 167.64, cm, 03/20/21 8:49:00 EDT, Height, 63.64, [...] FOR SLEEP, # 90 tablet, 1 Refills, [facility] #[id number], 167.64, cm, 03/20/21 8:49:00 EDT, Height, 63.64, [...] 2019. 2Repeat EGD in 07/2020 for surveillance 86037; repeat 2019 4R shoulder 2018 5DrShabnam Choi (ENT surgeons) Social History Social History Type Response Smoking Status Current every day herve toney entered on: 12/17/15 Sex
--- OUTSIDE RECORDS SUMMARY | 2022-12-14 11:01 | XMS_ITS | Continuity of Care Document ---
Author Name Unknown Organization [facility] [place] Address [address] [place] [address]- Care Team Providers Care Clock Assembler Name Role Phone Casey Suarez MD Primary Care Physician Encounter [facility] Date(s): 06/20/20 - 07/20/20 [facility] Adult [address] [place] [address]- Allergies, Adverse Reactions, Alerts Substance Reaction Severity [...] well. [facility] #[id number] 2Location History: [place] 3Result Comment: [05/06/2017] [facility]:7418-2674-20 Medications albuterol 0.083% inhalation solution 3 mL = 2.5 mg, Inhalation, Every 6 hours, # 120 each, 2 Refills, Maintenance, 04/30/20 11:23:00 EST, Solution, [facility] #[id number], 168, cm, 04/30/20 11:04:00 EST, Height, 63.5, kg, 08/07/19 9:46:00 EDT, Dry Weight Start Date: 04/30/20 Status: Ordered Creon 36,000 units oral delayed release capsule 1 capsule, By Mouth, 3 times a day, with each meal, # 90 capsule, 3 Refills, Maintenance, 08/07/19 11:39:00 EDT, [facility] #[id number], 1 capsule By Mouth 3 times a day,Instr:with each meal, 168, cm, 08/07/19 9:46:00 EDT, Height, 63.5, kg, 08/06... Start Date: 08/07/19 Status: Ordered ENSURE/VANILLA ENSURE/VANILLA, See Instructions, # 6 pack/packet, Refills 11, Tot. Refills 11, Maintenance, [facility] Protein Formula TID DX Pancreatitis Weight Loss 3 [place] 1 Vanilla, 06/25/20 9:20:00 EST, Compound Start [...] 04/22/20 13:38:00 EST, Route to Pharmacy Electronically, [facility] #[id number], Partial fill upon patient request, 168, cm, [...] 5 Refills, Maintenance, 04/22/20 13:08:00 EST, Tablet, [facility] #85078, 1 tablet By Mouth Daily,x30 days, 168, cm, 04/22/20 12:49:00 EST, Height, 63.5, kg, 08/07/19 9:46:00 EDT, Dry Weight Start Date: 04/22/20 Stop Date: 10/19/20 Status: Ordered omeprazole 40 mg oral enteric coated capsule 1 capsule = 40 mg, By Mouth, Daily, # 30 capsule, 10 Refills, Maintenance, 04/22/20 13:08:00 EST, EC Capsule, [facility] #[id number], 168, cm, 04/22/20 12:49:00 EST, Height, 63.5, [...] Stop 07/24/20 11:31:00 EST, 06/24/20 11:31:00 EST, [facility] #22146, Partial fill upon patient request if the [...] 8:18:00 EST, Aerosol, Route to Pharmacy Electronically, [id number], [facility] #[id number], 168, cm, 06/14/20 10:38:00... Start Date: 07/04/20 Status: Ordered tamsulosin 0.4 mg oral capsule 0.4 mg, 1, capsule, By Mouth, Daily, PER BELL HODGES, # 90 capsule, Refills 1, Tot. Refills 1, Maintenance, 04/29/20 16:06:00 EST, Route to Pharmacy Electronically, [facility] #[id number],Partial fill upon patient request, 168, cm, ... Start Date: 04/29/20 Status: Ordered tiZANidine 4 mg oral capsule 2 capsule = 8 mg, By Mouth, 3 times a day, 0 Refills, Maintenance, 10/13/19 10:32:00 EDT Start Date: 10/13/19 Status: Ordered traZODone 150 mg oral tablet 1 tablet, By Mouth, Daily at bedtime, PRN NEEDED FOR SLEEP, # 30 tablet, 5 Refills, Maintenance,04/22/20 13:08:00 EST, [facility] #58660, 168, cm, 04/22/20 12:49:00 EST, Height, 63.5, [...] 2018. 2Repeat EGD in 07/2020 for surveillance 30093; repeat 2019 4R shoulder 2018 5DrShabnam Choi (ENT surgeons) Social History Social History Type Response Smoking Status Current every day herve toney entered on: 12/17/15 Sex
--- OUTSIDE RECORDS SUMMARY | 2022-12-14 11:01 | XMS_ITS | Continuity of Care Document ---
Author Name Unknown Organization [facility] Address [address] [place] [address]- Care Team Providers Care Band Aid Machine Operator Name Role Phone Casey Suarez MD Primary Care Physician En[place] [facility] Date(s): 06/16/22 - 07/16/22 [facility] [address] [place] [address]- Attending Physician: AdmAan aguiar Admitting Physician: Admtr, Ar8 Referring Physician: Admtr, [...] en Parent Or Guardian Refuses 1Result Comment: [facility]# [id number] 2Result Comment: [facility]# [address] [phone] 3Result Comment: Pt tolerated well. [facility] #[id number] 4Location History: [facility] 5Result Comment: [05/06/2017] [facility]:4489-0995-38 Medications aspirin 81 mg oral delayed release tablet 1 tablet, By Mouth, Daily, # 90 tablet, 3 Refills, Maintenance, 06/09/22 10:43:00 EST, [facility] #[id number], 167.6, cm, 06/09/22 10:24:00 EST, Height, 63.6, kg, 09/22/21 9:54:00 EDT, Dry Weight Start Date: 06/09/22 Status: Ordered atorvastatin 80 mg oral tablet 1 tablet, By Mouth, Daily at bedtime, # 90 tablet, 1 Refills, Maintenance, 03/06/22 12:15:00 EDT, [facility] #[id number], 167.6, cm, 01/08/22 8:27:00 EDT, Height, 63.6, kg, 09/22/21 9:54:00 EDT,Dry Weight Start Date: 03/06/22 Status: Ordered EpiPen 2-Sameer 0.3 mg injectable kit = 0.3 mg, Intramuscular, Once, Must go to hospital if used, # 1 each, 1 Refills, Soft Stop, 01/09/21 14:45:00 EDT, [facility] #[id number], 167.64, cm, 01/09/21 14:27:00 EDT, Height, 63.64, kg, 10/30/20 11:22:00 EDT, Dry Weight Start Date: 01/09/21 Status: Ordered gabapentin 300 mg oral capsule 2, capsule, By Mouth, 2 times a day, # 120 capsule, Refills 1, Tot. Refills 1, Maintenance, 07/06/22 9:45:00 EST, Route to Pharmacy Electronically, [facility] #[id number], 167.6, cm, 06/16/22 7:22:00 EST, Height, 63.6, [...] tablet, 3 Refills, Maintenance, 06/09/22 10:44:00 EST, [facility] #[id number], 90, 1 tablet By Mouth Daily, 167.6, cm, 06/09/22 10:24:00 EST, Height, 63.6, kg, 09/22/21 9:54:00 EDT, Dry Weight Start Date: 06/09/22 Status: Ordered Nutritional Supplements See Instructions, # 90 each, Refills 11, Tot. Refills 11, Maintenance, High Protein Ensure Use TID DX Pancreatitis, Weight Loss ICD 10 K85.90 R63.4 3 [place] 3 Vanilla Height 5'6 Weight 130lbs, 12/20/20 7:33:00 EDT, Supply Start Date: 12/20/20 Status: Ordered omeprazole 40 mg oral enteric coated capsule 1 capsule, By Mouth, Daily, # 30 capsule, 2 Refills, Maintenance, 05/29/22 17:58:00 EST, [facility] #[id number], 167.6, cm, 03/19/22 9:24:00 EDT, Height, 63.6, kg, 09/22/21 9:54:00 EDT, Dry Weight Start Date: 05/29/22 Status: Ordered PEG-3350 with Electrolytes (Eqv-GoLYTELY) oral powder for reconstitution See Instructions, 1 glass every 15-30 minutes until finished, # 4,000 mL, 0 Refills, Maintenance, 08/26/20 16:28:00 EDT, [facility] #47044, Partial fill upon patient request if the prescription is for a schedule II opioid drug., 1 glass ever... Start Date: 08/26/20 Status: Ordered ProAir HFA 90 mcg/inh inhalation aerosol with adapter 2, puffs, Inhalation, Every 6 hours, PRN, # 8.5 Gm, Refills 5, Tot. Refills 5, Maintenance, 07/04/20 8:18:00 EST, Aerosol, Route to Pharmacy Electronically, [id number], [facility] #[id number], 168, cm, 06/14/20 10:38:00... Start Date: 07/04/20 [...] 04/07/22 13:27:00 EST, Route to Pharmacy Electronically, [facility] #[id number], 167.6, cm, 03/19/22 9:24:00 EDT, Height, 63.6,kg, [...] 90 tablet, 0 Refills, Maintenance,07/07/22 14:49:00 EST, [facility] #57884, 167.6, cm, 06/16/22 7:22:00 EST, Height, 63.6, [...] 2019. 2Repeat EGD in 07/2020 for surveillance 55025; repeat 2019 4R shoulder 2018 5Dr. Kelviner (ENT surgeons) Social History Social History Type Response Smoking Status 10 or more cigarette s (1/2 pack or more)/day in last 30 days entered on: 03/13/22 Sex Patient Care team information Care Team Personnel Name: April Landrum RN Position: [facility] RN Member Role: Primary Care Nurse Name: Talib Jensen RN Position: [facility] RN Member Role: Primary Care Nurse Name: Casey Suarez MD Position: [facility] Primary Care Physician Member Role: PCP Address: Address: [address] [place] [id number] Name: Frida Urban RN Position: [facility] RN Member Role: Primary Care Nurse Name: Betty Rodriguez RN Position: [facility] RN Member Role: Primary Care Nurse Name: Damon Elaine RN Position: [facility] SN RN Member Role: Primary Care Nurse Name: Neelima Manrique RN Position: [facility] RN Member Role: Primary Care Nurse Name: Maddisno Lindquist RN Position: [facility] SN RN Member Role: Primary Care Nurse Name: Mahesh Castillo RN Position: [facility] RN Member Role: Primary Care Nurse Name: Desiree Caballero RN Position: [facility] Hospital Firewall Engineer Member Role: Primary Care Nurse Name: Melvina Palacios RN Position: [facility] RN Member Role: Primary Care Nurse Name: Diandra Méndez RN Position: [facility] RN Member Role: Primary Care Nurse Care Team Related Persons Name: LAYLA NARAYANAN Address: home [address] [place] [id number]
--- OUTSIDE RECORDS SUMMARY | 2022-12-14 11:01 | XMS_ITS | Continuity of Care Document ---
Author Name Unknown Organization [facility] [place] [place] Address [address] [place] [address]- Care Team Providers Care Die Sinker Name Role Phone Daniela BROWN, Casey Jiménez Primary Care Physician Encounter [facility] Date(s): 05/09/21 - 06/08/21 [facility] [place] Adult [address] [place] [address]- Allergies, Adverse Reactions, Alerts Substance Reaction Severity [...] en Parent Or Guardian Refuses 1Result Comment: [facility]# [address] [id number] 2Result Comment: Pt tolerated well. [facility] #[id number] 3Location History: [facility] 4Result Comment: [05/06/2017] [facility]:8275-6961-32 Medications aspirin 81 mg oral delayed release tablet 81 mg, 1, tablet, By Mouth, Daily, # 90 tablet, Refills 1, Tot. Refills 1, Maintenance, 01/09/21 14:52:00 EDT, Route to Pharmacy Electronically, [facility] #[id number], Partial fill upon patientrequest if the prescription is for a schedule II op... Start Date: 01/09/21 Status: Ordered atorvastatin 80 mg oral tablet 1 tablet = 80 mg, By Mouth, Daily at bedtime, # 90 tablet, 3 Refills, Maintenance, 02/12/21 10:54:00 EDT, Tablet, [facility] #[id number], 167.64, cm, 01/13/21 9:46:00 EDT, Height, 63.64, kg, 10/30/20 11:22:00 EDT, Dry Weight Start Date: 02/12/21 Stop Date: 02/07/22 Status: Ordered clopidogrel 75 mg oral tablet 75 mg, 1, tablet, By Mouth, Daily, # 30 tablet, Refills 11, Tot. Refills 11, Maintenance, 12/09/20 17:12:00 EDT, Route to Pharmacy Electronically, [facility] #[id number], Partial fill upon patient request if the prescription is for a schedule II... Start Date: 12/09/20 Status: Ordered EpiPen 2-Sameer 0.3 mg injectable kit = 0.3 mg, Intramuscular, Once, Must go to hospital if used, # 1 each, 1 Refills, Soft Stop, 01/09/21 14:45:00 EDT, [facility] #[id number], 167.64, cm, 01/09/21 14:27:00 EDT, Height, 63.64, [...] 01/13/21 9:59:00 EDT, Route to Pharmacy Electronically, [facility] #[id number], Partial fill upon patient request if the prescription is for a schedule II opi... Start Date: 01/13/21 Status: Ordered multivitamin Multiple Vitamins oral tablet 1 tablet, By Mouth, Daily, # 90 tablet, 1 Refills, Maintenance, 01/09/21 14:44:00 EDT, Tablet, [facility] #[id number], 1 tablet By Mouth Daily, 167.64, cm, 01/09/21 14:27:00 EDT, Height, 63.64, kg, 10/30/20 11:22:00 EDT, Dry Weight Start Date: 01/09/21 Status: Ordered Nutritional Supplements See Instructions, # 90 each, Refills 11, Tot. Refills 11, Maintenance, High Protein Ensure Use TID DX Pancreatitis, Weight Loss ICD 10 K85.90 R63.4 3 [place] 3 Vanilla Height 5'6 Weight 130lbs, 12/20/20 7:33:00 EDT, Supply Start Date: 12/20/20 Status: Ordered omeprazole 40 mg oral enteric coated capsule 1 capsule = 40 mg, By Mouth, Daily, # 30 capsule, 2 Refills, Maintenance, 01/14/21 14:05:00 EDT, ECCapsule, [facility] #[id number], 167.64, cm, 01/13/21 9:46:00 EDT, Height, 63.64, kg, 10/30/2110:22:00 EDT, Dry Weight Start Date: 01/14/21 Stop Date: 04/14/21 Status: Ordered PEG-3350 with Electrolytes (Eqv-GoLYTELY) oral powder for reconstitution See Instructions, 1 glass every 15-30 minutes until finished, # 4,000 mL, 0 Refills, Maintenance, 08/26/20 16:28:00 EDT, [facility] #[id number], Partial fill upon patient request if the prescription is for a schedule II opioid drug., 1 glass ever... Start Date: 08/26/20 Status: Ordered ProAir HFA 90 mcg/inh inhalation aerosol with adapter 2, puffs, Inhalation, Every 6 hours, PRN, # 8.5 Gm, Refills 5, Tot. Refills 5, Maintenance, 07/04/20 8:18:00 EST, Aerosol, Route to Pharmacy Electronically, [id number], [facility] #[id number], 168, cm, 06/14/20 10:38:00... Start Date: 07/04/20 [...] capsule, Refills 1, Route to Pharmacy Electronically, [facility] #[id number], 167.64, cm, 03/20/21 8:49:00 EDT, Height, 63.64, [...] FOR SLEEP, # 90 tablet, 1 Refills, [facility] #[id number], 167.64, cm, 03/20/21 8:49:00 EDT, Height, 63.64, [...] 2019. 2Repeat EGD in 07/2020 for surveillance 25206; repeat 2019 4R shoulder [address] 5Dr. Jimbo (ENT surgeons) Social History Social History Type Response Smoking Status Current every day herve toney entered on: 12/17/15 Sex
--- OUTSIDE RECORDS SUMMARY | 2022-12-14 11:01 | XMS_ITS | Continuity of Care Document ---
Author Name Unknown Organization 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 Adult [address] [place] [address]- Attending Physician: Ana Del Angel Admitting Physician: AdmtrAna Referring Physician: Admtr Ar8 Allergies, Adverse Reactions, Alerts Substance Reaction [...] Refuses 1Result Comment: [facility]:8123-9588-06 2Result Comment: [facility]# 60156-890-15 3Result Comment: [facility]# [address] [phone] 4Result Comment: Pt tolerated well. [facility] #[id number] 5Location History: [facility] 6Result Comment: [05/06/2017] [facility]:1860-8231-84 Medications aspirin 81 mg oral delayed release tablet 1 tablet, By Mouth, Daily, # 90 tablet, 3 Refills, Maintenance, 06/09/22 10:43:00 EST, [facility] #[id number], 167.6, cm, 06/09/22 10:24:00 EST, Height, 63.6, kg, 09/22/21 9:54:00 EDT, Dry Weight Start Date: 06/09/22 Status: Ordered atorvastatin 80 mg oral tablet 1 tablet, By Mouth, Daily at bedtime, # 90 tablet, 0 Refills, Maintenance, 09/02/22 8:23:00 EDT, [facility] #[id number], 167.6, cm, 06/16/22 7:22:00 EST, Height, 63.6, kg, 09/22/21 9:54:00 EDT, Dry Weight Start Date: 09/02/22 Status: Ordered EpiPen 2-Sameer 0.3 mg injectable kit = 0.3 mg, Intramuscular, Once, Must go to hospital if used, # 1 each, 1 Refills, Soft Stop, 01/09/21 14:45:00 EDT, [facility] #65228, 167.64, cm, 01/09/21 14:27:00 EDT, Height, 63.64, kg, 10/30/20 11:22:00 EDT, Dry Weight Start Date: 01/09/21 Status: Ordered gabapentin 300 mg oral capsule 2, capsule, By Mouth, 2 times a day, # 120 capsule, Refills 5, Maintenance, 11/05/22 11:24:00 EDT, Route to Pharmacy Electronically, [facility] #[id number], 167.6, cm, 10/22/22 8:47:00 EDT, Height, 63.6, kg, 09/22/21 9:54:00 EDT, Dry Weight Start Date: 11/05/22 Status: Ordered Large Blood Pressure Cuff Large [...] tablet, 3 Refills, Maintenance, 06/09/22 10:44:00 EST, [facility] #[id number], 90, 1 tablet By Mouth Daily, 167.6, cm, 06/09/22 10:24:00 EST, Height, 63.6, kg, 09/22/21 9:54:00 EDT, Dry Weight Start Date: 06/09/22 Status: Ordered Nutritional Supplements See Instructions, # 90 each, Refills 11, Tot. Refills 11, Maintenance, High Protein Ensure Use TID DX Pancreatitis, Weight Loss ICD 10 K85.90 R63.4 3 [place] 3 Vanilla Height 5'6 Weight 130lbs, 12/20/20 7:33:00 EDT, Supply Start Date: 12/20/20 Status: Ordered omeprazole 40 mg oral enteric coated capsule 1 capsule, By Mouth, Daily, # 30 capsule, 2 Refills, Maintenance, 09/01/22 10:42:00 EDT, [facility] #53994, 167.6, cm, 06/16/22 7:22:00 EST, Height, 63.6, kg, 09/22/21 9:54:00 EDT, Dry Weight Start Date: 09/01/22 Status: Ordered PEG-3350 with Electrolytes (Eqv-GoLYTELY) oral powder for reconstitution See Instructions, 1 glass every 15-30 minutes until finished, # 4,000 mL, 0 Refills, Maintenance, 08/26/20 16:28:00 EDT, [facility] #55254, Partial fill upon patient request if the prescription is for a schedule II opioid drug., 1 glass ever... Start Date: 08/26/20 Status: Ordered ProAir HFA 90 mcg/inh inhalation aerosol with adapter 2, puffs, Inhalation, Every 6 hours, PRN, # 8.5 Gm, Refills 5, Tot. Refills 5, Maintenance, 07/04/20 8:18:00 EST, Aerosol, Route to Pharmacy Electronically, [id number], [facility] #[id number], 168, cm, 06/14/20 10:38:00... Start Date: 07/04/20 [...] 10/15/22 9:26:00 EDT, Route to Pharmacy Electronically, [facility] #[id number], 167.6, cm, 10/15/22 9:15:00 EDT, Height, 63.6, [...] 90 tablet, 1 Refills, Maintenance,09/02/22 10:55:00 EDT, [facility] #[id number], 167.6, cm, 06/16/22 7:22:00 EST, Height, 63.6, [...] 2019. 2Repeat EGD in 07/2020 for surveillance 67575; repeat 2019 4R shoulder 2018 5DrShabnam Choi (ENT surgeons) Social History Social History Type Response Smoking Status 10 or more cigarette s (1/2 pack or more)/day in last 30 days entered on: 03/13/22 Sex Laboratory * Event Display: Non Lab Results Authored Date: Radiology * Event Display: MRI Spine, Non- BH Authored Date: * Event Display: X-Ray Hand/Wrist Authored Date: * Event Display: CT Scan Head, Non- BH Authored Date: XR Skull Views * Event Display: X-Ray Head Authored Date: CT Head * Event Display: CT Scan Head Authored Date: MR Spine * Event Display: MRI Spine Authored Date: Patient Care team information Care Team Personnel Name: April Landrum RN Position: [facility] RN Member Role: Primary Care Nurse Name: Talib Jensen RN Position: [facility] RN Member Role: Primary Care Nurse Name: Casey Suarez MD Position: [facility] Physician - Primary Care Member Role: PCP Address: Address: [address] [place] [id number] Name: Betty Rodriguez RN Position: [facility] RN Member Role: Primary Care Nurse Name: Damon Elaine RN Position: [facility] SN RN Member Role: Primary Care Nurse Name: Neelima Manrique RN Position: [facility] RN Member Role: Primary Care Nurse Name: Maddison Lindquist RN Position: [facility] SN RN Member Role: Primary Care Nurse Name: Mahesh Castillo RN Position: [facility] RN Member Role: Primary Care Nurse Name: Desiree Caballero RN Position: [facility] Hospital Packing Clerk Member Role: Primary Care Nurse Name: Melvina Palacios RN Position: [facility] RN Member Role: Primary Care Nurse Name: Diandra Méndez RN Position: [facility] RN Member Role: Primary Care Nurse Care Team Related Persons Name: LAYLA NARAYANAN Address: home [address] [place] [id number]
--- OUTSIDE RECORDS SUMMARY | 2022-12-14 11:01 | XMS_ITS | Continuity of Care Document ---
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 [facility] #[id number] 2Location History: [facility] 3Result Comment: [05/06/2017] [facility]:2007-7853-11 Medications amiodarone 200 mg oral tablet 200 mg, 1, tablet, By Mouth, 2 times a day, # 60 tablet, Refills 0, Tot. Refills 0, Maintenance, 11/13/20 9:34:00 EDT, Route to Pharmacy Electronically, [facility], Partial fill upon patient request if the prescription is for a schedule... Start Date: 11/13/20 Status: Ordered aspirin 81 mg oral delayed release tablet 81 mg, 1, tablet, By Mouth, Daily, Future refills to come from cardiology or PCP, # 30 tablet, Refills 0, Tot. Refills 0, Maintenance, 12/13/20 9:32:00 EDT, Route to Pharmacy Electronically, [facility] #[id number], Partial fill upon patient reque... Start Date: 12/13/20 Stop Date: 01/12/21 Status: Ordered atorvastatin 80 mg oral tablet 1 tablet = 80 mg, By Mouth, Daily at bedtime, # 90 tablet, 4 Refills, Maintenance, 02/07/21 10:28:00 EDT, Tablet, [facility] #[id number], Partial fill upon patient request if the prescription isfor a schedule II opioid drug., 167.64, cm, ... Start Date: 02/07/21 Stop Date: 05/03/22 Status: Ordered atorvastatin 80 mg oral tablet 1 tablet = 80 mg, By Mouth, Daily at bedtime, for 30 days, # 30 tablet, 1 Refills, Hard Stop 02/07/21 10:28:00 EDT, 12/09/20 10:28:00 EDT, Tablet, [facility] #16855, Partial fill upon patient request if the prescription is for a schedule II... Start Date: 12/09/20 Stop Date: 02/07/21 Status: Ordered clopidogrel 75 mg oral tablet 75 mg, 1, tablet, By Mouth, Daily, # 30 tablet, Refills 11, Tot. Refills 11, Maintenance, 12/09/20 17:12:00 EDT, Route to Pharmacy Electronically, [facility] #[id number], Partial fill upon patient request if the prescription is for a schedule II... Start Date: 12/09/20 Status: Ordered docusate sodium 100 mg oral tablet = 100 mg, By Mouth, 2 times a day, # 6 tablet, 0 Refills, Maintenance, 11/13/20 9:34:00 EDT, Tablet, [facility], Partial fill upon patient request if [...] 11/13/20 9:32:00 EDT, Route to Pharmacy Electronically, [facility], Partial fill upon patient request, 167.64, cm, 11/13/20 6:08:00 EDT, H... Start Date: 11/13/20 Stop Date: 06/11/21 Status: Ordered metoprolol 50 mg oral tablet 50 mg, 1, tablet, By Mouth, 2 times a day, Future refills to come from cardiology or PCP, # 60 capsule, Refills 0, Tot. Refills 0, Maintenance, 12/13/20 9:33:00 EDT, Route to Pharmacy Electronically,[facility] #[id number], Metoprolol tartrate ta... Start Date: 12/13/20 Stop Date: 01/12/21 Status: Ordered multivitamin Multiple Vitamins oral tablet 1 tablet, By Mouth, Daily, # 30 tablet, 0 Refills, Maintenance, 12/09/20 17:12:00 EDT, Tablet, [facility] #25602, 1 tablet By Mouth Daily, 167.64, cm, 11/22/20 15:34:00 EDT, Height, 63.64, kg, 10/30/20 11:22:00 EDT, Dry Weight Start Date: 12/09/20 Stop Date: 06/07/21 Status: Ordered Nutritional Supplements See Instructions, # 90 each, Refills 11, Tot. Refills 11, Maintenance, High Protein Ensure Use TID DX Pancreatitis, Weight Loss ICD 10 K85.90 R63.4 3 [place] 3 Vanilla Height 5'6 Weight 130lbs, 12/20/20 7:33:00 EDT, Supply Start Date: 12/20/20 Status: Ordered omeprazole 40 mg oral enteric coated capsule 1 capsule = 40 mg, By Mouth, Daily, # 30 capsule, 10 Refills, Maintenance, 04/22/20 13:08:00 EST, EC Capsule, [facility] #[id number], 168, cm, 04/22/20 12:49:00 EST, Height, 63.5, [...] mL, 0 Refills, Maintenance, 08/26/20 16:28:00 EDT, [facility] #[id number], Partial fill upon patient request if the prescription is for a schedule II opioid drug., 1 glass ever... Start Date: 08/26/20 Status: Ordered ProAir HFA 90 mcg/inh inhalation aerosol with adapter 2, puffs, Inhalation, Every 6 hours, PRN, # 8.5 Gm, Refills 5, Tot. Refills 5, Maintenance, 07/04/20 8:18:00 EST, Aerosol, Route to Pharmacy Electronically, [id number], [facility] #04485, 168, cm, 06/14/20 10:38:00... Start Date: 07/04/20 Status: Ordered tamsulosin 0.4 mg oral capsule 0.4 mg, 1, capsule, By Mouth, Daily, PER BELL HODGES, # 90 capsule, Refills 1, Tot. Refills 1, Maintenance, 10/16/20 8:15:00 EDT, Route to Pharmacy Electronically, [facility] #[id number], Partial fill upon patient request, 168, cm, 10/16/20... Start Date: 10/16/20 Status: Ordered traZODone 150 mg oral tablet 1 tablet, By Mouth, Daily at bedtime, PRN NEEDED FOR SLEEP, # 90 tablet, 1 Refills, Maintenance,10/16/20 8:15:00 EDT, [facility] #[id number], 168, cm, 10/16/20 7:49:00 EDT, Height, 60, [...] 2018. 2Repeat EGD in 07/2020 for surveillance 10753; repeat 2019 4R shoulder 2017 5Dr. Jimbo (ENT surgeons) Social History Social History Type Response Smoking Status Current every day herve toney entered on: 12/17/15 Sex
--- OUTSIDE RECORDS SUMMARY | 2022-12-14 11:01 | XMS_ITS | Continuity of Care Document ---
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# [address] [id number] 2Result Comment: Pt tolerated well. [facility] #[id number] 3Location History: [facility] 4Result Comment: [05/06/2017] [facility]:6812-8818-68 Medications aspirin 81 mg oral delayed release tablet 1 tablet, By Mouth, Daily, # 90 tablet, 0 Refills, [facility] #[id number], 167.64, cm, 04/21/21 13:13:00 EST, Height, 63.64, kg, 10/30/20 11:22:00 EDT, Dry Weight Start Date: 07/11/21 Status: Ordered atorvastatin 80 mg oral tablet 1 tablet = 80 mg, By Mouth, Daily at bedtime, # 90 tablet, 3 Refills, Maintenance, 08/14/21 15:28:00 EDT, Tablet, [facility] #[id number], 167.64, cm, 08/14/21 15:12:00 EDT, Height, 63.64, kg, 10/30/20 11:22:00 EDT, Dry Weight Start Date: 08/14/21 Stop Date: 08/09/22 Status: Ordered clopidogrel 75 mg oral tablet 75 mg, 1, tablet, By Mouth, Daily, # 30 tablet, Refills 11, Tot. Refills 11, Maintenance, 12/09/20 17:12:00 EDT, Route to Pharmacy Electronically, [facility] #[id number], Partial fill upon patient request if the prescription is for a schedule II... Start Date: 12/09/20 Status: Ordered EpiPen 2-Sameer 0.3 mg injectable kit = 0.3 mg, Intramuscular, Once, Must go to hospital if used, # 1 each, 1 Refills, Soft Stop, 01/09/21 14:45:00 EDT, [facility] #[id number], 167.64, cm, 01/09/21 14:27:00 EDT, Height, 63.64, [...] Mouth, Daily, # 90 tablet, 1 Refills, [facility] #64584, 90, TAKE 1 TABLET BY MOUTH DAILY, 167.64, cm, 04/21/21 13:13:00 EST, Height, 63.64, kg, 10/30/20 11:22:00 EDT, Dry Weight Start Date: 07/10/21 Status: Ordered Nutritional Supplements See Instructions, # 90 each, Refills 11, Tot. Refills 11, Maintenance, High Protein Ensure Use TID DX Pancreatitis, Weight Loss ICD 10 K85.90 R63.4 3 [place] 3 Vanilla Height 5'6 Weight 130lbs, 12/20/20 7:33:00 EDT, Supply Start Date: 12/20/20 Status: Ordered omeprazole 40 mg oral enteric coated capsule 1 capsule = 40 mg, By Mouth, Daily, # 30 capsule, 2 Refills, Maintenance, 09/10/21 14:25:00 EDT, ECCapsule, [facility] #83765, 167.64, cm, 09/01/21 8:31:00 EDT, Height, 63.64, kg, 10/30/2110:22:00 EDT, Dry Weight Start Date: 09/10/21 Stop Date: 12/09/21 Status: Ordered PEG-3350 with Electrolytes (Eqv-GoLYTELY) oral powder for reconstitution See Instructions, 1 glass every 15-30 minutes until finished, # 4,000 mL, 0 Refills, Maintenance, 08/26/20 16:28:00 EDT, [facility] #56289, Partial fill upon patient request if the prescription is for a schedule II opioid drug., 1 glass ever... Start Date: 08/26/20 Status: Ordered ProAir HFA 90 mcg/inh inhalation aerosol with adapter 2, puffs, Inhalation, Every 6 hours, PRN, # 8.5 Gm, Refills 5, Tot. Refills 5, Maintenance, 07/04/20 8:18:00 EST, Aerosol, Route to Pharmacy Electronically, [id number], [facility] #[id number], 168, cm, 06/14/20 10:38:00... Start Date: 07/04/20 [...] capsule, Refills 1, Route to Pharmacy Electronically, [facility] #69604, 167.64, cm, 03/20/21 8:49:00 EDT, Height, 63.64, [...] FOR SLEEP, # 90 tablet, 1 Refills, [facility] #37508, 167.64, cm, 03/20/21 8:49:00 EDT, Height, 63.64, [...] 2018. 2Repeat EGD in 07/2020 for surveillance 64263; repeat 2019 4R shoulder 2017 5Dr. Jimbo (ENT surgeons) Social History Social History Type Response Smoking Status Current every day herve toney entered on: 12/17/15 Sex
--- OUTSIDE RECORDS SUMMARY | 2022-12-14 11:01 | XMS_ITS | Continuity of Care Document ---
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 [facility] #[id number] 3Location History: [facility] 4Result Comment: [05/06/2017] [facility]:9060-5868-45 Medications aspirin 81 mg oral delayed release tablet 81 mg, 1, tablet, By Mouth, Daily, # 90 tablet, Refills 1, Tot. Refills 1, Maintenance, 01/09/21 14:52:00 EDT, Route to Pharmacy Electronically, [facility] #[id number], Partial fill upon patientrequest if the prescription is for a schedule II op... Start Date: 01/09/21 Status: Ordered atorvastatin 80 mg oral tablet 1 tablet = 80 mg, By Mouth, Daily at bedtime, # 90 tablet, 3 Refills, Maintenance, 02/12/21 10:54:00 EDT, Tablet, [facility] #[id number], 167.64, cm, 01/13/21 9:46:00 EDT, Height, 63.64, kg, 10/30/20 11:22:00 EDT, Dry Weight Start Date: 02/12/21 Stop Date: 02/07/22 Status: Ordered clopidogrel 75 mg oral tablet 75 mg, 1, tablet, By Mouth, Daily, # 30 tablet, Refills 11, Tot. Refills 11, Maintenance, 12/09/20 17:12:00 EDT, Route to Pharmacy Electronically, [facility] #[id number], Partial fill upon patient request if the prescription is for a schedule II... Start Date: 12/09/20 Status: Ordered EpiPen 2-Sameer 0.3 mg injectable kit = 0.3 mg, Intramuscular, Once, Must go to hospital if used, # 1 each, 1 Refills, Soft Stop, 01/09/21 14:45:00 EDT, [facility] #[id number], 167.64, cm, 01/09/21 14:27:00 EDT, Height, 63.64, [...] 01/13/21 9:59:00 EDT, Route to Pharmacy Electronically, [facility] #[id number], Partial fill upon patient request if the prescription is for a schedule II opi... Start Date: 01/13/21 Status: Ordered multivitamin Multiple Vitamins oral tablet 1 tablet, By Mouth, Daily, # 90 tablet, 1 Refills, Maintenance, 01/09/21 14:44:00 EDT, Tablet, [facility] #[id number], 1 tablet By Mouth Daily, 167.64, cm, 01/09/21 14:27:00 EDT, Height, 63.64, kg, 10/30/20 11:22:00 EDT, Dry Weight Start Date: 01/09/21 Status: Ordered Nutritional Supplements See Instructions, # 90 each, Refills 11, Tot. Refills 11, Maintenance, High Protein Ensure Use TID DX Pancreatitis, Weight Loss ICD 10 K85.90 R63.4 3 [place] 3 Vanilla Height 5'6 Weight 130lbs, 12/20/20 7:33:00 EDT, Supply Start Date: 12/20/20 Status: Ordered omeprazole 40 mg oral enteric coated capsule 1 capsule = 40 mg, By Mouth, Daily, # 30 capsule, 2 Refills, Maintenance, 01/14/21 14:05:00 EDT, ECCapsule, [facility] #42253, 167.64, cm, 01/13/21 9:46:00 EDT, Height, 63.64, kg, 10/30/2110:22:00 EDT, Dry Weight Start Date: 01/14/21 Stop Date: 04/14/21 Status: Ordered PEG-3350 with Electrolytes (Eqv-GoLYTELY) oral powder for reconstitution See Instructions, 1 glass every 15-30 minutes until finished, # 4,000 mL, 0 Refills, Maintenance, 08/26/20 16:28:00 EDT, [facility] #[id number], Partial fill upon patient request if the prescription is for a schedule II opioid drug., 1 glass ever... Start Date: 08/26/20 Status: Ordered ProAir HFA 90 mcg/inh inhalation aerosol with adapter 2, puffs, Inhalation, Every 6 hours, PRN, # 8.5 Gm, Refills 5, Tot. Refills 5, Maintenance, 07/04/20 8:18:00 EST, Aerosol, Route to Pharmacy Electronically, [id number], [facility] #[id number], 168, cm, 06/14/20 10:38:00... Start Date: 07/04/20 [...] capsule, Refills 1, Route to Pharmacy Electronically, [facility] #[id number], 167.64, cm, 03/20/21 8:49:00 EDT, Height, 63.64, [...] FOR SLEEP, # 90 tablet, 1 Refills, [facility] #[id number], 167.64, cm, 03/20/21 8:49:00 EDT, Height, 63.64, [...] 2019. 2Repeat EGD in 07/2020 for surveillance 17221; repeat 2019 4R shoulder [address] 5Dr. Jimbo (ENT surgeons) Social History Social History Type Response Smoking Status Current every day herve toney entered on: 12/17/15 Sex
--- OUTSIDE RECORDS SUMMARY | 2022-12-14 11:01 | XMS_ITS | Continuity of Care Document ---
Author Name Unknown Organization [facility] [place] Address [address] [place] [address]- Care Team Providers Care Credit Rating Checker Name Role Phone Casey Suarez MD Primary Care Physician [place] [facility] [place] 08/29/20 [facility] Adult [address] [place] [address]- Allergies, Adverse Reactions, Alerts Substance Reaction Severity [...] Guardian Refuses 1Result Comment: Pt tolerated well. [facility] #[id number] 2Location History: [facility] 3Result Comment: [05/06/2017] [facility]:[id number] Medications Creon 36,000 units oral delayed release capsule 1 capsule, By Mouth, 3 times a day, with each meal, # 90 capsule, 3 Refills, Maintenance, 08/07/19 11:39:00 EDT, [facility] #[id number], 1 capsule By Mouth 3 times a day,Instr:with each meal, 168, cm, 08/07/19 9:46:00 EDT, Height, 63.5, kg, 08/06... Start Date: 08/07/19 Status: Ordered ENSURE/VANILLA ENSURE/VANILLA, See Instructions, # 6 pack/packet, Refills 11, Tot. Refills 11, Maintenance, EnsureMax Protein Formula TID DX Pancreatitis Weight Loss 3 [place] 1 Vanilla, 08/28/20 7:45:00 EDT, Compound Start [...] 04/22/20 13:38:00 EST, Route to Pharmacy Electronically, [facility] #[id number], Partial fill upon patient request, 168, cm, 04/22/20 12:49:00 EST,... Start Date: 04/22/20 Status: Ordered multivitamin Multiple Vitamins oral tablet 1 tablet, By Mouth, Daily, # 30 tablet, 5 Refills, Maintenance, 04/22/20 13:08:00 EST, Tablet, [facility] #[id number], 1 tablet By Mouth Daily,x30 days, 168, cm, 04/22/20 12:49:00 EST, Height, 63.5, kg, 08/07/19 9:46:00 EDT, Dry Weight Start Date: 04/22/20 Stop Date: 10/19/20 Status: Ordered omeprazole 40 mg oral enteric coated capsule 1 capsule = 40 mg, By Mouth, Daily, # 30 capsule, 10 Refills, Maintenance, 04/22/20 13:08:00 EST, EC Capsule, [facility] #83801, 168, cm, 04/22/20 12:49:00 EST, Height, 63.5, [...] mL, 0 Refills, Maintenance, 08/26/20 16:28:00 EDT, [facility] #26369, Partial fill upon patient request if the prescription is for a schedule II opioid drug., 1 glass ever... Start Date: 08/26/20 Status: Ordered ProAir HFA 90 mcg/inh inhalation aerosol with adapter 2, puffs, Inhalation, Every 6 hours, PRN, # 8.5 Gm, Refills 5, Tot. Refills 5, Maintenance, 07/04/20 8:18:00 EST, Aerosol, Route to Pharmacy Electronically, [id number], [facility] #19007, 168, cm, 06/14/20 10:38:00... Start Date: 07/04/20 Status: Ordered tamsulosin 0.4 mg oral capsule 0.4 mg, 1, capsule, By Mouth, Daily, PER BELL HODGES, # 90 capsule, Refills 1, Tot. Refills 1, Maintenance, 04/29/20 16:06:00 EST, Route to Pharmacy Electronically, [facility] #[id number],Partial fill upon patient request, 168, cm, ... Start Date: 04/29/20 Status: Ordered traZODone 150 mg oral tablet 1 tablet, By Mouth, Daily at bedtime, PRN NEEDED FOR SLEEP, # 30 tablet, 5 Refills, Maintenance,04/22/20 13:08:00 EST, [facility] #70973, 168, cm, 04/22/20 12:49:00 EST, Height, 63.5, [...] 2019. 2Repeat EGD in 07/2020 for surveillance 14125; repeat 2019 4R shoulder 2018 5DrShabnam Choi (ENT surgeons) Social History Social History Type Response Smoking Status Current every day herve toney entered on: 12/17/15 Sex
--- OUTSIDE RECORDS SUMMARY | 2022-12-14 11:01 | XMS_ITS | Continuity of Care Document ---
Author Name Unknown Organization [facility] [place] Address [address] [place] [address]- Care Team Providers Care Aspnet Developer Name Role Phone Casey Suarez MD Primary Care Physician [facility] Date[facility]s): 01/08/22 - 01/15/22 [facility] Adult [address] [place] [address]- Attending Physician: Derrick Montgomery MD Allergies, Adverse Reactions, Alerts Substance Reaction [...] en Parent Or Guardian Refuses 1Result Comment: [facility]# [address] [phone] 2Result Comment: Pt tolerated well. [facility] #[id number] 3Location History: [facility] 4Result Comment: [05/06/2017] [facility]:[id number] Medications aspirin 81 mg oral delayed release tablet 1 tablet, By Mouth, Daily, # 90 tablet, 0 Refills, [facility] #[id number], 167.6, cm, 228:27:00 EDT, Height, 63.6, kg, 09/22/21 9:54:00 EDT, Dry Weight Start Date: 01/08/22 Status: Ordered atorvastatin 80 mg oral tablet 1 tablet = 80 mg, By Mouth, Daily at bedtime, # 90 tablet, 3 Refills, Maintenance, 08/14/21 15:28:00 EDT, Tablet, [facility] #[id number], 167.64, cm, 08/14/21 15:12:00 EDT, Height, 63.64, kg, 10/30/20 11:22:00 EDT, Dry Weight Start Date: 08/14/21 Stop Date: 08/09/22 Status: Ordered clopidogrel 75 mg oral tablet 75 mg, 1, tablet, By Mouth, Daily, # 30 tablet, Refills 11, Tot. Refills 11, Maintenance, 12/09/20 17:12:00 EDT, Route to Pharmacy Electronically, [facility] #[id number], Partial fill upon patient request if the prescription is for a schedule II... Start Date: 12/09/20 Status: Ordered EpiPen 2-Sameer 0.3 mg injectable kit = 0.3 mg, Intramuscular, Once, Must go to hospital if used, # 1 each, 1 Refills, Soft Stop, 01/09/21 14:45:00 EDT, [facility] #[id number], 167.64, cm, 01/09/21 14:27:00 EDT, Height, 63.64, kg, 10/30/20 11:22:00 EDT, Dry Weight Start Date: 01/09/21 Status: Ordered gabapentin 300 mg oral capsule 600 mg, 2, capsule, By Mouth, 2 times a day, # 120 capsule, Refills 0, Tot. Refills 0, Maintenance,01/08/22 8:39:00 EDT, Route to Pharmacy Electronically, [facility] #[id number], Partial fill upon patient request, 167.6, cm, [...] Mouth, Daily, # 90 tablet, 1 Refills, [facility] #58174, 167.6, cm, 229:54:00 EDT, Height, 63.6, kg, 09/22/21 9:54:00 EDT, Dry Weight Start Date: 10/06/21 Status: Ordered multivitamin Multiple Vitamins oral tablet 1 tablet, By Mouth, Daily, # 90 tablet, 1 Refills, [facility] #[id number], 90, TAKE 1 TABLET BY MOUTH DAILY, 167.64, cm, 04/21/21 13:13:00 EST, Height, 63.64, kg, 10/30/20 11:22:00 EDT, Dry Weight Start Date: 07/10/21 Status: Ordered Nutritional Supplements See Instructions, # 90 each, Refills 11, Tot. Refills 11, Maintenance, High Protein Ensure Use TID DX Pancreatitis, Weight Loss ICD 10 K85.90 R63.4 3 [place] 3 Vanilla Height 5'6 Weight 130lbs, 12/20/20 7:33:00 EDT, Supply Start Date: 12/20/20 Status: Ordered omeprazole 40 mg oral enteric coated capsule 1 capsule, By Mouth, Daily, # 30 capsule, 2 Refills, [facility] #[id number], 167.6, cm, 11/06/21 15:13:00 EDT, Height, 63.6, kg, 09/22/21 9:54:00 EDT, Dry Weight Start Date: 12/10/21 Status: Ordered PEG-3350 with Electrolytes (Eqv-GoLYTELY) oral powder for reconstitution See Instructions, 1 glass every 15-30 minutes until finished, # 4,000 mL, 0 Refills, Maintenance, 08/26/20 16:28:00 EDT, [facility] #[id number], Partial fill upon patient request if the prescription is for a schedule II opioid drug., 1 glass ever... Start Date: 08/26/20 Status: Ordered ProAir HFA 90 mcg/inh inhalation aerosol with adapter 2, puffs, Inhalation, Every 6 hours, PRN, # 8.5 Gm, Refills 5, Tot. Refills 5, Maintenance, 07/04/20 8:18:00 EST, Aerosol, Route to Pharmacy Electronically, [id number], [facility] #[id number], 168, cm, 06/14/20 10:38:00... Start Date: 07/04/20 [...] capsule, Refills 1, Route to Pharmacy Electronically, [facility] #[id number], 167.6, cm, 09/22/21 9:54:00 EDT, Height, 63.6, [...] FOR SLEEP, # 90 tablet, 1 Refills, [facility] #13132, 167.6, cm, 09/22/21 9:54:00 EDT, Height, 63.6, [...] 2018. 2Repeat EGD in 07/2020 for surveillance 40409; repeat 2019 4R shoulder 2018 5DrShabnam Choi (ENT surgeons) Vital Signs Most recent to oldest [Reference Range]: 1 Height 167.6 cm (01/08/22 8:27 AM) Weight 55.9 kg (01/08/22 8:27 AM) Oxygen Saturation [94-100 %] 94 % (01/08/22 8:27 AM) Pulse Rate [55-90 bpm] 87 bpm (01/08/22 8:27 AM) Body Mass Index [18.5-24.99] 19.9 (01/08/22 8:27 AM) Blood Pressure [90-138/55-84 mm Hg] 116/ 62mm Hg (01/08/22 8:27 AM) Temperature [96.8-100.4 DegF] 98.4 DegF (01/08/22 8:27 AM) Mode of Delivery (Oxygen) Room air (01/08/22 8:27 AM) Blood pressure sites Arm, right (01/08/22 8:27 AM) Temperature Route Oral (01/08/22 8:27 AM) Weight Obtained Via Standing scale (01/08/22 8:27 AM) Social History Social History Type Response Smoking Status Current every day herve toney entered on: 12/17/15 Sex
--- OUTSIDE RECORDS SUMMARY | 2022-12-14 11:01 | XMS_ITS | Continuity of Care Document ---
Author Name Unknown Organization [facility] [place] Address [address] [place] [address]- Care Team Providers Care Fur Clipper Name Role Phone Daniela BROWN, Casey Jiménez Primary Care Physician [facility] Date[facility]s): 05/12/21 - 06/11/21 [facility] Adult [address] [place] [address]- Allergies, Adverse Reactions, Alerts Substance Reaction Severity [...] [facility]# [address] [phone] 2Result Comment: Pt tolerated well. [facility] #[id number] 3Location History: [facility] 4Result Comment: [05/06/2017] [facility]:0092-1687-00 Medications aspirin 81 mg oral delayed release tablet 81 mg, 1, tablet, By Mouth, Daily, # 90 tablet, Refills 1, Tot. Refills 1, Maintenance, 01/09/21 14:52:00 EDT, Route to Pharmacy Electronically, [facility] #[id number], Partial fill upon patientrequest if the prescription is for a schedule II op... Start Date: 01/09/21 Status: Ordered atorvastatin 80 mg oral tablet 1 tablet = 80 mg, By Mouth, Daily at bedtime, # 90 tablet, 3 Refills, Maintenance, 02/12/21 10:54:00 EDT, Tablet, [facility] #[id number], 167.64, cm, 01/13/21 9:46:00 EDT, Height, 63.64, kg, 10/30/20 11:22:00 EDT, Dry Weight Start Date: 02/12/21 Stop Date: 02/07/22 Status: Ordered clopidogrel 75 mg oral tablet 75 mg, 1, tablet, By Mouth, Daily, # 30 tablet, Refills 11, Tot. Refills 11, Maintenance, 12/09/20 17:12:00 EDT, Route to Pharmacy Electronically, [facility] #[id number], Partial fill upon patient request if the prescription is for a schedule II... Start Date: 12/09/20 Status: Ordered EpiPen 2-Sameer 0.3 mg injectable kit = 0.3 mg, Intramuscular, Once, Must go to hospital if used, # 1 each, 1 Refills, Soft Stop, 01/09/21 14:45:00 EDT, [facility] #[id number], 167.64, cm, 01/09/21 14:27:00 EDT, Height, 63.64, [...] 01/13/21 9:59:00 EDT, Route to Pharmacy Electronically, [facility] #[id number], Partial fill upon patient request if the prescription is for a schedule II opi... Start Date: 01/13/21 Status: Ordered multivitamin Multiple Vitamins oral tablet 1 tablet, By Mouth, Daily, # 90 tablet, 1 Refills, Maintenance, 01/09/21 14:44:00 EDT, Tablet, [facility] #45014, 1 tablet By Mouth Daily, 167.64, cm, 01/09/21 14:27:00 EDT, Height, 63.64, kg, 10/30/20 11:22:00 EDT, Dry Weight Start Date: 01/09/21 Status: Ordered Nutritional Supplements See Instructions, # 90 each, Refills 11, Tot. Refills 11, Maintenance, High Protein Ensure Use TID DX Pancreatitis, Weight Loss ICD 10 K85.90 R63.4 3 [place] 3 Vanilla Height 5'6 Weight 130lbs, 12/20/20 7:33:00 EDT, Supply Start Date: 12/20/20 Status: Ordered omeprazole 40 mg oral enteric coated capsule 1 capsule = 40 mg, By Mouth, Daily, # 30 capsule, 2 Refills, Maintenance, 01/14/21 14:05:00 EDT, ECCapsule, [facility] #[id number], 167.64, cm, 01/13/21 9:46:00 EDT, Height, 63.64, kg, 10/30/2110:22:00 EDT, Dry Weight Start Date: 01/14/21 Stop Date: 04/14/21 Status: Ordered PEG-3350 with Electrolytes (Eqv-GoLYTELY) oral powder for reconstitution See Instructions, 1 glass every 15-30 minutes until finished, # 4,000 mL, 0 Refills, Maintenance, 08/26/20 16:28:00 EDT, [facility] #[id number], Partial fill upon patient request if the prescription is for a schedule II opioid drug., 1 glass ever... Start Date: 08/26/20 Status: Ordered ProAir HFA 90 mcg/inh inhalation aerosol with adapter 2, puffs, Inhalation, Every 6 hours, PRN, # 8.5 Gm, Refills 5, Tot. Refills 5, Maintenance, 07/04/20 8:18:00 EST, Aerosol, Route to Pharmacy Electronically, [id number], [facility] #[id number], 168, cm, 06/14/20 10:38:00... Start Date: 07/04/20 [...] capsule, Refills 1, Route to Pharmacy Electronically, [facility] #[id number], 167.64, cm, 03/20/21 8:49:00 EDT, Height, 63.64, [...] FOR SLEEP, # 90 tablet, 1 Refills, [facility] #[id number], 167.64, cm, 03/20/21 8:49:00 EDT, Height, 63.64, [...] 2019. 2Repeat EGD in 07/2020 for surveillance 00906; repeat 2019 4R shoulder 2018 5Dr. Jimbo (ENT surgeons) Social History Social History Type Response Smoking Status Current every day herve tonye entered on: 12/17/15 Sex
--- OUTSIDE RECORDS SUMMARY | 2022-12-14 11:01 | XMS_ITS | Continuity of Care Document ---
Author Name Unknown Organization [facility] Address [address] [place] [address]- Care Team Providers Care Building Rental Superintendent Name Role Phone Daniela BROWN, Casey Jiménez Primary Care Physician [phone] [facility](s): 09/13/20 - 10/13/20 [facility] [address] [place] [place], [place] [address] Attending Physician: Ana Del Angel Admitting Physician: AdmtrAna Referring Physician: Admtr, Ar8 Allergies, Adverse Reactions, Alerts Substance Reaction Severity Status amoxicillin unknown Active Bee Stings Bee Active Augmentin swelling of throat, diff breath, [...] well. [facility] #[id number] 2Location History: [place] 3Result Comment: [05/06/2017] [facility]:0230-5628-48 Medications aspirin 81 mg oral delayed release [...] capsule, 3 Refills, Maintenance, 08/07/19 11:39:00 EDT, [facility] #[id number], 1 capsule By Mouth 3 times a [...] Formula TID DX Pancreatitis Weight Loss 3 [place] 1 Vanilla, 08/28/20 7:45:00 EDT, Compound Start [...] 04/22/20 13:38:00 EST, Route to Pharmacy Electronically, [facility] #[id number], Partial fill upon patient request, 168, cm, 04/22/20 12:49:00 EST,... Start Date: 04/22/20 Status: Ordered isosorbide mononitrate 30 mg oral tablet, extended release See Instructions, 1/2 tablet By Mouth Daily in AM 30 days, # 15 tablet, Refills 3, Tot. Refills 3, Maintenance, 10/07/20 15:26:00 EDT, Instructions Replace Required Details, Route to Pharmacy Electronically, [facility] #[id number], Partial fill u... Start Date: 10/07/20 Status: Ordered multivitamin Multiple Vitamins oral tablet 1 tablet, By Mouth, Daily, # 30 tablet, 5 Refills, Maintenance, 04/22/20 13:08:00 EST, Tablet, [facility] #[id number], 1 tablet By Mouth Daily,x30 days, 168, cm, 04/22/20 12:49:00 EST, Height, 63.5, kg, 08/07/19 9:46:00 EDT, Dry Weight Start Date: 04/22/20 Stop Date: 10/19/20 Status: Ordered omeprazole 40 mg oral enteric coated capsule 1 capsule = 40 mg, By Mouth, Daily, # 30 capsule, 10 Refills, Maintenance, 04/22/20 13:08:00 EST, EC Capsule, [facility] #[id number], 168, cm, 04/22/20 12:49:00 EST, Height, 63.5, [...] mL, 0 Refills, Maintenance, 08/26/20 16:28:00 EDT, [facility] #[id number], Partial fill upon patient request if the prescription is for a schedule II opioid drug., 1 glass ever... Start Date: 08/26/20 Status: Ordered ProAir HFA 90 mcg/inh inhalation aerosol with adapter 2, puffs, Inhalation, Every 6 hours, PRN, # 8.5 Gm, Refills 5, Tot. Refills 5, Maintenance, 07/04/20 8:18:00 EST, Aerosol, Route to Pharmacy Electronically, [id number], [facility] #65796, 168, cm, 06/14/20 10:38:00... Start Date: 07/04/20 Status: Ordered tamsulosin 0.4 mg oral capsule 0.4 mg, 1, capsule, By Mouth, Daily, PER BELL HODGES, # 90 capsule, Refills 1, Tot. Refills 1, Maintenance, 04/29/20 16:06:00 EST, Route to Pharmacy Electronically, [facility] #[id number],Partial fill upon patient request, 168, cm, ... Start Date: 04/29/20 Status: Ordered traZODone 150 mg oral tablet 1 tablet, By Mouth, Daily at bedtime, PRN NEEDED FOR SLEEP, # 30 tablet, 5 Refills, Maintenance,04/22/20 13:08:00 EST, [facility] #[id number], 168, cm, 04/22/20 12:49:00 EST, Height, 63.5, [...] 2018. 2Repeat EGD in 07/2020 for surveillance 40561; repeat 2019 4R shoulder 2017 5DrShabnam Choi (ENT surgeons) Social History Social History Type Response Smoking Status Current every day herve toney entered on: 12/17/15 Sex
--- OUTSIDE RECORDS SUMMARY | 2022-12-14 11:01 | XMS_ITS | Continuity of Care Document ---
Author Name Unknown Organization [facility] Curtis kiel Address [address] [place] [address]- Care Team Providers Care Event Mgr Name Role Phone Casey Suarez MD Primary Care Physician [facility] Date[facility]): 11/[facility]/20 - 12/21/20 [facility] [address] [place] [address]- Attending Physician: Ana Del Angel Admitting Physician: [...] Refuses 1Result Comment: Pt tolerated well. [facility] #[id number] 2Location History: [facility] 3Result Comment: [05/06/2017] [facility]:[id number] Medications amiodarone 200 mg oral tablet 200 mg, 1, tablet, By Mouth, 2 times a day, # 60 tablet, Refills 0, Tot. Refills 0, Maintenance, 11/13/20 9:34:00 EDT, Route to Pharmacy Electronically, [facility], Partial fill upon patient request if the prescription is for a schedule... Start Date: 11/13/20 Status: Ordered aspirin 81 mg oral delayed release tablet 81 mg, 1, tablet, By Mouth, Daily, Future refills to come from cardiology or PCP, # 30 tablet, Refills 0, Tot. Refills 0, Maintenance, 12/13/20 9:32:00 EDT, Route to Pharmacy Electronically, [facility] #[id number], Partial fill upon patient reque... Start Date: 12/13/20 Stop Date: 01/12/21 Status: Ordered atorvastatin 80 mg oral tablet 1 tablet = 80 mg, By Mouth, Daily at bedtime, # 90 tablet, 4 Refills, Maintenance, 02/07/21 10:28:00 EDT, Tablet, [facility] #[id number], Partial fill upon patient request if the prescription isfor a schedule II opioid drug., 167.64, cm, ... Start Date: 02/07/21 Stop Date: 05/03/22 Status: Ordered atorvastatin 80 mg oral tablet 1 tablet = 80 mg, By Mouth, Daily at bedtime, for 30 days, # 30 tablet, 1 Refills, Hard Stop 02/07/21 10:28:00 EDT, 12/09/20 10:28:00 EDT, Tablet, [facility] #[id number], Partial fill upon patient request if the prescription is for a schedule II... Start Date: 12/09/20 Stop Date: 02/07/21 Status: Ordered clopidogrel 75 mg oral tablet 75 mg, 1, tablet, By Mouth, Daily, # 30 tablet, Refills 11, Tot. Refills 11, Maintenance, 12/09/20 17:12:00 EDT, Route to Pharmacy Electronically, [facility] #[id number], Partial fill upon patient request if the prescription is for a schedule II... Start Date: 12/09/20 Status: Ordered docusate sodium 100 mg oral tablet = 100 mg, By Mouth, 2 times a day, # 6 tablet, 0 Refills, Maintenance, 11/13/20 9:34:00 EDT, Tablet, [facility], Partial fill upon patient [...] 9:32:00 EDT, Route to Pharmacy Electronically, [facility], Partial fill upon patient request, 167.64, cm, 11/13/20 6:08:00 EDT, H... Start Date: 11/13/20 Stop Date: 06/11/21 Status: Ordered metoprolol 50 mg oral tablet 50 mg, 1, tablet, By Mouth, 2 times a day, Future refills to come from cardiology or PCP, # 60 capsule, Refills 0, Tot. Refills 0, Maintenance, 12/13/20 9:33:00 EDT, Route to Pharmacy Electronically,[facility] #[id number], Metoprolol tartrate ta... Start Date: 12/13/20 Stop Date: 01/12/21 Status: Ordered multivitamin Multiple Vitamins oral tablet 1 tablet, By Mouth, Daily, # 30 tablet, 0 Refills, Maintenance, 12/09/20 17:12:00 EDT, Tablet, [facility] #[id number], 1 tablet By Mouth Daily, 167.64, cm, 11/22/20 15:34:00 EDT, Height, 63.64, kg, 10/30/20 11:22:00 EDT, Dry Weight Start Date: 12/09/20 Stop Date: 06/07/21 Status: Ordered Nutritional Supplements See Instructions, # 90 each, Refills 11, Tot. Refills 11, Maintenance, High Protein Ensure Use TID DX Pancreatitis, Weight Loss ICD 10 K85.90 R63.4 3 [place] 3 Vanilla Height 5'6 Weight 130lbs, 12/20/20 7:33:00 EDT, Supply Start Date: 12/20/20 Status: Ordered omeprazole 40 mg oral enteric coated capsule 1 capsule = 40 mg, By Mouth, Daily, # 30 capsule, 10 Refills, Maintenance, 04/22/20 13:08:00 EST, EC Capsule, [facility] #[id number], 168, cm, 04/22/20 12:49:00 EST, Height, 63.5, [...] mL, 0 Refills, Maintenance, 08/26/20 16:28:00 EDT, [facility] #[id number], Partial fill upon patient request if the prescription is for a schedule II opioid drug., 1 glass ever... Start Date: 08/26/20 Status: Ordered ProAir HFA 90 mcg/inh inhalation aerosol with adapter 2, puffs, Inhalation, Every 6 hours, PRN, # 8.5 Gm, Refills 5, Tot. Refills 5, Maintenance, 07/04/20 8:18:00 EST, Aerosol, Route to Pharmacy Electronically, [id number], [facility] #[id number], 168, cm, 06/14/20 10:38:00... Start Date: 07/04/20 Status: Ordered tamsulosin 0.4 mg oral capsule 0.4 mg, 1, capsule, By Mouth, Daily, PER BELL HODGES, # 90 capsule, Refills 1, Tot. Refills 1, Maintenance, 10/16/20 8:15:00 EDT, Route to Pharmacy Electronically, [facility] #[id number], Partial fill upon patient request, 168, cm, 10/16/20... Start Date: 10/16/20 Status: Ordered traZODone 150 mg oral tablet 1 tablet, By Mouth, Daily at bedtime, PRN NEEDED FOR SLEEP, # 90 tablet, 1 Refills, Maintenance,10/16/20 8:15:00 EDT, [facility] #[id number], 168, cm, 10/16/20 7:49:00 EDT, Height, 60, [...] 2019. 2Repeat EGD in 07/2020 for surveillance 12876; repeat 2019 4R shoulder 2018 5Dr. Jimbo (ENT surgeons) Social History Social History Type Response Smoking Status Current every day herve toney entered on: 12/17/15 Sex
--- OUTSIDE RECORDS SUMMARY | 2022-12-14 11:01 | XMS_ITS | Continuity of Care Document ---
Author Name Unknown Organization [facility] Address Unknown Care Team Providers Care Application Coordinator Name Role Phone Casey Suarez MD Primary Care Physician [phone] [facility]counter [facility] [place](s): 07/28/21 - 08/04/21 [facility] Encounter Diagnosis Nodule of buttock(Discharge Diagnosis) - 07/28/21 Attending Physician: Devin Burleson Referring Physician: Casey Suarez MD Allergies, Adverse [...] en Parent Or Guardian Refuses 1Result Comment: [facility]# [address] [phone] 2Result Comment: Pt tolerated well. [facility] #[id number] 3Location History: [facility] 4Result Comment: [05/06/2017] [facility]:[id number] Medications aspirin 81 mg oral delayed release tablet 1 tablet, By Mouth, Daily, # 90 tablet, 0 Refills, [facility] #[id number], 167.64, cm, 04/21/21 13:13:00 EST, Height, 63.64, kg, 10/30/20 11:22:00 EDT, Dry Weight Start Date: 07/11/21 Status: Ordered atorvastatin 80 mg oral tablet 1 tablet = 80 mg, By Mouth, Daily at bedtime, # 90 tablet, 3 Refills, Maintenance, 02/12/21 10:54:00 EDT, Tablet, [facility] #[id number], 167.64, cm, 01/13/21 9:46:00 EDT, Height, 63.64, kg, 10/30/20 11:22:00 EDT, Dry Weight Start Date: 02/12/21 Stop Date: 02/07/22 Status: Ordered clopidogrel 75 mg oral tablet 75 mg, 1, tablet, By Mouth, Daily, # 30 tablet, Refills 11, Tot. Refills 11, Maintenance, 12/09/20 17:12:00 EDT, Route to Pharmacy Electronically, [facility] #[id number], Partial fill upon patient request if the prescription is for a schedule II... Start Date: 12/09/20 Status: Ordered EpiPen 2-Sameer 0.3 mg injectable kit = 0.3 mg, Intramuscular, Once, Must go to hospital if used, # 1 each, 1 Refills, Soft Stop, 01/09/21 14:45:00 EDT, [facility] #[id number], 167.64, cm, 01/09/21 14:27:00 EDT, Height, 63.64, [...] 01/13/21 9:59:00 EDT, Route to Pharmacy Electronically, [facility] #[id number], Partial fill upon patient request if the prescription is for a schedule II opi... Start Date: 01/13/21 Status: Ordered multivitamin Multiple Vitamins oral tablet 1 tablet, By Mouth, Daily, # 90 tablet, 1 Refills, [facility] #[id number], 90, TAKE 1 TABLET BY MOUTH DAILY, 167.64, cm, 04/21/21 13:13:00 EST, Height, 63.64, kg, 10/30/20 11:22:00 EDT, Dry Weight Start Date: 07/10/21 Status: Ordered Nutritional Supplements See Instructions, # 90 each, Refills 11, Tot. Refills 11, Maintenance, High Protein Ensure Use TID DX Pancreatitis, Weight Loss ICD 10 K85.90 R63.4 3 [place] 3 Vanilla Height 5'6 Weight 130lbs, 12/20/20 7:33:00 EDT, Supply Start Date: 12/20/20 Status: Ordered omeprazole 40 mg oral enteric coated capsule 1 capsule = 40 mg, By Mouth, Daily, # 30 capsule, 2 Refills, Maintenance, 01/14/21 14:05:00 EDT, ECCapsule, [facility] #63113, 167.64, cm, 01/13/21 9:46:00 EDT, Height, 63.64, kg, 10/30/2110:22:00 EDT, Dry Weight Start Date: 01/14/21 Stop Date: 04/14/21 Status: Ordered PEG-3350 with Electrolytes (Eqv-GoLYTELY) oral powder for reconstitution See Instructions, 1 glass every 15-30 minutes until finished, # 4,000 mL, 0 Refills, Maintenance, 08/26/20 16:28:00 EDT, [facility] #99217, Partial fill upon patient request if the prescription is for a schedule II opioid drug., 1 glass ever... Start Date: 08/26/20 Status: Ordered ProAir HFA 90 mcg/inh inhalation aerosol with adapter 2, puffs, Inhalation, Every 6 hours, PRN, # 8.5 Gm, Refills 5, Tot. Refills 5, Maintenance, 07/04/20 8:18:00 EST, Aerosol, Route to Pharmacy Electronically, [id number], [facility] #59049, 168, cm, 06/14/20 10:38:00... Start Date: 07/04/20 [...] capsule, Refills 1, Route to Pharmacy Electronically, [facility] #65656, 167.64, cm, 03/20/21 8:49:00 EDT, Height, 63.64, [...] FOR SLEEP, # 90 tablet, 1 Refills, [facility] #[id number], 167.64, cm, 03/20/21 8:49:00 EDT, Height, 63.64, [...] 2018. 2Repeat EGD in 07/2020 for surveillance 24884; repeat 2019 4R shoulder 2018 5Dr. Jimbo (ENT surgeons) Diagnosis Diagnosis Type Effective Dates Health Status Cl inical Service Informant Nodule of buttock Discharge Diagnosis 07/28/21 Social History Social History Type Response Smoking Status Current every day herve toney entered on: 12/17/15 Sex
--- OUTSIDE RECORDS SUMMARY | 2022-12-14 11:01 | XMS_ITS | Continuity of Care Document ---
Author Name Unknown Organization [facility] Address [address] [place] [address]- Care Team Providers Care Radiology Asst Name Role Phone Casey Suarez MD Primary Care Physician [phone] [facility]counter [facility] Date[facility]s): 07/04/19 - 07/14/19 [facility] [address] [place] [address]- [facility] Attending Physician: Ana Del Angel Admitting Physician: Admtr, Mark8 Referring Physician: Admtr, Ar8 Allergies, Adverse Reactions, [...] Refuses 1Result Comment: Pt tolerated well. [facility] #[id number] 2Location History: [facility] 3Result Comment: [05/06/2017] [facility]:7017-2044-30 Medications albuterol 0.083% inhalation solution 3 mL = 2.5 mg, Inhalation, Every 6 hours, # 120 each, 2 Refills, Maintenance, 07/18/18 13:46:17 EST, Solution Start Date: 07/18/18 Status: Ordered aspirin 325 mg oral tablet 325 mg, 1, tablet, By Mouth, Daily, # 90 tablet, Refills 1, Tot. Refills 1, Maintenance, 05/19/19 9:23:00 EST, Route to Pharmacy Electronically, [facility] #[id number], 168, cm, 05/19/19 8:56:00EST, Height, 57.4, kg, [...] 05/04/19 14:51:08 EST, Route to Pharmacy Electronically, [id number], [facility] #[id number], 168, cm, 05/02/19 8:32:30... Start Date: 05/04/19 Stop Date: 09/01/19 Status: Ordered gabapentin 300 mg oral capsule See Instructions, TAKE 1 CAPSULE BY MOUTH THREE TIMES DAILY, # 90 capsule, Refills 1, Tot. Refills 1, Soft Stop, 04/06/19 11:37:38 EST, Instructions Replace Required Details, Route to Pharmacy Electronically, [id number], [facility]. Start Date: 04/06/19 Status: Ordered lisinopril 10 mg oral tablet See Instructions, TAKE 1 TABLET BY MOUTH EVERY DAY, # 30 tablet, Refills 2, Tot. Refills 2, Soft Stop, 05/22/19 16:32:00 EST, Instructions Replace Required Details, Route to Pharmacy Electronically, [facility] #[id number], 168, cm, 05/19/19 8:56:... Start Date: 05/22/19 [...] TAKE 1 TABLET BY MOUTH TWICE DAILY, [facility] #[id number] Start Date: 02/27/19 Status: Ordered oxyCODONE 5 [...] 11:41:14 EST, Aerosol, Route to Pharmacy Electronically, [id number], [facility]/pharmacy #[id number] Start Date: 07/22/18 Status: [...] 30 tablet, 5 Refills, Maintenance,06/27/19 16:32:00 EST, [facility] #85240, 168, cm, 05/19/19 8:56:00 EST, Height, 57.4, kg, 04/04/19 7:51:00 EST, Dry Weight Start Date: 06/27/19 Status: Ordered Vicodin 5/500 Tablet By Mouth, [...] 2019. 2Repeat EGD in 07/2020 for surveillance 08407; repeat 2019 4R shoulder 2017 5DrShabnam Choi (ENT surgeons) Social History Social History Type Response Smoking Status Current every day herve toney entered on: 12/17/15 Sex
--- OUTSIDE RECORDS SUMMARY | 2022-12-14 11:01 | XMS_ITS | Continuity of Care Document ---
Author Name Unknown Organization [facility] [place] Address [address] [place] [address]- Care Team Providers Care Composition Roofer Name Role Phone Casey Suarez MD Primary Care Physician [facility] 12/10/20 - 01/09/21 [facility] [address] [place] [address]- Allergies, Adverse Reactions, Alerts Substance Reaction Severity [...] tolerated well. [facility] #[id number] 2Location History: [place] 3Result Comment: [05/06/2017] [facility]:9151-5899-16 Medications amiodarone 200 mg oral tablet 200 mg, 1, tablet, By Mouth, 2 times a day, # 60 tablet, Refills 0, Tot. Refills 0, Maintenance, 11/13/20 9:34:00 EDT, Route to Pharmacy Electronically, [facility], Partial fill upon patient request if the prescription is for a schedule... Start Date: 11/13/20 Status: Ordered aspirin 81 mg oral delayed release tablet 81 mg, 1, tablet, By Mouth, Daily, # 90 tablet, Refills 1, Tot. Refills 1, Maintenance, 01/09/21 14:52:00 EDT, Route to Pharmacy Electronically, [facility] #[id number], Partial fill upon patientrequest if the prescription is for a schedule II op... Start Date: 01/09/21 Status: Ordered atorvastatin 80 mg oral tablet 1 tablet = 80 mg, By Mouth, Daily at bedtime, # 90 tablet, 4 Refills, Maintenance, 01/09/21 14:44:00 EDT, Tablet, [facility] #[id number], Partial fill upon patient request if the prescription isfor a schedule II opioid drug., 167.64, cm, ... Start Date: 01/09/21 Stop Date: 04/04/22 Status: Ordered clopidogrel 75 mg oral tablet 75 mg, 1, tablet, By Mouth, Daily, # 30 tablet, Refills 11, Tot. Refills 11, Maintenance, 12/09/20 17:12:00 EDT, Route to Pharmacy Electronically, [facility] #[id number], Partial fill upon patient request if the prescription is for a schedule II... Start Date: 12/09/20 Status: Ordered EpiPen 2-Sameer 0.3 mg injectable kit = 0.3 mg, Intramuscular, Once, Must go to hospital if used, # 1 each, 1 Refills, Soft Stop, 01/09/21 14:45:00 EDT, [facility] #03741, 167.64, cm, 01/09/21 14:27:00 EDT, Height, 63.64, [...] 1 Refills, Maintenance, 01/09/21 14:44:00 EDT, Tablet, [facility] #49923, 1 tablet By Mouth Daily, 167.64, cm, 01/09/21 14:27:00 EDT, Height, 63.64, kg, 10/30/20 11:22:00 EDT, Dry Weight Start Date: 01/09/21 Status: Ordered Nutritional Supplements See Instructions, # 90 each, Refills 11, Tot. Refills 11, Maintenance, High Protein Ensure Use TID DX Pancreatitis, Weight Loss ICD 10 K85.90 R63.4 3 [place] 3 Vanilla Height 5'6 Weight 130lbs, 12/20/20 7:33:00 EDT, Supply Start Date: 12/20/20 Status: Ordered omeprazole 40 mg oral enteric coated capsule 1 capsule = 40 mg, By Mouth, Daily, # 30 capsule, 10 Refills, Maintenance, 04/22/20 13:08:00 EST, EC Capsule, [facility] #50858, 168, cm, 04/22/20 12:49:00 EST, Height, 63.5, [...] mL, 0 Refills, Maintenance, 08/26/20 16:28:00 EDT, [facility] #68161, Partial fill upon patient request if the prescription is for a schedule II opioid drug., 1 glass ever... Start Date: 08/26/20 Status: Ordered ProAir HFA 90 mcg/inh inhalation aerosol with adapter 2, puffs, Inhalation, Every 6 hours, PRN, # 8.5 Gm, Refills 5, Tot. Refills 5, Maintenance, 07/04/20 8:18:00 EST, Aerosol, Route to Pharmacy Electronically, [id number], [facility] #[id number], 168, cm, 06/14/20 10:38:00... Start Date: 07/04/20 [...] 10/16/20 8:15:00 EDT, Route to Pharmacy Electronically, [facility] #[id number], Partial fill upon patient request, 168, cm, [...] 90 tablet, 1 Refills, Maintenance,10/16/20 8:15:00 EDT, [facility] #[id number], 168, cm, 10/16/20 7:49:00 EDT, Height, 60, [...] 2019. 2Repeat EGD in 07/2020 for surveillance 01950; repeat 2019 4R shoulder 2018 5DrShabnam Choi (ENT surgeons) Social History Social History Type Response Smoking Status Current every day herve toney entered on: 12/17/15 Sex
--- OUTSIDE RECORDS SUMMARY | 2022-12-14 11:01 | XMS_ITS | Continuity of Care Document ---
Author Name Unknown Organization [facility] Address [address] [place] [address]- Care Team Providers Care Mechanic Foreman Name Role Phone Casey Suarez MD Primary Care Physician [facility] 07[facility]18/20 - 08/17/20 [facility] [address] [place] [address]- Allergies, Adverse Reactions, Alerts Substance Reaction Severity [...] Guardian Refuses 1Result Comment: Pt tolerated well. [facility] #[id number] 2Location History: [facility] 3Result Comment: [05/06/2017] [facility]:[id number] Medications albuterol 0.083% inhalation solution 3 mL = 2.5 mg, Inhalation, Every 6 hours, # 120 each, 2 Refills, Maintenance, 04/30/20 11:23:00 EST, Solution, [facility] #36476, 168, cm, 04/30/20 11:04:00 EST, Height, 63.5, kg, 08/07/19 9:46:00 EDT, Dry Weight Start Date: 04/30/20 Status: Ordered Creon 36,000 units oral delayed release capsule 1 capsule, By Mouth, 3 times a day, with each meal, # 90 capsule, 3 Refills, Maintenance, 08/07/19 11:39:00 EDT, [facility] #[id number], 1 capsule By Mouth 3 times a day,Instr:with each meal, 168, cm, 08/07/19 9:46:00 EDT, Height, 63.5, kg, 08/06... Start Date: 08/07/19 Status: Ordered ENSURE/VANILLA ENSURE/VANILLA, See Instructions, # 6 pack/packet, Refills 11, Tot. Refills 11, Maintenance, EnsureMax Protein Formula TID DX Pancreatitis Weight Loss 3 [place] 1 Vanilla, 06/25/20 9:20:00 EST, Compound Start [...] 04/22/20 13:38:00 EST, Route to Pharmacy Electronically, [facility] #[id number], Partial fill upon patient request, 168, cm, [...] 5 Refills, Maintenance, 04/22/20 13:08:00 EST, Tablet, [facility] #31973, 1 tablet By Mouth Daily,x30 days, 168, cm, 04/22/20 12:49:00 EST, Height, 63.5, kg, 08/07/19 9:46:00 EDT, Dry Weight Start Date: 04/22/20 Stop Date: 10/19/20 Status: Ordered Nutritional Supplements See Instructions, # 6 each, Refills 11, Tot. Refills 11, Maintenance, Max Protein Ensure 3 [place] 3 Vanilla use TID DX Pancreatitis Weight loss ICD 10 K85.9 R63.4 Weight: 137LBS Height: 5'6, 07/30/20 14:51:00 EST, Supply, 168, cm, 06/14... Start Date: 07/30/20 Status: Ordered omeprazole 40 mg oral enteric coated capsule 1 capsule = 40 mg, By Mouth, Daily, # 30 capsule, 10 Refills, Maintenance, 04/22/20 13:08:00 EST, EC Capsule, [facility] #29889, 168, cm, 04/22/20 12:49:00 EST, Height, 63.5, [...] 8:18:00 EST, Aerosol, Route to Pharmacy Electronically, [id number], [facility] #[id number], 168, cm, 06/14/20 10:38:00... Start Date: 07/04/20 Status: Ordered tamsulosin 0.4 mg oral capsule 0.4 mg, 1, capsule, By Mouth, Daily, PER BELL HODGES, # 90 capsule, Refills 1, Tot. Refills 1, Maintenance, 04/29/20 16:06:00 EST, Route to Pharmacy Electronically, [facility] #[id number],Partial fill upon patient request, 168, cm, ... Start Date: 04/29/20 Status: Ordered tiZANidine 4 mg oral capsule 2 capsule = 8 mg, By Mouth, 3 times a day, 0 Refills, Maintenance, 10/13/19 10:32:00 EDT Start Date: 10/13/19 Status: Ordered traZODone 150 mg oral tablet 1 tablet, By Mouth, Daily at bedtime, PRN NEEDED FOR SLEEP, # 30 tablet, 5 Refills, Maintenance,04/22/20 13:08:00 EST, [id number], 168, cm, 04/22/20 12:49:00 EST, Height, 63.5, [...] 2018. 2Repeat EGD in 07/2020 for surveillance 86687; repeat 2019 4R shoulder 2018 5DrShabnam Choi (ENT surgeons) Social History Social History Type Response Smoking Status Current every day herve toney entered on: 12/17/15 Sex
--- OUTSIDE RECORDS SUMMARY | 2022-12-14 11:01 | XMS_ITS | Continuity of Care Document ---
Author Name Unknown Organization [facility] Address [address] [place] [address]- Care Team Providers Care Director [place] [place] Name Role Phone Casey Suarez MD Primary Care Physician [phone] [facility]): 07[facility]25[facility]19 - 08/04/19 [facility] [address] [place] [address]- [facility] Attending Physician: AdmAna aguiar Admitting Physician: Admtr, Ar8 Referring Physician: [...] Refuses 1Result Comment: Pt tolerated well. [facility] #[id number] 2Location History: [place] 3Result Comment: [05/06/2017] [facility]:1658-6188-02 Medications albuterol 0.083% inhalation solution 3 mL [...] 05/04/19 14:51:08 EST, Route to Pharmacy Electronically, [id number], [facility] #[id number], 168, cm, 05/02/19 8:32:30... Start Date: 05/04/19 Stop Date: 09/01/19 Status: Ordered lisinopril 10 mg oral tablet See Instructions, TAKE 1 TABLET BY MOUTH EVERY DAY, # 30 tablet, Refills 2, Tot. Refills 2, Soft Stop, 05/22/19 16:32:00 EST, Instructions Replace Required Details, Route to Pharmacy Electronically, [facility] #[id number], 168, cm, 05/19/19 8:56:... Start Date: 05/22/19 [...] 16:26:00 EST, Aerosol, Route to Pharmacy Electronically, [id number], [facility] #02212, 168, cm, 07/24/19 9:01:00... Start Date: 07/24/19 Status: Ordered tamsulosin 0.4 mg oral capsule 0.4 mg, 1, capsule, By Mouth, Daily, Refills 0, Maintenance, 07/25/19 10:23:00 EST Start Date: 07/25/19 Status: Ordered traZODone 150 mg oral tablet 1 tablet, By Mouth, Daily at bedtime, PRN NEEDED FOR SLEEP, # 30 tablet, 5 Refills, Maintenance,06/27/19 16:32:00 EST, [facility] #10161, 168, cm, 05/19/19 8:56:00 EST, Height, 57.4, [...] 2019. 2Repeat EGD in 07/2020 for surveillance 00322; repeat 2019 4R shoulder 2018 5DrShabnam Choi (ENT surgeons) Social History Social History Type Response Smoking Status Current every day herve toney entered on: 12/17/15 Sex
--- OUTSIDE RECORDS SUMMARY | 2022-12-14 11:01 | XMS_ITS | Continuity of Care Document ---
Author Name Unknown Organization [facility] [place], operated [facility] [place] Address [address] [place] [address]- Care Team Providers Care Warehouse Helper Name Role Phone Casey Suarez MD Primary Care Physician [facility] Date(s): 04/13/19 - 05/17/19 [facility] [place] Adult [address] [place] [address]- [facility] Attending Physician: Not on Staff, Attending [...] Refuses 1Location History: [place] 2Result Comment: [05/06/2017] [facility]:[id number] Medications albuterol 0.083% inhalation solution 3 mL = 2.5 mg, Inhalation, Every 6 hours, # 120 each, 2 Refills, Maintenance, 07/18/18 13:46:17 EST, Solution Start Date: 07/18/18 Status: Ordered aspirin 325 mg oral tablet 325 mg, 1, tablet, By Mouth, Every 4 hours, Refills 0, Maintenance, 05/02/19 8:49:54 EST Start Date: 05/02/19 Status: Ordered DX: Pancreatitis and Weight Loss [...] 05/04/19 14:51:08 EST, Route to Pharmacy Electronically, [id number], [facility] #[id number], 168, cm, 05/02/19 8:32:30... Start Date: 05/04/19 Stop Date: 09/01/19 Status: Ordered gabapentin 300 mg oral capsule See Instructions, TAKE 1 CAPSULE BY MOUTH THREE TIMES DAILY, # 90 capsule, Refills 1, Tot. Refills 1, Soft Stop, 04/06/19 11:37:38 EST, Instructions Replace Required Details, Route to Pharmacy Electronically, [id number], [facility]... Start Date: 04/06/19 Status: Ordered lisinopril 10 mg oral tablet See Instructions, # 30 tablet, Refills 2 Tot. Refills 2, TAKE 1 TABLET BY MOUTH EVERY DAY, [facility] #[id number] Start Date: 02/14/19 Status: Ordered meloxicam 7.5 [...] TAKE 1 TABLET BY MOUTH TWICE DAILY, [facility] #[id number] Start Date: 02/27/19 Status: Ordered oxyCODONE 5 [...] 11:41:14 EST, Aerosol, Route to Pharmacy Electronically, [id number], [facility]/pharmacy #[id number] Start Date: 07/22/18 Status: Ordered [...] EVERY NIGHT AT BEDTIME NEEDED FOR SLEEP, [facility] #[id number] Start Date: 12/23/18 Status: Ordered Vicodin 5/500 Tablet By Mouth, Every 6 hours, 0 Refills, Maintenance, 04/20/19 14:26:28 EST, Partial fill upon patient request Start Date: 04/20/19 Status: Ordered Problem List Condition Effective Dates Status Health Status Inform ant ETOH abuse(Confirmed) Active Atherosclerosis(Confirmed) 1 Active Deep [...] 2018. 2Repeat EGD in 07/2020 for surveillance 59802; repeat 2019 4R shoulder 2017 5DrShabnam Choi (ENT surgeons) Social History Social History Type Response Smoking Status Current every day herve toney entered on: 12/17/15 Sex
--- OUTSIDE RECORDS SUMMARY | 2022-12-14 11:01 | XMS_ITS | Continuity of Care Document ---
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 [facility] #[id number] 2Location History: [facility] 3Result Comment: [05/06/2017] [facility]:[id number] Medications amiodarone 200 mg oral tablet 200 mg, 1, tablet, By Mouth, 2 times a day, # 60 tablet, Refills 0, Tot. Refills 0, Maintenance, 11/13/20 9:34:00 EDT, Route to Pharmacy Electronically, [facility], Partial fill upon patient request if the prescription is for a schedule... Start Date: 11/13/20 Status: Ordered aspirin 81 mg oral delayed release tablet 81 mg, By Mouth, Daily, # 30 tablet, Refills 0, Tot. Refills 0, Maintenance, 11/13/20 9:32:00 EDT, Route to Pharmacy Electronically, [facility], Partial fill upon patient request if theprescription is for a schedule II opioid drug., 167... Start Date: 11/13/20 Stop Date: 12/13/20 Status: Ordered atorvastatin 80 mg oral tablet 1 tablet = 80 mg, By Mouth, Daily at bedtime, # 30 tablet, 0 Refills, Maintenance, 11/13/20 9:34:00EDT, Tablet, [facility], Partial fill upon patient request if the prescription is fora schedule II opioid drug., 167.64, cm, 11/13/20 6:... Start Date: 11/13/20 Status: Ordered Bactrim DS 800 mg-160 mg oral tablet 1 tablet, By Mouth, 2 times a day, for 7 days, # 14 tablet, 0 Refills, Acute 12/02/20 18:20:00 EDT,11/25/20 18:20:00 EDT, Tablet, [facility] #[id number], Partial fill upon patient request if the prescription is for a schedule II opioid drug., 1... Start Date: 11/25/20 Stop Date: 12/02/20 Status: Ordered clopidogrel 75 mg oral tablet 75 mg, 1, tablet, By Mouth, Daily, # 30 tablet, Refills 0, Tot. Refills 0, Maintenance, 11/13/20 9:34:00 EDT, Route to Pharmacy Electronically, [facility], Partial fill upon patient request if the prescription is for a schedule II opioid... Start Date: 11/13/20 Status: Ordered docusate sodium 100 mg oral tablet = 100 mg, By Mouth, 2 times a day, # 6 tablet, 0 Refills, Maintenance, 11/13/20 9:34:00 EDT, Tablet, [facility], Partial fill upon patient [...] Acute12/02/20 15:58:00 EDT, 11/22/20 15:58:00 EDT, Tablet, [facility] #[id number], Partial fill upon patient request if the [...] 11/13/20 9:32:00 EDT, Route to Pharmacy Electronically, [facility], Partial fill upon patient request, 167.64, cm, 11/13/20 6:08:00 EDT, H... Start Date: 11/13/20 Stop Date: 06/11/21 Status: Ordered metoprolol 50 mg oral tablet 50 mg, 1, tablet, By Mouth, 2 times a day, # 60 tablet, Refills 0, Tot. Refills 0, Maintenance, 11/13/20 9:33:00 EDT, Route to Pharmacy Electronically, [facility], Partial fill upon patient request if the prescription is for a schedule I... Start Date: 11/13/20 Stop Date: 12/13/20 Status: Ordered MorPHINE Inj 4 mg, Injection, IV Push Slowly, Once, STAT, 11/25/20 13:33:00 EDT, Stop date 11/25/20 13:33:00 EDT Start Date: 11/25/20 Stop Date: 11/25/20 Status: Completed multivitamin Multiple Vitamins oral tablet 1 tablet, By Mouth, Daily, # 30 tablet, 5 Refills, Maintenance, 04/22/20 13:08:00 EST, Tablet, [facility] #[id number], 1 tablet By Mouth Daily,x30 days, 168, cm, 04/22/20 12:49:00 EST, Height, 63.5, kg, 08/07/19 9:46:00 EDT, Dry Weight Start Date: 04/22/20 Stop Date: 10/19/20 Status: Ordered Nicoderm C-Q Clear 14 mg/24 hr transdermal film, extended release 1 patch, Topically, Daily, for 14 days, # 14 patch, 0 Refills, Acute 11/27/20 9:35:00 EDT, :35:00 EDT, Patch, [facility], Partial fill upon patient request if the prescriptionis for a schedule II opioid drug., 167.64, cm, 10/29... Start Date: 11/13/20 Stop Date: 11/27/20 Status: Ordered Nutritional Supplements See Instructions, # 6 each, Refills 11, Tot. Refills 11, Maintenance, High Protein Ensure Use TID DX Pancreatitis, Weight Loss ICD 10 K85.90 R63.4 3 [place] 3 Vanilla Height 5'6 Weight 130lbs, 11/25/20 10:55:00 EDT, Supply Start Date: 11/25/20 Status: Ordered omeprazole 40 mg oral enteric coated capsule 1 capsule = 40 mg, By Mouth, Daily, # 30 capsule, 10 Refills, Maintenance, 04/22/20 13:08:00 EST, EC Capsule, [facility] #[id number], 168, cm, 04/22/20 12:49:00 EST, Height, 63.5, kg, 08/07/19 9:46:00 EDT, Dry Weight Start Date: 04/22/20 Stop Date: 03/18/21 Status: Ordered PEG-3350 with Electrolytes (Eqv-GoLYTELY) oral powder for reconstitution See Instructions, 1 glass every 15-30 minutes until finished, # 4,000 mL, 0 Refills, Maintenance, 08/26/20 16:28:00 EDT, [facility] #[id number], Partial fill upon patient request if the prescription is for a schedule II opioid drug., 1 glass ever... Start Date: 08/26/20 Status: Ordered ProAir HFA 90 mcg/inh inhalation aerosol with adapter 2, puffs, Inhalation, Every 6 hours, PRN, # 8.5 Gm, Refills 5, Tot. Refills 5, Maintenance, 07/04/20 8:18:00 EST, Aerosol, Route to Pharmacy Electronically, [id number], [facility] #[id number], 168, cm, 06/14/20 10:38:00... Start Date: 07/04/20 Status: Ordered tamsulosin 0.4 mg oral capsule 0.4 mg, 1, capsule, By Mouth, Daily, PER BELL HODGES, # 90 capsule, Refills 1, Tot. Refills 1, Maintenance, 10/16/20 8:15:00 EDT, Route to Pharmacy Electronically, [facility] #[id number], Partial fill upon patient request, 168, cm, 10/16/20... Start Date: 10/16/20 Status: Ordered traZODone 150 mg oral tablet 1 tablet, By Mouth, Daily at bedtime, PRN NEEDED FOR SLEEP, # 90 tablet, 1 Refills, Maintenance,10/16/20 8:15:00 EDT, [facility] #[id number], 168, cm, 10/16/20 7:49:00 EDT, Height, 60, kg, 10/16/20 7:49:00 EDT, Dry Weight Start Date: 10/16/20 Stop Date: 04/14/21 Status: Ordered Tylenol 325 mg oral tablet 975 mg, 3, tablet, By Mouth, 2 times a day, for 14 days, # 84 tablet, Refills 0, Tot. Refills 0, Acute 11/27/20 9:33:00 EDT, 11/13/20 9:33:00 EDT, Route to Pharmacy Electronically, [facility], Partial fill upon patient [...] 2019. 2Repeat EGD in 07/2020 for surveillance 75271; repeat 2019 4R shoulder 2018 5Dr. Jimbo (ENT surgeons) Vital Signs Most recent to oldest [Reference Range]: 1 2 3 Oxygen Saturation [94-100 %] 100 % (11/25/20 1:42 PM) 100 % (11/25/20 10:03 AM) 100 % (11/25/20 9:42 AM) Pulse Rate [55-90 bpm] 70 bpm (11/25/20 1:42 PM) 64 bpm (11/25/20 10:03 AM) 62 bpm (11/25/20 9:42 AM) Blood Pressure [90-138/55-84 mm Hg] 116/67mm Hg (11/25/20 1:42 PM) 118/62mm Hg (11/25/20 10:03 AM) 118/64mm Hg (11/25/20 9:42 AM) Respiratory Rate [16-30 br/min] 19 br/min (11/25/20 1:42 PM) 18 br/min (11/25/20 1:39 PM) 20 br/min (11/25/20 10:03 AM) Temperature [96.8-100.4 DegF] 98.0 DegF (11/25/20 10:03 AM) 98.4 DegF (11/25/20 9:42 AM) Mode of Delivery (Oxygen) Room air (11/25/20 1:42 PM) Room air (11/25/20 10:03 AM) Blood pressure sites Arm, left (11/25/20 1:42 PM) Arm, left (11/25/20 10:03 AM) Temperature Route Oral (11/25/20 10:03 AM) Oral (11/25/20 9:42 AM) Social History Social History Type Response Smoking Status Current every day herve toney entered on: 12/17/15 Sex
--- OUTSIDE RECORDS SUMMARY | 2022-12-14 11:01 | XMS_ITS | Continuity of Care Document ---
Author Name Unknown Organization [facility] [place] lt Address [address] [place] [address]- Care Team Providers Care Exhibitions Curator Name Role Phone Daniela BROWN, Casey Jiménez Primary Care Physician [facility] Date[facility]s): 06/13/21 - 07/13/21 [facility] [address] [place] [address]- Allergies, Adverse Reactions, Alerts Substance Reaction Severity [...] [facility]# [address] [id number] 2Result Comment: Pt tolerated well. [facility] #[id number] 3Location History: [facility] 4Result Comment: [05/06/2017] [facility]:[id number] Medications aspirin 81 mg oral delayed release tablet 1 tablet, By Mouth, Daily, # 90 tablet, 0 Refills, [facility] #[id number], 167.64, cm, 04/21/21 13:13:00 EST, Height, 63.64, kg, 10/30/20 11:22:00 EDT, Dry Weight Start Date: 07/11/21 Status: Ordered atorvastatin 80 mg oral tablet 1 tablet = 80 mg, By Mouth, Daily at bedtime, # 90 tablet, 3 Refills, Maintenance, 02/12/21 10:54:00 EDT, Tablet, [facility] #[id number], 167.64, cm, 01/13/21 9:46:00 EDT, Height, 63.64, kg, 10/30/20 11:22:00 EDT, Dry Weight Start Date: 02/12/21 Stop Date: 02/07/22 Status: Ordered clopidogrel 75 mg oral tablet 75 mg, 1, tablet, By Mouth, Daily, # 30 tablet, Refills 11, Tot. Refills 11, Maintenance, 12/09/20 17:12:00 EDT, Route to Pharmacy Electronically, [facility] #[id number], Partial fill upon patient request if the prescription is for a schedule II... Start Date: 12/09/20 Status: Ordered EpiPen 2-Sameer 0.3 mg injectable kit = 0.3 mg, Intramuscular, Once, Must go to hospital if used, # 1 each, 1 Refills, Soft Stop, 01/09/21 14:45:00 EDT, [facility] #[id number], 167.64, cm, 01/09/21 14:27:00 EDT, Height, 63.64, [...] 01/13/21 9:59:00 EDT, Route to Pharmacy Electronically, [facility] #[id number], Partial fill upon patient request if the prescription is for a schedule II opi... Start Date: 01/13/21 Status: Ordered multivitamin Multiple Vitamins oral tablet 1 tablet, By Mouth, Daily, # 90 tablet, 1 Refills, [facility] #[id number], 90, TAKE 1 TABLET BY MOUTH DAILY, 167.64, cm, 04/21/21 13:13:00 EST, Height, 63.64, kg, 10/30/20 11:22:00 EDT, Dry Weight Start Date: 07/10/21 Status: Ordered Nutritional Supplements See Instructions, # 90 each, Refills 11, Tot. Refills 11, Maintenance, High Protein Ensure Use TID DX Pancreatitis, Weight Loss ICD 10 K85.90 R63.4 3 [place] 3 Vanilla Height 5'6 Weight 130lbs, 12/20/20 7:33:00 EDT, Supply Start Date: 12/20/20 Status: Ordered omeprazole 40 mg oral enteric coated capsule 1 capsule = 40 mg, By Mouth, Daily, # 30 capsule, 2 Refills, Maintenance, 01/14/21 14:05:00 EDT, ECCapsule, [facility] #60700, 167.64, cm, 01/13/21 9:46:00 EDT, Height, 63.64, kg, 10/30/2110:22:00 EDT, Dry Weight Start Date: 01/14/21 Stop Date: 04/14/21 Status: Ordered PEG-3350 with Electrolytes (Eqv-GoLYTELY) oral powder for reconstitution See Instructions, 1 glass every 15-30 minutes until finished, # 4,000 mL, 0 Refills, Maintenance, 08/26/20 16:28:00 EDT, [facility] #[id number], Partial fill upon patient request if the prescription is for a schedule II opioid drug., 1 glass ever... Start Date: 08/26/20 Status: Ordered ProAir HFA 90 mcg/inh inhalation aerosol with adapter 2, puffs, Inhalation, Every 6 hours, PRN, # 8.5 Gm, Refills 5, Tot. Refills 5, Maintenance, 07/04/20 8:18:00 EST, Aerosol, Route to Pharmacy Electronically, [id number], [facility] #[id number], 168, cm, 06/14/20 10:38:00... Start Date: 07/04/20 [...] capsule, Refills 1, Route to Pharmacy Electronically, [facility] #40555, 167.64, cm, 03/20/21 8:49:00 EDT, Height, 63.64, [...] FOR SLEEP, # 90 tablet, 1 Refills, [facility] #58749, 167.64, cm, 03/20/21 8:49:00 EDT, Height, 63.64, [...] 2019. 2Repeat EGD in 07/2020 for surveillance 27209; repeat 2019 4R shoulder 2018 5Dr. Jimbo (ENT surgeons) Social History Social History Type Response Smoking Status Current every day herve toney entered on: 12/17/15 Sex
--- OUTSIDE RECORDS SUMMARY | 2022-12-14 11:02 | XMS_ITS | Continuity of Care Document ---
Author Name Unknown Organization [facility] Address [address] [place] [address]- Care Team Providers Care Blood Bank Assistant Name Role Phone Casey Suarez MD Primary Care Physician [phone] [facility]counter [facility] Date(s): 10/07/20 - 11/06/20 [facility] [address] [place] [address] Attending Physician: AdmAna aguiar Admitting Physician: Admtr, [...] Refuses 1Result Comment: Pt tolerated well. [facility] #[id number] 2Location History: [place] 3Result Comment: [05/06/2017] [facility]:[id number] Medications aspirin 81 mg oral delayed release tablet 81 mg, 1, tablet, By Mouth, Daily at bedtime, Refills 0, Maintenance, 10/07/20 14:42:00 EDT, Partial fill upon patient request if [...] Formula TID DX Pancreatitis Weight Loss 3 [place] 1 Vanilla, 08/28/20 7:45:00 EDT, Compound Start [...] 04/22/20 13:38:00 EST, Route to Pharmacy Electronically, [facility] #[id number], Partial fill upon patient request, 168, cm, 04/22/20 12:49:00 EST,... Start Date: 04/22/20 Status: Ordered isosorbide mononitrate 30 mg oral tablet, extended release See Instructions, 1/2 tablet By Mouth Daily in AM 30 days, # 15 tablet, Refills 3, Tot. Refills 3, Maintenance, 10/07/20 15:26:00 EDT, Instructions Replace Required Details, Route to Pharmacy Electronically, [facility] #[id number], Partial fill u... Start Date: 10/07/20 Status: Ordered metoprolol 50 mg oral tablet, extended release 50 mg, 1, tablet, By Mouth, Daily, # 30 tablet, Refills 3, Tot. Refills 3, Maintenance, 10/16/20 13:19:00 EDT, Route to Pharmacy Electronically, [facility] #[id number], Partial fill upon patientrequest if the prescription is for a schedule II op... Start Date: 10/16/20 Stop Date: 02/13/21 Status: Ordered multivitamin Multiple Vitamins oral tablet 1 tablet, By Mouth, Daily, # 30 tablet, 5 Refills, Maintenance, 04/22/20 13:08:00 EST, Tablet, [facility] #[id number], 1 tablet By Mouth Daily,x30 days, 168, cm, 04/22/20 12:49:00 EST, Height, 63.5, kg, 08/07/19 9:46:00 EDT, Dry Weight Start Date: 04/22/20 Stop Date: 10/19/20 Status: Ordered omeprazole 40 mg oral enteric coated capsule 1 capsule = 40 mg, By Mouth, Daily, # 30 capsule, 10 Refills, Maintenance, 04/22/20 13:08:00 EST, EC Capsule, [facility] #83644, 168, cm, 04/22/20 12:49:00 EST, Height, 63.5, kg, 08/07/19 9:46:00 EDT, Dry Weight Start Date: 04/22/20 Stop Date: 03/18/21 Status: Ordered PEG-3350 with Electrolytes (Eqv-GoLYTELY) oral powder for reconstitution See Instructions, 1 glass every 15-30 minutes until finished, # 4,000 mL, 0 Refills, Maintenance, 08/26/20 16:28:00 EDT, [facility] #37843, Partial fill upon patient request if the prescription is for a schedule II opioid drug., 1 glass ever... Start Date: 08/26/20 Status: Ordered ProAir HFA 90 mcg/inh inhalation aerosol with adapter 2, puffs, Inhalation, Every 6 hours, PRN, # 8.5 Gm, Refills 5, Tot. Refills 5, Maintenance, 07/04/20 8:18:00 EST, Aerosol, Route to Pharmacy Electronically, [id number], [facility] #[id number], 168, cm, 06/14/20 10:38:00... Start Date: 07/04/20 Status: Ordered tamsulosin 0.4 mg oral capsule 0.4 mg, 1, capsule, By Mouth, Daily, PER BELL ELSA WARP DOFFER-C, # 90 capsule, Refills 1, Tot. Refills 1, Maintenance, 10/16/20 8:15:00 EDT, Route to Pharmacy Electronically, [facility] #[id number], Partial fill upon patient request, 168, cm, 10/16/20... Start Date: 10/16/20 Status: Ordered traZODone 150 mg oral tablet 1 tablet, By Mouth, Daily at bedtime, PRN NEEDED FOR SLEEP, # 90 tablet, 1 Refills, Maintenance,10/16/20 8:15:00 EDT, [facility] #88333, 168, cm, 10/16/20 7:49:00 EDT, Height, 60, [...] 2019. 2Repeat EGD in 07/2020 for surveillance 36913; repeat 2019 4R shoulder 2018 5Dr. Jimbo (ENT surgeons) Social History Social History Type Response Smoking Status Current every day herve toney entered on: 12/17/15 Sex
--- OUTSIDE RECORDS SUMMARY | 2022-12-14 11:02 | XMS_ITS | Continuity of Care Document ---
Author Name Unknown Organization [facility] Address [address] [address]- Care Team Providers Care Electric Engine Mechanic Name Role Phone Casey Suraez MD Primary Care Physician [facility]): [facility]22 - 09/19/22 [facility] [address] [place] [id number] Attending Physician: AdmAna aguiar Admitting Physician: [...] en Parent Or Guardian Refuses 1Result Comment: [facility]# [id number] 2Result Comment: [facility]# [address] [phone] 3Result Comment: Pt tolerated well. [facility] #[id number] 4Location History: [place] 5Result Comment: [05/06/2017] [facility]:1027-4021-96 Medications aspirin 81 mg oral delayed release tablet 1 tablet, By Mouth, Daily, # 90 tablet, 3 Refills, Maintenance, 06/09/22 10:43:00 EST, [facility] #[id number], 167.6, cm, 06/09/22 10:24:00 EST, Height, 63.6, kg, 09/22/21 9:54:00 EDT, Dry Weight Start Date: 06/09/22 Status: Ordered atorvastatin 80 mg oral tablet 1 tablet, By Mouth, Daily at bedtime, # 90 tablet, 0 Refills, Maintenance, 09/02/22 8:23:00 EDT, [facility] #[id number], 167.6, cm, 06/16/22 7:22:00 EST, Height, 63.6, kg, 09/22/21 9:54:00 EDT, Dry Weight Start Date: 09/02/22 Status: Ordered EpiPen 2-Sameer 0.3 mg injectable kit = 0.3 mg, Intramuscular, Once, Must go to hospital if used, # 1 each, 1 Refills, Soft Stop, 01/09/21 14:45:00 EDT, [facility] #[id number], 167.64, cm, 01/09/21 14:27:00 EDT, Height, 63.64, kg, 10/30/20 11:22:00 EDT, Dry Weight Start Date: 01/09/21 Status: Ordered gabapentin 300 mg oral capsule 2, capsule, By Mouth, 2 times a day, # 120 capsule, Refills 1, Maintenance, 09/09/22 15:15:00 EDT, Route to Pharmacy Electronically, [facility] #[id number], 167.6, cm, 06/16/22 7:22:00 EST, Height, 63.6, [...] tablet, 3 Refills, Maintenance, 06/09/22 10:44:00 EST, [facility] #12845, 90, 1 tablet By Mouth Daily, 167.6, cm, 06/09/22 10:24:00 EST, Height, 63.6, kg, 09/22/21 9:54:00 EDT, Dry Weight Start Date: 06/09/22 Status: Ordered Nutritional Supplements See Instructions, # 90 each, Refills 11, Tot. Refills 11, Maintenance, High Protein Ensure Use TID DX Pancreatitis, Weight Loss ICD 10 K85.90 R63.4 3 [place] 3 Vanilla Height 5'6 Weight 130lbs, 12/20/20 7:33:00 EDT, Supply Start Date: 12/20/20 Status: Ordered omeprazole 40 mg oral enteric coated capsule 1 capsule, By Mouth, Daily, # 30 capsule, 2 Refills, Maintenance, 09/01/22 10:42:00 EDT, [facility] #28570, 167.6, cm, 06/16/22 7:22:00 EST, Height, 63.6, kg, 09/22/21 9:54:00 EDT, Dry Weight Start Date: 09/01/22 Status: Ordered PEG-3350 with Electrolytes (Eqv-GoLYTELY) oral powder for reconstitution See Instructions, 1 glass every 15-30 minutes until finished, # 4,000 mL, 0 Refills, Maintenance, 08/26/20 16:28:00 EDT, [facility] #46775, Partial fill upon patient request if the prescription is for a schedule II opioid drug., 1 glass ever... Start Date: 08/26/20 Status: Ordered ProAir HFA 90 mcg/inh inhalation aerosol with adapter 2, puffs, Inhalation, Every 6 hours, PRN, # 8.5 Gm, Refills 5, Tot. Refills 5, Maintenance, 07/04/20 8:18:00 EST, Aerosol, Route to Pharmacy Electronically, [id number], [facility] #43893, 168, cm, 06/14/20 10:38:00... Start Date: 07/04/20 [...] 04/07/22 13:27:00 EST, Route to Pharmacy Electronically, [facility] #09629, 167.6, cm, 03/19/22 9:24:00 EDT, Height, 63.6,kg, [...] 90 tablet, 1 Refills, Maintenance,09/02/22 10:55:00 EDT, [facility] #[id number], 167.6, cm, 06/16/22 7:22:00 EST, Height, 63.6, [...] 2018. 2Repeat EGD in 07/2020 for surveillance 37518; repeat 2019 4R shoulder [address] 5Dr. Jimbo (ENT surgeons) Social History Social History Type Response Smoking Status 10 or more cigarette s (1/2 pack or more)/day in last 30 days entered on: 03/13/22 Sex Patient Care team information Care Team Personnel Name: April Landrum RN Position: [facility] RN Member Role: Primary Care Nurse Name: Talib Jensen RN Position: [facility] RN Member Role: Primary Care Nurse Name: Casey Suarez MD Position: [facility] Primary Care Physician Member Role: PCP Address: Address: [address] [place] [id number] Name: Frida Urban RN Position: [facility] RN Member Role: Primary Care Nurse Name: Betty Rodriguez RN Position: [facility] RN Member Role: Primary Care Nurse Name: Damon Elaine RN Position: [facility] SN RN Member Role: Primary Care Nurse Name: Neelima Manrique RN Position: [facility] RN Member Role: Primary Care Nurse Name: Maddison Lindquist RN Position: [facility] SN RN Member Role: Primary Care Nurse Name: Mahesh Castillo RN Position: [facility] RN Member Role: Primary Care Nurse Name: Desiree Caballero RN Position: [facility] Transfer Man Member Role: Primary Care Nurse Name: Melvina Palacios RN Position: [facility] RN Member Role: Primary Care Nurse Name: Diandra Méndez RN Position: [facility] RN Member Role: Primary Care Nurse Care Team Related Persons Name: LAYLA NARAYANAN Address: [address] [address]
--- OUTSIDE RECORDS SUMMARY | 2022-12-14 11:02 | XMS_ITS | Continuity of Care Document ---
Author Name Unknown Organization [facility] Address [address] [place] [address]- Care Team Providers Care Feed Research Aide Name Role Phone Daniela BROWN, Casey Jiménez Primary Care Physician [facility] 06[facility]/22 - 07/18/22 [facility] [place] Adult [address] [place] [address]- Allergies, Adverse Reactions, Alerts Substance Reaction Severity [...] en Parent Or Guardian Refuses 1Result Comment: [facility]# [id number] 2Result Comment: [facility]# [address] [phone] 3Result Comment: Pt tolerated well. [facility] #[id number] 4Location History: [facility] 5Result Comment: [05/06/2017] [facility]:4645-9348-69 Medications aspirin 81 mg oral delayed release tablet 1 tablet, By Mouth, Daily, # 90 tablet, 3 Refills, Maintenance, 06/09/22 10:43:00 EST, [facility] #36389, 167.6, cm, 06/09/22 10:24:00 EST, Height, 63.6, kg, 09/22/21 9:54:00 EDT, Dry Weight Start Date: 06/09/22 Status: Ordered atorvastatin 80 mg oral tablet 1 tablet, By Mouth, Daily at bedtime, # 90 tablet, 1 Refills, Maintenance, 03/06/22 12:15:00 EDT, [facility] #81172, 167.6, cm, 01/08/22 8:27:00 EDT, Height, 63.6, kg, 09/22/21 9:54:00 EDT,Dry Weight Start Date: 03/06/22 Status: Ordered EpiPen 2-Sameer 0.3 mg injectable kit = 0.3 mg, Intramuscular, Once, Must go to hospital if used, # 1 each, 1 Refills, Soft Stop, 01/09/21 14:45:00 EDT, [facility] #05118, 167.64, cm, 01/09/21 14:27:00 EDT, Height, 63.64, kg, 10/30/20 11:22:00 EDT, Dry Weight Start Date: 01/09/21 Status: Ordered gabapentin 300 mg oral capsule 2, capsule, By Mouth, 2 times a day, # 120 capsule, Refills 1, Tot. Refills 1, Maintenance, 07/06/22 9:45:00 EST, Route to Pharmacy Electronically, [facility] #[id number], 167.6, cm, 06/16/22 7:22:00 EST, Height, 63.6, [...] tablet, 3 Refills, Maintenance, 06/09/22 10:44:00 EST, [facility] #88188, 90, 1 tablet By Mouth Daily, 167.6, cm, 06/09/22 10:24:00 EST, Height, 63.6, kg, 09/22/21 9:54:00 EDT, Dry Weight Start Date: 06/09/22 Status: Ordered Nutritional Supplements See Instructions, # 90 each, Refills 11, Tot. Refills 11, Maintenance, High Protein Ensure Use TID DX Pancreatitis, Weight Loss ICD 10 K85.90 R63.4 3 [place] 3 Vanilla Height 5'6 Weight 130lbs, 12/20/20 7:33:00 EDT, Supply Start Date: 12/20/20 Status: Ordered omeprazole 40 mg oral enteric coated capsule 1 capsule, By Mouth, Daily, # 30 capsule, 2 Refills, Maintenance, 05/29/22 17:58:00 EST, [facility] #45085, 167.6, cm, 03/19/22 9:24:00 EDT, Height, 63.6, kg, 09/22/21 9:54:00 EDT, Dry Weight Start Date: 05/29/22 Status: Ordered PEG-3350 with Electrolytes (Eqv-GoLYTELY) oral powder for reconstitution See Instructions, 1 glass every 15-30 minutes until finished, # 4,000 mL, 0 Refills, Maintenance, 08/26/20 16:28:00 EDT, [facility] #52351, Partial fill upon patient request if the prescription is for a schedule II opioid drug., 1 glass ever... Start Date: 08/26/20 Status: Ordered ProAir HFA 90 mcg/inh inhalation aerosol with adapter 2, puffs, Inhalation, Every 6 hours, PRN, # 8.5 Gm, Refills 5, Tot. Refills 5, Maintenance, 07/04/20 8:18:00 EST, Aerosol, Route to Pharmacy Electronically, [id number], [facility] #77258, 168, cm, 06/14/20 10:38:00... Start Date: 07/04/20 [...] 04/07/22 13:27:00 EST, Route to Pharmacy Electronically, [facility] #[id number], 167.6, cm, 03/19/22 9:24:00 EDT, Height, 63.6,kg, [...] 90 tablet, 0 Refills, Maintenance,07/07/22 14:49:00 EST, [facility] #25169, 167.6, cm, 06/16/22 7:22:00 EST, Height, 63.6, [...] 2019. 2Repeat EGD in 07/2020 for surveillance 38949; repeat 2019 4R shoulder 2018 5Dr. Jimbo (ENT surgeons) Social History Social History Type Response Smoking Status 10 or more cigarette s (1/2 pack or more)/day in last 30 days entered on: 03/13/22 Sex Patient Care team information Care Team Personnel Name: April Landrum RN Position: [facility] RN Member Role: Primary Care Nurse Name: Talib Jensen RN Position: [facility] RN Member Role: Primary Care Nurse Name: Casey Suarez MD Position: [facility] Primary Care Physician Member Role: PCP Address: Address: [address] [place] [id number] Name: Frida Urban RN Position: [facility] RN Member Role: Primary Care Nurse Name: Betty Rodriguez RN Position: [facility] RN Member Role: Primary Care Nurse Name: Damon Elaine RN Position: [facility] SN RN Member Role: Primary Care Nurse Name: Neelima Manrique RN Position: [facility] RN Member Role: Primary Care Nurse Name: Maddison Lindquist RN Position: [facility] SN RN Member Role: Primary Care Nurse Name: Mahesh Castillo RN Position: [facility] RN Member Role: Primary Care Nurse Name: Desiree Caballero RN Position: [facility] Admissions Clerk Member Role: Primary Care Nurse Name: Melvina Palacios RN Position: [facility] RN Member Role: Primary Care Nurse Name: Diandra Méndez RN Position: [facility] RN Member Role: Primary Care Nurse Care Team Related Persons Name: LAYLA NARAYANAN Address: home [address] [place] [id number]
--- OUTSIDE RECORDS SUMMARY | 2022-12-14 11:02 | XMS_ITS | Continuity of Care Document ---
Author Name Unknown Organization [facility] Address [address] [place] [address]- Care Team Providers Care Block Sawyer Name Role Phone Daniela BROWN, Casey Jiménez Primary Care Physician [phone] En[place] [facility] [place]s): 05/30/19 - 07/08/19 [facility] [address] [place] [address]- [facility] Attending Physician: Chava Bauer MD Admitting Physician: [...] Pt tolerated well. [facility] #[id number] 2Location History: [place] 3Result Comment: [05/06/2017] [facility]:6692-8832-36 Medications albuterol 0.083% inhalation solution 3 mL = 2.5 mg, Inhalation, Every 6 hours, # 120 each, 2 Refills, Maintenance, 07/18/18 13:46:17 EST, Solution Start Date: 07/18/18 Status: Ordered aspirin 325 mg oral tablet 325 mg, 1, tablet, By Mouth, Daily, # 90 tablet, Refills 1, Tot. Refills 1, Maintenance, 05/19/19 9:23:00 EST, Route to Pharmacy Electronically, [facility] #47321, 168, cm, 05/19/19 8:56:00EST, Height, 57.4, kg, [...] 05/04/19 14:51:08 EST, Route to Pharmacy Electronically, [id number], [facility] #99859, 168, cm, 05/02/19 8:32:30... Start Date: 05/04/19 Stop Date: 09/01/19 Status: Ordered gabapentin 300 mg oral capsule See Instructions, TAKE 1 CAPSULE BY MOUTH THREE TIMES DAILY, # 90 capsule, Refills 1, Tot. Refills 1, Soft Stop, 04/06/19 11:37:38 EST, Instructions Replace Required Details, Route to Pharmacy Electronically, [id number], [facility] Start Date: 04/06/19 Status: Ordered lisinopril 10 mg oral tablet See Instructions, TAKE 1 TABLET BY MOUTH EVERY DAY, # 30 tablet, Refills 2, Tot. Refills 2, Soft Stop, 05/22/19 16:32:00 EST, Instructions Replace Required Details, Route to Pharmacy Electronically, [facility] #[id number], 168, cm, 05/19/19 8:56:... Start Date: 05/22/19 [...] TAKE 1 TABLET BY MOUTH TWICE DAILY, [facility] #[id number] Start Date: 02/27/19 Status: Ordered oxyCODONE 5 [...] 11:41:14 EST, Aerosol, Route to Pharmacy Electronically, [id number], [facility]/pharmacy #1026 Start Date: 07/22/18 Status: [...] 30 tablet, 5 Refills, Maintenance,06/27/19 16:32:00 EST, [facility] #40403, 168, cm, 05/19/19 8:56:00 EST, Height, 57.4, [...] 2019. 2Repeat EGD in 07/2020 for surveillance 99208; repeat 2019 4R shoulder 2018 5Dr. Jimbo (ENT surgeons) Social History Social History Type Response Smoking Status Current every day herve toney entered on: 12/17/15 Sex
--- OUTSIDE RECORDS SUMMARY | 2022-12-14 11:02 | XMS_ITS | Continuity of Care Document ---
Author Name Unknown Organization [facility] Address [address] [place] [address]- Care Team Providers Care Structural Ironworker Name Role Phone Casey Suarez MD Primary Care Physician [facility]s): 05/19/19 - 05/26/19 [facility] Adult [address] [place] [address]- [facility] Attending Physician: Josey OSORIO, Tyra Willis Allergies, [...] Guardian Refuses 1Result Comment: Pt tolerated well. [facility] #[id number] 2Location History: [place] 3Result Comment: [05/06/2017] [facility]:2922-5787-84 Medications albuterol 0.083% inhalation solution 3 mL = 2.5 mg, Inhalation, Every 6 hours, # 120 each, 2 Refills, Maintenance, 07/18/18 13:46:17 EST, Solution Start Date: 07/18/18 Status: Ordered aspirin 325 mg oral tablet 325 mg, 1, tablet, By Mouth, Daily, # 90 tablet, Refills 1, Tot. Refills 1, Maintenance, 05/19/19 9:23:00 EST, Route to Pharmacy Electronically, [facility] #46302, 168, cm, 05/19/19 8:56:00EST, Height, 57.4, kg, [...] 05/04/19 14:51:08 EST, Route to Pharmacy Electronically, [id number], [facility] #55898, 168, cm, 05/02/19 8:32:30... Start Date: 05/04/19 Stop Date: 09/01/19 Status: Ordered gabapentin 300 mg oral capsule See Instructions, TAKE 1 CAPSULE BY MOUTH THREE TIMES DAILY, # 90 capsule, Refills 1, Tot. Refills 1, Soft Stop, 04/06/19 11:37:38 EST, Instructions Replace Required Details, Route to Pharmacy Electronically, [id number], [facility] Start Date: 04/06/19 Status: Ordered lisinopril 10 mg oral tablet See Instructions, TAKE 1 TABLET BY MOUTH EVERY DAY, # 30 tablet, Refills 2, Tot. Refills 2, Soft Stop, 05/22/19 16:32:00 EST, Instructions Replace Required Details, Route to Pharmacy Electronically, [facility] #30122, 168, cm, 05/19/19 8:56:... Start Date: 05/22/19 [...] TAKE 1 TABLET BY MOUTH TWICE DAILY, [facility] #32855 Start Date: 02/27/19 Status: Ordered oxyCODONE 5 [...] 11:41:14 EST, Aerosol, Route to Pharmacy Electronically, [id number], [facility]/pharmacy #1026 Start Date: 07/22/18 Status: Ordered [...] EVERY NIGHT AT BEDTIME NEEDED FOR SLEEP, [facility] #64936 Start Date: 12/23/18 Status: Ordered Vicodin 5/500 [...] 2019. 2Repeat EGD in 07/2020 for surveillance 92443; repeat 2019 4R shoulder 2018 5DrShabnam Choi (ENT surgeons) Vital Signs Most recent to oldest [Reference Range]: 1 Height 168 cm (05/19/19 8:56 AM) Weight 58.7 kg (05/19/19 8:56 AM) Oxygen Saturation [94-100 %] 98 % (05/19/19 8:56 AM) Pulse Rate [55-90 bpm] 65 bpm (05/19/19 8:56 AM) Body Mass Index [18.5-24.99] 20.8 (05/19/19 8:56 AM) Blood Pressure [90-138/55-84 mm Hg] 110/ 62mm Hg (05/19/19 8:56 AM) Blood pressure sites Arm, left (05/19/19 8:56 AM) Social History Social History Type Response Smoking Status Current every day herve toney entered on: 12/17/15 Sex
--- OUTSIDE RECORDS SUMMARY | 2022-12-14 11:02 | XMS_ITS | Continuity of Care Document ---
Author Name Unknown Organization [facility] Address [address] [place] [address]- Care Team Providers Care Auctioneer Art Name Role Phone Casey uSarez MD Primary Care Physician [facility] 02[facility]13[facility]20 - 03/14/20 [facility] Adult [address] [place] [address]- [facility] Allergies, Adverse Reactions, Alerts Substance Reaction Severity [...] Pt tolerated well. [facility] #[id number] 2Location History: [facility] 3Result Comment: [05/06/2017] [facility]:1150-5683-55 Medications albuterol 0.083% inhalation solution 3 mL [...] capsule, 3 Refills, Maintenance, 08/07/19 11:39:00 EDT, [facility] #75962, 1 capsule By Mouth 3 times a day,Instr:with each meal, 168, cm, 08/07/19 9:46:00 EDT, Height, 63.5, kg, 08/06... Start Date: 08/07/19 Status: Ordered Crestor 40 mg oral tablet 1 tablet = 40 mg, By Mouth, Daily, # 90 tablet, 3 Refills, Maintenance, 12/28/19 11:53:00 EDT, Tablet, [facility] #59437, 168, cm, 10/13/19 10:19:00 EDT, Height, 63.5, [...] 11/24/19 11:21:00 EDT, Route to Pharmacy Electronically, [facility] #06830, 168, cm, 10/13/19 10:19:00 EDT,... Start Date: 11/24/19 Stop Date: 05/22/20 Status: Ordered folic acid 1 mg oral tablet 1 mg, 1, tablet, By Mouth, Daily, TK 1 T PO QD, # 30 tablet, Refills 5, Tot. Refills 5, Maintenance, 05/22/20 11:21:00 EST, Route to Pharmacy Electronically, [facility] #76801, 168, cm, 10/13/19 10:19:00 EDT, Height, 63.5, kg, 08/07/19 9:46:... Start Date: 05/22/20 Stop Date: 11/18/20 Status: Ordered lisinopril 10 mg oral tablet See Instructions, TAKE 1 TABLET BY MOUTH EVERY DAY, # 30 tablet, Refills 2, Tot. Refills 2, Soft Stop, 02/13/20 14:40:00 EDT, Instructions Replace Required Details, Route to Pharmacy Electronically, [facility] #23335, 168, cm, 10/13/19 10:19... Start Date: 02/13/20 Status: Ordered multivitamin Multiple Vitamins oral tablet 1 tablet, By Mouth, Daily, # 30 tablet, 5 Refills, Maintenance, 11/27/19 12:09:00 EDT, Tablet, [facility] #54694, 1 tablet By Mouth Daily,x30 days, 168, cm, 10/13/19 10:19:00 EDT, Height, 63.5, kg, 08/07/19 9:46:00 EDT, Dry Weight Start Date: 11/27/19 Stop Date: 05/25/20 Status: Ordered omeprazole 40 mg oral enteric coated capsule 1 capsule = 40 mg, By Mouth, Daily, # 30 capsule, 10 Refills, Maintenance, 08/14/19 8:52:00 EDT, ECCapsule, [facility] #43971, 168, cm, 08/07/19 9:46:00 EDT, Height, 63.5, [...] 16:26:00 EST, Aerosol, Route to Pharmacy Electronically, [id number], [facility] #36452, 168, cm, 07/24/19 9:01:00... Start Date: 07/24/19 [...] 30 tablet, 5 Refills, Maintenance,12/28/19 11:34:00 EDT, [facility] #46089, 168, cm, 10/13/19 10:19:00 EDT, Height, 63.5, [...] 2019. 2Repeat EGD in 07/2020 for surveillance 93026; repeat 2019 4R shoulder 2018 5DrShabnam Choi (ENT surgeons) Social History Social History Type Response Smoking Status Current every day herve toney entered on: 12/17/15 Sex
--- OUTSIDE RECORDS SUMMARY | 2022-12-14 11:02 | XMS_ITS | Continuity of Care Document ---
Author Name Unknown Organization [facility] [place] Address [address] [place] [address]- Care Team Providers Care Nuclear Physician Name Role Phone Casey Suarez MD Primary Care Physician [facility] Date[facility]): [facility] - 12/14/20 [facility] Adult [address] [place] [address]- Allergies, Adverse Reactions, Alerts Substance Reaction Severity [...] Guardian Refuses 1Result Comment: Pt tolerated well. [facility] #[id number] 2Location History: [place] 3Result Comment: [05/06/2017] [facility]:[id number] Medications amiodarone 200 mg oral tablet 200 mg, 1, tablet, By Mouth, 2 times a day, # 60 tablet, Refills 0, Tot. Refills 0, Maintenance, 11/13/20 9:34:00 EDT, Route to Pharmacy Electronically, [facility], Partial fill upon patient request if the prescription is for a schedule... Start Date: 11/13/20 Status: Ordered aspirin 81 mg oral delayed release tablet 81 mg, 1, tablet, By Mouth, Daily, Future refills to come from cardiology or PCP, # 30 tablet, Refills 0, Tot. Refills 0, Maintenance, 12/13/20 9:32:00 EDT, Route to Pharmacy Electronically, [facility] #[id number], Partial fill upon patient reque... Start Date: 12/13/20 Stop Date: 01/12/21 Status: Ordered atorvastatin 80 mg oral tablet 1 tablet = 80 mg, By Mouth, Daily at bedtime, # 90 tablet, 4 Refills, Maintenance, 02/07/21 10:28:00 EDT, Tablet, [facility] #[id number], Partial fill upon patient request if the prescription isfor a schedule II opioid drug., 167.64, cm, ... Start Date: 02/07/21 Stop Date: 05/03/22 Status: Ordered atorvastatin 80 mg oral tablet 1 tablet = 80 mg, By Mouth, Daily at bedtime, for 30 days, # 30 tablet, 1 Refills, Hard Stop 02/07/21 10:28:00 EDT, 12/09/20 10:28:00 EDT, Tablet, [facility] #[id number], Partial fill upon patient request if the prescription is for a schedule II... Start Date: 12/09/20 Stop Date: 02/07/21 Status: Ordered clopidogrel 75 mg oral tablet 75 mg, 1, tablet, By Mouth, Daily, # 30 tablet, Refills 11, Tot. Refills 11, Maintenance, 12/09/20 17:12:00 EDT, Route to Pharmacy Electronically, [facility] #[id number], Partial fill upon patient request if the prescription is for a schedule II... Start Date: 12/09/20 Status: Ordered docusate sodium 100 mg oral tablet = 100 mg, By Mouth, 2 times a day, # 6 tablet, 0 Refills, Maintenance, 11/13/20 9:34:00 EDT, Tablet, [facility], Partial fill upon patient [...] 11/13/20 9:32:00 EDT, Route to Pharmacy Electronically, [facility], Partial fill upon patient request, 167.64, cm, 11/13/20 6:08:00 EDT, H... Start Date: 11/13/20 Stop Date: 06/11/21 Status: Ordered metoprolol 50 mg oral tablet 50 mg, 1, tablet, By Mouth, 2 times a day, Future refills to come from cardiology or PCP, # 60 capsule, Refills 0, Tot. Refills 0, Maintenance, 12/13/20 9:33:00 EDT, Route to Pharmacy Electronically,[facility] #[id number], Metoprolol tartrate ta... Start Date: 12/13/20 Stop Date: 01/12/21 Status: Ordered multivitamin Multiple Vitamins oral tablet 1 tablet, By Mouth, Daily, # 30 tablet, 0 Refills, Maintenance, 12/09/20 17:12:00 EDT, Tablet, [facility] #69643, 1 tablet By Mouth Daily, 167.64, cm, 11/22/20 15:34:00 EDT, Height, 63.64, kg, 10/30/20 11:22:00 EDT, Dry Weight Start Date: 12/09/20 Stop Date: 06/07/21 Status: Ordered Nutritional Supplements See Instructions, # 90 each, Refills 11, Tot. Refills 11, Maintenance, High Protein Ensure Use TID DX Pancreatitis, Weight Loss ICD 10 K85.90 R63.4 3 [place] 3 Vanilla Height 5'6 Weight 130lbs, 12/10/20 13:52:00 EDT, Supply Start Date: 12/10/20 Status: Ordered omeprazole 40 mg oral enteric coated capsule 1 capsule = 40 mg, By Mouth, Daily, # 30 capsule, 10 Refills, Maintenance, 04/22/20 13:08:00 EST, EC Capsule, [facility] #[id number], 168, cm, 04/22/20 12:49:00 EST, Height, 63.5, [...] mL, 0 Refills, Maintenance, 08/26/20 16:28:00 EDT, [facility] #59035, Partial fill upon patient request if the prescription is for a schedule II opioid drug., 1 glass ever... Start Date: 08/26/20 Status: Ordered ProAir HFA 90 mcg/inh inhalation aerosol with adapter 2, puffs, Inhalation, Every 6 hours, PRN, # 8.5 Gm, Refills 5, Tot. Refills 5, Maintenance, 07/04/20 8:18:00 EST, Aerosol, Route to Pharmacy Electronically, [id number], [facility] #[id number], 168, cm, 06/14/20 10:38:00... Start Date: 07/04/20 Status: Ordered tamsulosin 0.4 mg oral capsule 0.4 mg, 1, capsule, By Mouth, Daily, PER BELL HODGES, # 90 capsule, Refills 1, Tot. Refills 1, Maintenance, 10/16/20 8:15:00 EDT, Route to Pharmacy Electronically, [facility] #[id number], Partial fill upon patient request, 168, cm, 10/16/20... Start Date: 10/16/20 Status: Ordered traZODone 150 mg oral tablet 1 tablet, By Mouth, Daily at bedtime, PRN NEEDED FOR SLEEP, # 90 tablet, 1 Refills, Maintenance,10/16/20 8:15:00 EDT, [facility] #[id number], 168, cm, 10/16/20 7:49:00 EDT, Height, 60, [...] 2018. 2Repeat EGD in 07/2020 for surveillance 97733; repeat 2019 4R shoulder 2018 5Dr. Jimbo (ENT surgeons) Social History Social History Type Response Smoking Status Current every day herve toney entered on: 12/17/15 Sex
--- OUTSIDE RECORDS SUMMARY | 2022-12-14 11:02 | XMS_ITS | Continuity of Care Document ---
Author Name Unknown Organization [facility] Address [address] [place] [address]- Care Team Providers Care Manual Writer Name Role Phone Casey Suarez MD Primary Care Physician [phone] [facility]counter [facility] Date[facility]s): 04/14/21 - 05/14/21 [facility] [address] [place] [address]- [place] Allergies, Adverse Reactions, Alerts Substance Reaction [...] en Parent Or Guardian Refuses 1Result Comment: [facility]# [address] [id number] 2Result Comment: Pt tolerated well. [facility] #[id number] 3Location History: [facility] 4Result Comment: [05/06/2017] [facility]:0415-3021-85 Medications aspirin 81 mg oral delayed release tablet 81 mg, 1, tablet, By Mouth, Daily, # 90 tablet, Refills 1, Tot. Refills 1, Maintenance, 01/09/21 14:52:00 EDT, Route to Pharmacy Electronically, [facility] #[id number], Partial fill upon patientrequest if the prescription is for a schedule II op... Start Date: 01/09/21 Status: Ordered atorvastatin 80 mg oral tablet 1 tablet = 80 mg, By Mouth, Daily at bedtime, # 90 tablet, 3 Refills, Maintenance, 02/12/21 10:54:00 EDT, Tablet, [facility] #[id number], 167.64, cm, 01/13/21 9:46:00 EDT, Height, 63.64, kg, 10/30/20 11:22:00 EDT, Dry Weight Start Date: 02/12/21 Stop Date: 02/07/22 Status: Ordered clopidogrel 75 mg oral tablet 75 mg, 1, tablet, By Mouth, Daily, # 30 tablet, Refills 11, Tot. Refills 11, Maintenance, 12/09/20 17:12:00 EDT, Route to Pharmacy Electronically, [facility] #20995, Partial fill upon patient request if the prescription is for a schedule II... Start Date: 12/09/20 Status: Ordered EpiPen 2-Sameer 0.3 mg injectable kit = 0.3 mg, Intramuscular, Once, Must go to hospital if used, # 1 each, 1 Refills, Soft Stop, 01/09/21 14:45:00 EDT, [facility] #[id number], 167.64, cm, 01/09/21 14:27:00 EDT, Height, 63.64, [...] 01/13/21 9:59:00 EDT, Route to Pharmacy Electronically, [facility] #[id number], Partial fill upon patient request if the prescription is for a schedule II opi... Start Date: 01/13/21 Status: Ordered multivitamin Multiple Vitamins oral tablet 1 tablet, By Mouth, Daily, # 90 tablet, 1 Refills, Maintenance, 01/09/21 14:44:00 EDT, Tablet, [facility] #[id number], 1 tablet By Mouth Daily, 167.64, cm, 01/09/21 14:27:00 EDT, Height, 63.64, kg, 10/30/20 11:22:00 EDT, Dry Weight Start Date: 01/09/21 Status: Ordered Nutritional Supplements See Instructions, # 90 each, Refills 11, Tot. Refills 11, Maintenance, High Protein Ensure Use TID DX Pancreatitis, Weight Loss ICD 10 K85.90 R63.4 3 [place] 3 Vanilla Height 5'6 Weight 130lbs, 12/20/20 7:33:00 EDT, Supply Start Date: 12/20/20 Status: Ordered omeprazole 40 mg oral enteric coated capsule 1 capsule = 40 mg, By Mouth, Daily, # 30 capsule, 2 Refills, Maintenance, 01/14/21 14:05:00 EDT, ECCapsule, [facility] #85542, 167.64, cm, 01/13/21 9:46:00 EDT, Height, 63.64, kg, 10/30/2110:22:00 EDT, Dry Weight Start Date: 01/14/21 Stop Date: 04/14/21 Status: Ordered PEG-3350 with Electrolytes (Eqv-GoLYTELY) oral powder for reconstitution See Instructions, 1 glass every 15-30 minutes until finished, # 4,000 mL, 0 Refills, Maintenance, 08/26/20 16:28:00 EDT, [facility] #[id number], Partial fill upon patient request if the prescription is for a schedule II opioid drug., 1 glass ever... Start Date: 08/26/20 Status: Ordered ProAir HFA 90 mcg/inh inhalation aerosol with adapter 2, puffs, Inhalation, Every 6 hours, PRN, # 8.5 Gm, Refills 5, Tot. Refills 5, Maintenance, 07/04/20 8:18:00 EST, Aerosol, Route to Pharmacy Electronically, [id number], [facility] #98648, 168, cm, 06/14/20 10:38:00... Start Date: 07/04/20 [...] capsule, Refills 1, Route to Pharmacy Electronically, [facility] #29714, 167.64, cm, 03/20/21 8:49:00 EDT, Height, 63.64, [...] FOR SLEEP, # 90 tablet, 1 Refills, [facility] #[id number], 167.64, cm, 03/20/21 8:49:00 EDT, Height, 63.64, [...] 2018. 2Repeat EGD in 07/2020 for surveillance 65332; repeat 2019 4R shoulder [address] 5Dr. Jimbo (ENT surgeons) Social History Social History Type Response Smoking Status Current every day herve toney entered on: 12/17/15 Sex
--- OUTSIDE RECORDS SUMMARY | 2022-12-14 11:02 | XMS_ITS | Continuity of Care Document ---
Author Name Unknown Organization [facility] [place] Address [address] [place] [address]- Care Team Providers Care Box Stacker Name Role Phone Casey Suarez MD Primary Care Physician [phone] [facility]counter [facility] Date[facility]s): 10/21/20 - 11/20/20 [facility] Adult [address] [place] [address]- Allergies, Adverse Reactions, Alerts Substance Reaction Severity [...] Pt tolerated well. [facility] #[id number] 2Location History: [place] 3Result Comment: [05/06/2017] [facility]:3032-5341-85 Medications amiodarone 200 mg oral tablet 200 mg, 1, tablet, By Mouth, 2 times a day, # 60 tablet, Refills 0, Tot. Refills 0, Maintenance, 11/13/20 9:34:00 EDT, Route to Pharmacy Electronically, [facility], Partial fill upon patient request if the prescription is for a schedule... Start Date: 11/13/20 Status: Ordered aspirin 81 mg oral delayed release tablet 81 mg, By Mouth, Daily, # 30 tablet, Refills 0, Tot. Refills 0, Maintenance, 11/13/20 9:32:00 EDT, Route to Pharmacy Electronically, [facility], Partial fill upon patient request if theprescription is for a schedule II opioid drug., 167... Start Date: 11/13/20 Stop Date: 12/13/20 Status: Ordered atorvastatin 80 mg oral tablet 1 tablet = 80 mg, By Mouth, Daily at bedtime, # 30 tablet, 0 Refills, Maintenance, 11/13/20 9:34:00EDT, Tablet, [facility], Partial fill upon patient request if the prescription is fora schedule II opioid drug., 167.64, cm, 11/13/20 6:... Start Date: 11/13/20 Status: Ordered clopidogrel 75 mg oral tablet 75 mg, 1, tablet, By Mouth, Daily, # 30 tablet, Refills 0, Tot. Refills 0, Maintenance, 11/13/20 9:34:00 EDT, Route to Pharmacy Electronically, [facility], Partial fill upon patient request if the prescription is for a schedule II opioid... Start Date: 11/13/20 Status: Ordered docusate sodium 100 mg oral tablet = 100 mg, By Mouth, 2 times a day, # 6 tablet, 0 Refills, Maintenance, 11/13/20 9:34:00 EDT, Tablet, [facility], Partial fill upon patient request if [...] 11/13/20 9:32:00 EDT, Route to Pharmacy Electronically, [facility], Partial fill upon patient request, 167.64, cm, 11/13/20 6:08:00 EDT, H... Start Date: 11/13/20 Stop Date: 06/11/21 Status: Ordered metoprolol 50 mg oral tablet 50 mg, 1, tablet, By Mouth, 2 times a day, # 60 tablet, Refills 0, Tot. Refills 0, Maintenance, 11/13/20 9:33:00 EDT, Route to Pharmacy Electronically, [facility], Partial fill upon patient request if the prescription is for a schedule I... Start Date: 11/13/20 Stop Date: 12/13/20 Status: Ordered multivitamin Multiple Vitamins oral tablet 1 tablet, By Mouth, Daily, # 30 tablet, 5 Refills, Maintenance, 04/22/20 13:08:00 EST, Tablet, [facility] #[id number], 1 tablet By Mouth Daily,x30 days, 168, cm, 04/22/20 12:49:00 EST, Height, 63.5, kg, 08/07/19 9:46:00 EDT, Dry Weight Start Date: 04/22/20 Stop Date: 10/19/20 Status: Ordered Nicoderm C-Q Clear 14 mg/24 hr transdermal film, extended release 1 patch, Topically, Daily, for 14 days, # 14 patch, 0 Refills, Acute 11/27/20 9:35:00 EDT, :35:00 EDT, Patch, [facility], Partial fill upon patient request if the prescriptionis for a schedule II opioid drug., 167.64, cm, 10/29... Start Date: 11/13/20 Stop Date: 11/27/20 Status: Ordered omeprazole 40 mg oral enteric coated capsule 1 capsule = 40 mg, By Mouth, Daily, # 30 capsule, 10 Refills, Maintenance, 04/22/20 13:08:00 EST, EC Capsule, [facility] #[id number], 168, cm, 04/22/20 12:49:00 EST, Height, 63.5, kg, 08/07/19 9:46:00 EDT, Dry Weight Start Date: 04/22/20 Stop Date: 03/18/21 Status: Ordered PEG-3350 with Electrolytes (Eqv-GoLYTELY) oral powder for reconstitution See Instructions, 1 glass every 15-30 minutes until finished, # 4,000 mL, 0 Refills, Maintenance, 08/26/20 16:28:00 EDT, [facility] #[id number], Partial fill upon patient request if the prescription is for a schedule II opioid drug., 1 glass ever... Start Date: 08/26/20 Status: Ordered ProAir HFA 90 mcg/inh inhalation aerosol with adapter 2, puffs, Inhalation, Every 6 hours, PRN, # 8.5 Gm, Refills 5, Tot. Refills 5, Maintenance, 07/04/20 8:18:00 EST, Aerosol, Route to Pharmacy Electronically, [id number], [facility] #[id number], 168, cm, 06/14/20 10:38:00... Start Date: 07/04/20 Status: Ordered tamsulosin 0.4 mg oral capsule 0.4 mg, 1, capsule, By Mouth, Daily, PER BELL HODGES, # 90 capsule, Refills 1, Tot. Refills 1, Maintenance, 10/16/20 8:15:00 EDT, Route to Pharmacy Electronically, [facility] #[id number], Partial fill upon patient request, 168, cm, 10/16/20... Start Date: 10/16/20 Status: Ordered traZODone 150 mg oral tablet 1 tablet, By Mouth, Daily at bedtime, PRN NEEDED FOR SLEEP, # 90 tablet, 1 Refills, Maintenance,10/16/20 8:15:00 EDT, [facility] #17758, 168, cm, 10/16/20 7:49:00 EDT, Height, 60, kg, 10/16/20 7:49:00 EDT, Dry Weight Start Date: 10/16/20 Stop Date: 04/14/21 Status: Ordered Tylenol 325 mg oral tablet 975 mg, 3, tablet, By Mouth, 2 times a day, for 14 days, # 84 tablet, Refills 0, Tot. Refills 0, Acute 11/27/20 9:33:00 EDT, 11/13/20 9:33:00 EDT, Route to Pharmacy Electronically, [facility], Partial fill upon patient [...] 2018. 2Repeat EGD in 07/2020 for surveillance 73369; repeat 2019 4R shoulder 2018 5DrShabnam Choi (ENT surgeons) Social History Social History Type Response Smoking Status Current every day herve toney entered on: 12/17/15 Sex
--- OUTSIDE RECORDS SUMMARY | 2022-12-14 11:02 | XMS_ITS | Continuity of Care Document ---
Author Name Unknown Organization [facility] [place] Address [address] [place] [address]- Care Team Providers Care Sports Attorney Name Role Phone Casey Suarez MD Primary Care Physician [phone] Encounter [facility] Date(s): 03/05/22 - 04/04/22 [facility] Adult [address] [place] [address]- Allergies, Adverse Reactions, Alerts Substance Reaction Severity [...] Comment: [facility]# [id number] 2Result Comment: [facility]# [address] [id number] 3Result Comment: Pt tolerated well. [facility] #[id number] 4Location History: [facility] 5Result Comment: [05/06/2017] [facility]:6752-8486-82 Medications aspirin 81 mg oral delayed release tablet 1 tablet, By Mouth, Daily, # 90 tablet, 0 Refills, [facility] #58017, 167.6, cm, 228:27:00 EDT, Height, 63.6, kg, 09/22/21 9:54:00 EDT, Dry Weight Start Date: 01/08/22 Status: Ordered atorvastatin 80 mg oral tablet 1 tablet, By Mouth, Daily at bedtime, # 90 tablet, 1 Refills, Maintenance, 03/06/22 12:15:00 EDT, [facility] #68028, 167.6, cm, 01/08/22 8:27:00 EDT, Height, 63.6, kg, 09/22/21 9:54:00 EDT,Dry Weight Start Date: 03/06/22 Status: Ordered EpiPen 2-Sameer 0.3 mg injectable kit = 0.3 mg, Intramuscular, Once, Must go to hospital if used, # 1 each, 1 Refills, Soft Stop, 01/09/21 14:45:00 EDT, [facility] #69044, 167.64, cm, 01/09/21 14:27:00 EDT, Height, 63.64, kg, 10/30/20 11:22:00 EDT, Dry Weight Start Date: 01/09/21 Status: Ordered gabapentin 300 mg oral capsule 2, capsule, By Mouth, 2 times a day, # 120 capsule, Refills 0, Maintenance, 04/01/22 14:31:00 EDT, Route to Pharmacy Electronically, [facility] #[id number], 167.6, cm, 03/19/22 9:24:00 EDT, Height, 63.6, [...] Weight Loss ICD 10 K85.90 R63.4 3 [place] 3 Vanilla Height 5'6 Weight 130lbs, 12/20/20 7:33:00 EDT, Supply Start Date: 12/20/20 Status: Ordered omeprazole 40 mg oral enteric coated capsule 1 capsule, By Mouth, Daily, # 30 capsule, 2 Refills, 03/05/22 12:01:00 EDT, [facility] #[id number], 167.6, cm, 01/08/22 8:27:00 EDT, Height, 63.6, kg, 09/22/21 9:54:00 EDT, Dry Weight Start Date: 03/05/22 Status: Ordered PEG-3350 with Electrolytes (Eqv-GoLYTELY) oral powder for reconstitution See Instructions, 1 glass every 15-30 minutes until finished, # 4,000 mL, 0 Refills, Maintenance, 08/26/20 16:28:00 EDT, [facility] #[id number], Partial fill upon patient request if the prescription is for a schedule II opioid drug., 1 glass ever... Start Date: 08/26/20 Status: Ordered ProAir HFA 90 mcg/inh inhalation aerosol with adapter 2, puffs, Inhalation, Every 6 hours, PRN, # 8.5 Gm, Refills 5, Tot. Refills 5, Maintenance, 07/04/20 8:18:00 EST, Aerosol, Route to Pharmacy Electronically, [id number], [facility] #25009, 168, cm, 06/14/20 10:38:00... Start Date: 07/04/20 [...] capsule, Refills 1, Route to Pharmacy Electronically, [facility] #[id number], 167.6, cm, 09/22/21 9:54:00 EDT, Height, 63.6, [...] FOR SLEEP, # 90 tablet, 1 Refills, [facility]54994, 167.6, cm, 09/22/21 9:54:00 EDT, Height, 63.6, kg, 09/22/21 9:54:00 EDT, Dry Weight Start Date: 10/10/21 Status: Ordered Problem List Condition Confirmation Course [...] 2019. 2Repeat EGD in 07/2020 for surveillance 65624; repeat 2019 4R shoulder 2018 5Dr. Jimbo (ENT surgeons) Social History Social History Type Response Smoking Status 10 or more cigarette s (1/2 pack or more)/day in last 30 days entered on: 03/13/22 Sex Patient Care team information Personnel Name: Casey Suarez MD Address: Address: [address] [place] [address]
--- OUTSIDE RECORDS SUMMARY | 2022-12-14 11:02 | XMS_ITS | Continuity of Care Document ---
Author Name Unknown Organization [facility] [place] Address [address] [place] [address]- Care Team Providers Care Maintenance Service Supervisor Name Role Phone Casey Suarez MD Primary Care Physician Encounter [facility] Date(s): 05/12/21 - 05/19/21 [facility] Adult [address] [place] [address]- Attending Physician: Not on Staff, Attending MD [...] en Parent Or Guardian Refuses 1Result Comment: [facility]# [address] [id number] 2Result Comment: Pt tolerated well. [facility] #[id number] 3Location History: [facility] 4Result Comment: [05/06/2017] [facility]:2234-2573-91 Medications aspirin 81 mg oral delayed release tablet 81 mg, 1, tablet, By Mouth, Daily, # 90 tablet, Refills 1, Tot. Refills 1, Maintenance, 01/09/21 14:52:00 EDT, Route to Pharmacy Electronically, [facility] #[id number], Partial fill upon patientrequest if the prescription is for a schedule II op... Start Date: 01/09/21 Status: Ordered atorvastatin 80 mg oral tablet 1 tablet = 80 mg, By Mouth, Daily at bedtime, # 90 tablet, 3 Refills, Maintenance, 02/12/21 10:54:00 EDT, Tablet, [facility] #[id number], 167.64, cm, 01/13/21 9:46:00 EDT, Height, 63.64, kg, 10/30/20 11:22:00 EDT, Dry Weight Start Date: 02/12/21 Stop Date: 02/07/22 Status: Ordered clopidogrel 75 mg oral tablet 75 mg, 1, tablet, By Mouth, Daily, # 30 tablet, Refills 11, Tot. Refills 11, Maintenance, 12/09/20 17:12:00 EDT, Route to Pharmacy Electronically, [facility] #[id number], Partial fill upon patient request if the prescription is for a schedule II... Start Date: 12/09/20 Status: Ordered EpiPen 2-Sameer 0.3 mg injectable kit = 0.3 mg, Intramuscular, Once, Must go to hospital if used, # 1 each, 1 Refills, Soft Stop, 01/09/21 14:45:00 EDT, [facility] #[id number], 167.64, cm, 01/09/21 14:27:00 EDT, Height, 63.64, [...] 01/13/21 9:59:00 EDT, Route to Pharmacy Electronically, [facility] #[id number], Partial fill upon patient request if the prescription is for a schedule II opi... Start Date: 01/13/21 Status: Ordered multivitamin Multiple Vitamins oral tablet 1 tablet, By Mouth, Daily, # 90 tablet, 1 Refills, Maintenance, 01/09/21 14:44:00 EDT, Tablet, [facility] #96020, 1 tablet By Mouth Daily, 167.64, cm, 01/09/21 14:27:00 EDT, Height, 63.64, kg, 10/30/20 11:22:00 EDT, Dry Weight Start Date: 01/09/21 Status: Ordered Nutritional Supplements See Instructions, # 90 each, Refills 11, Tot. Refills 11, Maintenance, High Protein Ensure Use TID DX Pancreatitis, Weight Loss ICD 10 K85.90 R63.4 3 [place] 3 Vanilla Height 5'6 Weight 130lbs, 12/20/20 7:33:00 EDT, Supply Start Date: 12/20/20 Status: Ordered omeprazole 40 mg oral enteric coated capsule 1 capsule = 40 mg, By Mouth, Daily, # 30 capsule, 2 Refills, Maintenance, 01/14/21 14:05:00 EDT, ECCapsule, [facility] #[id number], 167.64, cm, 01/13/21 9:46:00 EDT, Height, 63.64, kg, 10/30/2110:22:00 EDT, Dry Weight Start Date: 01/14/21 Stop Date: 04/14/21 Status: Ordered PEG-3350 with Electrolytes (Eqv-GoLYTELY) oral powder for reconstitution See Instructions, 1 glass every 15-30 minutes until finished, # 4,000 mL, 0 Refills, Maintenance, 08/26/20 16:28:00 EDT, [facility] #[id number], Partial fill upon patient request if the prescription is for a schedule II opioid drug., 1 glass ever... Start Date: 08/26/20 Status: Ordered ProAir HFA 90 mcg/inh inhalation aerosol with adapter 2, puffs, Inhalation, Every 6 hours, PRN, # 8.5 Gm, Refills 5, Tot. Refills 5, Maintenance, 07/04/20 8:18:00 EST, Aerosol, Route to Pharmacy Electronically, [id number], [facility] #[id number], 168, cm, 06/14/20 10:38:00... Start Date: 07/04/20 [...] capsule, Refills 1, Route to Pharmacy Electronically, [facility] #[id number], 167.64, cm, 03/20/21 8:49:00 EDT, Height, 63.64, [...] FOR SLEEP, # 90 tablet, 1 Refills, [facility] #72701, 167.64, cm, 03/20/21 8:49:00 EDT, Height, 63.64, [...] 2019. 2Repeat EGD in 07/2020 for surveillance 16917; repeat 2019 4R shoulder [address] 5Dr. Jimbo (ENT surgeons) Social History Social History Type Response Smoking Status Current every day herve toney entered on: 12/17/15 Sex
--- OUTSIDE RECORDS SUMMARY | 2022-12-14 11:02 | XMS_ITS | Continuity of Care Document ---
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 [facility] #[id number] 2Location History: [place] 3Result Comment: [05/06/2017] [facility]:[id number] Medications aspirin 81 mg oral delayed release tablet 81 mg, 1, tablet, By Mouth, Daily, # 90 tablet, Refills 1, Tot. Refills 1, Maintenance, 01/09/21 14:52:00 EDT, Route to Pharmacy Electronically, [facility] #[id number], Partial fill upon patientrequest if the prescription is for a schedule II op... Start Date: 01/09/21 Status: Ordered atorvastatin 80 mg oral tablet 1 tablet = 80 mg, By Mouth, Daily at bedtime, # 90 tablet, 4 Refills, Maintenance, 01/09/21 14:44:00 EDT, Tablet, [facility] #[id number], Partial fill upon patient request if the prescription isfor a schedule II opioid drug., 167.64, cm, ... Start Date: 01/09/21 Stop Date: 04/04/22 Status: Ordered clopidogrel 75 mg oral tablet 75 mg, 1, tablet, By Mouth, Daily, # 30 tablet, Refills 11, Tot. Refills 11, Maintenance, 12/09/20 17:12:00 EDT, Route to Pharmacy Electronically, [facility] #[id number], Partial fill upon patient request if the prescription is for a schedule II... Start Date: 12/09/20 Status: Ordered EpiPen 2-Sameer 0.3 mg injectable kit = 0.3 mg, Intramuscular, Once, Must go to hospital if used, # 1 each, 1 Refills, Soft Stop, 01/09/21 14:45:00 EDT, [facility] #[id number], 167.64, cm, 01/09/21 14:27:00 EDT, Height, 63.64, [...] 01/13/21 9:59:00 EDT, Route to Pharmacy Electronically, [facility] #[id number], Partial fill upon patient request if the prescription is for a schedule II opi... Start Date: 01/13/21 Status: Ordered multivitamin Multiple Vitamins oral tablet 1 tablet, By Mouth, Daily, # 90 tablet, 1 Refills, Maintenance, 01/09/21 14:44:00 EDT, Tablet, [facility] #[id number], 1 tablet By Mouth Daily, 167.64, cm, 01/09/21 14:27:00 EDT, Height, 63.64, kg, 10/30/20 11:22:00 EDT, Dry Weight Start Date: 01/09/21 Status: Ordered Nutritional Supplements See Instructions, # 90 each, Refills 11, Tot. Refills 11, Maintenance, High Protein Ensure Use TID DX Pancreatitis, Weight Loss ICD 10 K85.90 R63.4 3 [place] 3 Vanilla Height 5'6 Weight 130lbs, 12/20/20 7:33:00 EDT, Supply Start Date: 12/20/20 Status: Ordered omeprazole 40 mg oral enteric coated capsule 1 capsule = 40 mg, By Mouth, Daily, # 30 capsule, 2 Refills, Maintenance, 01/14/21 14:05:00 EDT, ECCapsule, [facility] #[id number], 167.64, cm, 01/13/21 9:46:00 EDT, Height, 63.64, kg, 10/30/2110:22:00 EDT, Dry Weight Start Date: 01/14/21 Stop Date: 04/14/21 Status: Ordered PEG-3350 with Electrolytes (Eqv-GoLYTELY) oral powder for reconstitution See Instructions, 1 glass every 15-30 minutes until finished, # 4,000 mL, 0 Refills, Maintenance, 08/26/20 16:28:00 EDT, [facility] #[id number], Partial fill upon patient request if the prescription is for a schedule II opioid drug., 1 glass ever... Start Date: 08/26/20 Status: Ordered ProAir HFA 90 mcg/inh inhalation aerosol with adapter 2, puffs, Inhalation, Every 6 hours, PRN, # 8.5 Gm, Refills 5, Tot. Refills 5, Maintenance, 07/04/20 8:18:00 EST, Aerosol, Route to Pharmacy Electronically, [id number], [facility] #[id number], 168, cm, 06/14/20 10:38:00... Start Date: 07/04/20 [...] 10/16/20 8:15:00 EDT, Route to Pharmacy Electronically, [facility] #[id number], Partial fill upon patient request, 168, cm, [...] 90 tablet, 1 Refills, Maintenance,10/16/20 8:15:00 EDT, [facility] #[id number], 168, cm, 10/16/20 7:49:00 EDT, Height, 60, [...] 2019. 2Repeat EGD in 07/2020 for surveillance 45419; repeat 2019 4R shoulder [address] 5Dr. Jimbo (ENT surgeons) Social History Social History Type Response Smoking Status Current every day herve toney entered on: 12/17/15 Sex
--- OUTSIDE RECORDS SUMMARY | 2022-12-14 11:02 | XMS_ITS | Continuity of Care Document ---
Author Name Unknown Organization [facility] [place] Address [address] [place] [address]- Care Team Providers Care Devulcanizer Charger Name Role Phone Casey Suarez MD Primary Care Physician Encounter [facility] Date(s): 08/05/20 - 09/04/20 [facility] Adult [address] [place] [address]- Allergies, Adverse Reactions, Alerts Substance Reaction Severity [...] Guardian Refuses 1Result Comment: Pt tolerated well. [facility] #[id number] 2Location History: [place] 3Result Comment: [05/06/2017] [facility]:[id number] Medications Creon 36,000 units oral delayed release capsule 1 capsule, By Mouth, 3 times a day, with each meal, # 90 capsule, 3 Refills, Maintenance, 08/07/19 11:39:00 EDT, [facility] #[id number], 1 capsule By Mouth 3 times a day,Instr:with each meal, 168, cm, 08/07/19 9:46:00 EDT, Height, 63.5, kg, 08/06... Start Date: 08/07/19 Status: Ordered ENSURE/VANILLA ENSURE/VANILLA, See Instructions, # 6 pack/packet, Refills 11, Tot. Refills 11, Maintenance, EnsureMax Protein Formula TID DX Pancreatitis Weight Loss 3 [place] 1 Vanilla, 08/28/20 7:45:00 EDT, Compound Start [...] 04/22/20 13:38:00 EST, Route to Pharmacy Electronically, [facility] #[id number], Partial fill upon patient request, 168, cm, 04/22/20 12:49:00 EST,... Start Date: 04/22/20 Status: Ordered multivitamin Multiple Vitamins oral tablet 1 tablet, By Mouth, Daily, # 30 tablet, 5 Refills, Maintenance, 04/22/20 13:08:00 EST, Tablet, [facility] #[id number], 1 tablet By Mouth Daily,x30 days, 168, cm, 04/22/20 12:49:00 EST, Height, 63.5, kg, 08/07/19 9:46:00 EDT, Dry Weight Start Date: 04/22/20 Stop Date: 10/19/20 Status: Ordered omeprazole 40 mg oral enteric coated capsule 1 capsule = 40 mg, By Mouth, Daily, # 30 capsule, 10 Refills, Maintenance, 04/22/20 13:08:00 EST, EC Capsule, [facility] #[id number], 168, cm, 04/22/20 12:49:00 EST, Height, 63.5, [...] mL, 0 Refills, Maintenance, 08/26/20 16:28:00 EDT, [facility] #[id number], Partial fill upon patient request if the prescription is for a schedule II opioid drug., 1 glass ever... Start Date: 08/26/20 Status: Ordered ProAir HFA 90 mcg/inh inhalation aerosol with adapter 2, puffs, Inhalation, Every 6 hours, PRN, # 8.5 Gm, Refills 5, Tot. Refills 5, Maintenance, 07/04/20 8:18:00 EST, Aerosol, Route to Pharmacy Electronically, [id number], [facility] #[id number], 168, cm, 06/14/20 10:38:00... Start Date: 07/04/20 Status: Ordered tamsulosin 0.4 mg oral capsule 0.4 mg, 1, capsule, By Mouth, Daily, PER BELL HODGES, # 90 capsule, Refills 1, Tot. Refills 1, Maintenance, 04/29/20 16:06:00 EST, Route to Pharmacy Electronically, [facility] #[id number],Partial fill upon patient request, 168, cm, ... Start Date: 04/29/20 Status: Ordered traZODone 150 mg oral tablet 1 tablet, By Mouth, Daily at bedtime, PRN NEEDED FOR SLEEP, # 30 tablet, 5 Refills, Maintenance,04/22/20 13:08:00 EST, [facility] #[id number], 168, cm, 04/22/20 12:49:00 EST, Height, 63.5, [...] 2019. 2Repeat EGD in 07/2020 for surveillance 27540; repeat 2019 4R shoulder 2018 5DrShabnam Choi (ENT surgeons) Social History Social History Type Response Smoking Status Current every day herve toney entered on: 12/17/15 Sex
--- OUTSIDE RECORDS SUMMARY | 2022-12-14 11:02 | XMS_ITS | Continuity of Care Document ---
Author Name Unknown Organization [facility] ter Address [address] [place] [address]- Care Team Providers Care Time Study Statistician Name Role Phone Daniela BROWN, Casey Jiménez Primary Care Physician Encounter [facility] Date(s): 08/26/20 - 01/16/[address] [address]- Attending Physician: Lambert Alvarez MD Admitting Physician: Lambert Alvarez MD Allergies, Adverse Reactions, Alerts Substance Reaction [...] Refuses 1Result Comment: Pt tolerated well. [facility] #[id number] 2Location History: [place] 3Result Comment: [05/06/2017] [facility]:[id number] Medications aspirin 81 mg oral delayed release tablet 81 mg, 1, tablet, By Mouth, Daily, # 90 tablet, Refills 1, Tot. Refills 1, Maintenance, 01/09/21 14:52:00 EDT, Route to Pharmacy Electronically, [facility] #[id number], Partial fill upon patientrequest if the prescription is for a schedule II op... Start Date: 01/09/21 Status: Ordered atorvastatin 80 mg oral tablet 1 tablet = 80 mg, By Mouth, Daily at bedtime, # 90 tablet, 4 Refills, Maintenance, 01/09/21 14:44:00 EDT, Tablet, [facility] #[id number], Partial fill upon patient request if the prescription isfor a schedule II opioid drug., 167.64, cm, ... Start Date: 01/09/21 Stop Date: 04/04/22 Status: Ordered clopidogrel 75 mg oral tablet 75 mg, 1, tablet, By Mouth, Daily, # 30 tablet, Refills 11, Tot. Refills 11, Maintenance, 12/09/20 17:12:00 EDT, Route to Pharmacy Electronically, [facility] #[id number], Partial fill upon patient request if the prescription is for a schedule II... Start Date: 12/09/20 Status: Ordered EpiPen 2-Sameer 0.3 mg injectable kit = 0.3 mg, Intramuscular, Once, Must go to hospital if used, # 1 each, 1 Refills, Soft Stop, 01/09/21 14:45:00 EDT, [facility] #[id number], 167.64, cm, 01/09/21 14:27:00 EDT, Height, 63.64, [...] 01/13/21 9:59:00 EDT, Route to Pharmacy Electronically, [facility] #[id number], Partial fill upon patient request if the prescription is for a schedule II opi... Start Date: 01/13/21 Status: Ordered multivitamin Multiple Vitamins oral tablet 1 tablet, By Mouth, Daily, # 90 tablet, 1 Refills, Maintenance, 01/09/21 14:44:00 EDT, Tablet, [facility] #[id number], 1 tablet By Mouth Daily, 167.64, cm, 01/09/21 14:27:00 EDT, Height, 63.64, kg, 10/30/20 11:22:00 EDT, Dry Weight Start Date: 01/09/21 Status: Ordered Nutritional Supplements See Instructions, # 90 each, Refills 11, Tot. Refills 11, Maintenance, High Protein Ensure Use TID DX Pancreatitis, Weight Loss ICD 10 K85.90 R63.4 3 [place] 3 Vanilla Height 5'6 Weight 130lbs, 12/20/20 7:33:00 EDT, Supply Start Date: 12/20/20 Status: Ordered omeprazole 40 mg oral enteric coated capsule 1 capsule = 40 mg, By Mouth, Daily, # 30 capsule, 2 Refills, Maintenance, 01/14/21 14:05:00 EDT, ECCapsule, [facility] #[id number], 167.64, cm, 01/13/21 9:46:00 EDT, Height, 63.64, kg, 10/30/2110:22:00 EDT, Dry Weight Start Date: 01/14/21 Stop Date: 04/14/21 Status: Ordered PEG-3350 with Electrolytes (Eqv-GoLYTELY) oral powder for reconstitution See Instructions, 1 glass every 15-30 minutes until finished, # 4,000 mL, 0 Refills, Maintenance, 08/26/20 16:28:00 EDT, [facility] #[id number], Partial fill upon patient request if the prescription is for a schedule II opioid drug., 1 glass ever... Start Date: 08/26/20 Status: Ordered ProAir HFA 90 mcg/inh inhalation aerosol with adapter 2, puffs, Inhalation, Every 6 hours, PRN, # 8.5 Gm, Refills 5, Tot. Refills 5, Maintenance, 07/04/20 8:18:00 EST, Aerosol, Route to Pharmacy Electronically, [id number], [facility] #[id number], 168, cm, 06/14/20 10:38:00... Start Date: 07/04/20 [...] 10/16/20 8:15:00 EDT, Route to Pharmacy Electronically, [facility] #[id number], Partial fill upon patient request, 168, cm, [...] 90 tablet, 1 Refills, Maintenance,10/16/20 8:15:00 EDT, [facility] #[id number], 168, cm, 10/16/20 7:49:00 EDT, Height, 60, [...] 2019. 2Repeat EGD in 07/2020 for surveillance 51207; repeat 2019 4R shoulder 2018 5Dr. Jimbo (ENT surgeons) Social History Social History Type Response Smoking Status Current every day herve toney entered on: 12/17/15 Sex
--- OUTSIDE RECORDS SUMMARY | 2022-12-14 11:02 | XMS_ITS | Continuity of Care Document ---
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 [facility] #[id number] 2Location History: [place] 3Result Comment: [05/06/2017] [facility]:1114-0446-38 Medications albuterol 0.083% inhalation solution 3 mL [...] 05/04/19 14:51:08 EST, Route to Pharmacy Electronically, [id number], [facility] #[id number], 168, cm, 05/02/19 8:32:30... Start Date: 05/04/19 Stop Date: 09/01/19 Status: Ordered lisinopril 10 mg oral tablet See Instructions, TAKE 1 TABLET BY MOUTH EVERY DAY, # 30 tablet, Refills 2, Tot. Refills 2, Soft Stop, 05/22/19 16:32:00 EST, Instructions Replace Required Details, Route to Pharmacy Electronically, [facility] #[id number], 168, cm, 05/19/19 8:56:... Start Date: 05/22/19 [...] 16:26:00 EST, Aerosol, Route to Pharmacy Electronically, [id number], [facility] #[id number], 168, cm, 07/24/19 9:01:00... Start Date: 07/24/19 Status: Ordered tamsulosin 0.4 mg oral capsule 0.4 mg, 1, capsule, By Mouth, Daily, Refills 0, Maintenance, 07/25/19 10:23:00 EST Start Date: 07/25/19 Status: Ordered traZODone 150 mg oral tablet 1 tablet, By Mouth, Daily at bedtime, PRN NEEDED FOR SLEEP, # 30 tablet, 5 Refills, Maintenance,06/27/19 16:32:00 EST, [facility] #[id number], 168, cm, 05/19/19 8:56:00 EST, Height, 57.4, [...] 2019. 2Repeat EGD in 07/2020 for surveillance 41729; repeat 2019 4R shoulder 2018 5Dr. Jimbo (ENT surgeons) Diagnosis Diagnosis Type Effective Dates Health Status Clinical Service Informant Necrotizing pancreatitis Discharge Diagnosis 07/24/19 Thrombosis of arm Discharge Diagnosis 07/24/19 Vital Signs Most recent to oldest [Reference Range]: 1 Height 168 cm (07/24/19 9:01 AM) Weight 64.0 kg (07/24/19 9:01 AM) Oxygen Saturation [94-100 %] 96 % (07/24/19 9:01 AM) Pulse Rate [55-90 bpm] 62 bpm (07/24/19 9:01 AM) Body Mass Index [18.5-24.99] 22.68 (07/24/19 9:01 AM) Blood Pressure [90-138/55-84 mm Hg] 124/ 62mm Hg (07/24/19 9:01 AM) Blood pressure sites Arm, left (07/24/19 9:01 AM) Social History Social History Type Response Smoking Status Current every day herve toney entered on: 12/17/15 Sex
--- OUTSIDE RECORDS SUMMARY | 2022-12-14 11:02 | XMS_ITS | Continuity of Care Document ---
Author Name Unknown Organization [facility] ter Address [address] [place] [address]- Care Team Providers Care Operational Communication Chief Name Role Phone Casey Suarez MD Primary Care Physician Encounter [facility] Date(s): 11/12/20 - 12/12/[address] [address] Attending Physician: Not on Staff, Attending MD Admitting Physician: Not on Staff, Admitting MD Referring Physician: Not on Staff, Referring [...] Pt tolerated well. [facility] #[id number] 2Location History: [place] 3Result Comment: [05/06/2017] [facility]:5834-7692-97 Medications amiodarone 200 mg oral tablet 200 mg, 1, tablet, By Mouth, 2 times a day, # 60 tablet, Refills 0, Tot. Refills 0, Maintenance, 11/13/20 9:34:00 EDT, Route to Pharmacy Electronically, [facility], Partial fill upon patient request if the prescription is for a schedule... Start Date: 11/13/20 Status: Ordered aspirin 81 mg oral delayed release tablet 81 mg, 1, tablet, By Mouth, Daily, Future refills to come from cardiology or PCP, # 30 tablet, Refills 0, Tot. Refills 0, Maintenance, 12/13/20 9:32:00 EDT, Route to Pharmacy Electronically, [facility] #[id number], Partial fill upon patient reque... Start Date: 12/13/20 Stop Date: 01/12/21 Status: Ordered aspirin 81 mg oral delayed release tablet 81 mg, By Mouth, Daily, for 30 days, # 30 tablet, Refills 0, Tot. Refills 0, Hard Stop 12/13/20 9:32:00 EDT, 11/13/20 9:32:00 EDT, Route to Pharmacy Electronically, [facility], Partial fill upon patient request if the prescription is for... Start Date: 11/13/20 Stop Date: 12/13/20 Status: Ordered atorvastatin 80 mg oral tablet 1 tablet = 80 mg, By Mouth, Daily at bedtime, # 90 tablet, 4 Refills, Maintenance, 02/07/21 10:28:00 EDT, Tablet, [facility] #[id number], Partial fill upon patient request if the prescription isfor a schedule II opioid drug., 167.64, cm, ... Start Date: 02/07/21 Stop Date: 05/03/22 Status: Ordered atorvastatin 80 mg oral tablet 1 tablet = 80 mg, By Mouth, Daily at bedtime, for 30 days, # 30 tablet, 1 Refills, Hard Stop 02/07/21 10:28:00 EDT, 12/09/20 10:28:00 EDT, Tablet, [facility] #[id number], Partial fill upon patient request if the prescription is for a schedule II... Start Date: 12/09/20 Stop Date: 02/07/21 Status: Ordered clopidogrel 75 mg oral tablet 75 mg, 1, tablet, By Mouth, Daily, # 30 tablet, Refills 11, Tot. Refills 11, Maintenance, 12/09/20 17:12:00 EDT, Route to Pharmacy Electronically, [facility] #[id number], Partial fill upon patient request if the prescription is for a schedule II... Start Date: 12/09/20 Status: Ordered docusate sodium 100 mg oral tablet = 100 mg, By Mouth, 2 times a day, # 6 tablet, 0 Refills, Maintenance, 11/13/20 9:34:00 EDT, Tablet, [facility], Partial fill upon patient [...] 11/13/20 9:32:00 EDT, Route to Pharmacy Electronically, [facility], Partial fill upon patient request, 167.64, cm, 11/13/20 6:08:00 EDT, H... Start Date: 11/13/20 Stop Date: 06/11/21 Status: Ordered metoprolol 50 mg oral tablet 50 mg, 1, tablet, By Mouth, 2 times a day, Future refills to come from cardiology or PCP, # 60 capsule, Refills 0, Tot. Refills 0, Maintenance, 12/13/20 9:33:00 EDT, Route to Pharmacy Electronically,[facility] #[id number], Metoprolol tartrate ta... Start Date: 12/13/20 Stop Date: 01/12/21 Status: Ordered metoprolol 50 mg oral tablet 50 mg, 1, tablet, By Mouth, 2 times a day, for 30 days, # 60 tablet, Refills 0, Tot. Refills 0, Hard Stop 12/13/20 9:33:00 EDT, 11/13/20 9:33:00 EDT, Route to Pharmacy Electronically, [facility], Partial fill upon patient request if the... Start Date: 11/13/20 Stop Date: 12/13/20 Status: Ordered multivitamin Multiple Vitamins oral tablet 1 tablet, By Mouth, Daily, # 30 tablet, 0 Refills, Maintenance, 12/09/20 17:12:00 EDT, Tablet, [facility] #[id number], 1 tablet By Mouth Daily, 167.64, cm, 11/22/20 15:34:00 EDT, Height, 63.64, kg, 10/30/20 11:22:00 EDT, Dry Weight Start Date: 12/09/20 Stop Date: 06/07/21 Status: Ordered Nutritional Supplements See Instructions, # 90 each, Refills 11, Tot. Refills 11, Maintenance, High Protein Ensure Use TID DX Pancreatitis, Weight Loss ICD 10 K85.90 R63.4 3 [place] 3 Vanilla Height 5'6 Weight 130lbs, 12/10/20 13:52:00 EDT, Supply Start Date: 12/10/20 Status: Ordered omeprazole 40 mg oral enteric coated capsule 1 capsule = 40 mg, By Mouth, Daily, # 30 capsule, 10 Refills, Maintenance, 04/22/20 13:08:00 EST, EC Capsule, [facility] #[id number], 168, cm, 04/22/20 12:49:00 EST, Height, 63.5, [...] mL, 0 Refills, Maintenance, 08/26/20 16:28:00 EDT, [facility] #[id number], Partial fill upon patient request if the prescription is for a schedule II opioid drug., 1 glass ever... Start Date: 08/26/20 Status: Ordered ProAir HFA 90 mcg/inh inhalation aerosol with adapter 2, puffs, Inhalation, Every 6 hours, PRN, # 8.5 Gm, Refills 5, Tot. Refills 5, Maintenance, 07/04/20 8:18:00 EST, Aerosol, Route to Pharmacy Electronically, [id number], [facility] #[id number], 168, cm, 06/14/20 10:38:00... Start Date: 07/04/20 Status: Ordered tamsulosin 0.4 mg oral capsule 0.4 mg, 1, capsule, By Mouth, Daily, PER BELL HODGES, # 90 capsule, Refills 1, Tot. Refills 1, Maintenance, 10/16/20 8:15:00 EDT, Route to Pharmacy Electronically, [facility] #[id number], Partial fill upon patient request, 168, cm, 10/16/20... Start Date: 10/16/20 Status: Ordered traZODone 150 mg oral tablet 1 tablet, By Mouth, Daily at bedtime, PRN NEEDED FOR SLEEP, # 90 tablet, 1 Refills, Maintenance,10/16/20 8:15:00 EDT, [facility] #[id number], 168, cm, 10/16/20 7:49:00 EDT, Height, 60, [...] 2018. 2Repeat EGD in 07/2020 for surveillance 09636; repeat 2019 4R shoulder 2018 5DrShabnam Choi (ENT surgeons) Social History Social History Type Response Smoking Status Current every day herve toney entered on: 12/17/15 Sex
--- OUTSIDE RECORDS SUMMARY | 2022-12-14 11:02 | XMS_ITS | Continuity of Care Document ---
Author Name Unknown Organization [facility] [place] Address [address] [place] [address]- Care Team Providers Care Caddy Name Role Phone Casey Suarez MD Primary Care Physician [phone] [facility] - 06[facility]12[facility]20 [facility] [address] [place] [address]- Allergies, Adverse Reactions, Alerts Substance Reaction Severity [...] Refuses 1Result Comment: Pt tolerated well. [facility][NOTE 3] #[id number] 2Location History: [place] 3Result Comment: [05/06/2017] [facility][NOTE 3]:[id number] Medications albuterol 0.083% inhalation solution 3 mL = 2.5 mg, Inhalation, Every 6 hours, # 120 each, 2 Refills, Maintenance, 04/30/20 11:23:00 EST, Solution, [facility] #[id number], 168, cm, 04/30/20 11:04:00 EST, Height, 63.5, [...] Refills, Soft Stop, 05/03/20 16:00:00 EST, Tablet, [facility] #[id number], Partial fill upon patient request if the prescription is for a schedule IIopioid drug., 168, cm, 04/30/20 11:04:00 EST, Heigh... Start Date: 05/03/20 Status: Ordered Creon 36,000 units oral delayed release capsule 1 capsule, By Mouth, 3 times a day, with each meal, # 90 capsule, 3 Refills, Maintenance, 08/07/19 11:39:00 EDT, [facility] #[id number], 1 capsule By Mouth 3 times a day,Instr:with each meal, 168, cm, 08/07/19 9:46:00 EDT, Height, 63.5, kg, 08/06... Start Date: 08/07/19 Status: Ordered Crestor 40 mg oral tablet 1 tablet = 40 mg, By Mouth, Daily, # 90 tablet, 3 Refills, Maintenance, 04/22/20 13:08:00 EST, Tablet, [facility] #[id number], 168, cm, 04/22/20 12:49:00 EST, Height, 63.5, [...] 04/22/20 13:38:00 EST, Route to Pharmacy Electronically, [facility] #[id number], Partial fill upon patient request, 168, cm, [...] 5 Refills, Maintenance, 04/22/20 13:08:00 EST, Tablet, [facility] #[id number], 1 tablet By Mouth Daily,x30 days, 168, cm, 04/22/20 12:49:00 EST, Height, 63.5, kg, 08/07/19 9:46:00 EDT, Dry Weight Start Date: 04/22/20 Stop Date: 10/19/20 Status: Ordered omeprazole 40 mg oral enteric coated capsule 1 capsule = 40 mg, By Mouth, Daily, # 30 capsule, 10 Refills, Maintenance, 04/22/20 13:08:00 EST, EC Capsule, [facility] #56307, 168, cm, 04/22/20 12:49:00 EST, Height, 63.5, [...] tablet, 0 Refills, Maintenance, 05/03/20 16:00:00 EST, [facility] #[id number], Partial fill upon patient request if the prescription is for a schedule II opioid... Start Date: 05/03/20 Status: Ordered ProAir HFA 90 mcg/inh inhalation aerosol with adapter 2, puffs, Inhalation, Every 6 hours, PRN, # 8.5 Gm, Refills 2, Tot. Refills 2, Maintenance, 04/22/20 13:08:00 EST, Aerosol, Route to Pharmacy Electronically, [id number], [facility] #[id number], 168, cm, 04/22/20 12:49:00... Start Date: 04/22/20 Status: Ordered tamsulosin 0.4 mg oral capsule 0.4 mg, 1, capsule, By Mouth, Daily, PER BELL HODGES, # 90 capsule, Refills 1, Tot. Refills 1, Maintenance, 04/29/20 16:06:00 EST, Route to Pharmacy Electronically, [facility] #[id number],Partial fill upon patient request, 168, cm, ... Start Date: 04/29/20 Status: Ordered tiZANidine 4 mg oral capsule 2 capsule = 8 mg, By Mouth, 3 times a day, 0 Refills, Maintenance, 10/13/19 10:32:00 EDT Start Date: 10/13/19 Status: Ordered traZODone 150 mg oral tablet 1 tablet, By Mouth, Daily at bedtime, PRN NEEDED FOR SLEEP, # 30 tablet, 5 Refills, Maintenance,04/22/20 13:08:00 EST, [facility] #[id number], 168, cm, 04/22/20 12:49:00 EST, Height, 63.5, [...] 2018. 2Repeat EGD in 07/2020 for surveillance 14504; repeat 2019 4R shoulder 2017 5Dr. Jimbo (ENT surgeons) Social History Social History Type Response Smoking Status Current every day herve toney entered on: 12/17/15 Sex
--- OUTSIDE RECORDS SUMMARY | 2022-12-14 11:02 | XMS_ITS | Continuity of Care Document ---
Author Name Unknown Organization [facility] [place] Address [address] [place] [address]- Care Team Providers Care Youth Care Professional Name Role Phone Daniela BROWN, Casey Jiménez Primary Care Physician [facility]21 - 06/08/21 [facility] Adult [address] [place] [address]- Allergies, Adverse Reactions, Alerts Substance Reaction Severity [...] Or Guardian Refuses 1Result Comment: [facility]# [address] [id number] 2Result Comment: Pt tolerated well. [facility] #[id number] 3Location History: [facility] 4Result Comment: [05/06/2017] [facility]:[id number] Medications aspirin 81 mg oral delayed release tablet 81 mg, 1, tablet, By Mouth, Daily, # 90 tablet, Refills 1, Tot. Refills 1, Maintenance, 01/09/21 14:52:00 EDT, Route to Pharmacy Electronically, [facility] #[id number], Partial fill upon patientrequest if the prescription is for a schedule II op... Start Date: 01/09/21 Status: Ordered atorvastatin 80 mg oral tablet 1 tablet = 80 mg, By Mouth, Daily at bedtime, # 90 tablet, 3 Refills, Maintenance, 02/12/21 10:54:00 EDT, Tablet, [facility] #[id number], 167.64, cm, 01/13/21 9:46:00 EDT, Height, 63.64, kg, 10/30/20 11:22:00 EDT, Dry Weight Start Date: 02/12/21 Stop Date: 02/07/22 Status: Ordered clopidogrel 75 mg oral tablet 75 mg, 1, tablet, By Mouth, Daily, # 30 tablet, Refills 11, Tot. Refills 11, Maintenance, 12/09/20 17:12:00 EDT, Route to Pharmacy Electronically, [facility] #98383, Partial fill upon patient request if the prescription is for a schedule II... Start Date: 12/09/20 Status: Ordered EpiPen 2-Sameer 0.3 mg injectable kit = 0.3 mg, Intramuscular, Once, Must go to hospital if used, # 1 each, 1 Refills, Soft Stop, 01/09/21 14:45:00 EDT, [facility] #[id number], 167.64, cm, 01/09/21 14:27:00 EDT, Height, 63.64, [...] 01/13/21 9:59:00 EDT, Route to Pharmacy Electronically, [facility] #[id number], Partial fill upon patient request if the prescription is for a schedule II opi... Start Date: 01/13/21 Status: Ordered multivitamin Multiple Vitamins oral tablet 1 tablet, By Mouth, Daily, # 90 tablet, 1 Refills, Maintenance, 01/09/21 14:44:00 EDT, Tablet, [facility] #[id number], 1 tablet By Mouth Daily, 167.64, cm, 01/09/21 14:27:00 EDT, Height, 63.64, kg, 10/30/20 11:22:00 EDT, Dry Weight Start Date: 01/09/21 Status: Ordered Nutritional Supplements See Instructions, # 90 each, Refills 11, Tot. Refills 11, Maintenance, High Protein Ensure Use TID DX Pancreatitis, Weight Loss ICD 10 K85.90 R63.4 3 [place] 3 Vanilla Height 5'6 Weight 130lbs, 12/20/20 7:33:00 EDT, Supply Start Date: 12/20/20 Status: Ordered omeprazole 40 mg oral enteric coated capsule 1 capsule = 40 mg, By Mouth, Daily, # 30 capsule, 2 Refills, Maintenance, 01/14/21 14:05:00 EDT, ECCapsule, [facility] #[id number], 167.64, cm, 01/13/21 9:46:00 EDT, Height, 63.64, kg, 10/30/2110:22:00 EDT, Dry Weight Start Date: 01/14/21 Stop Date: 04/14/21 Status: Ordered PEG-3350 with Electrolytes (Eqv-GoLYTELY) oral powder for reconstitution See Instructions, 1 glass every 15-30 minutes until finished, # 4,000 mL, 0 Refills, Maintenance, 08/26/20 16:28:00 EDT, [facility] #[id number], Partial fill upon patient request if the prescription is for a schedule II opioid drug., 1 glass ever... Start Date: 08/26/20 Status: Ordered ProAir HFA 90 mcg/inh inhalation aerosol with adapter 2, puffs, Inhalation, Every 6 hours, PRN, # 8.5 Gm, Refills 5, Tot. Refills 5, Maintenance, 07/04/20 8:18:00 EST, Aerosol, Route to Pharmacy Electronically, [id number], [facility] #[id number], 168, cm, 06/14/20 10:38:00... Start Date: 07/04/20 [...] capsule, Refills 1, Route to Pharmacy Electronically, [facility] #[id number], 167.64, cm, 03/20/21 8:49:00 EDT, Height, 63.64, [...] FOR SLEEP, # 90 tablet, 1 Refills, [facility] #[id number], 167.64, cm, 03/20/21 8:49:00 EDT, Height, 63.64, [...] 2019. 2Repeat EGD in 07/2020 for surveillance 29914; repeat 2019 4R shoulder 2018 5Dr. Jimbo (ENT surgeons) Social History Social History Type Response Smoking Status Current every day herve toney entered on: 12/17/15 Sex
--- OUTSIDE RECORDS SUMMARY | 2022-12-14 11:02 | XMS_ITS | Continuity of Care Document ---
Author Name Unknown Organization [facility] [place] [place] Address [address] [place] [address]- Care Team Providers Care Hadoop Analyst Name Role Phone Casey Suarez MD Primary Care Physician [facility] 09[facility]20 - 10/05/20 [facility] [place] Adult [address] [place] [address]- Attending Physician: Admtr, Ar8 Admitting Physician: Admtr, [...] Comment: Pt tolerated well. [facility] #[id number] 2Location History: [facility] 3Result Comment: [05/06/2017] [facility]:[id number] Medications Creon 36,000 units oral delayed release capsule 1 capsule, By Mouth, 3 times a day, with each meal, # 90 capsule, 3 Refills, Maintenance, 08/07/19 11:39:00 EDT, [facility] #[id number], 1 capsule By Mouth 3 times a [...] Formula TID DX Pancreatitis Weight Loss 3 [place] 1 Vanilla, 08/28/20 7:45:00 EDT, Compound Start [...] 04/22/20 13:38:00 EST, Route to Pharmacy Electronically, [facility] #[id number], Partial fill upon patient request, 168, cm, 04/22/20 12:49:00 EST,... Start Date: 04/22/20 Status: Ordered multivitamin Multiple Vitamins oral tablet 1 tablet, By Mouth, Daily, # 30 tablet, 5 Refills, Maintenance, 04/22/20 13:08:00 EST, Tablet, [facility] #91052, 1 tablet By Mouth Daily,x30 days, 168, cm, 04/22/20 12:49:00 EST, Height, 63.5, kg, 08/07/19 9:46:00 EDT, Dry Weight Start Date: 04/22/20 Stop Date: 10/19/20 Status: Ordered omeprazole 40 mg oral enteric coated capsule 1 capsule = 40 mg, By Mouth, Daily, # 30 capsule, 10 Refills, Maintenance, 04/22/20 13:08:00 EST, EC Capsule, [facility] #[id number], 168, cm, 04/22/20 12:49:00 EST, Height, 63.5, [...] mL, 0 Refills, Maintenance, 08/26/20 16:28:00 EDT, [facility] #[id number], Partial fill upon patient request if the prescription is for a schedule II opioid drug., 1 glass ever... Start Date: 08/26/20 Status: Ordered ProAir HFA 90 mcg/inh inhalation aerosol with adapter 2, puffs, Inhalation, Every 6 hours, PRN, # 8.5 Gm, Refills 5, Tot. Refills 5, Maintenance, 07/04/20 8:18:00 EST, Aerosol, Route to Pharmacy Electronically, [id number], [facility] #35702, 168, cm, 06/14/20 10:38:00... Start Date: 07/04/20 Status: Ordered tamsulosin 0.4 mg oral capsule 0.4 mg, 1, capsule, By Mouth, Daily, PER BELL HODGES, # 90 capsule, Refills 1, Tot. Refills 1, Maintenance, 04/29/20 16:06:00 EST, Route to Pharmacy Electronically, [facility] #[id number],Partial fill upon patient request, 168, cm, ... Start Date: 04/29/20 Status: Ordered traZODone 150 mg oral tablet 1 tablet, By Mouth, Daily at bedtime, PRN NEEDED FOR SLEEP, # 30 tablet, 5 Refills, Maintenance,04/22/20 13:08:00 EST, [facility] #[id number], 168, cm, 04/22/20 12:49:00 EST, Height, 63.5, [...] 2019. 2Repeat EGD in 07/2020 for surveillance 70884; repeat 2019 4R shoulder 2018 5Dr. Jimbo (ENT surgeons) Social History Social History Type Response Smoking Status Current every day herve toney entered on: 12/17/15 Sex
--- OUTSIDE RECORDS SUMMARY | 2022-12-14 11:02 | XMS_ITS | Continuity of Care Document ---
Author Name Unknown Organization [facility] [place] Address [address] [place] [address]- Care Team Providers Care Electrician Master Name Role Phone Casey Suarez MD Primary Care Physician [phone] [facility]s): 11/22/20 - 12/22/20 [facility] Adult [address] [place] [address]- Attending Physician: Admtr, Ar8 Admitting Physician: Admtr, [...] Guardian Refuses 1Result Comment: Pt tolerated well. [facility] #[id number] 2Location History: [facility] 3Result Comment: [05/06/2017] [facility]:[id number] Medications amiodarone 200 mg oral tablet 200 mg, 1, tablet, By Mouth, 2 times a day, # 60 tablet, Refills 0, Tot. Refills 0, Maintenance, 11/13/20 9:34:00 EDT, Route to Pharmacy Electronically, [facility], Partial fill upon patient request if the prescription is for a schedule... Start Date: 11/13/20 Status: Ordered aspirin 81 mg oral delayed release tablet 81 mg, 1, tablet, By Mouth, Daily, Future refills to come from cardiology or PCP, # 30 tablet, Refills 0, Tot. Refills 0, Maintenance, 12/13/20 9:32:00 EDT, Route to Pharmacy Electronically, [facility] #[id number], Partial fill upon patient reque... Start Date: 12/13/20 Stop Date: 01/12/21 Status: Ordered atorvastatin 80 mg oral tablet 1 tablet = 80 mg, By Mouth, Daily at bedtime, # 90 tablet, 4 Refills, Maintenance, 02/07/21 10:28:00 EDT, Tablet, [facility] #[id number], Partial fill upon patient request if the prescription isfor a schedule II opioid drug., 167.64, cm, ... Start Date: 02/07/21 Stop Date: 05/03/22 Status: Ordered atorvastatin 80 mg oral tablet 1 tablet = 80 mg, By Mouth, Daily at bedtime, for 30 days, # 30 tablet, 1 Refills, Hard Stop 02/07/21 10:28:00 EDT, 12/09/20 10:28:00 EDT, Tablet, [facility] #[id number], Partial fill upon patient request if the prescription is for a schedule II... Start Date: 12/09/20 Stop Date: 02/07/21 Status: Ordered clopidogrel 75 mg oral tablet 75 mg, 1, tablet, By Mouth, Daily, # 30 tablet, Refills 11, Tot. Refills 11, Maintenance, 12/09/20 17:12:00 EDT, Route to Pharmacy Electronically, [facility] #[id number], Partial fill upon patient request if the prescription is for a schedule II... Start Date: 12/09/20 Status: Ordered docusate sodium 100 mg oral tablet = 100 mg, By Mouth, 2 times a day, # 6 tablet, 0 Refills, Maintenance, 11/13/20 9:34:00 EDT, Tablet, [facility], Partial fill upon patient [...] 11/13/20 9:32:00 EDT, Route to Pharmacy Electronically, [facility], Partial fill upon patient request, 167.64, cm, 11/13/20 6:08:00 EDT, H... Start Date: 11/13/20 Stop Date: 06/11/21 Status: Ordered metoprolol 50 mg oral tablet 50 mg, 1, tablet, By Mouth, 2 times a day, Future refills to come from cardiology or PCP, # 60 capsule, Refills 0, Tot. Refills 0, Maintenance, 12/13/20 9:33:00 EDT, Route to Pharmacy Electronically,[facility] #[id number], Metoprolol tartrate ta... Start Date: 12/13/20 Stop Date: 01/12/21 Status: Ordered multivitamin Multiple Vitamins oral tablet 1 tablet, By Mouth, Daily, # 30 tablet, 0 Refills, Maintenance, 12/09/20 17:12:00 EDT, Tablet, [facility] #[id number], 1 tablet By Mouth Daily, 167.64, cm, 11/22/20 15:34:00 EDT, Height, 63.64, kg, 10/30/20 11:22:00 EDT, Dry Weight Start Date: 12/09/20 Stop Date: 06/07/21 Status: Ordered Nutritional Supplements See Instructions, # 90 each, Refills 11, Tot. Refills 11, Maintenance, High Protein Ensure Use TID DX Pancreatitis, Weight Loss ICD 10 K85.90 R63.4 3 [place] 3 Vanilla Height 5'6 Weight 130lbs, 12/20/20 7:33:00 EDT, Supply Start Date: 12/20/20 Status: Ordered omeprazole 40 mg oral enteric coated capsule 1 capsule = 40 mg, By Mouth, Daily, # 30 capsule, 10 Refills, Maintenance, 04/22/20 13:08:00 EST, EC Capsule, [facility] #[id number], 168, cm, 04/22/20 12:49:00 EST, Height, 63.5, [...] mL, 0 Refills, Maintenance, 08/26/20 16:28:00 EDT, [facility] #[id number], Partial fill upon patient request if the prescription is for a schedule II opioid drug., 1 glass ever... Start Date: 08/26/20 Status: Ordered ProAir HFA 90 mcg/inh inhalation aerosol with adapter 2, puffs, Inhalation, Every 6 hours, PRN, # 8.5 Gm, Refills 5, Tot. Refills 5, Maintenance, 07/04/20 8:18:00 EST, Aerosol, Route to Pharmacy Electronically, [id number], [facility] #[id number], 168, cm, 06/14/20 10:38:00... Start Date: 07/04/20 Status: Ordered tamsulosin 0.4 mg oral capsule 0.4 mg, 1, capsule, By Mouth, Daily, PER BELL HUNTER NP-C, # 90 capsule, Refills 1, Tot. Refills 1, Maintenance, 10/16/20 8:15:00 EDT, Route to Pharmacy Electronically, [facility] #[id number], Partial fill upon patient request, 168, cm, 10/16/20... Start Date: 10/16/20 Status: Ordered traZODone 150 mg oral tablet 1 tablet, By Mouth, Daily at bedtime, PRN NEEDED FOR SLEEP, # 90 tablet, 1 Refills, Maintenance,10/16/20 8:15:00 EDT, [facility] #56389, 168, cm, 10/16/20 7:49:00 EDT, Height, 60, [...] 2019. 2Repeat EGD in 07/2020 for surveillance 69663; repeat 2019 4R shoulder [address] 5Dr[address] Jimbo (ENT surgeons) Social History Social History Type Response Smoking Status Current every day herve toney entered on: 12/17/15 Sex
--- OUTSIDE RECORDS SUMMARY | 2022-12-14 11:02 | XMS_ITS | Continuity of Care Document ---
Author Name Unknown Organization [facility] [place] Address [address] [place] [address]- Care Team Providers Care Musculoskeletal Physiotherapist Name Role Phone Casey Suarez MD Primary Care Physician [facility] 04[facility]20 - 05/30/20 [facility] [address] [place] [address]- Attending Physician: Admtr, Ar8 Admitting Physician: Admtr, [...] 1Result Comment: Pt tolerated well. [facility] #[id number] 2Location History: [facility] 3Result Comment: [05/06/2017] [facility]:[id number] Medications albuterol 0.083% inhalation solution 3 mL = 2.5 mg, Inhalation, Every 6 hours, # 120 each, 2 Refills, Maintenance, 04/30/20 11:23:00 EST, Solution, [facility] #[id number], 168, cm, 04/30/20 11:04:00 EST, Height, 63.5, [...] 0 Refills, Soft Stop, 05/03/20 16:00:00 EST, [facility] #[id number], Partial fill upon patient request if the prescription is for a schedule IIopioid drug., 168, cm, 04/30/20 11:04:00 EST, Heigh... Start Date: 05/03/20 Status: Ordered Creon 36,000 units oral delayed release capsule 1 capsule, By Mouth, 3 times a day, with each meal, # 90 capsule, 3 Refills, Maintenance, 08/07/19 11:39:00 EDT, [facility] #[id number], 1 capsule By Mouth 3 times a day,Instr:with each meal, 168, cm, 08/07/19 9:46:00 EDT, Height, 63.5, kg, 08/06... Start Date: 08/07/19 Status: Ordered Crestor 40 mg oral tablet 1 tablet = 40 mg, By Mouth, Daily, # 90 tablet, 3 Refills, Maintenance, 04/22/20 13:08:00 EST, Tablet, [facility] #[id number], 168, cm, 04/22/20 12:49:00 EST, Height, 63.5, [...] 04/22/20 13:38:00 EST, Route to Pharmacy Electronically, [facility] #[id number], Partial fill upon patient request, 168, cm, [...] 5 Refills, Maintenance, 04/22/20 13:08:00 EST, Tablet, [facility] #79855, 1 tablet By Mouth Daily,x30 days, 168, cm, 04/22/20 12:49:00 EST, Height, 63.5, kg, 08/07/19 9:46:00 EDT, Dry Weight Start Date: 04/22/20 Stop Date: 10/19/20 Status: Ordered omeprazole 40 mg oral enteric coated capsule 1 capsule = 40 mg, By Mouth, Daily, # 30 capsule, 10 Refills, Maintenance, 04/22/20 13:08:00 EST, EC Capsule, [facility] #84183, 168, cm, 04/22/20 12:49:00 EST, Height, 63.5, [...] tablet, 0 Refills, Maintenance, 05/03/20 16:00:00 EST, [facility] #12957, Partial fill upon patient request if the prescription is for a schedule II opioid... Start Date: 05/03/20 Status: Ordered ProAir HFA 90 mcg/inh inhalation aerosol with adapter 2, puffs, Inhalation, Every 6 hours, PRN, # 8.5 Gm, Refills 2, Tot. Refills 2, Maintenance, 04/22/20 13:08:00 EST, Aerosol, Route to Pharmacy Electronically, [id number], [facility] #65514, 168, cm, 04/22/20 12:49:00... Start Date: 04/22/20 Status: Ordered tamsulosin 0.4 mg oral capsule 0.4 mg, 1, capsule, By Mouth, Daily, PER BELL HODGES, # 90 capsule, Refills 1, Tot. Refills 1, Maintenance, 04/29/20 16:06:00 EST, Route to Pharmacy Electronically, [facility] #[id number],Partial fill upon patient request, 168, cm, ... Start Date: 04/29/20 Status: Ordered tiZANidine 4 mg oral capsule 2 capsule = 8 mg, By Mouth, 3 times a day, 0 Refills, Maintenance, 10/13/19 10:32:00 EDT Start Date: 10/13/19 Status: Ordered traZODone 150 mg oral tablet 1 tablet, By Mouth, Daily at bedtime, PRN NEEDED FOR SLEEP, # 30 tablet, 5 Refills, Maintenance,04/22/20 13:08:00 EST, [facility] #[id number], 168, cm, 04/22/20 12:49:00 EST, Height, 63.5, [...] 2019. 2Repeat EGD in 07/2020 for surveillance 17528; repeat 2019 4R shoulder 2018 5Dr. Jimbo (ENT surgeons) Social History Social History Type Response Smoking Status Current every day herve toney entered on: 12/17/15 Sex
--- OUTSIDE RECORDS SUMMARY | 2022-12-14 11:02 | XMS_ITS | Continuity of Care Document ---
Author Name Unknown Organization [facility] Address Unknown Care Team Providers Care Mergers And Acquisitions Banker Name Role Phone Casey Suarez MD Primary Care Physician En[place] [facility] [place] Date(s): 01/01/22 - 01/08/22 [facility] Attending Physician: Devin Burleson Referring Physician: Casey [...] Parent Or Guardian Refuses 1Result Comment: [facility]# [address] [id number] 2Result Comment: Pt tolerated well. [facility] #[id number] 3Location History: [facility] 4Result Comment: [05/06/2017] [facility]:8518-7587-09 Medications aspirin 81 mg oral delayed release tablet 1 tablet, By Mouth, Daily, # 90 tablet, 0 Refills, [facility] #[id number], 167.6, cm, 228:27:00 EDT, Height, 63.6, kg, 09/22/21 9:54:00 EDT, Dry Weight Start Date: 01/08/22 Status: Ordered atorvastatin 80 mg oral tablet 1 tablet = 80 mg, By Mouth, Daily at bedtime, # 90 tablet, 3 Refills, Maintenance, 08/14/21 15:28:00 EDT, Tablet, [facility] #[id number], 167.64, cm, 08/14/21 15:12:00 EDT, Height, 63.64, kg, 10/30/20 11:22:00 EDT, Dry Weight Start Date: 08/14/21 Stop Date: 08/09/22 Status: Ordered clopidogrel 75 mg oral tablet 75 mg, 1, tablet, By Mouth, Daily, # 30 tablet, Refills 11, Tot. Refills 11, Maintenance, 12/09/20 17:12:00 EDT, Route to Pharmacy Electronically, [facility] #[id number], Partial fill upon patient request if the prescription is for a schedule II... Start Date: 12/09/20 Status: Ordered EpiPen 2-Sameer 0.3 mg injectable kit = 0.3 mg, Intramuscular, Once, Must go to hospital if used, # 1 each, 1 Refills, Soft Stop, 01/09/21 14:45:00 EDT, [facility] #[id number], 167.64, cm, 01/09/21 14:27:00 EDT, Height, 63.64, kg, 10/30/20 11:22:00 EDT, Dry Weight Start Date: 01/09/21 Status: Ordered gabapentin 300 mg oral capsule 600 mg, 2, capsule, By Mouth, 2 times a day, # 120 capsule, Refills 0, Tot. Refills 0, Maintenance,01/08/22 8:39:00 EDT, Route to Pharmacy Electronically, [facility] #[id number], Partial fill upon patient request, 167.6, cm, [...] Mouth, Daily, # 90 tablet, 1 Refills, [facility] #13892, 167.6, cm, :54:00 EDT, Height, 63.6, kg, 09/22/21 9:54:00 EDT, Dry Weight Start Date: 10/06/21 Status: Ordered multivitamin Multiple Vitamins oral tablet 1 tablet, By Mouth, Daily, # 90 tablet, 1 Refills, [facility] #56228, 90, TAKE 1 TABLET BY MOUTH DAILY, 167.64, cm, 04/21/21 13:13:00 EST, Height, 63.64, kg, 10/30/20 11:22:00 EDT, Dry Weight Start Date: 07/10/21 Status: Ordered Nutritional Supplements See Instructions, # 90 each, Refills 11, Tot. Refills 11, Maintenance, High Protein Ensure Use TID DX Pancreatitis, Weight Loss ICD 10 K85.90 R63.4 3 [place] 3 Vanilla Height 5'6 Weight 130lbs, 12/20/20 7:33:00 EDT, Supply Start Date: 12/20/20 Status: Ordered omeprazole 40 mg oral enteric coated capsule 1 capsule, By Mouth, Daily, # 30 capsule, 2 Refills, [facility] #45151, 167.6, cm, 11/06/21 15:13:00 EDT, Height, 63.6, kg, 09/22/21 9:54:00 EDT, Dry Weight Start Date: 12/10/21 Status: Ordered PEG-3350 with Electrolytes (Eqv-GoLYTELY) oral powder for reconstitution See Instructions, 1 glass every 15-30 minutes until finished, # 4,000 mL, 0 Refills, Maintenance, 08/26/20 16:28:00 EDT, [facility] #39881, Partial fill upon patient request if the prescription is for a schedule II opioid drug., 1 glass ever... Start Date: 08/26/20 Status: Ordered ProAir HFA 90 mcg/inh inhalation aerosol with adapter 2, puffs, Inhalation, Every 6 hours, PRN, # 8.5 Gm, Refills 5, Tot. Refills 5, Maintenance, 07/04/20 8:18:00 EST, Aerosol, Route to Pharmacy Electronically, [id number], [facility] #54796, 168, cm, 06/14/20 10:38:00... Start Date: 07/04/20 [...] capsule, Refills 1, Route to Pharmacy Electronically, [facility] #[id number], 167.6, cm, 09/22/21 9:54:00 EDT, Height, 63.6, [...] FOR SLEEP, # 90 tablet, 1 Refills, [facility] #21360, 167.6, cm, 09/22/21 9:54:00 EDT, Height, 63.6, [...] 2018. 2Repeat EGD in 07/2020 for surveillance 57528; repeat 2019 4R shoulder 2017 5DrShabnam Choi (ENT surgeons) Vital Signs Most recent to oldest [Reference Range]: 1 Height 167.6 cm (01/01/22 1:11 PM) Weight 55.6 kg (01/01/22 1:11 PM) Pulse Rate [55-90 bpm] 48 bpm *L* (01/01/22 1:11 PM) Body Mass Index [18.5-24.99] 19.79 (01/01/22 1:11 PM) Blood Pressure [90-138/55-84 mm Hg] 115/ 66mm Hg (01/01/22 1:11 PM) Temperature [96.8-100.4 DegF] 98.0 DegF (01/01/22 1:11 PM) Blood pressure sites Arm, left (01/01/22 1:11 PM) Temperature Route Temporal (01/01/22 1:11 PM) Weight Obtained Via Standing scale (01/01/22 1:11 PM) Social History Social History Type Response Smoking Status Current every day herve toney entered on: 12/17/15 Sex
--- OUTSIDE RECORDS SUMMARY | 2022-12-14 11:03 | XMS_ITS | Continuity of Care Document ---
Author Name Unknown Organization [facility] Address [address] [place] [address] [address] [place] [address]- Care Team Providers Care Service Writer Name Role Phone Casey Suarez MD Primary Care Physician Encounter [facility] Date(s): 12/04/20 - 01/03/[address] [place] [address]- Attending Physician: AdmAna aguiar Admitting Physician: AdmtrAna Referring Physician: Admtr, Ar8 [...] Refuses 1Result Comment: Pt tolerated well. [facility] #[id number] 2Location History: [facility] 3Result Comment: [05/06/2017] [facility]:2021-2001-00 Medications amiodarone 200 mg oral tablet 200 mg, 1, tablet, By Mouth, 2 times a day, # 60 tablet, Refills 0, Tot. Refills 0, Maintenance, 11/13/20 9:34:00 EDT, Route to Pharmacy Electronically, [facility], Partial fill upon patient request if the prescription is for a schedule... Start Date: 11/13/20 Status: Ordered aspirin 81 mg oral delayed release tablet 81 mg, 1, tablet, By Mouth, Daily, Future refills to come from cardiology or PCP, # 30 tablet, Refills 0, Tot. Refills 0, Maintenance, 12/13/20 9:32:00 EDT, Route to Pharmacy Electronically, [facility] #[id number], Partial fill upon patient reque... Start Date: 12/13/20 Stop Date: 01/12/21 Status: Ordered atorvastatin 80 mg oral tablet 1 tablet = 80 mg, By Mouth, Daily at bedtime, # 90 tablet, 4 Refills, Maintenance, 02/07/21 10:28:00 EDT, Tablet, [facility] #23049, Partial fill upon patient request if the prescription isfor a schedule II opioid drug., 167.64, cm, ... Start Date: 02/07/21 Stop Date: 05/03/22 Status: Ordered atorvastatin 80 mg oral tablet 1 tablet = 80 mg, By Mouth, Daily at bedtime, for 30 days, # 30 tablet, 1 Refills, Hard Stop 02/07/21 10:28:00 EDT, 12/09/20 10:28:00 EDT, Tablet, [facility] #[id number], Partial fill upon patient request if the prescription is for a schedule II... Start Date: 12/09/20 Stop Date: 02/07/21 Status: Ordered clopidogrel 75 mg oral tablet 75 mg, 1, tablet, By Mouth, Daily, # 30 tablet, Refills 11, Tot. Refills 11, Maintenance, 12/09/20 17:12:00 EDT, Route to Pharmacy Electronically, [facility] #[id number], Partial fill upon patient request if the prescription is for a schedule II... Start Date: 12/09/20 Status: Ordered docusate sodium 100 mg oral tablet = 100 mg, By Mouth, 2 times a day, # 6 tablet, 0 Refills, Maintenance, 11/13/20 9:34:00 EDT, Tablet, [facility], Partial fill upon patient request [...] 11/13/20 9:32:00 EDT, Route to Pharmacy Electronically, [facility], Partial fill upon patient request, [...] Maintenance, 12/13/20 9:33:00 EDT, Route to Pharmacy Electronically,[facility] #08172, Metoprolol tartrate ta... Start Date: 12/13/20 Stop Date: 01/12/21 Status: Ordered multivitamin Multiple Vitamins oral tablet 1 tablet, By Mouth, Daily, # 30 tablet, 0 Refills, Maintenance, 12/09/20 17:12:00 EDT, Tablet, [facility] #39959, 1 tablet By Mouth Daily, 167.64, cm, 11/22/20 15:34:00 EDT, Height, 63.64, kg, 10/30/20 11:22:00 EDT, Dry Weight Start Date: 12/09/20 Stop Date: 06/07/21 Status: Ordered Nutritional Supplements See Instructions, # 90 each, Refills 11, Tot. Refills 11, Maintenance, High Protein Ensure Use TID DX Pancreatitis, Weight Loss ICD 10 K85.90 R63.4 3 [place] 3 Vanilla Height 5'6 Weight 130lbs, 12/20/20 7:33:00 EDT, Supply Start Date: 12/20/20 Status: Ordered omeprazole 40 mg oral enteric coated capsule 1 capsule = 40 mg, By Mouth, Daily, # 30 capsule, 10 Refills, Maintenance, 04/22/20 13:08:00 EST, EC Capsule, [facility] #21449, 168, cm, 04/22/20 12:49:00 EST, Height, 63.5, [...] mL, 0 Refills, Maintenance, 08/26/20 16:28:00 EDT, [facility] #44685, Partial fill upon patient request if the prescription is for a schedule II opioid drug., 1 glass ever... Start Date: 08/26/20 Status: Ordered ProAir HFA 90 mcg/inh inhalation aerosol with adapter 2, puffs, Inhalation, Every 6 hours, PRN, # 8.5 Gm, Refills 5, Tot. Refills 5, Maintenance, 07/04/20 8:18:00 EST, Aerosol, Route to Pharmacy Electronically, [id number], [facility] #93019, 168, cm, 06/14/20 10:38:00... Start Date: 07/04/20 [...] 10/16/20 8:15:00 EDT, Route to Pharmacy Electronically, [facility] #[id number], Partial fill upon patient request, 168, cm, 10/16/20... Start Date: 10/16/20 Status: Ordered teds stockings teds stockings, See Instructions, # 1 each, Refills 0, Tot. Refills 0, Maintenance, teds stockings 1 pair use as directed dx deep veing thrombosis icd 10 I 82.503 length of need lifetime 130lbs ht 5'6, 12/27/20 13:07:00 EDT, Supply Start Date: 12/27/20 Status: Ordered traZODone 150 mg oral tablet 1 tablet, By Mouth, Daily at bedtime, PRN NEEDED FOR SLEEP, # 90 tablet, 1 Refills, Maintenance,10/16/20 8:15:00 EDT, [facility] #26913, 168, cm, 10/16/20 7:49:00 EDT, Height, 60, [...] 2019. 2Repeat EGD in 07/2020 for surveillance 68535; repeat 2019 4R shoulder 2018 5DrShabnam Choi (ENT surgeons) Social History Social History Type Response Smoking Status Current every day herve toney entered on: 12/17/15 Sex
--- OUTSIDE RECORDS SUMMARY | 2022-12-14 11:03 | XMS_ITS | Continuity of Care Document ---
Author Name Unknown Organization [facility] Address [address] [place] [address]- Care Team Providers Care High School Band Teacher Name Role Phone Casey Suarez MD Primary Care Physician Encounter [facility] Date(s): 06/20/21 - 06/27/21 [facility] [address] [place] [address]- Attending Physician: Not on Staff, Attending MD Referring Physician: Casey Suarez MD Allergies, Adverse Reactions, Alerts Substance Reaction Severity Status amoxicillin heart racing Active Augmentin swelling of throat, diff breath, rash Active Bee Stings anaphylactic Active acetaminophen-codeine ANAPHYLAXSIS Active Immunizations Given and [...] 1Result Comment: [facility]# [address] 16246-817-21 2Result Comment: Pt tolerated well. [facility] #[id number] 3Location History: [facility] 4Result Comment: [05/06/2017] [facility]:0174-0620-03 Medications aspirin 81 mg oral delayed release tablet 81 mg, 1, tablet, By Mouth, Daily, # 90 tablet, Refills 1, Tot. Refills 1, Maintenance, 01/09/21 14:52:00 EDT, Route to Pharmacy Electronically, [facility] #56673, Partial fill upon patientrequest if the prescription is for a schedule II op... Start Date: 01/09/21 Status: Ordered atorvastatin 80 mg oral tablet 1 tablet = 80 mg, By Mouth, Daily at bedtime, # 90 tablet, 3 Refills, Maintenance, 02/12/21 10:54:00 EDT, Tablet, [facility] #23615, 167.64, cm, 01/13/21 9:46:00 EDT, Height, 63.64, kg, 10/30/20 11:22:00 EDT, Dry Weight Start Date: 02/12/21 Stop Date: 02/07/22 Status: Ordered Bactrim DS 800 mg-160 mg oral tablet 1 tablet, By Mouth, 2 times a day, for 10 days, # 20 tablet, 0 Refills, Acute 06/30/21 17:34:00 EST, 06/20/21 17:34:00 EST, Tablet, [facility] #[id number], Partial fill upon patient request if the prescription is for a schedule II opioid drug., 1... Start Date: 06/20/21 Stop Date: 06/30/21 Status: Ordered clopidogrel 75 mg oral tablet 75 mg, 1, tablet, By Mouth, Daily, # 30 tablet, Refills 11, Tot. Refills 11, Maintenance, 12/09/20 17:12:00 EDT, Route to Pharmacy Electronically, [facility] #[id number], Partial fill upon patient request if the prescription is for a schedule II... Start Date: 12/09/20 Status: Ordered EpiPen 2-Sameer 0.3 mg injectable kit = 0.3 mg, Intramuscular, Once, Must go to hospital if used, # 1 each, 1 Refills, Soft Stop, 01/09/21 14:45:00 EDT, [facility] #51540, 167.64, cm, 01/09/21 14:27:00 EDT, Height, 63.64, [...] 01/13/21 9:59:00 EDT, Route to Pharmacy Electronically, [facility] #71384, Partial fill upon patient request if the prescription is for a schedule II opi... Start Date: 01/13/21 Status: Ordered multivitamin Multiple Vitamins oral tablet 1 tablet, By Mouth, Daily, # 90 tablet, 1 Refills, Maintenance, 01/09/21 14:44:00 EDT, Tablet, [facility] #54720, 1 tablet By Mouth Daily, 167.64, cm, 01/09/21 14:27:00 EDT, Height, 63.64, kg, 10/30/20 11:22:00 EDT, Dry Weight Start Date: 01/09/21 Status: Ordered Nutritional Supplements See Instructions, # 90 each, Refills 11, Tot. Refills 11, Maintenance, High Protein Ensure Use TID DX Pancreatitis, Weight Loss ICD 10 K85.90 R63.4 3 [place] 3 Vanilla Height 5'6 Weight 130lbs, 12/20/20 7:33:00 EDT, Supply Start Date: 12/20/20 Status: Ordered omeprazole 40 mg oral enteric coated capsule 1 capsule = 40 mg, By Mouth, Daily, # 30 capsule, 2 Refills, Maintenance, 01/14/21 14:05:00 EDT, ECCapsule, [facility] #78928, 167.64, cm, 01/13/21 9:46:00 EDT, Height, 63.64, kg, 10/30/2110:22:00 EDT, Dry Weight Start Date: 01/14/21 Stop Date: 04/14/21 Status: Ordered PEG-3350 with Electrolytes (Eqv-GoLYTELY) oral powder for reconstitution See Instructions, 1 glass every 15-30 minutes until finished, # 4,000 mL, 0 Refills, Maintenance, 08/26/20 16:28:00 EDT, [facility] #66415, Partial fill upon patient request if the prescription is for a schedule II opioid drug., 1 glass ever... Start Date: 08/26/20 Status: Ordered ProAir HFA 90 mcg/inh inhalation aerosol with adapter 2, puffs, Inhalation, Every 6 hours, PRN, # 8.5 Gm, Refills 5, Tot. Refills 5, Maintenance, 07/04/20 8:18:00 EST, Aerosol, Route to Pharmacy Electronically, [id number], [facility] #[id number], 168, cm, 06/14/20 10:38:00... Start Date: 07/04/20 [...] capsule, Refills 1, Route to Pharmacy Electronically, [facility] #[id number], 167.64, cm, 03/20/21 8:49:00 EDT, Height, 63.64, [...] FOR SLEEP, # 90 tablet, 1 Refills, [facility] #[id number], 167.64, cm, 03/20/21 8:49:00 EDT, Height, 63.64, [...] 2019. 2Repeat EGD in 07/2020 for surveillance 33800; repeat 2019 4R shoulder 2018 5Dr. Jimbo (ENT surgeons) Social History Social History Type Response Smoking Status Current every day herve toney entered on: 12/17/15 Sex
--- OUTSIDE RECORDS SUMMARY | 2022-12-14 11:03 | XMS_ITS | Continuity of Care Document ---
Author Name Unknown Organization [facility] Address [address] [place] [address]- Care Team Providers Care Learning And Development Specialist Name Role Phone Casey Suarez MD Primary Care Physician [phone] [place] [facility] [place]18[place] 10/18/20 [facility] [address] [place] [address]- Allergies, Adverse Reactions, Alerts Substance Reaction Severity [...] Guardian Refuses 1Result Comment: Pt tolerated well. [facility] #[id number] 2Location History: [place] 3Result Comment: [05/06/2017] [facility]:1686-6771-64 Medications aspirin 81 mg oral delayed release [...] Formula TID DX Pancreatitis Weight Loss 3 [place] 1 Vanilla, 08/28/20 7:45:00 EDT, Compound Start [...] 04/22/20 13:38:00 EST, Route to Pharmacy Electronically, [facility] #[id number], Partial fill upon patient request, 168, cm, 04/22/20 12:49:00 EST,... Start Date: 04/22/20 Status: Ordered isosorbide mononitrate 30 mg oral tablet, extended release See Instructions, 1/2 tablet By Mouth Daily in AM 30 days, # 15 tablet, Refills 3, Tot. Refills 3, Maintenance, 10/07/20 15:26:00 EDT, Instructions Replace Required Details, Route to Pharmacy Electronically, [facility] #[id number], Partial fill u... Start Date: 10/07/20 Status: Ordered metoprolol 50 mg oral tablet, extended release 50 mg, 1, tablet, By Mouth, Daily, # 30 tablet, Refills 3, Tot. Refills 3, Maintenance, 10/16/20 13:19:00 EDT, Route to Pharmacy Electronically, [facility] #[id number], Partial fill upon patientrequest if the prescription is for a schedule II op... Start Date: 10/16/20 Stop Date: 02/13/21 Status: Ordered multivitamin Multiple Vitamins oral tablet 1 tablet, By Mouth, Daily, # 30 tablet, 5 Refills, Maintenance, 04/22/20 13:08:00 EST, Tablet, [facility] #55726, 1 tablet By Mouth Daily,x30 days, 168, cm, 04/22/20 12:49:00 EST, Height, 63.5, kg, 08/07/19 9:46:00 EDT, Dry Weight Start Date: 04/22/20 Stop Date: 10/19/20 Status: Ordered omeprazole 40 mg oral enteric coated capsule 1 capsule = 40 mg, By Mouth, Daily, # 30 capsule, 10 Refills, Maintenance, 04/22/20 13:08:00 EST, EC Capsule, [facility] #[id number], 168, cm, 04/22/20 12:49:00 EST, Height, 63.5, [...] mL, 0 Refills, Maintenance, 08/26/20 16:28:00 EDT, [facility] #98016, Partial fill upon patient request if the prescription is for a schedule II opioid drug., 1 glass ever... Start Date: 08/26/20 Status: Ordered ProAir HFA 90 mcg/inh inhalation aerosol with adapter 2, puffs, Inhalation, Every 6 hours, PRN, # 8.5 Gm, Refills 5, Tot. Refills 5, Maintenance, 07/04/20 8:18:00 EST, Aerosol, Route to Pharmacy Electronically, [id number], [facility] #69497, 168, cm, 06/14/20 10:38:00... Start Date: 07/04/20 Status: Ordered tamsulosin 0.4 mg oral capsule 0.4 mg, 1, capsule, By Mouth, Daily, PER BELL HODGES, # 90 capsule, Refills 1, Tot. Refills 1, Maintenance, 10/16/20 8:15:00 EDT, Route to Pharmacy Electronically, [facility] #[id number], Partial fill upon patient request, 168, cm, 10/16/20... Start Date: 10/16/20 Status: Ordered traZODone 150 mg oral tablet 1 tablet, By Mouth, Daily at bedtime, PRN NEEDED FOR SLEEP, # 90 tablet, 1 Refills, Maintenance,10/16/20 8:15:00 EDT, [facility] #40681, 168, cm, 10/16/20 7:49:00 EDT, Height, 60, [...] 2019. 2Repeat EGD in 07/2020 for surveillance 65298; repeat 2019 4R shoulder 2018 5DrShabnam Choi (ENT surgeons) Social History Social History Type Response Smoking Status Current every day herve toney entered on: 12/17/15 Sex
--- OUTSIDE RECORDS SUMMARY | 2022-12-14 11:03 | XMS_ITS | Continuity of Care Document ---
Author Name Unknown Organization [facility] Address [address] [place] [address]- Care Team Providers Care Telephone Interceptor Operator Name Role Phone Casey Suarez MD Primary Care Physician [phone] Encounter [facility] Date(s): 10/30/21 - 11/29/21 [facility] [address] [place] [address]- Allergies, Adverse Reactions, Alerts Substance Reaction Severity [...] 1Result Comment: [facility]# [address] [facility] [address] [id number] 2Result Comment: Pt tolerated well. [facility] #[id number] 3Location History: [facility] 4Result Comment: [05/06/2017] [facility]:[id number] Medications aspirin 81 mg oral delayed release tablet 1 tablet, By Mouth, Daily, # 90 tablet, 0 Refills, [facility] #41104, 167.6, cm, :54:00 EDT, Height, 63.6, kg, 09/22/21 9:54:00 EDT, Dry Weight Start Date: 10/10/21 Status: Ordered atorvastatin 80 mg oral tablet 1 tablet = 80 mg, By Mouth, Daily at bedtime, # 90 tablet, 3 Refills, Maintenance, 08/14/21 15:28:00 EDT, Tablet, [facility] #[id number], 167.64, cm, 08/14/21 15:12:00 EDT, Height, 63.64, kg, 10/30/20 11:22:00 EDT, Dry Weight Start Date: 08/14/21 Stop Date: 08/09/22 Status: Ordered clopidogrel 75 mg oral tablet 75 mg, 1, tablet, By Mouth, Daily, # 30 tablet, Refills 11, Tot. Refills 11, Maintenance, 12/09/20 17:12:00 EDT, Route to Pharmacy Electronically, [facility] #[id number], Partial fill upon patient request if the prescription is for a schedule II... Start Date: 12/09/20 Status: Ordered EpiPen 2-Sameer 0.3 mg injectable kit = 0.3 mg, Intramuscular, Once, Must go to hospital if used, # 1 each, 1 Refills, Soft Stop, 01/09/21 14:45:00 EDT, [facility] #[id number], 167.64, cm, 01/09/21 14:27:00 EDT, Height, 63.64, [...] Mouth, Daily, # 90 tablet, 1 Refills, [facility] #[id number], 167.6, cm, :54:00 EDT, Height, 63.6, kg, 09/22/21 9:54:00 EDT, Dry Weight Start Date: 10/06/21 Status: Ordered multivitamin Multiple Vitamins oral tablet 1 tablet, By Mouth, Daily, # 90 tablet, 1 Refills, [facility] #[id number], 90, TAKE 1 TABLET BY MOUTH DAILY, 167.64, cm, 04/21/21 13:13:00 EST, Height, 63.64, kg, 10/30/20 11:22:00 EDT, Dry Weight Start Date: 07/10/21 Status: Ordered Nutritional Supplements See Instructions, # 90 each, Refills 11, Tot. Refills 11, Maintenance, High Protein Ensure Use TID DX Pancreatitis, Weight Loss ICD 10 K85.90 R63.4 3 [place] 3 Vanilla Height 5'6 Weight 130lbs, 12/20/20 7:33:00 EDT, Supply Start Date: 12/20/20 Status: Ordered omeprazole 40 mg oral enteric coated capsule 1 capsule = 40 mg, By Mouth, Daily, # 30 capsule, 2 Refills, Maintenance, 09/10/21 14:25:00 EDT, ECCapsule, [facility] #26763, 167.64, cm, 09/01/21 8:31:00 EDT, Height, 63.64, kg, 10/30/2110:22:00 EDT, Dry Weight Start Date: 09/10/21 Stop Date: 12/09/21 Status: Ordered Paxlovid 150 mg-100 mg oral tablet See Instructions, follow package instructions, not renally impaired, # 30 tablet, 0 Refills, Maintenance, 09/23/21 15:45:00 EDT, [email or web address] #43147, Partial fill upon patient request if the prescription is for a schedule II opioid drug., foll... Start Date: 09/23/21 Status: Ordered PEG-3350 with Electrolytes (Eqv-GoLYTELY) oral powder for reconstitution See Instructions, 1 glass every 15-30 minutes until finished, # 4,000 mL, 0 Refills, Maintenance, 08/26/20 16:28:00 EDT, [email or web address] #84852, Partial fill upon patient request if the prescription is for a schedule II opioid drug., 1 glass ever... Start Date: 08/26/20 Status: Ordered ProAir HFA 90 mcg/inh inhalation aerosol with adapter 2, puffs, Inhalation, Every 6 hours, PRN, # 8.5 Gm, Refills 5, Tot. Refills 5, Maintenance, 07/04/20 8:18:00 EST, Aerosol, Route to Pharmacy Electronically, [id number], [facility] #[id number], 168, cm, 06/14/20 10:38:00... Start Date: 07/04/20 [...] capsule, Refills 1, Route to Pharmacy Electronically, [facility] #72200, 167.6, cm, 09/22/21 9:54:00 EDT, Height, 63.6, [...] FOR SLEEP, # 90 tablet, 1 Refills, [facility] #45035, 167.6, cm, 09/22/21 9:54:00 EDT, Height, 63.6, [...] 2018. 2Repeat EGD in 07/2020 for surveillance 32308; repeat 2019 4R shoulder 2018 5DrShabnam Choi (ENT surgeons) Social History Social History Type Response Smoking Status Current every day herve toney entered on: 12/17/15 Sex
--- OUTSIDE RECORDS SUMMARY | 2022-12-14 11:03 | XMS_ITS | Continuity of Care Document ---
Author Name Unknown Organization [facility] [place] Address [address] [place] [address]- Care Team Providers Care Peoplesoft Functional Analyst Name Role Phone Daniela BROWN, Casey Jiménez Primary Care Physician [facility] Date[facility]s): 06[facility]21 - 07/13/21 [facility] Adult [address] [place] [address]- Allergies, Adverse Reactions, Alerts Substance Reaction Severity [...] 1Result Comment: [facility]# [address] [phone] 2Result Comment: Pt tolerated well. [facility] #31426-302-56 3Location History: [facility] 4Result Comment: [05/06/2017] [facility]:3047-1623-98 Medications aspirin 81 mg oral delayed release tablet 1 tablet, By Mouth, Daily, # 90 tablet, 0 Refills, [facility] #32458, 167.64, cm, 04/21/21 13:13:00 EST, Height, 63.64, kg, 10/30/20 11:22:00 EDT, Dry Weight Start Date: 07/11/21 Status: Ordered atorvastatin 80 mg oral tablet 1 tablet = 80 mg, By Mouth, Daily at bedtime, # 90 tablet, 3 Refills, Maintenance, 02/12/21 10:54:00 EDT, Tablet, [facility] #61673, 167.64, cm, 01/13/21 9:46:00 EDT, Height, 63.64, kg, 10/30/20 11:22:00 EDT, Dry Weight Start Date: 02/12/21 Stop Date: 02/07/22 Status: Ordered clopidogrel 75 mg oral tablet 75 mg, 1, tablet, By Mouth, Daily, # 30 tablet, Refills 11, Tot. Refills 11, Maintenance, 12/09/20 17:12:00 EDT, Route to Pharmacy Electronically, [facility] #11706, Partial fill upon patient request if the prescription is for a schedule II... Start Date: 12/09/20 Status: Ordered EpiPen 2-Sameer 0.3 mg injectable kit = 0.3 mg, Intramuscular, Once, Must go to hospital if used, # 1 each, 1 Refills, Soft Stop, 01/09/21 14:45:00 EDT, [facility] #28756, 167.64, cm, 01/09/21 14:27:00 EDT, Height, 63.64, [...] 01/13/21 9:59:00 EDT, Route to Pharmacy Electronically, [facility] #03254, Partial fill upon patient request if the prescription is for a schedule II opi... Start Date: 01/13/21 Status: Ordered multivitamin Multiple Vitamins oral tablet 1 tablet, By Mouth, Daily, # 90 tablet, 1 Refills, [facility] #70101, 90, TAKE 1 TABLET BY MOUTH DAILY, 167.64, cm, 04/21/21 13:13:00 EST, Height, 63.64, kg, 10/30/20 11:22:00 EDT, Dry Weight Start Date: 07/10/21 Status: Ordered Nutritional Supplements See Instructions, # 90 each, Refills 11, Tot. Refills 11, Maintenance, High Protein Ensure Use TID DX Pancreatitis, Weight Loss ICD 10 K85.90 R63.4 3 [place] 3 Vanilla Height 5'6 Weight 130lbs, 12/20/20 7:33:00 EDT, Supply Start Date: 12/20/20 Status: Ordered omeprazole 40 mg oral enteric coated capsule 1 capsule = 40 mg, By Mouth, Daily, # 30 capsule, 2 Refills, Maintenance, 01/14/21 14:05:00 EDT, ECCapsule, [facility] #[id number], 167.64, cm, 01/13/21 9:46:00 EDT, Height, 63.64, kg, 10/30/2110:22:00 EDT, Dry Weight Start Date: 01/14/21 Stop Date: 04/14/21 Status: Ordered PEG-3350 with Electrolytes (Eqv-GoLYTELY) oral powder for reconstitution See Instructions, 1 glass every 15-30 minutes until finished, # 4,000 mL, 0 Refills, Maintenance, 08/26/20 16:28:00 EDT, [facility] #27769, Partial fill upon patient request if the prescription is for a schedule II opioid drug., 1 glass ever... Start Date: 08/26/20 Status: Ordered ProAir HFA 90 mcg/inh inhalation aerosol with adapter 2, puffs, Inhalation, Every 6 hours, PRN, # 8.5 Gm, Refills 5, Tot. Refills 5, Maintenance, 07/04/20 8:18:00 EST, Aerosol, Route to Pharmacy Electronically, [id number], [facility] #49720, 168, cm, 06/14/20 10:38:00... Start Date: 07/04/20 [...] capsule, Refills 1, Route to Pharmacy Electronically, [facility] #[id number], 167.64, cm, 03/20/21 8:49:00 EDT, Height, 63.64, [...] FOR SLEEP, # 90 tablet, 1 Refills, [facility] #02689, 167.64, cm, 03/20/21 8:49:00 EDT, Height, 63.64, [...] 2019. 2Repeat EGD in 07/2020 for surveillance 58398; repeat 2019 4R shoulder [address] 5Dr. Jimbo (ENT surgeons) Social History Social History Type Response Smoking Status Current every day herve toney entered on: 12/17/15 Sex
--- OUTSIDE RECORDS SUMMARY | 2022-12-14 11:03 | XMS_ITS | Continuity of Care Document ---
Author Name Unknown Organization [facility] [place] Address [address] [place] [address]- Care Team Providers Care Applications Scientist Name Role Phone Casey Suarez MD Primary Care Physician [facility] Date[facility]s): 05/26/19 - 06/02/19 [facility] Adult [address] [place] [address]- [facility] Attending Physician: Not on Staff, Attending [...] tolerated well. [facility] #62091-232-61 2Location History: [facility] 3Result Comment: [05/06/2017] [facility]:9123-6262-98 Medications albuterol 0.083% inhalation solution 3 mL = 2.5 mg, Inhalation, Every 6 hours, # 120 each, 2 Refills, Maintenance, 07/18/18 13:46:17 EST, Solution Start Date: 07/18/18 Status: Ordered aspirin 325 mg oral tablet 325 mg, 1, tablet, By Mouth, Daily, # 90 tablet, Refills 1, Tot. Refills 1, Maintenance, 05/19/19 9:23:00 EST, Route to Pharmacy Electronically, [facility] #75457, 168, cm, 05/19/19 8:56:00EST, Height, 57.4, kg, [...] 05/04/19 14:51:08 EST, Route to Pharmacy Electronically, [id number], [facility] #[id number], 168, cm, 05/02/19 8:32:30... Start Date: 05/04/19 Stop Date: 09/01/19 Status: Ordered gabapentin 300 mg oral capsule See Instructions, TAKE 1 CAPSULE BY MOUTH THREE TIMES DAILY, # 90 capsule, Refills 1, Tot. Refills 1, Soft Stop, 04/06/19 11:37:38 EST, Instructions Replace Required Details, Route to Pharmacy Electronically, [id number], [facility]. Start Date: 04/06/19 Status: Ordered lisinopril 10 mg oral tablet See Instructions, TAKE 1 TABLET BY MOUTH EVERY DAY, # 30 tablet, Refills 2, Tot. Refills 2, Soft Stop, 05/22/19 16:32:00 EST, Instructions Replace Required Details, Route to Pharmacy Electronically, [facility] #[id number], 168, cm, 05/19/19 8:56:... Start Date: 05/22/19 [...] TAKE 1 TABLET BY MOUTH TWICE DAILY, [facility] #[id number] Start Date: 02/27/19 Status: Ordered oxyCODONE 5 [...] 11:41:14 EST, Aerosol, Route to Pharmacy Electronically, [id number], [facility]/pharmacy #1026 Start Date: 07/22/18 Status: Ordered [...] EVERY NIGHT AT BEDTIME NEEDED FOR SLEEP, [facility] #78568 Start Date: 12/23/18 Status: Ordered Vicodin 5/500 [...] 2019. 2Repeat EGD in 07/2020 for surveillance 85839; repeat 2019 4R shoulder 2018 5DrShabnam Choi (ENT surgeons) Social History Social History Type Response Smoking Status Current every day herve toney entered on: 12/17/15 Sex
--- OUTSIDE RECORDS SUMMARY | 2022-12-14 11:03 | XMS_ITS | Continuity of Care Document ---
Author Name Unknown Organization [facility] [place] Address [address] [place] [address]- Care Team Providers Care Patrol Man Name Role Phone Daniela BROWN, Casey Jiménez Primary Care Physician [facility] Date[facility]s): 06/17/21 - 07/17/21 [facility] Adult [address] [place] [address]- Allergies, Adverse Reactions, Alerts Substance Reaction Severity [...] Guardian Refuses 1Result Comment: [facility]# [address] 42550-628-66 2Result Comment: Pt tolerated well. [facility] #75713-880-69 3Location History: [facility] 4Result Comment: [05/06/2017] [facility]:7120-7882-79 Medications aspirin 81 mg oral delayed release tablet 1 tablet, By Mouth, Daily, # 90 tablet, 0 Refills, [facility] #27548, 167.64, cm, 04/21/21 13:13:00 EST, Height, 63.64, kg, 10/30/20 11:22:00 EDT, Dry Weight Start Date: 07/11/21 Status: Ordered atorvastatin 80 mg oral tablet 1 tablet = 80 mg, By Mouth, Daily at bedtime, # 90 tablet, 3 Refills, Maintenance, 02/12/21 10:54:00 EDT, Tablet, [facility] #[id number], 167.64, cm, 01/13/21 9:46:00 EDT, Height, 63.64, kg, 10/30/20 11:22:00 EDT, Dry Weight Start Date: 02/12/21 Stop Date: 02/07/22 Status: Ordered clopidogrel 75 mg oral tablet 75 mg, 1, tablet, By Mouth, Daily, # 30 tablet, Refills 11, Tot. Refills 11, Maintenance, 12/09/20 17:12:00 EDT, Route to Pharmacy Electronically, [facility] #86938, Partial fill upon patient request if the prescription is for a schedule II... Start Date: 12/09/20 Status: Ordered EpiPen 2-Sameer 0.3 mg injectable kit = 0.3 mg, Intramuscular, Once, Must go to hospital if used, # 1 each, 1 Refills, Soft Stop, 01/09/21 14:45:00 EDT, [facility] #98611, 167.64, cm, 01/09/21 14:27:00 EDT, Height, 63.64, [...] 01/13/21 9:59:00 EDT, Route to Pharmacy Electronically, [facility] #05781, Partial fill upon patient request if the prescription is for a schedule II opi... Start Date: 01/13/21 Status: Ordered multivitamin Multiple Vitamins oral tablet 1 tablet, By Mouth, Daily, # 90 tablet, 1 Refills, [facility] #48296, 90, TAKE 1 TABLET BY MOUTH DAILY, 167.64, cm, 04/21/21 13:13:00 EST, Height, 63.64, kg, 10/30/20 11:22:00 EDT, Dry Weight Start Date: 07/10/21 Status: Ordered Nutritional Supplements See Instructions, # 90 each, Refills 11, Tot. Refills 11, Maintenance, High Protein Ensure Use TID DX Pancreatitis, Weight Loss ICD 10 K85.90 R63.4 3 [place] 3 Vanilla Height 5'6 Weight 130lbs, 12/20/20 7:33:00 EDT, Supply Start Date: 12/20/20 Status: Ordered omeprazole 40 mg oral enteric coated capsule 1 capsule = 40 mg, By Mouth, Daily, # 30 capsule, 2 Refills, Maintenance, 01/14/21 14:05:00 EDT, ECCapsule, [facility] #61644, 167.64, cm, 01/13/21 9:46:00 EDT, Height, 63.64, kg, 10/30/2110:22:00 EDT, Dry Weight Start Date: 01/14/21 Stop Date: 04/14/21 Status: Ordered PEG-3350 with Electrolytes (Eqv-GoLYTELY) oral powder for reconstitution See Instructions, 1 glass every 15-30 minutes until finished, # 4,000 mL, 0 Refills, Maintenance, 08/26/20 16:28:00 EDT, [facility] #73154, Partial fill upon patient request if the prescription is for a schedule II opioid drug., 1 glass ever... Start Date: 08/26/20 Status: Ordered ProAir HFA 90 mcg/inh inhalation aerosol with adapter 2, puffs, Inhalation, Every 6 hours, PRN, # 8.5 Gm, Refills 5, Tot. Refills 5, Maintenance, 07/04/20 8:18:00 EST, Aerosol, Route to Pharmacy Electronically, [id number], [facility] #35723, 168, cm, 06/14/20 10:38:00... Start Date: 07/04/20 [...] capsule, Refills 1, Route to Pharmacy Electronically, [facility] #[id number], 167.64, cm, 03/20/21 8:49:00 EDT, Height, 63.64, [...] FOR SLEEP, # 90 tablet, 1 Refills, [facility] #21783, 167.64, cm, 03/20/21 8:49:00 EDT, Height, 63.64, [...] 2019. 2Repeat EGD in 07/2020 for surveillance 94407; repeat 2019 4R shoulder 2018 5Dr. Jimbo (ENT surgeons) Social History Social History Type Response Smoking Status Current every day herve toney entered on: 12/17/15 Sex
--- OUTSIDE RECORDS SUMMARY | 2022-12-14 11:03 | XMS_ITS | Continuity of Care Document ---
Author Name Unknown Organization [facility] [place] Address [address] [place] [address]- Care Team Providers Care Engineer Exhauster Name Role Phone Casey Suarez MD Primary Care Physician [phone] [place] [facility] [place]13[place] - 03/20/22 [facility] Adult [address] [place] [address]- Attending Physician: Josey OSORIO, Tyra Willis Allergies, [...] en Parent Or Guardian Refuses 1Result Comment: [facility]# 40236-890-18 2Result Comment: [facility]# [address] 06843-450-29 3Result Comment: Pt tolerated well. [facility] #33992-899-29 4Location History: [facility] 5Result Comment: [05/06/2017] [facility]:2059-4989-98 Medications aspirin 81 mg oral delayed release tablet 1 tablet, By Mouth, Daily, # 90 tablet, 0 Refills, [facility] #35034, 167.6, cm, 228:27:00 EDT, Height, 63.6, kg, 09/22/21 9:54:00 EDT, Dry Weight Start Date: 01/08/22 Status: Ordered atorvastatin 80 mg oral tablet 1 tablet, By Mouth, Daily at bedtime, # 90 tablet, 1 Refills, Maintenance, 03/06/22 12:15:00 EDT, [facility] #24568, 167.6, cm, 01/08/22 8:27:00 EDT, Height, 63.6, kg, 09/22/21 9:54:00 EDT,Dry Weight Start Date: 03/06/22 Status: Ordered EpiPen 2-Sameer 0.3 mg injectable kit = 0.3 mg, Intramuscular, Once, Must go to hospital if used, # 1 each, 1 Refills, Soft Stop, 01/09/21 14:45:00 EDT, [facility] #21252, 167.64, cm, 01/09/21 14:27:00 EDT, Height, 63.64, kg, 10/30/20 11:22:00 EDT, Dry Weight Start Date: 01/09/21 Status: Ordered gabapentin 300 mg oral capsule 600 mg, 2, capsule, By Mouth, 2 times a day, # 120 capsule, Refills 0, Tot. Refills 0, Maintenance,03/05/22 13:23:00 EDT, Route to Pharmacy Electronically, [facility] #09734, Partial fill upon patient request, 167.6, cm, 01/08/22 8:27:00 ED... Start Date: 03/05/22 Status: Ordered Large Blood Pressure Cuff Large [...] Weight Loss ICD 10 K85.90 R63.4 3 [place] 3 Vanilla Height 5'6 Weight 130lbs, 12/20/20 7:33:00 EDT, Supply Start Date: 12/20/20 Status: Ordered omeprazole 40 mg oral enteric coated capsule 1 capsule, By Mouth, Daily, # 30 capsule, 2 Refills, 03/05/22 12:01:00 EDT, [facility] #56678, 167.6, cm, 01/08/22 8:27:00 EDT, Height, 63.6, kg, 09/22/21 9:54:00 EDT, Dry Weight Start Date: 03/05/22 Status: Ordered PEG-3350 with Electrolytes (Eqv-GoLYTELY) oral powder for reconstitution See Instructions, 1 glass every 15-30 minutes until finished, # 4,000 mL, 0 Refills, Maintenance, 08/26/20 16:28:00 EDT, [facility] #71161, Partial fill upon patient request if the prescription is for a schedule II opioid drug., 1 glass ever... Start Date: 08/26/20 Status: Ordered ProAir HFA 90 mcg/inh inhalation aerosol with adapter 2, puffs, Inhalation, Every 6 hours, PRN, # 8.5 Gm, Refills 5, Tot. Refills 5, Maintenance, 07/04/20 8:18:00 EST, Aerosol, Route to Pharmacy Electronically, [id number], [email or web address] #81287, 168, cm, 06/14/20 10:38:00... Start Date: 07/04/20 [...] capsule, Refills 1, Route to Pharmacy Electronically, [email or web address] #36771, 167.6, cm, 09/22/21 9:54:00 EDT, Height, 63.6, [...] FOR SLEEP, # 90 tablet, 1 Refills, [facility] #00251, 167.6, cm, 09/22/21 9:54:00 EDT, Height, 63.6, [...] 2018. 2Repeat EGD in 07/2020 for surveillance 71264; repeat 2019 4R shoulder 2018 5DrShabanm Choi (ENT surgeons) Vital Signs Most recent to oldest [Reference Range]: 1 Height 167.6 cm (03/13/22 8:40 AM) Weight 58.1 kg (03/13/22 8:40 AM) Oxygen Saturation [94-100 %] 96 % (03/13/22 8:40 AM) Pulse Rate [55-90 bpm] 46 bpm *L* (03/13/22 8:40 AM) Body Mass Index [18.5-24.99 kg/m2] 20.68 kg/m2 (03/13/22 8:40 AM) Blood Pressure [90-138/55-84 mm Hg] 98/5 0mm Hg (03/13/22 8:40 AM) Respiratory Rate [16-30 br/min] 16 br/mi n (03/13/22 8:40 AM) Mode of Delivery (Oxygen) Room air (03/13/22 8:40 AM) Blood pressure sites Arm, right (03/13/22 8:40 AM) Weight Obtained Via Standing scale (03/13/22 8:40 AM) Social History Social History Type Response Smoking Status 10 or more cigarette s (1/2 pack or more)/day in last 30 days entered on: 03/13/22 Sex Patient Care team information Personnel Name: Daniela BROWN, Casey Jiménez Address: Address: [address] [place] [address]-
--- OUTSIDE RECORDS SUMMARY | 2022-12-14 11:03 | XMS_ITS | Continuity of Care Document ---
Author Name Unknown Organization [facility] [place] Address [address] [place] [address]- Care Team Providers Care Molded Goods Operator Name Role Phone Casey Suarez MD Primary Care Physician [facility] Date[facility]s): 08[facility]08[facility]20 - 09/07/20 [facility] Adult [address] [place] [address]- Allergies, Adverse Reactions, Alerts Substance Reaction Severity [...] Pt tolerated well. [facility] #[id number] 2Location History: [facility] 3Result Comment: [05/06/2017] [facility]:0516-0723-53 Medications Creon 36,000 units oral delayed release capsule 1 capsule, By Mouth, 3 times a day, with each meal, # 90 capsule, 3 Refills, Maintenance, 08/07/19 11:39:00 EDT, [facility] #10378, 1 capsule By Mouth 3 times a day,Instr:with each meal, 168, cm, 08/07/19 9:46:00 EDT, Height, 63.5, kg, 08/06... Start Date: 08/07/19 Status: Ordered ENSURE/VANILLA ENSURE/VANILLA, See Instructions, # 6 pack/packet, Refills 11, Tot. Refills 11, Maintenance, EnsureMax Protein Formula TID DX Pancreatitis Weight Loss 3 [place] 1 Vanilla, 08/28/20 7:45:00 EDT, Compound Start [...] 04/22/20 13:38:00 EST, Route to Pharmacy Electronically, [email or web address] #[id number], Partial fill upon patient request, 168, cm, 04/22/20 12:49:00 EST,... Start Date: 04/22/20 Status: Ordered multivitamin Multiple Vitamins oral tablet 1 tablet, By Mouth, Daily, # 30 tablet, 5 Refills, Maintenance, 04/22/20 13:08:00 EST, Tablet, [email or web address] #78331, 1 tablet By Mouth Daily,x30 days, 168, cm, 04/22/20 12:49:00 EST, Height, 63.5, kg, 08/07/19 9:46:00 EDT, Dry Weight Start Date: 04/22/20 Stop Date: 10/19/20 Status: Ordered omeprazole 40 mg oral enteric coated capsule 1 capsule = 40 mg, By Mouth, Daily, # 30 capsule, 10 Refills, Maintenance, 04/22/20 13:08:00 EST, EC Capsule, [email or web address] #44787, 168, cm, 04/22/20 12:49:00 EST, Height, 63.5, [...] mL, 0 Refills, Maintenance, 08/26/20 16:28:00 EDT, [email or web address] #31218, Partial fill upon patient request if the prescription is for a schedule II opioid drug., 1 glass ever... Start Date: 08/26/20 Status: Ordered ProAir HFA 90 mcg/inh inhalation aerosol with adapter 2, puffs, Inhalation, Every 6 hours, PRN, # 8.5 Gm, Refills 5, Tot. Refills 5, Maintenance, 07/04/20 8:18:00 EST, Aerosol, Route to Pharmacy Electronically, [id number], [email or web address] #68646, 168, cm, 06/14/20 10:38:00... Start Date: 07/04/20 Status: Ordered tamsulosin 0.4 mg oral capsule 0.4 mg, 1, capsule, By Mouth, Daily, PER BELL HODGES, # 90 capsule, Refills 1, Tot. Refills 1, Maintenance, 04/29/20 16:06:00 EST, Route to Pharmacy Electronically, [email or web address] #20055,Partial fill upon patient request, 168, cm, ... Start Date: 04/29/20 Status: Ordered traZODone 150 mg oral tablet 1 tablet, By Mouth, Daily at bedtime, PRN NEEDED FOR SLEEP, # 30 tablet, 5 Refills, Maintenance,04/22/20 13:08:00 EST, [email or web address] #41741, 168, cm, 04/22/20 12:49:00 EST, Height, 63.5, [...] 2019. 2Repeat EGD in 07/2020 for surveillance 56973; repeat 2019 4R shoulder 2018 5DrShabnam Choi (ENT surgeons) Social History Social History Type Response Smoking Status Current every day herve toney entered on: 12/17/15 Sex
--- OUTSIDE RECORDS SUMMARY | 2022-12-14 11:03 | XMS_ITS | Continuity of Care Document ---
Author Name Unknown Organization [facility] Address [address] [place] [address]- Care Team Providers Care Practice Architect Name Role Phone Casey Suarez MD Primary Care Physician Encounter [facility] [place] Date(s): 05/28/21 - 09/13/21 [facility] [address] [place] [address]- Attending Physician: Kathy BROWN, Ashequkamlesh Admitting Physician: Kathy BROWN, Mounika Allergies, Adverse Reactions, Alerts Substance Reaction Severity [...] en Parent Or Guardian Refuses 1Result Comment: [facility]# [address] 95154-174-54 2Result Comment: Pt tolerated well. [facility] #[id number] 3Location History: [facility] 4Result Comment: [05/06/2017] [facility]:3538-9952-66 Medications aspirin 81 mg oral delayed release tablet 1 tablet, By Mouth, Daily, # 90 tablet, 0 Refills, [facility] #78220, 167.64, cm, 04/21/21 13:13:00 EST, Height, 63.64, kg, 10/30/20 11:22:00 EDT, Dry Weight Start Date: 07/11/21 Status: Ordered atorvastatin 80 mg oral tablet 1 tablet = 80 mg, By Mouth, Daily at bedtime, # 90 tablet, 3 Refills, Maintenance, 08/14/21 15:28:00 EDT, Tablet, [facility] #87852, 167.64, cm, 08/14/21 15:12:00 EDT, Height, 63.64, kg, 10/30/20 11:22:00 EDT, Dry Weight Start Date: 08/14/21 Stop Date: 08/09/22 Status: Ordered clopidogrel 75 mg oral tablet 75 mg, 1, tablet, By Mouth, Daily, # 30 tablet, Refills 11, Tot. Refills 11, Maintenance, 12/09/20 17:12:00 EDT, Route to Pharmacy Electronically, [facility] #65370, Partial fill upon patient request if the prescription is for a schedule II... Start Date: 12/09/20 Status: Ordered EpiPen 2-Sameer 0.3 mg injectable kit = 0.3 mg, Intramuscular, Once, Must go to hospital if used, # 1 each, 1 Refills, Soft Stop, 01/09/21 14:45:00 EDT, [facility] #59636, 167.64, cm, 01/09/21 14:27:00 EDT, Height, 63.64, [...] Mouth, Daily, # 90 tablet, 1 Refills, [facility] #11323, 90, TAKE 1 TABLET BY MOUTH DAILY, 167.64, cm, 04/21/21 13:13:00 EST, Height, 63.64, kg, 10/30/20 11:22:00 EDT, Dry Weight Start Date: 07/10/21 Status: Ordered Nutritional Supplements See Instructions, # 90 each, Refills 11, Tot. Refills 11, Maintenance, High Protein Ensure Use TID DX Pancreatitis, Weight Loss ICD 10 K85.90 R63.4 3 [place] 3 Vanilla Height 5'6 Weight 130lbs, 12/20/20 7:33:00 EDT, Supply Start Date: 12/20/20 Status: Ordered omeprazole 40 mg oral enteric coated capsule 1 capsule = 40 mg, By Mouth, Daily, # 30 capsule, 2 Refills, Maintenance, 09/10/21 14:25:00 EDT, ECCapsule, [facility] #29300, 167.64, cm, 09/01/21 8:31:00 EDT, Height, 63.64, kg, 10/30/2110:22:00 EDT, Dry Weight Start Date: 09/10/21 Stop Date: 12/09/21 Status: Ordered PEG-3350 with Electrolytes (Eqv-GoLYTELY) oral powder for reconstitution See Instructions, 1 glass every 15-30 minutes until finished, # 4,000 mL, 0 Refills, Maintenance, 08/26/20 16:28:00 EDT, [facility] #08715, Partial fill upon patient request if the prescription is for a schedule II opioid drug., 1 glass ever... Start Date: 08/26/20 Status: Ordered ProAir HFA 90 mcg/inh inhalation aerosol with adapter 2, puffs, Inhalation, Every 6 hours, PRN, # 8.5 Gm, Refills 5, Tot. Refills 5, Maintenance, 07/04/20 8:18:00 EST, Aerosol, Route to Pharmacy Electronically, [id number], [facility] #30591, 168, cm, 06/14/20 10:38:00... Start Date: 07/04/20 [...] capsule, Refills 1, Route to Pharmacy Electronically, [facility] #55785, 167.64, cm, 03/20/21 8:49:00 EDT, Height, 63.64, [...] FOR SLEEP, # 90 tablet, 1 Refills, [facility] #49184, 167.64, cm, 03/20/21 8:49:00 EDT, Height, 63.64, [...] 2018. 2Repeat EGD in 07/2020 for surveillance 78855; repeat 2019 4R shoulder 2018 5DrShabnam Choi (ENT surgeons) Social History Social History Type Response Smoking Status Current every day herve toney entered on: 12/17/15 Sex
--- OUTSIDE RECORDS SUMMARY | 2022-12-14 11:03 | XMS_ITS | Continuity of Care Document ---
Author Name Unknown Organization [facility] [place] Address [address] [place] [address]- Care Team Providers Care Binder Fixer Name Role Phone Casey Suarez MD Primary Care Physician Encounter [facility] Date(s): 07/03/20 - 08/02/20 [facility] Adult [address] [place] [address]- Allergies, Adverse Reactions, Alerts Substance Reaction Severity [...] Guardian Refuses 1Result Comment: Pt tolerated well. [facility] #[id number] 2Location History: [place] 3Result Comment: [05/06/2017] [facility]:9924-4564-36 Medications albuterol 0.083% inhalation solution 3 mL = 2.5 mg, Inhalation, Every 6 hours, # 120 each, 2 Refills, Maintenance, 04/30/20 11:23:00 EST, Solution, [facility] #[id number], 168, cm, 04/30/20 11:04:00 EST, Height, 63.5, kg, 08/07/19 9:46:00 EDT, Dry Weight Start Date: 04/30/20 Status: Ordered Creon 36,000 units oral delayed release capsule 1 capsule, By Mouth, 3 times a day, with each meal, # 90 capsule, 3 Refills, Maintenance, 08/07/19 11:39:00 EDT, [facility] #[id number], 1 capsule By Mouth 3 times a day,Instr:with each meal, 168, cm, 08/07/19 9:46:00 EDT, Height, 63.5, kg, 08/06... Start Date: 08/07/19 Status: Ordered ENSURE/VANILLA ENSURE/VANILLA, See Instructions, # 6 pack/packet, Refills 11, Tot. Refills 11, Maintenance, [facility] Protein Formula TID DX Pancreatitis Weight Loss 3 [place] 1 Vanilla, 06/25/20 9:20:00 EST, Compound Start [...] 04/22/20 13:38:00 EST, Route to Pharmacy Electronically, [facility] #[id number], Partial fill upon patient request, 168, cm, [...] 5 Refills, Maintenance, 04/22/20 13:08:00 EST, Tablet, [facility] #87807, 1 tablet By Mouth Daily,x30 days, 168, cm, 04/22/20 12:49:00 EST, Height, 63.5, kg, 08/07/19 9:46:00 EDT, Dry Weight Start Date: 04/22/20 Stop Date: 10/19/20 Status: Ordered Nutritional Supplements See Instructions, # 6 each, Refills 11, Tot. Refills 11, Maintenance, Max Protein Ensure 3 [place] 3 Vanilla use TID DX Pancreatitis Weight loss ICD 10 K85.9 R63.4 Weight: 137LBS Height: 5'6, 07/30/20 14:51:00 EST, Supply, 168, cm, 06/14... Start Date: 07/30/20 Status: Ordered omeprazole 40 mg oral enteric coated capsule 1 capsule = 40 mg, By Mouth, Daily, # 30 capsule, 10 Refills, Maintenance, 04/22/20 13:08:00 EST, EC Capsule, [facility] #[id number], 168, cm, 04/22/20 12:49:00 EST, Height, 63.5, [...] 8:18:00 EST, Aerosol, Route to Pharmacy Electronically, [id number], [facility] #[id number], 168, cm, 06/14/20 10:38:00... Start Date: 07/04/20 Status: Ordered tamsulosin 0.4 mg oral capsule 0.4 mg, 1, capsule, By Mouth, Daily, PER BELL HODGES, # 90 capsule, Refills 1, Tot. Refills 1, Maintenance, 04/29/20 16:06:00 EST, Route to Pharmacy Electronically, [facility] #[id number],Partial fill upon patient request, 168, cm, ... Start Date: 04/29/20 Status: Ordered tiZANidine 4 mg oral capsule 2 capsule = 8 mg, By Mouth, 3 times a day, 0 Refills, Maintenance, 10/13/19 10:32:00 EDT Start Date: 10/13/19 Status: Ordered traZODone 150 mg oral tablet 1 tablet, By Mouth, Daily at bedtime, PRN NEEDED FOR SLEEP, # 30 tablet, 5 Refills, Maintenance,04/22/20 13:08:00 EST, [facility][id number], 168, cm, 04/22/20 12:49:00 EST, Height, 63.5, [...] 2018. 2Repeat EGD in 07/2020 for surveillance 53006; repeat 2019 4R shoulder 2018 5DrShabnam Choi (ENT surgeons) Social History Social History Type Response Smoking Status Current every day herve toney entered on: 12/17/15 Sex
--- OUTSIDE RECORDS SUMMARY | 2022-12-14 11:03 | XMS_ITS | Continuity of Care Document ---
Author Name Unknown Organization [facility] [place] Address [address] [place] [address]- Care Team Providers Care Manager Environmental Affairs Name Role Phone Daniela BROWN, Casey Jiménez Primary Care Physician [facility]counter [facility] Date(s): 06/11/21 - 07/11/21 [facility] Adult [address] [place] [address]- Allergies, Adverse Reactions, Alerts Substance Reaction Severity Status amoxicillin heart racing Active acetaminophen-codeine ANAPHYLAXSIS Active Bee Stings anaphylactic Active Augmentin swelling [...] en Parent Or Guardian Refuses 1Result Comment: [facility]# [address] [id number] 2Result Comment: Pt tolerated well. [facility] #[id number] 3Location History: [facility] 4Result Comment: [05/06/2017] [facility]:3085-0140-02 Medications aspirin 81 mg oral delayed release tablet 1 tablet, By Mouth, Daily, # 90 tablet, 0 Refills, [facility] #[id number], 167.64, cm, 04/21/21 13:13:00 EST, Height, 63.64, kg, 10/30/20 11:22:00 EDT, Dry Weight Start Date: 07/11/21 Status: Ordered atorvastatin 80 mg oral tablet 1 tablet = 80 mg, By Mouth, Daily at bedtime, # 90 tablet, 3 Refills, Maintenance, 02/12/21 10:54:00 EDT, Tablet, [email or web address] #[id number], 167.64, cm, 01/13/21 9:46:00 EDT, Height, 63.64, kg, 10/30/20 11:22:00 EDT, Dry Weight Start Date: 02/12/21 Stop Date: 02/07/22 Status: Ordered clopidogrel 75 mg oral tablet 75 mg, 1, tablet, By Mouth, Daily, # 30 tablet, Refills 11, Tot. Refills 11, Maintenance, 12/09/20 17:12:00 EDT, Route to Pharmacy Electronically, [email or web address] #[id number], Partial fill upon patient request if the prescription is for a schedule II... Start Date: 12/09/20 Status: Ordered EpiPen 2-Sameer 0.3 mg injectable kit = 0.3 mg, Intramuscular, Once, Must go to hospital if used, # 1 each, 1 Refills, Soft Stop, 01/09/21 14:45:00 EDT, [facility] #[id number], 167.64, cm, 01/09/21 14:27:00 EDT, Height, 63.64, [...] 01/13/21 9:59:00 EDT, Route to Pharmacy Electronically, [facility] #[id number], Partial fill upon patient request if the prescription is for a schedule II opi... Start Date: 01/13/21 Status: Ordered multivitamin Multiple Vitamins oral tablet 1 tablet, By Mouth, Daily, # 90 tablet, 1 Refills, [facility] #59255, 90, TAKE 1 TABLET BY MOUTH DAILY, 167.64, cm, 04/21/21 13:13:00 EST, Height, 63.64, kg, 10/30/20 11:22:00 EDT, Dry Weight Start Date: 07/10/21 Status: Ordered Nutritional Supplements See Instructions, # 90 each, Refills 11, Tot. Refills 11, Maintenance, High Protein Ensure Use TID DX Pancreatitis, Weight Loss ICD 10 K85.90 R63.4 3 [place] 3 Vanilla Height 5'6 Weight 130lbs, 12/20/20 7:33:00 EDT, Supply Start Date: 12/20/20 Status: Ordered omeprazole 40 mg oral enteric coated capsule 1 capsule = 40 mg, By Mouth, Daily, # 30 capsule, 2 Refills, Maintenance, 01/14/21 14:05:00 EDT, ECCapsule, [facility] #[id number], 167.64, cm, 01/13/21 9:46:00 EDT, Height, 63.64, kg, 10/30/2110:22:00 EDT, Dry Weight Start Date: 01/14/21 Stop Date: 04/14/21 Status: Ordered PEG-3350 with Electrolytes (Eqv-GoLYTELY) oral powder for reconstitution See Instructions, 1 glass every 15-30 minutes until finished, # 4,000 mL, 0 Refills, Maintenance, 08/26/20 16:28:00 EDT, [facility] #07041, Partial fill upon patient request if the prescription is for a schedule II opioid drug., 1 glass ever... Start Date: 08/26/20 Status: Ordered ProAir HFA 90 mcg/inh inhalation aerosol with adapter 2, puffs, Inhalation, Every 6 hours, PRN, # 8.5 Gm, Refills 5, Tot. Refills 5, Maintenance, 07/04/20 8:18:00 EST, Aerosol, Route to Pharmacy Electronically, [id number], [facility] #[id number], 168, cm, 06/14/20 10:38:00... Start Date: 07/04/20 [...] capsule, Refills 1, Route to Pharmacy Electronically, [facility] #60355, 167.64, cm, 03/20/21 8:49:00 EDT, Height, 63.64, [...] FOR SLEEP, # 90 tablet, 1 Refills, [facility] #86752, 167.64, cm, 03/20/21 8:49:00 EDT, Height, 63.64, [...] 2019. 2Repeat EGD in 07/2020 for surveillance 75079; repeat 2019 4R shoulder 2018 5Dr. Jimbo (ENT surgeons) Social History Social History Type Response Smoking Status Current every day herve toney entered on: 12/17/15 Sex
--- OUTSIDE RECORDS SUMMARY | 2022-12-14 11:03 | XMS_ITS | Continuity of Care Document ---
Author Name Unknown Organization [facility] [place] Address [address] [place] [address]- Care Team Providers Care Purchasing Engineer Name Role Phone Casey Suarez MD Primary Care Physician [phone] [place] [facility] [place] 05/08/20 [facility] Adult [address] [place] [address]- Attending Physician: Tyra Dowling NP Referring Physician: Casey Suarez MD Allergies, Adverse Reactions, Alerts Substance Reaction Severity Status amoxicillin unknown Active acetaminophen-codeine ANAPHYLAXSIS Active Bee Stings Bee Active Augmentin swelling [...] Pt tolerated well. [facility] #[id number] 2Location History: [place] 3Result Comment: [05/06/2017] [facility]:9673-6496-94 Medications albuterol 0.083% inhalation solution 3 mL = 2.5 mg, Inhalation, Every 6 hours, # 120 each, 2 Refills, Maintenance, 04/30/20 11:23:00 EST, Solution, [facility] #[id number], 168, cm, 04/30/20 11:04:00 EST, Height, 63.5, [...] Refills, Soft Stop, 05/03/20 16:00:00 EST, Tablet, [facility] #45607, Partial fill upon patient request if the prescription is for a schedule IIopioid drug., 168, cm, 04/30/20 11:04:00 EST, Heigh... Start Date: 05/03/20 Status: Ordered Creon 36,000 units oral delayed release capsule 1 capsule, By Mouth, 3 times a day, with each meal, # 90 capsule, 3 Refills, Maintenance, 08/07/19 11:39:00 EDT, [facility] #95346, 1 capsule By Mouth 3 times a day,Instr:with each meal, 168, cm, 08/07/19 9:46:00 EDT, Height, 63.5, kg, 08/06... Start Date: 08/07/19 Status: Ordered Crestor 40 mg oral tablet 1 tablet = 40 mg, By Mouth, Daily, # 90 tablet, 3 Refills, Maintenance, 04/22/20 13:08:00 EST, Tablet, [facility] #43748, 168, cm, 04/22/20 12:49:00 EST, Height, 63.5, [...] 04/22/20 13:38:00 EST, Route to Pharmacy Electronically, [facility] #[id number], Partial fill upon patient request, 168, cm, [...] 5 Refills, Maintenance, 04/22/20 13:08:00 EST, Tablet, [facility] #31565, 1 tablet By Mouth Daily,x30 days, 168, cm, 04/22/20 12:49:00 EST, Height, 63.5, kg, 08/07/19 9:46:00 EDT, Dry Weight Start Date: 04/22/20 Stop Date: 10/19/20 Status: Ordered omeprazole 40 mg oral enteric coated capsule 1 capsule = 40 mg, By Mouth, Daily, # 30 capsule, 10 Refills, Maintenance, 04/22/20 13:08:00 EST, EC Capsule, [facility] #31921, 168, cm, 04/22/20 12:49:00 EST, Height, 63.5, [...] tablet, 0 Refills, Maintenance, 05/03/20 16:00:00 EST, [facility] #25261, Partial fill upon patient request if the prescription is for a schedule II opioid... Start Date: 05/03/20 Status: Ordered ProAir HFA 90 mcg/inh inhalation aerosol with adapter 2, puffs, Inhalation, Every 6 hours, PRN, # 8.5 Gm, Refills 2, Tot. Refills 2, Maintenance, 04/22/20 13:08:00 EST, Aerosol, Route to Pharmacy Electronically, [id number], [facility] #[id number], 168, cm, 04/22/20 12:49:00... Start Date: 04/22/20 Status: Ordered tamsulosin 0.4 mg oral capsule 0.4 mg, 1, capsule, By Mouth, Daily, PER TYRA HODGES, # 90 capsule, Refills 1, Tot. Refills 1, Maintenance, 04/29/20 16:06:00 EST, Route to Pharmacy Electronically, [facility] #[id number],Partial fill upon patient request, 168, cm, ... Start Date: 04/29/20 Status: Ordered tiZANidine 4 mg oral capsule 2 capsule = 8 mg, By Mouth, 3 times a day, 0 Refills, Maintenance, 10/13/19 10:32:00 EDT Start Date: 10/13/19 Status: Ordered traZODone 150 mg oral tablet 1 tablet, By Mouth, Daily at bedtime, PRN NEEDED FOR SLEEP, # 30 tablet, 5 Refills, Maintenance,04/22/20 13:08:00 EST, [facility] #68754, 168, cm, 04/22/20 12:49:00 EST, Height, 63.5, [...] 2019. 2Repeat EGD in 07/2020 for surveillance 96381; repeat 2019 4R shoulder 2017 5Dr. Jimbo (ENT surgeons) Social History Social History Type Response Smoking Status Current every day herve toney entered on: 12/17/15 Sex
--- OUTSIDE RECORDS SUMMARY | 2022-12-14 11:03 | XMS_ITS | Continuity of Care Document ---
Author Name Unknown Organization [facility] Address Unknown Care Team Providers Care Construction Field Engineer Name Role Phone Casey Suarez MD Primary Care Physician [phone] [place] [facility] [place]14[place]21 - 11/07/21 [facility] Attending Physician: Devin Burleson [...] en Parent Or Guardian Refuses 1Result Comment: [facility]# [address] [id number] 2Result Comment: Pt tolerated well. [facility] #[id number] 3Location History: [facility] 4Result Comment: [05/06/2017] [facility]:3793-5358-32 Medications aspirin 81 mg oral delayed release tablet 1 tablet, By Mouth, Daily, # 90 tablet, 0 Refills, [facility] #[id number], 167.6, cm, 229:54:00 EDT, Height, 63.6, kg, 09/22/21 9:54:00 EDT, Dry Weight Start Date: 10/10/21 Status: Ordered atorvastatin 80 mg oral tablet 1 tablet = 80 mg, By Mouth, Daily at bedtime, # 90 tablet, 3 Refills, Maintenance, 08/14/21 15:28:00 EDT, Tablet, [facility] #20400, 167.64, cm, 08/14/21 15:12:00 EDT, Height, 63.64, kg, 10/30/20 11:22:00 EDT, Dry Weight Start Date: 08/14/21 Stop Date: 08/09/22 Status: Ordered clopidogrel 75 mg oral tablet 75 mg, 1, tablet, By Mouth, Daily, # 30 tablet, Refills 11, Tot. Refills 11, Maintenance, 12/09/20 17:12:00 EDT, Route to Pharmacy Electronically, [facility] #62846, Partial fill upon patient request if the prescription is for a schedule II... Start Date: 12/09/20 Status: Ordered EpiPen 2-Sameer 0.3 mg injectable kit = 0.3 mg, Intramuscular, Once, Must go to hospital if used, # 1 each, 1 Refills, Soft Stop, 01/09/21 14:45:00 EDT, [facility] #[id number], 167.64, cm, 01/09/21 14:27:00 EDT, Height, 63.64, [...] Mouth, Daily, # 90 tablet, 1 Refills, [facility] #28080, 167.6, cm, :54:00 EDT, Height, 63.6, kg, 09/22/21 9:54:00 EDT, Dry Weight Start Date: 10/06/21 Status: Ordered multivitamin Multiple Vitamins oral tablet 1 tablet, By Mouth, Daily, # 90 tablet, 1 Refills, [facility] #97334, 90, TAKE 1 TABLET BY MOUTH DAILY, 167.64, cm, 04/21/21 13:13:00 EST, Height, 63.64, kg, 10/30/20 11:22:00 EDT, Dry Weight Start Date: 07/10/21 Status: Ordered Nutritional Supplements See Instructions, # 90 each, Refills 11, Tot. Refills 11, Maintenance, High Protein Ensure Use TID DX Pancreatitis, Weight Loss ICD 10 K85.90 R63.4 3 [place] 3 Vanilla Height 5'6 Weight 130lbs, 12/20/20 7:33:00 EDT, Supply Start Date: 12/20/20 Status: Ordered omeprazole 40 mg oral enteric coated capsule 1 capsule = 40 mg, By Mouth, Daily, # 30 capsule, 2 Refills, Maintenance, 09/10/21 14:25:00 EDT, ECCapsule, [facility] #08726, 167.64, cm, 09/01/21 8:31:00 EDT, Height, 63.64, kg, 10/30/2110:22:00 EDT, Dry Weight Start Date: 09/10/21 Stop Date: 12/09/21 Status: Ordered Paxlovid 150 mg-100 mg oral tablet See Instructions, follow package instructions, not renally impaired, # 30 tablet, 0 Refills, Maintenance, 09/23/21 15:45:00 EDT, [facility] #[id number], Partial fill upon patient request if the prescription is for a schedule II opioid drug., foll... Start Date: 09/23/21 Status: Ordered PEG-3350 with Electrolytes (Eqv-GoLYTELY) oral powder for reconstitution See Instructions, 1 glass every 15-30 minutes until finished, # 4,000 mL, 0 Refills, Maintenance, 08/26/20 16:28:00 EDT, [facility] #[id number], Partial fill upon patient request if the prescription is for a schedule II opioid drug., 1 glass ever... Start Date: 08/26/20 Status: Ordered ProAir HFA 90 mcg/inh inhalation aerosol with adapter 2, puffs, Inhalation, Every 6 hours, PRN, # 8.5 Gm, Refills 5, Tot. Refills 5, Maintenance, 07/04/20 8:18:00 EST, Aerosol, Route to Pharmacy Electronically, [id number], [facility] #53546, 168, cm, 06/14/20 10:38:00... Start Date: 07/04/20 [...] capsule, Refills 1, Route to Pharmacy Electronically, [facility] #[id number], 167.6, cm, 09/22/21 9:54:00 EDT, Height, 63.6, [...] FOR SLEEP, # 90 tablet, 1 Refills, [facility] #14626, 167.6, cm, 09/22/21 9:54:00 EDT, Height, 63.6, [...] 2018. 2Repeat EGD in 07/2020 for surveillance 70930; repeat 2019 4R shoulder 2018 5Dr. Jimbo (ENT surgeons) Social History Social History Type Response Smoking Status Current every day herve toney entered on: 12/17/15 Sex
--- OUTSIDE RECORDS SUMMARY | 2022-12-14 11:03 | XMS_ITS | Continuity of Care Document ---
Author Name Unknown Organization [facility] [place] Address [address] [place] [address]- Care Team Providers Care Corrosion Control Specialist Name Role Phone Casey Suarez MD Primary Care Physician [place] [facility] [place]20 [facility] [place] Adult [address] [place] [address]- Attending Physician: Not on Staff, Attending MD [...] tolerated well. [facility] #[id number] 2Location History: [facility] 3Result Comment: [05/06/2017] [facility]:8595-6351-78 Medications Creon 36,000 units oral delayed release capsule 1 capsule, By Mouth, 3 times a day, with each meal, # 90 capsule, 3 Refills, Maintenance, 08/07/19 11:39:00 EDT, [email or web address] #05327, 1 capsule By Mouth 3 times a [...] Formula TID DX Pancreatitis Weight Loss 3 [place] 1 Vanilla, 08/28/20 7:45:00 EDT, Compound Start [...] 04/22/20 13:38:00 EST, Route to Pharmacy Electronically, [facility] #[id number], Partial fill upon patient request, 168, cm, 04/22/20 12:49:00 EST,... Start Date: 04/22/20 Status: Ordered multivitamin Multiple Vitamins oral tablet 1 tablet, By Mouth, Daily, # 30 tablet, 5 Refills, Maintenance, 04/22/20 13:08:00 EST, Tablet, [email or web address] #87117, 1 tablet By Mouth Daily,x30 days, 168, cm, 04/22/20 12:49:00 EST, Height, 63.5, kg, 08/07/19 9:46:00 EDT, Dry Weight Start Date: 04/22/20 Stop Date: 10/19/20 Status: Ordered omeprazole 40 mg oral enteric coated capsule 1 capsule = 40 mg, By Mouth, Daily, # 30 capsule, 10 Refills, Maintenance, 04/22/20 13:08:00 EST, EC Capsule, [email or web address] #87478, 168, cm, 04/22/20 12:49:00 EST, Height, 63.5, [...] mL, 0 Refills, Maintenance, 08/26/20 16:28:00 EDT, [email or web address] #44395, Partial fill upon patient request if the prescription is for a schedule II opioid drug., 1 glass ever... Start Date: 08/26/20 Status: Ordered ProAir HFA 90 mcg/inh inhalation aerosol with adapter 2, puffs, Inhalation, Every 6 hours, PRN, # 8.5 Gm, Refills 5, Tot. Refills 5, Maintenance, 07/04/20 8:18:00 EST, Aerosol, Route to Pharmacy Electronically, [id number], [facility] #09521, 168, cm, 06/14/20 10:38:00... Start Date: 07/04/20 Status: Ordered tamsulosin 0.4 mg oral capsule 0.4 mg, 1, capsule, By Mouth, Daily, PER BELL HODGES, # 90 capsule, Refills 1, Tot. Refills 1, Maintenance, 04/29/20 16:06:00 EST, Route to Pharmacy Electronically, [email or web address] #39017,Partial fill upon patient request, 168, cm, ... Start Date: 04/29/20 Status: Ordered traZODone 150 mg oral tablet 1 tablet, By Mouth, Daily at bedtime, PRN NEEDED FOR SLEEP, # 30 tablet, 5 Refills, Maintenance,04/22/20 13:08:00 EST, [facility] #21411, 168, cm, 04/22/20 12:49:00 EST, Height, 63.5, [...] 2019. 2Repeat EGD in 07/2020 for surveillance 34920; repeat 2019 4R shoulder 2018 5DrShabnam Choi (ENT surgeons) Social History Social History Type Response Smoking Status Current every day herve toney entered on: 12/17/15 Sex
--- OUTSIDE RECORDS SUMMARY | 2022-12-14 11:03 | XMS_ITS | Continuity of Care Document ---
Author Name Unknown Organization [facility] Address [address] [place] [address]- Care Team Providers Care Process Artist Name Role Phone Daniela BROWN, Casey Jiménez Primary Care Physician [place] [facility] [place] Date(s): 01/15/21 - 01/22/21 [facility] [address] [place] [address]- Attending Physician: Chava Bauer MD Admitting Physician: Chava Bauer MD Referring Physician: Casey Suarez MD Allergies, [...] 1Result Comment: Pt tolerated well. [facility] [place] #[id number] 2[facility] History: [facility] 3Result Comment: [05/06/2017] [facility] [place] 2]:[id number] Medications aspirin 81 mg oral delayed release tablet 81 mg, 1, tablet, By Mouth, Daily, # 90 tablet, Refills 1, Tot. Refills 1, Maintenance, 01/09/21 14:52:00 EDT, Route to Pharmacy Electronically, [facility] #13709, Partial fill upon patientrequest if the prescription is for a schedule II op... Start Date: 01/09/21 Status: Ordered atorvastatin 80 mg oral tablet 1 tablet = 80 mg, By Mouth, Daily at bedtime, # 90 tablet, 4 Refills, Maintenance, 01/09/21 14:44:00 EDT, Tablet, [facility] #09709, Partial fill upon patient request if the prescription isfor a schedule II opioid drug., 167.64, cm, ... Start Date: 01/09/21 Stop Date: 04/04/22 Status: Ordered clopidogrel 75 mg oral tablet 75 mg, 1, tablet, By Mouth, Daily, # 30 tablet, Refills 11, Tot. Refills 11, Maintenance, 12/09/20 17:12:00 EDT, Route to Pharmacy Electronically, [facility] #48174, Partial fill upon patient request if the prescription is for a schedule II... Start Date: 12/09/20 Status: Ordered EpiPen 2-Sameer 0.3 mg injectable kit = 0.3 mg, Intramuscular, Once, Must go to hospital if used, # 1 each, 1 Refills, Soft Stop, 01/09/21 14:45:00 EDT, [facility] #89323, 167.64, cm, 01/09/21 14:27:00 EDT, Height, 63.64, [...] 01/13/21 9:59:00 EDT, Route to Pharmacy Electronically, [facility] #36784, Partial fill upon patient request if the prescription is for a schedule II opi... Start Date: 01/13/21 Status: Ordered multivitamin Multiple Vitamins oral tablet 1 tablet, By Mouth, Daily, # 90 tablet, 1 Refills, Maintenance, 01/09/21 14:44:00 EDT, Tablet, [facility] #80062, 1 tablet By Mouth Daily, 167.64, cm, 01/09/21 14:27:00 EDT, Height, 63.64, kg, 10/30/20 11:22:00 EDT, Dry Weight Start Date: 01/09/21 Status: Ordered Nutritional Supplements See Instructions, # 90 each, Refills 11, Tot. Refills 11, Maintenance, High Protein Ensure Use TID DX Pancreatitis, Weight Loss ICD 10 K85.90 R63.4 3 [place] 3 Vanilla Height 5'6 Weight 130lbs, 12/20/20 7:33:00 EDT, Supply Start Date: 12/20/20 Status: Ordered omeprazole 40 mg oral enteric coated capsule 1 capsule = 40 mg, By Mouth, Daily, # 30 capsule, 2 Refills, Maintenance, 01/14/21 14:05:00 EDT, ECCapsule, [facility] #39209, 167.64, cm, 01/13/21 9:46:00 EDT, Height, 63.64, kg, 10/30/2110:22:00 EDT, Dry Weight Start Date: 01/14/21 Stop Date: 04/14/21 Status: Ordered PEG-3350 with Electrolytes (Eqv-GoLYTELY) oral powder for reconstitution See Instructions, 1 glass every 15-30 minutes until finished, # 4,000 mL, 0 Refills, Maintenance, 08/26/20 16:28:00 EDT, [facility] #29957, Partial fill upon patient request if the prescription is for a schedule II opioid drug., 1 glass ever... Start Date: 08/26/20 Status: Ordered ProAir HFA 90 mcg/inh inhalation aerosol with adapter 2, puffs, Inhalation, Every 6 hours, PRN, # 8.5 Gm, Refills 5, Tot. Refills 5, Maintenance, 07/04/20 8:18:00 EST, Aerosol, Route to Pharmacy Electronically, [id number], [facility] #23711, 168, cm, 06/14/20 10:38:00... Start Date: 07/04/20 [...] 10/16/20 8:15:00 EDT, Route to Pharmacy Electronically, [facility] #31166, Partial fill upon patient request, 168, cm, [...] 90 tablet, 1 Refills, Maintenance,10/16/20 8:15:00 EDT, [facility] #25119, 168, cm, 10/16/20 7:49:00 EDT, Height, 60, [...] 2019. 2Repeat EGD in 07/2020 for surveillance 97375; repeat 2019 4R shoulder 2018 5DrShabnam Choi (ENT surgeons) Social History Social History Type Response Smoking Status Current every day herve toney entered on: 12/17/15 Sex
--- OUTSIDE RECORDS SUMMARY | 2022-12-14 11:03 | XMS_ITS | Continuity of Care Document ---
Author Name Unknown Organization [facility] [place] Address [address] [place] [address]- Care Team Providers Care Police Patrol Lieutenant Name Role Phone Casey Suarez MD Primary Care Physician [phone] [facility]counter [facility] Date[facility]s): 04/29/20 - 05/29/20 [facility] Adult [address] [place] [address]- Allergies, Adverse Reactions, Alerts Substance Reaction Severity [...] Refuses 1Result Comment: Pt tolerated well. [facility] #[id number] 2Location History: [place] 3Result Comment: [05/06/2017] [facility]:0965-2367-99 Medications albuterol 0.083% inhalation solution 3 mL = 2.5 mg, Inhalation, Every 6 hours, # 120 each, 2 Refills, Maintenance, 04/30/20 11:23:00 EST, Solution, [facility] #[id number], 168, cm, 04/30/20 11:04:00 EST, Height, 63.5, [...] Refills, Soft Stop, 05/03/20 16:00:00 EST, Tablet, [facility] #[id number], Partial fill upon patient request if the prescription is for a schedule IIopioid drug., 168, cm, 04/30/20 11:04:00 EST, Heigh... Start Date: 05/03/20 Status: Ordered Creon 36,000 units oral delayed release capsule 1 capsule, By Mouth, 3 times a day, with each meal, # 90 capsule, 3 Refills, Maintenance, 08/07/19 11:39:00 EDT, [facility] #[id number], 1 capsule By Mouth 3 times a day,Instr:with each meal, 168, cm, 08/07/19 9:46:00 EDT, Height, 63.5, kg, 08/06... Start Date: 08/07/19 Status: Ordered Crestor 40 mg oral tablet 1 tablet = 40 mg, By Mouth, Daily, # 90 tablet, 3 Refills, Maintenance, 04/22/20 13:08:00 EST, Tablet, [facility] #[id number], 168, cm, 04/22/20 12:49:00 EST, Height, 63.5, [...] 04/22/20 13:38:00 EST, Route to Pharmacy Electronically, [facility] #[id number], Partial fill upon patient request, 168, cm, [...] 5 Refills, Maintenance, 04/22/20 13:08:00 EST, Tablet, [facility] #[id number], 1 tablet By Mouth Daily,x30 days, 168, cm, 04/22/20 12:49:00 EST, Height, 63.5, kg, 08/07/19 9:46:00 EDT, Dry Weight Start Date: 04/22/20 Stop Date: 10/19/20 Status: Ordered omeprazole 40 mg oral enteric coated capsule 1 capsule = 40 mg, By Mouth, Daily, # 30 capsule, 10 Refills, Maintenance, 04/22/20 13:08:00 EST, EC Capsule, [facility] #[id number], 168, cm, 04/22/20 12:49:00 EST, Height, 63.5, [...] tablet, 0 Refills, Maintenance, 05/03/20 16:00:00 EST, [facility] #[id number], Partial fill upon patient request if the prescription is for a schedule II opioid... Start Date: 05/03/20 Status: Ordered ProAir HFA 90 mcg/inh inhalation aerosol with adapter 2, puffs, Inhalation, Every 6 hours, PRN, # 8.5 Gm, Refills 2, Tot. Refills 2, Maintenance, 04/22/20 13:08:00 EST, Aerosol, Route to Pharmacy Electronically, [id number], [facility] #[id number], 168, cm, 04/22/20 12:49:00... Start Date: 04/22/20 Status: Ordered tamsulosin 0.4 mg oral capsule 0.4 mg, 1, capsule, By Mouth, Daily, PER BELL HODGES, # 90 capsule, Refills 1, Tot. Refills 1, Maintenance, 04/29/20 16:06:00 EST, Route to Pharmacy Electronically, [facility] #[id number],Partial fill upon patient request, 168, cm, ... Start Date: 04/29/20 Status: Ordered tiZANidine 4 mg oral capsule 2 capsule = 8 mg, By Mouth, 3 times a day, 0 Refills, Maintenance, 10/13/19 10:32:00 EDT Start Date: 10/13/19 Status: Ordered traZODone 150 mg oral tablet 1 tablet, By Mouth, Daily at bedtime, PRN NEEDED FOR SLEEP, # 30 tablet, 5 Refills, Maintenance,04/22/20 13:08:00 EST, [id number], 168, cm, 04/22/20 12:49:00 EST, Height, 63.5, [...] 2018. 2Repeat EGD in 07/2020 for surveillance 08639; repeat 2019 4R shoulder 2017 5Dr. Jimbo (ENT surgeons) Social History Social History Type Response Smoking Status Current every day herve toney entered on: 12/17/15 Sex
--- OUTSIDE RECORDS SUMMARY | 2022-12-14 11:03 | XMS_ITS | Continuity of Care Document ---
Author Name Unknown Organization [facility] [place] Address [address] [place] [address]- Care Team Providers Care Wire Coater Name Role Phone Casey Suarez MD Primary Care Physician [facility] Date(s): 05/03/20 - 06/02/20 [facility] Adult [address] [place] [address]- Allergies, Adverse Reactions, Alerts Substance Reaction Severity [...] Pt tolerated well. [facility] #[id number] 2Location History: [place] 3Result Comment: [05/06/2017] [facility]:4128-2812-15 Medications albuterol 0.083% inhalation solution 3 mL = 2.5 mg, Inhalation, Every 6 hours, # 120 each, 2 Refills, Maintenance, 04/30/20 11:23:00 EST, Solution, [facility] #[id number], 168, cm, 04/30/20 11:04:00 EST, Height, 63.5, [...] Refills, Soft Stop, 05/03/20 16:00:00 EST, Tablet, [facility] #[id number], Partial fill upon patient request if the prescription is for a schedule IIopioid drug., 168, cm, 04/30/20 11:04:00 EST, Heigh... Start Date: 05/03/20 Status: Ordered Creon 36,000 units oral delayed release capsule 1 capsule, By Mouth, 3 times a day, with each meal, # 90 capsule, 3 Refills, Maintenance, 08/07/19 11:39:00 EDT, [facility] #[id number], 1 capsule By Mouth 3 times a day,Instr:with each meal, 168, cm, 08/07/19 9:46:00 EDT, Height, 63.5, kg, 08/06... Start Date: 08/07/19 Status: Ordered Crestor 40 mg oral tablet 1 tablet = 40 mg, By Mouth, Daily, # 90 tablet, 3 Refills, Maintenance, 04/22/20 13:08:00 EST, Tablet, [facility] #[id number], 168, cm, 04/22/20 12:49:00 EST, Height, 63.5, [...] 04/22/20 13:38:00 EST, Route to Pharmacy Electronically, [facility] #[id number], Partial fill upon patient request, 168, cm, [...] 5 Refills, Maintenance, 04/22/20 13:08:00 EST, Tablet, [facility] #[id number], 1 tablet By Mouth Daily,x30 days, 168, cm, 04/22/20 12:49:00 EST, Height, 63.5, kg, 08/07/19 9:46:00 EDT, Dry Weight Start Date: 04/22/20 Stop Date: 10/19/20 Status: Ordered omeprazole 40 mg oral enteric coated capsule 1 capsule = 40 mg, By Mouth, Daily, # 30 capsule, 10 Refills, Maintenance, 04/22/20 13:08:00 EST, EC Capsule, [facility] #[id number], 168, cm, 04/22/20 12:49:00 EST, Height, 63.5, [...] tablet, 0 Refills, Maintenance, 05/03/20 16:00:00 EST, [facility] #[id number], Partial fill upon patient request if the prescription is for a schedule II opioid... Start Date: 05/03/20 Status: Ordered ProAir HFA 90 mcg/inh inhalation aerosol with adapter 2, puffs, Inhalation, Every 6 hours, PRN, # 8.5 Gm, Refills 2, Tot. Refills 2, Maintenance, 04/22/20 13:08:00 EST, Aerosol, Route to Pharmacy Electronically, [id number], [facility] #[id number], 168, cm, 04/22/20 12:49:00... Start Date: 04/22/20 Status: Ordered tamsulosin 0.4 mg oral capsule 0.4 mg, 1, capsule, By Mouth, Daily, PER BELL HODGES, # 90 capsule, Refills 1, Tot. Refills 1, Maintenance, 04/29/20 16:06:00 EST, Route to Pharmacy Electronically, [facility] #[id number],Partial fill upon patient request, 168, cm, ... Start Date: 04/29/20 Status: Ordered tiZANidine 4 mg oral capsule 2 capsule = 8 mg, By Mouth, 3 times a day, 0 Refills, Maintenance, 10/13/19 10:32:00 EDT Start Date: 10/13/19 Status: Ordered traZODone 150 mg oral tablet 1 tablet, By Mouth, Daily at bedtime, PRN NEEDED FOR SLEEP, # 30 tablet, 5 Refills, Maintenance,04/22/20 13:08:00 EST, [facility] #[id number], 168, cm, 04/22/20 12:49:00 EST, Height, 63.5, [...] 2019. 2Repeat EGD in 07/2020 for surveillance 49267; repeat 2019 4R shoulder 2017 5Dr. Jimbo (ENT surgeons) Social History Social History Type Response Smoking Status Current every day herve toney entered on: 12/17/15 Sex
--- OUTSIDE RECORDS SUMMARY | 2022-12-14 11:03 | XMS_ITS | Continuity of Care Document ---
Author Name Unknown Organization [facility] Address [address] [place] [address]- Care Team Providers Care Developer Designer Name Role Phone Daniela BROWN, Casey Jiménez Primary Care Physician Encounter [facility] Date(s): 05/06/21 - 09/03/21 [facility] [address] [place] [address]- Attending Physician: Mark Diaz MD Admitting Physician: Mark Diaz MD Referring Physician: Casey Suarez MD Allergies, [...] Parent Or Guardian Refuses 1Result Comment: [facility]# [address] [id number] 2Result Comment: Pt tolerated well. [facility] #[id number] 3Location History: [place] 4Result Comment: [05/06/2017] [facility]:0389-9788-03 Medications aspirin 81 mg oral delayed release tablet 1 tablet, By Mouth, Daily, # 90 tablet, 0 Refills, [email or web address] #[id number], 167.64, cm, 04/21/21 13:13:00 EST, Height, 63.64, kg, 10/30/20 11:22:00 EDT, Dry Weight Start Date: 07/11/21 Status: Ordered atorvastatin 80 mg oral tablet 1 tablet = 80 mg, By Mouth, Daily at bedtime, # 90 tablet, 3 Refills, Maintenance, 08/14/21 15:28:00 EDT, Tablet, [email or web address] #09299, 167.64, cm, 08/14/21 15:12:00 EDT, Height, 63.64, kg, 10/30/20 11:22:00 EDT, Dry Weight Start Date: 08/14/21 Stop Date: 08/09/22 Status: Ordered clopidogrel 75 mg oral tablet 75 mg, 1, tablet, By Mouth, Daily, # 30 tablet, Refills 11, Tot. Refills 11, Maintenance, 12/09/20 17:12:00 EDT, Route to Pharmacy Electronically, [email or web address] #[id number], Partial fill upon patient request if the prescription is for a schedule II... Start Date: 12/09/20 Status: Ordered EpiPen 2-Sameer 0.3 mg injectable kit = 0.3 mg, Intramuscular, Once, Must go to hospital if used, # 1 each, 1 Refills, Soft Stop, 01/09/21 14:45:00 EDT, [facility] #[id number], 167.64, cm, 01/09/21 14:27:00 EDT, Height, 63.64, [...] Mouth, Daily, # 90 tablet, 1 Refills, [facility] #22435, 90, TAKE 1 TABLET BY MOUTH DAILY, 167.64, cm, 04/21/21 13:13:00 EST, Height, 63.64, kg, 10/30/20 11:22:00 EDT, Dry Weight Start Date: 07/10/21 Status: Ordered Nutritional Supplements See Instructions, # 90 each, Refills 11, Tot. Refills 11, Maintenance, High Protein Ensure Use TID DX Pancreatitis, Weight Loss ICD 10 K85.90 R63.4 3 [place] 3 Vanilla Height 5'6 Weight 130lbs, 12/20/20 7:33:00 EDT, Supply Start Date: 12/20/20 Status: Ordered omeprazole 40 mg oral enteric coated capsule 1 capsule = 40 mg, By Mouth, Daily, # 30 capsule, 2 Refills, Maintenance, 01/14/21 14:05:00 EDT, ECCapsule, [facility] #[id number], 167.64, cm, 01/13/21 9:46:00 EDT, Height, 63.64, kg, 10/30/2110:22:00 EDT, Dry Weight Start Date: 01/14/21 Stop Date: 04/14/21 Status: Ordered PEG-3350 with Electrolytes (Eqv-GoLYTELY) oral powder for reconstitution See Instructions, 1 glass every 15-30 minutes until finished, # 4,000 mL, 0 Refills, Maintenance, 08/26/20 16:28:00 EDT, [facility] #[id number], Partial fill upon patient request if the prescription is for a schedule II opioid drug., 1 glass ever... Start Date: 08/26/20 Status: Ordered ProAir HFA 90 mcg/inh inhalation aerosol with adapter 2, puffs, Inhalation, Every 6 hours, PRN, # 8.5 Gm, Refills 5, Tot. Refills 5, Maintenance, 07/04/20 8:18:00 EST, Aerosol, Route to Pharmacy Electronically, [id number], [facility] #[id number], 168, cm, 06/14/20 10:38:00... Start Date: 07/04/20 [...] capsule, Refills 1, Route to Pharmacy Electronically, [facility] #[id number], 167.64, cm, 03/20/21 8:49:00 EDT, Height, 63.64, [...] FOR SLEEP, # 90 tablet, 1 Refills, [facility] #[id number], 167.64, cm, 03/20/21 8:49:00 EDT, Height, 63.64, [...] 2018. 2Repeat EGD in 07/2020 for surveillance 38331; repeat 2019 4R shoulder 2017 5Dr. Jimbo (ENT surgeons) Social History Social History Type Response Smoking Status Current every day herve toney entered on: 12/17/15 Sex
--- OUTSIDE RECORDS SUMMARY | 2022-12-14 11:03 | XMS_ITS | Continuity of Care Document ---
Author Name Unknown Organization [facility] [place] Address [address] [place] [address]- Care Team Providers Care Breakdown Person Name Role Phone Casey Suarez MD Primary Care Physician [phone] [facility]counter [facility] Date(s): 12/12/20 - 01/11/21 [facility] Adult [address] [place] [address]- Allergies, Adverse Reactions, Alerts Substance Reaction Severity [...] Pt tolerated well. [facility] #[id number] 2Location History: [place] 3Result Comment: [05/06/2017] [facility]:[id number] Medications amiodarone 200 mg oral tablet 200 mg, 1, tablet, By Mouth, 2 times a day, # 60 tablet, Refills 0, Tot. Refills 0, Maintenance, 11/13/20 9:34:00 EDT, Route to Pharmacy Electronically, [facility], Partial fill upon patient request if the prescription is for a schedule... Start Date: 11/13/20 Status: Ordered aspirin 81 mg oral delayed release tablet 81 mg, 1, tablet, By Mouth, Daily, # 90 tablet, Refills 1, Tot. Refills 1, Maintenance, 01/09/21 14:52:00 EDT, Route to Pharmacy Electronically, [facility] #[id number], Partial fill upon patientrequest if the prescription is for a schedule II op... Start Date: 01/09/21 Status: Ordered atorvastatin 80 mg oral tablet 1 tablet = 80 mg, By Mouth, Daily at bedtime, # 90 tablet, 4 Refills, Maintenance, 01/09/21 14:44:00 EDT, Tablet, [facility] #[id number], Partial fill upon patient request if the prescription isfor a schedule II opioid drug., 167.64, cm, ... Start Date: 01/09/21 Stop Date: 04/04/22 Status: Ordered clopidogrel 75 mg oral tablet 75 mg, 1, tablet, By Mouth, Daily, # 30 tablet, Refills 11, Tot. Refills 11, Maintenance, 12/09/20 17:12:00 EDT, Route to Pharmacy Electronically, [facility] #[id number], Partial fill upon patient request if the prescription is for a schedule II... Start Date: 12/09/20 Status: Ordered EpiPen 2-Sameer 0.3 mg injectable kit = 0.3 mg, Intramuscular, Once, Must go to hospital if used, # 1 each, 1 Refills, Soft Stop, 01/09/21 14:45:00 EDT, [facility] #[id number], 167.64, cm, 01/09/21 14:27:00 EDT, Height, 63.64, [...] 1 Refills, Maintenance, 01/09/21 14:44:00 EDT, Tablet, [facility] #[id number], 1 tablet By Mouth Daily, 167.64, cm, 01/09/21 14:27:00 EDT, Height, 63.64, kg, 10/30/20 11:22:00 EDT, Dry Weight Start Date: 01/09/21 Status: Ordered Nutritional Supplements See Instructions, # 90 each, Refills 11, Tot. Refills 11, Maintenance, High Protein Ensure Use TID DX Pancreatitis, Weight Loss ICD 10 K85.90 R63.4 3 [employer] 3 Vanilla Height 5'6 Weight 130lbs, 12/20/20 7:33:00 EDT, Supply Start Date: 12/20/20 Status: Ordered omeprazole 40 mg oral enteric coated capsule 1 capsule = 40 mg, By Mouth, Daily, # 30 capsule, 10 Refills, Maintenance, 04/22/20 13:08:00 EST, EC Capsule, [facility] #49019, 168, cm, 04/22/20 12:49:00 EST, Height, 63.5, [...] mL, 0 Refills, Maintenance, 08/26/20 16:28:00 EDT, [facility] #[id number], Partial fill upon patient request if the prescription is for a schedule II opioid drug., 1 glass ever... Start Date: 08/26/20 Status: Ordered ProAir HFA 90 mcg/inh inhalation aerosol with adapter 2, puffs, Inhalation, Every 6 hours, PRN, # 8.5 Gm, Refills 5, Tot. Refills 5, Maintenance, 07/04/20 8:18:00 EST, Aerosol, Route to Pharmacy Electronically, [id number], [facility] #32651, 168, cm, 06/14/20 10:38:00... Start Date: 07/04/20 [...] 10/16/20 8:15:00 EDT, Route to Pharmacy Electronically, [facility] #[id number], Partial fill upon patient request, 168, cm, [...] 90 tablet, 1 Refills, Maintenance,10/16/20 8:15:00 EDT, [facility] #[id number], 168, cm, 10/16/20 7:49:00 EDT, Height, 60, [...] 2019. 2Repeat EGD in 07/2020 for surveillance 45426; repeat 2019 4R shoulder 2018 5DrShabnam Choi (ENT surgeons) Social History Social History Type Response Smoking Status Current every day herve toney entered on: 12/17/15 Sex
--- OUTSIDE RECORDS SUMMARY | 2022-12-14 11:03 | XMS_ITS | Continuity of Care Document ---
Author Name Unknown Organization [facility] Address [address] [place] [address]- Care Team Providers Care Campaign Marketing Specialist Name Role Phone Casey Suarez MD Primary Care Physician [facility] Date[facility]s): 09[facility]16[facility]20 - 10/16/20 [facility] [address] [place] [address] Allergies, Adverse Reactions, Alerts Substance Reaction Severity [...] Guardian Refuses 1Result Comment: Pt tolerated well. [facility] #[id number] 2Location History: [place] 3Result Comment: [05/06/2017] [facility]:3609-0725-33 Medications aspirin 81 mg oral delayed release [...] Formula TID DX Pancreatitis Weight Loss 3 [place] 1 Vanilla, 08/28/20 7:45:00 EDT, Compound Start [...] 04/22/20 13:38:00 EST, Route to Pharmacy Electronically, [facility] #[id number], Partial fill upon patient request, 168, cm, 04/22/20 12:49:00 EST,... Start Date: 04/22/20 Status: Ordered isosorbide mononitrate 30 mg oral tablet, extended release See Instructions, 1/2 tablet By Mouth Daily in AM 30 days, # 15 tablet, Refills 3, Tot. Refills 3, Maintenance, 10/07/20 15:26:00 EDT, Instructions Replace Required Details, Route to Pharmacy Electronically, [facility] #[id number], Partial fill u... Start Date: 10/07/20 Status: Ordered metoprolol 50 mg oral tablet, extended release 50 mg, 1, tablet, By Mouth, Daily, # 30 tablet, Refills 3, Tot. Refills 3, Maintenance, 10/16/20 13:19:00 EDT, Route to Pharmacy Electronically, [facility] #[id number], Partial fill upon patientrequest if the prescription is for a schedule II op... Start Date: 10/16/20 Stop Date: 02/13/21 Status: Ordered multivitamin Multiple Vitamins oral tablet 1 tablet, By Mouth, Daily, # 30 tablet, 5 Refills, Maintenance, 04/22/20 13:08:00 EST, Tablet, [facility] #48374, 1 tablet By Mouth Daily,x30 days, 168, cm, 04/22/20 12:49:00 EST, Height, 63.5, kg, 08/07/19 9:46:00 EDT, Dry Weight Start Date: 04/22/20 Stop Date: 10/19/20 Status: Ordered omeprazole 40 mg oral enteric coated capsule 1 capsule = 40 mg, By Mouth, Daily, # 30 capsule, 10 Refills, Maintenance, 04/22/20 13:08:00 EST, EC Capsule, [facility] #[id number], 168, cm, 04/22/20 12:49:00 EST, Height, 63.5, [...] mL, 0 Refills, Maintenance, 08/26/20 16:28:00 EDT, [facility] #[id number], Partial fill upon patient request if the prescription is for a schedule II opioid drug., 1 glass ever... Start Date: 08/26/20 Status: Ordered ProAir HFA 90 mcg/inh inhalation aerosol with adapter 2, puffs, Inhalation, Every 6 hours, PRN, # 8.5 Gm, Refills 5, Tot. Refills 5, Maintenance, 07/04/20 8:18:00 EST, Aerosol, Route to Pharmacy Electronically, [id number], [facility] #[id number], 168, cm, 06/14/20 10:38:00... Start Date: 07/04/20 Status: Ordered tamsulosin 0.4 mg oral capsule 0.4 mg, 1, capsule, By Mouth, Daily, PER BELL HODGES, # 90 capsule, Refills 1, Tot. Refills 1, Maintenance, 10/16/20 8:15:00 EDT, Route to Pharmacy Electronically, [facility] #[id number], Partial fill upon patient request, 168, cm, 10/16/20... Start Date: 10/16/20 Status: Ordered traZODone 150 mg oral tablet 1 tablet, By Mouth, Daily at bedtime, PRN NEEDED FOR SLEEP, # 90 tablet, 1 Refills, Maintenance,10/16/20 8:15:00 EDT, [facility] #[id number], 168, cm, 10/16/20 7:49:00 EDT, Height, 60, [...] 2019. 2Repeat EGD in 07/2020 for surveillance 66566; repeat 2019 4R shoulder 2018 5Dr. Jimbo (ENT surgeons) Social History Social History Type Response Smoking Status Current every day herve toney entered on: 12/17/15 Sex
--- OUTSIDE RECORDS SUMMARY | 2022-12-14 11:04 | XMS_ITS | Continuity of Care Document ---
Author Name Unknown Organization [facility] [place] [place] Address [address] [place] [address]- Care Team Providers Care Lead Pressman Name Role Phone Casey Suarez MD Primary Care Physician [phone] Encounter [facility] [place] Date(s): 11/06/21 - 11/13/21 [facility] [place] Adult [address] [place] [address]- Encounter Diagnosis URI (upper respiratory infection)(Discharge Diagnosis) - 11/06/21 Abscess of buttock(Discharge Diagnosis) - 11/06/21 Attending Physician: Heraclio OSORIO, Tesha Allergies, Adverse Reactions, Alerts Substance Reaction Severity [...] en Parent Or Guardian Refuses 1Result Comment: [facility]# [address] [phone] 2Result Comment: Pt tolerated well. [facility] #[id number] 3Location History: [facility] 4Result Comment: [05/06/2017] [facility]:[id number] Medications aspirin 81 mg oral delayed release tablet 1 tablet, By Mouth, Daily, # 90 tablet, 0 Refills, [facility] #[id number], 167.6, cm, 229:54:00 EDT, Height, 63.6, kg, 09/22/21 9:54:00 EDT, Dry Weight Start Date: 10/10/21 Status: Ordered atorvastatin 80 mg oral tablet 1 tablet = 80 mg, By Mouth, Daily at bedtime, # 90 tablet, 3 Refills, Maintenance, 08/14/21 15:28:00 EDT, Tablet, [facility] #[id number], 167.64, cm, 08/14/21 15:12:00 EDT, Height, 63.64, kg, 10/30/20 11:22:00 EDT, Dry Weight Start Date: 08/14/21 Stop Date: 08/09/22 Status: Ordered clopidogrel 75 mg oral tablet 75 mg, 1, tablet, By Mouth, Daily, # 30 tablet, Refills 11, Tot. Refills 11, Maintenance, 12/09/20 17:12:00 EDT, Route to Pharmacy Electronically, [facility] #[id number], Partial fill upon patient request if the prescription is for a schedule II... Start Date: 12/09/20 Status: Ordered EpiPen 2-Sameer 0.3 mg injectable kit = 0.3 mg, Intramuscular, Once, Must go to hospital if used, # 1 each, 1 Refills, Soft Stop, 01/09/21 14:45:00 EDT, [facility] #[id number], 167.64, cm, 01/09/21 14:27:00 EDT, Height, 63.64, [...] Mouth, Daily, # 90 tablet, 1 Refills, [facility] #[id number], 167.6, cm, 229:54:00 EDT, Height, 63.6, kg, 09/22/21 9:54:00 EDT, Dry Weight Start Date: 10/06/21 Status: Ordered multivitamin Multiple Vitamins oral tablet 1 tablet, By Mouth, Daily, # 90 tablet, 1 Refills, [facility] #[id number], 90, TAKE 1 TABLET BY MOUTH DAILY, 167.64, cm, 04/21/21 13:13:00 EST, Height, 63.64, kg, 10/30/20 11:22:00 EDT, Dry Weight Start Date: 07/10/21 Status: Ordered Nutritional Supplements See Instructions, # 90 each, Refills 11, Tot. Refills 11, Maintenance, High Protein Ensure Use TID DX Pancreatitis, Weight Loss ICD 10 K85.90 R63.4 3 [place] 3 Vanilla Height 5'6 Weight 130lbs, 12/20/20 7:33:00 EDT, Supply Start Date: 12/20/20 Status: Ordered omeprazole 40 mg oral enteric coated capsule 1 capsule = 40 mg, By Mouth, Daily, # 30 capsule, 2 Refills, Maintenance, 09/10/21 14:25:00 EDT, ECCapsule, [facility] #[id number], 167.64, cm, 09/01/21 8:31:00 EDT, Height, 63.64, kg, 10/30/2110:22:00 EDT, Dry Weight Start Date: 09/10/21 Stop Date: 12/09/21 Status: Ordered Paxlovid 150 mg-100 mg oral tablet See Instructions, follow package instructions, not renally impaired, # 30 tablet, 0 Refills, Maintenance, 09/23/21 15:45:00 EDT, [facility] #[id number], Partial fill upon patient request if the prescription is for a schedule II opioid drug., foll... Start Date: 09/23/21 Status: Ordered PEG-3350 with Electrolytes (Eqv-GoLYTELY) oral powder for reconstitution See Instructions, 1 glass every 15-30 minutes until finished, # 4,000 mL, 0 Refills, Maintenance, 08/26/20 16:28:00 EDT, [facility] #[id number], Partial fill upon patient request if the prescription is for a schedule II opioid drug., 1 glass ever... Start Date: 08/26/20 Status: Ordered ProAir HFA 90 mcg/inh inhalation aerosol with adapter 2, puffs, Inhalation, Every 6 hours, PRN, # 8.5 Gm, Refills 5, Tot. Refills 5, Maintenance, 07/04/20 8:18:00 EST, Aerosol, Route to Pharmacy Electronically, [id number], [facility] #[id number], 168, cm, 06/14/20 10:38:00... Start Date: 07/04/20 [...] R63.4 length of use lifetime weight 130lbs 5'6, 12/27/20 12:47:00 EDT, Supply Start Date: 12/27/20 Status: Ordered tamsulosin 0.4 mg oral capsule 1, capsule, By Mouth, Daily, # 90 capsule, Refills 1, Route to Pharmacy Electronically, [facility] #[id number], 167.6, cm, 09/22/21 9:54:00 EDT, Height, 63.6, [...] FOR SLEEP, # 90 tablet, 1 Refills, [facility] #[id number], 167.6, cm, 09/22/21 9:54:00 EDT, Height, 63.6, [...] 2018. 2Repeat EGD in 07/2020 for surveillance 40917; repeat 2019 4R shoulder 2018 5DrShabnam Choi (ENT surgeons) Diagnosis Diagnosis Type Effective Dates Health Status Clinical Service Informant URI (upper respiratory infection) Discharge Diagnosis 11/06/21 Abscess of buttock Discharge Diagnosis 11/06/21 Vital Signs Most recent to oldest [Reference Range]: 1 Height 167.6 cm (11/06/21 3:13 PM) Social History Social History Type Response Smoking Status Current every day herve toney entered on: 12/17/15 Sex
--- OUTSIDE RECORDS SUMMARY | 2022-12-14 11:04 | XMS_ITS | Continuity of Care Document ---
Author Name Unknown Organization [facility] kiel Address [address] [place] [address] [address] [place] [address]- Care Team Providers Care Fuel Quality Tech Name Role Phone Daniela BROWN, Casey Jiménez Primary Care Physician Encounter [facility] Date(s): 10/22/22 - 11/21/[address] [place] [address]- Attending Physician: Ana Del Angel Admitting Physician: AdmAna aguiar Referring Physician: AdmtrAna Allergies, Adverse Reactions, Alerts [...] Refuses 1Result Comment: [facility]:[id number] 2Result Comment: [facility]# [id number] 3Result Comment: [facility]# [address] [phone] 4Result Comment: Pt tolerated well. [facility] #[id number] 5Location History: [facility] 6Result Comment: [05/06/2017] [facility]:[id number] Medications aspirin 81 mg oral delayed release tablet 1 tablet, By Mouth, Daily, # 90 tablet, 3 Refills, Maintenance, 06/09/22 10:43:00 EST, [facility] #[id number], 167.6, cm, 06/09/22 10:24:00 EST, Height, 63.6, kg, 09/22/21 9:54:00 EDT, Dry Weight Start Date: 06/09/22 Status: Ordered atorvastatin 80 mg oral tablet 1 tablet, By Mouth, Daily at bedtime, # 90 tablet, 0 Refills, Maintenance, 09/02/22 8:23:00 EDT, [facility] #[id number], 167.6, cm, 06/16/22 7:22:00 EST, Height, 63.6, kg, 09/22/21 9:54:00 EDT, Dry Weight Start Date: 09/02/22 Status: Ordered EpiPen 2-Sameer 0.3 mg injectable kit = 0.3 mg, Intramuscular, Once, Must go to hospital if used, # 1 each, 1 Refills, Soft Stop, 01/09/21 14:45:00 EDT, [facility] #[id number], 167.64, cm, 01/09/21 14:27:00 EDT, Height, 63.64, kg, 10/30/20 11:22:00 EDT, Dry Weight Start Date: 01/09/21 Status: Ordered gabapentin 300 mg oral capsule 2, capsule, By Mouth, 2 times a day, # 120 capsule, Refills 5, Maintenance, 11/05/22 11:24:00 EDT, Route to Pharmacy Electronically, [facility] #[id number], 167.6, cm, 10/22/22 8:47:00 EDT, Height, 63.6, [...] tablet, 3 Refills, Maintenance, 06/09/22 10:44:00 EST, [facility] #[id number], 90, 1 tablet By Mouth Daily, 167.6, cm, 06/09/22 10:24:00 EST, Height, 63.6, kg, 09/22/21 9:54:00 EDT, Dry Weight Start Date: 06/09/22 Status: Ordered Nutritional Supplements See Instructions, # 90 each, Refills 11, Tot. Refills 11, Maintenance, High Protein Ensure Use TID DX Pancreatitis, Weight Loss ICD 10 K85.90 R63.4 3 [facility] 3 Vanilla Height 5'6 Weight 130lbs, 12/20/20 7:33:00 EDT, Supply Start Date: 12/20/20 Status: Ordered omeprazole 40 mg oral enteric coated capsule 1 capsule, By Mouth, Daily, # 30 capsule, 2 Refills, Maintenance, 09/01/22 10:42:00 EDT, [facility] #[id number], 167.6, cm, 06/16/22 7:22:00 EST, Height, 63.6, kg, 09/22/21 9:54:00 EDT, Dry Weight Start Date: 09/01/22 Status: Ordered PEG-3350 with Electrolytes (Eqv-GoLYTELY) oral powder for reconstitution See Instructions, 1 glass every 15-30 minutes until finished, # 4,000 mL, 0 Refills, Maintenance, 08/26/20 16:28:00 EDT, [facility] #[id number], Partial fill upon patient request if the prescription is for a schedule II opioid drug., 1 glass ever... Start Date: 08/26/20 Status: Ordered ProAir HFA 90 mcg/inh inhalation aerosol with adapter 2, puffs, Inhalation, Every 6 hours, PRN, # 8.5 Gm, Refills 5, Tot. Refills 5, Maintenance, 07/04/20 8:18:00 EST, Aerosol, Route to Pharmacy Electronically, [id number], [facility] #[id number], 168, cm, 06/14/20 10:38:00... Start Date: 07/04/20 [...] 10/15/22 9:26:00 EDT, Route to Pharmacy Electronically, [facility] #[id number], 167.6, cm, 10/15/22 9:15:00 EDT, Height, 63.6, kg, 09/22/21 9:54:00 EDT, [facility].. Start Date: 10/15/22 Stop Date: 10/10/23 Status: [...] 90 tablet, 1 Refills, Maintenance,09/02/22 10:55:00 EDT, [facility] #[id number], 167.6, cm, 06/16/22 7:22:00 EST, Height, 63.6, [...] 2019. 2Repeat EGD in 07/2020 for surveillance 21283; repeat 2019 4R shoulder 2018 5Dr. Jimbo (ENT surgeons) Social History Social History Type Response Smoking Status 10 or more cigarette s (1/2 pack or more)/day in last 30 days entered on: 03/13/22 Sex Patient Care team information Care Team Personnel Name: April Landrum RN Position: [facility] RN Member Role: Primary Care Nurse Name: Talib Jensen RN Position: [facility] RN Member Role: Primary Care Nurse Name: Casey Suarez MD Position: [facility] Physician - Primary Care Member Role: PCP Address: Address: [address] [place] [id number] Name: Betty Rodriguez RN Position: [facility] RN Member Role: Primary Care Nurse Name: Damon Elaine RN Position: [facility] SN RN Member Role: Primary Care Nurse Name: Neelima Manrique RN Position: [facility] RN Member Role: Primary Care Nurse Name: Maddison Lindquist RN Position: [facility] SN RN Member Role: Primary Care Nurse Name: Mahesh Castillo RN Position: [facility] RN Member Role: Primary Care Nurse Name: Desiree Caballero RN Position: [facility] Recruiter Account Manager Member Role: Primary Care Nurse Name: Melvina Palacios RN Position: [facility] RN Member Role: Primary Care Nurse Name: Diandra Méndez RN Position: [facility] RN Member Role: Primary Care Nurse Care Team Related Persons Name: LAYLA NARAYANAN Address: [address] [address]
--- OUTSIDE RECORDS SUMMARY | 2022-12-14 11:04 | XMS_ITS | Continuity of Care Document ---
Author Name Unknown Organization [facility] [place] Address [address] [place] [address]- Care Team Providers Care Glove Sewer Name Role Phone Casey Suarez MD Primary Care Physician [phone] Encounter [facility] Date(s): 09/09/20 - 10/09/20 [facility] Adult [address] [place] [address]- Allergies, Adverse Reactions, Alerts Substance Reaction Severity [...] Refuses 1Result Comment: Pt tolerated well. [facility] #[id number] 2Location History: [facility] 3Result Comment: [05/06/2017] [facility]:[id number] Medications aspirin 81 mg oral delayed release [...] capsule, 3 Refills, Maintenance, 08/07/19 11:39:00 EDT, [facility] #[id number], 1 capsule By Mouth 3 times a [...] Formula TID DX Pancreatitis Weight Loss 3 [place] 1 Vanilla, 08/28/20 7:45:00 EDT, Compound Start [...] 04/22/20 13:38:00 EST, Route to Pharmacy Electronically, [email or web address] #[id number], Partial fill upon patient request, 168, cm, 04/22/20 12:49:00 EST,... Start Date: 04/22/20 Status: Ordered isosorbide mononitrate 30 mg oral tablet, extended release See Instructions, 1/2 tablet By Mouth Daily in AM 30 days, # 15 tablet, Refills 3, Tot. Refills 3, Maintenance, 10/07/20 15:26:00 EDT, Instructions Replace Required Details, Route to Pharmacy Electronically, [email or web address] #[id number], Partial fill u... Start Date: 10/07/20 Status: Ordered multivitamin Multiple Vitamins oral tablet 1 tablet, By Mouth, Daily, # 30 tablet, 5 Refills, Maintenance, 04/22/20 13:08:00 EST, Tablet, [email or web address] #[id number], 1 tablet By Mouth Daily,x30 days, 168, cm, 04/22/20 12:49:00 EST, Height, 63.5, kg, 08/07/19 9:46:00 EDT, Dry Weight Start Date: 04/22/20 Stop Date: 10/19/20 Status: Ordered omeprazole 40 mg oral enteric coated capsule 1 capsule = 40 mg, By Mouth, Daily, # 30 capsule, 10 Refills, Maintenance, 04/22/20 13:08:00 EST, EC Capsule, [email or web address] #[id number], 168, cm, 04/22/20 12:49:00 EST, Height, 63.5, [...] mL, 0 Refills, Maintenance, 08/26/20 16:28:00 EDT, [email or web address] #[id number], Partial fill upon patient request if the prescription is for a schedule II opioid drug., 1 glass ever... Start Date: 08/26/20 Status: Ordered ProAir HFA 90 mcg/inh inhalation aerosol with adapter 2, puffs, Inhalation, Every 6 hours, PRN, # 8.5 Gm, Refills 5, Tot. Refills 5, Maintenance, 07/04/20 8:18:00 EST, Aerosol, Route to Pharmacy Electronically, [id number], [email or web address] #[id number], 168, cm, 06/14/20 10:38:00... Start Date: 07/04/20 Status: Ordered tamsulosin 0.4 mg oral capsule 0.4 mg, 1, capsule, By Mouth, Daily, PER BELL HODGES, # 90 capsule, Refills 1, Tot. Refills 1, Maintenance, 04/29/20 16:06:00 EST, Route to Pharmacy Electronically, [facility] #[id number],Partial fill upon patient request, 168, cm, ... Start Date: 04/29/20 Status: Ordered traZODone 150 mg oral tablet 1 tablet, By Mouth, Daily at bedtime, PRN NEEDED FOR SLEEP, # 30 tablet, 5 Refills, Maintenance,04/22/20 13:08:00 EST, [facility] #[id number], 168, cm, 04/22/20 12:49:00 EST, Height, 63.5, [...] 2019. 2Repeat EGD in 07/2020 for surveillance 91988; repeat 2019 4R shoulder 2018 5Dr. Jimbo (ENT surgeons) Social History Social History Type Response Smoking Status Current every day herve toney entered on: 12/17/15 Sex
--- OUTSIDE RECORDS SUMMARY | 2022-12-14 11:04 | XMS_ITS | Continuity of Care Document ---
Author Name Unknown Organization [facility] [place] Address [address] [place] [address]- Care Team Providers Care Machine Heel Builder Name Role Phone Casey Suarez MD Primary Care Physician Encounter [facility] Date(s): 07/24/20 - 08/23/20 [facility] Adult [address] [place] [address]- Allergies, Adverse Reactions, Alerts Substance Reaction Severity [...] Guardian Refuses 1Result Comment: Pt tolerated well. [facility] #[id number] 2Location History: [facility] 3Result Comment: [05/06/2017] [facility]:9423-2038-87 Medications Creon 36,000 units oral delayed release capsule 1 capsule, By Mouth, 3 times a day, with each meal, # 90 capsule, 3 Refills, Maintenance, 08/07/19 11:39:00 EDT, [facility] #[id number], 1 capsule By Mouth 3 times a day,Instr:with each meal, 168, cm, 08/07/19 9:46:00 EDT, Height, 63.5, kg, 08/06... Start Date: 08/07/19 Status: Ordered ENSURE/VANILLA ENSURE/VANILLA, See Instructions, # 6 pack/packet, Refills 11, Tot. Refills 11, Maintenance, [facility]ureMax Protein Formula TID DX Pancreatitis Weight Loss 3 [place] 1 Vanilla, 06/25/20 9:20:00 EST, Compound Start [...] 04/22/20 13:38:00 EST, Route to Pharmacy Electronically, [facility] #[id number], Partial fill upon patient request, 168, cm, 04/22/20 12:49:00 EST,... Start Date: 04/22/20 Status: Ordered multivitamin Multiple Vitamins oral tablet 1 tablet, By Mouth, Daily, # 30 tablet, 5 Refills, Maintenance, 04/22/20 13:08:00 EST, Tablet, [facility] #[id number], 1 tablet By Mouth Daily,x30 days, 168, cm, 04/22/20 12:49:00 EST, Height, 63.5, kg, 08/07/19 9:46:00 EDT, Dry Weight Start Date: 04/22/20 Stop Date: 10/19/20 Status: Ordered omeprazole 40 mg oral enteric coated capsule 1 capsule = 40 mg, By Mouth, Daily, # 30 capsule, 10 Refills, Maintenance, 04/22/20 13:08:00 EST, EC Capsule, [facility] #[id number], 168, cm, 04/22/20 12:49:00 EST, Height, 63.5, kg, 08/07/19 9:46:00 EDT, Dry Weight Start Date: 04/22/20 Stop Date: 03/18/21 Status: Ordered OXcarbazepine 300 mg oral tablet 300 mg, 1, tablet, By Mouth, 2 times a day, 1 tablet in am 2 tablet at hs, Refills 0, Maintenance, 07/25/19 10:18:00 EST Start Date: 07/25/19 Status: Ordered ProAir HFA 90 mcg/inh inhalation aerosol with adapter 2, puffs, Inhalation, Every 6 hours, PRN, # 8.5 Gm, Refills 5, Tot. Refills 5, Maintenance, 07/04/20 8:18:00 EST, Aerosol, Route to Pharmacy Electronically, [id number], [facility] #[id number], 168, cm, 06/14/20 10:38:00... Start Date: 07/04/20 Status: Ordered tamsulosin 0.4 mg oral capsule 0.4 mg, 1, capsule, By Mouth, Daily, PER BELL HODGES, # 90 capsule, Refills 1, Tot. Refills 1, Maintenance, 04/29/20 16:06:00 EST, Route to Pharmacy Electronically, [facility] #[id number],Partial fill upon patient request, 168, cm, ... Start Date: 04/29/20 Status: Ordered traZODone 150 mg oral tablet 1 tablet, By Mouth, Daily at bedtime, PRN NEEDED FOR SLEEP, # 30 tablet, 5 Refills, Maintenance,04/22/20 13:08:00 EST, [facility] #57509, 168, cm, 04/22/20 12:49:00 EST, Height, 63.5, [...] 2019. 2Repeat EGD in 07/2020 for surveillance 32381; repeat 2019 4R shoulder 2018 5DrShabnam Choi (ENT surgeons) Social History Social History Type Response Smoking Status Current every day herve toney entered on: 12/17/15 Sex
--- OUTSIDE RECORDS SUMMARY | 2022-12-14 11:04 | XMS_ITS | Continuity of Care Document ---
Author Name Unknown Organization [facility] [place] Address [address] [place] [address]- Care Team Providers Care Glass Installer Name Role Phone Casey Suarez MD Primary Care Physician [phone] Encounter [facility] Date(s): 05/02/20 - 06/01/20 [facility] Adult [address] [place] [address]- Allergies, Adverse Reactions, Alerts Substance Reaction Severity [...] Pt tolerated well. [facility] #[id number] 2Location History: [facility] 3Result Comment: [05/06/2017] [facility]:2694-6734-00 Medications albuterol 0.083% inhalation solution 3 mL = 2.5 mg, Inhalation, Every 6 hours, # 120 each, 2 Refills, Maintenance, 04/30/20 11:23:00 EST, Solution, [facility] #[id number], 168, cm, 04/30/20 11:04:00 EST, Height, 63.5, [...] Refills, Soft Stop, 05/03/20 16:00:00 EST, Tablet, [facility] #[id number], Partial fill upon patient request if the prescription is for a schedule IIopioid drug., 168, cm, 04/30/20 11:04:00 EST, Heigh... Start Date: 05/03/20 Status: Ordered Creon 36,000 units oral delayed release capsule 1 capsule, By Mouth, 3 times a day, with each meal, # 90 capsule, 3 Refills, Maintenance, 08/07/19 11:39:00 EDT, [facility] #[id number], 1 capsule By Mouth 3 times a day,Instr:with each meal, 168, cm, 08/07/19 9:46:00 EDT, Height, 63.5, kg, 08/06... Start Date: 08/07/19 Status: Ordered Crestor 40 mg oral tablet 1 tablet = 40 mg, By Mouth, Daily, # 90 tablet, 3 Refills, Maintenance, 04/22/20 13:08:00 EST, Tablet, [facility] #07530, 168, cm, 04/22/20 12:49:00 EST, Height, 63.5, [...] 04/22/20 13:38:00 EST, Route to Pharmacy Electronically, [facility] #[id number], Partial fill upon patient request, 168, cm, [...] 5 Refills, Maintenance, 04/22/20 13:08:00 EST, Tablet, [facility] #[id number], 1 tablet By Mouth Daily,x30 days, 168, cm, 04/22/20 12:49:00 EST, Height, 63.5, kg, 08/07/19 9:46:00 EDT, Dry Weight Start Date: 04/22/20 Stop Date: 10/19/20 Status: Ordered omeprazole 40 mg oral enteric coated capsule 1 capsule = 40 mg, By Mouth, Daily, # 30 capsule, 10 Refills, Maintenance, 04/22/20 13:08:00 EST, EC Capsule, [facility] #21463, 168, cm, 04/22/20 12:49:00 EST, Height, 63.5, [...] tablet, 0 Refills, Maintenance, 05/03/20 16:00:00 EST, [facility] #[id number], Partial fill upon patient request if the prescription is for a schedule II opioid... Start Date: 05/03/20 Status: Ordered ProAir HFA 90 mcg/inh inhalation aerosol with adapter 2, puffs, Inhalation, Every 6 hours, PRN, # 8.5 Gm, Refills 2, Tot. Refills 2, Maintenance, 04/22/20 13:08:00 EST, Aerosol, Route to Pharmacy Electronically, [id number], [facility] #[id number], 168, cm, 04/22/20 12:49:00... Start Date: 04/22/20 Status: Ordered tamsulosin 0.4 mg oral capsule 0.4 mg, 1, capsule, By Mouth, Daily, PER BELL HODGES, # 90 capsule, Refills 1, Tot. Refills 1, Maintenance, 04/29/20 16:06:00 EST, Route to Pharmacy Electronically, [facility] #[id number],Partial fill upon patient request, 168, cm, ... Start Date: 04/29/20 Status: Ordered tiZANidine 4 mg oral capsule 2 capsule = 8 mg, By Mouth, 3 times a day, 0 Refills, Maintenance, 10/13/19 10:32:00 EDT Start Date: 10/13/19 Status: Ordered traZODone 150 mg oral tablet 1 tablet, By Mouth, Daily at bedtime, PRN NEEDED FOR SLEEP, # 30 tablet, 5 Refills, Maintenance,04/22/20 13:08:00 EST, [facility] #[id number], 168, cm, 04/22/20 12:49:00 EST, Height, 63.5, [...] 2018. 2Repeat EGD in 07/2020 for surveillance 81545; repeat 2019 4R shoulder [address] 5Dr. Jimbo (ENT surgeons) Social History Social History Type Response Smoking Status Current every day herve toney entered on: 12/17/15 Sex
--- OUTSIDE RECORDS SUMMARY | 2022-12-14 11:04 | XMS_ITS | Continuity of Care Document ---
Author Name Unknown Organization [facility] [place] Address [address] [place] [address]- Care Team Providers Care Degreasing Solution Reclaimer Name Role Phone Casey Suarez MD Primary Care Physician [phone] [facility]): [facility] - 12/06/21 [facility] Adult [address] [place] [address]- Attending Physician: Admtr, Ar8 Admitting Physician: Admtr, [...] Guardian Refuses 1Result Comment: [facility]# [address] [id number] 2Result Comment: Pt tolerated well. [facility] #[id number] 3Location History: [facility] 4Result Comment: [05/06/2017] [facility]:7763-0546-64 Medications aspirin 81 mg oral delayed release tablet 1 tablet, By Mouth, Daily, # 90 tablet, 0 Refills, [facility] #[id number], 167.6, cm, :54:00 EDT, Height, 63.6, kg, 09/22/21 9:54:00 EDT, Dry Weight Start Date: 10/10/21 Status: Ordered atorvastatin 80 mg oral tablet 1 tablet = 80 mg, By Mouth, Daily at bedtime, # 90 tablet, 3 Refills, Maintenance, 08/14/21 15:28:00 EDT, Tablet, [facility] #41045, 167.64, cm, 08/14/21 15:12:00 EDT, Height, 63.64, kg, 10/30/20 11:22:00 EDT, Dry Weight Start Date: 08/14/21 Stop Date: 08/09/22 Status: Ordered clopidogrel 75 mg oral tablet 75 mg, 1, tablet, By Mouth, Daily, # 30 tablet, Refills 11, Tot. Refills 11, Maintenance, 12/09/20 17:12:00 EDT, Route to Pharmacy Electronically, [facility] #[id number], Partial fill upon patient request if the prescription is for a schedule II... Start Date: 12/09/20 Status: Ordered EpiPen 2-Sameer 0.3 mg injectable kit = 0.3 mg, Intramuscular, Once, Must go to hospital if used, # 1 each, 1 Refills, Soft Stop, 01/09/21 14:45:00 EDT, [facility] #[id number], 167.64, cm, 01/09/21 14:27:00 EDT, Height, 63.64, [...] Mouth, Daily, # 90 tablet, 1 Refills, [facility] #40996, 167.6, cm, :54:00 EDT, Height, 63.6, kg, 09/22/21 9:54:00 EDT, Dry Weight Start Date: 10/06/21 Status: Ordered multivitamin Multiple Vitamins oral tablet 1 tablet, By Mouth, Daily, # 90 tablet, 1 Refills, [facility] #22363, 90, TAKE 1 TABLET BY MOUTH DAILY, 167.64, cm, 04/21/21 13:13:00 EST, Height, 63.64, kg, 10/30/20 11:22:00 EDT, Dry Weight Start Date: 07/10/21 Status: Ordered Nutritional Supplements See Instructions, # 90 each, Refills 11, Tot. Refills 11, Maintenance, High Protein Ensure Use TID DX Pancreatitis, Weight Loss ICD 10 K85.90 R63.4 3 [place] 3 Vanilla Height 5'6 Weight 130lbs, 12/20/20 7:33:00 EDT, Supply Start Date: 12/20/20 Status: Ordered omeprazole 40 mg oral enteric coated capsule 1 capsule = 40 mg, By Mouth, Daily, # 30 capsule, 2 Refills, Maintenance, 09/10/21 14:25:00 EDT, ECCapsule, [facility] #23503, 167.64, cm, 09/01/21 8:31:00 EDT, Height, 63.64, kg, 10/30/2110:22:00 EDT, Dry Weight Start Date: 09/10/21 Stop Date: 12/09/21 Status: Ordered Paxlovid 150 mg-100 mg oral tablet See Instructions, follow package instructions, not renally impaired, # 30 tablet, 0 Refills, Maintenance, 09/23/21 15:45:00 EDT, [facility] #79375, Partial fill upon patient request if the prescription is for a schedule II opioid drug., foll... Start Date: 09/23/21 Status: Ordered PEG-3350 with Electrolytes (Eqv-GoLYTELY) oral powder for reconstitution See Instructions, 1 glass every 15-30 minutes until finished, # 4,000 mL, 0 Refills, Maintenance, 08/26/20 16:28:00 EDT, [facility] #99556, Partial fill upon patient request if the prescription is for a schedule II opioid drug., 1 glass ever... Start Date: 08/26/20 Status: Ordered ProAir HFA 90 mcg/inh inhalation aerosol with adapter 2, puffs, Inhalation, Every 6 hours, PRN, # 8.5 Gm, Refills 5, Tot. Refills 5, Maintenance, 07/04/20 8:18:00 EST, Aerosol, Route to Pharmacy Electronically, [id number], [facility] #44998, 168, cm, 06/14/20 10:38:00... Start Date: 07/04/20 [...] capsule, Refills 1, Route to Pharmacy Electronically, [facility] #21781, 167.6, cm, 09/22/21 9:54:00 EDT, Height, 63.6, [...] FOR SLEEP, # 90 tablet, 1 Refills, [facility] #52671, 167.6, cm, 09/22/21 9:54:00 EDT, Height, 63.6, [...] infection)(Confirmed) Active 1Atherosclerosis by lumbar spine x-ray 2019. 2Repeat EGD in 07/2020 for surveillance 54178; repeat 2019 4R shoulder 2018 5DrShabnam Choi (ENT surgeons) Social History Social History Type Response Smoking Status Current every day herve toney entered on: 12/17/15 Sex
--- OUTSIDE RECORDS SUMMARY | 2022-12-14 11:04 | XMS_ITS | Continuity of Care Document ---
Author Name Unknown Organization [facility] [place] Address [address] [place] [address]- Care Team Providers Care Gold Marker Name Role Phone Casey Suarez MD Primary Care Physician [phone] [facility] 09[facility] - 10/30/21 [facility] Adult [address] [place] [address]- Allergies, Adverse Reactions, Alerts Substance Reaction Severity [...] en Parent Or Guardian Refuses 1Result Comment: [facility]# [address] [id number] 2Result Comment: Pt tolerated well. [facility] #88534-562-81 3Location History: [facility] 4Result Comment: [05/06/2017] [facility]:4925-7835-28 Medications aspirin 81 mg oral delayed release tablet 1 tablet, By Mouth, Daily, # 90 tablet, 0 Refills, [facility] #35732, 167.6, cm, :54:00 EDT, Height, 63.6, kg, 09/22/21 9:54:00 EDT, Dry Weight Start Date: 10/10/21 Status: Ordered atorvastatin 80 mg oral tablet 1 tablet = 80 mg, By Mouth, Daily at bedtime, # 90 tablet, 3 Refills, Maintenance, 08/14/21 15:28:00 EDT, Tablet, [facility] #43515, 167.64, cm, 08/14/21 15:12:00 EDT, Height, 63.64, kg, 10/30/20 11:22:00 EDT, Dry Weight Start Date: 08/14/21 Stop Date: 08/09/22 Status: Ordered clopidogrel 75 mg oral tablet 75 mg, 1, tablet, By Mouth, Daily, # 30 tablet, Refills 11, Tot. Refills 11, Maintenance, 12/09/20 17:12:00 EDT, Route to Pharmacy Electronically, [facility] #[id number], Partial fill upon patient request if the prescription is for a schedule II... Start Date: 12/09/20 Status: Ordered EpiPen 2-Sameer 0.3 mg injectable kit = 0.3 mg, Intramuscular, Once, Must go to hospital if used, # 1 each, 1 Refills, Soft Stop, 01/09/21 14:45:00 EDT, [facility] #96285, 167.64, cm, 01/09/21 14:27:00 EDT, Height, 63.64, [...] Mouth, Daily, # 90 tablet, 1 Refills, [facility] #01501, 167.6, cm, :54:00 EDT, Height, 63.6, kg, 09/22/21 9:54:00 EDT, Dry Weight Start Date: 10/06/21 Status: Ordered multivitamin Multiple Vitamins oral tablet 1 tablet, By Mouth, Daily, # 90 tablet, 1 Refills, [facility] #79799, 90, TAKE 1 TABLET BY MOUTH DAILY, 167.64, cm, 04/21/21 13:13:00 EST, Height, 63.64, kg, 10/30/20 11:22:00 EDT, Dry Weight Start Date: 07/10/21 Status: Ordered Nutritional Supplements See Instructions, # 90 each, Refills 11, Tot. Refills 11, Maintenance, High Protein Ensure Use TID DX Pancreatitis, Weight Loss ICD 10 K85.90 R63.4 3 [place] 3 Vanilla Height 5'6 Weight 130lbs, 12/20/20 7:33:00 EDT, Supply Start Date: 12/20/20 Status: Ordered omeprazole 40 mg oral enteric coated capsule 1 capsule = 40 mg, By Mouth, Daily, # 30 capsule, 2 Refills, Maintenance, 09/10/21 14:25:00 EDT, ECCapsule, [facility] #51593, 167.64, cm, 09/01/21 8:31:00 EDT, Height, 63.64, kg, 10/30/2110:22:00 EDT, Dry Weight Start Date: 09/10/21 Stop Date: 12/09/21 Status: Ordered Paxlovid 150 mg-100 mg oral tablet See Instructions, follow package instructions, not renally impaired, # 30 tablet, 0 Refills, Maintenance, 09/23/21 15:45:00 EDT, [facility] #01555, Partial fill upon patient request if the prescription is for a schedule II opioid drug., foll... Start Date: 09/23/21 Status: Ordered PEG-3350 with Electrolytes (Eqv-GoLYTELY) oral powder for reconstitution See Instructions, 1 glass every 15-30 minutes until finished, # 4,000 mL, 0 Refills, Maintenance, 08/26/20 16:28:00 EDT, [facility] #64904, Partial fill upon patient request if the prescription is for a schedule II opioid drug., 1 glass ever... Start Date: 08/26/20 Status: Ordered ProAir HFA 90 mcg/inh inhalation aerosol with adapter 2, puffs, Inhalation, Every 6 hours, PRN, # 8.5 Gm, Refills 5, Tot. Refills 5, Maintenance, 07/04/20 8:18:00 EST, Aerosol, Route to Pharmacy Electronically, [id number], [facility] #[id number], 168, cm, 06/14/20 10:38:00... Start Date: 07/04/20 [...] capsule, Refills 1, Route to Pharmacy Electronically, [facility] #52133, 167.6, cm, 09/22/21 9:54:00 EDT, Height, 63.6, [...] FOR SLEEP, # 90 tablet, 1 Refills, [facility] #59658, 167.6, cm, 09/22/21 9:54:00 EDT, Height, 63.6, [...] 2019. 2Repeat EGD in 07/2020 for surveillance 30276; repeat 2019 4R shoulder 2018 5Dr. Jimbo (ENT surgeons) Social History Social History Type Response Smoking Status Current every day herve toney entered on: 12/17/15 Sex
--- OUTSIDE RECORDS SUMMARY | 2022-12-14 11:04 | XMS_ITS | Continuity of Care Document ---
Author Name Unknown Organization [facility] [place] Address [address] [place] [address]- Care Team Providers Care Physician Non Invasive Cardiologist Name Role Phone Casey Suarez MD Primary Care Physician [facility] 09[facility]21 - 10/23/21 [facility] Adult [address] [place] [address]- Allergies, Adverse Reactions, Alerts Substance Reaction Severity [...] en Parent Or Guardian Refuses 1Result Comment: [facility]# [address] [id number] 2Result Comment: Pt tolerated well. [facility] #83908-975-74 3Location History: [facility] 4Result Comment: [05/06/2017] [facility]:5999-8976-22 Medications aspirin 81 mg oral delayed release tablet 1 tablet, By Mouth, Daily, # 90 tablet, 0 Refills, [facility] #[id number], 167.6, cm, :54:00 EDT, Height, 63.6, kg, 09/22/21 9:54:00 EDT, Dry Weight Start Date: 10/10/21 Status: Ordered atorvastatin 80 mg oral tablet 1 tablet = 80 mg, By Mouth, Daily at bedtime, # 90 tablet, 3 Refills, Maintenance, 08/14/21 15:28:00 EDT, Tablet, [facility] #[id number], 167.64, cm, 08/14/21 15:12:00 EDT, Height, 63.64, kg, 10/30/20 11:22:00 EDT, Dry Weight Start Date: 08/14/21 Stop Date: 08/09/22 Status: Ordered clopidogrel 75 mg oral tablet 75 mg, 1, tablet, By Mouth, Daily, # 30 tablet, Refills 11, Tot. Refills 11, Maintenance, 12/09/20 17:12:00 EDT, Route to Pharmacy Electronically, [facility] #[id number], Partial fill upon patient request if the prescription is for a schedule II... Start Date: 12/09/20 Status: Ordered EpiPen 2-Sameer 0.3 mg injectable kit = 0.3 mg, Intramuscular, Once, Must go to hospital if used, # 1 each, 1 Refills, Soft Stop, 01/09/21 14:45:00 EDT, [facility] #53852, 167.64, cm, 01/09/21 14:27:00 EDT, Height, 63.64, [...] Mouth, Daily, # 90 tablet, 1 Refills, [facility] #[id number], 167.6, cm, :54:00 EDT, Height, 63.6, kg, 09/22/21 9:54:00 EDT, Dry Weight Start Date: 10/06/21 Status: Ordered multivitamin Multiple Vitamins oral tablet 1 tablet, By Mouth, Daily, # 90 tablet, 1 Refills, [facility] #41584, 90, TAKE 1 TABLET BY MOUTH DAILY, 167.64, cm, 04/21/21 13:13:00 EST, Height, 63.64, kg, 10/30/20 11:22:00 EDT, Dry Weight Start Date: 07/10/21 Status: Ordered Nutritional Supplements See Instructions, # 90 each, Refills 11, Tot. Refills 11, Maintenance, High Protein Ensure Use TID DX Pancreatitis, Weight Loss ICD 10 K85.90 R63.4 3 [place] 3 Vanilla Height 5'6 Weight 130lbs, 12/20/20 7:33:00 EDT, Supply Start Date: 12/20/20 Status: Ordered omeprazole 40 mg oral enteric coated capsule 1 capsule = 40 mg, By Mouth, Daily, # 30 capsule, 2 Refills, Maintenance, 09/10/21 14:25:00 EDT, ECCapsule, [facility] #50379, 167.64, cm, 09/01/21 8:31:00 EDT, Height, 63.64, kg, 10/30/2110:22:00 EDT, Dry Weight Start Date: 09/10/21 Stop Date: 12/09/21 Status: Ordered Paxlovid 150 mg-100 mg oral tablet See Instructions, follow package instructions, not renally impaired, # 30 tablet, 0 Refills, Maintenance, 09/23/21 15:45:00 EDT, [facility] #[id number], Partial fill upon patient request if the prescription is for a schedule II opioid drug., foll... Start Date: 09/23/21 Status: Ordered PEG-3350 with Electrolytes (Eqv-GoLYTELY) oral powder for reconstitution See Instructions, 1 glass every 15-30 minutes until finished, # 4,000 mL, 0 Refills, Maintenance, 08/26/20 16:28:00 EDT, [facility] #[id number], Partial fill upon patient request if the prescription is for a schedule II opioid drug., 1 glass ever... Start Date: 08/26/20 Status: Ordered ProAir HFA 90 mcg/inh inhalation aerosol with adapter 2, puffs, Inhalation, Every 6 hours, PRN, # 8.5 Gm, Refills 5, Tot. Refills 5, Maintenance, 07/04/20 8:18:00 EST, Aerosol, Route to Pharmacy Electronically, [id number], [facility] #[id number], 168, cm, 06/14/20 10:38:00... Start Date: 07/04/20 [...] capsule, Refills 1, Route to Pharmacy Electronically, [facility] #[id number], 167.6, cm, 09/22/21 9:54:00 EDT, Height, 63.6, [...] FOR SLEEP, # 90 tablet, 1 Refills, [facility] #27425, 167.6, cm, 09/22/21 9:54:00 EDT, Height, 63.6, [...] 2019. 2Repeat EGD in 07/2020 for surveillance 58393; repeat 2019 4R shoulder 2018 5Dr. Jimbo (ENT surgeons) Social History Social History Type Response Smoking Status Current every day herve toney entered on: 12/17/15 Sex
--- OUTSIDE RECORDS SUMMARY | 2022-12-14 11:04 | XMS_ITS | Continuity of Care Document ---
Author Name Unknown Organization [facility] [place] Address [address] [place] [address]- Care Team Providers Care Cell Repairer Name Role Phone Casey Suarez MD Primary Care Physician [facility]20 - 10/24/20 [facility] Adult [address] [place] [address]- Allergies, Adverse Reactions, Alerts Substance Reaction Severity [...] tolerated well. [facility] #[id number] 2Location History: [facility] 3Result Comment: [05/06/2017] [facility]:2724-8879-64 Medications aspirin 81 mg oral delayed release [...] Formula TID DX Pancreatitis Weight Loss 3 [place] 1 Vanilla, 08/28/20 7:45:00 EDT, Compound Start [...] 04/22/20 13:38:00 EST, Route to Pharmacy Electronically, [facility] #[id number], Partial fill upon patient request, 168, cm, 04/22/20 12:49:00 EST,... Start Date: 04/22/20 Status: Ordered isosorbide mononitrate 30 mg oral tablet, extended release See Instructions, 1/2 tablet By Mouth Daily in AM 30 days, # 15 tablet, Refills 3, Tot. Refills 3, Maintenance, 10/07/20 15:26:00 EDT, Instructions Replace Required Details, Route to Pharmacy Electronically, [facility] #[id number], Partial fill u... Start Date: 10/07/20 Status: Ordered metoprolol 50 mg oral tablet, extended release 50 mg, 1, tablet, By Mouth, Daily, # 30 tablet, Refills 3, Tot. Refills 3, Maintenance, 10/16/20 13:19:00 EDT, Route to Pharmacy Electronically, [facility] #[id number], Partial fill upon patientrequest if the prescription is for a schedule II op... Start Date: 10/16/20 Stop Date: 02/13/21 Status: Ordered multivitamin Multiple Vitamins oral tablet 1 tablet, By Mouth, Daily, # 30 tablet, 5 Refills, Maintenance, 04/22/20 13:08:00 EST, Tablet, [facility] #[id number], 1 tablet By Mouth Daily,x30 days, 168, cm, 04/22/20 12:49:00 EST, Height, 63.5, kg, 08/07/19 9:46:00 EDT, Dry Weight Start Date: 04/22/20 Stop Date: 10/19/20 Status: Ordered omeprazole 40 mg oral enteric coated capsule 1 capsule = 40 mg, By Mouth, Daily, # 30 capsule, 10 Refills, Maintenance, 04/22/20 13:08:00 EST, EC Capsule, [facility] #30443, 168, cm, 04/22/20 12:49:00 EST, Height, 63.5, [...] mL, 0 Refills, Maintenance, 08/26/20 16:28:00 EDT, [facility] #[id number], Partial fill upon patient request if the prescription is for a schedule II opioid drug., 1 glass ever... Start Date: 08/26/20 Status: Ordered ProAir HFA 90 mcg/inh inhalation aerosol with adapter 2, puffs, Inhalation, Every 6 hours, PRN, # 8.5 Gm, Refills 5, Tot. Refills 5, Maintenance, 07/04/20 8:18:00 EST, Aerosol, Route to Pharmacy Electronically, [id number], [facility] #[id number], 168, cm, 06/14/20 10:38:00... Start Date: 07/04/20 Status: Ordered tamsulosin 0.4 mg oral capsule 0.4 mg, 1, capsule, By Mouth, Daily, PER BELL HODGES, # 90 capsule, Refills 1, Tot. Refills 1, Maintenance, 10/16/20 8:15:00 EDT, Route to Pharmacy Electronically, [facility] #[id number], Partial fill upon patient request, 168, cm, 10/16/20... Start Date: 10/16/20 Status: Ordered traZODone 150 mg oral tablet 1 tablet, By Mouth, Daily at bedtime, PRN NEEDED FOR SLEEP, # 90 tablet, 1 Refills, Maintenance,10/16/20 8:15:00 EDT, [facility] #[id number], 168, cm, 10/16/20 7:49:00 EDT, Height, 60, [...] 2019. 2Repeat EGD in 07/2020 for surveillance 44630; repeat 2019 4R shoulder [address] 5Dr[address] Jimbo (ENT surgeons) Social History Social History Type Response Smoking Status Current every day herve toney entered on: 12/17/15 Sex
--- OUTSIDE RECORDS SUMMARY | 2022-12-14 11:04 | XMS_ITS | Continuity of Care Document ---
Author Name Unknown Organization [facility] [place] Address [address] [place] [address]- Care Team Providers Care Php Programmer Name Role Phone Casey Suarez MD Primary Care Physician [facility] 12[facility]28[facility]19 - 01/27/20 [facility] Adult [address] [place] [address]- [facility] Allergies, Adverse Reactions, Alerts Substance Reaction Severity [...] Refuses 1Result Comment: Pt tolerated well. [facility] #[id number] 2Location History: [facility] 3Result Comment: [05/06/2017] [facility]:0724-5187-90 Medications albuterol 0.083% inhalation solution 3 mL [...] capsule, 3 Refills, Maintenance, 08/07/19 11:39:00 EDT, [facility] #[id number], 1 capsule By Mouth 3 times a day,Instr:with each meal, 168, cm, 08/07/19 9:46:00 EDT, Height, 63.5, kg, 08/06... Start Date: 08/07/19 Status: Ordered Crestor 40 mg oral tablet 1 tablet = 40 mg, By Mouth, Daily, # 90 tablet, 3 Refills, Maintenance, 12/28/19 11:53:00 EDT, Tablet, [facility] #[id number], 168, cm, 10/13/19 10:19:00 EDT, Height, 63.5, [...] 11/24/19 11:21:00 EDT, Route to Pharmacy Electronically, [facility] #[id number], 168, cm, 10/13/19 10:19:00 EDT,... Start Date: 11/24/19 Stop Date: 05/22/20 Status: Ordered folic acid 1 mg oral tablet 1 mg, 1, tablet, By Mouth, Daily, TK 1 T PO QD, # 30 tablet, Refills 5, Tot. Refills 5, Maintenance, 05/22/20 11:21:00 EST, Route to Pharmacy Electronically, [facility] #[id number], 168, cm, 10/13/19 10:19:00 EDT, Height, 63.5, kg, 08/07/19 9:46:... Start Date: 05/22/20 Stop Date: 11/18/20 Status: Ordered lisinopril 10 mg oral tablet See Instructions, TAKE 1 TABLET BY MOUTH EVERY DAY, # 30 tablet, Refills 5, Tot. Refills 5, Soft Stop, 08/28/19 10:33:00 EDT, Instructions Replace Required Details, Route to Pharmacy Electronically, [facility] #67052, 168, cm, 08/07/19 9:46:... Start Date: 08/28/19 Status: Ordered multivitamin Multiple Vitamins oral tablet 1 tablet, By Mouth, Daily, # 30 tablet, 5 Refills, Maintenance, 11/27/19 12:09:00 EDT, Tablet, [facility] #10873, 1 tablet By Mouth Daily,x30 days, 168, cm, 10/13/19 10:19:00 EDT, Height, 63.5, kg, 08/07/19 9:46:00 EDT, Dry Weight Start Date: 11/27/19 Stop Date: 05/25/20 Status: Ordered omeprazole 40 mg oral enteric coated capsule 1 capsule = 40 mg, By Mouth, Daily, # 30 capsule, 10 Refills, Maintenance, 08/14/19 8:52:00 EDT, ECCapsule, [facility] #33932, 168, cm, 08/07/19 9:46:00 EDT, Height, 63.5, [...] 16:26:00 EST, Aerosol, Route to Pharmacy Electronically, [id number], [facility] #[id number], 168, cm, 07/24/19 9:01:00... Start Date: 07/24/19 [...] 30 tablet, 5 Refills, Maintenance,12/28/19 11:34:00 EDT, [facility] #[id number], 168, cm, 10/13/19 10:19:00 EDT, Height, 63.5, [...] 2019. 2Repeat EGD in 07/2020 for surveillance 01519; repeat 2019 4R shoulder 2018 5Dr. Jimbo (ENT surgeons) Social History Social History Type Response Smoking Status Current every day herve toney entered on: 12/17/15 Sex
--- OUTSIDE RECORDS SUMMARY | 2022-12-14 11:04 | XMS_ITS | Continuity of Care Document ---
Author Name Unknown Organization [facility] [place] Address [address] [place] [address]- Care Team Providers Care Staff Nurse Icu Resource Team Name Role Phone Casey Suarez MD Primary Care Physician [phone] [facility] 08[facility]20 - 09/07/20 [facility] Adult [address] [place] [address]- Allergies, Adverse Reactions, Alerts Substance Reaction Severity [...] 1Result Comment: Pt tolerated well. [facility] #[id number] 2Location History: [facility] 3Result Comment: [05/06/2017] [facility]:9257-1989-20 Medications Creon 36,000 units oral delayed release capsule 1 capsule, By Mouth, 3 times a day, with each meal, # 90 capsule, 3 Refills, Maintenance, 08/07/19 11:39:00 EDT, [facility] #66283, 1 capsule By Mouth 3 times a day,Instr:with each meal, 168, cm, 08/07/19 9:46:00 EDT, Height, 63.5, kg, 08/06... Start Date: 08/07/19 Status: Ordered ENSURE/VANILLA ENSURE/VANILLA, See Instructions, # 6 pack/packet, Refills 11, Tot. Refills 11, Maintenance, EnsureMax Protein Formula TID DX Pancreatitis Weight Loss 3 [place] 1 Vanilla, 08/28/20 7:45:00 EDT, Compound Start [...] 04/22/20 13:38:00 EST, Route to Pharmacy Electronically, [facility] #[id number], Partial fill upon patient request, 168, cm, 04/22/20 12:49:00 EST,... Start Date: 04/22/20 Status: Ordered multivitamin Multiple Vitamins oral tablet 1 tablet, By Mouth, Daily, # 30 tablet, 5 Refills, Maintenance, 04/22/20 13:08:00 EST, Tablet, [facility] #[id number], 1 tablet By Mouth Daily,x30 days, 168, cm, 04/22/20 12:49:00 EST, Height, 63.5, kg, 08/07/19 9:46:00 EDT, Dry Weight Start Date: 04/22/20 Stop Date: 10/19/20 Status: Ordered omeprazole 40 mg oral enteric coated capsule 1 capsule = 40 mg, By Mouth, Daily, # 30 capsule, 10 Refills, Maintenance, 04/22/20 13:08:00 EST, EC Capsule, [facility] #83648, 168, cm, 04/22/20 12:49:00 EST, Height, 63.5, [...] mL, 0 Refills, Maintenance, 08/26/20 16:28:00 EDT, [facility] #08709, Partial fill upon patient request if the prescription is for a schedule II opioid drug., 1 glass ever... Start Date: 08/26/20 Status: Ordered ProAir HFA 90 mcg/inh inhalation aerosol with adapter 2, puffs, Inhalation, Every 6 hours, PRN, # 8.5 Gm, Refills 5, Tot. Refills 5, Maintenance, 07/04/20 8:18:00 EST, Aerosol, Route to Pharmacy Electronically, [id number], [facility] #[id number], 168, cm, 06/14/20 10:38:00... Start Date: 07/04/20 Status: Ordered tamsulosin 0.4 mg oral capsule 0.4 mg, 1, capsule, By Mouth, Daily, PER BELL HODGES, # 90 capsule, Refills 1, Tot. Refills 1, Maintenance, 04/29/20 16:06:00 EST, Route to Pharmacy Electronically, [facility] #[id number],Partial fill upon patient request, 168, cm, ... Start Date: 04/29/20 Status: Ordered traZODone 150 mg oral tablet 1 tablet, By Mouth, Daily at bedtime, PRN NEEDED FOR SLEEP, # 30 tablet, 5 Refills, Maintenance,04/22/20 13:08:00 EST, [facility] #54507, 168, cm, 04/22/20 12:49:00 EST, Height, 63.5, [...] 2019. 2Repeat EGD in 07/2020 for surveillance 64839; repeat 2019 4R shoulder 2018 5DrShabnam Choi (ENT surgeons) Social History Social History Type Response Smoking Status Current every day herve toney entered on: 12/17/15 Sex
--- OUTSIDE RECORDS SUMMARY | 2022-12-14 11:04 | XMS_ITS | Continuity of Care Document ---
Author Name Unknown Organization [facility] Address [address] [place] [address]- Care Team Providers Care Dehydrogenation Supervisor Name Role Phone Casey Suarez MD Primary Care Physician [facility]counter [facility] Date(s): 06/25/20 - 07/25/20 [facility] Adult [address] [place] [address]- Allergies, Adverse Reactions, Alerts Substance Reaction Severity [...] Pt tolerated well. [facility] #[id number] 2Location History: [place] 3Result Comment: [05/06/2017] [facility]:[id number] Medications albuterol 0.083% inhalation solution 3 mL = 2.5 mg, Inhalation, Every 6 hours, # 120 each, 2 Refills, Maintenance, 04/30/20 11:23:00 EST, Solution, [facility] #[id number], 168, cm, 04/30/20 11:04:00 EST, Height, 63.5, kg, 08/07/19 9:46:00 EDT, Dry Weight Start Date: 04/30/20 Status: Ordered Creon 36,000 units oral delayed release capsule 1 capsule, By Mouth, 3 times a day, with each meal, # 90 capsule, 3 Refills, Maintenance, 08/07/19 11:39:00 EDT, [facility] #[id number], 1 capsule By Mouth 3 times a day,Instr:with each meal, 168, cm, 08/07/19 9:46:00 EDT, Height, 63.5, kg, 08/06... Start Date: 08/07/19 Status: Ordered ENSURE/VANILLA ENSURE/VANILLA, See Instructions, # 6 pack/packet, Refills 11, Tot. Refills 11, Maintenance, EnsureMax Protein Formula TID DX Pancreatitis Weight Loss 3 [place] 1 Vanilla, 06/25/20 9:20:00 EST, Compound Start [...] 04/22/20 13:38:00 EST, Route to Pharmacy Electronically, [facility] #[id number], Partial fill upon patient request, 168, cm, [...] 5 Refills, Maintenance, 04/22/20 13:08:00 EST, Tablet, [facility] #[id number], 1 tablet By Mouth Daily,x30 days, 168, cm, 04/22/20 12:49:00 EST, Height, 63.5, kg, 08/07/19 9:46:00 EDT, Dry Weight Start Date: 04/22/20 Stop Date: 10/19/20 Status: Ordered omeprazole 40 mg oral enteric coated capsule 1 capsule = 40 mg, By Mouth, Daily, # 30 capsule, 10 Refills, Maintenance, 04/22/20 13:08:00 EST, EC Capsule, [facility] #77024, 168, cm, 04/22/20 12:49:00 EST, Height, 63.5, [...] 8:18:00 EST, Aerosol, Route to Pharmacy Electronically, [id number], [facility] #[id number], 168, cm, 06/14/20 10:38:00... Start Date: 07/04/20 Status: Ordered tamsulosin 0.4 mg oral capsule 0.4 mg, 1, capsule, By Mouth, Daily, PER BELL HODGES, # 90 capsule, Refills 1, Tot. Refills 1, Maintenance, 04/29/20 16:06:00 EST, Route to Pharmacy Electronically, [facility] #[id number],Partial fill upon patient request, 168, cm, ... Start Date: 04/29/20 Status: Ordered tiZANidine 4 mg oral capsule 2 capsule = 8 mg, By Mouth, 3 times a day, 0 Refills, Maintenance, 10/13/19 10:32:00 EDT Start Date: 10/13/19 Status: Ordered traZODone 150 mg oral tablet 1 tablet, By Mouth, Daily at bedtime, PRN NEEDED FOR SLEEP, # 30 tablet, 5 Refills, Maintenance,04/22/20 13:08:00 EST, [facility] #[id number], 168, cm, 04/22/20 12:49:00 EST, Height, 63.5, [...] 2019. 2Repeat EGD in 07/2020 for surveillance 83622; repeat 2019 4R shoulder 2018 5DrShabnam Choi (ENT surgeons) Social History Social History Type Response Smoking Status Current every day herve toney entered on: 12/17/15 Sex
--- OUTSIDE RECORDS SUMMARY | 2022-12-14 11:04 | XMS_ITS | Continuity of Care Document ---
Author Name Unknown Organization [facility] Address Unknown Care Team Providers Care Digital Color Press Operator Name Role Phone Casey Suarez MD Primary Care Physician Encounter [facility] Date(s): 07/16/21 - 07/23/21 [facility] Encounter Diagnosis Left buttock abscess(Discharge Diagnosis) - 07/16/21 Attending Physician: Devin Burleson Referring Physician: Casey [...] en Parent Or Guardian Refuses 1Result Comment: [facility] [address] [id number] 2Result Comment: Pt tolerated well. [facility] #[id number] 3Location History: [facility] 4Result Comment: [05/06/2017] [facility]:4808-7592-02 Medications aspirin 81 mg oral delayed release tablet 1 tablet, By Mouth, Daily, # 90 tablet, 0 Refills, [facility] #[id number], 167.64, cm, 04/21/21 13:13:00 EST, Height, 63.64, kg, 10/30/20 11:22:00 EDT, Dry Weight Start Date: 07/11/21 Status: Ordered atorvastatin 80 mg oral tablet 1 tablet = 80 mg, By Mouth, Daily at bedtime, # 90 tablet, 3 Refills, Maintenance, 02/12/21 10:54:00 EDT, Tablet, [facility] #26600, 167.64, cm, 01/13/21 9:46:00 EDT, Height, 63.64, kg, 10/30/20 11:22:00 EDT, Dry Weight Start Date: 02/12/21 Stop Date: 02/07/22 Status: Ordered clopidogrel 75 mg oral tablet 75 mg, 1, tablet, By Mouth, Daily, # 30 tablet, Refills 11, Tot. Refills 11, Maintenance, 12/09/20 17:12:00 EDT, Route to Pharmacy Electronically, [facility] #47589, Partial fill upon patient request if the prescription is for a schedule II... Start Date: 12/09/20 Status: Ordered EpiPen 2-Sameer 0.3 mg injectable kit = 0.3 mg, Intramuscular, Once, Must go to hospital if used, # 1 each, 1 Refills, Soft Stop, 01/09/21 14:45:00 EDT, [facility] #09025, 167.64, cm, 01/09/21 14:27:00 EDT, Height, 63.64, [...] 01/13/21 9:59:00 EDT, Route to Pharmacy Electronically, [facility] #57462, Partial fill upon patient request if the prescription is for a schedule II opi... Start Date: 01/13/21 Status: Ordered multivitamin Multiple Vitamins oral tablet 1 tablet, By Mouth, Daily, # 90 tablet, 1 Refills, [facility] #[id number], 90, TAKE 1 TABLET BY MOUTH DAILY, 167.64, cm, 04/21/21 13:13:00 EST, Height, 63.64, kg, 10/30/20 11:22:00 EDT, Dry Weight Start Date: 07/10/21 Status: Ordered Nutritional Supplements See Instructions, # 90 each, Refills 11, Tot. Refills 11, Maintenance, High Protein Ensure Use TID DX Pancreatitis, Weight Loss ICD 10 K85.90 R63.4 3 [place] 3 Vanilla Height 5'6 Weight 130lbs, 12/20/20 7:33:00 EDT, Supply Start Date: 12/20/20 Status: Ordered omeprazole 40 mg oral enteric coated capsule 1 capsule = 40 mg, By Mouth, Daily, # 30 capsule, 2 Refills, Maintenance, 01/14/21 14:05:00 EDT, ECCapsule, [facility] #56225, 167.64, cm, 01/13/21 9:46:00 EDT, Height, 63.64, kg, 10/30/2110:22:00 EDT, Dry Weight Start Date: 01/14/21 Stop Date: 04/14/21 Status: Ordered PEG-3350 with Electrolytes (Eqv-GoLYTELY) oral powder for reconstitution See Instructions, 1 glass every 15-30 minutes until finished, # 4,000 mL, 0 Refills, Maintenance, 08/26/20 16:28:00 EDT, [facility] #60128, Partial fill upon patient request if the prescription is for a schedule II opioid drug., 1 glass ever... Start Date: 08/26/20 Status: Ordered ProAir HFA 90 mcg/inh inhalation aerosol with adapter 2, puffs, Inhalation, Every 6 hours, PRN, # 8.5 Gm, Refills 5, Tot. Refills 5, Maintenance, 07/04/20 8:18:00 EST, Aerosol, Route to Pharmacy Electronically, [id number], [facility] #[id number], 168, cm, 06/14/20 10:38:00... Start Date: 07/04/20 [...] capsule, Refills 1, Route to Pharmacy Electronically, [facility] #05797, 167.64, cm, 03/20/21 8:49:00 EDT, Height, 63.64, [...] FOR SLEEP, # 90 tablet, 1 Refills, [facility] #27015, 167.64, cm, 03/20/21 8:49:00 EDT, Height, 63.64, [...] 2018. 2Repeat EGD in 07/2020 for surveillance 37453; repeat 2019 4R shoulder 2017 5Dr. Jimbo (ENT surgeons) Diagnosis Diagnosis Type Effective Dates Health Status Cl inical Service Informant Left buttock abscess Discharge Diagnosis 07/16/21 Vital Signs Most recent to oldest [Reference Range]: 1 Height 167.64 cm (07/16/21 9:02 AM) Weight 61.2 kg (07/16/21 9:02 AM) Pulse Rate [55-90 bpm] 46 bpm *L* (07/16/21 9:02 AM) Body Mass Index [18.5-24.99] 21.78 (07/16/21 9:02 AM) Blood Pressure [90-138/55-84 mm Hg] 116/ 57mm Hg (07/16/21 9:02 AM) Temperature [96.8-100.4 DegF] 98.1 DegF (07/16/21 9:02 AM) Blood pressure sites Arm, left (07/16/21 9:02 AM) Temperature Route Temporal (07/16/21 9:02 AM) Weight Obtained Via Standing scale (07/16/21 9:02 AM) Social History Social History Type Response Smoking Status Current every day herve toney entered on: 12/17/15 Sex
--- OUTSIDE RECORDS SUMMARY | 2022-12-14 11:04 | XMS_ITS | Continuity of Care Document ---
Author Name Unknown Organization [facility] Address [address] [place] [address]- Care Team Providers Care Dump Motorman Name Role Phone Casey Suarez MD Primary Care Physician [phone] Encounter [facility] Date(s): 04/30/20 - 05/07/20 [facility] Adult [address] [place] [address]- Attending Physician: Not on Staff, Attending MD [...] 1Result Comment: Pt tolerated well. [facility] #[id number] 2Location History: [place] 3Result Comment: [05/06/2017] [facility]:[id number] Medications albuterol 0.083% inhalation solution 3 mL = 2.5 mg, Inhalation, Every 6 hours, # 120 each, 2 Refills, Maintenance, 04/30/20 11:23:00 EST, Solution, [facility] #37689, 168, cm, 04/30/20 11:04:00 EST, Height, 63.5, [...] Refills, Soft Stop, 05/03/20 16:00:00 EST, Tablet, [facility] #[id number], Partial fill upon patient request if the prescription is for a schedule IIopioid drug., 168, cm, 04/30/20 11:04:00 EST, Heigh... Start Date: 05/03/20 Status: Ordered Creon 36,000 units oral delayed release capsule 1 capsule, By Mouth, 3 times a day, with each meal, # 90 capsule, 3 Refills, Maintenance, 08/07/19 11:39:00 EDT, [facility] #[id number], 1 capsule By Mouth 3 times a day,Instr:with each meal, 168, cm, 08/07/19 9:46:00 EDT, Height, 63.5, kg, 08/06... Start Date: 08/07/19 Status: Ordered Crestor 40 mg oral tablet 1 tablet = 40 mg, By Mouth, Daily, # 90 tablet, 3 Refills, Maintenance, 04/22/20 13:08:00 EST, Tablet, [facility] #85830, 168, cm, 04/22/20 12:49:00 EST, Height, 63.5, [...] 04/22/20 13:38:00 EST, Route to Pharmacy Electronically, [facility] #[id number], Partial fill upon patient request, 168, cm, [...] 5 Refills, Maintenance, 04/22/20 13:08:00 EST, Tablet, [facility] #18202, 1 tablet By Mouth Daily,x30 days, 168, cm, 04/22/20 12:49:00 EST, Height, 63.5, kg, 08/07/19 9:46:00 EDT, Dry Weight Start Date: 04/22/20 Stop Date: 10/19/20 Status: Ordered omeprazole 40 mg oral enteric coated capsule 1 capsule = 40 mg, By Mouth, Daily, # 30 capsule, 10 Refills, Maintenance, 04/22/20 13:08:00 EST, EC Capsule, [facility] #19452, 168, cm, 04/22/20 12:49:00 EST, Height, 63.5, [...] tablet, 0 Refills, Maintenance, 05/03/20 16:00:00 EST, [facility] #37146, Partial fill upon patient request if the prescription is for a schedule II opioid... Start Date: 05/03/20 Status: Ordered ProAir HFA 90 mcg/inh inhalation aerosol with adapter 2, puffs, Inhalation, Every 6 hours, PRN, # 8.5 Gm, Refills 2, Tot. Refills 2, Maintenance, 04/22/20 13:08:00 EST, Aerosol, Route to Pharmacy Electronically, [id number], [facility] #45915, 168, cm, 04/22/20 12:49:00... Start Date: 04/22/20 Status: Ordered tamsulosin 0.4 mg oral capsule 0.4 mg, 1, capsule, By Mouth, Daily, PER BELL HODGES, # 90 capsule, Refills 1, Tot. Refills 1, Maintenance, 04/29/20 16:06:00 EST, Route to Pharmacy Electronically, [facility] #23689,Partial fill upon patient request, 168, cm, ... Start Date: 04/29/20 Status: Ordered tiZANidine 4 mg oral capsule 2 capsule = 8 mg, By Mouth, 3 times a day, 0 Refills, Maintenance, 10/13/19 10:32:00 EDT Start Date: 10/13/19 Status: Ordered traZODone 150 mg oral tablet 1 tablet, By Mouth, Daily at bedtime, PRN NEEDED FOR SLEEP, # 30 tablet, 5 Refills, Maintenance,04/22/20 13:08:00 EST, [facility] #[id number], 168, cm, 04/22/20 12:49:00 EST, Height, 63.5, [...] 2019. 2Repeat EGD in 07/2020 for surveillance 55786; repeat 2019 4R shoulder 2017 5Dr. Jimbo (ENT surgeons) Vital Signs Most recent to oldest [Reference Range]: 1 Height 168 cm (04/30/20 11:04 AM) Social History Social History Type Response Smoking Status Current every day herve toney entered on: 12/17/15 Sex
--- OUTSIDE RECORDS SUMMARY | 2022-12-14 11:04 | XMS_ITS | Continuity of Care Document ---
Author Name Unknown Organization [facility] Address [address] [place] [address]- Care Team Providers Care Marble Polisher Hand Name Role Phone Casey Suarez MD Primary Care Physician Encounter [facility] Date(s): 01/15/21 - 02/14/21 [facility] [address] [place] [address]- Attending Physician: Ana Del Angel Admitting Physician: Admtr, Ana Referring Physician: Admtr, Ar8 Allergies, Adverse Reactions, [...] tolerated well. [facility] #[id number] 2Location History: [facility] 3Result Comment: [05/06/2017] [facility]:[id number] Medications aspirin 81 mg oral delayed release tablet 81 mg, 1, tablet, By Mouth, Daily, # 90 tablet, Refills 1, Tot. Refills 1, Maintenance, 01/09/21 14:52:00 EDT, Route to Pharmacy Electronically, [facility] #[id number], Partial fill upon patientrequest if the prescription is for a schedule II op... Start Date: 01/09/21 Status: Ordered atorvastatin 80 mg oral tablet 1 tablet = 80 mg, By Mouth, Daily at bedtime, # 90 tablet, 3 Refills, Maintenance, 02/12/21 10:54:00 EDT, Tablet, [facility] #[id number], 167.64, cm, 01/13/21 9:46:00 EDT, Height, 63.64, kg, 10/30/20 11:22:00 EDT, Dry Weight Start Date: 02/12/21 Stop Date: 02/07/22 Status: Ordered clopidogrel 75 mg oral tablet 75 mg, 1, tablet, By Mouth, Daily, # 30 tablet, Refills 11, Tot. Refills 11, Maintenance, 12/09/20 17:12:00 EDT, Route to Pharmacy Electronically, [facility] #[id number], Partial fill upon patient request if the prescription is for a schedule II... Start Date: 12/09/20 Status: Ordered EpiPen 2-Sameer 0.3 mg injectable kit = 0.3 mg, Intramuscular, Once, Must go to hospital if used, # 1 each, 1 Refills, Soft Stop, 01/09/21 14:45:00 EDT, [facility] #[id number], 167.64, cm, 01/09/21 14:27:00 EDT, Height, 63.64, [...] 01/13/21 9:59:00 EDT, Route to Pharmacy Electronically, [facility] #[id number], Partial fill upon patient request if the prescription is for a schedule II opi... Start Date: 01/13/21 Status: Ordered multivitamin Multiple Vitamins oral tablet 1 tablet, By Mouth, Daily, # 90 tablet, 1 Refills, Maintenance, 01/09/21 14:44:00 EDT, Tablet, [facility] #45918, 1 tablet By Mouth Daily, 167.64, cm, 01/09/21 14:27:00 EDT, Height, 63.64, kg, 10/30/20 11:22:00 EDT, Dry Weight Start Date: 01/09/21 Status: Ordered Nutritional Supplements See Instructions, # 90 each, Refills 11, Tot. Refills 11, Maintenance, High Protein Ensure Use TID DX Pancreatitis, Weight Loss ICD 10 K85.90 R63.4 3 [place] 3 Vanilla Height 5'6 Weight 130lbs, 12/20/20 7:33:00 EDT, Supply Start Date: 12/20/20 Status: Ordered omeprazole 40 mg oral enteric coated capsule 1 capsule = 40 mg, By Mouth, Daily, # 30 capsule, 2 Refills, Maintenance, 01/14/21 14:05:00 EDT, ECCapsule, [facility] #71615, 167.64, cm, 01/13/21 9:46:00 EDT, Height, 63.64, kg, 10/30/2110:22:00 EDT, Dry Weight Start Date: 01/14/21 Stop Date: 04/14/21 Status: Ordered PEG-3350 with Electrolytes (Eqv-GoLYTELY) oral powder for reconstitution See Instructions, 1 glass every 15-30 minutes until finished, # 4,000 mL, 0 Refills, Maintenance, 08/26/20 16:28:00 EDT, [facility] #[id number], Partial fill upon patient request if the prescription is for a schedule II opioid drug., 1 glass ever... Start Date: 08/26/20 Status: Ordered ProAir HFA 90 mcg/inh inhalation aerosol with adapter 2, puffs, Inhalation, Every 6 hours, PRN, # 8.5 Gm, Refills 5, Tot. Refills 5, Maintenance, 07/04/20 8:18:00 EST, Aerosol, Route to Pharmacy Electronically, [id number], [facility] #[id number], 168, cm, 06/14/20 10:38:00... Start Date: 07/04/20 [...] 10/16/20 8:15:00 EDT, Route to Pharmacy Electronically, [facility] #[id number], Partial fill upon patient request, 168, cm, [...] 90 tablet, 1 Refills, Maintenance,10/16/20 8:15:00 EDT, [facility] #59099, 168, cm, 10/16/20 7:49:00 EDT, Height, 60, [...] 2019. 2Repeat EGD in 07/2020 for surveillance 62374; repeat 2019 4R shoulder 2018 5DrShabnam Choi (ENT surgeons) Social History Social History Type Response Smoking Status Current every day herve toney entered on: 12/17/15 Sex
--- OUTSIDE RECORDS SUMMARY | 2022-12-14 11:04 | XMS_ITS | Continuity of Care Document ---
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 [facility] #[id number] 3Location History: [facility] 4Result Comment: [05/06/2017] [facility]:[id number] Medications aspirin 81 mg oral delayed release tablet 1 tablet, By Mouth, Daily, # 90 tablet, 0 Refills, [facility] #[id number], 167.64, cm, 04/21/21 13:13:00 EST, Height, 63.64, kg, 10/30/20 11:22:00 EDT, Dry Weight Start Date: 07/11/21 Status: Ordered atorvastatin 80 mg oral tablet 1 tablet = 80 mg, By Mouth, Daily at bedtime, # 90 tablet, 3 Refills, Maintenance, 08/14/21 15:28:00 EDT, Tablet, [facility] #29418, 167.64, cm, 08/14/21 15:12:00 EDT, Height, 63.64, kg, 10/30/20 11:22:00 EDT, Dry Weight Start Date: 08/14/21 Stop Date: 08/09/22 Status: Ordered clopidogrel 75 mg oral tablet 75 mg, 1, tablet, By Mouth, Daily, # 30 tablet, Refills 11, Tot. Refills 11, Maintenance, 12/09/20 17:12:00 EDT, Route to Pharmacy Electronically, [facility] #11426, Partial fill upon patient request if the prescription is for a schedule II... Start Date: 12/09/20 Status: Ordered EpiPen 2-Sameer 0.3 mg injectable kit = 0.3 mg, Intramuscular, Once, Must go to hospital if used, # 1 each, 1 Refills, Soft Stop, 01/09/21 14:45:00 EDT, [facility] #91540, 167.64, cm, 01/09/21 14:27:00 EDT, Height, 63.64, [...] Mouth, Daily, # 90 tablet, 1 Refills, [facility] #68547, 90, TAKE 1 TABLET BY MOUTH DAILY, 167.64, cm, 04/21/21 13:13:00 EST, Height, 63.64, kg, 10/30/20 11:22:00 EDT, Dry Weight Start Date: 07/10/21 Status: Ordered Nutritional Supplements See Instructions, # 90 each, Refills 11, Tot. Refills 11, Maintenance, High Protein Ensure Use TID DX Pancreatitis, Weight Loss ICD 10 K85.90 R63.4 3 [place] 3 Vanilla Height 5'6 Weight 130lbs, 12/20/20 7:33:00 EDT, Supply Start Date: 12/20/20 Status: Ordered omeprazole 40 mg oral enteric coated capsule 1 capsule = 40 mg, By Mouth, Daily, # 30 capsule, 2 Refills, Maintenance, 09/10/21 14:25:00 EDT, ECCapsule, [facility] #39334, 167.64, cm, 09/01/21 8:31:00 EDT, Height, 63.64, kg, 10/30/2110:22:00 EDT, Dry Weight Start Date: 09/10/21 Stop Date: 12/09/21 Status: Ordered PEG-3350 with Electrolytes (Eqv-GoLYTELY) oral powder for reconstitution See Instructions, 1 glass every 15-30 minutes until finished, # 4,000 mL, 0 Refills, Maintenance, 08/26/20 16:28:00 EDT, [facility] #95165, Partial fill upon patient request if the prescription is for a schedule II opioid drug., 1 glass ever... Start Date: 08/26/20 Status: Ordered ProAir HFA 90 mcg/inh inhalation aerosol with adapter 2, puffs, Inhalation, Every 6 hours, PRN, # 8.5 Gm, Refills 5, Tot. Refills 5, Maintenance, 07/04/20 8:18:00 EST, Aerosol, Route to Pharmacy Electronically, [id number], [facility] #05463, 168, cm, 06/14/20 10:38:00... Start Date: 07/04/20 [...] capsule, Refills 1, Route to Pharmacy Electronically, [facility] #10841, 167.64, cm, 03/20/21 8:49:00 EDT, Height, 63.64, [...] FOR SLEEP, # 90 tablet, 1 Refills, [facility] #86793, 167.64, cm, 03/20/21 8:49:00 EDT, Height, 63.64, [...] 2018. 2Repeat EGD in 07/2020 for surveillance 20025; repeat 2019 4R shoulder 2017 5Dr. Jimbo (ENT surgeons) Social History Social History Type Response Smoking Status Current every day herve toney entered on: 12/17/15 Sex
--- OUTSIDE RECORDS SUMMARY | 2022-12-14 11:04 | XMS_ITS | Continuity of Care Document ---
Author Name Unknown Organization [facility] [place] Address [address] [place] [address]- Care Team Providers Care Affirmative Action Officer Name Role Phone Daniela BROWN, Casey Jiménez Primary Care Physician [phone] Encounter [facility] Date(s): 03/20/21 - 03/27/21 [facility] Adult [address] [place] [address]- Encounter Diagnosis Abscess of buttock(Discharge Diagnosis) - 03/20/21 Attending Physician: Josey OSORIO, Tyra Willis Allergies, [...] Parent Or Guardian Refuses 1Result Comment: [facility] N[facility]ED [facility]# [address] [phone] 2Result Comment: Pt tolerated well. [facility]ED [facility] #[id number] 3Location History: [facility] 4Result Comment: [05/06/2017] [facility]:0383-8493-97 Medications aspirin 81 mg oral delayed release tablet 81 mg, 1, tablet, By Mouth, Daily, # 90 tablet, Refills 1, Tot. Refills 1, Maintenance, 01/09/21 14:52:00 EDT, Route to Pharmacy Electronically, [facility] #[id number], Partial fill upon patientrequest if the prescription is for a schedule II op... Start Date: 01/09/21 Status: Ordered atorvastatin 80 mg oral tablet 1 tablet = 80 mg, By Mouth, Daily at bedtime, # 90 tablet, 3 Refills, Maintenance, 02/12/21 10:54:00 EDT, Tablet, [facility] #[id number], 167.64, cm, 01/13/21 9:46:00 EDT, Height, 63.64, kg, 10/30/20 11:22:00 EDT, Dry Weight Start Date: 02/12/21 Stop Date: 02/07/22 Status: Ordered clopidogrel 75 mg oral tablet 75 mg, 1, tablet, By Mouth, Daily, # 30 tablet, Refills 11, Tot. Refills 11, Maintenance, 12/09/20 17:12:00 EDT, Route to Pharmacy Electronically, [facility] #[id number], Partial fill upon patient request if the prescription is for a schedule II... Start Date: 12/09/20 Status: Ordered EpiPen 2-Sameer 0.3 mg injectable kit = 0.3 mg, Intramuscular, Once, Must go to hospital if used, # 1 each, 1 Refills, Soft Stop, 01/09/21 14:45:00 EDT, [facility] #[id number], 167.64, cm, 01/09/21 14:27:00 EDT, Height, 63.64, [...] 01/13/21 9:59:00 EDT, Route to Pharmacy Electronically, [facility] #[id number], Partial fill upon patient request if the prescription is for a schedule II opi... Start Date: 01/13/21 Status: Ordered multivitamin Multiple Vitamins oral tablet 1 tablet, By Mouth, Daily, # 90 tablet, 1 Refills, Maintenance, 01/09/21 14:44:00 EDT, Tablet, [facility] #[id number], 1 tablet By Mouth Daily, 167.64, cm, 01/09/21 14:27:00 EDT, Height, 63.64, kg, 10/30/20 11:22:00 EDT, Dry Weight Start Date: 01/09/21 Status: Ordered Nutritional Supplements See Instructions, # 90 each, Refills 11, Tot. Refills 11, Maintenance, High Protein Ensure Use TID DX Pancreatitis, Weight Loss ICD 10 K85.90 R63.4 3 [place] 3 Vanilla Height 5'6 Weight 130lbs, 12/20/20 7:33:00 EDT, Supply Start Date: 12/20/20 Status: Ordered omeprazole 40 mg oral enteric coated capsule 1 capsule = 40 mg, By Mouth, Daily, # 30 capsule, 2 Refills, Maintenance, 01/14/21 14:05:00 EDT, ECCapsule, [facility] #[id number], 167.64, cm, 01/13/21 9:46:00 EDT, Height, 63.64, kg, 10/30/2110:22:00 EDT, Dry Weight Start Date: 01/14/21 Stop Date: 04/14/21 Status: Ordered PEG-3350 with Electrolytes (Eqv-GoLYTELY) oral powder for reconstitution See Instructions, 1 glass every 15-30 minutes until finished, # 4,000 mL, 0 Refills, Maintenance, 08/26/20 16:28:00 EDT, [facility] #[id number], Partial fill upon patient request if the prescription is for a schedule II opioid drug., 1 glass ever... Start Date: 08/26/20 Status: Ordered ProAir HFA 90 mcg/inh inhalation aerosol with adapter 2, puffs, Inhalation, Every 6 hours, PRN, # 8.5 Gm, Refills 5, Tot. Refills 5, Maintenance, 07/04/20 8:18:00 EST, Aerosol, Route to Pharmacy Electronically, [id number], [facility] #[id number], 168, cm, 06/14/20 10:38:00... Start Date: 07/04/20 [...] 10/16/20 8:15:00 EDT, Route to Pharmacy Electronically, [facility] #[id number], Partial fill upon patient request, 168, cm, [...] 90 tablet, 1 Refills, Maintenance,10/16/20 8:15:00 EDT, [facility] #[id number], 168, cm, 10/16/20 7:49:00 EDT, Height, 60, [...] 2018. 2Repeat EGD in 07/2020 for surveillance 65943; repeat 2019 4R shoulder 2018 5Dr. Jimbo (ENT surgeons) Diagnosis Diagnosis Type Effective Dates Health Status Cl inical Service Informant Abscess of buttock Discharge Diagnosis 03/20/21 Vital Signs Most recent to oldest [Reference Range]: 1 Height 167.64 cm (03/20/21 8:49 AM) Weight 60.5 kg (03/20/21 8:49 AM) Oxygen Saturation [94-100 %] 98 % (03/20/21 8:49 AM) Pulse Rate [55-90 bpm] 57 bpm (03/20/21 8:49 AM) Body Mass Index [18.5-24.99] 21.53 (03/20/21 8:49 AM) Blood Pressure [90-138/55-84 mm Hg] 118/ 60mm Hg (03/20/21 8:49 AM) Temperature [96.8-100.4 DegF] 98.1 DegF (03/20/21 8:49 AM) Mode of Delivery (Oxygen) Room air (03/20/21 8:49 AM) Blood pressure sites Arm, right (03/20/21 8:49 AM) Temperature Route Oral (03/20/21 8:49 AM) Weight Obtained Via Standing scale (03/20/21 8:49 AM) Social History Social History Type Response Smoking Status Current every day herve toney entered on: 12/17/15 Sex
--- OUTSIDE RECORDS SUMMARY | 2022-12-14 11:04 | XMS_ITS | Continuity of Care Document ---
Author Name Unknown Organization [facility] [place] Address [address] [place] [address]- Care Team Providers Care Equipment Man Name Role Phone Casey Suarez MD Primary Care Physician Encounter [facility] Date(s): 11/07/20 - 12/07/20 [facility] Adult [address] [place] [address]- Allergies, Adverse Reactions, Alerts Substance Reaction Severity [...] Guardian Refuses 1Result Comment: Pt tolerated well. [facility] #[id number] 2Location History: [facility] 3Result Comment: [05/06/2017] [facility]:8361-4410-28 Medications amiodarone 200 mg oral tablet 200 mg, 1, tablet, By Mouth, 2 times a day, # 60 tablet, Refills 0, Tot. Refills 0, Maintenance, 11/13/20 9:34:00 EDT, Route to Pharmacy Electronically, [facility], Partial fill upon patient request if the prescription is for a schedule... Start Date: 11/13/20 Status: Ordered aspirin 81 mg oral delayed release tablet 81 mg, By Mouth, Daily, # 30 tablet, Refills 0, Tot. Refills 0, Maintenance, 11/13/20 9:32:00 EDT, Route to Pharmacy Electronically, [facility], Partial fill upon patient request if theprescription is for a schedule II opioid drug., 167... Start Date: 11/13/20 Stop Date: 12/13/20 Status: Ordered atorvastatin 80 mg oral tablet 1 tablet = 80 mg, By Mouth, Daily at bedtime, # 30 tablet, 0 Refills, Maintenance, 11/13/20 9:34:00EDT, Tablet, [facility], Partial fill upon patient request if the prescription is fora schedule II opioid drug., 167.64, cm, 11/13/20 6:... Start Date: 11/13/20 Status: Ordered clopidogrel 75 mg oral tablet 75 mg, 1, tablet, By Mouth, Daily, # 30 tablet, Refills 0, Tot. Refills 0, Maintenance, 11/13/20 9:34:00 EDT, Route to Pharmacy Electronically, [facility], Partial fill upon patient request if the prescription is for a schedule II opioid... Start Date: 11/13/20 Status: Ordered docusate sodium 100 mg oral tablet = 100 mg, By Mouth, 2 times a day, # 6 tablet, 0 Refills, Maintenance, 11/13/20 9:34:00 EDT, Tablet, [facility], Partial fill upon [...] 11/13/20 9:32:00 EDT, Route to Pharmacy Electronically, [facility], Partial fill upon patient request, 167.64, cm, 11/13/20 6:08:00 EDT, H... Start Date: 11/13/20 Stop Date: 06/11/21 Status: Ordered metoprolol 50 mg oral tablet 50 mg, 1, tablet, By Mouth, 2 times a day, # 60 tablet, Refills 0, Tot. Refills 0, Maintenance, 11/13/20 9:33:00 EDT, Route to Pharmacy Electronically, [facility], Partial fill upon patient request if the prescription is for a schedule I... Start Date: 11/13/20 Stop Date: 12/13/20 Status: Ordered multivitamin Multiple Vitamins oral tablet 1 tablet, By Mouth, Daily, # 30 tablet, 5 Refills, Maintenance, 04/22/20 13:08:00 EST, Tablet, [facility] #[id number], 1 tablet By Mouth Daily,x30 days, 168, cm, 04/22/20 12:49:00 EST, Height, 63.5, kg, 08/07/19 9:46:00 EDT, Dry Weight Start Date: 04/22/20 Stop Date: 10/19/20 Status: Ordered Nutritional Supplements See Instructions, # 6 each, Refills 11, Tot. Refills 11, Maintenance, High Protein Ensure Use TID DX Pancreatitis, Weight Loss ICD 10 K85.90 R63.4 3 [place] 3 Vanilla Height 5'6 Weight 130lbs, 11/25/20 10:55:00 EDT, Supply Start Date: 11/25/20 Status: Ordered omeprazole 40 mg oral enteric coated capsule 1 capsule = 40 mg, By Mouth, Daily, # 30 capsule, 10 Refills, Maintenance, 04/22/20 13:08:00 EST, EC Capsule, [facility] #[id number], 168, cm, 04/22/20 12:49:00 EST, Height, 63.5, kg, 08/07/19 9:46:00 EDT, Dry Weight Start Date: 04/22/20 Stop Date: 03/18/21 Status: Ordered PEG-3350 with Electrolytes (Eqv-GoLYTELY) oral powder for reconstitution See Instructions, 1 glass every 15-30 minutes until finished, # 4,000 mL, 0 Refills, Maintenance, 08/26/20 16:28:00 EDT, [facility] #[id number], Partial fill upon patient request if the prescription is for a schedule II opioid drug., 1 glass ever... Start Date: 08/26/20 Status: Ordered ProAir HFA 90 mcg/inh inhalation aerosol with adapter 2, puffs, Inhalation, Every 6 hours, PRN, # 8.5 Gm, Refills 5, Tot. Refills 5, Maintenance, 07/04/20 8:18:00 EST, Aerosol, Route to Pharmacy Electronically, [id number], [facility] #[id number], 168, cm, 06/14/20 10:38:00... Start Date: 07/04/20 Status: Ordered tamsulosin 0.4 mg oral capsule 0.4 mg, 1, capsule, By Mouth, Daily, PER BELL HODGES, # 90 capsule, Refills 1, Tot. Refills 1, Maintenance, 10/16/20 8:15:00 EDT, Route to Pharmacy Electronically, [facility] #[id number], Partial fill upon patient request, 168, cm, 10/16/20... Start Date: 10/16/20 Status: Ordered traZODone 150 mg oral tablet 1 tablet, By Mouth, Daily at bedtime, PRN NEEDED FOR SLEEP, # 90 tablet, 1 Refills, Maintenance,10/16/20 8:15:00 EDT, [facility] #[id number], 168, cm, 10/16/20 7:49:00 EDT, Height, 60, [...] 2019. 2Repeat EGD in 07/2020 for surveillance 75858; repeat 2019 4R shoulder 2018 5DrShabnam Choi (ENT surgeons) Social History Social History Type Response Smoking Status Current every day herve toney entered on: 12/17/15 Sex
--- OUTSIDE RECORDS SUMMARY | 2022-12-14 11:04 | XMS_ITS | Continuity of Care Document ---
Author Name Unknown Organization [facility] [place] Address [address] [place] [address]- Care Team Providers Care Electrical Prospecting Observer Name Role Phone Casey Suarez MD Primary Care Physician Encounter [facility] Date(s): 09/01/21 - 09/08/21 [facility] Adult [address] [place] [address]- Attending Physician: Josey OSORIO, Tyra Willis Allergies, [...] en Parent Or Guardian Refuses 1Result Comment: [facility]# [address] [phone] 2Result Comment: Pt tolerated well. [facility] #[id number] 3Location History: [facility] 4Result Comment: [05/06/2017] [facility]:1794-3650-02 Medications aspirin 81 mg oral delayed release tablet 1 tablet, By Mouth, Daily, # 90 tablet, 0 Refills, [facility] #[id number], 167.64, cm, 04/21/21 13:13:00 EST, Height, 63.64, kg, 10/30/20 11:22:00 EDT, Dry Weight Start Date: 07/11/21 Status: Ordered atorvastatin 80 mg oral tablet 1 tablet = 80 mg, By Mouth, Daily at bedtime, # 90 tablet, 3 Refills, Maintenance, 08/14/21 15:28:00 EDT, Tablet, [facility] #[id number], 167.64, cm, 08/14/21 15:12:00 EDT, Height, 63.64, kg, 10/30/20 11:22:00 EDT, Dry Weight Start Date: 08/14/21 Stop Date: 08/09/22 Status: Ordered clopidogrel 75 mg oral tablet 75 mg, 1, tablet, By Mouth, Daily, # 30 tablet, Refills 11, Tot. Refills 11, Maintenance, 12/09/20 17:12:00 EDT, Route to Pharmacy Electronically, [facility] #[id number], Partial fill upon patient request if the prescription is for a schedule II... Start Date: 12/09/20 Status: Ordered EpiPen 2-Sameer 0.3 mg injectable kit = 0.3 mg, Intramuscular, Once, Must go to hospital if used, # 1 each, 1 Refills, Soft Stop, 01/09/21 14:45:00 EDT, [facility] #[id number], 167.64, cm, 01/09/21 14:27:00 EDT, Height, 63.64, [...] Mouth, Daily, # 90 tablet, 1 Refills, [facility] #[id number], 90, TAKE 1 TABLET BY MOUTH DAILY, 167.64, cm, 04/21/21 13:13:00 EST, Height, 63.64, kg, 10/30/20 11:22:00 EDT, Dry Weight Start Date: 07/10/21 Status: Ordered Nutritional Supplements See Instructions, # 90 each, Refills 11, Tot. Refills 11, Maintenance, High Protein Ensure Use TID DX Pancreatitis, Weight Loss ICD 10 K85.90 R63.4 3 [place] 3 Vanilla Height 5'6 Weight 130lbs, 12/20/20 7:33:00 EDT, Supply Start Date: 12/20/20 Status: Ordered omeprazole 40 mg oral enteric coated capsule 1 capsule = 40 mg, By Mouth, Daily, # 30 capsule, 2 Refills, Maintenance, 01/14/21 14:05:00 EDT, ECCapsule, [facility] #[id number], 167.64, cm, 01/13/21 9:46:00 EDT, Height, 63.64, kg, 10/30/2110:22:00 EDT, Dry Weight Start Date: 01/14/21 Stop Date: 04/14/21 Status: Ordered PEG-3350 with Electrolytes (Eqv-GoLYTELY) oral powder for reconstitution See Instructions, 1 glass every 15-30 minutes until finished, # 4,000 mL, 0 Refills, Maintenance, 08/26/20 16:28:00 EDT, [facility] #[id number], Partial fill upon patient request if the prescription is for a schedule II opioid drug., 1 glass ever... Start Date: 08/26/20 Status: Ordered ProAir HFA 90 mcg/inh inhalation aerosol with adapter 2, puffs, Inhalation, Every 6 hours, PRN, # 8.5 Gm, Refills 5, Tot. Refills 5, Maintenance, 07/04/20 8:18:00 EST, Aerosol, Route to Pharmacy Electronically, [id number], [facility] #[id number], 168, cm, 06/14/20 10:38:00... Start Date: 07/04/20 [...] capsule, Refills 1, Route to Pharmacy Electronically, [facility] #[id number], 167.64, cm, 03/20/21 8:49:00 EDT, Height, 63.64, [...] FOR SLEEP, # 90 tablet, 1 Refills, [facility] #[id number], 167.64, cm, 03/20/21 8:49:00 EDT, Height, 63.64, [...] 2018. 2Repeat EGD in 07/2020 for surveillance 27063; repeat 2019 4R shoulder 2017 5DrShabnam Choi (ENT surgeons) Vital Signs Most recent to oldest [Reference Range]: 1 Height 167.64 cm (09/01/21 8:31 AM) Weight 60.9 kg (09/01/21 8:31 AM) Oxygen Saturation [94-100 %] 93 % *L* (09/01/21 8:31 AM) Pulse Rate [55-90 bpm] 53 bpm *L* (09/01/21 8:31 AM) Body Mass Index [18.5-24.99] 21.67 (09/01/21 8:31 AM) Blood Pressure [90-138/55-84 mm Hg] 136/ 70mm Hg (09/01/21 8:31 AM) Mode of Delivery (Oxygen) Room air (09/01/21 8:31 AM) Blood pressure sites Arm, left (09/01/21 8:31 AM) Weight Obtained Via Standing scale (09/01/21 8:31 AM) Social History Social History Type Response Smoking Status Current every day herve toney entered on: 12/17/15 Sex
--- OUTSIDE RECORDS SUMMARY | 2022-12-14 11:04 | XMS_ITS | Continuity of Care Document ---
Author Name Unknown Organization [facility] [place] Address [address] [place] [address]- Care Team Providers Care Monitoring Tech Name Role Phone Casey Suarez MD Primary Care Physician Encounter [facility] Date(s): 07/11/20 - 08/10/20 [facility] Adult [address] [place] [address]- Allergies, Adverse Reactions, Alerts Substance Reaction Severity [...] well. [facility] #[id number] 2Location History: [facility] 3Result Comment: [05/06/2017] [facility]:[id number] Medications albuterol 0.083% inhalation solution 3 mL = 2.5 mg, Inhalation, Every 6 hours, # 120 each, 2 Refills, Maintenance, 04/30/20 11:23:00 EST, Solution, [facility] #[id number], 168, cm, 04/30/20 11:04:00 EST, Height, 63.5, kg, 08/07/19 9:46:00 EDT, Dry Weight Start Date: 04/30/20 Status: Ordered Creon 36,000 units oral delayed release capsule 1 capsule, By Mouth, 3 times a day, with each meal, # 90 capsule, 3 Refills, Maintenance, 08/07/19 11:39:00 EDT, [facility] #[id number], 1 capsule By Mouth 3 times a day,Instr:with each meal, 168, cm, 08/07/19 9:46:00 EDT, Height, 63.5, kg, 08/06... Start Date: 08/07/19 Status: Ordered ENSURE/VANILLA ENSURE/VANILLA, See Instructions, # 6 pack/packet, Refills 11, Tot. Refills 11, Maintenance, EnsureMax Protein Formula TID DX Pancreatitis Weight Loss 3 [place] 1 Vanilla, 06/25/20 9:20:00 EST, Compound Start [...] 04/22/20 13:38:00 EST, Route to Pharmacy Electronically, [facility] #[id number], Partial fill upon patient request, 168, cm, [...] 5 Refills, Maintenance, 04/22/20 13:08:00 EST, Tablet, [facility] #[id number], 1 tablet By Mouth Daily,x30 days, 168, cm, 04/22/20 12:49:00 EST, Height, 63.5, kg, 08/07/19 9:46:00 EDT, Dry Weight Start Date: 04/22/20 Stop Date: 10/19/20 Status: Ordered Nutritional Supplements See Instructions, # 6 each, Refills 11, Tot. Refills 11, Maintenance, Max Protein Ensure 3 [place] 3 Vanilla use TID DX Pancreatitis Weight loss ICD 10 K85.9 R63.4 Weight: 137LBS Height: 5'6, 07/30/20 14:51:00 EST, Supply, 168, cm, 06/14... Start Date: 07/30/20 Status: Ordered omeprazole 40 mg oral enteric coated capsule 1 capsule = 40 mg, By Mouth, Daily, # 30 capsule, 10 Refills, Maintenance, 04/22/20 13:08:00 EST, EC Capsule, [facility] #[id number], 168, cm, 04/22/20 12:49:00 EST, Height, 63.5, [...] 8:18:00 EST, Aerosol, Route to Pharmacy Electronically, [id number], [facility] #[id number], 168, cm, 06/14/20 10:38:00... Start Date: 07/04/20 Status: Ordered tamsulosin 0.4 mg oral capsule 0.4 mg, 1, capsule, By Mouth, Daily, PER BELL HODGES, # 90 capsule, Refills 1, Tot. Refills 1, Maintenance, 04/29/20 16:06:00 EST, Route to Pharmacy Electronically, [facility] #[id number],Partial fill upon patient request, 168, cm, ... Start Date: 04/29/20 Status: Ordered tiZANidine 4 mg oral capsule 2 capsule = 8 mg, By Mouth, 3 times a day, 0 Refills, Maintenance, 10/13/19 10:32:00 EDT Start Date: 10/13/19 Status: Ordered traZODone 150 mg oral tablet 1 tablet, By Mouth, Daily at bedtime, PRN NEEDED FOR SLEEP, # 30 tablet, 5 Refills, Maintenance,04/22/20 13:08:00 EST, [facility] #[id number], 168, cm, 04/22/20 12:49:00 EST, Height, 63.5, [...] 2019. 2Repeat EGD in 07/2020 for surveillance 83080; repeat 2019 4R shoulder 2018 5Dr. Jimbo (ENT surgeons) Social History Social History Type Response Smoking Status Current every day herve toney entered on: 12/17/15 Sex
--- OUTSIDE RECORDS SUMMARY | 2022-12-14 11:04 | XMS_ITS | Continuity of Care Document ---
Author Name Unknown Organization [facility] [place] Address [address] [place] [address]- Care Team Providers Care Art Preparator Name Role Phone Casey Suarez MD Primary Care Physician [phone] Encounter [facility] Date(s): 05/13/20 - 06/12/20 [facility] Adult [address] [place] [address]- Allergies, Adverse Reactions, Alerts Substance Reaction Severity [...] Pt tolerated well. [facility] #[id number] 2Location History: [facility] 3Result Comment: [05/06/2017] [facility]:[id number] Medications albuterol 0.083% inhalation solution 3 mL = 2.5 mg, Inhalation, Every 6 hours, # 120 each, 2 Refills, Maintenance, 04/30/20 11:23:00 EST, Solution, [facility] #[id number], 168, cm, 04/30/20 11:04:00 EST, Height, 63.5, [...] Refills, Soft Stop, 05/03/20 16:00:00 EST, Tablet, [facility] #[id number], Partial fill upon patient request if the prescription is for a schedule IIopioid drug., 168, cm, 04/30/20 11:04:00 EST, Heigh... Start Date: 05/03/20 Status: Ordered Creon 36,000 units oral delayed release capsule 1 capsule, By Mouth, 3 times a day, with each meal, # 90 capsule, 3 Refills, Maintenance, 08/07/19 11:39:00 EDT, [facility] #[id number], 1 capsule By Mouth 3 times a day,Instr:with each meal, 168, cm, 08/07/19 9:46:00 EDT, Height, 63.5, kg, 08/06... Start Date: 08/07/19 Status: Ordered Crestor 40 mg oral tablet 1 tablet = 40 mg, By Mouth, Daily, # 90 tablet, 3 Refills, Maintenance, 04/22/20 13:08:00 EST, Tablet, [facility] #[id number], 168, cm, 04/22/20 12:49:00 EST, Height, 63.5, [...] 04/22/20 13:38:00 EST, Route to Pharmacy Electronically, [facility] #[id number], Partial fill upon patient request, 168, cm, [...] 5 Refills, Maintenance, 04/22/20 13:08:00 EST, Tablet, [facility] #[id number], 1 tablet By Mouth Daily,x30 days, 168, cm, 04/22/20 12:49:00 EST, Height, 63.5, kg, 08/07/19 9:46:00 EDT, Dry Weight Start Date: 04/22/20 Stop Date: 10/19/20 Status: Ordered omeprazole 40 mg oral enteric coated capsule 1 capsule = 40 mg, By Mouth, Daily, # 30 capsule, 10 Refills, Maintenance, 04/22/20 13:08:00 EST, EC Capsule, [facility] #[id number], 168, cm, 04/22/20 12:49:00 EST, Height, 63.5, [...] tablet, 0 Refills, Maintenance, 05/03/20 16:00:00 EST, [facility] #[id number], Partial fill upon patient request if the prescription is for a schedule II opioid... Start Date: 05/03/20 Status: Ordered ProAir HFA 90 mcg/inh inhalation aerosol with adapter 2, puffs, Inhalation, Every 6 hours, PRN, # 8.5 Gm, Refills 2, Tot. Refills 2, Maintenance, 04/22/20 13:08:00 EST, Aerosol, Route to Pharmacy Electronically, [id number], [facility] #[id number], 168, cm, 04/22/20 12:49:00... Start Date: 04/22/20 Status: Ordered tamsulosin 0.4 mg oral capsule 0.4 mg, 1, capsule, By Mouth, Daily, PER BELL HODGES, # 90 capsule, Refills 1, Tot. Refills 1, Maintenance, 04/29/20 16:06:00 EST, Route to Pharmacy Electronically, [facility] #[id number],Partial fill upon patient request, 168, cm, ... Start Date: 04/29/20 Status: Ordered tiZANidine 4 mg oral capsule 2 capsule = 8 mg, By Mouth, 3 times a day, 0 Refills, Maintenance, 10/13/19 10:32:00 EDT Start Date: 10/13/19 Status: Ordered traZODone 150 mg oral tablet 1 tablet, By Mouth, Daily at bedtime, PRN NEEDED FOR SLEEP, # 30 tablet, 5 Refills, Maintenance,04/22/20 13:08:00 EST, [facility] #[id number], 168, cm, 04/22/20 12:49:00 EST, Height, 63.5, [...] 2019. 2Repeat EGD in 07/2020 for surveillance 45802; repeat 2019 4R shoulder 2017 5Dr. Jimbo (ENT surgeons) Social History Social History Type Response Smoking Status Current every day herve toney entered on: 12/17/15 Sex
--- OUTSIDE RECORDS SUMMARY | 2022-12-14 11:04 | XMS_ITS | Continuity of Care Document ---
Author Name Unknown Organization [facility] Address [address] [place] [address]- Care Team Providers Care Hand Alterations Seamstress Name Role Phone Casey Suarez MD Primary Care Physician [place] [facility] [place]): [place]19 [facility] [address] [place] [address]- [facility] Attending Physician: Zev Marquis MD Referring Physician: Casey [...] Refuses 1Result Comment: Pt tolerated well. [facility] #[id number] 2Location History: [place] 3Result Comment: [05/06/2017] [facility]:6947-5496-05 Medications albuterol 0.083% inhalation solution 3 mL [...] capsule, 3 Refills, Maintenance, 08/07/19 11:39:00 EDT, [facility] #04195, 1 capsule By Mouth 3 times a [...] 05/04/19 14:51:08 EST, Route to Pharmacy Electronically, [id number], [facility] #[id number], 168, cm, 05/02/19 8:32:30... Start Date: 05/04/19 Stop Date: 09/01/19 Status: Ordered lisinopril 10 mg oral tablet See Instructions, TAKE 1 TABLET BY MOUTH EVERY DAY, # 30 tablet, Refills 5, Tot. Refills 5, Soft Stop, 08/28/19 10:33:00 EDT, Instructions Replace Required Details, Route to Pharmacy Electronically, [facility] #[id number], 168, cm, 08/07/19 9:46:... Start Date: 08/28/19 [...] 10 Refills, Maintenance, 08/14/19 8:52:00 EDT, ECCapsule, [facility] #57375, 168, cm, 08/07/19 9:46:00 EDT, Height, 63.5, [...] 16:26:00 EST, Aerosol, Route to Pharmacy Electronically, [id number], [facility] #[id number], 168, cm, 07/24/19 9:01:00... Start Date: 07/24/19 [...] 30 tablet, 5 Refills, Maintenance,06/27/19 16:32:00 EST, [facility] #03597, 168, cm, 05/19/19 8:56:00 EST, Height, 57.4, [...] 2019. 2Repeat EGD in 07/2020 for surveillance 40442; repeat 2019 4R shoulder 2018 5DrShabnam Choi (ENT surgeons) Social History Social History Type Response Smoking Status Current every day herve toney entered on: 12/17/15 Sex
--- NOTE | 2022-12-14 11:05 | AM.OFFWIN_ITS ---
Intake Vital Signs 12/14/22 11:07 Height 5 ft 6 in Weight 140 lb BMI 22.6 BP 112/64 Blood Pressure Location Lt brachial Position Sitting Respiration 14 Pulse 73 Pulse Source Pulse Oximeter Temp 98.9 F Temp Source Temporal Artery Scan Pulse Oximetry (%) 95 Oxygen Delivery Method Room Air Intake Visit Reasons: bee sting Intake Note: Patient arrived as a walk in from being stung by a bee. Patient was painting outside on a ladder, bee's nest was hidden. Patient was stung on the right hand and the hand was swollen when arrived. RN administered 50mg benedryl and an adult epi-pen, 0.3ml, on arrival after MD orders. Patient was rechecked 8 minutes after medication administration and admitted to feeling jittery. MA stayed with patient for the duration of his visit to tend to any emergent needs. MA administered cold pack to the right hand upon arrival and again about 15 minutes after the first ice pack got warm. Patient Tobacco Use Status: Current everyday Tobacco user Backup Administrative Coordinator Required: No Accompanied by: Self / Same As Patient Allergies clavulanic acid [From AUGMENTIN] Allergy (Intermediate, Verified 12/14/22 11:10) UNKNOWN acetaminophen [From PERCOCET] Allergy (Unknown, Verified 12/14/22 11:10) GI UPSET amoxicillin [AMOXICILLIN] Allergy (Unknown, Verified 12/14/22 11:10) ANAPHYLAXIS bee pollen [BEE STINGS] Allergy (Unknown, Verified 12/14/22 11:10) ANAPHYLAXIS penicillin V Allergy (Unknown, Verified 12/14/22 11:10) SOB codeine [CODEINE] Adverse Reaction (Mild, Verified 12/14/22 11:10) RASH Codeine Sulfate Allergy (Unknown, Uncoded 11/06/21 16:42) hives HPI bee sting HPI Details 57 y/o male presents for a bee sting. He states he is allergic to bee stings. He reports shortness of breath/tingling and pain/swelling of his hands. He notes some tightness in his throat and airways. 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 Brain concussion Chronic anemia Chronic back pain COPD (chronic obstructive pulmonary disease) Headache History of alcohol abuse History of DVT (deep vein thrombosis) Hypercholesterolemia Hypertension Nocturia Postconcussion syndrome PTSD (post-traumatic stress disorder) Right rotator cuff tear Sciatica Tobacco use Tubular adenoma of colon Surgical History History of colonoscopy History of coronary artery bypass graft History of shoulder surgery Social History (Updated 12/14/22 @ 11:18 by Annabelle Amaral) Household Members: None Housing: Condominium Alcohol intake: former Patient Tobacco Use Status: Current everyday Tobacco user Tobacco use type: Cigarette Cigarette Packs Per Day: 1 Use of substances other than those prescribed or required for medical reasons: No Have you been hit, kicked, punched, or otherwise hurt by someone within the past year? If so, by whom?: No Do you feel safe in your current relationship?: No Current Relationship Is there a partner from a previous relationship who is making you feel unsafe now?: No Are you made to feel afraid or neglected: No Access to Firearms: No Risk Factors Comment: N/A Current Diet: Other Recently lost weight without trying: No Eating poorly because of decreased appetite: No Nutrition Risks: No Nutritional Risk service: No Current occupational status: employed Current occupation: [employer]s [employer] Sexually active: Yes Sexual orientation: Straight/Heterosexual Gender identity: Male Cognitive needs: No Hearing needs: No Vision needs: No Review of Systems Const Denies chills, Denies fatigue, Denies fever(s), Denies headache(s) and Denies weakness ENT Denies dizziness and Denies headache(s) Card Denies dyspnea Resp Details: Shortness of breath Denies cough, Denies dyspnea, Denies wheezing and Denies other (shortness of breath) Musc Details: R hand swelling Denies numbness and Denies tingling Neuro Denies dizziness, Denies headache(s), Denies numbness, Denies tingling and Denies weakness Psych Denies anxiety and Denies depression Endo Denies fatigue Aller/Immun Denies wheezing Physical Exam Vital Signs: Last Vital Signs Temp 98.9 F 12/14/22 11:07 Pulse 73 12/14/22 11:07 Resp 14 12/14/22 11:07 BP 112/64 12/14/22 11:07 Pulse Ox 95 12/14/22 11:07 Oxygen Delivery Method Room Air 12/14/22 11:07 BMI result Body Mass Index 22.6 Const General: well developed; No acute distress Nutritional Appearance: well nourished Orientation/consciousness: patient oriented x3 HEENT Head: Yes normocephalic and Yes atraumatic Eyes General: appearance normal, both eyes and all related structures Pupils: Equal, round and reactive pupils present EOM: EOMs intact bilaterally Resp Effort & Inspection: normal respiratory effort Neuro General: patient oriented x3 and gait normal Cranial nerves: Yes Equal, round and reactive pupils present Extrem Other: Bee sting with swelling at back of his R hand. Swollen and erythematous. Psych Affect: normal affect Office Meds diphenhydramine HCl Performing Provider: Josh Devi MD Administered by: Eliz Bradley RN on 12/14/22 11:28 Dose Route Admin Location Lot Number Expiration Date [employer] [employer] [facility] [employer] 50 mg PO [id number] 04/29/23 41968-532-32 [employer] EpiPen Performing Provider: Josh Devi MD Administered by: Eliz Bradley RN on 12/14/22 11:00 Dose Route Admin Location Lot Number Expiration Date [facility] [employer] [facility] [employer] 0.3 mg IM RIGHT OUTER THIGH [id number] 04/29/23 1484-2041-12 [facility] Assessment & Plan Assessment & Plan (1) Anaphylactic reaction: Code(s): T78.2XXA - Anaphylactic shock, unspecified, initial encounter Plan: Some throat tightness and breathing tightness in a pt w/ h/o bee sting allergy and ED visits for anaphylaxix from the same. Pt given Epipen 0.3mg IM R thigh and Benadryl 50 mg PO MA at bedside and monitoring patient. Re-evaluation 8 minutes post administration and patient is not worse. He says he feels like he was given the medication in time to avoid series complications. He is still declining to go to the ED. I will continue to monitor. Follow-up at greater than 20 minutes post administration of epinephrine and Benadryl: No further tightness or shortness of breath. Lungs are clear and heart sounds normal. Swelling and hand seems improved with cold pack. He can not elevate his arm Use Benadryl and prednisone. Epinephrine if symptoms worsen and go to the ED. (2) Bee sting allergy: Code(s): Z91.030 - Bee allergy status Orders: Orders AMB Diphenhydramine Adult Dose Today T78.2XXA - Anaphylactic shock, unspecified, initial encounter, Z91.030 - Bee allergy status AMB EpiPen Administration Today T78.2XXA - Anaphylactic shock, unspecified, initial encounter, Z91.030 - Bee allergy status Medications: New prednisone 40 mg (2 x 20 mg) PO DAILY 10 tabs 0RF 5 days epinephrine (EpiPen 2-Sameer) 0.3 mg (0.3 mL) IM Q4H PRN 2 ea 0RF anaphylaxis 30 days diphenhydramine HCl (Benadryl Allergy) 50 mg (2 x 25 mg) PO TID PRN 15 tabs 0RF allergy symptoms 5 days Coding Level of Care Code Est Pt Level 3 (62102) Diagnoses Anaphylactic reaction T78.2XXA Bee sting allergy Z91.030
--- OUTSIDE RECORDS SUMMARY | 2022-12-14 11:05 | XMS_ITS | Continuity of Care Document ---
Author Name Unknown Organization [facility] Address [address] [place] [address]- Care Team Providers Care Marine Services Technician Name Role Phone Daniela BROWN, Casey Jiménez Primary Care Physician [phone] [facility]counter [facility] Date[facility]s): 06/20/21 - 07/20/21 [facility] Adult [address] [place] [address]- Allergies, Adverse Reactions, Alerts Substance Reaction Severity [...] [facility]# [address] [phone] 2Result Comment: Pt tolerated well. [facility] #[id number] 3Location History: [facility] 4Result Comment: [05/06/2017] [facility]:3960-2628-32 Medications aspirin 81 mg oral delayed release tablet 1 tablet, By Mouth, Daily, # 90 tablet, 0 Refills, [facility] #65541, 167.64, cm, 04/21/21 13:13:00 EST, Height, 63.64, kg, 10/30/20 11:22:00 EDT, Dry Weight Start Date: 07/11/21 Status: Ordered atorvastatin 80 mg oral tablet 1 tablet = 80 mg, By Mouth, Daily at bedtime, # 90 tablet, 3 Refills, Maintenance, 02/12/21 10:54:00 EDT, Tablet, [facility] #[id number], 167.64, cm, 01/13/21 9:46:00 EDT, Height, 63.64, kg, 10/30/20 11:22:00 EDT, Dry Weight Start Date: 02/12/21 Stop Date: 02/07/22 Status: Ordered clopidogrel 75 mg oral tablet 75 mg, 1, tablet, By Mouth, Daily, # 30 tablet, Refills 11, Tot. Refills 11, Maintenance, 12/09/20 17:12:00 EDT, Route to Pharmacy Electronically, [facility] #[id number], Partial fill upon patient request if the prescription is for a schedule II... Start Date: 12/09/20 Status: Ordered EpiPen 2-Sameer 0.3 mg injectable kit = 0.3 mg, Intramuscular, Once, Must go to hospital if used, # 1 each, 1 Refills, Soft Stop, 01/09/21 14:45:00 EDT, [facility] #[id number], 167.64, cm, 01/09/21 14:27:00 EDT, Height, 63.64, [...] 01/13/21 9:59:00 EDT, Route to Pharmacy Electronically, [facility] #[id number], Partial fill upon patient request if the prescription is for a schedule II opi... Start Date: 01/13/21 Status: Ordered multivitamin Multiple Vitamins oral tablet 1 tablet, By Mouth, Daily, # 90 tablet, 1 Refills, [facility] #10023, 90, TAKE 1 TABLET BY MOUTH DAILY, 167.64, cm, 04/21/21 13:13:00 EST, Height, 63.64, kg, 10/30/20 11:22:00 EDT, Dry Weight Start Date: 07/10/21 Status: Ordered Nutritional Supplements See Instructions, # 90 each, Refills 11, Tot. Refills 11, Maintenance, High Protein Ensure Use TID DX Pancreatitis, Weight Loss ICD 10 K85.90 R63.4 3 [place] 3 Vanilla Height 5'6 Weight 130lbs, 12/20/20 7:33:00 EDT, Supply Start Date: 12/20/20 Status: Ordered omeprazole 40 mg oral enteric coated capsule 1 capsule = 40 mg, By Mouth, Daily, # 30 capsule, 2 Refills, Maintenance, 01/14/21 14:05:00 EDT, ECCapsule, [facility] #[id number], 167.64, cm, 01/13/21 9:46:00 EDT, Height, 63.64, kg, 10/30/2110:22:00 EDT, Dry Weight Start Date: 01/14/21 Stop Date: 04/14/21 Status: Ordered PEG-3350 with Electrolytes (Eqv-GoLYTELY) oral powder for reconstitution See Instructions, 1 glass every 15-30 minutes until finished, # 4,000 mL, 0 Refills, Maintenance, 08/26/20 16:28:00 EDT, [facility] #66678, Partial fill upon patient request if the prescription is for a schedule II opioid drug., 1 glass ever... Start Date: 08/26/20 Status: Ordered ProAir HFA 90 mcg/inh inhalation aerosol with adapter 2, puffs, Inhalation, Every 6 hours, PRN, # 8.5 Gm, Refills 5, Tot. Refills 5, Maintenance, 07/04/20 8:18:00 EST, Aerosol, Route to Pharmacy Electronically, [id number], [facility] #[id number], 168, cm, 06/14/20 10:38:00... Start Date: 07/04/20 [...] capsule, Refills 1, Route to Pharmacy Electronically, [facility] #86036, 167.64, cm, 03/20/21 8:49:00 EDT, Height, 63.64, [...] FOR SLEEP, # 90 tablet, 1 Refills, [facility] #24658, 167.64, cm, 03/20/21 8:49:00 EDT, Height, 63.64, [...] 2019. 2Repeat EGD in 07/2020 for surveillance 03380; repeat 2019 4R shoulder 2018 5Dr. Jimbo (ENT surgeons) Social History Social History Type Response Smoking Status Current every day herve toney entered on: 12/17/15 Sex
--- OUTSIDE RECORDS SUMMARY | 2022-12-14 11:05 | XMS_ITS | Continuity of Care Document ---
Author Name Unknown Organization [facility] Address [address] [place] [address]- Care Team Providers Care Policy Value Calculator Name Role Phone Daniela BROWN, Casey Jiménez Primary Care Physician [phone] [facility]counter [facility] Date(s): 01/09/22 - 02/08/22 [facility] Adult [address] [place] [address]- Allergies, Adverse Reactions, Alerts Substance Reaction Severity [...] en Parent Or Guardian Refuses 1Result Comment: [facility]# [address] [phone] 2Result Comment: Pt tolerated well. [facility] #[id number] 3Location History: [facility] 4Result Comment: [05/06/2017] [facility]:8285-1522-64 Medications aspirin 81 mg oral delayed release tablet 1 tablet, By Mouth, Daily, # 90 tablet, 0 Refills, [facility] #[id number], 167.6, cm, 228:27:00 EDT, Height, 63.6, kg, 09/22/21 9:54:00 EDT, Dry Weight Start Date: 01/08/22 Status: Ordered atorvastatin 80 mg oral tablet 1 tablet = 80 mg, By Mouth, Daily at bedtime, # 90 tablet, 3 Refills, Maintenance, 08/14/21 15:28:00 EDT, Tablet, [facility] #[id number], 167.64, cm, 08/14/21 15:12:00 EDT, Height, 63.64, kg, 10/30/20 11:22:00 EDT, Dry Weight Start Date: 08/14/21 Stop Date: 08/09/22 Status: Ordered clopidogrel 75 mg oral tablet 75 mg, 1, tablet, By Mouth, Daily, # 30 tablet, Refills 11, Tot. Refills 11, Maintenance, 12/09/20 17:12:00 EDT, Route to Pharmacy Electronically, [facility] #[id number], Partial fill upon patient request if the prescription is for a schedule II... Start Date: 12/09/20 Status: Ordered EpiPen 2-Sameer 0.3 mg injectable kit = 0.3 mg, Intramuscular, Once, Must go to hospital if used, # 1 each, 1 Refills, Soft Stop, 01/09/21 14:45:00 EDT, [facility] #[id number], 167.64, cm, 01/09/21 14:27:00 EDT, Height, 63.64, kg, 10/30/20 11:22:00 EDT, Dry Weight Start Date: 01/09/21 Status: Ordered gabapentin 300 mg oral capsule 600 mg, 2, capsule, By Mouth, 2 times a day, # 120 capsule, Refills 0, Tot. Refills 0, Maintenance,01/08/22 8:39:00 EDT, Route to Pharmacy Electronically, [facility] #[id number], Partial fill upon patient request, 167.6, cm, [...] Mouth, Daily, # 90 tablet, 1 Refills, [facility] #86249, 167.6, cm, :54:00 EDT, Height, 63.6, kg, 09/22/21 9:54:00 EDT, Dry Weight Start Date: 10/06/21 Status: Ordered multivitamin Multiple Vitamins oral tablet 1 tablet, By Mouth, Daily, # 90 tablet, 1 Refills, [facility] #84106, 90, TAKE 1 TABLET BY MOUTH DAILY, 167.64, cm, 04/21/21 13:13:00 EST, Height, 63.64, kg, 10/30/20 11:22:00 EDT, Dry Weight Start Date: 07/10/21 Status: Ordered Nutritional Supplements See Instructions, # 90 each, Refills 11, Tot. Refills 11, Maintenance, High Protein Ensure Use TID DX Pancreatitis, Weight Loss ICD 10 K85.90 R63.4 3 [place] 3 Vanilla Height 5'6 Weight 130lbs, 12/20/20 7:33:00 EDT, Supply Start Date: 12/20/20 Status: Ordered omeprazole 40 mg oral enteric coated capsule 1 capsule, By Mouth, Daily, # 30 capsule, 2 Refills, [facility] #15489, 167.6, cm, 11/06/21 15:13:00 EDT, Height, 63.6, kg, 09/22/21 9:54:00 EDT, Dry Weight Start Date: 12/10/21 Status: Ordered PEG-3350 with Electrolytes (Eqv-GoLYTELY) oral powder for reconstitution See Instructions, 1 glass every 15-30 minutes until finished, # 4,000 mL, 0 Refills, Maintenance, 08/26/20 16:28:00 EDT, [facility] #[id number], Partial fill upon patient request if the prescription is for a schedule II opioid drug., 1 glass ever... Start Date: 08/26/20 Status: Ordered ProAir HFA 90 mcg/inh inhalation aerosol with adapter 2, puffs, Inhalation, Every 6 hours, PRN, # 8.5 Gm, Refills 5, Tot. Refills 5, Maintenance, 07/04/20 8:18:00 EST, Aerosol, Route to Pharmacy Electronically, [id number], [facility] #[id number], 168, cm, 06/14/20 10:38:00... Start Date: 07/04/20 [...] capsule, Refills 1, Route to Pharmacy Electronically, [facility] #67024, 167.6, cm, 09/22/21 9:54:00 EDT, Height, 63.6, [...] FOR SLEEP, # 90 tablet, 1 Refills, [facility] #67654, 167.6, cm, 09/22/21 9:54:00 EDT, Height, 63.6, [...] 2019. 2Repeat EGD in 07/2020 for surveillance 93740; repeat 2019 4R shoulder [address] 5Dr. Jimbo (ENT surgeons) Social History Social History Type Response Smoking Status Current every day herve toney entered on: 12/17/15 Sex Care Team Personnel Name: Daniela BROWN, Casey Jiménez Address: [address] [place] [address]
--- OUTSIDE RECORDS SUMMARY | 2022-12-14 11:05 | XMS_ITS | Continuity of Care Document ---
Author Name Unknown Organization [facility] Address [address] [place] [address]- Care Team Providers Care Control And Recovery Special Tactics Name Role Phone Casey Suarez MD Primary Care Physician [phone] [facility]counter [facility] Date(s): 02/12/20 - 03/13/20 [facility] Adult [address] [place] [address]- [facility] Allergies, Adverse Reactions, Alerts Substance Reaction [...] Guardian Refuses 1Result Comment: Pt tolerated well. [facility] #[id number] 2Location History: [facility] 3Result Comment: [05/06/2017] [facility]:0968-9131-36 Medications albuterol 0.083% inhalation solution 3 mL [...] capsule, 3 Refills, Maintenance, 08/07/19 11:39:00 EDT, [facility] #[id number], 1 capsule By Mouth 3 times a day,Instr:with each meal, 168, cm, 08/07/19 9:46:00 EDT, Height, 63.5, kg, 08/06... Start Date: 08/07/19 Status: Ordered Crestor 40 mg oral tablet 1 tablet = 40 mg, By Mouth, Daily, # 90 tablet, 3 Refills, Maintenance, 12/28/19 11:53:00 EDT, Tablet, [facility] #33782, 168, cm, 10/13/19 10:19:00 EDT, Height, 63.5, [...] 11/24/19 11:21:00 EDT, Route to Pharmacy Electronically, [facility] #[id number], 168, cm, 10/13/19 10:19:00 EDT,... Start Date: 11/24/19 Stop Date: 05/22/20 Status: Ordered folic acid 1 mg oral tablet 1 mg, 1, tablet, By Mouth, Daily, TK 1 T PO QD, # 30 tablet, Refills 5, Tot. Refills 5, Maintenance, 05/22/20 11:21:00 EST, Route to Pharmacy Electronically, [facility] #[id number], 168, cm, 10/13/19 10:19:00 EDT, Height, 63.5, kg, 08/07/19 9:46:... Start Date: 05/22/20 Stop Date: 11/18/20 Status: Ordered lisinopril 10 mg oral tablet See Instructions, TAKE 1 TABLET BY MOUTH EVERY DAY, # 30 tablet, Refills 2, Tot. Refills 2, Soft Stop, 02/13/20 14:40:00 EDT, Instructions Replace Required Details, Route to Pharmacy Electronically, [facility] #[id number], 168, cm, 10/13/19 10:19... Start Date: 02/13/20 Status: Ordered multivitamin Multiple Vitamins oral tablet 1 tablet, By Mouth, Daily, # 30 tablet, 5 Refills, Maintenance, 11/27/19 12:09:00 EDT, Tablet, [facility] #09839, 1 tablet By Mouth Daily,x30 days, 168, cm, 10/13/19 10:19:00 EDT, Height, 63.5, kg, 08/07/19 9:46:00 EDT, Dry Weight Start Date: 11/27/19 Stop Date: 05/25/20 Status: Ordered omeprazole 40 mg oral enteric coated capsule 1 capsule = 40 mg, By Mouth, Daily, # 30 capsule, 10 Refills, Maintenance, 08/14/19 8:52:00 EDT, ECCapsule, [facility] #61812, 168, cm, 08/07/19 9:46:00 EDT, Height, 63.5, [...] 16:26:00 EST, Aerosol, Route to Pharmacy Electronically, [id number], [facility] #[id number], 168, cm, 07/24/19 9:01:00... Start Date: 07/24/19 [...] 30 tablet, 5 Refills, Maintenance,12/28/19 11:34:00 EDT, [facility] #[id number], 168, cm, 10/13/19 10:19:00 EDT, Height, 63.5, [...] 2019. 2Repeat EGD in 07/2020 for surveillance 84130; repeat 2019 4R shoulder 2018 5DrShabnam Choi (ENT surgeons) Social History Social History Type Response Smoking Status Current every day herve toney entered on: 12/17/15 Sex
--- OUTSIDE RECORDS SUMMARY | 2022-12-14 11:05 | XMS_ITS | Continuity of Care Document ---
Author Name Unknown Organization [facility] Address [address] [place] [address]- Care Team Providers Care Manager Cardiac Cath Name Role Phone Daniela BROWN, Casey Jiménez Primary Care Physician [facility] Date[facility]s): 06/11/21 - 07/11/21 [facility] Adult [address] [place] [address]- Allergies, Adverse Reactions, Alerts Substance Reaction Severity [...] Parent Or Guardian Refuses 1Result Comment: [facility]# [address] 45902-020-51 2Result Comment: Pt tolerated well. [facility] #[id number] 3Location History: [facility] 4Result Comment: [05/06/2017] [facility]:[id number] Medications aspirin 81 mg oral delayed release tablet 1 tablet, By Mouth, Daily, # 90 tablet, 0 Refills, [facility] #[id number], 167.64, cm, 04/21/21 13:13:00 EST, Height, 63.64, kg, 10/30/20 11:22:00 EDT, Dry Weight Start Date: 07/11/21 Status: Ordered atorvastatin 80 mg oral tablet 1 tablet = 80 mg, By Mouth, Daily at bedtime, # 90 tablet, 3 Refills, Maintenance, 02/12/21 10:54:00 EDT, Tablet, [facility] #83481, 167.64, cm, 01/13/21 9:46:00 EDT, Height, 63.64, kg, 10/30/20 11:22:00 EDT, Dry Weight Start Date: 02/12/21 Stop Date: 02/07/22 Status: Ordered clopidogrel 75 mg oral tablet 75 mg, 1, tablet, By Mouth, Daily, # 30 tablet, Refills 11, Tot. Refills 11, Maintenance, 12/09/20 17:12:00 EDT, Route to Pharmacy Electronically, [facility] #34372, Partial fill upon patient request if the prescription is for a schedule II... Start Date: 12/09/20 Status: Ordered EpiPen 2-Sameer 0.3 mg injectable kit = 0.3 mg, Intramuscular, Once, Must go to hospital if used, # 1 each, 1 Refills, Soft Stop, 01/09/21 14:45:00 EDT, [facility] #03801, 167.64, cm, 01/09/21 14:27:00 EDT, Height, 63.64, [...] 01/13/21 9:59:00 EDT, Route to Pharmacy Electronically, [facility] #[id number], Partial fill upon patient request if the prescription is for a schedule II opi... Start Date: 01/13/21 Status: Ordered multivitamin Multiple Vitamins oral tablet 1 tablet, By Mouth, Daily, # 90 tablet, 1 Refills, [facility] #71624, 90, TAKE 1 TABLET BY MOUTH DAILY, 167.64, cm, 04/21/21 13:13:00 EST, Height, 63.64, kg, 10/30/20 11:22:00 EDT, Dry Weight Start Date: 07/10/21 Status: Ordered Nutritional Supplements See Instructions, # 90 each, Refills 11, Tot. Refills 11, Maintenance, High Protein Ensure Use TID DX Pancreatitis, Weight Loss ICD 10 K85.90 R63.4 3 [place] 3 Vanilla Height 5'6 Weight 130lbs, 12/20/20 7:33:00 EDT, Supply Start Date: 12/20/20 Status: Ordered omeprazole 40 mg oral enteric coated capsule 1 capsule = 40 mg, By Mouth, Daily, # 30 capsule, 2 Refills, Maintenance, 01/14/21 14:05:00 EDT, ECCapsule, [facility] #03639, 167.64, cm, 01/13/21 9:46:00 EDT, Height, 63.64, kg, 10/30/2110:22:00 EDT, Dry Weight Start Date: 01/14/21 Stop Date: 04/14/21 Status: Ordered PEG-3350 with Electrolytes (Eqv-GoLYTELY) oral powder for reconstitution See Instructions, 1 glass every 15-30 minutes until finished, # 4,000 mL, 0 Refills, Maintenance, 08/26/20 16:28:00 EDT, [facility] #00890, Partial fill upon patient request if the prescription is for a schedule II opioid drug., 1 glass ever... Start Date: 08/26/20 Status: Ordered ProAir HFA 90 mcg/inh inhalation aerosol with adapter 2, puffs, Inhalation, Every 6 hours, PRN, # 8.5 Gm, Refills 5, Tot. Refills 5, Maintenance, 07/04/20 8:18:00 EST, Aerosol, Route to Pharmacy Electronically, [id number], [facility] #48482, 168, cm, 06/14/20 10:38:00... Start Date: 07/04/20 [...] capsule, Refills 1, Route to Pharmacy Electronically, [facility] #28473, 167.64, cm, 03/20/21 8:49:00 EDT, Height, 63.64, [...] FOR SLEEP, # 90 tablet, 1 Refills, [facility] #91562, 167.64, cm, 03/20/21 8:49:00 EDT, Height, 63.64, [...] 2019. 2Repeat EGD in 07/2020 for surveillance 91353; repeat 2019 4R shoulder 2018 5Dr. Jimbo (ENT surgeons) Social History Social History Type Response Smoking Status Current every day herve toney entered on: 12/17/15 Sex
--- OUTSIDE RECORDS SUMMARY | 2022-12-14 11:05 | XMS_ITS | Continuity of Care Document ---
Author Name Unknown Organization [facility] Address [address] [place] [address] ve [address] [place] [address]- Care Team Providers Care Outbound Sales Representative Name Role Phone Casey Suarez MD Primary Care Physician [facility] Date(s): 01/01/22 - 01/31/[address] [place] [address]- Attending Physician: Admtr, Ana Admitting Physician: AdmtrAna Referring Physician: Admtr, Ar8 [...] en Parent Or Guardian Refuses 1Result Comment: [facility]# [address] [id number] 2Result Comment: Pt tolerated well. [facility] #[id number] 3Location History: [facility] 4Result Comment: [05/06/2017] [facility]:4683-0505-86 Medications aspirin 81 mg oral delayed release tablet 1 tablet, By Mouth, Daily, # 90 tablet, 0 Refills, [facility] #41450, 167.6, cm, 228:27:00 EDT, Height, 63.6, kg, 09/22/21 9:54:00 EDT, Dry Weight Start Date: 01/08/22 Status: Ordered atorvastatin 80 mg oral tablet 1 tablet = 80 mg, By Mouth, Daily at bedtime, # 90 tablet, 3 Refills, Maintenance, 08/14/21 15:28:00 EDT, Tablet, [facility] #57137, 167.64, cm, 08/14/21 15:12:00 EDT, Height, 63.64, kg, 10/30/20 11:22:00 EDT, Dry Weight Start Date: 08/14/21 Stop Date: 08/09/22 Status: Ordered clopidogrel 75 mg oral tablet 75 mg, 1, tablet, By Mouth, Daily, # 30 tablet, Refills 11, Tot. Refills 11, Maintenance, 12/09/20 17:12:00 EDT, Route to Pharmacy Electronically, [facility] #27138, Partial fill upon patient request if the prescription is for a schedule II... Start Date: 12/09/20 Status: Ordered EpiPen 2-Sameer 0.3 mg injectable kit = 0.3 mg, Intramuscular, Once, Must go to hospital if used, # 1 each, 1 Refills, Soft Stop, 01/09/21 14:45:00 EDT, [facility] #18062, 167.64, cm, 01/09/21 14:27:00 EDT, Height, 63.64, kg, 10/30/20 11:22:00 EDT, Dry Weight Start Date: 01/09/21 Status: Ordered gabapentin 300 mg oral capsule 600 mg, 2, capsule, By Mouth, 2 times a day, # 120 capsule, Refills 0, Tot. Refills 0, Maintenance,01/08/22 8:39:00 EDT, Route to Pharmacy Electronically, [facility] #37773, Partial fill upon patient request, 167.6, cm, [...] Mouth, Daily, # 90 tablet, 1 Refills, [facility] #04170, 167.6, cm, :54:00 EDT, Height, 63.6, kg, 09/22/21 9:54:00 EDT, Dry Weight Start Date: 10/06/21 Status: Ordered multivitamin Multiple Vitamins oral tablet 1 tablet, By Mouth, Daily, # 90 tablet, 1 Refills, [facility] #78829, 90, TAKE 1 TABLET BY MOUTH DAILY, 167.64, cm, 04/21/21 13:13:00 EST, Height, 63.64, kg, 10/30/20 11:22:00 EDT, Dry Weight Start Date: 07/10/21 Status: Ordered Nutritional Supplements See Instructions, # 90 each, Refills 11, Tot. Refills 11, Maintenance, High Protein Ensure Use TID DX Pancreatitis, Weight Loss ICD 10 K85.90 R63.4 3 [place] 3 Vanilla Height 5'6 Weight 130lbs, 12/20/20 7:33:00 EDT, Supply Start Date: 12/20/20 Status: Ordered omeprazole 40 mg oral enteric coated capsule 1 capsule, By Mouth, Daily, # 30 capsule, 2 Refills, [facility] #21121, 167.6, cm, 11/06/21 15:13:00 EDT, Height, 63.6, kg, 09/22/21 9:54:00 EDT, Dry Weight Start Date: 12/10/21 Status: Ordered PEG-3350 with Electrolytes (Eqv-GoLYTELY) oral powder for reconstitution See Instructions, 1 glass every 15-30 minutes until finished, # 4,000 mL, 0 Refills, Maintenance, 08/26/20 16:28:00 EDT, [facility] #12916, Partial fill upon patient request if the prescription is for a schedule II opioid drug., 1 glass ever... Start Date: 08/26/20 Status: Ordered ProAir HFA 90 mcg/inh inhalation aerosol with adapter 2, puffs, Inhalation, Every 6 hours, PRN, # 8.5 Gm, Refills 5, Tot. Refills 5, Maintenance, 07/04/20 8:18:00 EST, Aerosol, Route to Pharmacy Electronically, [id number], [facility] #36807, 168, cm, 06/14/20 10:38:00... Start Date: 07/04/20 [...] capsule, Refills 1, Route to Pharmacy Electronically, [facility] #55149, 167.6, cm, 09/22/21 9:54:00 EDT, Height, 63.6, [...] FOR SLEEP, # 90 tablet, 1 Refills, [facility] #77303, 167.6, cm, 09/22/21 9:54:00 EDT, Height, 63.6, [...] 2018. 2Repeat EGD in 07/2020 for surveillance 33580; repeat 2019 4R shoulder [address] 5Dr[address] Jimbo (ENT surgeons) Social History Social History Type Response Smoking Status Current every day herve toney entered on: 12/17/15 Sex Care Team Personnel Name: Daniela BROWN, Casey Jiménez Address: [address] [place] [address] [place] [address]-
--- OUTSIDE RECORDS SUMMARY | 2022-12-14 11:05 | XMS_ITS | Continuity of Care Document ---
Author Name Unknown Organization [facility] Address [address] [place] [address] [address] [place] [address]- Care Team Providers Care Polishing Machine Tender Name Role Phone Casey Suarez MD Primary Care Physician Encounter [facility] Date(s): 11/28/20 - 01/03/21 [facility] [address] [place] [address]- Attending Physician: Jaleel PERALES MD, Maury Astudillo Allergies, Adverse Reactions, Alerts Substance Reaction Severity [...] Refuses 1Result Comment: Pt tolerated well. [facility] #[id number] 2Location History: [facility] 3Result Comment: [05/06/2017] [facility]:8857-7537-12 Medications amiodarone 200 mg oral tablet 200 mg, 1, tablet, By Mouth, 2 times a day, # 60 tablet, Refills 0, Tot. Refills 0, Maintenance, 11/13/20 9:34:00 EDT, Route to Pharmacy Electronically, [facility], Partial fill upon patient request if the prescription is for a schedule... Start Date: 11/13/20 Status: Ordered aspirin 81 mg oral delayed release tablet 81 mg, 1, tablet, By Mouth, Daily, Future refills to come from cardiology or PCP, # 30 tablet, Refills 0, Tot. Refills 0, Maintenance, 12/13/20 9:32:00 EDT, Route to Pharmacy Electronically, [facility] #[id number], Partial fill upon patient reque... Start Date: 12/13/20 Stop Date: 01/12/21 Status: Ordered atorvastatin 80 mg oral tablet 1 tablet = 80 mg, By Mouth, Daily at bedtime, # 90 tablet, 4 Refills, Maintenance, 02/07/21 10:28:00 EDT, Tablet, [facility] #37962, Partial fill upon patient request if the prescription isfor a schedule II opioid drug., 167.64, cm, ... Start Date: 02/07/21 Stop Date: 05/03/22 Status: Ordered atorvastatin 80 mg oral tablet 1 tablet = 80 mg, By Mouth, Daily at bedtime, for 30 days, # 30 tablet, 1 Refills, Hard Stop 02/07/21 10:28:00 EDT, 12/09/20 10:28:00 EDT, Tablet, [facility] #[id number], Partial fill upon patient request if the prescription is for a schedule II... Start Date: 12/09/20 Stop Date: 02/07/21 Status: Ordered clopidogrel 75 mg oral tablet 75 mg, 1, tablet, By Mouth, Daily, # 30 tablet, Refills 11, Tot. Refills 11, Maintenance, 12/09/20 17:12:00 EDT, Route to Pharmacy Electronically, [facility] #[id number], Partial fill upon patient request if the prescription is for a schedule II... Start Date: 12/09/20 Status: Ordered docusate sodium 100 mg oral tablet = 100 mg, By Mouth, 2 times a day, # 6 tablet, 0 Refills, Maintenance, 11/13/20 9:34:00 EDT, Tablet, [facility], Partial fill upon patient [...] 11/13/20 9:32:00 EDT, Route to Pharmacy Electronically, [facility], Partial fill upon patient [...] Maintenance, 12/13/20 9:33:00 EDT, Route to Pharmacy Electronically,[facility] #[id number], Metoprolol tartrate ta... Start Date: 12/13/20 Stop Date: 01/12/21 Status: Ordered multivitamin Multiple Vitamins oral tablet 1 tablet, By Mouth, Daily, # 30 tablet, 0 Refills, Maintenance, 12/09/20 17:12:00 EDT, Tablet, [facility] #30983, 1 tablet By Mouth Daily, 167.64, cm, 11/22/20 15:34:00 EDT, Height, 63.64, kg, 10/30/20 11:22:00 EDT, Dry Weight Start Date: 12/09/20 Stop Date: 06/07/21 Status: Ordered Nutritional Supplements See Instructions, # 90 each, Refills 11, Tot. Refills 11, Maintenance, High Protein Ensure Use TID DX Pancreatitis, Weight Loss ICD 10 K85.90 R63.4 3 [place] 3 Vanilla Height 5'6 Weight 130lbs, 12/20/20 7:33:00 EDT, Supply Start Date: 12/20/20 Status: Ordered omeprazole 40 mg oral enteric coated capsule 1 capsule = 40 mg, By Mouth, Daily, # 30 capsule, 10 Refills, Maintenance, 04/22/20 13:08:00 EST, EC Capsule, [facility] #[id number], 168, cm, 04/22/20 12:49:00 EST, Height, 63.5, [...] mL, 0 Refills, Maintenance, 08/26/20 16:28:00 EDT, [facility] #[id number], Partial fill upon patient request if the prescription is for a schedule II opioid drug., 1 glass ever... Start Date: 08/26/20 Status: Ordered ProAir HFA 90 mcg/inh inhalation aerosol with adapter 2, puffs, Inhalation, Every 6 hours, PRN, # 8.5 Gm, Refills 5, Tot. Refills 5, Maintenance, 07/04/20 8:18:00 EST, Aerosol, Route to Pharmacy Electronically, [id number], [facility] #[id number], 168, cm, 06/14/20 10:38:00... Start Date: 07/04/20 [...] 10/16/20 8:15:00 EDT, Route to Pharmacy Electronically, [facility] #[id number], Partial fill upon patient request, 168, cm, [...] 90 tablet, 1 Refills, Maintenance,10/16/20 8:15:00 EDT, [id number], 168, cm, 10/16/20 7:49:00 EDT, Height, 60, [...] 2019. 2Repeat EGD in 07/2020 for surveillance 87969; repeat 2019 4R shoulder 2018 5DrShabnam Choi (ENT surgeons) Social History Social History Type Response Smoking Status Current every day herve toney entered on: 12/17/15 Sex
--- OUTSIDE RECORDS SUMMARY | 2022-12-14 11:05 | XMS_ITS | Continuity of Care Document ---
Author Name Unknown Organization [facility] [place] Address [address] [place] [address]- Care Team Providers Care Order Entry Representative Name Role Phone Casey Suarez MD Primary Care Physician Encounter [facility] Date(s): 04/08/20 - 05/08/20 [facility] Adult [address] [place] [address]- Allergies, Adverse Reactions, Alerts Substance Reaction Severity [...] Guardian Refuses 1Result Comment: Pt tolerated well. [facility] #[id number] 2Location History: [facility] 3Result Comment: [05/06/2017] [facility]:4629-6938-36 Medications albuterol 0.083% inhalation solution 3 mL = 2.5 mg, Inhalation, Every 6 hours, # 120 each, 2 Refills, Maintenance, 04/30/20 11:23:00 EST, Solution, [facility] #57386, 168, cm, 04/30/20 11:04:00 EST, Height, 63.5, [...] Refills, Soft Stop, 05/03/20 16:00:00 EST, Tablet, [facility] #[id number], Partial fill upon patient request if the prescription is for a schedule IIopioid drug., 168, cm, 04/30/20 11:04:00 EST, Heigh... Start Date: 05/03/20 Status: Ordered Creon 36,000 units oral delayed release capsule 1 capsule, By Mouth, 3 times a day, with each meal, # 90 capsule, 3 Refills, Maintenance, 08/07/19 11:39:00 EDT, [facility] #[id number], 1 capsule By Mouth 3 times a day,Instr:with each meal, 168, cm, 08/07/19 9:46:00 EDT, Height, 63.5, kg, 08/06... Start Date: 08/07/19 Status: Ordered Crestor 40 mg oral tablet 1 tablet = 40 mg, By Mouth, Daily, # 90 tablet, 3 Refills, Maintenance, 04/22/20 13:08:00 EST, Tablet, [facility] #[id number], 168, cm, 04/22/20 12:49:00 EST, Height, 63.5, [...] 04/22/20 13:38:00 EST, Route to Pharmacy Electronically, [facility] #[id number], Partial fill upon patient request, 168, cm, [...] 5 Refills, Maintenance, 04/22/20 13:08:00 EST, Tablet, [facility] #62682, 1 tablet By Mouth Daily,x30 days, 168, cm, 04/22/20 12:49:00 EST, Height, 63.5, kg, 08/07/19 9:46:00 EDT, Dry Weight Start Date: 04/22/20 Stop Date: 10/19/20 Status: Ordered omeprazole 40 mg oral enteric coated capsule 1 capsule = 40 mg, By Mouth, Daily, # 30 capsule, 10 Refills, Maintenance, 04/22/20 13:08:00 EST, EC Capsule, [facility] #[id number], 168, cm, 04/22/20 12:49:00 EST, Height, 63.5, [...] tablet, 0 Refills, Maintenance, 05/03/20 16:00:00 EST, [facility] #[id number], Partial fill upon patient request if the prescription is for a schedule II opioid... Start Date: 05/03/20 Status: Ordered ProAir HFA 90 mcg/inh inhalation aerosol with adapter 2, puffs, Inhalation, Every 6 hours, PRN, # 8.5 Gm, Refills 2, Tot. Refills 2, Maintenance, 04/22/20 13:08:00 EST, Aerosol, Route to Pharmacy Electronically, [id number], [facility] #27056, 168, cm, 04/22/20 12:49:00... Start Date: 04/22/20 Status: Ordered tamsulosin 0.4 mg oral capsule 0.4 mg, 1, capsule, By Mouth, Daily, PER BELL HODGES, # 90 capsule, Refills 1, Tot. Refills 1, Maintenance, 04/29/20 16:06:00 EST, Route to Pharmacy Electronically, [facility] #[id number],Partial fill upon patient request, 168, cm, ... Start Date: 04/29/20 Status: Ordered tiZANidine 4 mg oral capsule 2 capsule = 8 mg, By Mouth, 3 times a day, 0 Refills, Maintenance, 10/13/19 10:32:00 EDT Start Date: 10/13/19 Status: Ordered traZODone 150 mg oral tablet 1 tablet, By Mouth, Daily at bedtime, PRN NEEDED FOR SLEEP, # 30 tablet, 5 Refills, Maintenance,04/22/20 13:08:00 EST, [id number], 168, cm, 04/22/20 12:49:00 EST, Height, 63.5, [...] 2018. 2Repeat EGD in 07/2020 for surveillance 57991; repeat 2019 4R shoulder 2017 5Dr. Jimbo (ENT surgeons) Social History Social History Type Response Smoking Status Current every day herve toney entered on: 12/17/15 Sex
--- OUTSIDE RECORDS SUMMARY | 2022-12-14 11:05 | XMS_ITS | Continuity of Care Document ---
Author Name Unknown Organization [facility] [place] Address [address] [place] [address]- Care Team Providers Care Patient Support Specialist Name Role Phone Casey Suarez MD Primary Care Physician [place] [facility] [place](s): 10/13/19 - 10/20/19 [facility] Adult [address] [place] [address]- [facility] Attending Physician: Tyra Dowling NP Referring Physician: [...] Guardian Refuses 1Result Comment: Pt tolerated well. [facility] #[id number] 2Location History: [facility] 3Result Comment: [05/06/2017] [facility]:4807-2270-68 Medications albuterol 0.083% inhalation solution 3 mL [...] capsule, 3 Refills, Maintenance, 08/07/19 11:39:00 EDT, [facility] #[id number], 1 capsule By Mouth 3 times a [...] 05/04/19 14:51:08 EST, Route to Pharmacy Electronically, [id number], [facility] #09165, 168, cm, 05/02/19 8:32:30... Start Date: 05/04/19 Stop Date: 09/01/19 Status: Ordered lisinopril 10 mg oral tablet See Instructions, TAKE 1 TABLET BY MOUTH EVERY DAY, # 30 tablet, Refills 5, Tot. Refills 5, Soft Stop, 08/28/19 10:33:00 EDT, Instructions Replace Required Details, Route to Pharmacy Electronically, [facility] #[id number], 168, cm, 08/07/19 9:46:... Start Date: 08/28/19 [...] 10 Refills, Maintenance, 08/14/19 8:52:00 EDT, ECCapsule, [facility] #48000, 168, cm, 08/07/19 9:46:00 EDT, Height, 63.5, [...] 16:26:00 EST, Aerosol, Route to Pharmacy Electronically, [id number], [facility] #19744, 168, cm, 07/24/19 9:01:00... Start Date: 07/24/19 [...] 30 tablet, 5 Refills, Maintenance,06/27/19 16:32:00 EST, [facility] #06632, 168, cm, 05/19/19 8:56:00 EST, Height, 57.4, [...] 2019. 2Repeat EGD in 07/2020 for surveillance 53980; repeat 2019 4R shoulder 2017 5Dr. Jimbo (ENT surgeons) Vital Signs Most recent to oldest [Reference Range]: 1 Height 168 cm (10/13/19 10:19 AM) Social History Social History Type Response Smoking Status Current every day herve toney entered on: 12/17/15 Sex
--- OUTSIDE RECORDS SUMMARY | 2022-12-14 11:05 | XMS_ITS | Continuity of Care Document ---
Author Name Unknown Organization [facility] [place] Address [address] [place] [address]- Care Team Providers Care Bobcat Driver/Labor Name Role Phone Casey Suarez MD Primary Care Physician [phone] Encounter [facility] Date(s): 11/05/21 - 12/06/21 [facility] Adult [address] [place] [address]- Attending Physician: Derrick Montgomery MD Allergies, Adverse [...] [facility]# [address] THE [address] [phone] 2Result Comment: Pt tolerated well. [facility] #[id number] 3Location History: [facility] 4Result Comment: [05/06/2017] [facility]:2339-5548-99 Medications aspirin 81 mg oral delayed release tablet 1 tablet, By Mouth, Daily, # 90 tablet, 0 Refills, [facility] #[id number], 167.6, cm, :54:00 EDT, Height, 63.6, kg, 09/22/21 9:54:00 EDT, Dry Weight Start Date: 10/10/21 Status: Ordered atorvastatin 80 mg oral tablet 1 tablet = 80 mg, By Mouth, Daily at bedtime, # 90 tablet, 3 Refills, Maintenance, 08/14/21 15:28:00 EDT, Tablet, [facility] #[id number], 167.64, cm, 08/14/21 15:12:00 EDT, Height, 63.64, kg, 10/30/20 11:22:00 EDT, Dry Weight Start Date: 08/14/21 Stop Date: 08/09/22 Status: Ordered clopidogrel 75 mg oral tablet 75 mg, 1, tablet, By Mouth, Daily, # 30 tablet, Refills 11, Tot. Refills 11, Maintenance, 12/09/20 17:12:00 EDT, Route to Pharmacy Electronically, [facility] #[id number], Partial fill upon patient request if the prescription is for a schedule II... Start Date: 12/09/20 Status: Ordered EpiPen 2-Sameer 0.3 mg injectable kit = 0.3 mg, Intramuscular, Once, Must go to hospital if used, # 1 each, 1 Refills, Soft Stop, 01/09/21 14:45:00 EDT, [facility] #[id number], 167.64, cm, 01/09/21 14:27:00 EDT, Height, 63.64, [...] Mouth, Daily, # 90 tablet, 1 Refills, [facility] #32781, 167.6, cm, :54:00 EDT, Height, 63.6, kg, 09/22/21 9:54:00 EDT, Dry Weight Start Date: 10/06/21 Status: Ordered multivitamin Multiple Vitamins oral tablet 1 tablet, By Mouth, Daily, # 90 tablet, 1 Refills, [facility] #[id number], 90, TAKE 1 TABLET BY MOUTH DAILY, 167.64, cm, 04/21/21 13:13:00 EST, Height, 63.64, kg, 10/30/20 11:22:00 EDT, Dry Weight Start Date: 07/10/21 Status: Ordered Nutritional Supplements See Instructions, # 90 each, Refills 11, Tot. Refills 11, Maintenance, High Protein Ensure Use TID DX Pancreatitis, Weight Loss ICD 10 K85.90 R63.4 3 [place] 3 Vanilla Height 5'6 Weight 130lbs, 12/20/20 7:33:00 EDT, Supply Start Date: 12/20/20 Status: Ordered omeprazole 40 mg oral enteric coated capsule 1 capsule = 40 mg, By Mouth, Daily, # 30 capsule, 2 Refills, Maintenance, 09/10/21 14:25:00 EDT, ECCapsule, [facility] #44106, 167.64, cm, 09/01/21 8:31:00 EDT, Height, 63.64, kg, 10/30/2110:22:00 EDT, Dry Weight Start Date: 09/10/21 Stop Date: 12/09/21 Status: Ordered Paxlovid 150 mg-100 mg oral tablet See Instructions, follow package instructions, not renally impaired, # 30 tablet, 0 Refills, Maintenance, 09/23/21 15:45:00 EDT, [facility] #[id number], Partial fill upon patient request if the prescription is for a schedule II opioid drug., foll... Start Date: 09/23/21 Status: Ordered PEG-3350 with Electrolytes (Eqv-GoLYTELY) oral powder for reconstitution See Instructions, 1 glass every 15-30 minutes until finished, # 4,000 mL, 0 Refills, Maintenance, 08/26/20 16:28:00 EDT, [facility] #[id number], Partial fill upon patient request if the prescription is for a schedule II opioid drug., 1 glass ever... Start Date: 08/26/20 Status: Ordered ProAir HFA 90 mcg/inh inhalation aerosol with adapter 2, puffs, Inhalation, Every 6 hours, PRN, # 8.5 Gm, Refills 5, Tot. Refills 5, Maintenance, 07/04/20 8:18:00 EST, Aerosol, Route to Pharmacy Electronically, [id number], [facility] #17231, 168, cm, 06/14/20 10:38:00... Start Date: 07/04/20 [...] capsule, Refills 1, Route to Pharmacy Electronically, [facility] #17290, 167.6, cm, 09/22/21 9:54:00 EDT, Height, 63.6, [...] FOR SLEEP, # 90 tablet, 1 Refills, [facility] #81845, 167.6, cm, 09/22/21 9:54:00 EDT, Height, 63.6, [...] 2018. 2Repeat EGD in 07/2020 for surveillance 94292; repeat 2019 4R shoulder 2018 5Dr. Jimbo (ENT surgeons) Social History Social History Type Response Smoking Status Current every day herve toney entered on: 12/17/15 Sex
--- OUTSIDE RECORDS SUMMARY | 2022-12-14 11:05 | XMS_ITS | Continuity of Care Document ---
Author Name Unknown Organization [facility] [place] Address [address] [place] [address]- Care Team Providers Care Systems Programmer Analyst Name Role Phone Casey Suarez MD Primary Care Physician Encounter [facility] Date(s): 05/26/19 - 06/05/19 [facility] Adult [address] [place] [address]- [facility] Attending Physician: Admtr, Ar8 Admitting Physician: Admtr, [...] Pt tolerated well. [facility] #[id number] 2Location History: [facility] 3Result Comment: [05/06/2017] [facility]:7667-2565-09 Medications albuterol 0.083% inhalation solution 3 mL = 2.5 mg, Inhalation, Every 6 hours, # 120 each, 2 Refills, Maintenance, 07/18/18 13:46:17 EST, Solution Start Date: 07/18/18 Status: Ordered aspirin 325 mg oral tablet 325 mg, 1, tablet, By Mouth, Daily, # 90 tablet, Refills 1, Tot. Refills 1, Maintenance, 05/19/19 9:23:00 EST, Route to Pharmacy Electronically, [facility] #[id number], 168, cm, 05/19/19 8:56:00EST, Height, 57.4, kg, [...] 05/04/19 14:51:08 EST, Route to Pharmacy Electronically, [id number], [facility] #[id number], 168, cm, 05/02/19 8:32:30... Start Date: 05/04/19 Stop Date: 09/01/19 Status: Ordered gabapentin 300 mg oral capsule See Instructions, TAKE 1 CAPSULE BY MOUTH THREE TIMES DAILY, # 90 capsule, Refills 1, Tot. Refills 1, Soft Stop, 04/06/19 11:37:38 EST, Instructions Replace Required Details, Route to Pharmacy Electronically, [id number], [facility] Start Date: 04/06/19 Status: Ordered lisinopril 10 mg oral tablet See Instructions, TAKE 1 TABLET BY MOUTH EVERY DAY, # 30 tablet, Refills 2, Tot. Refills 2, Soft Stop, 05/22/19 16:32:00 EST, Instructions Replace Required Details, Route to Pharmacy Electronically, [facility] #[id number], 168, cm, 05/19/19 8:56:... Start Date: 05/22/19 [...] TAKE 1 TABLET BY MOUTH TWICE DAILY, [facility] #[id number] Start Date: 02/27/19 Status: Ordered oxyCODONE 5 [...] 11:41:14 EST, Aerosol, Route to Pharmacy Electronically, [id number], [facility]/pharmacy #[id number] Start Date: 07/22/18 [...] EVERY NIGHT AT BEDTIME NEEDED FOR SLEEP, [facility] #[id number] Start Date: 12/23/18 Status: Ordered Vicodin 5/500 [...] 2018. 2Repeat EGD in 07/2020 for surveillance 23376; repeat 2019 4R shoulder 2018 5Dr. Jimbo (ENT surgeons) Social History Social History Type Response Smoking Status Current every day herve toney entered on: 12/17/15 Sex
--- OUTSIDE RECORDS SUMMARY | 2022-12-14 11:05 | XMS_ITS | Continuity of Care Document ---
Author Name Unknown Organization [facility] [place] Address [address] [place] [address]- Care Team Providers Care Manager Of Regulatory Affairs Name Role Phone Daniela BROWN, Casey Jiménez Primary Care Physician [phone] [place] [facility] [place](s): 11/22/20 - 11/29/20 [facility] Adult [address] [place] [address]- Encounter Diagnosis Infected sebaceous cyst of skin(Discharge Diagnosis) - 11/22/20 Attending Physician: Josey OSORIO, Tyra Willis Allergies, [...] [facility] #[id number] 2Location History: [facility] 3Result Comment: [05/06/2017] [facility]:[id number] Medications amiodarone 200 mg oral tablet 200 mg, 1, tablet, By Mouth, 2 times a day, # 60 tablet, Refills 0, Tot. Refills 0, Maintenance, 11/13/20 9:34:00 EDT, Route to Pharmacy Electronically, [facility], Partial fill upon patient request if the prescription is for a schedule... Start Date: 11/13/20 Status: Ordered aspirin 81 mg oral delayed release tablet 81 mg, By Mouth, Daily, # 30 tablet, Refills 0, Tot. Refills 0, Maintenance, 11/13/20 9:32:00 EDT, Route to Pharmacy Electronically, [facility], Partial fill upon patient request if theprescription is for a schedule II opioid drug., 167... Start Date: 11/13/20 Stop Date: 12/13/20 Status: Ordered atorvastatin 80 mg oral tablet 1 tablet = 80 mg, By Mouth, Daily at bedtime, # 30 tablet, 0 Refills, Maintenance, 11/13/20 9:34:00EDT, Tablet, [facility], Partial fill upon patient request if the prescription is fora schedule II opioid drug., 167.64, cm, 11/13/20 6:... Start Date: 11/13/20 Status: Ordered Bactrim DS 800 mg-160 mg oral tablet 1 tablet, By Mouth, 2 times a day, for 7 days, # 14 tablet, 0 Refills, Acute 12/02/20 18:20:00 EDT,11/25/20 18:20:00 EDT, Tablet, [facility] #[id number], Partial fill upon patient request if the prescription is for a schedule II opioid drug., 1... Start Date: 11/25/20 Stop Date: 12/02/20 Status: Ordered clopidogrel 75 mg oral tablet 75 mg, 1, tablet, By Mouth, Daily, # 30 tablet, Refills 0, Tot. Refills 0, Maintenance, 11/13/20 9:34:00 EDT, Route to Pharmacy Electronically, [facility], Partial fill upon patient request if the prescription is for a schedule II opioid... Start Date: 11/13/20 Status: Ordered docusate sodium 100 mg oral tablet = 100 mg, By Mouth, 2 times a day, # 6 tablet, 0 Refills, Maintenance, 11/13/20 9:34:00 EDT, Tablet, [facility], Partial fill upon patient [...] Acute12/02/20 15:58:00 EDT, 11/22/20 15:58:00 EDT, Tablet, [email or web address] #[id number], Partial fill upon patient request if the [...] 11/13/20 9:32:00 EDT, Route to Pharmacy Electronically, [facility], Partial fill upon patient request, 167.64, cm, 11/13/20 6:08:00 EDT, H... Start Date: 11/13/20 Stop Date: 06/11/21 Status: Ordered metoprolol 50 mg oral tablet 50 mg, 1, tablet, By Mouth, 2 times a day, # 60 tablet, Refills 0, Tot. Refills 0, Maintenance, 11/13/20 9:33:00 EDT, [facility] Pharm[facility], [facility], Partial fill upon patient request if the prescription is for a schedule I... Start Date: 11/13/20 Stop Date: 12/13/20 Status: Ordered multivitamin Multiple Vitamins oral tablet 1 tablet, By Mouth, Daily, # 30 tablet, 5 Refills, Maintenance, 04/22/20 13:08:00 EST, Tablet, [facility] #[id number], 1 tablet By Mouth Daily,x30 days, 168, cm, 04/22/20 12:49:00 EST, Height, 63.5, kg, 08/07/19 9:46:00 EDT, Dry Weight Start Date: 04/22/20 Stop Date: 10/19/20 Status: Ordered Nutritional Supplements See Instructions, # 6 each, Refills 11, Tot. Refills 11, Maintenance, High Protein Ensure Use TID DX Pancreatitis, Weight Loss ICD 10 K85.90 R63.4 3 [place] 3 Vanilla Height 5'6 Weight 130lbs, 11/25/20 10:55:00 EDT, Supply Start Date: 11/25/20 Status: Ordered omeprazole 40 mg oral enteric coated capsule 1 capsule = 40 mg, By Mouth, Daily, # 30 capsule, 10 Refills, Maintenance, 04/22/20 13:08:00 EST, EC Capsule, [facility] #[id number], 168, cm, 04/22/20 12:49:00 EST, Height, 63.5, kg, 08/07/19 9:46:00 EDT, Dry Weight Start Date: 04/22/20 Stop Date: 03/18/21 Status: Ordered PEG-3350 with Electrolytes (Eqv-GoLYTELY) oral powder for reconstitution See Instructions, 1 glass every 15-30 minutes until finished, # 4,000 mL, 0 Refills, Maintenance, 08/26/20 16:28:00 EDT, [facility] #[id number], Partial fill upon patient request if the prescription is for a schedule II opioid drug., 1 glass ever... Start Date: 08/26/20 Status: Ordered ProAir HFA 90 mcg/inh inhalation aerosol with adapter 2, puffs, Inhalation, Every 6 hours, PRN, # 8.5 Gm, Refills 5, Tot. Refills 5, Maintenance, 07/04/20 8:18:00 EST, Aerosol, Route to Pharmacy Electronically, [id number], [facility] #[id number], 168, cm, 06/14/20 10:38:00... Start Date: 07/04/20 Status: Ordered tamsulosin 0.4 mg oral capsule 0.4 mg, 1, capsule, By Mouth, Daily, PER TYRA HODGES, # 90 capsule, Refills 1, Tot. Refills 1, Maintenance, 10/16/20 8:15:00 EDT, Route to Pharmacy Electronically, [facility] #[id number], Partial fill upon patient request, 168, cm, 10/16/20... Start Date: 10/16/20 Status: Ordered traZODone 150 mg oral tablet 1 tablet, By Mouth, Daily at bedtime, PRN NEEDED FOR SLEEP, # 90 tablet, 1 Refills, Maintenance,10/16/20 8:15:00 EDT, [facility] #[id number], 168, cm, 10/16/20 7:49:00 EDT, Height, 60, [...] 2018. 2Repeat EGD in 07/2020 for surveillance 15287; repeat 2019 4R shoulder 2017 5Dr. Jimbo (ENT surgeons) Diagnosis Diagnosis Type Effective Dates Health Status Cl inical Service Informant Infected sebaceous cyst of skin Discharge Diagnosis 11/22/20 Vital Signs Most recent to oldest [Reference Range]: 1 Height 167.64 cm (11/22/20 3:34 PM) Weight 59.4 kg (11/22/20 3:34 PM) Oxygen Saturation [94-100 %] 98 % (11/22/20 3:34 PM) Pulse Rate [55-90 bpm] 72 bpm (11/22/20 3:34 PM) Body Mass Index [18.5-24.99] 21.14 (11/22/20 3:34 PM) Blood Pressure [90-138/55-84 mm Hg] 108/ 54mm Hg (11/22/20 3:34 PM) Temperature [96.8-100.4 DegF] 98.3 DegF (11/22/20 3:34 PM) Mode of Delivery (Oxygen) Room air (11/22/20 3:34 PM) Blood pressure sites Arm, left (11/22/20 3:34 PM) Temperature Route Oral (11/22/20 3:34 PM) Weight Obtained Via Standing scale (11/22/20 3:34 PM) Social History Social History Type Response Smoking Status Current every day herve toney entered on: 12/17/15 Sex
--- OUTSIDE RECORDS SUMMARY | 2022-12-14 11:05 | XMS_ITS | Continuity of Care Document ---
Author Name Unknown Organization [facility] [place] Address [address] [place] [address]- Care Team Providers Care Ecd Name Role Phone Casey Suarez MD Primary Care Physician Encounter [facility] Date(s): 05/10/20 - 06/09/20 [facility] Adult [address] [place] [address]- Allergies, Adverse Reactions, Alerts Substance Reaction Severity [...] Refuses 1Result Comment: Pt tolerated well. [facility] #[id number] 2Location History: [facility] 3Result Comment: [05/06/2017] [facility]:[id number] Medications albuterol 0.083% inhalation solution 3 mL = 2.5 mg, Inhalation, Every 6 hours, # 120 each, 2 Refills, Maintenance, 04/30/20 11:23:00 EST, Solution, [facility][id number], 168, cm, 04/30/20 11:04:00 EST, Height, 63.5, [...] Refills, Soft Stop, 05/03/20 16:00:00 EST, Tablet, [facility] #[id number], Partial fill upon patient request if the prescription is for a schedule IIopioid drug., 168, cm, 04/30/20 11:04:00 EST, Heigh... Start Date: 05/03/20 Status: Ordered Creon 36,000 units oral delayed release capsule 1 capsule, By Mouth, 3 times a day, with each meal, # 90 capsule, 3 Refills, Maintenance, 08/07/19 11:39:00 EDT, [facility] #[id number], 1 capsule By Mouth 3 times a day,Instr:with each meal, 168, cm, 08/07/19 9:46:00 EDT, Height, 63.5, kg, 08/06... Start Date: 08/07/19 Status: Ordered Crestor 40 mg oral tablet 1 tablet = 40 mg, By Mouth, Daily, # 90 tablet, 3 Refills, Maintenance, 04/22/20 13:08:00 EST, Tablet, [facility] #[id number], 168, cm, 04/22/20 12:49:00 EST, Height, 63.5, [...] 04/22/20 13:38:00 EST, Route to Pharmacy Electronically, [facility] #[id number], Partial fill upon patient request, 168, cm, [...] 5 Refills, Maintenance, 04/22/20 13:08:00 EST, Tablet, [facility] #[id number], 1 tablet By Mouth Daily,x30 days, 168, cm, 04/22/20 12:49:00 EST, Height, 63.5, kg, 08/07/19 9:46:00 EDT, Dry Weight Start Date: 04/22/20 Stop Date: 10/19/20 Status: Ordered omeprazole 40 mg oral enteric coated capsule 1 capsule = 40 mg, By Mouth, Daily, # 30 capsule, 10 Refills, Maintenance, 04/22/20 13:08:00 EST, EC Capsule, [facility] #[id number], 168, cm, 04/22/20 12:49:00 EST, Height, 63.5, [...] tablet, 0 Refills, Maintenance, 05/03/20 16:00:00 EST, [facility] #[id number], Partial fill upon patient request if the prescription is for a schedule II opioid... Start Date: 05/03/20 Status: Ordered ProAir HFA 90 mcg/inh inhalation aerosol with adapter 2, puffs, Inhalation, Every 6 hours, PRN, # 8.5 Gm, Refills 2, Tot. Refills 2, Maintenance, 04/22/20 13:08:00 EST, Aerosol, Route to Pharmacy Electronically, [id number], [facility] #[id number], 168, cm, 04/22/20 12:49:00... Start Date: 04/22/20 Status: Ordered tamsulosin 0.4 mg oral capsule 0.4 mg, 1, capsule, By Mouth, Daily, PER BELL HODGES, # 90 capsule, Refills 1, Tot. Refills 1, Maintenance, 04/29/20 16:06:00 EST, Route to Pharmacy Electronically, [facility] #[id number],Partial fill upon patient request, 168, cm, ... Start Date: 04/29/20 Status: Ordered tiZANidine 4 mg oral capsule 2 capsule = 8 mg, By Mouth, 3 times a day, 0 Refills, Maintenance, 10/13/19 10:32:00 EDT Start Date: 10/13/19 Status: Ordered traZODone 150 mg oral tablet 1 tablet, By Mouth, Daily at bedtime, PRN NEEDED FOR SLEEP, # 30 tablet, 5 Refills, Maintenance,04/22/20 13:08:00 EST, [facility] #[id number], 168, cm, 04/22/20 12:49:00 EST, Height, 63.5, [...] 2019. 2Repeat EGD in 07/2020 for surveillance 66419; repeat 2019 4R shoulder 2017 5Dr. Jimbo (ENT surgeons) Social History Social History Type Response Smoking Status Current every day herve toney entered on: 12/17/15 Sex
--- OUTSIDE RECORDS SUMMARY | 2022-12-14 11:05 | XMS_ITS | Continuity of Care Document ---
Author Name Unknown Organization [facility] [place] Address [address] [place] [address]- Care Team Providers Care Quantitative Analyst Marketing Name Role Phone Casey Suarez MD Primary Care Physician [place] [facility] [place] 05/31/19 [facility] Adult [address] [place] [address]- [facility] Attending Physician: Tyra Dowling NP Referring Physician: [...] Guardian Refuses 1Result Comment: Pt tolerated well. [facility] #[id number] 2Location History: [place] 3Result Comment: [05/06/2017] [facility]:2272-2622-76 Medications albuterol 0.083% inhalation solution 3 mL = 2.5 mg, Inhalation, Every 6 hours, # 120 each, 2 Refills, Maintenance, 07/18/18 13:46:17 EST, Solution Start Date: 07/18/18 Status: Ordered aspirin 325 mg oral tablet 325 mg, 1, tablet, By Mouth, Daily, # 90 tablet, Refills 1, Tot. Refills 1, Maintenance, 05/19/19 9:23:00 EST, Route to Pharmacy Electronically, [facility] #[id number], 168, cm, 05/19/19 8:56:00EST, Height, 57.4, kg, [...] 05/04/19 14:51:08 EST, Route to Pharmacy Electronically, [id number], [facility] #[id number], 168, cm, 05/02/19 8:32:30... Start Date: 05/04/19 Stop Date: 09/01/19 Status: Ordered gabapentin 300 mg oral capsule See Instructions, TAKE 1 CAPSULE BY MOUTH THREE TIMES DAILY, # 90 capsule, Refills 1, Tot. Refills 1, Soft Stop, 04/06/19 11:37:38 EST, Instructions Replace Required Details, Route to Pharmacy Electronically, [id number], [facility]. Start Date: 04/06/19 Status: Ordered lisinopril 10 mg oral tablet See Instructions, TAKE 1 TABLET BY MOUTH EVERY DAY, # 30 tablet, Refills 2, Tot. Refills 2, Soft Stop, 05/22/19 16:32:00 EST, Instructions Replace Required Details, Route to Pharmacy Electronically, [facility] #[id number], 168, cm, 05/19/19 8:56:... Start Date: 05/22/19 [...] TAKE 1 TABLET BY MOUTH TWICE DAILY, [facility] #[id number] Start Date: 02/27/19 Status: Ordered oxyCODONE 5 [...] 11:41:14 EST, Aerosol, Route to Pharmacy Electronically, [id number], [facility] #[id number] Start Date: 07/22/18 [...] EVERY NIGHT AT BEDTIME NEEDED FOR SLEEP, [facility] #[id number] Start Date: 12/23/18 Status: Ordered Vicodin 5/500 [...] 2019. 2Repeat EGD in 07/2020 for surveillance 30715; repeat 2019 4R shoulder 2018 5DrShabnam Choi (ENT surgeons) Social History Social History Type Response Smoking Status Current every day herve toney entered on: 12/17/15 Sex
--- OUTSIDE RECORDS SUMMARY | 2022-12-14 11:05 | XMS_ITS | Continuity of Care Document ---
Author Name Unknown Organization [facility] Address [address] [place] [address]- Care Team Providers Care Remarketing Manager Name Role Phone Casey Suarez MD Primary Care Physician [facility]): 09/[facility]/21 - 10/23/21 [facility] Adult [address] [place] [address]- Allergies, Adverse Reactions, Alerts Substance Reaction Severity [...] en Parent Or Guardian Refuses 1Result Comment: [facility]# [address] [id number] 2Result Comment: Pt tolerated well. [facility] #[id number] 3Location History: [facility] 4Result Comment: [05/06/2017] [facility]:[id number] Medications aspirin 81 mg oral delayed release tablet 1 tablet, By Mouth, Daily, # 90 tablet, 0 Refills, [facility] #[id number], 167.6, cm, :54:00 EDT, Height, 63.6, kg, 09/22/21 9:54:00 EDT, Dry Weight Start Date: 10/10/21 Status: Ordered atorvastatin 80 mg oral tablet 1 tablet = 80 mg, By Mouth, Daily at bedtime, # 90 tablet, 3 Refills, Maintenance, 08/14/21 15:28:00 EDT, Tablet, [facility] #[id number], 167.64, cm, 08/14/21 15:12:00 EDT, Height, 63.64, kg, 10/30/20 11:22:00 EDT, Dry Weight Start Date: 08/14/21 Stop Date: 08/09/22 Status: Ordered clopidogrel 75 mg oral tablet 75 mg, 1, tablet, By Mouth, Daily, # 30 tablet, Refills 11, Tot. Refills 11, Maintenance, 12/09/20 17:12:00 EDT, Route to Pharmacy Electronically, [facility] #[id number], Partial fill upon patient request if the prescription is for a schedule II... Start Date: 12/09/20 Status: Ordered EpiPen 2-Sameer 0.3 mg injectable kit = 0.3 mg, Intramuscular, Once, Must go to hospital if used, # 1 each, 1 Refills, Soft Stop, 01/09/21 14:45:00 EDT, [facility] #[id number], 167.64, cm, 01/09/21 14:27:00 EDT, Height, 63.64, [...] Mouth, Daily, # 90 tablet, 1 Refills, [facility] #70476, 167.6, cm, :54:00 EDT, Height, 63.6, kg, 09/22/21 9:54:00 EDT, Dry Weight Start Date: 10/06/21 Status: Ordered multivitamin Multiple Vitamins oral tablet 1 tablet, By Mouth, Daily, # 90 tablet, 1 Refills, [facility] #[id number], 90, TAKE 1 TABLET BY MOUTH DAILY, 167.64, cm, 04/21/21 13:13:00 EST, Height, 63.64, kg, 10/30/20 11:22:00 EDT, Dry Weight Start Date: 07/10/21 Status: Ordered Nutritional Supplements See Instructions, # 90 each, Refills 11, Tot. Refills 11, Maintenance, High Protein Ensure Use TID DX Pancreatitis, Weight Loss ICD 10 K85.90 R63.4 3 [place] 3 Vanilla Height 5'6 Weight 130lbs, 12/20/20 7:33:00 EDT, Supply Start Date: 12/20/20 Status: Ordered omeprazole 40 mg oral enteric coated capsule 1 capsule = 40 mg, By Mouth, Daily, # 30 capsule, 2 Refills, Maintenance, 09/10/21 14:25:00 EDT, ECCapsule, [facility] #[id number], 167.64, cm, 09/01/21 8:31:00 EDT, Height, 63.64, kg, 10/30/2110:22:00 EDT, Dry Weight Start Date: 09/10/21 Stop Date: 12/09/21 Status: Ordered Paxlovid 150 mg-100 mg oral tablet See Instructions, follow package instructions, not renally impaired, # 30 tablet, 0 Refills, Maintenance, 09/23/21 15:45:00 EDT, [facility] #[id number], Partial fill upon patient request if the prescription is for a schedule II opioid drug., foll... Start Date: 09/23/21 Status: Ordered PEG-3350 with Electrolytes (Eqv-GoLYTELY) oral powder for reconstitution See Instructions, 1 glass every 15-30 minutes until finished, # 4,000 mL, 0 Refills, Maintenance, 08/26/20 16:28:00 EDT, [facility] #[id number], Partial fill upon patient request if the prescription is for a schedule II opioid drug., 1 glass ever... Start Date: 08/26/20 Status: Ordered ProAir HFA 90 mcg/inh inhalation aerosol with adapter 2, puffs, Inhalation, Every 6 hours, PRN, # 8.5 Gm, Refills 5, Tot. Refills 5, Maintenance, 07/04/20 8:18:00 EST, Aerosol, Route to Pharmacy Electronically, [id number], [facility] #[id number], 168, cm, 06/14/20 10:38:00... Start Date: 07/04/20 [...] capsule, Refills 1, Route to Pharmacy Electronically, [facility] #[id number], 167.6, cm, 09/22/21 9:54:00 EDT, Height, 63.6, [...] FOR SLEEP, # 90 tablet, 1 Refills, [facility] #[id number], 167.6, cm, 09/22/21 9:54:00 EDT, Height, 63.6, [...] 2019. 2Repeat EGD in 07/2020 for surveillance 33691; repeat 2019 4R shoulder 2018 5Dr. Jimbo (ENT surgeons) Social History Social History Type Response Smoking Status Current every day herve toney entered on: 12/17/15 Sex
--- OUTSIDE RECORDS SUMMARY | 2022-12-14 11:05 | XMS_ITS | Continuity of Care Document ---
Author Name Unknown Organization [facility] Address [address] [place] [address]- Care Team Providers Care Airconditioning Engineer Name Role Phone Casey Suarez MD Primary Care Physician [phone] [facility] 12[facility]12[facility]20 - 01/11/21 [facility] Adult [address] [place] [address]- Allergies, Adverse Reactions, Alerts Substance Reaction Severity [...] Comment: Pt tolerated well. [facility] #[id number] 2Location History: [facility] 3Result Comment: [05/06/2017] [facility]:[id number] Medications amiodarone 200 mg oral tablet 200 mg, 1, tablet, By Mouth, 2 times a day, # 60 tablet, Refills 0, Tot. Refills 0, Maintenance, 11/13/20 9:34:00 EDT, Route to Pharmacy Electronically, [facility], Partial fill upon patient request if the prescription is for a schedule... Start Date: 11/13/20 Status: Ordered aspirin 81 mg oral delayed release tablet 81 mg, 1, tablet, By Mouth, Daily, # 90 tablet, Refills 1, Tot. Refills 1, Maintenance, 01/09/21 14:52:00 EDT, Route to Pharmacy Electronically, [facility] #[id number], Partial fill upon patientrequest if the prescription is for a schedule II op... Start Date: 01/09/21 Status: Ordered atorvastatin 80 mg oral tablet 1 tablet = 80 mg, By Mouth, Daily at bedtime, # 90 tablet, 4 Refills, Maintenance, 01/09/21 14:44:00 EDT, Tablet, [facility] #[id number], Partial fill upon patient request if the prescription isfor a schedule II opioid drug., 167.64, cm, ... Start Date: 01/09/21 Stop Date: 04/04/22 Status: Ordered clopidogrel 75 mg oral tablet 75 mg, 1, tablet, By Mouth, Daily, # 30 tablet, Refills 11, Tot. Refills 11, Maintenance, 12/09/20 17:12:00 EDT, Route to Pharmacy Electronically, [facility] #[id number], Partial fill upon patient request if the prescription is for a schedule II... Start Date: 12/09/20 Status: Ordered EpiPen 2-Sameer 0.3 mg injectable kit = 0.3 mg, Intramuscular, Once, Must go to hospital if used, # 1 each, 1 Refills, Soft Stop, 01/09/21 14:45:00 EDT, [email or web address] #[id number], 167.64, cm, 01/09/21 14:27:00 EDT, Height, 63.64, [...] 1 Refills, Maintenance, 01/09/21 14:44:00 EDT, Tablet, [facility] #[id number], 1 tablet By Mouth Daily, 167.64, cm, 01/09/21 14:27:00 EDT, Height, 63.64, kg, 10/30/20 11:22:00 EDT, Dry Weight Start Date: 01/09/21 Status: Ordered Nutritional Supplements See Instructions, # 90 each, Refills 11, Tot. Refills 11, Maintenance, High Protein Ensure Use TID DX Pancreatitis, Weight Loss ICD 10 K85.90 R63.4 3 [place] 3 Vanilla Height 5'6 Weight 130lbs, 12/20/20 7:33:00 EDT, Supply Start Date: 12/20/20 Status: Ordered omeprazole 40 mg oral enteric coated capsule 1 capsule = 40 mg, By Mouth, Daily, # 30 capsule, 10 Refills, Maintenance, 04/22/20 13:08:00 EST, EC Capsule, [email or web address] #[id number], 168, cm, 04/22/20 12:49:00 EST, Height, 63.5, [...] mL, 0 Refills, Maintenance, 08/26/20 16:28:00 EDT, [email or web address] #[id number], Partial fill upon patient request if the prescription is for a schedule II opioid drug., 1 glass ever... Start Date: 08/26/20 Status: Ordered ProAir HFA 90 mcg/inh inhalation aerosol with adapter 2, puffs, Inhalation, Every 6 hours, PRN, # 8.5 Gm, Refills 5, Tot. Refills 5, Maintenance, 07/04/20 8:18:00 EST, Aerosol, Route to Pharmacy Electronically, [id number], [facility] #03862, 168, cm, 06/14/20 10:38:00... Start Date: 07/04/20 [...] 10/16/20 8:15:00 EDT, Route to Pharmacy Electronically, [facility] #[id number], Partial fill upon patient request, 168, cm, [...] 90 tablet, 1 Refills, Maintenance,10/16/20 8:15:00 EDT, [facility] #[id number], 168, cm, 10/16/20 7:49:00 EDT, Height, 60, [...] 2019. 2Repeat EGD in 07/2020 for surveillance 14475; repeat 2019 4R shoulder 2018 5DrShabnam Choi (ENT surgeons) Social History Social History Type Response Smoking Status Current every day herve toney entered on: 12/17/15 Sex
--- OUTSIDE RECORDS SUMMARY | 2022-12-14 11:05 | XMS_ITS | Continuity of Care Document ---
Author Name Unknown Organization [facility] [place] Address [address] [place] [address]- Care Team Providers Care Lead Burner Helper Name Role Phone Casey Suarez MD Primary Care Physician [phone] [facility]counter [facility]s): [facility]14[facility]20 - 07/14/20 [facility] Adult [address] [place] [address]- Attending Physician: Admtr, Ar8 Admitting Physician: Admtr, [...] Pt tolerated well. [facility] #[id number] 2Location History: [place] 3Result Comment: [05/06/2017] [facility]:[id number] Medications albuterol 0.083% inhalation solution 3 mL = 2.5 mg, Inhalation, Every 6 hours, # 120 each, 2 Refills, Maintenance, 04/30/20 11:23:00 EST, Solution, [facility] #[id number], 168, cm, 04/30/20 11:04:00 EST, Height, 63.5, kg, 08/07/19 9:46:00 EDT, Dry Weight Start Date: 04/30/20 Status: Ordered Creon 36,000 units oral delayed release capsule 1 capsule, By Mouth, 3 times a day, with each meal, # 90 capsule, 3 Refills, Maintenance, 08/07/19 11:39:00 EDT, [facility] #[id number], 1 capsule By Mouth 3 times a day,Instr:with each meal, 168, cm, 08/07/19 9:46:00 EDT, Height, 63.5, kg, 08/06... Start Date: 08/07/19 Status: Ordered ENSURE/VANILLA ENSURE/VANILLA, See Instructions, # 6 pack/packet, Refills 11, Tot. Refills 11, Maintenance, EnsureMax Protein Formula TID DX Pancreatitis Weight Loss 3 [place] 1 Vanilla, 06/25/20 9:20:00 EST, Compound Start [...] 04/22/20 13:38:00 EST, Route to Pharmacy Electronically, [facility] #[id number], Partial fill upon patient request, 168, cm, [...] 5 Refills, Maintenance, 04/22/20 13:08:00 EST, Tablet, [facility] #[id number], 1 tablet By Mouth Daily,x30 days, 168, cm, 04/22/20 12:49:00 EST, Height, 63.5, kg, 08/07/19 9:46:00 EDT, Dry Weight Start Date: 04/22/20 Stop Date: 10/19/20 Status: Ordered omeprazole 40 mg oral enteric coated capsule 1 capsule = 40 mg, By Mouth, Daily, # 30 capsule, 10 Refills, Maintenance, 04/22/20 13:08:00 EST, EC Capsule, [facility] #92043, 168, cm, 04/22/20 12:49:00 EST, Height, 63.5, [...] Stop 07/24/20 11:31:00 EST, 06/24/20 11:31:00 EST, [facility] #[id number], Partial fill upon patient request if the [...] 8:18:00 EST, Aerosol, Route to Pharmacy Electronically, [id number], [facility] #[id number], 168, cm, 06/14/20 10:38:00... Start Date: 07/04/20 Status: Ordered tamsulosin 0.4 mg oral capsule 0.4 mg, 1, capsule, By Mouth, Daily, PER BELL HODGES, # 90 capsule, Refills 1, Tot. Refills 1, Maintenance, 04/29/20 16:06:00 EST, Route to Pharmacy Electronically, [facility] #[id number],Partial fill upon patient request, 168, cm, ... Start Date: 04/29/20 Status: Ordered tiZANidine 4 mg oral capsule 2 capsule = 8 mg, By Mouth, 3 times a day, 0 Refills, Maintenance, 10/13/19 10:32:00 EDT Start Date: 10/13/19 Status: Ordered traZODone 150 mg oral tablet 1 tablet, By Mouth, Daily at bedtime, PRN NEEDED FOR SLEEP, # 30 tablet, 5 Refills, Maintenance,04/22/20 13:08:00 EST, [facility] #[id number], 168, cm, 04/22/20 12:49:00 EST, Height, 63.5, [...] 2019. 2Repeat EGD in 07/2020 for surveillance 32246; repeat 2019 4R shoulder 2017 5DrShabnam Choi (ENT surgeons) Social History Social History Type Response Smoking Status Current every day herve toney entered on: 12/17/15 Sex
[2022-12-14 11:07] VITALS: BP 112/64; PULSE 73; RESP 14; TEMP 37.2; O2SAT 95; BMI 22.6
--- NOTE | 2022-12-14 11:39 | AM.OFFVISNUR ---
Intake Vital Signs 12/14/22 11:07 Height 5 ft 6 in Weight 140 lb BMI 22.6 BP 112/64 Blood Pressure Location Lt brachial Position Sitting Respiration 14 Pulse 73 Pulse Source Pulse Oximeter Temp 98.9 F Temp Source Temporal Artery Scan Pulse Oximetry (%) 95 Oxygen Delivery Method Room Air Intake Visit Reasons: bee sting Allergies clavulanic acid [From AUGMENTIN] Allergy (Intermediate, Verified 12/14/22 11:10) UNKNOWN acetaminophen [From PERCOCET] Allergy (Unknown, Verified 12/14/22 11:10) GI UPSET amoxicillin [AMOXICILLIN] Allergy (Unknown, Verified 12/14/22 11:10) ANAPHYLAXIS bee pollen [BEE STINGS] Allergy (Unknown, Verified 12/14/22 11:10) ANAPHYLAXIS penicillin V Allergy (Unknown, Verified 12/14/22 11:10) SOB codeine [CODEINE] Adverse Reaction (Mild, Verified 12/14/22 11:10) RASH Codeine Sulfate Allergy (Unknown, Uncoded 11/06/21 16:42) hives Nursing Note Pt seen via walk-in with c/o having been stung by a bee. right hand swollen and says he is starting to feel it going up his arm. pt states his throat swells up from bee stings. no respiratory issues at this time. seen by md and benadryl 50mg and epinephrine 0.3mg im given as ordered. Office Meds diphenhydramine HCl Performing Provider: Josh Devi MD Administered by: Eliz Bradley RN on 12/14/22 11:28 Dose Route Admin Location Lot Number Expiration Date NDC Enterer 50 mg PO [id number] 04/29/23 65459-800-70 [facility] EpiPen Performing Provider: Josh Devi MD Administered by: Eliz Bradley RN on 12/14/22 11:00 Dose Route Admin Location Lot Number Expiration Date NDC Enterer 0.3 mg IM RIGHT OUTER THIGH [id number] 04/29/23 6521-2180-31 [facility] Coding Diagnoses Anaphylactic reaction T78.2XXA Bee sting allergy Z91.030 Assessment & Plan Assessment & Plan (1) Anaphylactic reaction: Code(s): T78.2XXA - Anaphylactic shock, unspecified, initial encounter (2) Bee sting allergy: Code(s): Z91.030 - Bee allergy status Orders: Orders AMB Diphenhydramine Adult Dose Today T78.2XXA - Anaphylactic shock, unspecified, initial encounter, Z91.030 - Bee allergy status AMB EpiPen Administration Today T78.2XXA - Anaphylactic shock, unspecified, initial encounter, Z91.030 - Bee allergy status Medications: New prednisone 40 mg (2 x 20 mg) PO DAILY 10 tabs 0RF 5 days epinephrine (EpiPen 2-Sameer) 0.3 mg (0.3 mL) IM Q4H PRN 2 ea 0RF anaphylaxis 30 days diphenhydramine HCl (Benadryl Allergy) 50 mg (2 x 25 mg) PO TID PRN 15 tabs 0RF allergy symptoms 5 days
== END 2022-12-14 12:05 | disposition home or self-care (01) ==
PROVIDERS: Visit Provider Family Medicine
DX: Z91.030 Bee allergy status (principal); T78.2XXA Anaphylactic shock, unspecified, initial encounter
CPT/HCPCS: 96372; 99213; J0171; J1200

== ENCOUNTER 2022-12-14 18:29 | Emergency (ER) | payer OTHER, SELFPAY ==
[2022-12-14 18:31] VITALS: BP 130/63; PULSE 80; RESP 16; TEMP 37.2; O2SAT 97; BMI 22.6
--- NOTE | 2022-12-14 18:31 | ED_ITS ---
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 Patient states that he had to get back to work and so is just now presenting and denies any shortness of breath, lips/tongue/facial swelling but reports he is still having pain to the distal right upper extremity with sting noted at the base of the middle phalanx. Related Data Home Medications Medication Instructions Recorded Confirmed albuterol sulfate 90 mcg/actuation 2 puff inhalation Q4-6H PRN 12/14/22 aerosol inhaler (ProAir HFA) aspirin 81 mg tablet,delayed 81 mg PO DAILY 12/14/22 release atorvastatin 80 mg tablet 80 mg PO DAILY 12/14/22 gabapentin 300 mg capsule 600 mg PO BID 12/14/22 multivitamin 1 tab PO DAILY 12/14/22 omeprazole 40 mg capsule,delayed 40 mg PO DAILY 12/14/22 release tamsulosin 0.4 mg capsule 0.8 mg PO DAILY 12/14/22 trazodone 150 mg tablet 150 mg PO BEDTIME PRN insomnia 12/14/22 Previous Rx's Medication Instructions Recorded diphenhydramine HCl 25 mg tablet 50 mg PO TID PRN allergy symptoms 12/14/22 (Benadryl Allergy) 5 days #15 tabs epinephrine 0.3 mg/0.3 mL 0.3 mg (0.3 mL) IM Q4H PRN 12/14/22 injection, auto-injector (EpiPen anaphylaxis 30 days #2 ea 2-Sameer) prednisone 20 mg tablet 40 mg PO DAILY 5 days #10 tabs 12/14/22 Allergies Allergy/AdvReac Type Severity Reaction Status Date / Time clavulanic acid Allergy Intermediate UNKNOWN Verified 12/14/22 18:31 [From AUGMENTIN] acetaminophen [From PERCOCET] Allergy Unknown GI UPSET Verified 12/14/22 18:31 amoxicillin [AMOXICILLIN] Allergy Unknown ANAPHYLAXIS Verified 12/14/22 18:31 bee pollen [BEE STINGS] Allergy Unknown ANAPHYLAXIS Verified 12/14/22 18:31 penicillin V Allergy Unknown SOB Verified 12/14/22 18:31 codeine [CODEINE] AdvReac Mild RASH Verified 12/14/22 18:31 Codeine Sulfate Allergy Unknown hives Uncoded 12/14/22 18:31 Review of Systems Review of Systems: Pertinent positives and negatives as stated in [facility]PI [facility] Past Medical History Source: nursing notes reviewed Medical History Anxiety Atherosclerosis 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 Brain concussion Chronic anemia Chronic back pain COPD (chronic obstructive pulmonary disease) Headache History of alcohol abuse History of DVT (deep vein thrombosis) Hypercholesterolemia Hypertension Nocturia Postconcussion syndrome PTSD (post-traumatic stress disorder) Right rotator cuff tear Sciatica Tobacco use Tubular adenoma of colon Surgical History History of colonoscopy History of coronary artery bypass graft History of shoulder surgery Social History Social History Household Members: None Housing: Condominium Alcohol intake: former Patient Tobacco Use Status: Current everyday Tobacco user Tobacco use type: Cigarette Cigarette Packs Per Day: 1 Advance Directives: No Advance Directives Information Provided: Yes service: No Current occupational status: employed Current occupation: [employer] Sexual orientation: Straight/Heterosexual Gender identity: Male Cognitive needs: No Hearing needs: No Vision needs: No Physical Exam ED Vital Signs: Vital Signs - 24 hr 12/14/22 18:31 Temperature 99 F Pulse Rate 80 Respiratory Rate 16 Blood Pressure 130/63 Pulse Oximetry 97 Oxygen Delivery Method Room Air BMI result Body Mass Index 22.6 VITAL SIGNS: Reviewed. GENERAL: Well developed, well nourished, in no acute distress. HEAD: Normocephalic/atraumatic EYES: PERRLA, EOMI EARS: Ext canals without abnormality NOSE: Nares patent bilateral OROPHARYNX: no oral lesions noted, posterior pharynx clear and non-erythematous without noted tonsillar enlargement/erythema/exudates, no lips/tongue/facial swelling noted NECK: Supple, no adenopathy LUNGS: Normal breath sounds, no tachypnea/rhonchi/rales/wheeze/stridor. No adventitious sounds or accessory muscle use. SpO2<97> CARDIOVASCULAR: Regular rate and rhythm without noted murmurs ABDOMEN: Soft, non-tender, non-distended with bowel sounds. MUSCULOSKELETAL: No tenderness, deformities, or effusions noted on gross inspection. EXTREMITIES: No cyanosis, clubbing or edema; RIGHT UPPER EXTREMITY: Dorsum of right hand noted to be mildly edematous with extension proximally to mid forearm. SKIN: Inspection of the skin reveals no rashes NEUROLOGIC: Alert and oriented x 4. Strength and sensation to light touch were grossly intact x 4. Course Course Course Narrative: This is an RME: Additional HPI, ROS, PE not included below will be deferred to primary provider. 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 Pt was seen at walk in clinic today where he was given benadryl 50mg PO, epi-pen 0.3mL. Here with increased swelling to right arm, difficulty swallowing and throat swelling. Vital signs stable. Plan: IV started, IV solumedrol, benadryl and pepcid ordered. Medications Administered Discontinued Medications Generic Name Dose Route Start Last Admin Trade Name Freq PRN Reason Stop Dose Admin Diphenhydramine HCl 50 mg 12/14/22 18:37 12/14/22 18:45 Diphenhydramine Hcl 50 Mg/Ml Vial IVPUSH 12/14/22 18:38 50 mg ONCE ONE Administration Famotidine 20 mg 12/14/22 18:37 12/14/22 18:45 Famotidine/Pf 20 Mg/2 Ml Vial IVPUSH 12/14/22 18:38 20 mg ONCE ONE Administration Methylprednisolone Sodium Succinate 125 mg 12/14/22 18:37 12/14/22 18:45 Methylprednisolone Sod Succ 125 Mg/2 Ml Vial IVPUSH 12/14/22 18:38 125 mg ONCE ONE Administration Medical Decision Making Medical Decision Making MDM Narrative: This is a 57-year-old male with known bee allergy and received appropriate treatments at approximate 11:30 this morning, instead of proceeding to the emergency room patient went back to work and has been asymptomatic other than swelling of the right upper extremity for 7 hours. The walk-in clinic has already sent him additional epi pens (patient states he has some but they were in his backpack which he had for gotten at home). Patient denies any further symptoms after receiving the EpiPen, he states he is already been given prednisone, Benadryl prescriptions which he has picked up. Patient received Benadryl, Pepcid as well as Solu-Medrol. At this time I feel that patient is a safe discharge to home as he has no signs or symptoms of angioedema or anaphylaxis and has already been asymptomatic for 7 hours. He was given precautionary counseling regarding the necessity of having EpiPen at hand given his job out side. Patient understands, he is requesting and ice pack to the right upper extremity which he will receive and will also apply an Juan wrap for additional symptom relief given the residual swelling. He was cautioned that he will need to continue to take the Benadryl over the next 24 hours. Differential Diagnosis Differential Diagnoses: The differential diagnosis associated with the presentation includes Anaphylaxis/angioedema: Please see the discussion above, there really is no differential diagnosis. Admission/Observation Consideration of admission/observation: Escalation of care including admission/observation considered External Record Review External record reviewed: Office record Critical Care Time Critical Care Time Critical Care Time: Yes Total Critical Care Time: 30 Attestation: I personally attest to this time spent taking care of the patient. Discharge Plan Discharge Clinical Impression: Bee sting allergy, Localized swelling of right upper extremity Patient Disposition: Home, Self-Care Instructions: Anaphylaxis (ED), Allergies (ED) Additional Instructions: 1. Recommend that you continue with recommendations from the walk-in clinic today. 2. Continue with Benadryl as well over the next 24 hours. 3. Do not hesitate to return to the emergency room if you experience any increased shortness of breath, lips/tongue/facial swelling. Prescriptions: No Action multivitamin Tablet 1 tab PO DAILY atorvastatin 80 mg tablet 80 mg PO DAILY omeprazole 40 mg capsule,delayed release(DR/EC) 40 mg PO DAILY aspirin 81 mg tablet,delayed release (DR/EC) 81 mg PO DAILY tamsulosin 0.4 mg capsule 0.8 mg PO DAILY trazodone 150 mg tablet 150 mg PO BEDTIME PRN (Reason: insomnia) gabapentin 300 mg capsule 600 mg PO BID albuterol sulfate [ProAir HFA] 90 mcg/actuation HFA aerosol inhaler 2 puff inhalation Q4-6H PRN prednisone 20 mg tablet 40 mg PO DAILY 5 Days Qty: 10 0RF epinephrine [EpiPen 2-Sameer] 0.3 mg/0.3 mL auto-injector 0.3 mg IM Q4H PRN (Reason: anaphylaxis) 30 Days Qty: 2 0RF diphenhydramine HCl [Benadryl Allergy] 25 mg tablet 50 mg PO TID PRN (Reason: allergy symptoms) 5 Days Qty: 15 0RF Referrals: Casey Suarez MD [Primary Care Provider] -
--- OUTSIDE RECORDS SUMMARY | 2022-12-14 18:43 | XMS_ITS | Continuity of Care Document ---
Author Name Unknown Organization [facility] [place] Address [address] [place] [address]- Care Team Providers Care Customer Engagement Representative Name Role Phone Daniela BROWN, Casey Jiménez Primary Care Physician Encounter [facility] Date(s): 07/05/22 - 08/04/22 [facility] Adult [address] [place] [address]- Allergies, Adverse Reactions, Alerts Substance Reaction Severity [...] en Parent Or Guardian Refuses 1Result Comment: [facility]# [id number] 2Result Comment: [facility]# [address] [id number] 3Result Comment: Pt tolerated well. [facility] #[id number] 4Location History: [place] 5Result Comment: [05/06/2017] [facility]:[id number] Medications aspirin 81 mg oral delayed release tablet 1 tablet, By Mouth, Daily, # 90 tablet, 3 Refills, Maintenance, 06/09/22 10:43:00 EST, [facility] #[id number], 167.6, cm, 06/09/22 10:24:00 EST, Height, 63.6, kg, 09/22/21 9:54:00 EDT, Dry Weight Start Date: 06/09/22 Status: Ordered atorvastatin 80 mg oral tablet 1 tablet, By Mouth, Daily at bedtime, # 90 tablet, 1 Refills, Maintenance, 03/06/22 12:15:00 EDT, [facility] #[id number], 167.6, cm, 01/08/22 8:27:00 EDT, Height, 63.6, kg, 09/22/21 9:54:00 EDT,Dry Weight Start Date: 03/06/22 Status: Ordered EpiPen 2-Sameer 0.3 mg injectable kit = 0.3 mg, Intramuscular, Once, Must go to hospital if used, # 1 each, 1 Refills, Soft Stop, 01/09/21 14:45:00 EDT, [facility] #[id number], 167.64, cm, 01/09/21 14:27:00 EDT, Height, 63.64, kg, 10/30/20 11:22:00 EDT, Dry Weight Start Date: 01/09/21 Status: Ordered gabapentin 300 mg oral capsule 2, capsule, By Mouth, 2 times a day, # 120 capsule, Refills 1, Tot. Refills 1, Maintenance, 07/06/22 9:45:00 EST, Route to Pharmacy Electronically, [facility] #[id number], 167.6, cm, 06/16/22 7:22:00 EST, Height, 63.6, [...] tablet, 3 Refills, Maintenance, 06/09/22 10:44:00 EST, [facility] #[id number], 90, 1 tablet By Mouth Daily, 167.6, cm, 06/09/22 10:24:00 EST, Height, 63.6, kg, 09/22/21 9:54:00 EDT, Dry Weight Start Date: 06/09/22 Status: Ordered Nutritional Supplements See Instructions, # 90 each, Refills 11, Tot. Refills 11, Maintenance, High Protein Ensure Use TID DX Pancreatitis, Weight Loss ICD 10 K85.90 R63.4 3 [place] 3 Vanilla Height 5'6 Weight 130lbs, 12/20/20 7:33:00 EDT, Supply Start Date: 12/20/20 Status: Ordered omeprazole 40 mg oral enteric coated capsule 1 capsule, By Mouth, Daily, # 30 capsule, 2 Refills, Maintenance, 05/29/22 17:58:00 EST, [facility] #[id number], 167.6, cm, 03/19/22 9:24:00 EDT, Height, 63.6, kg, 09/22/21 9:54:00 EDT, Dry Weight Start Date: 05/29/22 Status: Ordered PEG-3350 with Electrolytes (Eqv-GoLYTELY) oral powder for reconstitution See Instructions, 1 glass every 15-30 minutes until finished, # 4,000 mL, 0 Refills, Maintenance, 08/26/20 16:28:00 EDT, [facility] #[id number], Partial fill upon patient request if the prescription is for a schedule II opioid drug., 1 glass ever... Start Date: 08/26/20 Status: Ordered ProAir HFA 90 mcg/inh inhalation aerosol with adapter 2, puffs, Inhalation, Every 6 hours, PRN, # 8.5 Gm, Refills 5, Tot. Refills 5, Maintenance, 07/04/20 8:18:00 EST, Aerosol, Route to Pharmacy Electronically, [id number], [facility] #[id number], 168, cm, 06/14/20 10:38:00... Start Date: 07/04/20 [...] 04/07/22 13:27:00 EST, Route to Pharmacy Electronically, [facility] #[id number], 167.6, cm, 03/19/22 9:24:00 EDT, Height, 63.6,kg, [...] 90 tablet, 0 Refills, Maintenance,07/07/22 14:49:00 EST, [facility] #[id number], 167.6, cm, 06/16/22 7:22:00 EST, Height, 63.6, [...] 2019. 2Repeat EGD in 07/2020 for surveillance 16604; repeat 2019 4R shoulder 2018 5Dr. Jimbo (ENT surgeons) Social History Social History Type Response Smoking Status 10 or more cigarette s (1/2 pack or more)/day in last 30 days entered on: 03/13/22 Sex Patient Care team information Care Team Personnel Name: April Landrum RN Position: [facility] RN Member Role: Primary Care Nurse Name: Talib Jensen RN Position: [facility] RN Member Role: Primary Care Nurse Name: Casey Suarez MD Position: [facility] Primary Care Physician Member Role: PCP Address: Address: [address] [place] [id number] Name: Frida Urban RN Position: [facility] RN Member Role: Primary Care Nurse Name: Betty Rodriguez RN Position: [facility] RN Member Role: Primary Care Nurse Name: Damon Elaine RN Position: [facility] SN RN Member Role: Primary Care Nurse Name: Neelima Manrique RN Position: [facility] RN Member Role: Primary Care Nurse Name: Maddison Lindquist RN Position: [facility] SN RN Member Role: Primary Care Nurse Name: Mahesh Castillo RN Position: [facility] RN Member Role: Primary Care Nurse Name: Desiree Caballero RN Position: [facility] Principal Developer Member Role: Primary Care Nurse Name: Melvina Palacios RN Position: [facility] RN Member Role: Primary Care Nurse Name: Diandra Méndez RN Position: [facility] RN Member Role: Primary Care Nurse Care Team Related Persons Name: LAYLA NARAYANAN Address: home [address] [place] [id number]
[2022-12-14] MEDS: methylPREDNISolone Sod Succ 125 MG/2 ML VIAL IVPUSH (18:45)
[2022-12-14] MEDS: Famotidine/PF 20 MG/2 ML VIAL IVPUSH (18:45)
[2022-12-14] MEDS: diphenhydrAMINE HCL 50 MG/ML VIAL IVPUSH (18:45)
--- NOTE | 2022-12-14 19:46 | PC.NURSE ---
Juan wrap and ice applied to the right FA. Pt tolerated well. Discharge instructions reviewed with pt. Pt verbalizes understanding. Ambulatory with steady gait at discharge.
== END 2022-12-14 19:47 | disposition home or self-care (01) ==
PROVIDERS: Emergency Provider Student in an Organized Health Care Education/Training Program; PCP Internal Medicine
DX: T63.441A Toxic effect of venom of bees, accidental (unintentional), initial encounter (principal); M79.89 Other specified soft tissue disorders; Y92.89 Other specified places as the place of occurrence of the external cause; Z91.030 Bee allergy status
CPT/HCPCS: 96374; 96375; 99283; 99284; J1200; J2930

== ENCOUNTER 2023-09-15 17:11 | Emergency (ER) | payer OTHER, SELFPAY ==
[2023-09-15 17:25] VITALS: BP 162/80; PULSE 73; RESP 18; TEMP 36.8; O2SAT 94; BMI 22.6
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
--- OUTSIDE RECORDS SUMMARY | 2023-09-15 18:40 | XMS_ITS | Continuity of Care Document ---
Author Organization [facility] [place] Address [address] [place] [address]- Care Team Providers Care Ham Passer Name Role Phone Casey Suarez MD Primary Care Physician Encounter [facility] Date(s): 06/10/23 - 07/10/23 [facility] Gustavo Montero Adult [address] [place] [address]- Attending Physician: Admtr, Ar8 Admitting Physician: Admtr, Ar8 Referring Physician: Admtr, Ar8 Allergies, Adverse Reactions, Alerts Substance Reaction Severity Status amoxicillin heart racing Active acetaminophen-codeine ANAPHYLAXSIS Active Augmentin swelling of throat, diff breath, rash Active Bee Stings anaphylactic Active Immunizations Given and Recorded Vaccine Date Status Refusal Reason influenza virus vaccine, inactivated 1 04/05/23 Gi nini influenza virus vaccine, inactivated 2 03/13/22 Gi nini influenza virus vaccine, inactivated 3 03/20/21 Gi nini influenza virus vaccine, inactivated 04/22/20 Give n influenza virus vaccine, inactivated 4 05/26/19 Gi nini influenza virus vaccine, inactivated 03/21/18 Give n influenza virus vaccine, inactivated 03/06/17 Wong rded influenza virus vaccine, inactivated 5 03/10/16 Re corded influenza virus vaccine, inactivated 05/08/15 Wong rded pneumococcal 20-valent conjugate vaccine 6 10/15/22 Given SARS-CoV-2 (COVID-19) mRNA BNT-162b2 vac 05/12/21 Given SARS-CoV-2 (COVID-19) mRNA BNT-162b2 vac 09/21/20 Recorded SARS-CoV-2 (COVID-19) mRNA BNT-162b2 vac 08/29/20 Recorded pneumococcal 23-valent vaccine 7 05/06/17 Given pneumococcal 23-valent vaccine 04/21/16 Recorded pneumococcal 23-valent vaccine 04/20/16 Recorded pneumococcal 23-valent vaccine 12/18/15 Given tetanus/diphtheria/pertussis, acel(Tdap) 04/29/16 Given tetanus-diphtheria toxoids (Td) 01/03/14 Recorded 1Result Comment: [id number] Checklist done 2Result Comment: [facility]# [id number] 3Result Comment: [facility]# [address] [id number] 4Result Comment: Pt tolerated well. [facility] #[id number] 5Location History: [facility] 6Result Comment: [facility]:[id number] 7Result Comment: [05/06/2017] [facility]:[id number] Medications aspirin 81 mg oral delayed release tablet 1 tablet, By Mouth, Daily, # 90 tablet, 3 Refills, Maintenance, 06/25/23 16:20:00 EST, [facility] #[id number], 168, cm, 06/11/23 11:00:00 EST, Height, 59, kg, 06/08/23 16:39:00 EST, Dry Weight Start Date: 06/25/23 Status: Ordered atorvastatin 80 mg oral tablet 1 tablet, By Mouth, Daily at bedtime, # 90 tablet, 0 Refills, Maintenance, 06/21/23 8:07:00 EST, [facility] #[id number], 168, cm, 06/11/23 11:00:00 EST, Height, 59, kg, 06/08/23 16:39:00 EST, Dry Weight Start Date: 06/21/23 Status: Ordered EpiPen 2-Sameer 0.3 mg injectable kit = 0.3 mg, Intramuscular, Once, Must go to hospital if used, # 1 each, 1 Refills, Soft Stop, 01/09/21 14:45:00 EDT, [facility] #[id number], 167.64, cm, 01/09/21 14:27:00 EDT, Height, 63.64, kg, 10/30/20 11:22:00 EDT, Dry Weight Start Date: 01/09/21 Status: Ordered gabapentin 300 mg oral capsule 2, capsule, By Mouth, 3 times a day, # 540 capsule, Refills 3, Tot. Refills 3, Maintenance, 04/01/23 11:33:00 EDT, Route to Pharmacy Electronically, [facility] #[id number], 167.6, cm, 04/01/23 11:20:00 EDT, Height, 63.6, kg, 09/22/21 9:54:00 EDT,... Start Date: 04/01/23 Stop Date: 03/26/24 Status: Ordered multivitamin Multiple Vitamins oral tablet 1 tablet, By Mouth, Daily, # 90 tablet, 3 Refills, Maintenance, 06/09/22 10:44:00 EST, [facility] #[id number], 90, 1 tablet By Mouth Daily, 167.6, cm, 06/09/22 10:24:00 EST, Height, 63.6, kg, 09/22/21 9:54:00 EDT, Dry Weight Start Date: 06/09/22 Status: Ordered Nutritional Supplements See Instructions, # 90 each, Refills 11, Tot. Refills 11, Maintenance, High Protein Ensure Use TID DX Pancreatitis, Weight Loss ICD 10 K85.90 R63.4 3 [place] 3 Vanilla Height 5'6 Weight 130lbs, 04/01/23 11:39:00 EDT, Supply Start Date: 04/01/23 Status: Ordered omeprazole 40 mg oral enteric coated capsule 1 capsule, By Mouth, Daily, # 30 capsule, 2 Refills, Maintenance, 06/11/23 18:48:00 EST, [facility] #[id number], 168, cm, 06/11/23 11:00:00 EST, Height, 59, kg, 06/08/23 16:39:00 EST, Dry Weight Start Date: 06/11/23 Status: Ordered predniSONE 20 mg oral tablet See Instructions, 2 tablets daily for 5 days and then 1 tablet daily for 5 days, # 15 tablet, 0 Refills, Maintenance, 06/10/23 11:26:00 EST, [facility] #[id number], Partial fill upon patient request if the prescription is for a schedule II opioid... Start Date: 06/10/23 Status: Ordered ProAir HFA 90 mcg/inh inhalation aerosol with adapter 2, puffs, Inhalation, Every 6 hours, PRN, # 8.5 Gm, Refills 5, Tot. Refills 5, Maintenance, 07/04/20 8:18:00 EST, Aerosol, Route to Pharmacy Electronically, [id number], [facility] #[id number], 168, cm, 06/14/20 10:38:00... Start Date: 07/04/20 Status: Ordered tamsulosin 0.4 mg oral capsule 0.8 mg, 2, capsule, By Mouth, Daily, # 180 capsule, Refills 3, Tot. Refills 3, Maintenance, 10/15/22 9:26:00 EDT, Route to Pharmacy Electronically, [facility] #[id number], 167.6, cm, 10/15/22 9:15:00 EDT, Height, 63.6, kg, 09/22/21 9:54:00 EDT, D... Start Date: 10/15/22 Stop Date: 10/10/23 Status: Ordered traZODone 150 mg oral tablet 1 tablet, By Mouth, Daily at bedtime, PRN NEEDED FOR SLEEP, # 90 tablet, 1 Refills, Maintenance,03/23/23 8:56:00 EDT, [facility] #[id number], 167.6, cm, 03/22/23 8:23:00 EDT, Height, 63.6, kg, 09/22/21 9:54:00 EDT, Dry Weight Start Date: 03/23/23 Status: Ordered Problem List Condition Confirmation Course Effective Dates Status Health Status Informant Abscess of buttock Confirmed Active Necrotizing pancreatitis Confirmed Active Anxiety Confirmed Active Atherosclerosis 1 Confirmed Active Atherosclerosis of left carotid artery Confirmed Active 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 2 Confirmed 02/02/17 Active Cerebrovascular disease Confirmed Active Change in multiple pigmented skin lesions Confirmed Active Chronic anemia Confirmed Active Chronic back pain Confirmed Active Chronic obstructive pulmonary disease (COPD) Confirmed Active Brain concussion Confirmed Active CAD (coronary artery disease) Confirmed Active Difficulty sleeping Confirmed Active Right rotator cuff tear Confirmed Active History of DVT (deep vein thrombosis) Confirmed Active History of alcohol abuse Confirmed Active History of coronary artery bypass graft Confirmed Active History of shoulder surgery 3 Confirmed Active Hypercholesterolemia Confirmed Active Cognitive impairment Confirmed Active Insomnia Confirmed Active Leukoplakia of oral mucosa 4 Confirmed Active Low back pain Confirmed Active Anterior neck pain Confirmed Active Nocturia Confirmed Active Paresthesias Confirmed Active Colon polyps Confirmed Active Postconcussion syndrome Confirmed Active PTSD (post-traumatic stress disorder) Confirmed Active Depression, major, recurrent, in remission Confirmed Active Sciatica Confirmed Active Shoulder pain, right Confirmed Active Tobacco use Confirmed Active Tubular adenoma of colon Confirmed 02/02/17 Active 1Atherosclerosis by lumbar spine x-ray 2019. 2Repeat EGD in 07/2020 for surveillance 3R shoulder 2018 4Dr. Jimbo (ENT surgeons) Social History Social History Type Response Smoking Status 10 or more cigarette s (1/2 pack or more)/day in last 30 days entered on: 03/13/22 Sex Laboratory * Event Display: Non Lab Results Authored Date: Radiology * Event Display: CT Scan Neck, Non- Authored Date: * Event Display: MRI Spine, Non- Authored Date: * Event Display: X-Ray Hand/Wrist Authored Date: * Event Display: CT Scan Head, Non- Authored Date: XR Skull Views * Event Display: X-Ray Head Authored Date: CT Head * Event Display: CT Scan Head Authored Date: MR Spine * Event Display: MRI Spine Authored Date: Patient Care team information Care Team Personnel Name: April Landrum RN Position: [facility] RN Member Role: Primary Care Nurse Name: Casey Suarez MD Position: [facility] Physician - Primary Care Member Role: PCP Address: Address: [address] [place] [address] [id number] Name: Betty Rodriguez RN Position: [facility] RN Member Role: Primary Care Nurse Name: Damon Elaine RN Position: [facility] RN Member Role: Primary Care Nurse Name: Neelima Manrique RN Position: [facility] RN Member Role: Primary Care Nurse Name: Maddison Lindquist RN Position: [facility] RN Member Role: Primary Care Nurse Name: Mahesh Castillo RN Position: [facility] RN Member Role: Primary Care Nurse Name: Desiree Caballero RN Position: [facility] Environmental Services Tech Member Role: Primary Care Nurse Name: Melvina Palacios RN Position: [facility] RN Member Role: Primary Care Nurse Name: Diandra Méndez RN Position: [facility] RN Member Role: Primary Care Nurse Care Team Related Persons Name: LAYLA NARAYANAN Address: [address] [address]
--- OUTSIDE RECORDS SUMMARY | 2023-09-15 18:40 | XMS_ITS | Continuity of Care Document ---
Author Organization [facility] [place] Address [address] [place] [address]- Care Team Providers Care Fast Food Restaurant Manager Name Role Phone Casey Suarez MD Primary Care Physician [phone] Encounter [facility] Date(s): 07/23/23 - 08/22/23 [facility] Adult [address] [place] [address]- Allergies, Adverse Reactions, Alerts Substance Reaction Severity [...] tetanus-diphtheria toxoids (Td) 01/03/14 Recorded 1Result Comment: [id number] Checklist done 2Result Comment: [facility]# [id number] 3Result Comment: [facility]# ON [address] [id number] 4Result Comment: Pt tolerated well. [facility] #[id number] 5Location History: [facility] 6Result Comment: [facility]:[id number] 7Result Comment: [05/06/2017] [facility]:[id number] Medications albuterol 0.083% inhalation solution 3 mL = 2.5 mg, Inhalation, Every 6 hours, dx-copd/asthma, # 120 each, 11 Refills, Maintenance, 07/26/23 8:52:00 EST, Solution, [facility] #[id number], Partial fill upon patient request if the prescription is for a schedule II opioid drug., 168, c... Start Date: 07/26/23 Status: Ordered aspirin 81 mg oral delayed release tablet 1 tablet, By Mouth, Daily, # 90 tablet, 3 Refills, Maintenance, 06/25/23 16:20:00 EST, [facility] #[id number], 168, cm, 06/11/23 11:00:00 EST, Height, 59, kg, 06/08/23 16:39:00 EST, Dry Weight Start Date: 06/25/23 Status: Ordered atorvastatin 80 mg oral tablet 1 tablet, By Mouth, Daily at bedtime, # 90 tablet, 0 Refills, Maintenance, 06/21/23 8:07:00 EST, [facility] #[id number], 168, cm, 06/11/23 11:00:00 EST, Height, 59, kg, 06/08/23 16:39:00 EST, Dry Weight Start Date: 06/21/23 Status: Ordered Daily Yoel oral tablet 1 tablet, By Mouth, Daily, # 90 tablet, 1 Refills, Maintenance, 07/28/23 19:23:00 EST, [facility] #[id number], 90, TAKE 1 TABLET BY MOUTH DAILY, 168, cm, 06/11/23 11:00:00 EST, Height, 59, kg, 06/08/23 16:39:00 EST, Dry Weight Start Date: 07/28/23 Status: Ordered EpiPen 2-Sameer 0.3 mg injectable kit = 0.3 mg, Intramuscular, Once, Must go to hospital if used, # 1 each, 1 Refills, Soft Stop, 01/09/21 14:45:00 EDT, [facility] #[id number], 167.64, cm, 01/09/21 14:27:00 EDT, Height, 63.64, kg, 10/30/20 11:22:00 EDT, Dry Weight Start Date: 01/09/21 Status: Ordered gabapentin 300 mg oral capsule 2, capsule, By Mouth, 3 times a day, # 540 capsule, Refills 3, Tot. Refills 3, Maintenance, 04/01/23 11:33:00 EDT, Route to Pharmacy Electronically, [facility] #[id number], 167.6, cm, 04/01/23 11:20:00 EDT, Height, 63.6, kg, 09/22/21 9:54:00 EDT,... Start Date: 04/01/23 Stop Date: 03/26/24 Status: Ordered mouthpiece and tubing for nebulizer mouthpiece and tubing for nebulizer, See Instructions, # 1 each, Refills 11, Tot. Refills 11, Maintenance, q 6 hrs, 08/02/23 7:04:00 EST, Supply, 168, cm, 06/11/23 11:00:00 EST, Height, 59, kg, 06/08/23 16:39:00 EST, Dry Weight Start Date: 08/02/23 Status: Ordered Nutritional Supplements See Instructions, # 90 each, Refills 11, Tot. Refills 11, Maintenance, High Protein Ensure Use TID DX Pancreatitis, Weight Loss ICD 10 K85.90 R63.4 3 [place] 3 Vanilla Height 5'6 Weight 130lbs, 04/01/23 11:39:00 EDT, Supply Start Date: 04/01/23 Status: Ordered omeprazole 40 mg oral enteric coated capsule 1 capsule, By Mouth, Daily, # 30 capsule, 2 Refills, Maintenance, 06/11/23 18:48:00 EST, [facility] #[id number], 168, cm, 06/11/23 11:00:00 EST, Height, 59, kg, 06/08/23 16:39:00 EST, Dry Weight Start Date: 06/11/23 Status: Ordered predniSONE 20 mg oral tablet See Instructions, 2 tablets daily for 5 days and then 1 tablet daily for 5 days, # 15 tablet, 0 Refills, Maintenance, 06/10/23 11:26:00 EST, [facility] #[id number], Partial fill upon patient request if the prescription is for a schedule II opioid... Start Date: 06/10/23 Status: Ordered ProAir HFA 90 mcg/inh inhalation aerosol with adapter 2, puffs, Inhalation, Every 6 hours, PRN, # 8.5 Gm, Refills 11, Tot. Refills 11, Maintenance, 08/18/23 11:40:00 EDT, Aerosol, Route to Pharmacy Electronically, [id number], [facility] #[id number], 168, cm, 06/11/23 11:00:... Start Date: 08/18/23 Status: Ordered tamsulosin 0.4 mg oral capsule 0.8 mg, 2, capsule, By Mouth, Daily, # 180 capsule, Refills 3, Tot. Refills 3, Maintenance, 10/15/22 9:26:00 EDT, Route to Pharmacy Electronically, [facility] #[id number], 167.6, cm, 10/15/22 9:15:00 EDT, Height, 63.6, kg, 09/22/21 9:54:00 EDT, D... Start Date: 10/15/22 Stop Date: 10/10/23 Status: Ordered traZODone 150 mg oral tablet 1 tablet, By Mouth, Daily at bedtime, PRN NEEDED FOR SLEEP, # 90 tablet, 1 Refills, Maintenance,03/23/23 8:56:00 EDT, [facility] #[id number], 167.6, cm, 03/22/23 8:23:00 EDT, Height, 63.6, [...] Primary Care Member Role: PCP Address: Address: [address] [place] [id number] Name: Betty Rodriguez RN Position: [facility] RN Member Role: Primary Care Nurse Name: Damon Elaine RN Position: [facility] RN Member Role: Primary Care Nurse Name: Neelima Manrique RN Position: [facility] RN Member Role: Primary Care Nurse Name: Maddison Lindquist RN Position: [facility] RN Member Role: Primary Care Nurse Name: Mahesh Castillo RN Position: [facility] RN Member Role: Primary Care Nurse Name: Desiree Caballero RN Position: [facility] Dermatological Surgeon Member Role: Primary Care Nurse Name: Melvina Palacios RN Position: [facility] RN Member Role: Primary Care Nurse Name: Diandra Méndez RN Position: [facility] RN Member Role: Primary Care Nurse Care Team Related Persons Name: LAYLA NARAYANAN Address: [address] [address]
--- OUTSIDE RECORDS SUMMARY | 2023-09-15 18:40 | XMS_ITS | Continuity of Care Document ---
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 Role Phone Casey Suarez MD Primary Care Physician Encounter [facility] Date(s): 06/10/23 - 06/17/23 [facility] Adult [address] [place] [address]- Encounter Diagnosis SOB (shortness of breath)(Discharge Diagnosis) - 06/10/23 COPD exacerbation(Discharge Diagnosis) - 06/10/23 Attending Physician: Not on Staff, Attending MD [...] tetanus-diphtheria toxoids (Td) 01/03/14 Recorded 1Result Comment: [id number] Checklist done 2Result Comment: [facility]# [id number] 3Result Comment: [facility]# [address] [phone] 4Result Comment: Pt tolerated well. [facility] #[id number] 5Location History: [facility] 6Result Comment: [facility]:5717-2089-85 7Result Comment: [05/06/2017] [facility]:8312-1005-03 Medications aspirin 81 mg oral delayed release tablet 1 tablet, By Mouth, Daily, # 90 tablet, 3 Refills, Maintenance, 06/09/22 10:43:00 EST, [facility] #[id number], 167.6, cm, 06/09/22 10:24:00 EST, Height, 63.6, kg, 09/22/21 9:54:00 EDT, Dry Weight Start Date: 06/09/22 Status: Ordered atorvastatin 80 mg oral tablet 1 tablet, By Mouth, Daily at bedtime, # 90 tablet, 0 Refills, Maintenance, 12/14/22 10:04:00 EDT, [facility] #[id number], 167.6, cm, 10/22/22 8:47:00 EDT, Height, 63.6, kg, 09/22/21 9:54:00 EDT,Dry Weight Start Date: 12/14/22 Status: Ordered doxycycline hyclate 100 mg oral tablet 1 tablet = 100 mg, By Mouth, 2 times a day, for 10 days, with fluids, # 20 tablet, 0 Refills, Acute06/20/23 11:26:00 EST, 06/10/23 11:26:00 EST, Tablet, [facility] #[id number], Partial fill upon patient request if the prescription is for a sched... Start Date: 06/10/23 Stop Date: 06/20/23 Status: Ordered EpiPen 2-Sameer 0.3 mg injectable kit = 0.3 mg, Intramuscular, Once, Must go to hospital if used, # 1 each, 1 Refills, Soft Stop, 01/09/21 14:45:00 EDT, [facility] #[id number], 167.64, cm, 01/09/21 14:27:00 EDT, Height, 63.64, kg, 10/30/20 11:22:00 EDT, Dry Weight Start Date: 01/09/21 Status: Ordered gabapentin 300 mg oral capsule 2, capsule, By Mouth, 3 times a day, # 540 capsule, Refills 3, Tot. Refills 3, Maintenance, 04/01/23 11:33:00 EDT, Route to Pharmacy Electronically, [facility] #[id number], 167.6, cm, 04/01/23 11:20:00 EDT, Height, 63.6, kg, 09/22/21 9:54:00 EDT,... Start Date: 04/01/23 Stop Date: 03/26/24 Status: Ordered multivitamin Multiple Vitamins oral tablet 1 tablet, By Mouth, Daily, # 90 tablet, 3 Refills, Maintenance, 06/09/22 10:44:00 EST, [facility] #[id number], 90, 1 tablet By Mouth Daily, 167.6, cm, 06/09/22 10:24:00 EST, Height, 63.6, kg, 09/22/21 9:54:00 EDT, Dry Weight Start Date: 06/09/22 Status: Ordered Nutritional Supplements See Instructions, # 90 each, Refills 11, Tot. Refills 11, Maintenance, High Protein Ensure Use TID DX Pancreatitis, Weight Loss ICD 10 K85.90 R63.4 3 [place] 3 Vanilla Height 5'6 Weight 130lbs, 04/01/23 11:39:00 EDT, Supply Start Date: 04/01/23 Status: Ordered omeprazole 40 mg oral enteric coated capsule 1 capsule, By Mouth, Daily, # 30 capsule, 2 Refills, Maintenance, 06/11/23 18:48:00 EST, [facility] #[id number], 168, cm, 06/11/23 11:00:00 EST, Height, 59, kg, 06/08/23 16:39:00 EST, Dry Weight Start Date: 06/11/23 Status: Ordered predniSONE 20 mg oral tablet See Instructions, 2 tablets daily for 5 days and then 1 tablet daily for 5 days, # 15 tablet, 0 Refills, Maintenance, 06/10/23 11:26:00 EST, [facility] #[id number], Partial fill upon patient request if the prescription is for a schedule II opioid... Start Date: 06/10/23 Status: Ordered ProAir HFA 90 mcg/inh inhalation aerosol with adapter 2, puffs, Inhalation, Every 6 hours, PRN, # 8.5 Gm, Refills 5, Tot. Refills 5, Maintenance, 07/04/20 8:18:00 EST, Aerosol, Route to Pharmacy Electronically, [id number], [facility] #[id number], 168, cm, 06/14/20 10:38:00... Start Date: 07/04/20 Status: Ordered tamsulosin 0.4 mg oral capsule 0.8 mg, 2, capsule, By Mouth, Daily, # 180 capsule, Refills 3, Tot. Refills 3, Maintenance, 10/15/22 9:26:00 EDT, Route to Pharmacy Electronically, [facility] #[id number], 167.6, cm, 10/15/22 9:15:00 EDT, Height, 63.6, kg, 09/22/21 9:54:00 EDT, D... Start Date: 10/15/22 Stop Date: 10/10/23 Status: Ordered traZODone 150 mg oral tablet 1 tablet, By Mouth, Daily at bedtime, PRN NEEDED FOR SLEEP, # 90 tablet, 1 Refills, Maintenance,03/23/23 8:56:00 EDT, [facility] #[id number], 167.6, cm, 03/22/23 8:23:00 EDT, Height, 63.6, [...] 3R shoulder 2018 4Dr. Jimbo (ENT surgeons) Diagnosis Diagnosis Type Effective Dates Health Status Clinical Service Informant SOB (shortness of breath) Discharge Diagnosis 06/10/23 COPD exacerbation Discharge Diagnosis 06/10/23 Vital Signs Most recent to oldest [Reference Range]: 1 2 Height 168 cm (06/11/23 11:00 AM) 168 cm (06/10/23 11:00 AM) Weight 64.5 kg (06/11/23 11:00 AM) 64.5 kg (06/10/23 11:00 AM) Oxygen Saturation [94-100 %] 98 % (06/10/23 11:00 AM) Pulse Rate [55-90 bpm] 56 bpm (06/10/23 11:00 AM) Body Mass Index [18.5-24.99 kg/m2] 22.85 kg/m2 (06/10/23 11:00 AM) Blood Pressure [90-138/55-84 mm Hg] 96/6 0mm Hg (06/10/23 11:00 AM) Respiratory Rate [16-30 br/min] 12 br/mi n *L* (06/10/23 11:00 AM) Temperature [96.8-100.4 DegF] 97.6 DegF (06/10/23 11:00 AM) Mode of Delivery (Oxygen) Room air (06/10/23 11:00 AM) Blood pressure sites Arm, left (06/10/23 11:00 AM) Temperature Route Oral (06/10/23 11:00 AM) Weight Obtained Via Standing scale (06/10/23 11:00 AM) Social History Social History Type Response Smoking Status 10 or more cigarette s (1/2 pack or more)/day in last 30 days entered on: 03/13/22 Sex EKG study * Event Display: ECG 12-Lead Authored Date: Please click on pdf link to open report * Event Display: ECG 12-Lead Authored Date: Ventricular Rate: 55 BPM Atrial Rate: 55 BPM P-R Interval: 162 ms QRS Duration: 92 ms Q-T Interval: 412 ms QTC Calculation(Bazett): 394 ms P Rickreall: 82 degrees R Rickreall: 63 degrees T Rickreall: 34 degrees Sinus bradycardia Otherwise normal ECG artifact in V2 When compared with ECG of 08-JUN-2023 16:51, No significant change was found Confirmed by VIBHA CAMPBELL ([id number]) on 06/11/2023 8:18:43 PM [place]: VIBHA CAMPBELL Patient Care team information Care Team Personnel Name: April Landrum RN Position: [facility] RN Member Role: Primary Care Nurse Name: Casey Suarez MD Position: [facility] Physician - Primary Care Member Role: PCP Address: Address: [address] [place] [id number] Name: Betty Rodriguez RN Position: [facility] RN Member Role: Primary Care Nurse Name: Damon Elaine RN Position: [facility] SN RN Member Role: Primary Care Nurse Name: Neelima Manrique RN Position: [facility] RN Member Role: Primary Care Nurse Name: Maddison Lindquist RN Position: [facility] RN Member Role: Primary Care Nurse Name: Mahesh Castillo RN Position: [facility] RN Member Role: Primary Care Nurse Name: Desiree Caballero RN Position: [facility] Hospital Dentistry Teacher Member Role: Primary Care Nurse Name: Melvina Palacios RN Position: [facility] RN Member Role: Primary Care Nurse Name: Diandra Méndez RN Position: [facility] RN Member Role: Primary Care Nurse Care Team Related Persons Name: LAYLA NARAYANAN Address: [address] [address]
--- OUTSIDE RECORDS SUMMARY | 2023-09-15 18:41 | XMS_ITS | Continuity of Care Document ---
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 [facility] #14900-897-92 5Location History: [facility] 6Result Comment: [facility]:[id number] 7Result Comment: [05/06/2017] [facility]:2434-8882-97 Medications aspirin 81 mg oral delayed release tablet 1 tablet, By Mouth, Daily, # 90 tablet, 3 Refills, Maintenance, 06/09/22 10:43:00 EST, [facility] #[id number], 167.6, cm, 06/09/22 10:24:00 EST, Height, 63.6, kg, 09/22/21 9:54:00 EDT, Dry Weight Start Date: 06/09/22 Status: Ordered atorvastatin 80 mg oral tablet 1 tablet, By Mouth, Daily at bedtime, # 90 tablet, 0 Refills, Maintenance, 12/14/22 10:04:00 EDT, [facility] #[id number], 167.6, cm, 10/22/22 8:47:00 EDT, Height, 63.6, kg, 09/22/21 9:54:00 EDT,Dry Weight Start Date: 12/14/22 Status: Ordered EpiPen 2-Sameer 0.3 mg injectable kit = 0.3 mg, Intramuscular, Once, Must go to hospital if used, # 1 each, 1 Refills, Soft Stop, 01/09/21 14:45:00 EDT, [facility] #[id number], 167.64, cm, 01/09/21 14:27:00 EDT, Height, 63.64, kg, 10/30/20 11:22:00 EDT, Dry Weight Start Date: 01/09/21 Status: Ordered gabapentin 300 mg oral capsule 2, capsule, By Mouth, 3 times a day, # 540 capsule, Refills 3, Tot. Refills 3, Maintenance, 04/01/23 11:33:00 EDT, Route to Pharmacy Electronically, [facility] #[id number], 167.6, cm, 04/01/23 11:20:00 EDT, Height, 63.6, kg, 09/22/21 9:54:00 EDT,... Start Date: 04/01/23 Stop Date: 03/26/24 Status: Ordered multivitamin Multiple Vitamins oral tablet 1 tablet, By Mouth, Daily, # 90 tablet, 3 Refills, Maintenance, 06/09/22 10:44:00 EST, [facility] #[id number], 90, 1 tablet By Mouth Daily, 167.6, cm, 06/09/22 10:24:00 EST, Height, 63.6, kg, 09/22/21 9:54:00 EDT, Dry Weight Start Date: 06/09/22 Status: Ordered Nutritional Supplements See Instructions, # 90 each, Refills 11, Tot. Refills 11, Maintenance, High Protein Ensure Use TID DX Pancreatitis, Weight Loss ICD 10 K85.90 R63.4 3 [place] 3 Vanilla Height 5'6 Weight 130lbs, 04/01/23 11:39:00 EDT, Supply Start Date: 04/01/23 Status: Ordered omeprazole 40 mg oral enteric coated capsule 1 capsule, By Mouth, Daily, # 30 capsule, 5 Refills, Maintenance, 12/02/22 11:21:00 EDT, [facility] #[id number], 167.6, cm, 10/22/22 8:47:00 EDT, Height, 63.6, kg, 09/22/21 9:54:00 EDT, Dry Weight Start Date: 12/02/22 Status: Ordered ProAir HFA 90 mcg/inh inhalation aerosol with adapter 2, puffs, Inhalation, Every 6 hours, PRN, # 8.5 Gm, Refills 5, Tot. Refills 5, Maintenance, 07/04/20 8:18:00 EST, Aerosol, Route to Pharmacy Electronically, [id number], [facility] #[id number], 168, cm, 06/14/20 10:38:00... Start Date: 07/04/20 Status: Ordered tamsulosin 0.4 mg oral capsule 0.8 mg, 2, capsule, By Mouth, Daily, # 180 capsule, Refills 3, Tot. Refills 3, Maintenance, 10/15/22 9:26:00 EDT, Route to Pharmacy Electronically, [facility] #[id number], 167.6, cm, 10/15/22 9:15:00 EDT, Height, 63.6, kg, 09/22/21 9:54:00 EDT, D... Start Date: 10/15/22 Stop Date: 10/10/23 Status: Ordered traZODone 150 mg oral tablet 1 tablet, By Mouth, Daily at bedtime, PRN NEEDED FOR SLEEP, # 90 tablet, 1 Refills, Maintenance,03/23/23 8:56:00 EDT, [facility] #[id number], 167.6, cm, 03/22/23 8:23:00 EDT, Height, 63.6, [...] 3R shoulder 2018 4Dr. Jimbo (ENT surgeons) Results Radiology Reports * Exam Date Time Procedure Performing Provider Status 06/08/23 6:30 PM Chest 2 Views Frontal and Lat Jasper Mckeon; Auth (Verified) Notes: (Chest 2 Views Frontal and Lat) Reason For Exam: Chest Pain;Other: RESULT: Chest 2 Views Frontal and Lat Chest 2 Views Frontal and Lat INDICATION/CLINICAL QUESTION: Chest pain. Dyspnea. History coronary bypass surgery. TECHNIQUE: Frontal and lateral views of the chest. COMPARISON: 11/12/2020. FINDINGS: LINES AND TUBES: None. LUNGS AND PLEURA: RIGHT CHEST: The right lung is clear and there is no right effusion. No pneumothorax. LEFT CHEST: The left lung is clear and there is no left effusion. No pneumothorax. HEART, MEDIASTINUM AND CLEMENT: The heart is of normal size. The mediastinum and clement are normal. BONES AND SOFT TISSUES: No acute bony abnormality. IMPRESSION: 1. No active disease in chest. WSN: [id number] Ordering Physician: Amilcar Burrell Dictated By: Juan Francisco Plunkett MD Dictated Date/Time: 06/08/23 6:34 pm Reviewed By: Juan Francisco Plunkett MD Signed By: Juan Francisco Plunkett MD Signed Date/Time: 06/08/23 6:34 pm Transcribed By: CLAU Transcribed Date/Time: 06/08/23 6:32 pm Vital Signs Most recent to oldest [Reference Range]: 1 2 Height 168 cm (06/08/23 4:39 PM) Weight 59 kg (06/08/23 4:39 PM) Oxygen Saturation [94-100 %] 99 % (06/08/23 4:39 PM) 95 % (06/08/23 4:31 PM) Pulse Rate [55-90 bpm] 65 bpm (06/08/23 4:39 PM) 51 bpm *L* (06/08/23 4:31 PM) Blood Pressure [90-138/55-84 mm Hg] 123/ 65mm Hg (06/08/23 4:39 PM) Respiratory Rate [16-30 br/min] 18 br/mi n (06/08/23 4:39 PM) 18 br/min (06/08/23 4:31 PM) Temperature [96.8-100.4 DegF] 98.2 DegF (06/08/23 4:39 PM) Mode of Delivery (Oxygen) Room air (06/08/23 4:39 PM) Room air (06/08/23 4:31 PM) Blood pressure sites Arm, right (06/08/23 4:39 PM) Temperature Route Oral (06/08/23 4:39 PM) Dry Weight 59 kg (06/08/23 4:39 PM) Social History Social History Type Response Smoking Status 10 or more cigarette s (1/2 pack or more)/day in last 30 days entered on: 03/13/22 Sex Patient Care team information Care Team Personnel Name: April Landrum RN Position: [facility] RN Member Role: Primary Care Nurse Name: Casey Suarez MD Position: [facility] Physician - Primary Care Member Role: PCP Address: Address: [address] [place] [id number] Name: Betty Rodriguez RN [facility] [...] Care Nurse Name: Desiree Caballero RN Position: [facility] Sample Grader Member Role: Primary Care Nurse Name: Melvina Palacios RN Position: [facility] RN Member Role: Primary Care Nurse Name: Diandra Méndez RN Position: [facility] RN Member Role: Primary Care Nurse Care Team Related Persons Name: LAYLA NARAYANAN Address: [address] [address]
--- OUTSIDE RECORDS SUMMARY | 2023-09-15 18:41 | XMS_ITS | Continuity of Care Document ---
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# [id number] 3Result Comment: [facility]# [address] [phone] 4Result Comment: Pt tolerated well. [facility] #[id number] 5Location History: [facility] 6Result Comment: [facility]:[id number] 7Result Comment: [05/06/2017] [facility]:[id number] Medications aspirin 81 mg oral delayed release tablet 1 tablet, By Mouth, Daily, # 90 tablet, 3 Refills, Maintenance, 06/09/22 10:43:00 EST, [facility] #[id number], 167.6, cm, 06/09/22 10:24:00 EST, Height, 63.6, kg, 09/22/21 9:54:00 EDT, Dry Weight Start Date: 06/09/22 Status: Ordered atorvastatin 80 mg oral tablet 1 tablet, By Mouth, Daily at bedtime, # 90 tablet, 0 Refills, Maintenance, 12/14/22 10:04:00 EDT, [facility] #[id number], 167.6, cm, 10/22/22 8:47:00 EDT, Height, 63.6, kg, 09/22/21 9:54:00 EDT,Dry Weight Start Date: 12/14/22 Status: Ordered EpiPen 2-Sameer 0.3 mg injectable kit = 0.3 mg, Intramuscular, Once, Must go to hospital if used, # 1 each, 1 Refills, Soft Stop, 01/09/21 14:45:00 EDT, [facility] #[id number], 167.64, cm, 01/09/21 14:27:00 EDT, Height, 63.64, kg, 10/30/20 11:22:00 EDT, Dry Weight Start Date: 01/09/21 Status: Ordered gabapentin 300 mg oral capsule 2, capsule, By Mouth, 3 times a day, # 540 capsule, Refills 3, Tot. Refills 3, Maintenance, 04/01/23 11:33:00 EDT, Route to Pharmacy Electronically, [facility] #[id number], 167.6, cm, 04/01/23 11:20:00 EDT, Height, 63.6, kg, 09/22/21 9:54:00 EDT,... Start Date: 04/01/23 Stop Date: 03/26/24 Status: Ordered multivitamin Multiple Vitamins oral tablet 1 tablet, By Mouth, Daily, # 90 tablet, 3 Refills, Maintenance, 06/09/22 10:44:00 EST, [facility] #[id number], 90, 1 tablet By Mouth Daily, 167.6, cm, 06/09/22 10:24:00 EST, Height, 63.6, kg, 09/22/21 9:54:00 EDT, Dry Weight Start Date: 06/09/22 Status: Ordered Nutritional Supplements See Instructions, # 90 each, Refills 11, Tot. Refills 11, Maintenance, High Protein Ensure Use TID DX Pancreatitis, Weight Loss ICD 10 K85.90 R63.4 3 [place] 3 Vanilla Height 5'6 Weight 130lbs, 04/01/23 11:39:00 EDT, Supply Start Date: 04/01/23 Status: Ordered omeprazole 40 mg oral enteric coated capsule 1 capsule, By Mouth, Daily, # 30 capsule, 5 Refills, Maintenance, 12/02/22 11:21:00 EDT, [facility] #[id number], 167.6, cm, 10/22/22 8:47:00 EDT, Height, 63.6, kg, 09/22/21 9:54:00 EDT, Dry Weight Start Date: 12/02/22 Status: Ordered ProAir HFA 90 mcg/inh inhalation aerosol with adapter 2, puffs, Inhalation, Every 6 hours, PRN, # 8.5 Gm, Refills 5, Tot. Refills 5, Maintenance, 07/04/20 8:18:00 EST, Aerosol, Route to Pharmacy Electronically, [id number], [facility] #[id number], 168, cm, 06/14/20 10:38:00... Start Date: 07/04/20 Status: Ordered tamsulosin 0.4 mg oral capsule 0.8 mg, 2, capsule, By Mouth, Daily, # 180 capsule, Refills 3, Tot. Refills 3, Maintenance, 10/15/22 9:26:00 EDT, Route to Pharmacy Electronically, [facility] #[id number], 167.6, cm, 10/15/22 9:15:00 EDT, Height, 63.6, kg, 09/22/21 9:54:00 EDT, D... Start Date: 10/15/22 Stop Date: 10/10/23 Status: Ordered traZODone 150 mg oral tablet 1 tablet, By Mouth, Daily at bedtime, PRN NEEDED FOR SLEEP, # 90 tablet, 1 Refills, Maintenance,03/23/23 8:56:00 EDT, [facility] #[id number], 167.6, cm, 03/22/23 8:23:00 EDT, Height, 63.6, [...] * Event Display: CT Scan Neck, Non- BH Authored Date: * Event Display: MRI Spine, Non- BH [...] Team Personnel Name: April Landrum RN Position: [facility] RN Member Role: Primary Care Nurse Name: Casey Suarez MD Position: [facility] Physician - Primary Care Member Role: PCP Address: Address: [address] [place] [id number] Name: Betty Rodriguez RN Position: [facility] RN Member Role: Primary Care Nurse Name: Damon Elaine RN Position: [facility] SN RN Member Role: Primary Care Nurse Name: Neelima Manrique RN Position: [facility] RN Member Role: Primary Care Nurse Name: Maddison Lindquist RN Position: [facility] SN RN Member Role: Primary Care Nurse Name: Mahesh Castillo RN Position: [facility] RN Member Role: Primary Care Nurse Name: Desiree Caballero RN Position: [facility] Hospital Checkout Supervisor Member Role: Primary Care Nurse Name: Melvina Palacios RN Position: [facility] RN Member Role: Primary Care Nurse Name: Diandra Méndez RN Position: [facility] RN Member Role: Primary Care Nurse Care Team Related Persons Name: LAYLA NARAYANAN Address: home [address] [place] [address]
--- OUTSIDE RECORDS SUMMARY | 2023-09-15 18:42 | XMS_ITS | Continuity of Care Document ---
Author Organization [facility] [place] Address [address] [place] [address]- Care Team Providers Care Medical Program Specialist Name Role Phone Casey Suarez MD Primary Care Physician Encounter [facility] Date(s): 04/01/23 - 04/08/23 [facility] [place] Adult [address] [place] [address]- Attending Physician: Casey Suarez MD Allergies, Adverse [...] 23-valent vaccine 04/21/16 Recorded pneumococcal 23-valent vaccine 11/21/16 Recorded pneumococcal 23-valent vaccine 12/18/15 Given tetanus/diphtheria/pertussis, acel(Tdap) 04/29/16 Given tetanus-diphtheria toxoids (Td) 01/03/14 Recorded 1Result Comment: 30240-406-00 Checklist done 2Result Comment: [facility]# [id number] 3Result Comment: [facility]# [address] [phone] 4Result Comment: Pt tolerated well. [facility] #[id number] 5Location History: [facility] 6Result Comment: [facility]:[id number] 7Result Comment: [05/06/2017] [facility]:[id number] Medications aspirin 81 mg oral delayed release tablet 1 tablet, By Mouth, Daily, # 90 tablet, 3 Refills, Maintenance, 06/09/22 10:43:00 EST, [facility] #[id number], 167.6, cm, 06/09/22 10:24:00 EST, Height, 63.6, kg, 09/22/21 9:54:00 EDT, Dry Weight Start Date: 06/09/22 Status: Ordered atorvastatin 80 mg oral tablet 1 tablet, By Mouth, Daily at bedtime, # 90 tablet, 0 Refills, Maintenance, 12/14/22 10:04:00 EDT, [facility] #[id number], 167.6, cm, 10/22/22 8:47:00 EDT, Height, 63.6, kg, 09/22/21 9:54:00 EDT,Dry Weight Start Date: 12/14/22 Status: Ordered EpiPen 2-Sameer 0.3 mg injectable kit = 0.3 mg, Intramuscular, Once, Must go to hospital if used, # 1 each, 1 Refills, Soft Stop, 01/09/21 14:45:00 EDT, [facility] #[id number], 167.64, cm, 01/09/21 14:27:00 EDT, Height, 63.64, kg, 10/30/20 11:22:00 EDT, Dry Weight Start Date: 01/09/21 Status: Ordered gabapentin 300 mg oral capsule 2, capsule, By Mouth, 3 times a day, # 540 capsule, Refills 3, Tot. Refills 3, Maintenance, 04/01/23 11:33:00 EDT, Route to Pharmacy Electronically, [facility] #[id number], 167.6, cm, 04/01/23 11:20:00 EDT, Height, 63.6, kg, 09/22/21 9:54:00 EDT,... Start Date: 04/01/23 Stop Date: 03/26/24 Status: Ordered multivitamin Multiple Vitamins oral tablet 1 tablet, By Mouth, Daily, # 90 tablet, 3 Refills, Maintenance, 06/09/22 10:44:00 EST, [facility] #[id number], 90, 1 tablet By Mouth Daily, 167.6, cm, 06/09/22 10:24:00 EST, Height, 63.6, kg, 09/22/21 9:54:00 EDT, Dry Weight Start Date: 06/09/22 Status: Ordered Nutritional Supplements See Instructions, # 90 each, Refills 11, Tot. Refills 11, Maintenance, High Protein Ensure Use TID DX Pancreatitis, Weight Loss ICD 10 K85.90 R63.4 3 [place] 3 Vanilla Height 5'6 Weight 130lbs, 04/01/23 11:39:00 EDT, Supply Start Date: 04/01/23 Status: Ordered omeprazole 40 mg oral enteric coated capsule 1 capsule, By Mouth, Daily, # 30 capsule, 5 Refills, Maintenance, 12/02/22 11:21:00 EDT, [facility] #[id number], 167.6, cm, 10/22/22 8:47:00 EDT, Height, 63.6, kg, 09/22/21 9:54:00 EDT, Dry Weight Start Date: 12/02/22 Status: Ordered ProAir HFA 90 mcg/inh inhalation aerosol with adapter 2, puffs, Inhalation, Every 6 hours, PRN, # 8.5 Gm, Refills 5, Tot. Refills 5, Maintenance, 07/04/20 8:18:00 EST, Aerosol, Route to Pharmacy Electronically, [id number], [facility] #[id number], 168, cm, 06/14/20 10:38:00... Start Date: 07/04/20 Status: Ordered tamsulosin 0.4 mg oral capsule 0.8 mg, 2, capsule, By Mouth, Daily, # 180 capsule, Refills 3, Tot. Refills 3, Maintenance, 10/15/22 9:26:00 EDT, Route to Pharmacy Electronically, [facility] #[id number], 167.6, cm, 10/15/22 9:15:00 EDT, Height, 63.6, kg, 09/22/21 9:54:00 EDT, D... Start Date: 10/15/22 Stop Date: 10/10/23 Status: Ordered traZODone 150 mg oral tablet 1 tablet, By Mouth, Daily at bedtime, PRN NEEDED FOR SLEEP, # 90 tablet, 1 Refills, Maintenance,03/23/23 8:56:00 EDT, [facility] #[id number], 167.6, cm, 03/22/23 8:23:00 EDT, Height, 63.6, [...] 3R shoulder 2018 4Dr. Jimbo (ENT surgeons) Vital Signs Most recent to oldest [Reference Range]: 1 Height 167.6 cm (04/01/23 11:20 AM) Weight 59.7 kg (04/01/23 11:20 AM) Body Mass Index [18.5-24.99 kg/m2] 21.25 kg/m2 (04/01/23 11:20 AM) Blood Pressure [90-138/55-84 mm Hg] 136/ 64mm Hg (04/01/23 11:20 AM) Mode of Delivery (Oxygen) Room air (04/01/23 11:20 AM) Blood pressure sites Arm, left (04/01/23 11:20 AM) Weight Obtained Via Standing scale (04/01/23 11:20 AM) Social History Social History Type Response Smoking Status 10 or more cigarette s (1/2 pack or more)/day in last 30 days entered on: 03/13/22 Sex Note * Yvonne Conte: PERFORM, SIGN, VERIFY Event Display: Patient Education/Instruction Authored Date: [id number] [facility] *BMP So [place] Clinical Summary Name CATHLEEN NARAYANAN Age 57 Years 1965 PCP Casey Suarez MD PCP Visit Date 04/01/2023 11:18:00 Additional Instructions: Scheduled Appointments?? Future Appointments ?[facility] ?Phone:??--?Fax:??-- ?Appt. Date:??08/17/2023?8:30 AM ?Scheduled Provider:??Vick Thakur MD Follow-Up Instructions ?? With: Address: When: Casey Suarez MD In 6 months Comments: Physical examination Diagnosis Insomnia, unspecified; Chronic obstructive pulmonary disease, unspecified; 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; Essential (primary) hypertension; Atherosclerotic heart disease of [place] coronary artery without angina pectoris; Cerebrovascular disease, unspecified; Pure hypercholesterolemia, unspecified; Tobacco use Medications: Please continue your medications until treatment is completed or stopped by your provider. Discuss any questions related to medications with your provider. Medications to Continue Taking That Have Changed [facility] #[id number], [address], [place] [id number], [phone] - Gabapentin (gabapentin 300 mg oral capsule) 2 capsule Oral 3 times a day for 90 Days. Refills: 3. Next Dose: - - Durable Medical Equipment (Nutritional Supplements) High Protein Ensure Use TID DX Pancreatitis, Weight Loss ICD 10 K85.90 R63.4 3 [place] 3 Vanilla Height 5'6 Weight 130lbs. Refills: 11. Next Dose: These medications were not printed or sent to your pharmacy - Atorvastatin (atorvastatin 80 mg oral tablet) 1 tab(s) Oral Daily at Bedtime. Refills: 0. Next Dose: Medications to Continue with No Changes These medications were not printed or sent to your pharmacy Albuterol (ProAir HFA 90 mcg/inh inhalation aerosol with adapter) 2 puff(s) Inhalation every 6 hours as needed for wheezing. Refills: 5. Next Dose: Aspirin (aspirin 81 mg oral delayed release tablet) 1 tab(s) Oral Daily. Refills: 3. Next Dose: EPINEPHrine (EpiPen 2-Sameer 0.3 mg injectable kit) 0.3 Milligram Intramuscular once. Must go to hospital if used. Refills: 1. Next Dose: Multivitamin (multivitamin Multiple Vitamins oral tablet) 1 tab(s) Oral Daily. Refills: 3. Next Dose: Omeprazole (omeprazole 40 mg oral enteric coated capsule) 1 capsule Oral Daily. Refills: 5. Next Dose: Tamsulosin (tamsulosin 0.4 mg oral capsule) 2 capsule Oral Daily for 90 Days. Refills: 3. Next Dose: Trazodone (traZODone 150 mg oral tablet) 1 tab(s) Oral Daily at Bedtime as needed NEEDED FOR SLEEP. Refills: 1. Next Dose: Allergy Info:?? Bee Stings; Augmentin; acetaminophen-codeine; amoxicillin Medications Given This Visit Future Orders ?No future orders Vital Signs Height 167.6 cm Weight 59.7 kg BMI 21.25 kg/m2 Blood Pressure 136 mm Hg/64 mm Hg Temperature Pulse Rate Respiratory Rate 02 Sat Mode of Delivery /Room air You can now view a summary of your hospital visit from the comfort of your home through a free online portal called [employer]. [employer] is a website that allows you to securely view your medical information including discharge summary, medications and follow-up visits. ??You can alsosend a secure electronic message to your doctor???s office to request appointments, renew medications or just ask a question. You can enroll at [email or web address] or register during your next [...] primary care provider, you may find a [facility] provider by calling [facility] at [phone]. [facility], in keeping with [facility] guidance, no longer requires face masks for staff, patientsor visitors in most situations. Similar to time spent indoors at other locations, there is the chance that you were exposed to respiratory viruses during your time with us (such as flu or COVID-19).? If you develop symptoms concerning for a viral respiratory infection, please seek testing (and treatment if indicated) from your medical provider or home test kit. For information about the plan of care [...] Team Personnel Name: April Landrum RN Position: [facility] RN Member Role: Primary Care Nurse Name: Casey Suarez MD Position: [facility] Physician - Primary Care Member Role: PCP Address: Address: [address] [place] [address] Name: Betty Rodriguez RN Position: [facility] RN Member Role: Primary Care Nurse Name: Damon Elaine RN Position: [facility] SN RN Member Role: Primary Care Nurse Name: Neelima Manrique RN Position: [facility] RN Member Role: Primary Care Nurse Name: Maddison Lindquist RN Position: [facility] SN RN Member Role: Primary Care Nurse Name: Mahesh Castillo RN Position: [facility] RN Member Role: Primary Care Nurse Name: Desiree Caballero RN Position: [facility] Loan Supervisor Member Role: Primary Care Nurse Name: Melvina Palacios RN Position: [facility] RN Member Role: Primary Care Nurse Name: Diandra Méndez RN Position: [facility] RN Member Role: Primary Care Nurse Care Team Related Persons Name: LAYLA NARAYANAN Address: [address] [address]
--- OUTSIDE RECORDS SUMMARY | 2023-09-15 18:42 | XMS_ITS | Continuity of Care Document ---
Author Organization [facility] [place] Address [address] [place] [address]- Care Team Providers Care Palaeontologist Name Role Phone Casey Suarez MD Primary Care Physician Encounter [facility] Date(s): 06/11/23 - 07/11/23 [facility] Adult [address] [place] [address]- Allergies, Adverse Reactions, Alerts Substance Reaction Severity [...] tetanus-diphtheria toxoids (Td) 01/03/14 Recorded 1Result Comment: [id number] Checklist done 2Result Comment: [facility]# [id number] 3Result Comment: [facility]# [address] [id number] 4Result Comment: Pt tolerated well. [facility] #[id number] 5Location History: [facility] 6Result Comment: [facility]:[id number] 7Result Comment: [05/06/2017] [facility]:[id number] Medications aspirin 81 mg oral delayed release tablet 1 tablet, By Mouth, Daily, # 90 tablet, 3 Refills, Maintenance, 06/25/23 16:20:00 EST, [facility] #[id number], 168, cm, 06/11/23 11:00:00 EST, Height, 59, kg, 06/08/23 16:39:00 EST, Dry Weight Start Date: 06/25/23 Status: Ordered atorvastatin 80 mg oral tablet 1 tablet, By Mouth, Daily at bedtime, # 90 tablet, 0 Refills, Maintenance, 06/21/23 8:07:00 EST, [facility] #[id number], 168, cm, 06/11/23 11:00:00 EST, Height, 59, kg, 06/08/23 16:39:00 EST, Dry Weight Start Date: 06/21/23 Status: Ordered EpiPen 2-Sameer 0.3 mg injectable kit = 0.3 mg, Intramuscular, Once, Must go to hospital if used, # 1 each, 1 Refills, Soft Stop, 01/09/21 14:45:00 EDT, [facility] #[id number], 167.64, cm, 01/09/21 14:27:00 EDT, Height, 63.64, kg, 10/30/20 11:22:00 EDT, Dry Weight Start Date: 01/09/21 Status: Ordered gabapentin 300 mg oral capsule 2, capsule, By Mouth, 3 times a day, # 540 capsule, Refills 3, Tot. Refills 3, Maintenance, 04/01/23 11:33:00 EDT, Route to Pharmacy Electronically, [facility] #[id number], 167.6, cm, 04/01/23 11:20:00 EDT, Height, 63.6, kg, 09/22/21 9:54:00 EDT,... Start Date: 04/01/23 Stop Date: 03/26/24 Status: Ordered multivitamin Multiple Vitamins oral tablet 1 tablet, By Mouth, Daily, # 90 tablet, 3 Refills, Maintenance, 06/09/22 10:44:00 EST, [facility] #[id number], 90, 1 tablet By Mouth Daily, 167.6, cm, 06/09/22 10:24:00 EST, Height, 63.6, kg, 09/22/21 9:54:00 EDT, Dry Weight Start Date: 06/09/22 Status: Ordered Nutritional Supplements See Instructions, # 90 each, Refills 11, Tot. Refills 11, Maintenance, High Protein Ensure Use TID DX Pancreatitis, Weight Loss ICD 10 K85.90 R63.4 3 [place] 3 Vanilla Height 5'6 Weight 130lbs, 04/01/23 11:39:00 EDT, Supply Start Date: 04/01/23 Status: Ordered omeprazole 40 mg oral enteric coated capsule 1 capsule, By Mouth, Daily, # 30 capsule, 2 Refills, Maintenance, 06/11/23 18:48:00 EST, [facility] #[id number], 168, cm, 06/11/23 11:00:00 EST, Height, 59, kg, 06/08/23 16:39:00 EST, Dry Weight Start Date: 06/11/23 Status: Ordered predniSONE 20 mg oral tablet See Instructions, 2 tablets daily for 5 days and then 1 tablet daily for 5 days, # 15 tablet, 0 Refills, Maintenance, 06/10/23 11:26:00 EST, [facility] #[id number], Partial fill upon patient request if the prescription is for a schedule II opioid... Start Date: 06/10/23 Status: Ordered ProAir HFA 90 mcg/inh inhalation aerosol with adapter 2, puffs, Inhalation, Every 6 hours, PRN, # 8.5 Gm, Refills 5, Tot. Refills 5, Maintenance, 07/04/20 8:18:00 EST, Aerosol, Route to Pharmacy Electronically, [id number], [facility] #[id number], 168, cm, 06/14/20 10:38:00... Start Date: 07/04/20 Status: Ordered tamsulosin 0.4 mg oral capsule 0.8 mg, 2, capsule, By Mouth, Daily, # 180 capsule, Refills 3, Tot. Refills 3, Maintenance, 10/15/22 9:26:00 EDT, Route to Pharmacy Electronically, [facility] #[id number], 167.6, cm, 10/15/22 9:15:00 EDT, Height, 63.6, kg, 09/22/21 9:54:00 EDT, D... Start Date: 10/15/22 Stop Date: 10/10/23 Status: Ordered traZODone 150 mg oral tablet 1 tablet, By Mouth, Daily at bedtime, PRN NEEDED FOR SLEEP, # 90 tablet, 1 Refills, Maintenance,03/23/23 8:56:00 EDT, [facility] #[id number], 167.6, cm, 03/22/23 8:23:00 EDT, Height, 63.6, [...] Team Personnel Name: April Landrum RN Position: [facility] RN Member Role: Primary Care Nurse Name: Casey Suarez MD Position: [facility] Physician - Primary Care Member Role: PCP Address: Address: [address] [place] [id number] Name: Betty Rodriguez RN Position: [facility] RN Member Role: Primary Care Nurse Name: Damon Elaine RN Position: [facility] SN RN Member Role: Primary Care Nurse Name: Neelima Manrique RN Position: [facility] RN Member Role: Primary Care Nurse Name: Maddison Lindquist RN Position: [facility] SN RN Member Role: Primary Care Nurse Name: Mahesh Castillo RN Position: [facility] RN Member Role: Primary Care Nurse Name: Desiree Caballero RN Position: [facility] Member Role: Primary Care Nurse Name: Melvina Palacios RN Position: [facility] RN Member Role: Primary Care Nurse Name: Diandra Méndez RN Position: [facility] RN Member Role: Primary Care Nurse Care Team Related Persons Name: ORACIO LAYLA Address: [address] [address]
--- OUTSIDE RECORDS SUMMARY | 2023-09-15 18:42 | XMS_ITS | Continuity of Care Document ---
Author Organization [facility] Address [address] [place] [address]- Care Team Providers Care Oss Architect Name Role Phone Casey Suarez MD Primary Care Physician [place] [facility] [place]23 [place] 07/23/23 [facility] [address] [place], [place] [address] Attending Physician: AdmAna aguiar Admitting Physician: Admtr, [...] tetanus-diphtheria toxoids (Td) 01/03/14 Recorded 1Result Comment: 50038-504-24 Checklist done 2Result Comment: [facility]# [id number] 3Result Comment: [facility] [address] [phone] 4Result Comment: Pt tolerated well. [facility] #[id number] 5Location History: [facility] 6Result Comment: [facility]:[id number] 7Result Comment: [05/06/2017] [facility]:[id number] Medications aspirin 81 mg oral delayed release tablet 1 tablet, By Mouth, Daily, # 90 tablet, 3 Refills, Maintenance, 06/25/23 16:20:00 EST, [facility] #[id number], 168, cm, 06/11/23 11:00:00 EST, Height, 59, kg, 06/08/23 16:39:00 EST, Dry Weight Start Date: 06/25/23 Status: Ordered atorvastatin 80 mg oral tablet 1 tablet, By Mouth, Daily at bedtime, # 90 tablet, 0 Refills, Maintenance, 06/21/23 8:07:00 EST, [facility] #[id number], 168, cm, 06/11/23 11:00:00 EST, Height, 59, kg, 06/08/23 16:39:00 EST, Dry Weight Start Date: 06/21/23 Status: Ordered EpiPen 2-Sameer 0.3 mg injectable kit = 0.3 mg, Intramuscular, Once, Must go to hospital if used, # 1 each, 1 Refills, Soft Stop, 01/09/21 14:45:00 EDT, [facility] #[id number], 167.64, cm, 01/09/21 14:27:00 EDT, Height, 63.64, kg, 10/30/20 11:22:00 EDT, Dry Weight Start Date: 01/09/21 Status: Ordered gabapentin 300 mg oral capsule 2, capsule, By Mouth, 3 times a day, # 540 capsule, Refills 3, Tot. Refills 3, Maintenance, 04/01/23 11:33:00 EDT, Route to Pharmacy Electronically, [facility] #00540, 167.6, cm, 04/01/23 11:20:00 EDT, Height, 63.6, kg, 09/22/21 9:54:00 EDT,... Start Date: 04/01/23 Stop Date: 03/26/24 Status: Ordered multivitamin Multiple Vitamins oral tablet 1 tablet, By Mouth, Daily, # 90 tablet, 3 Refills, Maintenance, 06/09/22 10:44:00 EST, [facility] #71771, 90, 1 tablet By Mouth Daily, 167.6, cm, 06/09/22 10:24:00 EST, Height, 63.6, kg, 09/22/21 9:54:00 EDT, Dry Weight Start Date: 06/09/22 Status: Ordered Nutritional Supplements See Instructions, # 90 each, Refills 11, Tot. Refills 11, Maintenance, High Protein Ensure Use TID DX Pancreatitis, Weight Loss ICD 10 K85.90 R63.4 3 [place] 3 Vanilla Height 5'6 Weight 130lbs, 04/01/23 11:39:00 EDT, Supply Start Date: 04/01/23 Status: Ordered omeprazole 40 mg oral enteric coated capsule 1 capsule, By Mouth, Daily, # 30 capsule, 2 Refills, Maintenance, 06/11/23 18:48:00 EST, [facility] #55922, 168, cm, 06/11/23 11:00:00 EST, Height, 59, kg, 06/08/23 16:39:00 EST, Dry Weight Start Date: 06/11/23 Status: Ordered predniSONE 20 mg oral tablet See Instructions, 2 tablets daily for 5 days and then 1 tablet daily for 5 days, # 15 tablet, 0 Refills, Maintenance, 06/10/23 11:26:00 EST, [facility] #[id number], Partial fill upon patient request if the prescription is for a schedule II opioid... Start Date: 06/10/23 Status: Ordered ProAir HFA 90 mcg/inh inhalation aerosol with adapter 2, puffs, Inhalation, Every 6 hours, PRN, # 8.5 Gm, Refills 0, Tot. Refills 0, Maintenance, 07/23/23 17:07:00 EST, Aerosol, Route to Pharmacy Electronically, [id number], [facility] #31478, 168, cm, 06/11/23 11:00:00... Start Date: 07/23/23 Status: Ordered tamsulosin 0.4 mg oral capsule 0.8 mg, 2, capsule, By Mouth, Daily, # 180 capsule, Refills 3, Tot. Refills 3, Maintenance, 10/15/22 9:26:00 EDT, Route to Pharmacy Electronically, [facility] #29945, 167.6, cm, 10/15/22 9:15:00 EDT, Height, 63.6, kg, 09/22/21 9:54:00 EDT, D... Start Date: 10/15/22 Stop Date: 10/10/23 Status: Ordered traZODone 150 mg oral tablet 1 tablet, By Mouth, Daily at bedtime, PRN NEEDED FOR SLEEP, # 90 tablet, 1 Refills, Maintenance,03/23/23 8:56:00 EDT, [facility] #26694, 167.6, cm, 03/22/23 8:23:00 EDT, Height, 63.6, [...] Team Personnel Name: April Landrum RN Position: [facility] RN Member Role: Primary Care Nurse Name: Casey Suarez MD Position: [facility] Physician - Primary Care Member Role: PCP Address: Address: [address] [place] [id number] Name: Betty Rodriguez RN Position: [facility] RN Member Role: Primary Care Nurse Name: Damon Elaine RN Position: [facility] SN RN Member Role: Primary Care Nurse Name: Neelima Manrique RN Position: [facility] RN Member Role: Primary Care Nurse Name: Maddison Lindquist RN Position: [facility] SN RN Member Role: Primary Care Nurse Name: Mahesh Castillo RN Position: [facility] RN Member Role: Primary Care Nurse Name: Desiree Caballero RN Position: [facility] Retail Commission Sales Associate Member Role: Primary Care Nurse Name: Melvina Palacios RN Position: [facility] RN Member Role: Primary Care Nurse Name: Diandra Méndez RN Position: [facility] RN Member Role: Primary Care Nurse Care Team Related Persons Name: LAYLA NARAYANAN Address: [address] [address]
--- OUTSIDE RECORDS SUMMARY | 2023-09-15 18:42 | XMS_ITS | Continuity of Care Document ---
Author Organization [facility] Address [address] [place] [address]- Care Team Providers Care Insurance Broker Name Role Phone Casey Suarez MD Primary Care Physician [phone] Encounter [facility] [place](s): 01/20/23 - 02/24/23 [facility] [address] [place] [address]- Encounter Diagnosis Atherosclerosis of left carotid artery(Discharge Diagnosis) - 01/22/23 History of DVT (deep vein thrombosis)(Discharge Diagnosis) - 01/22/23 CAD (coronary artery disease)(Discharge Diagnosis) - 01/22/23 Tobacco use(Discharge Diagnosis) - 01/22/23 PVD (peripheral vascular disease)(Discharge Diagnosis) - 01/22/23 Attending Physician: Ren Quevedo MD Admitting Physician: Ren Quevedo MD Referring Physician: Casey Suarez MD Allergies, [...] tetanus-diphtheria toxoids (Td) 01/03/14 Recorded 1Result Comment: [facility]:[id number] 2Result Comment: [facility]# [id number] 3Result Comment: [facility]# [address] [phone] 4Result Comment: Pt tolerated well. [facility] #[id number] 5Location History: [facility] 6Result Comment: [05/06/2017] [facility]:[id number] Medications aspirin 81 mg oral delayed release tablet 1 tablet, By Mouth, Daily, # 90 tablet, 3 Refills, Maintenance, 06/09/22 10:43:00 EST, [facility] #49334, 167.6, cm, 06/09/22 10:24:00 EST, Height, 63.6, kg, 09/22/21 9:54:00 EDT, Dry Weight Start Date: 06/09/22 Status: Ordered atorvastatin 80 mg oral tablet 1 tablet, By Mouth, Daily at bedtime, # 90 tablet, 0 Refills, Maintenance, 12/14/22 10:04:00 EDT, [facility] #22462, 167.6, cm, 10/22/22 8:47:00 EDT, Height, 63.6, kg, 09/22/21 9:54:00 EDT,Dry Weight Start Date: 12/14/22 Status: Ordered atorvastatin 80 mg oral tablet 1 tablet, By Mouth, Daily at bedtime, # 90 tablet, 0 Refills, Maintenance, 12/14/22 10:04:00 EDT, [facility] #63203, 167.6, cm, 10/22/22 8:47:00 EDT, Height, 63.6, kg, 09/22/21 9:54:00 EDT,Dry Weight Start Date: 12/14/22 Status: Ordered EpiPen 2-Sameer 0.3 mg injectable kit = 0.3 mg, Intramuscular, Once, Must go to hospital if used, # 1 each, 1 Refills, Soft Stop, 01/09/21 14:45:00 EDT, [facility] #78028, 167.64, cm, 01/09/21 14:27:00 EDT, Height, 63.64, kg, 10/30/20 11:22:00 EDT, Dry Weight Start Date: 01/09/21 Status: Ordered gabapentin 300 mg oral capsule 2, capsule, By Mouth, 2 times a day, # 120 capsule, Refills 5, Maintenance, 11/05/22 11:24:00 EDT, Route to Pharmacy Electronically, [facility] #[id number], 167.6, cm, 10/22/22 8:47:00 EDT, Height, 63.6, [...] tablet, 3 Refills, Maintenance, 06/09/22 10:44:00 EST, [facility] #71832, 90, 1 tablet By Mouth Daily, 167.6, cm, 06/09/22 10:24:00 EST, Height, 63.6, kg, 09/22/21 9:54:00 EDT, Dry Weight Start Date: 06/09/22 Status: Ordered Nutritional Supplements See Instructions, # 90 each, Refills 11, Tot. Refills 11, Maintenance, High Protein Ensure Use TID DX Pancreatitis, Weight Loss ICD 10 K85.90 R63.4 3 [place] 3 Vanilla Height 5'6 Weight 130lbs, 12/20/20 7:33:00 EDT, Supply Start Date: 12/20/20 Status: Ordered omeprazole 40 mg oral enteric coated capsule 1 capsule, By Mouth, Daily, # 30 capsule, 5 Refills, Maintenance, 12/02/22 11:21:00 EDT, [facility] #79142, 167.6, cm, 10/22/22 8:47:00 EDT, Height, 63.6, kg, 09/22/21 9:54:00 EDT, Dry Weight Start Date: 12/02/22 Status: Ordered PEG-3350 with Electrolytes (Eqv-GoLYTELY) oral powder for reconstitution See Instructions, 1 glass every 15-30 minutes until finished, # 4,000 mL, 0 Refills, Maintenance, 08/26/20 16:28:00 EDT, [facility] #41307, Partial fill upon patient request if the prescription is for a schedule II opioid drug., 1 glass ever... Start Date: 08/26/20 Status: Ordered ProAir HFA 90 mcg/inh inhalation aerosol with adapter 2, puffs, Inhalation, Every 6 hours, PRN, # 8.5 Gm, Refills 5, Tot. Refills 5, Maintenance, 07/04/20 8:18:00 EST, Aerosol, Route to Pharmacy Electronically, [id number], [facility] #76575, 168, cm, 06/14/20 10:38:00... Start Date: 07/04/20 [...] 10/15/22 9:26:00 EDT, Route to Pharmacy Electronically, [facility] #[id number], 167.6, cm, 10/15/22 9:15:00 EDT, Height, 63.6, [...] 90 tablet, 1 Refills, Maintenance,09/02/22 10:55:00 EDT, [facility] #77738, 167.6, cm, 06/16/22 7:22:00 EST, Height, 63.6, [...] Active Nocturia Confirmed Active Paresthesias Confirmed Active PVD (peripheral vascular disease) Confirmed Active Colon polyps Confirmed Active Postconcussion syndrome Confirmed Active PTSD (post-traumatic stress disorder) Confirmed Active Depression, major, recurrent, in remission Confirmed Active Sciatica Confirmed Active Shoulder pain, right Confirmed Active Tobacco use Confirmed Active Tubular adenoma of colon Confirmed 02/02/17 Active 1Atherosclerosis by lumbar spine x-ray 2018. 2Repeat EGD in 07/2020 for surveillance 3R shoulder 2018 4Dr. Jimbo (ENT surgeons) Diagnosis Diagnosis Type Effective Dates Health Status Clinical Service Informant Atherosclerosis of left carotid artery Discharge Diagnosis 01/22/23 History of DVT (deep vein thrombosis) Discharge Diagnosis 01/22/23 CAD (coronary artery disease) Discharge Diagnosis 01/22/23 Tobacco use Discharge Diagnosis 01/22/23 PVD (peripheral vascular disease) Discharge Diagnosis 01/22/23 Social History Social History Type Response Smoking Status 10 or more cigarette s (1/2 pack or more)/day in last 30 days entered on: 03/13/22 Sex Patient Care team information Care Team Personnel Name: April Landrum RN Position: [facility] RN Member Role: Primary Care Nurse Name: Talib Jensen RN Position: [facility] RN Member Role: Primary Care Nurse Name: Casey Suarez MD Position: [facility] Physician - Primary Care Member Role: PCP Address: Address: [address] [place] [id number] Name: Betty Rodriguez RN Position: [facility] RN Member Role: Primary Care Nurse Name: Damon Elaine RN Position: [facility] RN Member Role: Primary Care Nurse Name: Neelima Manrique RN Position: [facility] RN Member Role: Primary Care Nurse Name: Maddison Lindquist RN Position: [facility] RN Member Role: Primary Care Nurse Name: Mahesh Castillo RN Position: [facility] RN Member Role: Primary Care Nurse Name: Desiree Caballero RN Position: [facility] [employer] Member Role: Primary Care Nurse Name: Melvina Palacios RN Position: [facility] RN Member Role: Primary Care Nurse Name: Diandra Méndez RN Position: [facility] RN Member Role: Primary Care Nurse Care Team Related Persons Name: LAYLA NARAYANAN Address: [address] [address]
--- OUTSIDE RECORDS SUMMARY | 2023-09-15 18:43 | XMS_ITS | Continuity of Care Document ---
Author Organization [facility] Address [address] [place] [address]- Care Team Providers Care Continuous Process Machine Operator Name Role Phone Casey Suarez MD Primary Care Physician [phone] Encounter [facility] Date(s): 03/17/23 - 04/16/23 [facility] [address] [place] [address]- Attending Physician: Ana Del Angel Admitting Physician: Admtr, Ar8 Referring Physician: Admtr, [...] tetanus-diphtheria toxoids (Td) 01/03/14 Recorded 1Result Comment: 35583-248-02 Checklist done 2Result Comment: [facility]# [id number] 3Result Comment: [facility]# [address] 32159-995-24 4Result Comment: Pt tolerated well. [facility] #[id number] 5Location History: [facility] 6Result Comment: [facility]:[id number] 7Result Comment: [05/06/2017] [facility]:3858-3831-37 Medications aspirin 81 mg oral delayed release tablet 1 tablet, By Mouth, Daily, # 90 tablet, 3 Refills, Maintenance, 06/09/22 10:43:00 EST, [facility] #[id number], 167.6, cm, 06/09/22 10:24:00 EST, Height, 63.6, kg, 09/22/21 9:54:00 EDT, Dry Weight Start Date: 06/09/22 Status: Ordered atorvastatin 80 mg oral tablet 1 tablet, By Mouth, Daily at bedtime, # 90 tablet, 0 Refills, Maintenance, 12/14/22 10:04:00 EDT, [facility] #68950, 167.6, cm, 10/22/22 8:47:00 EDT, Height, 63.6, kg, 09/22/21 9:54:00 EDT,Dry Weight Start Date: 12/14/22 Status: Ordered EpiPen 2-Sameer 0.3 mg injectable kit = 0.3 mg, Intramuscular, Once, Must go to hospital if used, # 1 each, 1 Refills, Soft Stop, 01/09/21 14:45:00 EDT, [facility] #55954, 167.64, cm, 01/09/21 14:27:00 EDT, Height, 63.64, kg, 10/30/20 11:22:00 EDT, Dry Weight Start Date: 01/09/21 Status: Ordered gabapentin 300 mg oral capsule 2, capsule, By Mouth, 3 times a day, # 540 capsule, Refills 3, Tot. Refills 3, Maintenance, 04/01/23 11:33:00 EDT, Route to Pharmacy Electronically, [facility] #[id number], 167.6, cm, 04/01/23 11:20:00 EDT, Height, 63.6, kg, 09/22/21 9:54:00 EDT,... Start Date: 04/01/23 Stop Date: 03/26/24 Status: Ordered multivitamin Multiple Vitamins oral tablet 1 tablet, By Mouth, Daily, # 90 tablet, 3 Refills, Maintenance, 06/09/22 10:44:00 EST, [facility] #[id number], 90, 1 tablet By Mouth Daily, 167.6, cm, 06/09/22 10:24:00 EST, Height, 63.6, kg, 09/22/21 9:54:00 EDT, Dry Weight Start Date: 06/09/22 Status: Ordered Nutritional Supplements See Instructions, # 90 each, Refills 11, Tot. Refills 11, Maintenance, High Protein Ensure Use TID DX Pancreatitis, Weight Loss ICD 10 K85.90 R63.4 3 [place] 3 Vanilla Height 5'6 Weight 130lbs, 04/01/23 11:39:00 EDT, Supply Start Date: 04/01/23 Status: Ordered omeprazole 40 mg oral enteric coated capsule 1 capsule, By Mouth, Daily, # 30 capsule, 5 Refills, Maintenance, 12/02/22 11:21:00 EDT, [facility] #91182, 167.6, cm, 10/22/22 8:47:00 EDT, Height, 63.6, kg, 09/22/21 9:54:00 EDT, Dry Weight Start Date: 12/02/22 Status: Ordered ProAir HFA 90 mcg/inh inhalation aerosol with adapter 2, puffs, Inhalation, Every 6 hours, PRN, # 8.5 Gm, Refills 5, Tot. Refills 5, Maintenance, 07/04/20 8:18:00 EST, Aerosol, Route to Pharmacy Electronically, [id number], [facility] #[id number], 168, cm, 06/14/20 10:38:00... Start Date: 07/04/20 Status: Ordered tamsulosin 0.4 mg oral capsule 0.8 mg, 2, capsule, By Mouth, Daily, # 180 capsule, Refills 3, Tot. Refills 3, Maintenance, 10/15/22 9:26:00 EDT, Route to Pharmacy Electronically, [facility] #73198, 167.6, cm, 10/15/22 9:15:00 EDT, Height, 63.6, kg, 09/22/21 9:54:00 EDT, D... Start Date: 10/15/22 Stop Date: 10/10/23 Status: Ordered traZODone 150 mg oral tablet 1 tablet, By Mouth, Daily at bedtime, PRN NEEDED FOR SLEEP, # 90 tablet, 1 Refills, Maintenance,03/23/23 8:56:00 EDT, [facility] #77019, 167.6, cm, 03/22/23 8:23:00 EDT, Height, 63.6, [...] RN Member Role: Primary Care Nurse Name: aCsey Suarez MD Position: [facility] Physician - Primary Care Member Role: PCP Address: Address: [address] [place] [id number] Name: Betty Rodriguez RN Position: [facility] RN Member Role: Primary Care Nurse Name: Damon Elaine RN Position: [facility] SN RN Member Role: Primary Care Nurse Name: Neelima Manrique RN Position: [facility] RN Member Role: Primary Care Nurse Name: Maddison Lindquist RN Position: [facility] SN RN Member Role: Primary Care Nurse Name: Mhaesh Castillo RN Position: [facility] RN Member Role: Primary Care Nurse Name: Desiree Caballero RN Position: [facility] Loan Interviewer Member Role: Primary Care Nurse Name: Melvina Palacios RN Position: [facility] RN Member Role: Primary Care Nurse Name: Diandra Méndez RN Position: [facility] RN Member Role: Primary Care Nurse Care Team Related Persons Name: LAYLA NARAYANAN Address: [address] [address]
--- OUTSIDE RECORDS SUMMARY | 2023-09-15 18:44 | XMS_ITS | Continuity of Care Document ---
Author Organization [facility] Address [address] [place] [address]- Care Team Providers Care Mailing Clerk Name Role Phone Daniela BROWN, Casey Jiménez Primary Care Physician [place] [facility] [place](s[place] 12/17/22 - 04/16/23 [facility] [address] [place] [address]- Attending Physician: Kathy BROWN, Ashequl Admitting Physician: Kathy BROWN, Ashequkamlesh Referring Physician: Casey Suarez MD Allergies, Adverse [...] tetanus-diphtheria toxoids (Td) 01/03/14 Recorded 1Result Comment: [id number] Checklist done 2Result Comment: [facility]# [id number] 3Result Comment: [facility]# [address] [phone] 4Result Comment: Pt tolerated well. [facility] #[id number] 5Location History: [facility] 6Result Comment: [facility]:[id number] 7Result Comment: [05/06/2017] [facility]:9425-2034-17 Medications aspirin 81 mg oral delayed release tablet 1 tablet, By Mouth, Daily, # 90 tablet, 3 Refills, Maintenance, 06/09/22 10:43:00 EST, [facility] #[id number], 167.6, cm, 06/09/22 10:24:00 EST, Height, 63.6, kg, 09/22/21 9:54:00 EDT, Dry Weight Start Date: 06/09/22 Status: Ordered atorvastatin 80 mg oral tablet 1 tablet, By Mouth, Daily at bedtime, # 90 tablet, 0 Refills, Maintenance, 12/14/22 10:04:00 EDT, [facility] #[id number], 167.6, cm, 10/22/22 8:47:00 EDT, Height, 63.6, kg, 09/22/21 9:54:00 EDT,Dry Weight Start Date: 12/14/22 Status: Ordered EpiPen 2-Sameer 0.3 mg injectable kit = 0.3 mg, Intramuscular, Once, Must go to hospital if used, # 1 each, 1 Refills, Soft Stop, 01/09/21 14:45:00 EDT, [facility] #38490, 167.64, cm, 01/09/21 14:27:00 EDT, Height, 63.64, kg, 10/30/20 11:22:00 EDT, Dry Weight Start Date: 01/09/21 Status: Ordered gabapentin 300 mg oral capsule 2, capsule, By Mouth, 3 times a day, # 540 capsule, Refills 3, Tot. Refills 3, Maintenance, 04/01/23 11:33:00 EDT, Route to Pharmacy Electronically, [facility] #[id number], 167.6, cm, 04/01/23 11:20:00 EDT, Height, 63.6, kg, 09/22/21 9:54:00 EDT,... Start Date: 04/01/23 Stop Date: 03/26/24 Status: Ordered multivitamin Multiple Vitamins oral tablet 1 tablet, By Mouth, Daily, # 90 tablet, 3 Refills, Maintenance, 06/09/22 10:44:00 EST, [facility] #48617, 90, 1 tablet By Mouth Daily, 167.6, cm, 06/09/22 10:24:00 EST, Height, 63.6, kg, 09/22/21 9:54:00 EDT, Dry Weight Start Date: 06/09/22 Status: Ordered Nutritional Supplements See Instructions, # 90 each, Refills 11, Tot. Refills 11, Maintenance, High Protein Ensure Use TID DX Pancreatitis, Weight Loss ICD 10 K85.90 R63.4 3 [place] 3 Vanilla Height 5'6 Weight 130lbs, 04/01/23 11:39:00 EDT, Supply Start Date: 04/01/23 Status: Ordered omeprazole 40 mg oral enteric coated capsule 1 capsule, By Mouth, Daily, # 30 capsule, 5 Refills, Maintenance, 12/02/22 11:21:00 EDT, [facility] #57220, 167.6, cm, 10/22/22 8:47:00 EDT, Height, 63.6, kg, 09/22/21 9:54:00 EDT, Dry Weight Start Date: 12/02/22 Status: Ordered ProAir HFA 90 mcg/inh inhalation aerosol with adapter 2, puffs, Inhalation, Every 6 hours, PRN, # 8.5 Gm, Refills 5, Tot. Refills 5, Maintenance, 07/04/20 8:18:00 EST, Aerosol, Route to Pharmacy Electronically, [id number], [facility] #85563, 168, cm, 06/14/20 10:38:00... Start Date: 07/04/20 Status: Ordered tamsulosin 0.4 mg oral capsule 0.8 mg, 2, capsule, By Mouth, Daily, # 180 capsule, Refills 3, Tot. Refills 3, Maintenance, 10/15/22 9:26:00 EDT, Route to Pharmacy Electronically, [facility] #16299, 167.6, cm, 10/15/22 9:15:00 EDT, Height, 63.6, kg, 09/22/21 9:54:00 EDT, D... Start Date: 10/15/22 Stop Date: 10/10/23 Status: Ordered traZODone 150 mg oral tablet 1 tablet, By Mouth, Daily at bedtime, PRN NEEDED FOR SLEEP, # 90 tablet, 1 Refills, Maintenance,03/23/23 8:56:00 EDT, [facility] #15644, 167.6, cm, 03/22/23 8:23:00 EDT, Height, 63.6, [...] 07/2020 for surveillance 3R shoulder [address] 4Dr. Kelviner (ENT surgeons) Social History Social History Type Response Smoking Status 10 or more cigarette s (1/2 pack or more)/day in last 30 days entered on: 03/13/22 Sex Patient Care team information Care Team Personnel Name: April Landrum RN Position: [facility] RN Member Role: Primary Care Nurse Name: Casey Suarez MD Position: [facility] Physician - Primary Care Member Role: PCP Address: Address: [address] [place] [id number] Name: Betty Rodriguez RN Position: [facility] RN Member Role: Primary Care Nurse Name: Damon Elaine RN Position: [facility] SN RN Member Role: Primary Care Nurse Name: Neelima Manrique RN Position: [facility] RN Member Role: Primary Care Nurse Name: Maddison Lindquist RN Position: [facility] SN RN Member Role: Primary Care Nurse Name: Mahesh Castillo RN Position: [facility] RN Member Role: Primary Care Nurse Name: Desiree Caballero RN Position: [facility] Hospital Nuclear Medicine Chief Technologist Member Role: Primary Care Nurse Name: Melvina Palacios RN Position: [facility] RN Member Role: Primary Care Nurse Name: Diandra Méndez RN Position: [facility] RN Member Role: Primary Care Nurse Care Team Related Persons Name: ORACIOLAYLA Valadez Address: [address] [address]
--- OUTSIDE RECORDS SUMMARY | 2023-09-15 18:44 | XMS_ITS | Continuity of Care Document ---
Author Organization [facility] Address [address] [place] [address]- Care Team Providers Care Office 365 Consultant Name Role Phone Casey Suarez MD Primary Care Physician [phone] Encounter [facility] [place] Date(s): 03/22/23 - 04/21/23 [facility] [address] [place], [place] [address] Attending Physician: AdmAna aguiar Admitting Physician: Admtr, [...] tetanus-diphtheria toxoids (Td) 01/03/14 Recorded 1Result Comment: [id number] Checklist done 2Result Comment: [facility]# [id number] 3Result Comment: [facility]# ON THE [address] [id number] 4Result Comment: Pt tolerated well. [facility] #[id number] 5Location History: [facility] 6Result Comment: [facility]:2671-9092-20 7Result Comment: [05/06/2017] [facility]:8621-5265-17 Medications aspirin 81 mg oral delayed release tablet 1 tablet, By Mouth, Daily, # 90 tablet, 3 Refills, Maintenance, 06/09/22 10:43:00 EST, [facility] #[id number], 167.6, cm, 06/09/22 10:24:00 EST, Height, 63.6, kg, 09/22/21 9:54:00 EDT, Dry Weight Start Date: 06/09/22 Status: Ordered atorvastatin 80 mg oral tablet 1 tablet, By Mouth, Daily at bedtime, # 90 tablet, 0 Refills, Maintenance, 12/14/22 10:04:00 EDT, [facility] #[id number], 167.6, cm, 10/22/22 8:47:00 EDT, Height, 63.6, kg, 09/22/21 9:54:00 EDT,Dry Weight Start Date: 12/14/22 Status: Ordered EpiPen 2-Sameer 0.3 mg injectable kit = 0.3 mg, Intramuscular, Once, Must go to hospital if used, # 1 each, 1 Refills, Soft Stop, 01/09/21 14:45:00 EDT, [facility] #[id number], 167.64, cm, 01/09/21 14:27:00 EDT, Height, 63.64, kg, 10/30/20 11:22:00 EDT, Dry Weight Start Date: 01/09/21 Status: Ordered gabapentin 300 mg oral capsule 2, capsule, By Mouth, 3 times a day, # 540 capsule, Refills 3, Tot. Refills 3, Maintenance, 04/01/23 11:33:00 EDT, Route to Pharmacy Electronically, [facility] #[id number], 167.6, cm, 04/01/23 11:20:00 EDT, Height, 63.6, kg, 09/22/21 9:54:00 EDT,... Start Date: 04/01/23 Stop Date: 03/26/24 Status: Ordered multivitamin Multiple Vitamins oral tablet 1 tablet, By Mouth, Daily, # 90 tablet, 3 Refills, Maintenance, 06/09/22 10:44:00 EST, [facility] #[id number], 90, 1 tablet By Mouth Daily, 167.6, cm, 06/09/22 10:24:00 EST, Height, 63.6, kg, 09/22/21 9:54:00 EDT, Dry Weight Start Date: 06/09/22 Status: Ordered Nutritional Supplements See Instructions, # 90 each, Refills 11, Tot. Refills 11, Maintenance, High Protein Ensure Use TID DX Pancreatitis, Weight Loss ICD 10 K85.90 R63.4 3 [place] 3 Vanilla Height 5'6 Weight 130lbs, 04/01/23 11:39:00 EDT, Supply Start Date: 04/01/23 Status: Ordered omeprazole 40 mg oral enteric coated capsule 1 capsule, By Mouth, Daily, # 30 capsule, 5 Refills, Maintenance, 12/02/22 11:21:00 EDT, [facility] #[id number], 167.6, cm, 10/22/22 8:47:00 EDT, Height, 63.6, kg, 09/22/21 9:54:00 EDT, Dry Weight Start Date: 12/02/22 Status: Ordered ProAir HFA 90 mcg/inh inhalation aerosol with adapter 2, puffs, Inhalation, Every 6 hours, PRN, # 8.5 Gm, Refills 5, Tot. Refills 5, Maintenance, 07/04/20 8:18:00 EST, Aerosol, Route to Pharmacy Electronically, [id number], [facility] #[id number], 168, cm, 06/14/20 10:38:00... Start Date: 07/04/20 Status: Ordered tamsulosin 0.4 mg oral capsule 0.8 mg, 2, capsule, By Mouth, Daily, # 180 capsule, Refills 3, Tot. Refills 3, Maintenance, 10/15/22 9:26:00 EDT, Route to Pharmacy Electronically, [facility] #[id number], 167.6, cm, 10/15/22 9:15:00 EDT, Height, 63.6, kg, 09/22/21 9:54:00 EDT, D... Start Date: 10/15/22 Stop Date: 10/10/23 Status: Ordered traZODone 150 mg oral tablet 1 tablet, By Mouth, Daily at bedtime, PRN NEEDED FOR SLEEP, # 90 tablet, 1 Refills, Maintenance,03/23/23 8:56:00 EDT, [facility] #[id number], 167.6, cm, 03/22/23 8:23:00 EDT, Height, 63.6, [...] Team Personnel Name: April Landrum RN Position: [facility] RN Member Role: Primary Care Nurse Name: Casey Suarez MD Position: [facility] Physician - Primary Care Member Role: PCP Address: Address: [address] [place] [id number] Name: Betty Rodriguez RN Position: [facility] RN Member Role: Primary Care Nurse Name: Damon Elaine RN Position: [facility] SN RN Member Role: Primary Care Nurse Name: Neelima Manrique RN Position: [facility] RN Member Role: Primary Care Nurse Name: Maddison Lindquist RN Position: [facility] SN RN Member Role: Primary Care Nurse Name: Mahesh Castillo RN Position: [facility] RN Member Role: Primary Care Nurse Name: Desiree Caballero RN Position: [facility] Certified Fire Investigator Member Role: Primary Care Nurse Name: Melvina Palacios RN Position: [facility] RN Member Role: Primary Care Nurse Name: Diandra Méndez RN Position: [facility] RN Member Role: Primary Care Nurse Care Team Related Persons Name: LAYLA NARAYANAN Address: [address] [address]
--- OUTSIDE RECORDS SUMMARY | 2023-09-15 18:45 | XMS_ITS | Continuity of Care Document ---
Author Organization [facility] Address [address] [place] [address]- Care Team Providers Care Label Drier Name Role Phone Casey Suarez MD Primary Care Physician [phone] Encounter [facility] [place] Date(s): 05/06/23 - 07/23/23 [facility] [address] [place] [address]- Attending Physician: Ren Quevedo MD Admitting Physician: [...] tetanus-diphtheria toxoids (Td) 01/03/14 Recorded 1Result Comment: [id number] Checklist done 2Result Comment: [facility]# [id number] 3Result Comment: [facility]# [address] [phone] 4Result Comment: Pt tolerated well. [facility] #[id number] 5Location History: [facility] 6Result Comment: [facility]:[id number] 7Result Comment: [05/06/2017] [facility]:[id number] Medications aspirin 81 mg oral delayed release tablet 1 tablet, By Mouth, Daily, # 90 tablet, 3 Refills, Maintenance, 06/25/23 16:20:00 EST, [facility] #[id number], 168, cm, 06/11/23 11:00:00 EST, Height, 59, kg, 06/08/23 16:39:00 EST, Dry Weight Start Date: 06/25/23 Status: Ordered atorvastatin 80 mg oral tablet 1 tablet, By Mouth, Daily at bedtime, # 90 tablet, 0 Refills, Maintenance, 06/21/23 8:07:00 EST, [facility] #[id number], 168, cm, 06/11/23 11:00:00 EST, Height, 59, kg, 06/08/23 16:39:00 EST, Dry Weight Start Date: 06/21/23 Status: Ordered EpiPen 2-Sameer 0.3 mg injectable kit = 0.3 mg, Intramuscular, Once, Must go to hospital if used, # 1 each, 1 Refills, Soft Stop, 01/09/21 14:45:00 EDT, [facility] #[id number], 167.64, cm, 01/09/21 14:27:00 EDT, Height, 63.64, kg, 10/30/20 11:22:00 EDT, Dry Weight Start Date: 01/09/21 Status: Ordered gabapentin 300 mg oral capsule 2, capsule, By Mouth, 3 times a day, # 540 capsule, Refills 3, Tot. Refills 3, Maintenance, 04/01/23 11:33:00 EDT, Route to Pharmacy Electronically, [facility] #[id number], 167.6, cm, 04/01/23 11:20:00 EDT, Height, 63.6, kg, 09/22/21 9:54:00 EDT,... Start Date: 04/01/23 Stop Date: 03/26/24 Status: Ordered multivitamin Multiple Vitamins oral tablet 1 tablet, By Mouth, Daily, # 90 tablet, 3 Refills, Maintenance, 06/09/22 10:44:00 EST, [facility] #[id number], 90, 1 tablet By Mouth Daily, 167.6, cm, 06/09/22 10:24:00 EST, Height, 63.6, kg, 09/22/21 9:54:00 EDT, Dry Weight Start Date: 06/09/22 Status: Ordered Nutritional Supplements See Instructions, # 90 each, Refills 11, Tot. Refills 11, Maintenance, High Protein Ensure Use TID DX Pancreatitis, Weight Loss ICD 10 K85.90 R63.4 3 [place] 3 Vanilla Height 5'6 Weight 130lbs, 04/01/23 11:39:00 EDT, Supply Start Date: 04/01/23 Status: Ordered omeprazole 40 mg oral enteric coated capsule 1 capsule, By Mouth, Daily, # 30 capsule, 2 Refills, Maintenance, 06/11/23 18:48:00 EST, [facility] #[id number], 168, cm, 06/11/23 11:00:00 EST, Height, 59, kg, 06/08/23 16:39:00 EST, Dry Weight Start Date: 06/11/23 Status: Ordered predniSONE 20 mg oral tablet See Instructions, 2 tablets daily for 5 days and then 1 tablet daily for 5 days, # 15 tablet, 0 Refills, Maintenance, 06/10/23 11:26:00 EST, [facility] #[id number], Partial fill upon patient request if the prescription is for a schedule II opioid... Start Date: 06/10/23 Status: Ordered ProAir HFA 90 mcg/inh inhalation aerosol with adapter 2, puffs, Inhalation, Every 6 hours, PRN, # 8.5 Gm, Refills 0, Tot. Refills 0, Maintenance, 07/23/23 17:07:00 EST, Aerosol, Route to Pharmacy Electronically, [id number], [facility] #[id number], 168, cm, 06/11/23 11:00:00... Start Date: 07/23/23 Status: Ordered tamsulosin 0.4 mg oral capsule 0.8 mg, 2, capsule, By Mouth, Daily, # 180 capsule, Refills 3, Tot. Refills 3, Maintenance, 10/15/22 9:26:00 EDT, Route to Pharmacy Electronically, [facility] #[id number], 167.6, cm, 10/15/22 9:15:00 EDT, Height, 63.6, kg, 09/22/21 9:54:00 EDT, D... Start Date: 10/15/22 Stop Date: 10/10/23 Status: Ordered traZODone 150 mg oral tablet 1 tablet, By Mouth, Daily at bedtime, PRN NEEDED FOR SLEEP, # 90 tablet, 1 Refills, Maintenance,03/23/23 8:56:00 EDT, [facility] #[id number], 167.6, cm, 03/22/23 8:23:00 EDT, Height, 63.6, [...] Team Personnel Name: April Landrum RN Position: [facility] RN Member Role: Primary Care Nurse Name: Casey Suarez MD Position: [facility] Physician - Primary Care Member Role: PCP Address: Address: [address] [place] [address] Name: Betty Rodriguez RN Position: [facility] RN Member Role: Primary Care Nurse Name: Damon Elaine RN Position: [facility] SN RN Member Role: Primary Care Nurse Name: Neelima Manrique RN Position: [facility] RN Member Role: Primary Care Nurse Name: Maddison Lindquist RN Position: [facility] SN RN Member Role: Primary Care Nurse Name: Mahesh Castillo RN Position: [facility] RN Member Role: Primary Care Nurse Name: Desiree Caballero RN Position: [facility] Engraver Seals Member Role: Primary Care Nurse Name: Melvina Palacios RN Position: [facility] RN Member Role: Primary Care Nurse Name: Diandra Méndez RN Position: [facility] RN Member Role: Primary Care Nurse Care Team Related Persons Name: LAYLA NARAYANAN Address: [address] [address]
--- OUTSIDE RECORDS SUMMARY | 2023-09-15 18:46 | XMS_ITS | Continuity of Care Document ---
Author Organization [facility] Address [address] [place] [address]- Care Team Providers Care Smoking Pipe Maker Name Role Phone Casey Suarez MD Primary Care Physician [phone] Encounter [facility] [place] Date(s): 03/22/23 - 03/29/23 [facility] [address] [place] [place] [address] Encounter Diagnosis Atherosclerosis of left carotid artery(Discharge Diagnosis) - 03/18/23 CAD (coronary artery disease)(Discharge Diagnosis) - 03/18/23 Chronic obstructive pulmonary disease (COPD)(Discharge Diagnosis) - 03/22/23 Tobacco use(Discharge Diagnosis) - 03/22/23 Attending Physician: Ren Quevedo MD Admitting Physician: [...] tetanus-diphtheria toxoids (Td) 01/03/14 Recorded 1Result Comment: [facility]:[id number] 2Result Comment: [facility]# [id number] 3Result Comment: [facility]# [address] 22653-753-71 4Result Comment: Pt tolerated well. [facility] #[id number] 5Location History: [facility] 6Result Comment: [05/06/2017] [facility]:[id number] Medications aspirin 81 mg oral delayed release tablet 1 tablet, By Mouth, Daily, # 90 tablet, 3 Refills, Maintenance, 06/09/22 10:43:00 EST, [facility] #[id number], 167.6, cm, 06/09/22 10:24:00 EST, Height, 63.6, kg, 09/22/21 9:54:00 EDT, Dry Weight Start Date: 06/09/22 Status: Ordered atorvastatin 80 mg oral tablet 1 tablet, By Mouth, Daily at bedtime, # 90 tablet, 0 Refills, Maintenance, 12/14/22 10:04:00 EDT, [facility] #[id number], 167.6, cm, 10/22/22 8:47:00 EDT, Height, 63.6, kg, 09/22/21 9:54:00 EDT,Dry Weight Start Date: 12/14/22 Status: Ordered atorvastatin 80 mg oral tablet 1 tablet, By Mouth, Daily at bedtime, # 90 tablet, 0 Refills, Maintenance, 12/14/22 10:04:00 EDT, [facility] #04135, 167.6, cm, 10/22/22 8:47:00 EDT, Height, 63.6, kg, 09/22/21 9:54:00 EDT,Dry Weight Start Date: 12/14/22 Status: Ordered EpiPen 2-Sameer 0.3 mg injectable kit = 0.3 mg, Intramuscular, Once, Must go to hospital if used, # 1 each, 1 Refills, Soft Stop, 01/09/21 14:45:00 EDT, [facility] #[id number], 167.64, cm, 01/09/21 14:27:00 EDT, Height, 63.64, kg, 10/30/20 11:22:00 EDT, Dry Weight Start Date: 01/09/21 Status: Ordered gabapentin 300 mg oral capsule 2, capsule, By Mouth, 2 times a day, # 120 capsule, Refills 5, Maintenance, 11/05/22 11:24:00 EDT, Route to Pharmacy Electronically, [facility] #[id number], 167.6, cm, 10/22/22 8:47:00 EDT, Height, 63.6, [...] tablet, 3 Refills, Maintenance, 06/09/22 10:44:00 EST, [facility] #[id number], 90, 1 tablet By Mouth Daily, 167.6, cm, 06/09/22 10:24:00 EST, Height, 63.6, kg, 09/22/21 9:54:00 EDT, Dry Weight Start Date: 06/09/22 Status: Ordered Nutritional Supplements See Instructions, # 90 each, Refills 11, Tot. Refills 11, Maintenance, High Protein Ensure Use TID DX Pancreatitis, Weight Loss ICD 10 K85.90 R63.4 3 [place] 3 Vanilla Height 5'6 Weight 130lbs, 12/20/20 7:33:00 EDT, Supply Start Date: 12/20/20 Status: Ordered omeprazole 40 mg oral enteric coated capsule 1 capsule, By Mouth, Daily, # 30 capsule, 5 Refills, Maintenance, 12/02/22 11:21:00 EDT, [facility] #[id number], 167.6, cm, 10/22/22 8:47:00 EDT, Height, 63.6, kg, 09/22/21 9:54:00 EDT, Dry Weight Start Date: 12/02/22 Status: Ordered PEG-3350 with Electrolytes (Eqv-GoLYTELY) oral powder for reconstitution See Instructions, 1 glass every 15-30 minutes until finished, # 4,000 mL, 0 Refills, Maintenance, 08/26/20 16:28:00 EDT, [facility] #[id number], Partial fill upon patient request if the prescription is for a schedule II opioid drug., 1 glass ever... Start Date: 08/26/20 Status: Ordered ProAir HFA 90 mcg/inh inhalation aerosol with adapter 2, puffs, Inhalation, Every 6 hours, PRN, # 8.5 Gm, Refills 5, Tot. Refills 5, Maintenance, 07/04/20 8:18:00 EST, Aerosol, Route to Pharmacy Electronically, [id number], [facility] #[id number], 168, cm, 06/14/20 10:38:00... Start Date: 07/04/20 [...] 10/15/22 9:26:00 EDT, Route to Pharmacy Electronically, [facility] #[id number], 167.6, cm, 10/15/22 9:15:00 EDT, Height, 63.6, [...] 90 tablet, 1 Refills, Maintenance,03/23/23 8:56:00 EDT, [facility] #[id number], 167.6, cm, 03/22/23 8:23:00 EDT, Height, 63.6, [...] Atherosclerosis of left carotid artery Discharge Diagnosis 03/18/23 CAD (coronary artery disease) Discharge Diagnosis 03/18/23 Chronic obstructive pulmonary disease (COPD) Discharge Diagnosis 03/22/23 Tobacco use Discharge Diagnosis 03/22/23 Vital Signs Most recent to oldest [Reference Range]: 1 Height 167.6 cm (03/22/23 8:23 AM) Weight 61.24 kg (03/22/23 8:23 AM) Oxygen Saturation [94-100 %] 98 % (03/22/23 8:23 AM) Pulse Rate [55-90 bpm] 72 bpm (03/22/23 8:23 AM) Body Mass Index [18.5-24.99 kg/m2] 21.8 kg/m2 (03/22/23 8:23 AM) Blood Pressure [90-138/55-84 mm Hg] 128/ 72mm Hg (03/22/23 8:23 AM) Blood pressure sites Arm, right (03/22/23 8:23 AM) Weight Obtained Via Patient/family state d (03/22/23 8:23 AM) Social History Social History Type Response Smoking Status 10 or more cigarette s (1/2 pack or more)/day in last 30 days entered on: 03/13/22 Sex Radiology * Event Display: CT Scan Neck, Non- BH Authored Date: [id number] Note * Barb Angel: PERFORM, SIGN, VERIFY Event Display: Patient Education/Instruction Authored Date: [id number] [facility] *[facility] [address] Clinical Summary Name CATHLEEN NARAYANAN Age 57 Years 1965 PCP Daniela BROWN, Casey Jim[id number] Visit Date 03/22/2023 08:12:00 Additional Instructions: Scheduled Appointments?? Future Appointments ?[facility] ?Phone:??--?Fax:??-- ?Appt. Date:??08/17/2023?8:30 AM ?Scheduled Provider:??Vick Thakur MD Follow-Up Instructions ?? With: Address: When: Emy BROWN, Ren [place] Within 1 year Comments: carotid duplex Diagnosis Occlusion and stenosis of left carotid artery; Atherosclerotic heart disease of algaaciq coronary artery without angina pectoris; Tobacco use; Chronic obstructive pulmonary disease, unspecified Medications: Please continue your medications until treatment is completed or stopped by your provider. Discuss any questions related to medications with your provider. Medications to Continue with No Changes These [...] Daily at Bedtime. Refills: 0. Next Dose: Atorvastatin (atorvastatin 80 mg oral tablet) 1 tab(s) Oral Daily at Bedtime. Refills: 0. Next Dose: Durable Medical Equipment (Nutritional Supplements) High Protein Ensure Use TID DX Pancreatitis, Weight Loss ICD 10 K85.90 R63.4 3 [place] 3 Vanilla Height 5'6 Weight 130lbs. Refills: [...] 2 capsule Oral twice a day. Refills: 5. Next Dose: Miscellaneous Rx (Large Blood Pressure Cuff) Large BP Cuff use as directed dx hypertension ICD 10 I11.9 Length of need Lifetime Weight 130lbs height 5'6. Refills: 0. Next Dose: Multivitamin (multivitamin Multiple Vitamins oral tablet) 1 tab(s) Oral Daily. Refills: 3. Next Dose: Omeprazole (omeprazole 40 mg oral enteric coated capsule) 1 capsule Oral Daily. Refills: 5. Next Dose: PEG Electrolyte Solution (PEG-3350 with Electrolytes (Eqv-GoLYTELY) oral powder for reconstitution)1 glass every 15-30 minutes until finished. Refills: 0. Next Dose: Tamsulosin (tamsulosin 0.4 mg oral capsule) 2 capsule Oral Daily for 90 Days. Refills: 3. Next Dose: Trazodone (traZODone 150 mg oral tablet) 1 tab(s) Oral Daily at Bedtime as needed NEEDED FOR SLEEP. Refills: 1. Next Dose: Allergy Info:?? Bee Stings; Augmentin; acetaminophen-codeine; amoxicillin Medications Given This Visit Future Orders ?VL Carotid Duplex Bilat Scan? Order Date:03/22/23?- Complete by?03/22/23 Vital Signs Height 167.6 cm Weight 61.24 kg BMI 21.8 kg/m2 Blood Pressure 128 mm Hg/72 mm Hg Temperature Pulse Rate 72 bpm Respiratory Rate 02 Sat Mode of Delivery 98 %/ You can now view a summary of your hospital visit from the comfort of your home through a free online portal called [facility] [employer] [facility]. [facility] [facility] is a website that allows you to securely view your medical information including discharge summary, medications and follow-up visits. ??You can alsosend a secure electronic message to your doctor???s office to request appointments, renew medications or just ask a question. You can enroll at [email or web address] or register during your next [...] primary care provider, you may find a [facility] provider by calling [facility] at [phone]. [facility], in keeping with [facility] guidance, no longer requires face masks [...] Team Personnel Name: April Landrum RN Position: [facility] RN Member Role: Primary Care Nurse Name: Talib Jensen RN Position: [facility] RN Member Role: Primary Care Nurse Name: Casey Suarez MD Position: [facility] Physician - Primary Care Member Role: PCP Address: Address: [address] [place] [address]- [place] Name: Betty Rodriguez RN Position: [facility] RN Member Role: Primary Care Nurse Name: Damon Elaine RN Position: [facility] SN RN Member Role: Primary Care Nurse Name: Neelima Manrique RN Position: [facility] RN Member Role: Primary Care Nurse Name: Maddison Lindquist RN Position: [facility] RN Member Role: Primary Care Nurse Name: Mahesh Castillo RN Position: [facility] RN Member Role: Primary Care Nurse Name: Desiree Caballero RN Position: [facility] [employer] Member Role: Primary Care Nurse Name: Melvina Palacios RN Position: [facility] RN Member Role: Primary Care Nurse Name: Diandra Méndez RN Position: [facility] RN Member Role: Primary Care Nurse Care Team Related Persons Name: LAYLA NARAYANAN Address: [address] [address]
--- OUTSIDE RECORDS SUMMARY | 2023-09-15 18:46 | XMS_ITS | Continuity of Care Document ---
Author Organization [facility] Address [address] [place] [id number] Care Team Providers Care Splicer Helper Name Role Phone Casey Suarez MD Primary Care Physician Encounter [facility] Date(s): 02/04/23 - 03/06/23 [facility] [address] [place] [id number] Allergies, Adverse Reactions, Alerts Substance Reaction Severity [...] tetanus-diphtheria toxoids (Td) 01/03/14 Recorded 1Result Comment: [facility]:[id number] 2Result Comment: [facility]# [id number] 3Result Comment: [facility]# [address] [phone] 4Result Comment: Pt tolerated well. [facility] #[id number] 5Location History: [facility] 6Result Comment: [05/06/2017] [facility]:[id number] Medications aspirin 81 mg oral delayed release tablet 1 tablet, By Mouth, Daily, # 90 tablet, 3 Refills, Maintenance, 06/09/22 10:43:00 EST, [facility] #[id number], 167.6, cm, 06/09/22 10:24:00 EST, Height, 63.6, kg, 09/22/21 9:54:00 EDT, Dry Weight Start Date: 06/09/22 Status: Ordered atorvastatin 80 mg oral tablet 1 tablet, By Mouth, Daily at bedtime, # 90 tablet, 0 Refills, Maintenance, 12/14/22 10:04:00 EDT, [facility] #[id number], 167.6, cm, 10/22/22 8:47:00 EDT, Height, 63.6, kg, 09/22/21 9:54:00 EDT,Dry Weight Start Date: 12/14/22 Status: Ordered atorvastatin 80 mg oral tablet 1 tablet, By Mouth, Daily at bedtime, # 90 tablet, 0 Refills, Maintenance, 12/14/22 10:04:00 EDT, [facility] #[id number], 167.6, cm, 10/22/22 8:47:00 EDT, Height, 63.6, kg, 09/22/21 9:54:00 EDT,Dry Weight Start Date: 12/14/22 Status: Ordered EpiPen 2-Sameer 0.3 mg injectable kit = 0.3 mg, Intramuscular, Once, Must go to hospital if used, # 1 each, 1 Refills, Soft Stop, 01/09/21 14:45:00 EDT, [facility] #[id number], 167.64, cm, 01/09/21 14:27:00 EDT, Height, 63.64, kg, 10/30/20 11:22:00 EDT, Dry Weight Start Date: 01/09/21 Status: Ordered gabapentin 300 mg oral capsule 2, capsule, By Mouth, 2 times a day, # 120 capsule, Refills 5, Maintenance, 11/05/22 11:24:00 EDT, Route to Pharmacy Electronically, [facility] #[id number], 167.6, cm, 10/22/22 8:47:00 EDT, Height, 63.6, [...] tablet, 3 Refills, Maintenance, 06/09/22 10:44:00 EST, [facility] #[id number], 90, 1 tablet By Mouth Daily, 167.6, cm, 06/09/22 10:24:00 EST, Height, 63.6, kg, 09/22/21 9:54:00 EDT, Dry Weight Start Date: 06/09/22 Status: Ordered Nutritional Supplements See Instructions, # 90 each, Refills 11, Tot. Refills 11, Maintenance, High Protein Ensure Use TID DX Pancreatitis, Weight Loss ICD 10 K85.90 R63.4 3 [place] 3 Vanilla Height 5'6 Weight 130lbs, 12/20/20 7:33:00 EDT, Supply Start Date: 12/20/20 Status: Ordered omeprazole 40 mg oral enteric coated capsule 1 capsule, By Mouth, Daily, # 30 capsule, 5 Refills, Maintenance, 12/02/22 11:21:00 EDT, [facility] #[id number], 167.6, cm, 10/22/22 8:47:00 EDT, Height, 63.6, kg, 09/22/21 9:54:00 EDT, Dry Weight Start Date: 12/02/22 Status: Ordered PEG-3350 with Electrolytes (Eqv-GoLYTELY) oral powder for reconstitution See Instructions, 1 glass every 15-30 minutes until finished, # 4,000 mL, 0 Refills, Maintenance, 08/26/20 16:28:00 EDT, [facility] #[id number], Partial fill upon patient request if the prescription is for a schedule II opioid drug., 1 glass ever... Start Date: 08/26/20 Status: Ordered ProAir HFA 90 mcg/inh inhalation aerosol with adapter 2, puffs, Inhalation, Every 6 hours, PRN, # 8.5 Gm, Refills 5, Tot. Refills 5, Maintenance, 07/04/20 8:18:00 EST, Aerosol, Route to Pharmacy Electronically, [id number], [facility] #[id number], 168, cm, 06/14/20 10:38:00... Start Date: 07/04/20 [...] 10/15/22 9:26:00 EDT, Route to Pharmacy Electronically, [facility] #[id number], 167.6, cm, 10/15/22 9:15:00 EDT, Height, 63.6, [...] 90 tablet, 1 Refills, Maintenance,09/02/22 10:55:00 EDT, [facility] #[id number], 167.6, cm, 06/16/22 7:22:00 EST, Height, 63.6, [...] Team Personnel Name: April Landrum RN Position: [facility] RN Member Role: Primary Care Nurse Name: Talib Jensen RN Position: [facility] RN Member Role: Primary Care Nurse Name: Casey Suarez MD Position: [facility] Physician - Primary Care Member Role: PCP Address: Address: [address] [place] [id number] Name: Betty Rodriguez RN Position: [facility] RN Member Role: Primary Care Nurse Name: Damon Elaine RN Position: [facility] SN RN Member Role: Primary Care Nurse Name: Neelima Manrique RN Position: [facility] RN Member Role: Primary Care Nurse Name: Maddison Lindquist RN Position: [facility] SN RN Member Role: Primary Care Nurse Name: Mahesh Castillo RN Position: [facility] RN Member Role: Primary Care Nurse Name: Desiree Caballero RN Position: [facility] Receptionist Member Role: Primary Care Nurse Name: Melvina Palacios RN Position: [facility] RN Member Role: Primary Care Nurse Name: Diandra Méndez RN Position: [facility] RN Member Role: Primary Care Nurse Care Team Related Persons Name: LAYLA NARAYANAN Address: [address] [address]
== END 2023-09-15 20:17 | disposition left against medical advice (07) ==
PROVIDERS: Emergency Provider Emergency Medicine; PCP Internal Medicine
DX: T26.82XA Corrosions of other specified parts of left eye and adnexa, initial encounter (principal); X08.8XXA Exposure to other specified smoke, fire and flames, initial encounter; Y93.9 Activity, unspecified; Y92.9 Unspecified place or not applicable; Y99.8 Other external cause status; Z79.899 Other long term (current) drug therapy
CPT/HCPCS: 99281